=== PATIENT | male | born 1940 | race Caucasian/White ===

== ENCOUNTER 2017-11-06 07:45 | Day surgery (SDC) | payer MEDICARE ==
[2017-10-25 15:55] VITALS: BMI 26.4
[~2017-11-06 07:45] MED LIST: HEPARIN SODIUM,PORCINE 5,000 UNIT/ML 1 ML VIAL SQ ONE; MORPHINE SULFATE 4 MG/ML SYRINGE IV PRN; ONDANSETRON 4 MG/2 ML VIAL IVP PRN; ceFAZolin IN SWFI 2 GM/20 ML SYRINGE IVP ONE
--- NOTE | 2017-11-06 08:46 | P.GSHP ---
History of Present Illness H&P Date: 11/06/17 Chief Complaint: Umbilical hernia, right femoral hernia This a 77-year-old male who has complaints of abdominal mass and pain. He was seen in the office found have a incarcerated umbilical hernia and a reducible right inguinal hernia. Patient presents today for laparoscopic robotic- assisted repair of his hernias. Past Medical History Past Medical History: Diabetes Mellitus, GERD/Reflux, Skin Disorder Additional Past Medical History / Comment(s): heeling shingles on rt side of chest History of Any Multi-Drug Resistant Organisms: None Reported Past Surgical History: Appendectomy, Orthopedic Surgery, Prostate Surgery Additional Past Surgical History / Comment(s): colonsocopy, maye knee arthroscopy , EGD with diliation, Past Anesthesia/Blood Transfusion Reactions: No Reported Reaction Smoking Status: Never smoker - Past Family History Mother Family Medical History: No Reported History Medications and Allergies Home Medications Medication Instructions Recorded Confirmed Type Omeprazole 20 mg PO DAILY 10/25/17 11/06/17 History metFORMIN HCL [Glucophage] 500 mg PO BID 10/25/17 11/06/17 History Allergies Allergy/AdvReac Type Severity Reaction Status Date / Time No Known Allergies Allergy Verified 11/06/17 08:31 Surgical - Exam Vital Signs Temp Pulse Resp BP Pulse Ox 97.1 F L 80 16 193/88 97 11/06/17 08:35 11/06/17 08:35 11/06/17 08:35 11/06/17 08:35 11/06/17 08:35 - General well developed, no distress - Eyes PERRL - ENT normal pinna - Neck no masses - Respiratory normal expansion - Cardiovascular Rhythm: regular - Abdomen Incarcerated umbilical hernia, reducible right inguinal hernia Abdomen: soft, non tender Assessment and Plan Assessment: Incarcerated umbilical hernia Reducible right inguinal hernia We'll perform laparoscopic robotic-assisted repair.
[2017-11-06] MEDS: LACTATED RINGERS 1,000 ML IV SCH (08:48)
[2017-11-06 08:51] LABS: Glucose,Whole Blood 158 mg/dL (75-99)
[2017-11-06] MEDS ORDERED: ePHEDrine SULFATE/0.9% NACL/PF 50 MG/5 ML SYRINGE IV ONE (08:58)
[2017-11-06] MEDS ORDERED: LIDOCAINE 1% INJ 10MG/ML (20 ML MDV) ONE (08:58)
[2017-11-06] MEDS ORDERED: PROPOFOL 10 MG/ML 20 ML VIAL IV ONE (08:58)
[2017-11-06] MEDS ORDERED: ROPIVACAINE 5 MG/ML 30 ML VIAL ONE (08:58)
[2017-11-06] MEDS ORDERED: ROCURONIUM BROMIDE 10 MG/ML 10 ML VIAL IV ONE (08:58)
[2017-11-06] MEDS ORDERED: fentaNYL (PF) 50 MCG/ML 2 ML AMP ONE (08:58)
[2017-11-06] MEDS ORDERED: SUCCINYLCHOLINE CHLORIDE 100 MG/5 ML SYR IV ONE (08:58)
[2017-11-06] MEDS ORDERED: MIDAZOLAM 2 MG/2 ML VIAL ONE (08:58)
[2017-11-06] MEDS ORDERED: BUPIVACAINE (PF) 0.5% 30 ML VIAL SQ ONE ×2 (09:19→09:28)
[2017-11-06] MEDS: HYDROmorphone 0.5 MG/0.5 ML SYRINGE IVP PRN ×2 (10:24→10:30)
[2017-11-06 10:57] VITALS: TEMP 96.8
[2017-11-06 11:22] LABS: Glucose,Whole Blood 181 mg/dL (75-99)
[2017-11-06] MEDS ORDERED: LACTATED RINGERS 1,000 ML IV ONE (11:30)
--- NOTE | 2017-11-06 11:51 | P.ONQ ---
Anesthesiology Proc Note - PNB - Peripheral Nerve Block Performed Bilateral Rectus Abdominis Single Time Out Performed: Yes Indication: Acute Post-Operative Pain, Dx/Pain Location (abdominal pain), Requested by physician Sedation Type: Awake Preparation: Sterile Prep Position: Supine Needle Types: On-Q Needle Size: 50mm (2") Needle Gauge: 21 Technique: Ultrasound Injectate: Other (see comment) (20ml 0.25% Ropivacaine each side, 40 ml total) Blood Aspirated: No Pain Paresthesia on Injection Noted: No Resistance on Injection: Normal Events: Uneventful and Well Tolerated
--- NOTE | 2017-11-06 12:08 | P.OP ---
Date of Procedure: 11/06/17 Preoperative Diagnosis: Umbilical hernia Right inguinal hernia Postoperative Diagnosis: Umbilical hernia Right inguinal hernia Procedure(s) Performed: Laparoscopic robotic-assisted repair of right inguinal hernia and umbilical hernia Anesthesia: ANAND Surgeon: Karan Adams Estimated Blood Loss (ml): 5 Pathology: none sent Condition: stable Disposition: PACU Description of Procedure: The patient's placed on the operating table in the supine position. The patient received general anesthesia. The patient's abdomen was prepped and draped in usual sterile fashion. The skin was anesthetized 1% local Xylocaine at the incision sites. Using an 11 blade a skin incision was made at the umbilicus. The fascia was grasped with a Charlie and then the peritoneal cavity was entered with the Veress needle. Position of the Veress needle was confirmed with a positive drop test. After adequate insufflation a 5 mm trocar was placed into the peritoneal cavity. The Laparoscope was placed the peritoneal cavity. And a robotic 8 mm trocar was placed in the right lateral position and then another 8 mm robotic trochars placed in the left lateral position. The original 5 mm trocar was exchanged for a 12 mm trocar. The patient was placed in reverse Trendelenburg and then the patient was docked to the robot. Next the peritoneum over top of the hernia was incised and then using blunt and sharp dissection and electrocautery the hernia sac was dissected free from the floor of the inguinal canal. The hernia sac was completely reduced into the peritoneal cavity. And then using the Pro patient registration manager mesh the hernia was repaired. The peritoneum was then sutured with 20V lock suture. The patient was then undocked the robot. The needle was withdrawn from the peritoneal cavity. The umbilical hernia site was closed with 0 Ethibond suture. The skin was closed interrupted 3-0 Monocryl suture. Dermabond dressing was applied. Patient was sent to recovery in stable condition.
[2017-11-06 12:27] VITALS: RESP 18
[2017-11-06] MEDS ORDERED: KETOROLAC 30 MG/ML 1 ML VIAL IVP ONE (12:30)
[2017-11-06] MEDS ORDERED: diphenhydrAMINE 50 MG/ML 1 ML VIAL IVP ONE (12:33)
[2017-11-06] MEDS ORDERED: HYDROcodone/APAP 7.5-325MG 1 EACH TAB PO ONE (12:35)
[2017-11-06 14:19] VITALS: BP 120/69; PULSE 96
== END 2017-11-06 14:47 | disposition home or self-care (01) ==
LOC: OR 07:45
PROVIDERS: ATTEND Surgery
DX: K40.90 Unilateral inguinal hernia, without obstruction or gangrene, not specified as recurrent (principal); K42.0 Umbilical hernia with obstruction, without gangrene; E11.9 Type 2 diabetes mellitus without complications; Z79.84 Long term (current) use of oral hypoglycemic drugs; K21.9 Gastro-esophageal reflux disease without esophagitis; Z79.899 Other long term (current) drug therapy
CPT/HCPCS: 49650; 64488; C1781; J2250; J1200; J1644; J2405; J2001; J3010; J1885; J2795; J0330; J2704; J1170; J0690

== ENCOUNTER → 2019-01-14 | Outpatient (CLI) | payer MEDICARE ==
[2019-01-14 08:08] LABS: African American GFR (CKD) >90 (>60 ml/min/1.73 sqM); Blood Urea Nitrogen 17 mg/dL (9-20); Non-African American GFR(CKD) 81 (>60 ml/min/1.73 sqM)
--- NOTE | 2019-01-14 10:42 | CT ---
EXAMINATION TYPE: CT abdomen pelvis w con DATE OF EXAM: 01/14/2019 COMPARISON: None HISTORY: GERD, Rt groin pain CT DLP: 654.8 mGycm Automated exposure control for dose reduction was used. TECHNIQUE: Helical acquisition of images was performed from the lung bases through the pelvis. CONTRAST: Performed with Oral Contrast and with IV Contrast, patient injected with 100 mL of Isovue 300. FINDINGS: LUNG BASES: Densely calcified lesion is seen in the left costophrenic angle measuring up to 1.1 cm. O therwise, visualized lung bases are clear. Apparent mild thickening along the right GE junction which is best seen on axial image 13. LIVER/GB: No significant abnormality is appreciated. PANCREAS: No significant abnormality is seen. SPLEEN: No significant abnormality is seen. ADRENALS: No significant abnormality is seen. KIDNEYS: There is decreased enhancement and loss of the cortex along the inferior and lateral right k idney which measures 3.1 x 3.0 cm in AP and craniocaudad dimension. There are also smaller cysts in t he bilateral kidneys measuring up to 2.5 cm. No evidence of hydronephrosis. FREE AIR: No free air is visualized. RETROPERITONEAL ADENOPATHY: None visualized REPRODUCTIVE ORGANS: A few calcifications are seen within the prostate gland. Prostate gland is mildl y enlarged. [id number] bilateral hydroceles. URINARY BLADDER: Mild thickening of the anterior bladder wall. Mild mass effect upon the posterior b ladder wall from enlarged prostate gland. PELVIC ADENOPATHY: None visualized. OSSEOUS STRUCTURES: Multilevel degenerative changes are seen throughout the lower thoracic and lumba r spine. Degenerative changes are seen in the bilateral hips, right greater than left. Scattered lyti c and sclerotic lesions are seen along the medial iliac bones. BOWEL: Diverticulosis of the sigmoid colon without evidence of diverticulitis. No bowel obstruction. No ascites. No free intraperitoneal air. OTHER: Scattered calcifications of the infrarenal abdominal aorta and iliac vessels. IMPRESSION: HYPOENHANCEMENT OF THE INFERIOR POLE OF THE RIGHT KIDNEY WITH A SMALL AMOUNT OF MILD ADJACENT FAT STR ANDING. FINDINGS MAY BE ON THE BASIS OF PREVIOUS RENAL INSULT, BUT DIFFERENTIAL INCLUDES RENAL MASS, LOCALIZED PYELONEPHRITIS OR RENAL VASCULITIS. CORRELATION WITH PATIENT HISTORY AND FURTHER EVALUATION WITH MR RENAL PROTOCOL MAY BE OBTAINED. PROSTATOMEGALY AND URINARY BLADDER WALL THICKENING MAY BE RELATED TO BLADDER OUTLET OBSTRUCTION. DIVERTICULOSIS WITHOUT EVIDENCE OF DIVERTICULITIS. NONSPECIFIC SCLEROTIC AND LYTIC LESIONS ALONG THE MEDIAL ILIAC BONES MAY BE DEGENERATIVE, BUT OTHER E TIOLOGIES ARE NOT EXCLUDED. CORRELATION WITH BONE SCANS RECOMMENDED. MILD THICKENING ALONG THE RIGHT LATERAL GE JUNCTION MAY BE RELATED TO CONTRACTED ESOPHAGUS, BUT UNDER LYING MASS BE DIFFICULT TO EXCLUDE. DIRECT VISUALIZATION IS RECOMMENDED.
== END | disposition home or self-care (01) ==
LOC: RADCTMAIN 07:34
PROVIDERS: ATTEND Surgery
DX: K57.90 Diverticulosis of intestine, part unspecified, without perforation or abscess without bleeding (principal); R93.421 Abnormal radiologic findings on diagnostic imaging of right kidney; N40.0 Benign prostatic hyperplasia without lower urinary tract symptoms; M89.9 Disorder of bone, unspecified
CPT/HCPCS: 82565; 84520; 74177; 36415; Q9967

== ENCOUNTER 2019-01-22 10:33 | Day surgery (SDC) | payer MEDICARE ==
[2019-01-20 13:33] VITALS: BMI 25.0
[~2019-01-22 10:33] MED LIST changes: -HEPARIN SODIUM,PORCINE 5,000 UNIT/ML 1 ML VIAL SQ ONE; +LACTATED RINGERS 1,000 ML IV SCH; +LIDOCAINE 1% 20 ML VIAL (10MG/ML) FOR IV START INTRADERMA PRN; -MORPHINE SULFATE 4 MG/ML SYRINGE IV PRN; -ONDANSETRON 4 MG/2 ML VIAL IVP PRN; -ceFAZolin IN SWFI 2 GM/20 ML SYRINGE IVP ONE
[2019-01-22 10:58] VITALS: TEMP 97.8
[2019-01-22 11:05] LABS: Glucose,Whole Blood 135 mg/dL (75-99)
[2019-01-22] MEDS ORDERED: PROPOFOL 10 MG/ML 20 ML VIAL IV ONE (11:19)
[2019-01-22] MEDS ORDERED: LIDOCAINE 1% INJ 10MG/ML (20 ML MDV) ONE (11:19)
--- NOTE | 2019-01-22 11:28 | P.GSHP ---
History of Present Illness H&P Date: 01/22/19 Chief Complaint: GERD This a 78-year-old male with history of GERD. His recent CAT scan shows evidence of thickening the esophagus. He presents today for EGD. Past Medical History Past Medical History: Diabetes Mellitus, GERD/Reflux Additional Past Medical History / Comment(s): HX SHINGLES (2018), PAIN RIGHT SHOULDER-RECEIVING INJECTIONS (LAST DECEMBER 2018)., STATES PAIN IN GROIN - HAD CT SCAN WAITING FOR RESULTS. History of Any Multi-Drug Resistant Organisms: None Reported Past Surgical History: Appendectomy, Hernia Repair, Orthopedic Surgery, Prostate Surgery Additional Past Surgical History / Comment(s): colonsocopy, maye knee arthroscopy, EGD with diliation, INGUINA HERNIA REPAIR., UMBILICAL HERNIA. Past Anesthesia/Blood Transfusion Reactions: No Reported Reaction Past Psychological History: No Psychological Hx Reported Smoking Status: Never smoker Past Alcohol Use History: Rare Past Drug Use History: None Reported - Past Family History Mother Family Medical History: No Reported History Medications and Allergies Home Medications Medication Instructions Recorded Confirmed Type Omeprazole 20 mg PO DAILY 10/25/17 01/22/19 History metFORMIN HCL [Glucophage] 500 mg PO BID 10/25/17 01/22/19 History traMADol HCL [Ultram] 100 mg PO HS PRN 01/20/19 01/22/19 History Allergies Allergy/AdvReac Type Severity Reaction Status Date / Time No Known Allergies Allergy Verified 01/22/19 10:54 Surgical - Exam Vital Signs Temp Pulse Resp BP Pulse Ox 97.8 F 74 16 218/100 98 01/22/19 10:56 01/22/19 10:56 01/22/19 10:56 01/22/19 10:56 01/22/19 10:56 - General well developed, well nourished, no distress - Eyes PERRL - ENT normal pinna - Neck no masses - Respiratory normal expansion - Cardiovascular Rhythm: regular - Abdomen Abdomen: soft, non tender Results - Labs Abnormal Lab Results - Last 24 Hours (Table) 01/22/19 Range/Units 11:02 POC Glucose (mg/dL) 135 H (75-99) mg/dL Assessment and Plan Assessment: GERD. We'll perform EGD.
--- NOTE | 2019-01-22 11:33 | P.OP ---
Date of Procedure: 01/22/19 Preoperative Diagnosis: GERD Postoperative Diagnosis: GERD Hiatal hernia Anesthesia: MAC Surgeon: Karan Adams Pathology: other (Antrum, esophagus) Condition: stable Disposition: PACU Description of Procedure: Patient's placed on the endoscopy table in the lateral position. He received IV sedation. The gastroscope placed oropharynx passed in the esophagus into the stomach. Scope was then placed through the pylorus. The first and second portion of the duodenum appeared normal. Scope was then brought back the antrum this. Mildly inflamed. A biopsies performed. The scope was then brought back and the remainder some appeared normal. The scope was then retroflexed and there was a sliding hiatal hernia seen. The distal esophagus was at 38 cm. The distal esophagus. Inflamed a biopsies performed. The proximal esophagus appeared normal. Scope was withdrawn for patient.
[2019-01-22 12:27] VITALS: BP 127/78; PULSE 78; RESP 18
== END 2019-01-22 12:28 | disposition home or self-care (01) ==
LOC: ORWHC2ENDO 10:33
PROVIDERS: ATTEND Surgery
DX: K29.50 Unspecified chronic gastritis without bleeding (principal); K21.0 Gastro-esophageal reflux disease with esophagitis; K44.9 Diaphragmatic hernia without obstruction or gangrene; E11.9 Type 2 diabetes mellitus without complications; Z86.19 Personal history of other infectious and parasitic diseases; Z79.84 Long term (current) use of oral hypoglycemic drugs; Z79.899 Other long term (current) drug therapy
CPT/HCPCS: 88305; 43239; J2001; J2704

== ENCOUNTER → 2019-02-04 | Outpatient (CLI) | payer MEDICARE ==
[2019-02-04 15:16] LABS: Basophils # (A) 0.1 k/uL (0-0.2); Basophils % (A) 1 %; Eosinophils # (A) 0.3 k/uL (0-0.7); Eosinophils % (A) 5 %; HCT 42.8 % (39.0-53.0); HGB 14.3 gm/dL (13.0-17.5); Lymphocytes # (A) 1.3 k/uL (1.0-4.8); Lymphocytes % (A) 22 %; MCH 31.2 pg (25.0-35.0); MCHC 33.5 g/dL (31.0-37.0); MCV 93.4 fL (80.0-100.0); Mean Platelet Volume 6.8; Monocytes # (A) 0.3 k/uL (0-1.0); Monocytes % (A) 5 %; Neutrophils # (A) 3.8 k/uL (1.3-7.7); Neutrophils % (A) 66 %; Platelet Count 234 k/uL (150-450); RBC 4.58 m/uL (4.30-5.90); RDW 14.3 % (11.5-15.5); WBC 5.8 k/uL (3.8-10.6)
== END | disposition home or self-care (01) ==
LOC: LABPAT 14:12
PROVIDERS: ATTEND Surgery
DX: Z01.818 Encounter for other preprocedural examination (principal); K21.0 Gastro-esophageal reflux disease with esophagitis; Z01.812 Encounter for preprocedural laboratory examination
CPT/HCPCS: 36415; 85025; 93005

== ENCOUNTER → 2019-02-04 | Outpatient (CLI) | payer MEDICARE ==
--- NOTE | 2019-02-04 16:01 | NM ---
EXAMINATION TYPE: NM bone scan whole body DATE OF EXAM: 02/04/2019 COMPARISON: CT scan 01/14/2019 HISTORY: Abnormal CT scan Delayed whole-body scanning was performed following the injection of 23.0 mCi Tc 99m MDP. Images acq uired 3 hours post injection. FINDINGS: Abnormal uptake involving the left knee and shoulders typical of arthritic change. Abnormal uptake in volving the cervical, thoracic and lumbar spine likely degenerative. No suspicious increased or reduced uptake corresponding to the CT abnormality. Faint uptake along the lateral margin the left femur is nonspecific. IMPRESSION: 1. No suspicious finding corresponding to the CT abnormality. 2. Abnormal uptake throughout the vertebral column likely degenerative. 3. nonspecific uptake involving the lateral cortex of the left femur. If the patient is point tender consider x-ray.
== END | disposition home or self-care (01) ==
LOC: RADNMMAIN 11:14
PROVIDERS: ATTEND Family Medicine
DX: R93.89 Abnormal findings on diagnostic imaging of other specified body structures (principal)
CPT/HCPCS: 78306; A9503

== ENCOUNTER 2019-02-14 06:10 | Inpatient (IN) | payer MEDICARE ==
[~2019-02-14 06:10] MED LIST changes: -LIDOCAINE 1% 20 ML VIAL (10MG/ML) FOR IV START INTRADERMA PRN; +MIDAZOLAM 2 MG/2 ML VIAL IV PRN
[2019-02-14 06:59] LABS: Glucose,Whole Blood 165 mg/dL (75-99)
[2019-02-14] MEDS ORDERED: LIDOCAINE 1% 20 ML VIAL (10MG/ML) FOR IV START INTRADERMA ONE (07:01)
[2019-02-14] MEDS: ONDANSETRON 4 MG/2 ML VIAL IVP ONE ×2 (07:13→11:48)
[2019-02-14] MEDS: HEPARIN SODIUM,PORCINE 5,000 UNIT/ML 1 ML VIAL SQ ONE ×2 (07:13→11:48)
[2019-02-14] MEDS: DEXAMETHASONE SOD PHOSPHATE 10 MG/ML 1 ML VIAL IV ONE ×2 (07:13→11:48)
[2019-02-14] MEDS ORDERED: KETOROLAC 30 MG/ML 1 ML VIAL ONE (07:55)
[2019-02-14] MEDS ORDERED: MIDAZOLAM 2 MG/2 ML VIAL ONE (07:55)
[2019-02-14] MEDS ORDERED: ePHEDrine SULFATE/0.9% NACL/PF 50 MG/5 ML SYRINGE IV ONE (07:55)
[2019-02-14] MEDS ORDERED: LIDOCAINE 1% INJ 10MG/ML (20 ML MDV) ONE (07:55)
[2019-02-14] MEDS ORDERED: SUCCINYLCHOLINE CHLORIDE 100 MG/5 ML SYR IV ONE (07:55)
[2019-02-14] MEDS ORDERED: ROCURONIUM BROMIDE 10 MG/ML 10 ML VIAL IV ONE (07:55)
[2019-02-14] MEDS ORDERED: GLYCOPYRROLATE 0.2 MG/ML 2 ML VIAL ONE (07:55)
[2019-02-14] MEDS ORDERED: fentaNYL (PF) 50 MCG/ML 2 ML AMP ONE (07:55)
[2019-02-14] MEDS ORDERED: NEOSTIGMINE 1 MG/ML 10 ML VIAL ONE (07:55)
[2019-02-14] MEDS ORDERED: PROPOFOL 10 MG/ML 20 ML VIAL IV ONE (07:55)
--- NOTE | 2019-02-14 08:00 | P.GSHP ---
History of Present Illness H&P Date: 02/14/19 Chief Complaint: GERD This is a 78-year-old male referred from Dr. Ng.The patient has had long- standing problems with reflux esophagitis. The patient underwent recent EGD is found have evidence of esophagitis. Patient has been well informed on the pro cedure of laparoscopic Manuel fundoplication. The patient is aware the risk of the conversion to the open procedure, risk of injury to the stomach, liver and spleen. The patient is also a risk of recurrent GERD and dysphagia symptoms. The patient understands there is a postoperative diet of full liquids for 2 weeks after surgery. Past Medical History Past Medical History: Diabetes Mellitus, GERD/Reflux, Hypertension, Skin Disorder Additional Past Medical History / Comment(s): arthritis History of Any Multi-Drug Resistant Organisms: None Reported Past Surgical History: Appendectomy, Orthopedic Surgery, Prostate Surgery Additional Past Surgical History / Comment(s): colonsocopy, maye knee arthroscopy, EGD with diliation, Past Anesthesia/Blood Transfusion Reactions: No Reported Reaction Smoking Status: Never smoker - Past Family History Mother Family Medical History: No Reported History Medications and Allergies Home Medications Medication Instructions Recorded Confirmed Type Omeprazole 20 mg PO DAILY 10/25/17 02/14/19 History metFORMIN HCL [Glucophage] 500 mg PO DAILY 10/25/17 02/14/19 History traMADol HCL [Ultram] 100 mg PO HS PRN 01/20/19 02/14/19 History Acetaminophen [Tylenol Arthritis] 650 mg PO BID 02/07/19 02/14/19 History Lisinopril [Zestril] 20 mg PO DAILY 02/07/19 02/14/19 History Allergies Allergy/AdvReac Type Severity Reaction Status Date / Time No Known Allergies Allergy Verified 02/14/19 06:42 Surgical - Exam Vital Signs Temp Pulse Resp BP Pulse Ox 96.9 F L 75 18 186/93 95 02/14/19 06:48 02/14/19 06:48 02/14/19 06:48 02/14/19 06:48 02/14/19 06:48 - General well developed, well nourished, no distress - Eyes PERRL - ENT normal pinna - Neck no masses - Respiratory normal expansion - Cardiovascular Rhythm: regular - Abdomen Abdomen: soft, non tender Results - Labs Abnormal Lab Results - Last 24 Hours (Table) 02/14/19 Range/Units 06:58 POC Glucose (mg/dL) 165 H (75-99) mg/dL Assessment and Plan Assessment: GERD. We'll perform laparoscopic Manuel fundoplication.
[2019-02-14] MEDS ORDERED: BUPIVACAIN-EPI 0.25%-1:200,000 30 ML VIAL SQ ONE (08:22)
[2019-02-14] MEDS ORDERED: ONDANSETRON 4 MG/2 ML VIAL IVP PRN (08:54)
--- NOTE | 2019-02-14 09:07 | P.OP ---
Date of Procedure: 02/14/19 Preoperative Diagnosis: Screening colonoscopy Postoperative Diagnosis: Screening colonoscopy Procedure(s) Performed: Colonoscopy Anesthesia: MAC Surgeon: Karan Adams Pathology: none sent Condition: stable Disposition: PACU Description of Procedure: PROCEDURE: The patient was placed on the endoscopy table in the lateral position. Digital rectal examination was performed which revealed no abnormalities. es. Flexible colonoscope was then placed in the patient's anus and passed throughout the entire colon. The ileocecal valve was visualized. The cecum, ascending, transverse, descending and sigmoid colon were normal. The rectum was normal as well. There were no masses, polyps or diverticula noted in the entire colon. SUMMARY OF FINDINGS: Normal colonoscopy.
[2019-02-14 09:10] LABS: Glucose,Whole Blood 210 mg/dL (75-99)
--- NOTE | 2019-02-14 09:11 | P.OP ---
Date of Procedure: 02/14/19 Preoperative Diagnosis: GERD Postoperative Diagnosis: GERD Procedure(s) Performed: Laparoscopic Manuel fundoplication Anesthesia: GETA Surgeon: Karan Adams Estimated Blood Loss (ml): 5 Pathology: none sent Condition: stable Disposition: PACU Description of Procedure: Harmonic Manuel
[2019-02-14] MEDS ORDERED: INSULIN ASPART (NovoLOG) 100 UNIT/ML VIAL SQ ONE (09:21)
[2019-02-14] MEDS: HYDROmorphone 0.5 MG/0.5 ML SYRINGE IVP PRN ×6 (09:25→22:18)
[2019-02-14] MEDS: D5-0.45% NACL WITH KCL 20MEQ/L 1,000 ML IV SCH ×3 (11:32→23:23)
[2019-02-14 13:17] LABS: Glucose,Whole Blood 233 mg/dL (75-99)
--- NOTE | 2019-02-14 13:45 | P.CONS ---
History of Present Illness - Reason for Consult Recommendations regarding diabetic medications and antidepressants medicati - History of Present Illness Patient is 72-year-old cousin male admitted for elective laparoscopic Manuel fundoplication 6, underwent surgery. Patient is complaining of pain in the sh oulder area which is expected post surgery because of the abdominal insufflation with air, patient denied any fever chills dysuria. Patient is presently nothing by mouth. Patient to was on metformin which will be held and patient was started on standing scale insulin. Patient is expected to have perioperative hypotension because of which I'll hold off on antidepressant medication which is AMEYA inhibitor at this time. Review of Systems REVIEW OF SYSTEMS: CONSTITUTIONAL: No fever, no malaise, no fatigue. HEENT: No recent visual problems or hearing problems. Denied any sore throat. CARDIOVASCULAR: No chest pain, orthopnea, PND, no palpitations, no syncope. PULMONARY: No shortness of breath, no cough, no hemoptysis. GASTROINTESTINAL: No diarrhea, no nausea, no vomiting, NEUROLOGICAL: No headaches, no weakness, no numbness. HEMATOLOGICAL: Denies any bleeding or petechiae. GENITOURINARY: Denies any burning micturition, frequency, or urgency. MUSCULOSKELETAL/RHEUMATOLOGICAL: Denies any joint pain, swelling, or any muscle pain. ENDOCRINE: Denies any polyuria or polydipsia. The rest of the 14-point review of systems is negative. Past Medical History Past Medical History: Diabetes Mellitus, GERD/Reflux, Hypertension, Skin Disorder Additional Past Medical History / Comment(s): arthritis History of Any Multi-Drug Resistant Organisms: None Reported Past Surgical History: Appendectomy, Orthopedic Surgery, Prostate Surgery Additional Past Surgical History / Comment(s): colonsocopy, maye knee arthroscopy, EGD with diliation, Past Anesthesia/Blood Transfusion Reactions: No Reported Reaction Past Psychological History: No Psychological Hx Reported Smoking Status: Never smoker Past Alcohol Use History: Rare Past Drug Use History: None Reported - Past Family History Mother Family Medical History: No Reported History Medications and Allergies Home Medications Medication Instructions Recorded Confirmed Type Omeprazole 20 mg PO DAILY 10/25/17 02/14/19 History metFORMIN HCL [Glucophage] 500 mg PO DAILY 10/25/17 02/14/19 History traMADol HCL [Ultram] 100 mg PO HS PRN 01/20/19 02/14/19 History Acetaminophen [Tylenol Arthritis] 650 mg PO BID 02/07/19 02/14/19 History Lisinopril [Zestril] 20 mg PO DAILY 02/07/19 02/14/19 History Allergies Allergy/AdvReac Type Severity Reaction Status Date / Time No Known Allergies Allergy Verified 02/14/19 06:42 Physical Exam Vitals: Vital Signs Temp Pulse Resp BP BP Pulse Ox 02/14/19 12:07 98 149/80 93 L 02/14/19 11:51 94 166/82 94 L 02/14/19 11:37 94 172/86 93 L 02/14/19 11:22 97 173/78 94 L 02/14/19 11:07 99 178/86 94 L 02/14/19 10:52 88 176/83 96 02/14/19 10:37 66 173/66 98 02/14/19 10:22 74 165/91 94 L 02/14/19 10:07 69 185/76 95 02/14/19 09:52 97.7 F 71 187/91 95 02/14/19 09:30 79 18 174/89 96 02/14/19 09:15 67 194/91 98 02/14/19 09:00 80 16 193/85 99 02/14/19 08:55 97.0 F L 85 16 196/92 98 02/14/19 06:48 96.9 F L 75 18 186/93 95 Intake and Output 02/13/19 02/14/19 02/14/19 22:59 06:59 14:59 Intake Total 750 Output Total 5 Balance 745 Intake: IV 750 Output: Estimated Blood Loss 5 Other: Weight 72.575 kg PHYSICAL EXAMINATION: GENERAL: The patient is alert and oriented x3, not in any acute distress. Well developed, well nourished. HEENT: Pupils are round and equally reacting to light. EOMI. No scleral icterus. No conjunctival pallor. Normocephalic, atraumatic. No pharyngeal erythema. No thyromegaly. CARDIOVASCULAR: S1 and S2 present. No murmurs, rubs, or gallops. PULMONARY: Chest is clear to auscultation, no wheezing or crackles. ABDOMEN: Soft, nontender, nondistended, normoactive bowel sounds. No palpable organomegaly. Surgical site area appears to be not infected and clean MUSCULOSKELETAL: No joint swelling or deformity. EXTREMITIES: No cyanosis, clubbing, or pedal edema. NEUROLOGICAL: Gross neurological examination did not reveal any focal deficits. SKIN: No rashes. Results Labs: Abnormal Lab Results - Last 24 Hours (Table) 02/14/19 02/14/19 02/14/19 Range/Units 06:58 09:06 13:05 POC Glucose (mg/dL) 165 H 210 H 233 H (75-99) mg/dL Assessment and Plan Plan: Type 2 diabetes mellitus: Sliding scale insulin hold off metformin as mentioned above -Hypertension hold off on antidepressant medications because of above-mentioned reasons -Gastroesophageal reflux disease for which patient underwent Manuel fundoplication resume his proton pump inhibitor
[2019-02-14] MEDS: ACETAMINOPHEN IV (For NPO) 1,000 MG in EMPTY BAG 1 BAG IVPB SCH ×3 (14:20→23:19)
[2019-02-14] MEDS: INSULIN ASPART (NovoLOG) 100 UNIT/ML VIAL SQ SCH ×3 (14:20→21:22)
--- NOTE | 2019-02-14 16:09 | FL ---
EXAMINATION TYPE: FL esophagus cervic/pharynx DATE OF EXAM: 02/14/2019 CLINICAL HISTORY: Status post gastric surgery. Evaluate for leak and obstruction. TECHNIQUE: Limited esophagram is performed utilizing 50 mL of Isovue-370. A total of 46 seconds of f luoroscopic time was utilized during procedure. 13 fluoroscopic images were saved during the examinat ion. FINDINGS: Trace amount of pneumoperitoneum, postsurgical is seen beneath the left hemidiaphragm. The patient swallowed contrast without difficulty or delay. There is good flow of contrast along the el phragmatic hiatus into the stomach, there is no evidence of contrast extravasation to suggest leak. N ote is made of a tortuous corkscrew esophagus and esophageal spasms. Patient remains asymptomatic. IMPRESSION: No evidence of leak or significant obstruction status recent gastric surgery. Note made o f minimal postoperative pneumoperitoneum deep to the left hemidiaphragm and esophageal spasms.
[2019-02-14 16:59] LABS: Glucose,Whole Blood 196 mg/dL (75-99)
[2019-02-14] MEDS: ACETAMINOPHEN TAB 325 MG TAB PO SCH (20:25)
[2019-02-14 21:20] LABS: Glucose,Whole Blood 205 mg/dL (75-99)
[2019-02-15] MEDS: HYDROmorphone 0.5 MG/0.5 ML SYRINGE IVP PRN ×5 (04:47→19:29)
[2019-02-15] MEDS: ACETAMINOPHEN IV (For NPO) 1,000 MG in EMPTY BAG 1 BAG IVPB SCH (05:30)
[2019-02-15 07:18] LABS: Glucose,Whole Blood 208 mg/dL (75-99)
[2019-02-15] MEDS: PANTOPRAZOLE 40 MG TABLET PO SCH (07:29)
[2019-02-15] MEDS: LISINOPRIL 20 MG TAB PO SCH (07:29)
[2019-02-15] MEDS: INSULIN ASPART (NovoLOG) 100 UNIT/ML VIAL SQ SCH ×4 (07:29→20:57)
[2019-02-15] MEDS ORDERED: ENOXAPARIN 40 MG/0.4 ML SYRINGE SQ SCH (09:00)
[2019-02-15] MEDS: ACETAMINOPHEN TAB 325 MG TAB PO SCH ×2 (10:06→20:57)
[2019-02-15] MEDS: D5-0.45% NACL WITH KCL 20MEQ/L 1,000 ML IV SCH (10:07)
[2019-02-15 11:24] LABS: Glucose,Whole Blood 233 mg/dL (75-99)
[2019-02-15] MEDS: SIMETHICONE 40 MG/0.6 ML DROPS 2,000 MG/30 ML BOTTLE PO SCH ×4 (11:49→20:58)
--- NOTE | 2019-02-15 12:14 | P.PN ---
Subjective patient is status post left. It Manuel fundoplication patient is comparing of her continued severe abdominal patient patient's abdomen is distended probably because of constipation probably because of opiates and patient is receiving medications for constipation as well as pain with medications. Patient blood pressure is elevated because of her pain. I will these start him back on his lisinopril. Constitutional: Denied any fatigue denied any fever. Cardio vascular: denied any chest pain, palpitations Gastrointestinal as mentioned in HPI Pulmonary: Denied any shortness of breath cough Neurologic denied any new focal deficits All inpatient medications were reviewed and appropriate changes in these medications as dictated in the interval history and assessment and plan. Objective - Vital Signs Vital signs: Vital Signs Temp 99.4 F 02/15/19 07:24 Pulse 89 02/15/19 08:00 Resp 02/15/19 08:00 BP 171/81 02/15/19 07:24 Pulse Ox 95 02/15/19 07:24 Intake & Output 02/14/19 02/15/19 02/15/19 18:59 06:59 18:59 Intake Total 750 1000 240 Output Total 5 725 125 Balance 745 275 115 Intake: IV 750 Intake, IV Titration 1000 Amount D5-0.45% NaCl with KCl 1000 20Meq/l 1,000 ml @ 125 mls/hr IV .Q8H [facility] Rx#: [id number] Oral 240 Output: Urine 525 125 Post Void Residual 200 Estimated Blood Loss 5 Other: Voiding Method Toilet Toilet # Voids 0 - Exam PHYSICAL EXAMINATION: GENERAL: The patient is alert and oriented x3, not in any acute distress. Well developed, well nourished. HEENT: Pupils are round and equally reacting to light. EOMI. No scleral icterus. No conjunctival pallor. Normocephalic, atraumatic. No pharyngeal erythema. No thyromegaly. CARDIOVASCULAR: S1 and S2 present. No murmurs, rubs, or gallops. PULMONARY: Chest is clear to auscultation, no wheezing or crackles. ABDOMEN: minimal diffuse tenderness abdomen is distended tympanic sluggish bowel sounds. Surgical site area appears to be not infected and clean MUSCULOSKELETAL: No joint swelling or deformity. EXTREMITIES: No cyanosis, clubbing, or pedal edema. NEUROLOGICAL: Gross neurological examination did not reveal any focal deficits. SKIN: No rashes. - Labs Labs: Abnormal Lab Results - Last 24 Hours (Table) 02/14/19 02/14/19 02/14/19 Range/Units 13:05 16:46 21:09 POC Glucose (mg/dL) 233 H 196 H 205 H (75-99) mg/dL 02/15/19 02/15/19 Range/Units 07:06 11:13 POC Glucose (mg/dL) 208 H 233 H (75-99) mg/dL Assessment and Plan Plan: Type 2 diabetes mellitus: Sliding scale insulin hold off metformin as mentioned above -Hypertension patient blood pressure is elevated because of pain and patient was started back on his lisinopril -Abdominal pain mostly secondary to constipation and opiate analgesia management as per primary service. -Gastroesophageal reflux disease for which patient underwent Manuel f undoplication on proton pump inhibitor
[2019-02-15] MEDS ORDERED: TAMSULOSIN 0.4 MG CAP.ER.24H PO STA (12:54)
--- NOTE | 2019-02-15 13:02 | P.PN ---
Subjective Progress Note Date: 02/15/19 CHIEF COMPLAINT: Gastroesophageal reflux disease HISTORY OF PRESENT ILLNESS: The patient is a 78-year-old male postop day 1 status post Manuel fundoplasty, 02/14/2019. He complains of lower abdominal, suprapubic pain. He has troubles urinating. He is not passing flatus. He has gas bloat. Family is at bedside. He complains of moderate incisional pain. He is barely voiding. He is a diabetic. ROS: No bowel movements. No fevers or chills. No new chest pain. No productive sputum PHYSICAL EXAM: VITAL SIGNS: Reviewed CONSTITUTIONAL: Well developed and in no acute distress. EYES: Conjuctivae without sclera icterus. Extraocular movements grossly intact. HEAD, EARS, NOSE, THROAT: Moist buccal mucosa. Head is atraumatic, normocephalic. Hears conversational speech. No nasal drainage. NECK: Supple. No thyroidomegaly. RESPIRATORY: Non-labored respirations and equal bilateral excursions. CARDIOVASCULAR: Palpable 2+ radial pulses. Regular rate. Regular rhythm. ABDOMEN: Incisions clean dry and intact. Soft. No peritonitis. Tender along upper and lower abdomen. MUSCULOSKELETAL: No gross deformity of the lower extremities noted. No clubbing. No cyanosis. SKIN: Good skin turgor. Well perfused. NEUROLOGIC: Cranial nerves I through XII grossly intact. No focal or lateralizing signs. PSYCH: Appropriate affect. Alert and oriented to person, place and time. CLINCAL LABS: Blood sugar is elevated over 200 STUDIES: Esophagram demonstrated no leaks or obstruction ASSESSMENT: 1. Gastroesophageal reflux disease 2. Urinary retention 3. Diabetes type 2 4. Gas bloat PLAN: 1. He has moderate abdominal pain and abdominal distention. Recommend simethicone DROPS 2. IVF fluids adjusted down from 125 D5 to 75 normal saline 3. Added Reglan for GI motility 4. Added Toradol for pain. 5. Lovenox switched to heparin to decrease risk of bleeding 6. Flomax added for urinary retention. 7. Continue hospitalization Objective - Vital Signs Vital signs: Vital Signs Temp 99.4 F 02/15/19 07:24 Pulse 89 02/15/19 08:00 Resp 14 02/15/19 08:00 BP 171/81 02/15/19 07:24 Pulse Ox 95 02/15/19 07:24 Intake & Output 02/14/19 02/15/19 02/15/19 18:59 06:59 18:59 Intake Total 750 1000 240 Output Total 5 725 125 Balance 745 275 115 Intake: IV 750 Intake, IV Titration 1000 Amount D5-0.45% NaCl with KCl 1000 20Meq/l 1,000 ml @ 125 mls/hr IV .Q8H [facility] Rx#: [id number] Oral 240 Output: Urine 525 125 Post Void Residual 200 Estimated Blood Loss 5 Other: Voiding Method Toilet Toilet # Voids 0 - Labs Labs: Abnormal Lab Results - Last 24 Hours (Table) 02/14/19 02/14/19 02/14/19 Range/Units 13:05 16:46 21:09 POC Glucose (mg/dL) 233 H 196 H 205 H (75-99) mg/dL 02/15/19 02/15/19 Range/Units 07:06 11:13 POC Glucose (mg/dL) 208 H 233 H (75-99) mg/dL Assessment and Plan (1) Hiatal hernia with gastroesophageal reflux Current Visit: Yes Status: Acute Code(s): K21.9 - GASTRO-ESOPHAGEAL REFLUX DISEASE WITHOUT ESOPHAGITIS; K44.9 - DIAPHRAGMATIC HERNIA WITHOUT OBSTRUCTION OR GANGRENE SNOMED Code(s): 778171352 (2) Diabetes type 2, uncontrolled Current Visit: Yes Status: Acute Code(s): E11.65 - TYPE 2 DIABETES MELLITUS WITH HYPERGLYCEMIA SNOMED Code(s): 048683858 (3) Urinary retention with incomplete bladder emptying Current Visit: Yes Status: Acute Code(s): R33.9 - RETENTION OF URINE, UNSPECIFIED SNOMED Code(s): 207724465 (4) Postoperative pain Current Visit: Yes Status: Acute Code(s): G89.18 - OTHER ACUTE POSTPROCEDURAL PAIN SNOMED Code(s): 373917932
[2019-02-15] MEDS: SODIUM CHLORIDE 0.9% 1,000 ML IV SCH (13:05)
[2019-02-15 13:07] LABS: African American GFR (CKD) >90 (>60 ml/min/1.73 sqM); Anion Gap 10 mmol/L; Blood Urea Nitrogen 22 mg/dL (9-20); Calcium 9.2 mg/dL (8.4-10.2); Carbon Dioxide 24 mmol/L (22-30); Chloride 101 mmol/L (98-107); Glucose 216 mg/dL (74-99); Potassium 4.8 mmol/L (3.5-5.1); Sodium 135 mmol/L (137-145)
[2019-02-15] MEDS: METOCLOPRAMIDE 5 MG/ML 2 ML VIAL IVP SCH ×2 (13:07→17:23)
[2019-02-15] MEDS: KETOROLAC 30 MG/ML 1 ML VIAL IVP SCH ×2 (13:07→17:23)
[2019-02-15 13:08] LABS: Basophils % (A) 1 %; Eosinophils % (A) 0 %; HCT 43.1 % (39.0-53.0); HGB 14.3 gm/dL (13.0-17.5); Lymphocytes # (A) 0.5 k/uL (1.0-4.8); Lymphocytes % (A) 6 %; MCH 31.1 pg (25.0-35.0); MCHC 33.1 g/dL (31.0-37.0); MCV 94.1 fL (80.0-100.0); Mean Platelet Volume 7.6; Monocytes # (A) 0.3 k/uL (0-1.0); Monocytes % (A) 4 %; Neutrophils # (A) 8.3 k/uL (1.3-7.7); Neutrophils % (A) 90 %; Platelet Count 219 k/uL (150-450); RBC 4.58 m/uL (4.30-5.90); RDW 13.1 % (11.5-15.5); WBC 9.3 k/uL (3.8-10.6)
[2019-02-15 14:34] LABS: Hemoglobin A1C 6.5 % (4.0-6.0)
[2019-02-15 17:05] LABS: Glucose,Whole Blood 161 mg/dL (75-99)
[2019-02-15 20:49] LABS: Glucose,Whole Blood 175 mg/dL (75-99)
[2019-02-16] MEDS: METOCLOPRAMIDE 5 MG/ML 2 ML VIAL IVP SCH ×4 (00:34→18:56)
[2019-02-16] MEDS: KETOROLAC 30 MG/ML 1 ML VIAL IVP SCH ×4 (00:34→18:56)
[2019-02-16] MEDS: SODIUM CHLORIDE 0.9% 1,000 ML IV SCH ×2 (00:53→18:57)
[2019-02-16] MEDS: HYDROmorphone 0.5 MG/0.5 ML SYRINGE IVP PRN (03:14)
[2019-02-16 03:38] LABS: Glucose,Whole Blood 220 mg/dL (75-99)
--- NOTE | 2019-02-16 04:57 | CT ---
EXAM: CT Abdomen and Pelvis Without Intravenous Contrast CLINICAL HISTORY: ITS.REASON CT Reason: severe abdominal pain TECHNIQUE: Axial computed tomography images of the abdomen and pelvis without intravenous contrast. CTDI is 15 mGy and DLP is 922 mGy-cm. This CT exam was performed using one or more of the following dose reduction techniques: automated exposure control, adjustment of the mA and/or kV according to patient size, and/or use of iterative reconstruction technique. COMPARISON: CT abdomen 01/14/19 FINDINGS: Lung bases: Cardiomegaly with mild bilateral pleural effusions. Calcified granuloma in the left lower lobe. ABDOMEN: Liver: Unremarkable. Gallbladder and bile ducts: Unremarkable. Pancreas: No ductal dilation. Spleen: Unremarkable. Adrenals: Unremarkable. Kidneys and ureters: No obstructing stones. No hydronephrosis. Stomach and bowel: Colonic diverticulosis. Stomach is moderately distended. No bowel obstruction. Some prominent loops of small bowel are seen with no transition point. Colon is underdistended. PELVIS: Appendix: No evidence of appendicitis. Bladder: No stones. Reproductive: Enlarged. ABDOMEN and PELVIS: Intraperitoneal space: Mild ascites. Free air in the upper abdomen. Bones/joints: No acute fractures. Soft tissues: Soft tissue emphysema along the mid to left abdominal wall is likely postsurgical. No large hematoma or abscess.. Vasculature: No abdominal aortic aneurysm. Lymph nodes: No enlarged lymph nodes. IMPRESSION: 1. Postsurgical changes around the GE junction. 2. There is moderate distention of the stomach, and free air and free fluid within the abdomen, which is likely postsurgical. 3. The small bowel loops are somewhat prominent which may represent mild ileus. No definite obstruction. 4. Bladder is normally distended. 5. Prostatomegaly. Colonic diverticulosis. <MYCVCSECTION> Critical Value Communications 02/16/19 04:49 Call Doctor Regarding Above results, called Dr. Hunter on 02/16 04:49 (-04:00)
[2019-02-16] MEDS: LORazepam 2 MG/ML INJ IV PRN ×2 (05:29→14:20)
[2019-02-16 06:57] LABS: Glucose,Whole Blood 243 mg/dL (75-99)
[2019-02-16] MEDS: HYDROmorphone 1 MG/ML 1 ML SYRINGE IVP PRN (08:40)
[2019-02-16] MEDS: INSULIN ASPART (NovoLOG) 100 UNIT/ML VIAL SQ SCH ×4 (09:57→23:23)
[2019-02-16] MEDS: ACETAMINOPHEN TAB 325 MG TAB PO SCH ×2 (10:13→23:15)
[2019-02-16] MEDS: LISINOPRIL 20 MG TAB PO SCH (10:14)
[2019-02-16] MEDS: PANTOPRAZOLE 40 MG TABLET PO SCH (10:14)
[2019-02-16] MEDS: TAMSULOSIN 0.4 MG CAP.ER.24H PO SCH (10:14)
[2019-02-16] MEDS: SIMETHICONE 40 MG/0.6 ML DROPS 2,000 MG/30 ML BOTTLE PO SCH ×4 (10:14→23:22)
[2019-02-16] MEDS: HEPARIN SODIUM,PORCINE 5,000 UNIT/ML 1 ML VIAL SQ SCH ×2 (10:14→23:16)
--- NOTE | 2019-02-16 10:39 | P.PN ---
Subjective patient is status post left. It Manuel fundoplication patient is comparing of her continued severe abdominal patient patient's abdomen is distended probably because of constipation probably because of opiates and patient is receiving medications for constipation as well as pain with medications. Patient blood pressure is elevated because of her pain. I will these start him back on his lisinopril. 02/16/2019 patient is tachycardic patient abdomen is distended because of constipation grade halogenated repeat CAT scan which did not show any significant blood bowel blockage but does have significant air. Patient may benefit from medications for constipation. We'll obtain an EKG TSH. It appears to be sinus tachycardia clinically. and is in distress because of abdominal distention but able to walk around patient is hypoxic at 90% obtain a chest x-ray as well although clinically patient chest is clear Constitutional: Denied any fatigue denied any fever. Cardio vascular: denied any chest pain, palpitations Gastrointestinal as mentioned in HPI Pulmonary: Denied any shortness of breath cough Neurologic denied any new focal deficits All inpatient medications were reviewed and appropriate changes in these medications as dictated in the interval history and assessment and plan. Objective - Vital Signs Vital signs: Vital Signs Temp 97.8 F 02/16/19 08:41 Pulse 128 H 02/16/19 08:41 Resp 16 02/16/19 08:41 BP 132/82 02/16/19 08:41 Pulse Ox 96 02/16/19 08:41 Intake & Output 02/15/19 02/16/19 02/16/19 18:59 06:59 18:59 Intake Total 240 750 360 Output Total 375 200 Balance -135 550 360 Weight 72.575 kg Intake: Intake, IV Titration 750 Amount Sodium Chloride 0.9% 1, 750 000 ml @ 75 mls/hr IV . [id number] [facility] Rx#:[id number] Oral 240 360 Output: Urine 375 200 Other: Voiding Method Toilet Toilet # Voids 2 1 # Bowel Movements 1 - Exam PHYSICAL EXAMINATION: GENERAL: The patient is alert and oriented x3, not in any acute distress. Well developed, well nourished. HEENT: Pupils are round and equally reacting to light. EOMI. No scleral icterus. No conjunctival pallor. Normocephalic, atraumatic. No pharyngeal erythema. No thyromegaly. CARDIOVASCULAR: S1 and S2 present. No murmurs, rubs, or gallops. PULMONARY: Chest is clear to auscultation, no wheezing or crackles. ABDOMEN: minimal diffuse tenderness abdomen is distended tympanic sluggish bowel sounds. Surgical site area appears to be not infected and clean MUSCULOSKELETAL: No joint swelling or deformity. EXTREMITIES: No cyanosis, clubbing, or pedal edema. NEUROLOGICAL: Gross neurological examination did not reveal any focal deficits. SKIN: No rashes. - Labs CBC & Chem 7: 02/15/19 12:56 02/15/19 12:56 Labs: Abnormal Lab Results - Last 24 Hours (Table) 02/15/19 02/15/19 02/15/19 Range/Units 06:57 11:13 12:56 Neutrophils # 8.3 H (1.3-7.7) k/uL Lymphocytes # 0.5 L (1.0-4.8) k/uL Sodium (137-145) mmol/L BUN (9-20) mg/dL Glucose (74-99) mg/dL POC Glucose (mg/dL) 233 H (75-99) mg/dL Hemoglobin A1c 6.5 H (4.0-6.0) % 02/15/19 02/15/19 02/15/19 Range/Units 12:56 16:53 20:37 Neutrophils # (1.3-7.7) k/uL Lymphocytes # (1.0-4.8) k/uL Sodium 135 L (137-145) mmol/L BUN 22 H (9-20) mg/dL Glucose 216 H (74-99) mg/dL POC Glucose (mg/dL) 161 H 175 H (75-99) mg/dL Hemoglobin A1c (4.0-6.0) % 02/16/19 02/16/19 Range/Units 03:26 06:46 Neutrophils # (1.3-7.7) k/uL Lymphocytes # (1.0-4.8) k/uL Sodium (137-145) mmol/L BUN (9-20) mg/dL Glucose (74-99) mg/dL POC Glucose (mg/dL) 220 H 243 H (75-99) mg/dL Hemoglobin A1c (4.0-6.0) % Assessment and Plan Plan: Type 2 diabetes mellitus: Sliding scale insulin hold off metformin as mentioned above -tachycardia: Work up with EKG and a TSH probably related to abdominal distention and abdominal pain -Hypertension patient blood pressure is elevated because of pain and patientis on his lisinopril -Abdominal pain mostly secondary to constipation and opiate analgesia management as per primary service. -Gastroesophageal reflux disease for which patient underwent Manuel fundoplication on proton pump inhibitor
--- NOTE | 2019-02-16 11:03 | XR ---
EXAMINATION TYPE: XR chest 1V DATE OF EXAM: 02/16/2019 HISTORY: sob. REFERENCE: NONE. FINDINGS: The study projection is quite lordotic. There is atelectasis at both lung bases. The heart projects mildly enlarged. Pleural spaces are clear. IMPRESSION: 1. SUBOPTIMAL EXAM. 2. CARDIOMEGALY. 3. BIBASILAR ATELECTASIS
[2019-02-16 11:15] LABS: Glucose,Whole Blood 262 mg/dL (75-99)
[2019-02-16 12:36] LABS: HGB 15.7 gm/dL (13.0-17.5); MCH 31.8 pg (25.0-35.0); MCHC 33.4 g/dL (31.0-37.0); MCV 95.3 fL (80.0-100.0); Mean Platelet Volume 7.4; Platelet Count 215 k/uL (150-450); RBC 4.93 m/uL (4.30-5.90); RDW 14.5 % (11.5-15.5); WBC 5.3 k/uL (3.8-10.6)
[2019-02-16 12:39] LABS: Potassium 5.3 mmol/L (3.5-5.1)
--- NOTE | 2019-02-16 12:48 | P.PN ---
Subjective Progress Note Date: 02/16/19 CHIEF COMPLAINT: Gastroesophageal reflux disease HISTORY OF PRESENT ILLNESS: The patient is a 78-year-old male postop day 2 status post Manuel fundoplasty, 02/14/2019. He complains of moderate abdominal distention. He was placed on doses of Reglan including simethicone gas. Overnight he had elevated heart rate over 120 to 140s. Emergent computed tomography scan was obtained. Family is at bedside. He reports his abdomen is diffusely tender from distention. He has not passed flatus in the last 24 hrs. ROS: No bowel movements. No fevers or chills. No productive sputum PHYSICAL EXAM: VITAL SIGNS: Reviewed CONSTITUTIONAL: Well developed and in no acute distress. EYES: Conjuctivae without sclera icterus. Extraocular movements grossly intact. HEAD, EARS, NOSE, THROAT: Moist buccal mucosa. Head is atraumatic, normocephalic. Hears conversational speech. No nasal drainage. NECK: Supple. No thyroidomegaly. RESPIRATORY: Non-labored respirations and equal bilateral excursions. CARDIOVASCULAR: Palpable 2+ radial pulses. Tachycardic ABDOMEN: Incisions clean dry and intact. Moderate distension, tense. MUSCULOSKELETAL: No gross deformity of the lower extremities noted. No clubbin g. No cyanosis. SKIN: Good skin turgor. Well perfused. NEUROLOGIC: Cranial nerves I through XII grossly intact. No focal or lateralizing signs. PSYCH: Appropriate affect. Alert and oriented to person, place and time. CLINCAL LABS: Blood sugar is elevated over 200. Blood cell count normal at 9000 STUDIES: CT of the abdomen and pelvis independently reviewed by me demonstrates moderately distended stomach. Small bowel within normal limits. Evidence of diverticulosis. Bladder with without distention. Chest x-ray independently reviewed demonstrating moderately distended stomach including atelectasis. RADIOLOGY: Report was reviewed consistent with postsurgical changes on CT of the abdomen and pelvis. Chest x-ray confirms atelectasis suboptimal study. Additionally, I personally spoke to stat read radiologist regarding findings. ASSESSMENT: 1. Gastroesophageal reflux disease 2. Urinary retention 3. Diabetes type 2 4. Gas bloat 5. Gastric bloat with severe distention 6. Tachycardia PLAN: 1. Placement of nasogastric tube for moderate to severe gastric distention 2. Troponins including repeat labs for new tachycardia 3. All potassium sources discontinued for elevated potassium 4. Continue hospitalization Objective - Vital Signs Vital signs: Vital Signs Temp 97.8 F 02/16/19 08:41 Pulse 130 H 02/16/19 08:41 Resp 16 02/16/19 08:41 BP 132/82 02/16/19 08:41 Pulse Ox 96 02/16/19 08:41 Intake & Output 02/15/19 02/16/19 02/16/19 18:59 06:59 18:59 Intake Total 240 750 360 Output Total 375 200 Balance -135 550 360 Weight 72.575 kg Intake: Intake, IV Titration 750 Amount Sodium Chloride 0.9% 1, 750 000 ml @ 75 mls/hr IV . [id number] [facility] Rx#:[id number] Oral 240 360 Output: Urine 375 200 Other: Voiding Method Toilet Toilet # Voids 2 1 # Bowel Movements 1 - Labs CBC & Chem 7: 02/15/19 12:56 02/16/19 11:56 Labs: Abnormal Lab Results - Last 24 Hours (Table) 02/15/19 02/15/19 02/15/19 Range/Units 06:57 11:13 12:56 Neutrophils # 8.3 H (1.3-7.7) k/uL Lymphocytes # 0.5 L (1.0-4.8) k/uL Sodium (137-145) mmol/L BUN (9-20) mg/dL Glucose (74-99) mg/dL POC Glucose (mg/dL) 233 H (75-99) mg/dL Hemoglobin A1c 6.5 H (4.0-6.0) % 02/15/19 02/15/19 02/15/19 Range/Units 12:56 16:53 20:37 Neutrophils # (1.3-7.7) k/uL Lymphocytes # (1.0-4.8) k/uL Sodium 135 L (137-145) mmol/L BUN 22 H (9-20) mg/dL Glucose 216 H (74-99) mg/dL POC Glucose (mg/dL) 161 H 175 H (75-99) mg/dL Hemoglobin A1c (4.0-6.0) % 02/16/19 02/16/19 Range/Units 03:26 06:46 Neutrophils # (1.3-7.7) k/uL Lymphocytes # (1.0-4.8) k/uL Sodium (137-145) mmol/L BUN (9-20) mg/dL Glucose (74-99) mg/dL POC Glucose (mg/dL) 220 H 243 H (75-99) mg/dL Hemoglobin A1c (4.0-6.0) % Assessment and Plan (1) Hiatal hernia with gastroesophageal reflux Current Visit: Yes Status: Acute Code(s): K21.9 - GASTRO-ESOPHAGEAL REFLUX DISEASE WITHOUT ESOPHAGITIS; K44.9 - DIAPHRAGMATIC HERNIA WITHOUT OBSTRUCTION OR GANGRENE SNOMED Code(s): 530911762 (2) Diabetes type 2, uncontrolled Current Visit: Yes Status: Acute Code(s): E11.65 - TYPE 2 DIABETES MELLITUS WITH HYPERGLYCEMIA SNOMED Code(s): 487173126 (3) Urinary retention with incomplete bladder emptying Current Visit: Yes Status: Acute Code(s): R33.9 - RETENTION OF URINE, UNSPECIFIED SNOMED Code(s): 485600332 (4) Postoperative pain Current Visit: Yes Status: Acute Code(s): G89.18 - OTHER ACUTE POSTPROCEDURAL PAIN SNOMED Code(s): 776786984
[2019-02-16 13:16] LABS: Band Neutrophils % 19 %; Lymphocytes # (M) 0.37 k/uL (1.0-4.8); Metamyelocytes # (M) 0.11 k/uL (0); Metamyelocytes % 2 %; Monocytes # (M) 0.11 k/uL (0-1.0); Neutrophils % (M) 72 %; Nucleated Red Blood Cells 0 /100 WBC (0-0); Total Cells Counted 200
[2019-02-16 13:17] LABS: Toxic Granulation Present
--- NOTE | 2019-02-16 14:33 | XR ---
EXAMINATION TYPE: XR chest 1V portable DATE OF EXAM: 02/16/2019 CLINICAL HISTORY: NG tube placement. TECHNIQUE: Single AP portable upright view of the chest is obtained. COMPARISON: Chest x-ray and CT abdomen and pelvis from earlier today FINDINGS: Nasogastric tube projects towards right lung base presumed within right lower lobe bronchu s. Persistent low lung volumes with bibasilar opacities. Persistent cardiomegaly. Persistent gas dist ended stomach. Osseous structures are intact. IMPRESSION: New nasogastric tube is presumed within tracheobronchial system and needs to be replaced and reattempted. Ordering physician and patient are aware of this at time of dictation per x-ray technologist.
--- NOTE | 2019-02-16 16:03 | XR ---
EXAMINATION TYPE: XR abdomen 1V DATE OF EXAM: 02/16/2019 3:39 PM CLINICAL HISTORY: NG tube placement. TECHNIQUE: Single portable supine KUB image of the abdomen is obtained. COMPARISON: CT abdomen and pelvis earlier today FINDINGS: Nasogastric tube terminates just above the diaphragm likely within distal esophagus persist ent gaseous dilated stomach. Persistent prominent gas-filled small bowel loops throughout the visuali zed upper to mid abdomen. Contrast material seen in the right-sided colon. Pneumoperitoneum noted on CT less well seen on plain films. Some multilevel spurring the spine. IMPRESSION: Nasogastric tube terminates in the distal esophagus and needs to be advanced.
[2019-02-16 17:19] LABS: Glucose,Whole Blood 220 mg/dL (75-99)
[2019-02-16 21:18] LABS: Glucose,Whole Blood 156 mg/dL (75-99)
[2019-02-16 22:13] LABS: Glucose,Whole Blood 158 mg/dL (75-99)
[2019-02-16 22:23] LABS: HCT 43.8 % (39.0-53.0); HGB 14.8 gm/dL (13.0-17.5); MCH 31.4 pg (25.0-35.0); MCHC 33.7 g/dL (31.0-37.0); MCV 93.4 fL (80.0-100.0); Mean Platelet Volume 6.9; Platelet Count 232 k/uL (150-450); RBC 4.69 m/uL (4.30-5.90); WBC 8.3 k/uL (3.8-10.6)
[2019-02-16 22:38] LABS: Calcium 9.1 mg/dL (8.4-10.2); Potassium 4.4 mmol/L (3.5-5.1)
--- NOTE | 2019-02-16 23:16 | CT ---
EXAM: CT Head Without Intravenous Contrast CLINICAL HISTORY: ITS.REASON CT Reason: confusion TECHNIQUE: Axial computed tomography images of the head/brain without intravenous contrast. CTDI is 49 mGy and DLP is 1099 mGy-cm. This CT exam was performed using one or more of the following dose reduction techniques: automated exposure control, adjustment of the mA and/or kV according to patient size, and/or use of iterative reconstruction technique. COMPARISON: No relevant prior studies available. FINDINGS: Brain: No hemorrhage, large hypodensity, or mass effect. Chronic microvascular ischemic changes. Ventricles: No hydrocephalus. Age related cerebral volume loss. Bones/joints: Unremarkable. Soft tissues: Unremarkable. Sinuses: Unremarkable. Mastoid air cells: Clear. IMPRESSION: No acute hemorrhage, hydrocephalus, or mass effect.
[2019-02-16 23:21] LABS: Band Neutrophils % 17 %; Lymphocytes # (M) 0.66 k/uL (1.0-4.8); Monocytes # (M) 0.17 k/uL (0-1.0); Neutrophils % (M) 73 %; Nucleated Red Blood Cells 0 /100 WBC (0-0); Total Cells Counted 100
[2019-02-16] MEDS: IPRATROPIUM-ALBUTEROL 3 ML NEB INHALATION PRN (23:44)
[2019-02-17 00:05] LABS: Albumin 3.3 g/dL (3.5-5.0); Bilirubin, Delta 0.3 mg/dL (0.0-0.2); Total Bilirubin 1.3 mg/dL (0.2-1.3); Total Protein 5.9 g/dL (6.3-8.2)
[2019-02-17] MEDS: PIPERACILLIN-TAZOBACTAM 3.375 GM in SODIUM CHLORIDE 0.9% 100 ML IVPB SCH ×4 (00:34→23:42)
[2019-02-17] MEDS: KETOROLAC 30 MG/ML 1 ML VIAL IVP SCH (00:34)
[2019-02-17] MEDS: METOCLOPRAMIDE 5 MG/ML 2 ML VIAL IVP SCH ×5 (00:35→23:42)
[2019-02-17 01:28] LABS: Glucose,Whole Blood 170 mg/dL (75-99)
[2019-02-17] MEDS ORDERED: LABETALOL 5 MG/ML VIAL MDV IVP STA (01:28)
[2019-02-17 01:33] LABS: ABG HCO3 22 mmol/L (21-25); ABG Oxygen Saturation 97.1 % (94-97); ABG PCO2 30 mmHg (35-45); ABG PH 7.47 (7.35-7.45); ABG PO2 77 mmHg (83-108); ABG TCO2 23 mmol/L (19-24); Allen Test Performed? Yes
[2019-02-17] MEDS: HYDROmorphone 0.5 MG/0.5 ML SYRINGE IVP PRN (01:33)
--- NOTE | 2019-02-17 02:02 | XR ---
EXAM: XR Chest, 1 View CLINICAL HISTORY: ITS.REASON XR Reason: shortness of breath TECHNIQUE: Frontal view of the chest. COMPARISON: 02/16/19 IMPRESSION: Tube has been removed. Cardiomegaly. Trace bilateral pleural effusions and bibasilar atelectasis. The stomach bubble is again severely distended.
[2019-02-17 02:10] LABS: Lactic Acid, Venous 1.7 mmol/L (0.7-2.0)
[2019-02-17] MEDS ORDERED: FUROSEMIDE 10 MG/ML 2 ML VIAL IV ONE (02:50)
--- NOTE | 2019-02-17 02:59 | XR ---
EXAM: XR Chest, 1 View CLINICAL HISTORY: ITS.REASON XR Reason: s/p NG tube placement TECHNIQUE: Frontal view of the chest. COMPARISON: 02/16/19 IMPRESSION: NG tube tip terminates in the mid stomach.
[2019-02-17] MEDS ORDERED: NALOXONE 0.4 MG/ML 1 ML VIAL IV PRN (03:39)
[2019-02-17 04:58] LABS: HCT 42.4 % (39.0-53.0); HGB 14.2 gm/dL (13.0-17.5); MCH 31.4 pg (25.0-35.0); MCHC 33.4 g/dL (31.0-37.0); MCV 93.9 fL (80.0-100.0); Mean Platelet Volume 6.9; Platelet Count 227 k/uL (150-450); RBC 4.52 m/uL (4.30-5.90); RDW 14.5 % (11.5-15.5); WBC 7.3 k/uL (3.8-10.6)
[2019-02-17 05:09] LABS: Magnesium 1.7 mg/dL (1.6-2.3); Potassium 4.5 mmol/L (3.5-5.1)
[2019-02-17 05:25] LABS: Band Neutrophils % 13 %; Lymphocytes # (M) 0.29 k/uL (1.0-4.8); Monocytes # (M) 0.22 k/uL (0-1.0); Neutrophils % (M) 80 %; Nucleated Red Blood Cells 0 /100 WBC (0-0); Total Cells Counted 100
[2019-02-17 05:39] LABS: Amorphous Sediment,Urine Rare /hpf; Appearance,Urine Cloudy (Clear); Bilirubin,Urine Negative (Negative); Blood,Urine Small (Negative); Color,Urine Yellow; Glucose,Urine (UA) Negative (Negative); Granular Casts,Urine 31 /lpf (0); Ketones,Urine Negative (Negative); Leukocyte Esterase,Urine Negative (Negative); Mucus,Urine Occasional /hpf; Nitrite,Urine Negative (Negative); Protein,Urine Trace (Negative); RBC,Urine 4 /hpf (0-5); Specific Gravity,Urine 1.008 (1.001-1.035); Squamous Epithelial Cell,Urine <1 /hpf (0-4); Urobilinogen,Urine <2.0 mg/dL (<2.0)
[2019-02-17] MEDS: SODIUM CHLORIDE 0.9% 1,000 ML IV SCH ×2 (06:22→20:51)
[2019-02-17] MEDS: MAGNESIUM SULFATE-D5W PMX 1 GM in DEXTROSE/WATER 1 100ML.BAG IVPB SCH ×2 (06:22→08:57)
[2019-02-17 07:03] LABS: Glucose,Whole Blood 197 mg/dL (75-99)
[2019-02-17] MEDS: INSULIN ASPART (NovoLOG) 100 UNIT/ML VIAL SQ SCH ×4 (07:16→20:30)
[2019-02-17] MEDS: TAMSULOSIN 0.4 MG CAP.ER.24H PO SCH (08:44)
[2019-02-17] MEDS: ACETAMINOPHEN TAB 325 MG TAB PO SCH ×2 (08:44→20:33)
[2019-02-17] MEDS: PANTOPRAZOLE 40 MG/10 ML VIAL IVP SCH (08:57)
[2019-02-17] MEDS: HEPARIN SODIUM,PORCINE 5,000 UNIT/ML 1 ML VIAL SQ SCH ×2 (08:57→20:51)
[2019-02-17] MEDS: SIMETHICONE 40 MG/0.6 ML DROPS 2,000 MG/30 ML BOTTLE PO SCH ×4 (10:56→20:51)
[2019-02-17 11:50] LABS: Glucose,Whole Blood 157 mg/dL (75-99)
--- NOTE | 2019-02-17 12:34 | P.PN ---
Subjective Progress Note Date: 02/17/19 CHIEF COMPLAINT: GERD HISTORY OF PRESENT ILLNESS: 78-year-old male who is status post laparoscopic Manuel fundoplication performed on 02/14/2019. Postoperative day #3. Patient reported abdominal distention over the weekend. CT obtained revealed gastric distention. NG tube placed this morning. 700cc dark bilious drainage in cannister. Patient reports improvement in abdominal distention. He reports some abdominal discomfort. He remains tachycardic. PHYSICAL EXAM: VITAL SIGNS: Reviewed. GENERAL: Well-developed in no acute distress. HEENT: NG to LIS. No sclera icterus. Extraocular movements grossly intact. Moist buccal mucosa. Head is atraumatic, normocephalic. ABDOMEN: Distended. Tenderness with palpation. Laparoscopic surgical sites clean dry and intact without drainage or signs of infection. NEUROLOGIC: Alert and oriented. Cranial nerves II through XII grossly intact. ASSESSMENT: 1. GERD, S/P laparoscopic Manuel fundoplication 2. Acute gastric distention PLAN: 1. NPO except for ice chips, popsicles, and medications 2. Continue NG tube for today 3. Continue scheduled Reglan. Continue Simethicone. 4. Pain control 5. Pulmonary consulted overnight due to respiratory distress. Await input 6. Dr. Lawrence on consult for medical management Nurse practitioner note has been reviewed by physician. Signing provider agrees with the documented findings, assessment, and plan of care. Objective - Vital Signs Vital signs: Vital Signs Temp 98.2 F 02/17/19 12:00 Pulse 122 H 02/17/19 12:00 Resp 21 02/17/19 12:00 BP 137/64 02/17/19 12:00 Pulse Ox 92 L 02/17/19 12:00 Intake & Output 02/16/19 02/17/19 02/17/19 18:59 06:59 18:59 Intake Total 960 300 450 Output Total 1075 1365 Balance 970 -698 -085 Intake: IV 300 450 Magnesium Sulfate-D5w Pmx 200 1 gm In Dextrose/Water 1 100ml.bag @ 100 mls/hr IVPB Q1H [facility] Rx#: [id number] Piperacillin-Tazobactam 3 100 .375 gm In Sodium Chloride 0.9% 100 ml @ 25 mls/hr IVPB Q8HR [facility] Rx# :[id number] Sodium Chloride 0.9% 1, 300 150 000 ml @ 75 mls/hr IV . [id number] [facility] Rx#:[id number] Oral 960 Output: Gastric Drainage 400 800 Urine 675 565 Other: Voiding Method Indwelling Catheter Indwelling Catheter # Voids 1 # Bowel Movements 1 - Labs CBC & Chem 7: 02/17/19 04:32 02/17/19 04:32 Labs: Abnormal Lab Results - Last 24 Hours (Table) 02/16/19 02/16/19 02/16/19 Range/Units 11:56 11:56 17:07 Lymphocytes # (Manual) 0.37 L (1.0-4.8) k/uL Metamyelocytes # (Man) 0.11 H (0) k/uL D-Dimer (<0.60) mg/L FEU ABG pH (7.35-7.45) ABG pCO2 (35-45) mmHg ABG pO2 (83-108) mmHg ABG O2 Saturation (94-97) % Sodium 133 L (137-145) mmol/L Potassium 5.3 H (3.5-5.1) mmol/L Carbon Dioxide 21 L (22-30) mmol/L BUN 26 H (9-20) mg/dL Creatinine (0.66-1.25) mg/dL Glucose 249 H (74-99) mg/dL POC Glucose (mg/dL) 220 H (75-99) mg/dL Delta Bilirubin (0.0-0.2) mg/dL Total Protein (6.3-8.2) g/dL Albumin (3.5-5.0) g/dL Urine Protein (Negative) Urine Blood (Negative) Amorphous Sediment (None) /hpf Urine Mucus (None) /hpf 02/16/19 02/16/19 02/16/19 Range/Units 21:07 22:02 22:10 Lymphocytes # (Manual) 0.66 L (1.0-4.8) k/uL Metamyelocytes # (Man) (0) k/uL D-Dimer (<0.60) mg/L FEU ABG pH (7.35-7.45) ABG pCO2 (35-45) mmHg ABG pO2 (83-108) mmHg ABG O2 Saturation (94-97) % Sodium (137-145) mmol/L Potassium (3.5-5.1) mmol/L Carbon Dioxide (22-30) mmol/L BUN (9-20) mg/dL Creatinine (0.66-1.25) mg/dL Glucose (74-99) mg/dL POC Glucose (mg/dL) 156 H 158 H (75-99) mg/dL Delta Bilirubin (0.0-0.2) mg/dL Total Protein (6.3-8.2) g/dL Albumin (3.5-5.0) g/dL Urine Protein (Negative) Urine Blood (Negative) Amorphous Sediment (None) /hpf Urine Mucus (None) /hpf 02/16/19 02/16/19 02/17/19 Range/Units 22:10 22:10 01:26 Lymphocytes # (Manual) (1.0-4.8) k/uL Metamyelocytes # (Man) (0) k/uL D-Dimer (<0.60) mg/L FEU ABG pH (7.35-7.45) ABG pCO2 (35-45) mmHg ABG pO2 (83-108) mmHg ABG O2 Saturation (94-97) % Sodium 133 L (137-145) mmol/L Potassium (3.5-5.1) mmol/L Carbon Dioxide (22-30) mmol/L BUN 32 H (9-20) mg/dL Creatinine (0.66-1.25) mg/dL Glucose 164 H (74-99) mg/dL POC Glucose (mg/dL) 170 H (75-99) mg/dL Delta Bilirubin 0.3 H (0.0-0.2) mg/dL Total Protein 5.9 L (6.3-8.2) g/dL Albumin 3.3 L (3.5-5.0) g/dL Urine Protein (Negative) Urine Blood (Negative) Amorphous Sediment (None) /hpf Urine Mucus (None) /hpf 02/17/19 02/17/19 02/17/19 Range/Units 01:29 01:51 04:32 Lymphocytes # (Manual) 0.29 L (1.0-4.8) k/uL Metamyelocytes # (Man) (0) k/uL D-Dimer 5.35 H (<0.60) mg/L FEU ABG pH 7.47 H (7.35-7.45) ABG pCO2 30 L (35-45) mmHg ABG pO2 77 L (83-108) mmHg ABG O2 Saturation 97.1 H (94-97) % Sodium (137-145) mmol/L Potassium (3.5-5.1) mmol/L Carbon Dioxide (22-30) mmol/L BUN (9-20) mg/dL Creatinine (0.66-1.25) mg/dL Glucose (74-99) mg/dL POC Glucose (mg/dL) (75-99) mg/dL Delta Bilirubin (0.0-0.2) mg/dL Total Protein (6.3-8.2) g/dL Albumin (3.5-5.0) g/dL Urine Protein (Negative) Urine Blood (Negative) Amorphous Sediment (None) /hpf Urine Mucus (None) /hpf 02/17/19 02/17/19 02/17/19 Range/Units 04:32 05:25 07:01 Lymphocytes # (Manual) (1.0-4.8) k/uL Metamyelocytes # (Man) (0) k/uL D-Dimer (<0.60) mg/L FEU ABG pH (7.35-7.45) ABG pCO2 (35-45) mmHg ABG pO2 (83-108) mmHg ABG O2 Saturation (94-97) % Sodium 134 L (137-145) mmol/L Potassium (3.5-5.1) mmol/L Carbon Dioxide (22-30) mmol/L BUN 35 H (9-20) mg/dL Creatinine 1.28 H (0.66-1.25) mg/dL Glucose 187 H (74-99) mg/dL POC Glucose (mg/dL) 197 H (75-99) mg/dL Delta Bilirubin (0.0-0.2) mg/dL Total Protein (6.3-8.2) g/dL Albumin (3.5-5.0) g/dL Urine Protein Trace H (Negative) Urine Blood Small H (Negative) Amorphous Sediment Rare H (None) /hpf Urine Mucus Occasional H (None) /hpf 02/17/19 Range/Units 11:48 Lymphocytes # (Manual) (1.0-4.8) k/uL Metamyelocytes # (Man) (0) k/uL D-Dimer (<0.60) mg/L FEU ABG pH (7.35-7.45) ABG pCO2 (35-45) mmHg ABG pO2 (83-108) mmHg ABG O2 Saturation (94-97) % Sodium (137-145) mmol/L Potassium (3.5-5.1) mmol/L Carbon Dioxide (22-30) mmol/L BUN (9-20) mg/dL Creatinine (0.66-1.25) mg/dL Glucose (74-99) mg/dL POC Glucose (mg/dL) 157 H (75-99) mg/dL Delta Bilirubin (0.0-0.2) mg/dL Total Protein (6.3-8.2) g/dL Albumin (3.5-5.0) g/dL Urine Protein (Negative) Urine Blood (Negative) Amorphous Sediment (None) /hpf Urine Mucus (None) /hpf
[2019-02-17] MEDS ORDERED: SODIUM CHLORIDE 0.9% 1,000 ML IV ONE (14:26)
[2019-02-17] MEDS: HYDROmorphone 1 MG/ML 1 ML SYRINGE IVP PRN (14:52)
[2019-02-17] MEDS: IOPAMIDOL CONTRAST (ORAL USE) VIAL PO PRN ×2 (16:17→17:10)
[2019-02-17] MEDS: LABETALOL 5 MG/ML VIAL MDV IVP PRN (17:10)
[2019-02-17 17:22] LABS: Glucose,Whole Blood 151 mg/dL (75-99)
--- NOTE | 2019-02-17 17:41 | CONS ---
CONSULTATION DATE OF SERVICE: February 17, 2019 This is a pulmonary/critical care consultation. HISTORY: This is a 72-year-old male who was admitted on February 14. He went to the operating room on the for an elective laparoscopic Manuel fundoplication for severe gastroesophageal reflux disease. Anyway, postsurgery, he apparently developed some abdominal pain and distention. He developed gastroparesis and ileus. An NG tube was placed. The patient was admitted to the ICU on the . He apparently had some difficulty breathing because of the abdominal distention and bowel distention. That was relieved with the NG tube placement. He is postop day #3. He otherwise is doing well. He is currently on O2 at 4 L by nasal cannula and saline at 75 mL an hour. The surgery was done by Dr. Adams. NG tube in place. His belly is a bit tender. He has got some distention remaining. He is tender to touch. He is doing much better though and denies really any shortness of breath or chest pain or chest discomfort. No fever, no chills. No nausea, vomiting or diarrhea. Dr. Martines did a medical consultation on the patient. PAST MEDICAL HISTORY: Includes diabetes mellitus, severe acid reflux disease, hypertension, arthritis, and some skin issues. SURGICAL HISTORY: Includes colonoscopy, bilateral knee arthroscopy, EGD with dilatation and prostate surgery. SOCIAL HISTORY: Significant in that he is a lifelong nonsmoker. He drinks alcohol rarely. No illicit drug use. FAMILY HISTORY: Significant for mother who is healthy. OCCUPATIONAL HISTORY: Noncontributory. HOME MEDICATIONS: Include omeprazole, metformin, tramadol, Tylenol, and Zestril. ALLERGIES: Denied. REVIEW OF SYSTEMS: CONSTITUTIONAL: Negative. HEENT negative. CARDIOVASCULAR negative. PULMONARY: Shortness of breath, relieved with placement of an NG tube. GI: Abdominal distention and pain and discomfort. negative. RHEUMATOLOGIC negative. IMMUNOLOGIC negative. ENDOCRINOLOGIC negative. DERMATOLOGIC negative. PHYSICAL EXAMINATION: VITAL SIGNS: Current vital signs are stable. Temperature 97.9. Heart rate 105. Respiratory rate 21. Blood pressure 143/78, mean 99, saturations are 94% on 4 L. GENERAL: Appears in no acute distress. Breathing appears stable. No use of accessory muscles, audible wheezing or conversational dyspnea. HEENT examination is grossly unremarkable. Nasal O2 in place. NG tube in place. NECK: Supple. Full range of motion. No adenopathy. Neck veins are flat. CARDIOVASCULAR examination reveals mild tachycardia. Heart rate around 100. S1, S2 normal. No S3, S4, or murmur. LUNGS: Reveal mostly clear breath sounds. A few scattered rhonchi. No wheezes or crackles. ABDOMEN is mildly distended. Bowel sounds are noted. Tympanitic on percussion. Tender on palpation. EXTREMITIES are intact. No cyanosis, clubbing, or edema. SKIN: Without rash. NEUROLOGIC examination is brief but nonfocal. LABS: Reviewed. White count 7.3, hemoglobin 14.2, hematocrit 42.4, platelet count 327,000. D-dimer is 5.35. Blood gases show mild respiratory alkalosis. PO2 of 77, pCO2 of 30, pH 7.47. Sodium 134, potassium 4.5, chloride 100, CO2 23, anion gap is 11. BUN and creatinine is 35 and 1.28. Urine is noted. Chest x-rays are observed. It shows the NG tube in the stomach. The previous chest x- ray shows small bilateral pleural effusions and bibasilar atelectasis with severely distended stomach. Medications are reviewed. He is currently on Tylenol, Lasix, heparin subcu, Dilaudid, insulin, updrafts, and labetalol p.r.n., Ativan, Reglan, Narcan, Zofran, Protonix, Zosyn, Mylicon drops, and Flomax. His IV is 0.9 at 75 mL an hour. Microbiologic studies are thus far all negative. ASSESSMENT: 1. Postoperative day #3, status post elective laparoscopic Manuel fundoplication for severe acid reflux disease. 2. Postoperative gastroparesis and ileus, relieved with an NG tube. 3. Mild respiratory distress, improved, secondary to increasing intraabdominal pressure and upward movement of the diaphragm. 4. History of diabetes mellitus. 5. History of hypertension. 6. History of arthritis. 7. History of previous EGD with dilatation. PLAN: We will continue to follow. The patient's overall status is stable. Medications are reviewed. No additional recommendations are made. He is improved. Placement of the NG tube helped significantly. Medical management by Dr. Lawrence's group. Likely later today or tomorrow the patient could be transferred out of the ICU. MMODL / IJN: [id number] /
--- NOTE | 2019-02-17 18:44 | CT ---
EXAMINATION TYPE: CT abdomen pelvis wo con DATE OF EXAM: 02/17/2019 COMPARISON: Yesterday HISTORY: Abdominal pain CT DLP: 718.7 mGycm Automated exposure control for dose reduction was used. TECHNIQUE: Helical acquisition of images was performed from the lung bases through the pelvis. FINDINGS: There is oral contrast. There are mild to moderate bilateral pleural effusions. There is bilateral basilar pulmonary infiltra mel and atelectasis. There is a nasogastric tube. Tip of the tube is not well seen due to the contras t. Contrast is seen in the proximal small bowel which is somewhat dilated. Small bowel is dilated up to 3.7 cm. There is a mild pneumoperitoneum. There is contrast in the right colon. I do not see any of the contr ast in the distal small bowel. There is numerous diverticula in the sigmoid colon. I see no definite sign of diverticulitis. There is no adrenal mass. Kidneys show no hydronephrosis. There is 3 mm calculus upper pole right kid graciela. Ureters are not dilated. There is no sign of retroperitoneal adenopathy. Spleen is intact. There is no evidence of pancreatic mass. There is free fluid in the abdomen and in the cul-de-sac. There are spondylotic changes in the lumbar spine. I see no bony destructive process. IMPRESSION: There is mild to moderate pneumoperitoneum. There is mild abdominal ascites. There are dilated multiple loops of proximal small bowel suggestive of mechanical small bowel obstruc tion. Transition point not identified with certainty. Jejunal wall appears thickened on axial image 4 9 and 50 that could be point of obstruction. Free air is a change compared to old exam. This exam was discussed with the patient's nurse on the floor Kim at 6:40 PM. THERE ARE BILATERAL MODERATE PLEURAL EFFUSIONS AND BASILAR PULMONARY INFILTRATES.. PULMONARY AND ABDO CECELIA ACUTE ABNORMALITY IS NEW COMPARED TO OLD EXAM.
--- NOTE | 2019-02-17 20:17 | XR ---
EXAMINATION TYPE: XR chest 1V portable DATE OF EXAM: 02/17/2019 COMPARISON: Today HISTORY: Check tube placement TECHNIQUE: Single frontal view of the chest is obtained. FINDINGS: There is nasogastric tube with the tip over the body of the stomach. There is blunting of costophrenic angles. There is poor inspiration. Heart is enlarged. There is mild pulmonary congestion . There are chest leads. IMPRESSION: Mild congestive heart failure with basilar pleural effusions and atelectasis. No signifi cant change. NG tube appears in good position.
[2019-02-17 20:32] LABS: Glucose,Whole Blood 112 mg/dL (75-99)
[2019-02-18] MEDS ORDERED: DILTIAZEM DRIP BOLUS FROM BAG 1 MG SOLN IV ONE (00:48)
[2019-02-18] MEDS: DILTIAZEM 125 MG in SODIUM CHLORIDE 0.9% 100 ML IV SCH (01:15)
[2019-02-18 04:43] LABS: HCT 40.8 % (39.0-53.0); HGB 13.8 gm/dL (13.0-17.5); MCH 31.5 pg (25.0-35.0); MCHC 33.8 g/dL (31.0-37.0); Mean Platelet Volume 7.2; Platelet Count 259 k/uL (150-450); RBC 4.39 m/uL (4.30-5.90); RDW 14.3 % (11.5-15.5); WBC 10.8 k/uL (3.8-10.6)
[2019-02-18 04:51] LABS: Calcium 8.3 mg/dL (8.4-10.2); Potassium 4.1 mmol/L (3.5-5.1)
[2019-02-18] MEDS: METOCLOPRAMIDE 5 MG/ML 2 ML VIAL IVP SCH ×3 (05:00→17:32)
[2019-02-18 07:02] LABS: Glucose,Whole Blood 143 mg/dL (75-99)
[2019-02-18] MEDS: INSULIN ASPART (NovoLOG) 100 UNIT/ML VIAL SQ SCH ×4 (07:05→20:50)
[2019-02-18] MEDS: ACETAMINOPHEN TAB 325 MG TAB PO SCH ×2 (07:54→20:26)
[2019-02-18] MEDS: TAMSULOSIN 0.4 MG CAP.ER.24H PO SCH (07:54)
[2019-02-18] MEDS: PIPERACILLIN-TAZOBACTAM 3.375 GM in SODIUM CHLORIDE 0.9% 100 ML IVPB SCH ×2 (08:14→17:31)
[2019-02-18] MEDS: HEPARIN SODIUM,PORCINE 5,000 UNIT/ML 1 ML VIAL SQ SCH ×2 (08:14→20:44)
[2019-02-18] MEDS: PANTOPRAZOLE 40 MG/10 ML VIAL IVP SCH (08:14)
[2019-02-18] MEDS: SIMETHICONE 40 MG/0.6 ML DROPS 2,000 MG/30 ML BOTTLE PO SCH ×4 (08:14→20:44)
[2019-02-18] MEDS: SODIUM CHLORIDE 0.9% 1,000 ML IV SCH (08:15)
--- NOTE | 2019-02-18 08:17 | XR ---
EXAMINATION TYPE: XR chest 1V DATE OF EXAM: 02/18/2019 COMPARISON: Prior chest x-ray dated 02/17/2019 HISTORY: Shortness of breath TECHNIQUE: Single frontal view of the chest is obtained. FINDINGS: Patient is rotated. Orogastric tube is present, distal tip not included on the exam. There are overlying cardiac leads. Lung volumes are low. Patchy bibasilar increased density persists. Hear t size is stable and enlarged. No pneumothorax. IMPRESSION: Subsegmental basilar atelectatic changes and possible fusion, correlate to exclude pneum onia versus edema. Expiratory rotated exam.
[2019-02-18] MEDS ORDERED: SODIUM CHLORIDE 0.9% 1,500 ML IV ONE (08:38)
[2019-02-18] MEDS ORDERED: HALOPERIDOL LACTATE 5 MG/ML 1 ML VIAL IVP PRN (09:57)
[2019-02-18] MEDS: HALOPERIDOL LACTATE 5 MG/ML 1 ML VIAL IVP PRN ×2 (10:12→14:05)
--- NOTE | 2019-02-18 10:18 | PN ---
PROGRESS NOTE DATE OF SERVICE: 02/18/2019 This is a 78-year-old gentleman who we saw yesterday in consultation. He is postop day #4, status post elective laparoscopic Manuel fundoplication for severe acid reflux disease. Through the night, he had a number of issues including some postoperative delirium. We stopped any benzodiazepines. He is only getting narcotic for pain. In addition, he has an ongoing ileus with gastroparesis and also has developed atrial fibrillation with RVR. Yesterday, we put him on Cardizem drip after 7.5 mg bolus. He converted back into sinus rhythm, but this morning again he went back into atrial fibrillation. Cardiology will be consulted. He had a repeat CT scan of the abdomen yesterday. It showed similar findings with pneumoperitoneum and with ileus. Also, the lower lobes of his lungs demonstrate small effusions and bibasilar atelectasis. He does need fluids. He will get a 1.5 L normal saline fluid bolus. Currently, he is on O2 at 2 L. His IV is saline at 75 mL an hour. In addition, he has a history of diabetes, hypertension, arthritis, and previous EGD with dilatation. PHYSICAL EXAMINATION: VITAL SIGNS: Current vital signs include temperature 97.4, heart rate 99, respiratory rate 28, blood pressure 117/63, mean 81 and 2 L saturation 99%. GENERAL: Appears in no acute distress. HEENT: Examination is grossly unremarkable. Mucous membranes are moist. Nasal O2 noted. NECK: Supple. Full range of motion. No adenopathy or thyromegaly. Neck veins are flat. CARDIOVASCULAR: Examination reveals irregular rhythm and rate. S1, S2 normal. He is currently in atrial fibrillation. Heart rate about 100. LUNGS: Reveal mostly clear breath sounds. A few scattered rhonchi. No wheezes or crackles. ABDOMEN: Is distended. Bowel sounds are diminished. He is tympanitic on percussion. EXTREMITIES: Are intact. No cyanosis, clubbing, or edema. SKIN: Without rash. NEUROLOGIC: Examination is difficult to assess. He does move all 4 extremities. He is very confused. LAB DATA: Lab data reviewed. White count 10.8, hemoglobin 13.8, hematocrit 40.8, platelet count 259,000. Sodium 136, potassium 4.1, chloride 105, CO2 of 23. Anion gap is 8. BUN and creatinine were 31 and 1.10. Microbiologic data is negative. His chest x-ray from the shows some bibasilar atelectasis and small effusions. Medications are reviewed. ASSESSMENT: 1. Postoperative day #4, status post elective laparoscopic Manuel fundoplication for severe acid reflux disease. 2. Postoperative gastroparesis and ileus, partially relieved with an NG tube. 3. Mild respiratory distress, improved, secondary to increasing intraabdominal pressure and upward movement of the diaphragm. 4. New onset atrial fibrillation. 5. History of diabetes mellitus. 6. History of hypertension. 7. History of degenerative joint disease. 8. Prior history of EGD with dilatation. PLAN: The Cardizem drip was turned back on. Will have Cardiology see the patient. No additional recommendations are made. Overall prognosis remains guarded. We will continue to hold off on benzodiazepines as I think they will detrimental in this patient's case. We will use Dilaudid sparingly. We will continue with deep breathing, coughing, clearing of secretions and use of incentive spirometer. The CT scan of the abdomen and pelvis done yesterday does not show anything acute. Overall prognosis remains very guarded. MMODL / IJN: [id number] /
--- NOTE | 2019-02-18 11:04 | P.PN ---
Progress Note - Text Progress Note Date: 02/18/19 The patient's CAT scan was reviewed with Dr. Sauceda. The patient is noted to have contrast in the right colon. This is presumably from his upper GI esophagram. There is some thickening of the small bowel in the left upper quadrant consistent with an enteritis. There is no evidence of any perforation. There is no definite transition point. The patient is resting in bed. He appears to be slightly agitated. He has H fibrillation pulse ranging from 100-125. He has no significant abdominal pain. The patient will continue to be observed.
[2019-02-18] MEDS: ACETAMINOPHEN IV (For NPO) 1,000 MG in EMPTY BAG 1 BAG IVPB SCH ×2 (12:42→17:28)
[2019-02-18 12:46] LABS: Glucose,Whole Blood 128 mg/dL (75-99)
[2019-02-18 17:27] LABS: Glucose,Whole Blood 145 mg/dL (75-99)
[2019-02-18 20:39] LABS: Glucose,Whole Blood 126 mg/dL (75-99)
--- NOTE | 2019-02-18 20:41 | P.PN ---
Subjective Progress Note Date: 02/17/19 Principal diagnosis: Status post Manuel fundoplication patient is status post Manuel fundoplication 02/16/2019 patient is tachycardic patient abdomen is distended because of constipation grade halogenated repeat CAT scan which did not show any significant blood bowel blockage but does have significant air. Patient may benefit from medications for constipation. We'll obtain an EKG TSH. It appears to be sinus tachycardia clinically. and is in distress because of abdominal distention but able to walk around patient is hypoxic at 90% obtain a chest x-ray as well although clinically patient chest is clear. 02/17/2019 Patient is still tachycardic with heart rate in 90s. Patient is status post Manuel fundoplication on 02/14/2019. Patient is otherwise awake alert and oriented 3. Currently in the intensive care unit. Currently being continued on NG tube due ileus. Abdominal still distended. Constitutional: Denied any fatigue denied any fever. Cardio vascular: denied any chest pain, palpitations Gastrointestinal as mentioned in HPI Pulmonary: Denied any shortness of breath cough Neurologic denied any new focal deficits All inpatient medications were reviewed and appropriate changes in these medications as dictated in the interval history and assessment and plan. Objective - Vital Signs Vital signs: Vital Signs Temp 97.9 F 02/17/19 08:00 Pulse 105 H 02/17/19 09:00 Resp 21 02/17/19 09:00 BP 143/78 02/17/19 09:00 Pulse Ox 94 L 02/17/19 09:00 Intake & Output 02/16/19 02/17/19 02/17/19 18:59 06:59 18:59 Intake Total 960 300 250 Output Total 1075 325 Balance 960 -775 -75 Intake: IV 300 250 Magnesium Sulfate-D5w Pmx 100 1 gm In Dextrose/Water 1 100ml.bag @ 100 mls/hr IVPB Q1H [facility] Rx#: [id number] Sodium Chloride 0.9% 1, 300 150 000 ml @ 75 mls/hr IV . [id number] [facility] Rx#:[id number] Oral 960 Output: Gastric Drainage 400 Urine 675 325 Other: Voiding Method Indwelling Catheter Indwelling Catheter # Voids 1 # Bowel Movements 1 - Exam PHYSICAL EXAMINATION: GENERAL: The patient is alert and oriented x3, not in any acute distress. Well developed, well nourished. HEENT: Pupils are round and equally reacting to light. EOMI. No scleral icterus. No conjunctival pallor. Normocephalic, atraumatic. No pharyngeal erythema. No thyromegaly. CARDIOVASCULAR: S1 and S2 present. No murmurs, rubs, or gallops. PULMONARY: Chest is clear to auscultation, no wheezing or crackles. ABDOMEN: minimal diffuse tenderness abdomen is distended tympanic sluggish bowel sounds. Surgical site area appears to be not infected and clean MUSCULOSKELETAL: No joint swelling or deformity. EXTREMITIES: No cyanosis, clubbing, or pedal edema. NEUROLOGICAL: Gross neurological examination did not reveal any focal deficits. SKIN: No rashes. - Labs CBC & Chem 7: 02/18/19 04:23 02/18/19 04:23 Labs: Abnormal Lab Results - Last 24 Hours (Table) 02/16/19 02/16/19 02/16/19 Range/Units 11:03 11:56 11:56 Lymphocytes # (Manual) 0.37 L (1.0-4.8) k/uL Metamyelocytes # (Man) 0.11 H (0) k/uL D-Dimer (<0.60) mg/L FEU ABG pH (7.35-7.45) ABG pCO2 (35-45) mmHg ABG pO2 (83-108) mmHg ABG O2 Saturation (94-97) % Sodium 133 L (137-145) mmol/L Potassium 5.3 H (3.5-5.1) mmol/L Carbon Dioxide 21 L (22-30) mmol/L BUN 26 H (9-20) mg/dL Creatinine (0.66-1.25) mg/dL Glucose 249 H (74-99) mg/dL POC Glucose (mg/dL) 262 H (75-99) mg/dL Delta Bilirubin (0.0-0.2) mg/dL Total Protein (6.3-8.2) g/dL Albumin (3.5-5.0) g/dL Urine Protein (Negative) Urine Blood (Negative) Amorphous Sediment (None) /hpf Urine Mucus (None) /hpf 02/16/19 02/16/19 02/16/19 Range/Units 17:07 21:07 22:02 Lymphocytes # (Manual) (1.0-4.8) k/uL Metamyelocytes # (Man) (0) k/uL D-Dimer (<0.60) mg/L FEU ABG pH (7.35-7.45) ABG pCO2 (35-45) mmHg ABG pO2 (83-108) mmHg ABG O2 Saturation (94-97) % Sodium (137-145) mmol/L Potassium (3.5-5.1) mmol/L Carbon Dioxide (22-30) mmol/L BUN (9-20) mg/dL Creatinine (0.66-1.25) mg/dL Glucose (74-99) mg/dL POC Glucose (mg/dL) 220 H 156 H 158 H (75-99) mg/dL Delta Bilirubin (0.0-0.2) mg/dL Total Protein (6.3-8.2) g/dL Albumin (3.5-5.0) g/dL Urine Protein (Negative) Urine Blood (Negative) Amorphous Sediment (None) /hpf Urine Mucus (None) /hpf 02/16/19 02/16/19 02/16/19 Range/Units 22:10 22:10 22:10 Lymphocytes # (Manual) 0.66 L (1.0-4.8) k/uL Metamyelocytes # (Man) (0) k/uL D-Dimer (<0.60) mg/L FEU ABG pH (7.35-7.45) ABG pCO2 (35-45) mmHg ABG pO2 (83-108) mmHg ABG O2 Saturation (94-97) % Sodium 133 L (137-145) mmol/L Potassium (3.5-5.1) mmol/L Carbon Dioxide (22-30) mmol/L BUN 32 H (9-20) mg/dL Creatinine (0.66-1.25) mg/dL Glucose 164 H (74-99) mg/dL POC Glucose (mg/dL) (75-99) mg/dL Delta Bilirubin 0.3 H (0.0-0.2) mg/dL Total Protein 5.9 L (6.3-8.2) g/dL Albumin 3.3 L (3.5-5.0) g/dL Urine Protein (Negative) Urine Blood (Negative) Amorphous Sediment (None) /hpf Urine Mucus (None) /hpf 02/17/19 02/17/19 02/17/19 Range/Units 01:26 01:29 01:51 Lymphocytes # (Manual) (1.0-4.8) k/uL Metamyelocytes # (Man) (0) k/uL D-Dimer 5.35 H (<0.60) mg/L FEU ABG pH 7.47 H (7.35-7.45) ABG pCO2 30 L (35-45) mmHg ABG pO2 77 L (83-108) mmHg ABG O2 Saturation 97.1 H (94-97) % Sodium (137-145) mmol/L Potassium (3.5-5.1) mmol/L Carbon Dioxide (22-30) mmol/L BUN (9-20) mg/dL Creatinine (0.66-1.25) mg/dL Glucose (74-99) mg/dL POC Glucose (mg/dL) 170 H (75-99) mg/dL Delta Bilirubin (0.0-0.2) mg/dL Total Protein (6.3-8.2) g/dL Albumin (3.5-5.0) g/dL Urine Protein (Negative) Urine Blood (Negative) Amorphous Sediment (None) /hpf Urine Mucus (None) /hpf 02/17/19 02/17/19 02/17/19 Range/Units 04:32 04:32 05:25 Lymphocytes # (Manual) 0.29 L (1.0-4.8) k/uL Metamyelocytes # (Man) (0) k/uL D-Dimer (<0.60) mg/L FEU ABG pH (7.35-7.45) ABG pCO2 (35-45) mmHg ABG pO2 (83-108) mmHg ABG O2 Saturation (94-97) % Sodium 134 L (137-145) mmol/L Potassium (3.5-5.1) mmol/L Carbon Dioxide (22-30) mmol/L BUN 35 H (9-20) mg/dL Creatinine 1.28 H (0.66-1.25) mg/dL Glucose 187 H (74-99) mg/dL POC Glucose (mg/dL) (75-99) mg/dL Delta Bilirubin (0.0-0.2) mg/dL Total Protein (6.3-8.2) g/dL Albumin (3.5-5.0) g/dL Urine Protein Trace H (Negative) Urine Blood Small H (Negative) Amorphous Sediment Rare H (None) /hpf Urine Mucus Occasional H (None) /hpf 02/17/19 Range/Units 07:01 Lymphocytes # (Manual) (1.0-4.8) k/uL Metamyelocytes # (Man) (0) k/uL D-Dimer (<0.60) mg/L FEU ABG pH (7.35-7.45) ABG pCO2 (35-45) mmHg ABG pO2 (83-108) mmHg ABG O2 Saturation (94-97) % Sodium (137-145) mmol/L Potassium (3.5-5.1) mmol/L Carbon Dioxide (22-30) mmol/L BUN (9-20) mg/dL Creatinine (0.66-1.25) mg/dL Glucose (74-99) mg/dL POC Glucose (mg/dL) 197 H (75-99) mg/dL Delta Bilirubin (0.0-0.2) mg/dL Total Protein (6.3-8.2) g/dL Albumin (3.5-5.0) g/dL Urine Protein (Negative) Urine Blood (Negative) Amorphous Sediment (None) /hpf Urine Mucus (None) /hpf Assessment and Plan Assessment: Type 2 diabetes mellitus: Sliding scale insulin hold off metformin as mentioned above -Sinus tachycardia: probably related to abdominal distention and abdominal pain and TSH within normal limits. -Hypertension patient blood pressure is elevated because of pain and patientis on his lisinopril -Abdominal pain mostly secondary to constipation and opiate analgesia management as per primary service. -Gastroesophageal reflux disease for which patient underwent Manuel fundoplication on proton pump inhibitor Time with Patient: Greater than 30
--- NOTE | 2019-02-18 20:49 | P.PN ---
Subjective Progress Note Date: 02/18/19 Principal diagnosis: Status post Manuel fundoplication patient is status post Manuel fundoplication 02/16/2019 patient is tachycardic patient abdomen is distended because of constipation grade halogenated repeat CAT scan which did not show any significant blood bowel blockage but does have significant air. Patient may benefit from medications for constipation. We'll obtain an EKG TSH. It appears to be sinus tachycardia clinically. and is in distress because of abdominal distention but able to walk around patient is hypoxic at 90% obtain a chest x-ray as well although clinically patient chest is clear. 02/17/2019 Patient is still tachycardic with heart rate in 90s. Patient is status post Manuel fundoplication on 02/14/2019. Patient is otherwise awake alert and oriented 3. Currently in the intensive care unit. Currently being continued on NG tube due ileus. Abdominal still distended. 02/18/2019 Patient seems to be confused today. Patient went into atrial fibrillation with RVR and was started on Cardizem drip. Repeat CT abdomen and pelvis showed bilateral moderate pleural effusion and bibasilar pulmonary infiltrates. New compared to previous exam. Patient was started on antibiotics no cough Zosyn. Otherwise patient's abdominal still distended. Patient is being continued on NG tube for decompression. Patient has been afebrile. WBC count slightly elevated to 10.8. No bowel movement or passing of flatus at this time. All inpatient medications were reviewed and appropriate changes in these medications as dictated in the interval history and assessment and plan. Objective - Vital Signs Vital signs: Vital Signs Temp 97.4 F L 02/18/19 20:00 Pulse 90 02/18/19 20:00 Resp 34 H 02/18/19 20:00 BP 133/94 02/18/19 20:00 Pulse Ox 98 02/18/19 20:00 Intake & Output 02/18/19 02/18/19 02/19/19 06:59 18:59 06:59 Intake Total 3794.495 3667.75 250 Output Total 1408 770 510 Balance -271.580 0983.75 -260 Weight 76.6 kg 76.6 kg Intake: IV 1000 2925 250 Piperacillin-Tazobactam 3 100 200 .375 gm In Sodium Chloride 0.9% 100 ml @ 25 mls/hr IVPB Q8HR [facility] Rx# :[id number] Sodium Chloride 0.9% 1, 900 1225 250 000 ml @ 125 mls/hr IV . Q8H [facility] Rx#:[id number] Sodium Chloride 0.9% 1, 1500 500 ml @ 999 mls/hr IV . Q1H31M [facility] Rx#:[id number] Intake, IV Titration 44.334 62.75 Amount Diltiazem 125 mg In 44.334 62.75 Sodium Chloride 0.9% 100 ml @ Per Protocol IV .Q0M [facility] Rx#:[id number] Output: Gastric Drainage 700 150 400 Urine 708 620 110 Other: Voiding Method Indwelling Catheter Indwelling Catheter - Exam PHYSICAL EXAMINATION: GENERAL: The patient is alert and oriented x1, confused. not in any acute distress. Well developed, well nourished. HEENT: Pupils are round and equally reacting to light. EOMI. No scleral icterus. No conjunctival pallor. Normocephalic, atraumatic. No pharyngeal erythema. No thyromegaly. CARDIOVASCULAR: S1 and S2 present. No murmurs, rubs, or gallops. PULMONARY: Chest is clear to auscultation, no wheezing or crackles. ABDOMEN: minimal diffuse tenderness abdomen is distended tympanic sluggish bowel sounds. Surgical site area appears to be not infected and clean MUSCULOSKELETAL: No joint swelling or deformity. EXTREMITIES: No cyanosis, clubbing, or pedal edema. NEUROLOGICAL: Gross neurological examination did not reveal any focal deficits. SKIN: No rashes. - Labs CBC & Chem 7: 02/18/19 04:23 02/18/19 04:23 Labs: Abnormal Lab Results - Last 24 Hours (Table) 02/18/19 02/18/19 02/18/19 Range/Units 04:23 04:23 06:50 WBC 10.8 H (3.8-10.6) k/uL Sodium 136 L (137-145) mmol/L BUN 31 H (9-20) mg/dL Glucose 148 H (74-99) mg/dL POC Glucose (mg/dL) 143 H (75-99) mg/dL Calcium 8.3 L (8.4-10.2) mg/dL 02/18/19 02/18/19 02/18/19 Range/Units 12:25 17:16 20:28 WBC (3.8-10.6) k/uL Sodium (137-145) mmol/L BUN (9-20) mg/dL Glucose (74-99) mg/dL POC Glucose (mg/dL) 128 H 145 H 126 H (75-99) mg/dL Calcium (8.4-10.2) mg/dL Assessment and Plan Assessment: - Status post Manuel fundoplication postoperative day 4 due to severe gastroesophageal reflux disease. - New onset atrial fibrillation with RVR. Currently on Cardizem drip. Cardiology was consulted. - Postoperative ileus. Currently on NG tube. CT abdomen and pelvis showed no evidence of obstruction. - Bilateral moderate pleural effusion and possible basilar infiltrate. - Type 2 diabetes mellitus: Sliding scale insulin hold off metformin as mentioned above -Hypertension patient blood pressure is elevated because of pain and patientis on his lisinopril -Abdominal pain mostly secondary to constipation and opiate analgesia management as per primary service. -Gastroesophageal reflux disease for which patient underwent Manuel fundoplicati on on proton pump inhibitor - DVT prophylaxis with heparin subcu Time with Patient: Greater than 30
[2019-02-19] MEDS: PIPERACILLIN-TAZOBACTAM 3.375 GM in SODIUM CHLORIDE 0.9% 100 ML IVPB SCH ×3 (00:39→15:54)
[2019-02-19] MEDS: METOCLOPRAMIDE 5 MG/ML 2 ML VIAL IVP SCH ×4 (00:39→17:38)
[2019-02-19] MEDS: ACETAMINOPHEN IV (For NPO) 1,000 MG in EMPTY BAG 1 BAG IVPB SCH ×2 (00:39→06:58)
[2019-02-19] MEDS: HYDROmorphone 1 MG/ML 1 ML SYRINGE IVP PRN ×4 (00:52→23:13)
[2019-02-19] MEDS: SODIUM CHLORIDE 0.9% 1,000 ML IV SCH ×4 (01:06→20:19)
[2019-02-19] MEDS: LABETALOL 5 MG/ML VIAL MDV IVP PRN ×3 (03:07→19:15)
[2019-02-19 04:59] LABS: Basophils % (A) 0 %; Eosinophils # (A) 0.2 k/uL (0-0.7); Eosinophils % (A) 1 %; HCT 37.8 % (39.0-53.0); HGB 12.5 gm/dL (13.0-17.5); Lymphocytes # (A) 0.3 k/uL (1.0-4.8); Lymphocytes % (A) 2 %; MCH 31.4 pg (25.0-35.0); MCHC 33.1 g/dL (31.0-37.0); MCV 94.8 fL (80.0-100.0); Mean Platelet Volume 6.8; Monocytes # (A) 0.4 k/uL (0-1.0); Monocytes % (A) 3 %; Neutrophils # (A) 12.6 k/uL (1.3-7.7); Neutrophils % (A) 93 %; Platelet Count 259 k/uL (150-450); RBC 3.99 m/uL (4.30-5.90); RDW 13.2 % (11.5-15.5); WBC 13.5 k/uL (3.8-10.6)
[2019-02-19 05:19] LABS: ALT 16 U/L (21-72); AST 20 U/L (17-59); African American GFR (CKD) >90 (>60 ml/min/1.73 sqM); Albumin 2.4 g/dL (3.5-5.0); Alkaline Phosphatase 48 U/L (38-126); Anion Gap 11 mmol/L; Blood Urea Nitrogen 30 mg/dL (9-20); Carbon Dioxide 20 mmol/L (22-30); Chloride 111 mmol/L (98-107); Glucose 135 mg/dL (74-99); Potassium 3.6 mmol/L (3.5-5.1); Sodium 142 mmol/L (137-145); Total Bilirubin 0.9 mg/dL (0.2-1.3); Total Protein 4.7 g/dL (6.3-8.2)
[2019-02-19] MEDS: HYDROmorphone 0.5 MG/0.5 ML SYRINGE IVP PRN (06:03)
[2019-02-19] MEDS: INSULIN ASPART (NovoLOG) 100 UNIT/ML VIAL SQ SCH ×3 (07:05→17:38)
[2019-02-19 07:12] LABS: Glucose,Whole Blood 127 mg/dL (75-99)
[2019-02-19] MEDS: TAMSULOSIN 0.4 MG CAP.ER.24H PO SCH (07:53)
[2019-02-19] MEDS: ACETAMINOPHEN TAB 325 MG TAB PO SCH ×2 (07:53→20:05)
[2019-02-19] MEDS: HEPARIN SODIUM,PORCINE 5,000 UNIT/ML 1 ML VIAL SQ SCH ×2 (08:01→20:17)
[2019-02-19] MEDS: PANTOPRAZOLE 40 MG/10 ML VIAL IVP SCH (08:02)
[2019-02-19] MEDS: SIMETHICONE 40 MG/0.6 ML DROPS 2,000 MG/30 ML BOTTLE PO SCH ×4 (08:02→20:17)
--- NOTE | 2019-02-19 08:14 | XR ---
EXAMINATION TYPE: XR chest 1V portable DATE OF EXAM: 02/19/2019 COMPARISON: Prior chest x-ray 02/18/2019 HISTORY: Shortness of breath TECHNIQUE: Single frontal view of the chest is obtained. FINDINGS: Orogastric tube is present, distal tip not included on the exam. Bibasilar increased densi ty persists. No evident pneumothorax. Heart size stable. IMPRESSION: There is not a significant change. Suspect persistent airspace disease, atelectasis, pos sible effusion
--- NOTE | 2019-02-19 09:06 | CDI ---
Documentation Clarification Form Date: 02/19/2019 8:59:19 AM From: Radha Simmons RN, CCDS Admit Date: 02/16/2019 9:23:00 AM Patient Name: Calvin Davies Visit Number: [id number] Discharge Date: ATTENTION: The Clinical Documentation Specialists (CDI) and [facility] Coding Staff appreciate your assistance in clarifying documentation. Please respond to the clarification below the line at the bottom and electronically sign. The CDI & [facility] Coding staff will review the response and follow-up if needed. Please note: Queries are made part of the Legal Health Record. If you have any questions, please contact the author of this message via ITS. Dr. Karan Adams Patients Admitting Diagnosis: GERD Post-Operative Diagnosis: Same Procedure performed: Laparoscopic Manuel fundoplication The patient presented for elective procedure for history of GERD and had a Laparoscopic Manuel fundoplication on 02/14/19. 02/05/19 Dr. Sanchez ([facility]) has documented urinary retention and further clarification is needed. History/Risk Factors: GERD, Diabetes Mellitus, Hypertension Clinical Indicators: 78-year-old male who is postop day 1 status post Manuel fundoplasty. He has troubles urinating. He is not passing flatus and complains of abdominal suprapubic pain. Moderate incisional pain. Post void residual: 02/15/19: 200 mls 02/17/19 Indwelling Peter cath inserted (patient was transferred to ICU for additional monitoring). Treatment: Monitor I/O Flomax PO In order to accurately reflect this patients severity of illness, please clarify if the post-operative diagnosis of urinary retention is: An expected post-procedural or post-surgical condition An unexpected post-procedural or post-surgical condition related to surgical care (a complication of care) An unexpected post-procedural or post-surgical condition, related to the patients underlying medical comorbidities Other, please specify ____ Unable to determine (Last Revision: September 2018) Unable to determine MTDD
--- NOTE | 2019-02-19 09:35 | CDI ---
Documentation Clarification Form Date: 02/19/2019 9:07:08 AM From: Radha Simmons RN, CCDS Admit Date: 02/16/2019 9:23:00 AM Patient Name: Calvin Davies Visit Number: [id number] Discharge Date: ATTENTION: The Clinical Documentation Specialists (CDI) and [facility] Coding Staff appreciate your assistance in clarifying documentation. Please respond to the clarification below the line at the bottom and electronically sign. The CDI & [facility] Coding staff will review the response and follow-up if needed. Please note: Queries are made part of the Legal Health Record. If you have any questions, please contact the author of this message via ITS. Dr. Karan Adams Abdominal pain and distention is documented in the ongoing progress notes and additional clarification is needed. Patients Admitting Diagnosis: GERD Post-Operative Diagnosis: GERD Procedure performed: Laparoscopic Manuel fundoplication History/Risk Factors: GERD, Diabetes Mellitus, Hypertension Clinical Indicators: 78-year-old who present for elective Manuel fundoplication. Postop day 1 he is complains of lower abdominal, suprapubic pain. He has gas bloating and not passing flatus. 02/17/19: CT abdomen: Mild to moderate pneumoperitoneum. There is mild abdominal ascites. There are dilated multiple loops of proximal small bowel suggestive of mechanical small bowel obstruction. Transition point not identified with certainty. Jejunal wall appears thickened, 02/17 Pulmonary (Dr. Larose) Postoperative gastroparesis and ileus, partially relieved with NG tube. Treatment: NPO, NGT LIS Reglan IV Q6 Protonix IVP PRN Toradol IV PRN IV Fluid Pain control (Dilaudid IVP) In order to accurately reflect this patients severity of illness, please clarify if the post-operative diagnosis, if you treating an Ileus or small bowel obstruction and is: An expected post-procedural or post-surgical condition (specify) An unexpected post-procedural or post-surgical condition related to surgical care (a complication of care) An unexpected post-procedural or post-surgical condition, related to the patients underlying medical comorbidities Other, please specify ____ Unable to determine Unexpected postprocedural condition MTDD
[2019-02-19 11:47] LABS: Glucose,Whole Blood 126 mg/dL (75-99)
--- NOTE | 2019-02-19 11:49 | PN ---
PROGRESS NOTE DATE OF SERVICE: February 19, 2019 This is a 78-year-old gentleman who is postop day #5 status post elective laparoscopic Manuel fundoplication for severe gastroesophageal reflux disease. Currently and clinically, the patient seems to be doing better. His O2 is at 2 L but it could probably be discontinued as the saturations on room air 98%. He is getting saline at 125 mL an hour and Cardizem drip at 2.5 mg an hour. That could likely be discontinued as well. He has gotten pain medication in the form of narcotics twice in the last 24 hours. His issue has been gastroparesis and ileus. His abdomen is still somewhat distended and tympanitic on percussion. The patient will be seen by Surgery later today. Repeat CT scan done a couple days ago did not show anything new. He otherwise is doing relatively well. He did receive some Haldol yesterday for delirium. He is much more awake and alert today. Denies any significant pain or distress. No respiratory issues. No cough, wheezing, or phlegm production. No chest pain or chest discomfort. PHYSICAL EXAMINATION: VITAL SIGNS: Current vital signs are reviewed. They include a temperature 99.3, heart rate 90, respiratory rate 22, blood pressure 151/77, mean 101, and saturations are 98% on room air. GENERAL: Appears in no acute distress. HEENT: Examination is grossly unremarkable. Mucous membranes are moist. No oral lesions. NECK: Supple. Full range of motion. No adenopathy, thyromegaly or neck vein distention. CARDIOVASCULAR: Examination reveals regular rhythm and rate. Heart rate about 90 beats per minute. S1, S2 normal. He is in sinus rhythm. LUNGS: Reveal a few scattered rhonchi. No wheezes or crackles. Breath sounds equal. ABDOMEN: Mildly distended. It is tympanitic on percussion. No bowel sounds are noted. EXTREMITIES: Are intact. No cyanosis, clubbing, or edema. SKIN: Without rash. NEUROLOGIC: Examination is brief but nonfocal. LABS: Labs are reviewed. White count 13.5, hemoglobin 12.5, hematocrit 37.8, platelet count 259,000. Sodium, potassium normal. Chloride is 111. CO2 is 2. Anion gap is 11. BUN and creatinine were 30 and 0.88. Albumin 2.4. Microbiology is pending or negative. Chest x-ray done on February 19 shows no significant change. There was some bibasilar airspace disease. No pneumothorax. There was also some bibasilar atelectasis and a small effusion bilaterally. MEDICATIONS: Medications are reviewed. ASSESSMENT: 1. Postoperative day #5, status post elective laparoscopic Manuel fundoplication for severe acid reflux disease. 2. Postoperative gastroparesis and ileus, partially relieved the an NG tube. 3. Mild respiratory distress, improved, secondary to increasing intraabdominal pressure and upward movement of the diaphragm. 4. New onset atrial fibrillation, responsive to Cardizem. 5. History of diabetes mellitus. 6. Hypertension by history. 7. Degenerative joint disease. 8. History of EGD with dilatation. PLAN: Overall, I think the patient is doing a bit better. His abdomen is still somewhat distended. It is somewhat tympanitic on percussion. We will await and see what surgery has to say. I know Dr. Adams mentioned the possibility of repeating a CT scan. We will continue to follow. Prognosis is guarded. No additional recommendations are made. MMODL / IJN: [id number] /
[2019-02-19] MEDS ORDERED: BISACODYL 10 MG SUPP RECTAL STA ×2 (15:43→15:46)
--- NOTE | 2019-02-19 15:47 | P.PN ---
Subjective Progress Note Date: 02/19/19 CHIEF COMPLAINT: GERD HISTORY OF PRESENT ILLNESS: 78-year-old male who is status post laparoscopic Manuel fundoplication performed on 02/14/2019. POD #5. NG remains to LIS. Bilious drainage. Reports mild abdominal pain. Tolerating ice chips. He believes he may have started passing some flatus today. PHYSICAL EXAM: VITAL SIGNS: Reviewed. GENERAL: Well-developed in no acute distress. HEENT: NG to LIS. No sclera icterus. Extraocular movements grossly intact. Moist buccal mucosa. Head is atraumatic, normocephalic. ABDOMEN: Distended. Tenderness with palpation. Laparoscopic surgical sites clean dry and intact without drainage or signs of infection. NEUROLOGIC: Alert and oriented. Cranial nerves II through XII grossly intact. ASSESSMENT: 1. GERD, S/P laparoscopic Manuel fundoplication 2. Acute gastric distention 3. Small bowel obstruction secondary to ileus, an unexpected outcome of surgery 4. Urinary retention, an unexpected outcome of surgery PLAN: 1. NPO except for ice chips, popsicles, and medications 2. Continue NG tube 3. Continue scheduled Reglan. Continue Simethicone. 4. Dulcolax suppository 1 5. Begin PPN 6. If patient is passing more flatus tomorrow, will plan to DC NG and begin clear liquid diet 7. Increase activity as tolerated Nurse practitioner note has been reviewed by physician. Signing provider agrees with the documented findings, assessment, and plan of care. Objective - Vital Signs Vital signs: Vital Signs Temp 97.9 F 02/19/19 12:00 Pulse 89 02/19/19 14:00 Resp 26 H 02/19/19 14:00 BP 130/77 02/19/19 14:00 Pulse Ox 100 02/19/19 14:00 Intake & Output 02/18/19 02/19/19 02/19/19 18:59 06:59 18:59 Intake Total 2987.75 1500 992.916 Output Total 770 1105 895 Balance 2217.75 395 97.916 Weight 76.6 kg 79.2 kg 79.2 kg Intake: IV 2925 1500 975 Piperacillin-Tazobactam 3 200 100 .375 gm In Sodium Chloride 0.9% 100 ml @ 25 mls/hr IVPB Q8HR [facility] Rx# :[id number] Sodium Chloride 0.9% 1, 1225 1500 875 000 ml @ 125 mls/hr IV . Q8H [facility] Rx#:[id number] Sodium Chloride 0.9% 1, 1500 500 ml @ 999 mls/hr IV . Q1H31M [facility] Rx#:[id number] Intake, IV Titration 62.75 17.916 Amount Diltiazem 125 mg In 62.75 17.916 Sodium Chloride 0.9% 100 ml @ Per Protocol IV .Q0M [facility] Rx#:[id number] Output: Gastric Drainage 150 400 500 Urine 620 705 395 Other: Voiding Method Indwelling Catheter Indwelling Catheter Indwelling Catheter - Labs CBC & Chem 7: 02/19/19 04:42 02/19/19 04:43 Labs: Abnormal Lab Results - Last 24 Hours (Table) 02/18/19 02/18/19 02/19/19 Range/Units 17:16 20:28 04:42 WBC 13.5 H (3.8-10.6) k/uL RBC 3.99 L (4.30-5.90) m/uL Hgb 12.5 L (13.0-17.5) gm/dL Hct 37.8 L (39.0-53.0) % Neutrophils # 12.6 H (1.3-7.7) k/uL Lymphocytes # 0.3 L (1.0-4.8) k/uL Chloride (98-107) mmol/L Carbon Dioxide (22-30) mmol/L BUN (9-20) mg/dL Glucose (74-99) mg/dL POC Glucose (mg/dL) 145 H 126 H (75-99) mg/dL Calcium (8.4-10.2) mg/dL ALT (21-72) U/L Total Protein (6.3-8.2) g/dL Albumin (3.5-5.0) g/dL 02/19/19 02/19/19 02/19/19 Range/Units 04:43 07:01 11:35 WBC (3.8-10.6) k/uL RBC (4.30-5.90) m/uL Hgb (13.0-17.5) gm/dL Hct (39.0-53.0) % Neutrophils # (1.3-7.7) k/uL Lymphocytes # (1.0-4.8) k/uL Chloride 111 H (98-107) mmol/L Carbon Dioxide 20 L (22-30) mmol/L BUN 30 H (9-20) mg/dL Glucose 135 H (74-99) mg/dL POC Glucose (mg/dL) 127 H 126 H (75-99) mg/dL Calcium 8.0 L (8.4-10.2) mg/dL ALT 16 L (21-72) U/L Total Protein 4.7 L (6.3-8.2) g/dL Albumin 2.4 L (3.5-5.0) g/dL
[2019-02-19] MEDS ORDERED: MVI, ADULT NO.4 WITH VIT K 10 ML, TRACE (CONC-1ML/DOSE) 1 ML in AMINO ACID 4.25%-D10W+L... IV ONE ×3 (16:00)
[2019-02-19] MEDS: FAT EMULSION 20% 250 ML IV SCH (17:39)
[2019-02-19 17:49] LABS: Glucose,Whole Blood 142 mg/dL (75-99)
[2019-02-19] MEDS ORDERED: LABETALOL 5 MG/ML VIAL MDV IVP STA (21:07)
[2019-02-20] MEDS: PIPERACILLIN-TAZOBACTAM 3.375 GM in SODIUM CHLORIDE 0.9% 100 ML IVPB SCH ×4 (00:08→23:51)
[2019-02-20] MEDS: METOCLOPRAMIDE 5 MG/ML 2 ML VIAL IVP SCH ×5 (00:08→23:52)
[2019-02-20] MEDS: INSULIN ASPART (NovoLOG) 100 UNIT/ML VIAL SQ SCH ×5 (00:09→23:52)
[2019-02-20 00:15] LABS: Glucose,Whole Blood 177 mg/dL (75-99)
[2019-02-20] MEDS: LABETALOL 5 MG/ML VIAL MDV IVP PRN ×2 (02:14→20:46)
[2019-02-20] MEDS ORDERED: hydrALAZINE HCL 20 MG/ML 1 ML VIAL IVP STA (04:02)
[2019-02-20] MEDS: SODIUM CHLORIDE 0.9% 1,000 ML IV SCH ×3 (04:22→20:21)
[2019-02-20 06:12] LABS: Basophils # (A) 0.1 k/uL (0-0.2); Basophils % (A) 1 %; Eosinophils # (A) 0.2 k/uL (0-0.7); Eosinophils % (A) 1 %; HCT 41.9 % (39.0-53.0); HGB 13.8 gm/dL (13.0-17.5); Lymphocytes # (A) 0.4 k/uL (1.0-4.8); Lymphocytes % (A) 2 %; MCH 31.7 pg (25.0-35.0); MCHC 32.8 g/dL (31.0-37.0); MCV 96.4 fL (80.0-100.0); Mean Platelet Volume 7.2; Monocytes # (A) 0.6 k/uL (0-1.0); Monocytes % (A) 4 %; Neutrophils % (A) 92 %; Platelet Count 332 k/uL (150-450); RBC 4.35 m/uL (4.30-5.90); RDW 13.4 % (11.5-15.5); WBC 17.4 k/uL (3.8-10.6)
[2019-02-20 06:17] LABS: Glucose,Whole Blood 246 mg/dL (75-99)
[2019-02-20 06:52] LABS: African American GFR (CKD) >90 (>60 ml/min/1.73 sqM); Anion Gap 11 mmol/L; Blood Urea Nitrogen 29 mg/dL (9-20); Calcium 8.3 mg/dL (8.4-10.2); Carbon Dioxide 22 mmol/L (22-30); Chloride 109 mmol/L (98-107); Glucose 251 mg/dL (74-99); Phosphorus 2.6 mg/dL (2.5-4.5); Potassium 3.6 mmol/L (3.5-5.1); Sodium 142 mmol/L (137-145); Triglycerides 221 mg/dL (<150)
[2019-02-20] MEDS: TAMSULOSIN 0.4 MG CAP.ER.24H PO SCH (07:59)
[2019-02-20] MEDS: ACETAMINOPHEN TAB 325 MG TAB PO SCH ×2 (08:00→20:07)
[2019-02-20] MEDS: PANTOPRAZOLE 40 MG/10 ML VIAL IVP SCH (08:10)
[2019-02-20] MEDS: HEPARIN SODIUM,PORCINE 5,000 UNIT/ML 1 ML VIAL SQ SCH ×2 (08:10→20:21)
[2019-02-20] MEDS: IOPAMIDOL CONTRAST (ORAL USE) VIAL PO PRN ×2 (08:19→08:20)
[2019-02-20] MEDS: HYDROmorphone 0.5 MG/0.5 ML SYRINGE IVP PRN ×2 (09:22→16:39)
[2019-02-20] MEDS: SIMETHICONE 40 MG/0.6 ML DROPS 2,000 MG/30 ML BOTTLE PO SCH ×4 (09:29→20:21)
[2019-02-20] MEDS: POTASSIUM CHLORIDE 10 MEQ in WATER FOR INJECTION 1 100ML.BAG IVPB SCH ×2 (09:30→11:10)
[2019-02-20] MEDS: 1: MVI, ADULT NO.4 WITH VIT K 10 ML, TRACE (CONC-1ML/DOSE) 1 ML in AMINO ACID 4.25%-D10W IV SCH ×9 (09:46→20:28)
--- NOTE | 2019-02-20 09:49 | P.PN ---
Subjective Progress Note Date: 02/20/19 Principal diagnosis: This is a very pleasant 78-year-old gentleman who is postoperative day #6 status post elective laparoscopic Manuel fundoplication for severe gastroesophageal r eflux disease. He is seen today in follow-up in the intensive care unit. He is awake and alert. He is having some abdominal discomfort this morning. Somewhat distended. Nasogastric tube remains in place. No worsening shortness of breath, cough or congestion. He is maintaining O2 saturation in the low 90s on room air. He is afebrile. White count 17.4. Hemoglobin 13.8. Creatinine 0.82. He remains on Zosyn. DuoNeb inhalations. PPN at 100 ML's per hour. 0.9 normal saline at 50 MLS per hour. Computed tomography scan of the abdomen is pending. Objective - Vital Signs Vital signs: Vital Signs Temp 98.2 F 02/20/19 00:00 Pulse 106 H 02/20/19 07:00 Resp 33 H 02/20/19 07:00 BP 137/72 02/20/19 07:00 Pulse Ox 92 L 02/20/19 07:00 Intake & Output 02/19/19 02/20/19 02/20/19 18:59 06:59 18:59 Intake Total 0038.213 0033 100 Output Total 1705 1085 75 Balance -92.084 315 25 Weight 79.2 kg 80.3 kg Intake: IV 1595 1400 100 Amino Acid 4.25%-D10w+ 50 600 50 Lytes*E* 1,000 ml @ 100 mls/hr IV .BY DURATION [facility] Rx#:[id number] Fat Emulsion 20% 250 ml @ 20 200 20.833 mls/hr IV DAILY@ 1600 [facility] Rx#:[id number] Piperacillin-Tazobactam 3 100 .375 gm In Sodium Chloride 0.9% 100 ml @ 25 mls/hr IVPB Q8HR [facility] Rx# :[id number] Sodium Chloride 0.9% 1, 1425 600 50 000 ml @ 125 mls/hr IV . Q8H [facility] Rx#:[id number] Intake, IV Titration 17.916 Amount Diltiazem 125 mg In 17.916 Sodium Chloride 0.9% 100 ml @ Per Protocol IV .Q0M [facility] Rx#:[id number] Output: Gastric Drainage 900 Urine 805 1085 75 Other: Voiding Method Indwelling Catheter Indwelling Catheter # Bowel Movements 1 - Exam GENERAL EXAM: Alert, doesn't 78-year-old gentleman, fairly comfortable, having abdominal discomfort. 2 L nasal cannula. HEAD: Normocephalic. EYES: Normal reaction of pupils, equal size. NOSE: Nasogastric tube secured in place. Clear with pink turbinates. THROAT: No erythema or exudates. NECK: No masses, no JVD. CHEST: No chest wall deformity. LUNGS: Equal air entry with no crackles, wheeze, rhonchi or dullness. CVS: S1 and S2 normal with no audible murmur, regular rhythm. ABDOMEN: Distended, tender to palpation. No hepatosplenomegaly, normal bowel sounds, no guarding or rigidity. SPINE: No scoliosis or deformity SKIN: No rashes CENTRAL NERVOUS SYSTEM: No focal deficits, tone is normal in all 4 extremities. EXTREMITIES: There is no peripheral edema. No clubbing, no cyanosis. Per ipheral pulses are intact. - Labs CBC & Chem 7: 02/20/19 05:38 02/20/19 05:38 Labs: Abnormal Lab Results - Last 24 Hours (Table) 02/19/19 02/19/19 02/20/19 Range/Units 11:35 17:38 00:02 WBC (3.8-10.6) k/uL Neutrophils # (1.3-7.7) k/uL Lymphocytes # (1.0-4.8) k/uL Chloride (98-107) mmol/L BUN (9-20) mg/dL Glucose (74-99) mg/dL POC Glucose (mg/dL) 126 H 142 H 177 H (75-99) mg/dL Calcium (8.4-10.2) mg/dL Triglycerides (<150) mg/dL 02/20/19 02/20/19 02/20/19 Range/Units 05:38 05:38 06:05 WBC 17.4 H (3.8-10.6) k/uL Neutrophils # 16.0 H (1.3-7.7) k/uL Lymphocytes # 0.4 L (1.0-4.8) k/uL Chloride 109 H (98-107) mmol/L BUN 29 H (9-20) mg/dL Glucose 251 H (74-99) mg/dL POC Glucose (mg/dL) 246 H (75-99) mg/dL Calcium 8.3 L (8.4-10.2) mg/dL Triglycerides 221 H (<150) mg/dL Assessment and Plan Assessment: Impression: #1 Severe gastroesophageal reflux disease, status post elective laparoscopic Manuel fundoplication. Postoperative day #6. #2 Abdominal discomfort with postoperative gastroparesis and ileus, nasogastric tube in place. CT scan of the abdomen pending. #3 New-onset atrial fibrillation, responded to Cardizem. #4 History of diabetes mellitus. #5 History of hypertension. #6 Degenerative joint disease. #7 Gastroesophageal reflux disease with previous dilatation. Plan: The patient was seen and evaluated by Dr. Larose. He is currently stable from the pulmonary standpoint. He is still having some abdominal distention and discomfort. Computed tomography scan of the abdomen is pending. Nasogastric tube remains in place. Continue bronchodilators. Continue Zosyn. We will continue to follow and make further recommendations based on his clinical status. I, the cosigning physician, performed a history & physical examination of the patient. Lungs sounds are clear. Maintaining good O2 saturations in the 90s on room air. I discussed the assessment and plan of care with my nurse practitioner, Ivis Salcido. I attest to the above note as dictated by her.
--- NOTE | 2019-02-20 10:10 | XR ---
EXAMINATION TYPE: XR chest 1V portable DATE OF EXAM: 02/20/2019 COMPARISON: Prior chest x-ray 02/19/2019 HISTORY: Shortness of breath TECHNIQUE: Single frontal view of the chest is obtained. FINDINGS: Patient is rotated. Orogastric tube is coiled in the left upper quadrant, distal tip not i ncluded in the exam however. Bibasilar increased density persists. Heart size is stable. No pneumotho rax. IMPRESSION: Findings similar to prior exam. Basilar atelectasis versus pneumonia and associated effu armida. Correlate to exclude pneumonia. Cardiomegaly.
--- NOTE | 2019-02-20 10:15 | CT ---
EXAMINATION TYPE: CT abdomen pelvis wo con DATE OF EXAM: 02/20/2019 COMPARISON: 02/17/2019 HISTORY: 78-year-old male GERD, Increasing WBC, Ileus and follow up previous CT. Patient with recent Manuel fundoplication performed last week. CT DLP: 794.6 mGycm. Automated exposure control for dose reduction was used. TECHNIQUE: Contiguous axial scanning of the abdomen and pelvis without IV contrast. Coronal and sagit kary reconstructions performed. FINDINGS: Heart upper limits of normal in size. Mild coronary vessel calcifications are present. Slight interval increase and small pleural effusions. Prominent bibasilar areas of atelectasis. An NG tube is present with tip in the stomach. Oral contrast has been administered. Previous oral con trast is located throughout the colon extending into the rectum. New oral contrast opacifies left-andra ed abdominal small bowel loops. Slight increased mild perihepatic and perisplenic ascites. Persistent scattered free air. Multiple foci of free air and focal fluid surround the distal esophagus at the GE junction within the posterior mediastinum with collection measuring up to 5.3 cm, referred to axial image 12. This area previously had more air and measured roughly 5.1 cm. Suggestion of some thickened small bowel loops in the left side of the abdomen, for example, axial im age 62. However, the satisfactory passage of contrast argue against obstruction. Nonopacified region s could represent clumping of small bowel loops or abnormal loculated ascites collections. Interloop ascites persists and some areas have increased. Focal areas of loculated ascites is suggested in the left upper quadrant adjacent to the splenic flec ture measuring 5.0 x 2.2 cm and 4.7 x 2.2 cm, new from prior. Localized ascites collection left mid abdomen measures 6.0 x 2.6 cm but C7 present previously. More a nteriorly, and ascites collection measures 3.8 x 2.0 cm and is increased. Moderate to large pelvic ascites tracking from the abdomen has slightly increased in the interval. No extraluminal contrast collection. Underlying hypodense renal lesions likely cysts. Liver, gallbladder, adrenal glands, spleen, and panc reas show no gross unremarkable by noncontrast CT. Sigmoid diverticulosis. Peter catheter is in place decompressing the bladder. Intraluminal bladder ai r likely from instrumentation. Prostate gland measures 5.4 cm wide. Generalized anasarca change. Bones: degenerative changes at the hips and SI joints. Mild to moderate multilevel degenerative disc disease and facet arthropathy. IMPRESSION: 1. Currently administered oral contrast opacifies left sided jejunal loops. The previously administe red oral contrast has passed into the colon and extends distally to the rectum. This argues against o bstruction. 2. Overall worsening with persistent and slightly increasing mild abdominal and moderate pelvic ascit es. Some of the ascites collections appear localized and may be loculated. 2 such areas in the left u pper quadrant are new measuring up to 5.0 cm. One collection measuring 3.8 cm in the left mid abdomen appears larger. The scattered collections contain foci of air as well and there is scattered persist ent mild free air. 3. Collection of fluid and air along the distal esophagus just above the Manuel wrap measures 5.3 cm versus approximately 5.1 cm, previously, and contains more fluid and less air. 4. Persistent thickening of a few left-sided jejunal loops could be reactive or could represent enter itis. 5. Some type of underlying infectious process or subtle leak may be considered given the increasing a scites though no extraluminal contrast material is identified. 6. Increasing small pleural effusions with adjacent bibasilar atelectasis. Worsening generalized anas arca change.
--- NOTE | 2019-02-20 11:32 | P.PN ---
Progress Note - Text Progress Note Date: 02/20/19 The patient was evaluated at 745 this morning. He states he felt better with improved pain. He states pain was a 3 out of 10. Patient's white count acclimate to 17,000. I ordered another CAT scan of the abdomen pelvis with oral contrast. The patient stated that after he came back the CAT scan he had pain with his stretcher right over the bumps in the hospital. His CAT scan was reviewed with radiologist. There is increasing ascites. There is small bowel inflammation in the left upper quadrant. There is no evidence of any extravasation. Given the patient's overall condition is not improving. And increase to leukocytosis. I recommended exploratory laparotomy to evaluate for any possible source of peritonitis. Patient will be taken for exploratory laparotomy today.
[2019-02-20 11:33] LABS: Glucose,Whole Blood 256 mg/dL (75-99)
[2019-02-20] MEDS ORDERED: ROCURONIUM BROMIDE 10 MG/ML 10 ML VIAL IV ONE (11:49)
[2019-02-20] MEDS ORDERED: LIDOCAINE 1% INJ 10MG/ML (20 ML MDV) ONE (11:49)
[2019-02-20] MEDS ORDERED: PROPOFOL 10 MG/ML 20 ML VIAL IV ONE (11:49)
[2019-02-20] MEDS ORDERED: GLYCOPYRROLATE 0.2 MG/ML 2 ML VIAL ONE (11:49)
[2019-02-20] MEDS ORDERED: NEOSTIGMINE 1 MG/ML 10 ML VIAL ONE (11:49)
[2019-02-20] MEDS ORDERED: MIDAZOLAM 2 MG/2 ML VIAL ONE (11:49)
[2019-02-20] MEDS ORDERED: PHENYLEPHRINE-0.9% NACL SYG 1 MG/10 ML SYRINGE ONE (11:49)
[2019-02-20] MEDS ORDERED: SUCCINYLCHOLINE CHLORIDE 100 MG/5 ML SYR IV ONE (11:49)
[2019-02-20] MEDS ORDERED: fentaNYL (PF) 50 MCG/ML 2 ML AMP ONE (11:49)
[2019-02-20] MEDS ORDERED: HYDROmorphone (PF) 1 MG/ML ONE (11:49)
[2019-02-20] MEDS ORDERED: ePHEDrine SULFATE/0.9% NACL/PF 50 MG/5 ML SYRINGE IV ONE (11:49)
[2019-02-20] MEDS ORDERED: IV FLUID CONTINUATION 400 ML IV ONE (11:51)
[2019-02-20] MEDS ORDERED: LACTATED RINGERS 1,000 ML IV ONE ×2 (12:25→13:38)
[2019-02-20] MEDS: BISACODYL 10 MG SUPP RECTAL SCH (13:27)
[2019-02-20] MEDS: HYDROmorphone 1 MG/ML 1 ML SYRINGE IVP ONE ×2 (14:14→14:27)
--- NOTE | 2019-02-20 14:14 | P.ANPRN ---
Procedure Note - Anesthesia - Invasive Line Right Central Line Time Out Performed: Yes Date of Procedure: 02/20/19 Time of Procedure: 13:50 Location of Patient Procedure: PACU Preparation: Sterile Prep, Sterile Dressing Ultrasound Used: Yes Purpose - Visualization and Identification of Vasculature: Yes Needle Guage: 18 Image Stored and Saved: Yes Narrative: Central line placement per sterile protocol utilized.
--- NOTE | 2019-02-20 14:24 | XR ---
EXAMINATION TYPE: XR chest 1V DATE OF EXAM: 02/20/2019 COMPARISON: Prior chest x-ray 02/20/2019 at earlier time HISTORY: Status post central line placement TECHNIQUE: Single frontal view of the chest is obtained. FINDINGS: There is been interval placement of a right jugular central venous catheter, distal tip is overlying the right atrium. Lung volumes are low. Orogastric tube is in place with the distal tip ov erlying the distal stomach. Surgical everton present within the abdomen. Bibasilar increased density is present. Heart size is stable. No pneumothorax. Metallic densities centered over the cervical spin e may be overlying the patient. Interstitium appears prominently perihilar location on the right. IMPRESSION: No evident, patient status post central venous catheter placement. Expiratory exam. Augusto tional findings above.
[2019-02-20 14:38] LABS: Glucose,Whole Blood 225 mg/dL (75-99)
[2019-02-20] MEDS: FAT EMULSION 20% 250 ML IV SCH (16:40)
[2019-02-20 16:58] LABS: Glucose,Whole Blood 263 mg/dL (75-99)
[2019-02-20] MEDS ORDERED: LACTATED RINGERS 1,000 ML IV SCH (17:15)
[2019-02-20] MEDS: HYDROmorphone 1 MG/ML 1 ML SYRINGE IVP PRN (19:44)
[2019-02-20] MEDS ORDERED: ACETAMINOPHEN IV (For NPO) 1,000 MG in EMPTY BAG 1 BAG IVPB STA (20:18)
--- NOTE | 2019-02-20 22:02 | P.PN ---
Subjective Progress Note Date: 02/19/19 Principal diagnosis: Status post Manuel fundoplication patient is status post Manuel fundoplication 02/16/2019 patient is tachycardic patient abdomen is distended because of constipation grade halogenated repeat CAT scan which did not show any significant blood bowel blockage but does have significant air. Patient may benefit from medications for constipation. We'll obtain an EKG TSH. It appears to be sinus tachycardia clinically. and is in distress because of abdominal distention but able to walk around patient is hypoxic at 90% obtain a chest x-ray as well although clinically patient chest is clear. 02/17/2019 Patient is still tachycardic with heart rate in 90s. Patient is status post Manuel fundoplication on 02/14/2019. Patient is otherwise awake alert and oriented 3. Currently in the intensive care unit. Currently being continued on NG tube due ileus. Abdominal still distended. 02/18/2019 Patient seems to be confused today. Patient went into atrial fibrillation with RVR and was started on Cardizem drip. Repeat CT abdomen and pelvis showed bilateral moderate pleural effusion and bibasilar pulmonary infiltrates. New compared to previous exam. Patient was started on antibiotics no cough Zosyn. Otherwise patient's abdominal still distended. Patient is being continued on NG tube for decompression. Patient has been afebrile. WBC count slightly elevated to 10.8. No bowel movement or passing of flatus at this time. 02/19/2019 Patient is awake alert and oriented 3 today. Patient says that she did pass flatness this morning. Bowel sounds are sluggish. Complains of mild abdominal pain. No fever no chills. Heart rate is better controlled and added Imdur has been discontinued. Patient is being continued on antibiotics Zosyn. NG tube is in place with bilious drainage. All inpatient medications were reviewed and appropriate changes in these medications as dictated in the interval history and assessment and plan. Objective - Vital Signs Vital signs: Vital Signs Temp 97.9 F 02/19/19 12:00 Pulse 89 02/19/19 14:00 Resp 26 H 02/19/19 14:00 BP 130/77 02/19/19 14:00 Pulse Ox 100 02/19/19 14:00 Intake & Output 02/18/19 02/19/19 02/19/19 18:59 06:59 18:59 Intake Total 2987.75 1500 992.916 Output Total 770 1105 895 Balance 2217.75 395 97.916 Weight 76.6 kg 79.2 kg Intake: IV 2925 1500 975 Piperacillin-Tazobactam 3 200 100 .375 gm In Sodium Chloride 0.9% 100 ml @ 25 mls/hr IVPB Q8HR [facility] Rx# :[id number] Sodium Chloride 0.9% 1, 1225 1500 875 000 ml @ 125 mls/hr IV . Q8H [facility] Rx#:[id number] Sodium Chloride 0.9% 1, 1500 500 ml @ 999 mls/hr IV . Q1H31M [facility] Rx#:[id number] Intake, IV Titration 62.75 17.916 Amount Diltiazem 125 mg In 62.75 17.916 Sodium Chloride 0.9% 100 ml @ Per Protocol IV .Q0M [facility] Rx#:[id number] Output: Gastric Drainage 150 400 500 Urine 620 705 395 Other: Voiding Method Indwelling Catheter Indwelling Catheter Indwelling Catheter - Exam PHYSICAL EXAMINATION: GENERAL: The patient is alert and oriented x1, confused. not in any acute distress. Well developed, well nourished. HEENT: Pupils are round and equally reacting to light. EOMI. No scleral icterus. No conjunctival pallor. Normocephalic, atraumatic. No pharyngeal erythema. No thyromegaly. CARDIOVASCULAR: S1 and S2 present. No murmurs, rubs, or gallops. PULMONARY: Chest is clear to auscultation, no wheezing or crackles. ABDOMEN: minimal diffuse tenderness abdomen is distended tympanic sluggish bowel sounds. Surgical site area appears to be not infected and clean MUSCULOSKELETAL: No joint swelling or deformity. EXTREMITIES: No cyanosis, clubbing, or pedal edema. NEUROLOGICAL: Gross neurological examination did not reveal any focal deficits. SKIN: No rashes. - Labs CBC & Chem 7: 02/20/19 05:38 02/20/19 05:38 Labs: Abnormal Lab Results - Last 24 Hours (Table) 02/18/19 02/18/19 02/19/19 Range/Units 17:16 20:28 04:42 WBC 13.5 H (3.8-10.6) k/uL RBC 3.99 L (4.30-5.90) m/uL Hgb 12.5 L (13.0-17.5) gm/dL Hct 37.8 L (39.0-53.0) % Neutrophils # 12.6 H (1.3-7.7) k/uL Lymphocytes # 0.3 L (1.0-4.8) k/uL Chloride (98-107) mmol/L Carbon Dioxide (22-30) mmol/L BUN (9-20) mg/dL Glucose (74-99) mg/dL POC Glucose (mg/dL) 145 H 126 H (75-99) mg/dL Calcium (8.4-10.2) mg/dL ALT (21-72) U/L Total Protein (6.3-8.2) g/dL Albumin (3.5-5.0) g/dL 02/19/19 02/19/19 02/19/19 Range/Units 04:43 07:01 11:35 WBC (3.8-10.6) k/uL RBC (4.30-5.90) m/uL Hgb (13.0-17.5) gm/dL Hct (39.0-53.0) % Neutrophils # (1.3-7.7) k/uL Lymphocytes # (1.0-4.8) k/uL Chloride 111 H (98-107) mmol/L Carbon Dioxide 20 L (22-30) mmol/L BUN 30 H (9-20) mg/dL Glucose 135 H (74-99) mg/dL POC Glucose (mg/dL) 127 H 126 H (75-99) mg/dL Calcium 8.0 L (8.4-10.2) mg/dL ALT 16 L (21-72) U/L Total Protein 4.7 L (6.3-8.2) g/dL Albumin 2.4 L (3.5-5.0) g/dL Assessment and Plan Assessment: - Status post Manuel fundoplication postoperative day 5 due to severe gastroesophageal reflux disease. - New onset atrial fibrillation with RVR. Currently off Cardizem drip. Cardiology is following. - Postoperative ileus. Currently on NG tube. CT abdomen and pelvis showed no evidence of obstruction. - Bilateral moderate pleural effusion and possible basilar infiltrate. - Type 2 diabetes mellitus: Sliding scale insulin hold off metformin as me ntioned above -Hypertension patient blood pressure is elevated because of pain and patientis on his lisinopril -Abdominal pain mostly secondary to constipation and opiate analgesia management as per primary service. -Gastroesophageal reflux disease for which patient underwent Manuel fundoplication on proton pump inhibitor - DVT prophylaxis with heparin subcu Time with Patient: Greater than 30
--- NOTE | 2019-02-20 22:11 | P.PN ---
Subjective Progress Note Date: 02/20/19 Principal diagnosis: Status post Manuel fundoplication patient is status post Manuel fundoplication 02/16/2019 patient is tachycardic patient abdomen is distended because of constipation grade halogenated repeat CAT scan which did not show any significant blood bowel blockage but does have significant air. Patient may benefit from medications for constipation. We'll obtain an EKG TSH. It appears to be sinus tachycardia clinically. and is in distress because of abdominal distention but able to walk around patient is hypoxic at 90% obtain a chest x-ray as well although clinically patient chest is clear. 02/17/2019 Patient is still tachycardic with heart rate in 90s. Patient is status post Manuel fundoplication on 02/14/2019. Patient is otherwise awake alert and oriented 3. Currently in the intensive care unit. Currently being continued on NG tube due ileus. Abdominal still distended. 02/18/2019 Patient seems to be confused today. Patient went into atrial fibrillation with RVR and was started on Cardizem drip. Repeat CT abdomen and pelvis showed bilateral moderate pleural effusion and bibasilar pulmonary infiltrates. New compared to previous exam. Patient was started on antibiotics no cough Zosyn. Otherwise patient's abdominal still distended. Patient is being continued on NG tube for decompression. Patient has been afebrile. WBC count slightly elevated to 10.8. No bowel movement or passing of flatus at this time. 02/19/2019 Patient is awake alert and oriented 3 today. Patient says that she did pass flatness this morning. Bowel sounds are sluggish. Complains of mild abdominal pain. No fever no chills. Heart rate is better controlled and added Imdur has been discontinued. Patient is being continued on antibiotics Zosyn. NG tube is in place with bilious drainage. 02 20 2019 Patient says that he still having abdominal pain 3 out of 10. Due to overall slow improvement and worsening leukocytosis with WBC count 17.5 today, repeat CT abdomen and pelvis was done showed increasing ascites and small bowel inflammation. No evidence of perforation. Patient was taken to walk but expiratory laparotomy and possible peritonitis Patient has been afebrile. NG tube is in place with bilious drainage. No chest pain or shortness of breath. No bowel movement. Current Medications reviewed. Objective - Vital Signs Vital signs: Vital Signs Temp 100.8 F H 02/20/19 20:00 Pulse 103 H 02/20/19 21:30 Resp 33 H 02/20/19 21:30 BP 140/73 02/20/19 21:30 Pulse Ox 92 L 02/20/19 21:30 Intake & Output 02/20/19 02/20/19 02/21/19 06:59 18:59 06:59 Intake Total 1400 4812.49 491.63 Output Total 1085 1210 135 Balance 315 3602.49 356.63 Weight 80.3 kg Intake: IV 1400 3612.49 491.63 Amino Acid 4.25%-D10w+ 600 1050 200 Lytes*E* 1,000 ml @ 100 mls/hr IV .BY DURATION [facility] Rx#:[id number] Fat Emulsion 20% 250 ml @ 200 62.49 41.63 20.833 mls/hr IV DAILY@ 1600 [facility] Rx#:[id number] LR 625 Piperacillin-Tazobactam 3 175 .375 gm In Sodium Chloride 0.9% 100 ml @ 25 mls/hr IVPB Q8HR [facility] Rx# :[id number] Sodium Chloride 0.9% 1, 600 300 250 000 ml @ 125 mls/hr IV . Q8H [facility] Rx#:[id number] Intake, IV Titration 1200 Amount Lactated Ringers 1,000 ml 1000 @ 999 mls/hr IV .Q1H1M [facility] Rx#:[id number] Potassium Chloride 10 meq 200 In Water For Injection 1 100ml.bag @ 100 mls/hr IVPB Q1H [facility] Rx#: [id number] Output: Gastric Drainage 250 Urine 1085 935 135 Estimated Blood Loss 25 Other: Voiding Method Indwelling Catheter Indwelling Catheter Indwelling Catheter - Exam PHYSICAL EXAMINATION: GENERAL: The patient is alert and oriented x1, confused. not in any acute distress. Well developed, well nourished. HEENT: Pupils are round and equally reacting to light. EOMI. No scleral icterus. No conjunctival pallor. Normocephalic, atraumatic. No pharyngeal erythema. No thyromegaly. CARDIOVASCULAR: S1 and S2 present. No murmurs, rubs, or gallops. PULMONARY: Chest is clear to auscultation, no wheezing or crackles. ABDOMEN: minimal diffuse tenderness abdomen is distended tympanic sluggish bowel sounds. Surgical site area appears to be not infected and clean MUSCULOSKELETAL: No joint swelling or deformity. EXTREMITIES: No cyanosis, clubbing, or pedal edema. NEUROLOGICAL: Gross neurological examination did not reveal any focal deficits. SKIN: No rashes. - Labs CBC & Chem 7: 02/20/19 05:38 02/20/19 05:38 Labs: Abnormal Lab Results - Last 24 Hours (Table) 02/20/19 02/20/19 02/20/19 Range/Units 00:02 05:38 05:38 WBC 17.4 H (3.8-10.6) k/uL Neutrophils # 16.0 H (1.3-7.7) k/uL Lymphocytes # 0.4 L (1.0-4.8) k/uL Chloride 109 H (98-107) mmol/L BUN 29 H (9-20) mg/dL Glucose 251 H (74-99) mg/dL POC Glucose (mg/dL) 177 H (75-99) mg/dL Calcium 8.3 L (8.4-10.2) mg/dL Triglycerides 221 H (<150) mg/dL 02/20/19 02/20/19 02/20/19 Range/Units 06:05 11:21 14:30 WBC (3.8-10.6) k/uL Neutrophils # (1.3-7.7) k/uL Lymphocytes # (1.0-4.8) k/uL Chloride (98-107) mmol/L BUN (9-20) mg/dL Glucose (74-99) mg/dL POC Glucose (mg/dL) 246 H 256 H 225 H (75-99) mg/dL Calcium (8.4-10.2) mg/dL Triglycerides (<150) mg/dL 02/20/19 Range/Units 16:46 WBC (3.8-10.6) k/uL Neutrophils # (1.3-7.7) k/uL Lymphocytes # (1.0-4.8) k/uL Chloride (98-107) mmol/L BUN (9-20) mg/dL Glucose (74-99) mg/dL POC Glucose (mg/dL) 263 H (75-99) mg/dL Calcium (8.4-10.2) mg/dL Triglycerides (<150) mg/dL Microbiology - Last 24 Hours (Table) 02/20/19 11:00 Urine Culture - Preliminary Urine,Catheterized Assessment and Plan Assessment: - Status post Manuel fundoplication postoperative day 5 due to severe gastroesophageal reflux disease. - New onset atrial fibrillation with RVR. Currently off Cardizem drip. Cardiology is following. - Postoperative ileus. Currently on NG tube. CT abdomen and pelvis showed no evidence of obstruction. - Bilateral moderate pleural effusion and possible basilar infiltrate. - Type 2 diabetes mellitus: Sliding scale insulin hold off metformin as mentioned above -Hypertension patient blood pressure is elevated because of pain and patientis on his lisinopril -Abdominal pain mostly secondary to constipation and opiate analgesia management as per primary service. -Gastroesophageal reflux disease for which patient underwent Manuel fundoplication on proton pump inhibitor - DVT prophylaxis with heparin subcu Time with Patient: Greater than 30
[2019-02-21 00:03] LABS: Glucose,Whole Blood 222 mg/dL (75-99)
[2019-02-21] MEDS: LABETALOL 5 MG/ML VIAL MDV IVP PRN ×3 (02:18→15:00)
[2019-02-21 04:59] LABS: Basophils # (A) 0.2 k/uL (0-0.2); Basophils % (A) 1 %; Eosinophils # (A) 0.1 k/uL (0-0.7); Eosinophils % (A) 0 %; HCT 41.8 % (39.0-53.0); HGB 13.7 gm/dL (13.0-17.5); Lymphocytes # (A) 0.4 k/uL (1.0-4.8); Lymphocytes % (A) 2 %; MCH 31.4 pg (25.0-35.0); MCHC 32.7 g/dL (31.0-37.0); MCV 96.2 fL (80.0-100.0); Mean Platelet Volume 7.2; Monocytes # (A) 0.5 k/uL (0-1.0); Monocytes % (A) 2 %; Neutrophils # (A) 18.1 k/uL (1.3-7.7); Neutrophils % (A) 92 %; Platelet Count 287 k/uL (150-450); RBC 4.35 m/uL (4.30-5.90); RDW 14.8 % (11.5-15.5); WBC 19.6 k/uL (3.8-10.6)
[2019-02-21 05:23] LABS: African American GFR (CKD) >90 (>60 ml/min/1.73 sqM); Anion Gap 7 mmol/L; Blood Urea Nitrogen 28 mg/dL (9-20); Calcium 7.8 mg/dL (8.4-10.2); Carbon Dioxide 25 mmol/L (22-30); Chloride 109 mmol/L (98-107); Glucose 284 mg/dL (74-99); Phosphorus 2.9 mg/dL (2.5-4.5); Potassium 3.6 mmol/L (3.5-5.1); Sodium 141 mmol/L (137-145)
[2019-02-21] MEDS ORDERED: Potassium Replacement Protocol 1 EACH MISC MISCELLANE PRN (05:51)
[2019-02-21 06:07] LABS: Glucose,Whole Blood 269 mg/dL (75-99)
[2019-02-21] MEDS: INSULIN ASPART (NovoLOG) 100 UNIT/ML VIAL SQ SCH ×4 (06:23→23:40)
[2019-02-21] MEDS: METOCLOPRAMIDE 5 MG/ML 2 ML VIAL IVP SCH ×4 (06:23→23:40)
[2019-02-21] MEDS: POTASSIUM CHLORIDE 10 MEQ in WATER FOR INJECTION 1 100ML.BAG IVPB SCH ×2 (06:23→09:05)
[2019-02-21] MEDS: SODIUM CHLORIDE 0.9% 1,000 ML IV SCH ×3 (06:24→21:10)
[2019-02-21] MEDS: 1: MVI, ADULT NO.4 WITH VIT K 10 ML, TRACE (CONC-1ML/DOSE) 1 ML in AMINO ACID 4.25%-D10W IV SCH ×3 (06:25)
[2019-02-21] MEDS: HYDROmorphone 1 MG/ML 1 ML SYRINGE IVP PRN ×3 (06:31→21:09)
--- NOTE | 2019-02-21 07:54 | XR ---
EXAMINATION TYPE: XR chest 1V portable DATE OF EXAM: 02/21/2019 COMPARISON: Prior chest x-ray 02/20/2019 HISTORY: Shortness of breath TECHNIQUE: Single frontal view of the chest is obtained. FINDINGS: Right jugular central venous catheter, orogastric tube show no interval change. No evident pneumothorax. Perihilar increased density persists, the right and left hemidiaphragms are obscured. Lung volumes are low. Heart is likely enlarged. There are overlying cardiac leads. IMPRESSION: Correlate for congestive heart failure, pulmonary edema, pneumonia with possible associa otf effusions. Expiratory rotated exam.
[2019-02-21] MEDS: CLEVIDIPINE BUTYRATE 25 MG in EMPTY BAG 1 BAG IV SCH ×3 (09:06→21:10)
[2019-02-21] MEDS: PIPERACILLIN-TAZOBACTAM 3.375 GM in SODIUM CHLORIDE 0.9% 100 ML IVPB SCH ×3 (09:11→23:40)
[2019-02-21] MEDS: PANTOPRAZOLE 40 MG/10 ML VIAL IVP SCH (09:22)
[2019-02-21] MEDS: HEPARIN SODIUM,PORCINE 5,000 UNIT/ML 1 ML VIAL SQ SCH ×2 (09:22→21:09)
[2019-02-21] MEDS: SIMETHICONE 40 MG/0.6 ML DROPS 2,000 MG/30 ML BOTTLE PO SCH ×4 (09:23→21:10)
--- NOTE | 2019-02-21 09:44 | P.CONS ---
History of Present Illness - Reason for Consult Consult date: 02/20/19 Peritonitis Requesting physician: Karan Adams - Chief Complaint Abdominal pain and worsening white count - History of Present Illness Patient is a 78-year-old male who is status post laparoscopic Manuel fundoplication performed on 02/14/2019 , patient has been in the hospital since then for postoperative management, the patient has been afebrile, the patient did have a normal white count on presentation to the hospital however he was noticed to have gradual worsening of the white count on the last 3 days and the white count is up to 17,000 today patient was complaining of some epigastric abdominal discomfort more of a burning pain about 5-10 and no radiation patient did have NG for suction some nausea but no vomiting has been noticed with the symptoms that the patient had did have a repeat CT of abdominal pelvis which did show some inflammation in the upper abdominal area but no perforation patient was taken to the OR and status post laparotomy apparently the patient is status post small bowel resection as per the nursing staff as the official report is currently pending at the time of evaluation infection disease was consulted for further management of underlying peritonitis patient is currently on Zosyn and blood culture were drawn this morning Review of Systems Positive points has been mentioned in HPI rest of the systems are negative Past Medical History Past Medical History: Diabetes Mellitus, GERD/Reflux, Hypertension, Skin Disorder Additional Past Medical History / Comment(s): arthritis History of Any Multi-Drug Resistant Organisms: None Reported Past Surgical History: Appendectomy, Orthopedic Surgery, Prostate Surgery Additional Past Surgical History / Comment(s): colonsocopy, maye knee arthroscopy, EGD with diliation, Past Anesthesia/Blood Transfusion Reactions: No Reported Reaction Past Psychological History: No Psychological Hx Reported Smoking Status: Never smoker Past Alcohol Use History: Rare Past Drug Use History: None Reported - Past Family History Mother Family Medical History: No Reported History Medications and Allergies Home Medications Medication Instructions Recorded Confirmed Type Omeprazole 20 mg PO DAILY 10/25/17 02/16/19 History metFORMIN HCL [Glucophage] 500 mg PO DAILY 10/25/17 02/16/19 History traMADol HCL [Ultram] 100 mg PO HS PRN 01/20/19 02/16/19 History Acetaminophen [Tylenol Arthritis] 650 mg PO BID 02/07/19 02/16/19 History Lisinopril [Zestril] 20 mg PO DAILY 02/07/19 02/16/19 History Docusate [Colace] 100 mg PO BID #20 capsule 02/14/19 Rx HYDROcodone/APAP 5-325MG [Leon 1 tab PO Q6HR PRN #10 tab 02/14/19 Rx 5-325] Allergies Allergy/AdvReac Type Severity Reaction Status Date / Time No Known Allergies Allergy Verified 02/16/19 11:11 Physical Exam Vitals: Vital Signs Temp Pulse Pulse Resp BP BP Pulse Ox 02/20/19 14:45 102 H 36 H 140/70 96 02/20/19 14:15 102 H 36 H 154/75 96 02/20/19 14:02 100 36 H 171/79 100 02/20/19 13:45 96 38 H 177/80 100 02/20/19 13:26 98.8 F 94 20 171/78 100 02/20/19 11:15 100 30 H 168/81 95 02/20/19 11:00 106 H 38 H 149/78 96 02/20/19 10:34 102 H 31 H 149/78 96 02/20/19 10:00 113 H 22 146/75 98 02/20/19 09:00 113 H 18 132/85 98 02/20/19 08:00 97.5 F L 105 H 22 162/91 95 02/20/19 07:00 106 H 33 H 137/72 92 L 02/20/19 06:00 108 H 25 H 159/74 93 L 02/20/19 05:00 104 H 41 H 170/87 95 02/20/19 04:00 94 36 H 171/85 93 L 02/20/19 03:00 91 32 H 159/82 92 L 02/20/19 02:00 98 30 H 171/91 94 L 02/20/19 01:00 96 28 H 159/86 94 L 02/20/19 00:12 97 28 H 94 L 02/20/19 00:00 98.2 F 97 24 156/80 93 L 02/19/19 23:00 98 24 178/92 94 L 02/19/19 22:00 91 31 H 169/78 95 02/19/19 21:00 95 29 H 177/86 95 02/19/19 20:00 98.4 F 92 27 H 150/76 94 L 02/19/19 19:00 105 H 23 179/84 94 L 02/19/19 18:00 114 H 27 H 172/84 97 02/19/19 17:00 101 H 22 170/83 94 L Intake and Output 02/20/19 02/20/19 02/20/19 06:59 14:59 22:59 Intake Total 920 2550 225 Output Total 775 625 150 Balance 145 1925 75 Intake: IV 920 2350 225 Amino Acid 4.25%-D10w+ 400 550 100 Lytes*E* 1,000 ml @ 100 mls/hr IV .BY DURATION [facility] Rx#:[id number] Fat Emulsion 20% 250 ml @ 120 20.833 mls/hr IV DAILY@ 1600 [facility] Rx#:[id number] LR 125 Piperacillin-Tazobactam 3 100 .375 gm In Sodium Chloride 0.9% 100 ml @ 25 mls/hr IVPB Q8HR [facility] Rx# :[id number] Sodium Chloride 0.9% 1, 400 300 000 ml @ 125 mls/hr IV . Q8H [facility] Rx#:[id number] Intake, IV Titration 200 Amount Potassium Chloride 10 meq 200 In Water For Injection 1 100ml.bag @ 100 mls/hr IVPB Q1H [facility] Rx#: [id number] Output: Gastric Drainage 150 Urine 775 450 150 Estimated Blood Loss 25 Other: Voiding Method Indwelling Catheter Indwelling Catheter Weight 80.3 kg GENERAL DESCRIPTION: An elderly male lying in bed, no distress. No tachypnea or accessory muscle of respiration use. HEENT: Shows Pallor , no scleral icterus. Oral mucous membrane is dry. No pharyngeal erythema or thrush NECK: Trachea central, no thyromegaly. LUNGS: Unlabored breathing. Clear to auscultation anteriorly. No wheeze or crackle. HEART: S1, S2, regular rate and rhythm. No loud murmur ABDOMEN: Soft, mild distention and epigastric tenderness , no guarding or rigidity, no organomegaly EXTREMITIES: No edema of feet. SKIN: No rash, no masses palpable. NEUROLOGICAL: The patient is awake, alert, oriented x3, mood and affect normal. Results CBC & Chem 7: 02/21/19 04:40 02/21/19 04:40 Labs: Abnormal Lab Results - Last 24 Hours (Table) 02/19/19 02/20/19 02/20/19 Range/Units 17:38 00:02 05:38 WBC (3.8-10.6) k/uL Neutrophils # (1.3-7.7) k/uL Lymphocytes # (1.0-4.8) k/uL Chloride 109 H (98-107) mmol/L BUN 29 H (9-20) mg/dL Glucose 251 H (74-99) mg/dL POC Glucose (mg/dL) 142 H 177 H (75-99) mg/dL Calcium 8.3 L (8.4-10.2) mg/dL Triglycerides 221 H (<150) mg/dL 02/20/19 02/20/19 02/20/19 Range/Units 05:38 06:05 11:21 WBC 17.4 H (3.8-10.6) k/uL Neutrophils # 16.0 H (1.3-7.7) k/uL Lymphocytes # 0.4 L (1.0-4.8) k/uL Chloride (98-107) mmol/L BUN (9-20) mg/dL Glucose (74-99) mg/dL POC Glucose (mg/dL) 246 H 256 H (75-99) mg/dL Calcium (8.4-10.2) mg/dL Triglycerides (<150) mg/dL 02/20/19 Range/Units 14:30 WBC (3.8-10.6) k/uL Neutrophils # (1.3-7.7) k/uL Lymphocytes # (1.0-4.8) k/uL Chloride (98-107) mmol/L BUN (9-20) mg/dL Glucose (74-99) mg/dL POC Glucose (mg/dL) 225 H (75-99) mg/dL Calcium (8.4-10.2) mg/dL Triglycerides (<150) mg/dL Microbiology - Last 24 Hours (Table) 02/20/19 11:00 Urine Culture - Preliminary Urine,Catheterized Assessment and Plan Assessment: 1-patient with elevated white count in this patient who is status post Manuel fundoplication for symptomatic gastro-esophageal reflux disease now status post laparotomy with evidence of peritonitis some of it could have been related to underlying chemical irritation from medications as the patient's currently not running any high-grade fever and a lot of toxic though infectious etiology not entirely excluded, will need to cover for enteric gram-negative and yeast 2-patient is on medication contraindicated the use of Diflucan (1) Peritonitis Current Visit: Yes Status: Acute Code(s): K65.9 - PERITONITIS, UNSPECIFIED SNOMED Code(s): 16328386 (2) Leukocytosis Current Visit: Yes Status: Acute Code(s): D72.829 - ELEVATED WHITE BLOOD CELL COUNT, UNSPECIFIED SNOMED Code(s): 707161214 Plan: 1-blood culture has been repeated those will be followed 2-Zosyn 3.375 g every 8 hours 3-we will add Eraxis 200 mg 1 and then 100 mg daily we will follow on clinical condition and culture to further adjust medication if needed Thank you for this consultation will follow this patient along with you family at the bedside questions concerned were answered Time with Patient: Greater than 30
[2019-02-21] MEDS: BISACODYL 10 MG SUPP RECTAL SCH (09:55)
[2019-02-21] MEDS ORDERED: ANIDULAFUNGIN 200 MG in SODIUM CHLORIDE 0.9% 200 ML IVPB ONE (10:00)
--- NOTE | 2019-02-21 10:24 | PN ---
PROGRESS NOTE DATE OF SERVICE: February 21, 2019 This is a 78-year-old gentleman who is postop day #7 status post elective laparoscopic Manuel fundoplication for severe gastroesophageal reflux disease. He had postoperative abdominal distention, discomfort, ileus and gastroparesis. He was taken back to the operating room yesterday by Dr. Adams. There was a 2 mm rent in the small bowel. It was over sewed. The patient's abdomen was washed out. Hence, he is postop day #1 status post that procedure. He also has a history of new onset atrial fibrillation, which responded nicely to Cardizem. In addition, he has a history of diabetes mellitus, hypertension, DJD, and gastroesophageal reflux disease with previous esophageal dilatation. Currently, the patient is feeling better. He is on 2 L nasal cannula. He is getting saline at 125 mL an hour. He is getting peripheral parental nutrition at 99 mL an hour. Lipids are currently not running. He feels better. He is wearing abdominal binder. We did discuss the case with Dr. Adams yesterday after the second operation. PHYSICAL EXAMINATION: VITAL SIGNS: Current vital signs include temperature 98, heart rate 100, respiratory rate mid 20s, blood pressure 174/98, mean 123, saturations are 93% to 95% on 2 L. GENERAL: Appears in no acute distress. Lying flat in bed. HEENT: Examination is grossly unremarkable. Nasal O2 noted. NECK: Supple. Full range of motion. No adenopathy. Neck veins are flat. CARDIOVASCULAR: Examination reveals regular rhythm and rate. Heart rate is about 100 beats per minute. He is in sinus. S1, S2 normal. Heart sounds are distant. LUNGS: Reveal a few scattered rhonchi. Breath sounds are diminished. ABDOMEN: Is still distended. He is wearing abdominal binder. No bowel sounds. EXTREMITIES: Are intact. No edema. SKIN: Without rash. NEUROLOGIC: Examination is brief but nonfocal. Microbiology is negative or pending. LABS: Labs are reviewed. White count 19.6, hemoglobin 13.7, hematocrit 41.8, platelet count 287,000. Sodium 141, potassium 3.6, chloride 109, CO2 is 25. BUN and creatinine were 28 and 0.69. Anion gap is 7. The rest of the labs look good. Chest x-ray is done. It shows changes of fluid overload. MEDICATIONS: Medication-manzo, the patient is on appropriate medications and is also on Eraxis, Cleviprex, Haldol p.r.n., Zosyn and other usual medications. ASSESSMENT: 1. Postoperative day #1, status post exploratory laparotomy with repair of small-bowel perforation and abdominal cavity washout. 2. Postoperative day #7, status post elective laparoscopic Manuel fundoplication for severe acid reflux disease. 3. Postoperative ileus and gastroparesis. 4. New onset atrial fibrillation. 5. History of diabetes mellitus. 6. History of hypertension. 7. Degenerative joint disease. 8. History of acid reflux disease and esophageal stricture, status post dilatation. PLAN: The patient will continue on incentive spirometer to prevent atelectasis and pneumonia. The patient will also focus on deep breathing, coughing and clearing of secretions. Currently, the patient is on PPN. In addition, the patient is on his usual medications and antibiotics. We will continue to follow. Prognosis is guarded. MMODL / IJN: [id number] /
--- NOTE | 2019-02-21 11:06 | P.OP ---
Date of Procedure: 02/20/19 Preoperative Diagnosis: Peritonitis Postoperative Diagnosis: Small bowel perforation Procedure(s) Performed: Exploratory laparotomy Washout of abdomen Enterorrhaphy Anesthesia: ANAND Surgeon: Karan Adams Estimated Blood Loss (ml): 25 Pathology: none sent Condition: stable Disposition: PACU Operative Findings: 3 mm small bowel perforation Description of Procedure: The patient's placed on the operating table in the supine position. He received general anesthesia. His abdomen was prepped and draped usual sterile fashion. The abdomen was entered through midline incision. Upon entering the peritoneal cavity there was some bilious fluid. The bowel was quite distended. The incision was extended cephalad and caudally and then the abdomen was explored. There appeared to be bilious fluid throughout however in the lower midabdomen there appeared to be a pocket of bile contained between loops of small bowel. This was exposed and there was a 2 mm perforation of the small bowel. This was oversewn with 3-0 GI silk suture. The bowel was run and appeared to be evidence of obstruction at the adhesions related to his previous appendectomy. The adhesions to the small bowel were lysed using sharp dissection. The bowel was then run from the ligament of Treitz to the terminal ileum and ileocecal valve. There was no other evidence of any obstruction. There is anyotherperforation.[id number]. The fascia was then closed with looped #1 PDS suture. Skin was closed everton. Patient top she will was sent to recovery room in stable condition.
[2019-02-21 12:11] LABS: Glucose,Whole Blood 249 mg/dL (75-99)
[2019-02-21] MEDS: HYDROmorphone 0.5 MG/0.5 ML SYRINGE IVP PRN (12:19)
--- NOTE | 2019-02-21 12:27 | P.PN ---
Subjective Progress Note Date: 02/21/19 Principal diagnosis: Repair of small bowel perforation The patient states he feels better today. He has some incisional pain. He is sitting up in a chair. Objective - Vital Signs Vital signs: Vital Signs Temp 97.5 F L 02/21/19 08:00 Pulse 112 H 02/21/19 11:00 Resp 44 H 02/21/19 11:00 BP 145/82 02/21/19 11:00 Pulse Ox 92 L 02/21/19 11:00 Intake & Output 02/20/19 02/21/19 02/21/19 18:59 06:59 18:59 Intake Total 4812.49 3862.43 1200 Output Total 1210 1300 415 Balance 3602.49 2562.43 785 Weight 80.5 kg 80.5 kg Intake: IV 3612.49 2862.43 1000 Amino Acid 4.25%-D10w+ 1050 1200 400 Lytes*E* 1,000 ml @ 100 mls/hr IV .BY DURATION [facility] Rx#:[id number] Fat Emulsion 20% 250 ml @ 62.49 62.43 20.833 mls/hr IV DAILY@ 1600 [facility] Rx#:[id number] LR 625 Piperacillin-Tazobactam 3 175 100 100 .375 gm In Sodium Chloride 0.9% 100 ml @ 25 mls/hr IVPB Q8HR [facility] Rx# :[id number] Sodium Chloride 0.9% 1, 300 1500 500 000 ml @ 125 mls/hr IV . Q8H [facility] Rx#:[id number] Intake, IV Titration 1200 1000 200 Amount Amino Acid 4.25%-D10w+ 1000 Lytes*E* 1,000 ml @ 100 mls/hr IV .BY DURATION [facility] Rx#:[id number] Anidulafungin 200 mg In 200 Sodium Chloride 0.9% 200 ml @ 84 mls/hr IVPB ONCE ONE Rx#:[id number] Lactated Ringers 1,000 ml 1000 @ 999 mls/hr IV .Q1H1M [facility] Rx#:[id number] Potassium Chloride 10 meq 200 In Water For Injection 1 100ml.bag @ 100 mls/hr IVPB Q1H [facility] Rx#: [id number] Output: Gastric Drainage 250 450 Urine 935 850 415 Estimated Blood Loss 25 Other: Voiding Method Indwelling Catheter Indwelling Catheter - Constitutional General appearance: Present: cooperative - Gastrointestinal Gastrointestinal Comment(s): Abdomen soft. There is some mild distention. Incision sites clean dry intact. - Labs CBC & Chem 7: 02/21/19 04:40 02/21/19 04:40 Labs: Abnormal Lab Results - Last 24 Hours (Table) 02/20/19 02/20/19 02/20/19 Range/Units 14:30 16:46 23:52 WBC (3.8-10.6) k/uL Neutrophils # (1.3-7.7) k/uL Lymphocytes # (1.0-4.8) k/uL Chloride (98-107) mmol/L BUN (9-20) mg/dL Glucose (74-99) mg/dL POC Glucose (mg/dL) 225 H 263 H 222 H (75-99) mg/dL Calcium (8.4-10.2) mg/dL 02/21/19 02/21/19 02/21/19 Range/Units 04:40 04:40 05:55 WBC 19.6 H (3.8-10.6) k/uL Neutrophils # 18.1 H (1.3-7.7) k/uL Lymphocytes # 0.4 L (1.0-4.8) k/uL Chloride 109 H (98-107) mmol/L BUN 28 H (9-20) mg/dL Glucose 284 H (74-99) mg/dL POC Glucose (mg/dL) 269 H (75-99) mg/dL Calcium 7.8 L (8.4-10.2) mg/dL 02/21/19 Range/Units 11:59 WBC (3.8-10.6) k/uL Neutrophils # (1.3-7.7) k/uL Lymphocytes # (1.0-4.8) k/uL Chloride (98-107) mmol/L BUN (9-20) mg/dL Glucose (74-99) mg/dL POC Glucose (mg/dL) 249 H (75-99) mg/dL Calcium (8.4-10.2) mg/dL Microbiology - Last 24 Hours (Table) 02/20/19 11:00 Urine Culture - Preliminary Urine,Catheterized Assessment and Plan Assessment: Status post laparoscopic dislocation with subsequent small bowel repair. Patient will remain nothing by mouth on TPN. He will start his diet once he has return of bowel functions.
[2019-02-21] MEDS ORDERED: ACETAMINOPHEN IV (For NPO) 1,000 MG in EMPTY BAG 1 BAG IVPB PRN ×2 (13:05→13:30)
[2019-02-21] MEDS: POTASSIUM CHLORIDE 20 MEQ in WATER FOR INJECTION 1 100ML.BAG IVPB ONE (14:56)
[2019-02-21] MEDS: ACETAMINOPHEN TAB 325 MG TAB PO SCH ×2 (14:57→20:16)
[2019-02-21] MEDS: TAMSULOSIN 0.4 MG CAP.ER.24H PO SCH (14:57)
[2019-02-21] MEDS: 1: MVI, ADULT NO.4 WITH VIT K 10 ML, TRACE (CONC-1ML/DOSE) 1 ML in AMINO ACID 5%-D15W+LY IV SCH ×3 (16:19)
[2019-02-21] MEDS: FAT EMULSION 20% 250 ML IV SCH (16:20)
[2019-02-21] MEDS ORDERED: 1: MVI, ADULT NO.4 WITH VIT K 10 ML, TRACE (CONC-1ML/DOSE) 1 ML, POTASSIUM CHLORIDE 16 M IV SCH ×4 (16:30)
[2019-02-21 16:37] LABS: Glucose,Whole Blood 217 mg/dL (75-99)
[2019-02-21 17:31] LABS: Glucose,Whole Blood 211 mg/dL (75-99)
--- NOTE | 2019-02-21 18:06 | PN ---
PROGRESS NOTE DATE OF SERVICE: 02/21/2019 REASON FOR FOLLOWUP: Peritonitis from perforated small bowel. INTERVAL HISTORY: The patient did have a low-grade fever of 100.1 axillary. The patient is currently hemodynamically stable, not requiring any pressor support. The patient's abdominal pain has decreased in intensity, but the patient says it is about 3/10 compared to 4/10 yesterday. Still has the NG in. No nausea, no vomiting and no bowel movement. PHYSICAL EXAMINATION: On examination, his blood pressure is 109/69 with a pulse of 109, temperature 98.4. T- max 100.1. He is 90% on 4 L nasal cannula. General description is an elderly male lying in bed in no distress. RESPIRATORY SYSTEM: Unlabored breathing with decreased breath sounds at the base. No wheeze. HEART: S1, S2. Tachycardic. ABDOMEN: Soft. Mildly distended. No guarding or rigidity. EXTREMITIES: No edema of the feet. LABS: Hemoglobin 13.7, white count 19.6, BUN of 28, creatinine 0.69. DIAGNOSTIC IMPRESSION AND PLAN: Patient with peritonitis from small perforation in small bowel that was repaired yesterday at laparotomy. The patient did have a low-grade fever. Blood culture has been repeated. Currently on Zosyn and Eraxis; to continue, adjusting antibiotic further based on the culture report and clinical response. Family at the bedside. Questions were answered. MMODL / IJN: [id number] /
[2019-02-21] MEDS: DILTIAZEM 125 MG in SODIUM CHLORIDE 0.9% 100 ML IV SCH (18:17)
[2019-02-21] MEDS: KETOROLAC 30 MG/ML 1 ML VIAL IVP SCH (19:00)
[2019-02-21] MEDS: IPRATROPIUM-ALBUTEROL 3 ML NEB INHALATION PRN (23:22)
[2019-02-21 23:52] LABS: Glucose,Whole Blood 256 mg/dL (75-99)
[2019-02-22] MEDS: CLEVIDIPINE BUTYRATE 25 MG in EMPTY BAG 1 BAG IV SCH ×6 (01:45→21:58)
--- NOTE | 2019-02-22 01:49 | XR ---
EXAMINATION TYPE: XR chest 1V DATE OF EXAM: 02/22/2019 COMPARISON: 02/21/2019 HISTORY: Short of breath TECHNIQUE: Single frontal view of the chest is obtained. FINDINGS: Heart is enlarged. There is pulmonary vascular congestion. There is nasogastric tube in go od position. There is right jugular catheter with tip in the superior vena cava. There is blunting of costophrenic angles. Pulmonary interstitial edema. IMPRESSION: Congestive heart failure with pleural effusions. No change compared to yesterday.
[2019-02-22] MEDS: METOCLOPRAMIDE 5 MG/ML 2 ML VIAL IVP SCH ×4 (05:14→23:03)
[2019-02-22] MEDS: 1: MVI, ADULT NO.4 WITH VIT K 10 ML, TRACE (CONC-1ML/DOSE) 1 ML in AMINO ACID 5%-D15W+LY IV SCH ×6 (05:14→16:56)
[2019-02-22] MEDS: SODIUM CHLORIDE 0.9% 1,000 ML IV SCH ×3 (05:15→18:29)
[2019-02-22 05:28] LABS: Basophils # (A) 0.1 k/uL (0-0.2); Basophils % (A) 1 %; Eosinophils # (A) 0.1 k/uL (0-0.7); Eosinophils % (A) 0 %; HCT 36.9 % (39.0-53.0); HGB 11.8 gm/dL (13.0-17.5); Lymphocytes # (A) 0.8 k/uL (1.0-4.8); Lymphocytes % (A) 3 %; MCH 30.9 pg (25.0-35.0); MCHC 32.1 g/dL (31.0-37.0); MCV 96.3 fL (80.0-100.0); Mean Platelet Volume 7.7; Monocytes # (A) 0.6 k/uL (0-1.0); Monocytes % (A) 3 %; Neutrophils # (A) 21.1 k/uL (1.3-7.7); Neutrophils % (A) 90 %; Platelet Count 287 k/uL (150-450); RBC 3.83 m/uL (4.30-5.90); RDW 14.3 % (11.5-15.5); WBC 23.4 k/uL (3.8-10.6)
[2019-02-22 05:48] LABS: African American GFR (CKD) >90 (>60 ml/min/1.73 sqM); Anion Gap 6 mmol/L; Blood Urea Nitrogen 29 mg/dL (9-20); Calcium 7.8 mg/dL (8.4-10.2); Carbon Dioxide 25 mmol/L (22-30); Chloride 109 mmol/L (98-107); Glucose 299 mg/dL (74-99); Magnesium 2.1 mg/dL (1.6-2.3); Phosphorus 2.2 mg/dL (2.5-4.5); Potassium 3.4 mmol/L (3.5-5.1); Sodium 140 mmol/L (137-145)
[2019-02-22] MEDS ORDERED: Potassium Replacement Protocol 1 EACH MISC MISCELLANE PRN (06:11)
[2019-02-22] MEDS: INSULIN ASPART (NovoLOG) 100 UNIT/ML VIAL SQ SCH ×4 (06:19→23:42)
[2019-02-22] MEDS: POTASSIUM CHLORIDE 20 MEQ in WATER FOR INJECTION 1 100ML.BAG IVPB SCH ×4 (06:19→18:28)
[2019-02-22] MEDS ORDERED: FUROSEMIDE 10 MG/ML 4 ML VIAL IV STA (07:50)
--- NOTE | 2019-02-22 07:50 | P.PN ---
Subjective Progress Note Date: 02/22/19 Principal diagnosis: Elective Niesen fundoplication for severe gastroesophageal reflux disease, postoperative day #8. Ileus and gastroparesis postoperatively with exploratory laparotomy repair of the 2 mm bowel laceration and abdominal washout and is postoperative day #2. This patient is seen today 02/22/2018 in follow-up in the intensive care unit. He is currently awake and alert in no acute distress. He is status post elective laparoscopic David fundoplication for severe acid reflux and is postoperative day #8. He developed postop ileus and gastroparesis requiring e xploratory laparotomy and repair of small bowel perforation and abdominal cavity washout and it is postoperative day #2. He remains with NG tube in place. Awake and alert in no acute distress. He is having ongoing issues with intermittent atrial fibrillation he is on Cardizem at 5 mg per hour. Cleviprex at 4 mg per hour. 0.9 normal saline at 125 mL per hour. He is receiving TPN at 85 ML's per hour. He remains on 10 L high flow nasal cannula to maintain O2 saturations in the 90s. Chest x-ray shows evidence of congestive heart failure with small effusions. He is afebrile. Heart rate better controlled this morning. In the 90s. He is tachypneic in the 30s and 40s. Blood pressure sta ble. Blood and urine cultures reveal no growth. White count 23.4. Hemoglobin 11.8. Creatinine 0.87. He is currently on Zosyn and Anidulafungin. Objective - Vital Signs Vital signs: Vital Signs Temp 97.8 F 02/22/19 04:00 Pulse 95 02/22/19 07:00 Resp 41 H 02/22/19 07:00 BP 132/63 02/22/19 07:00 Pulse Ox 94 L 02/22/19 07:00 Intake & Output 02/21/19 02/22/19 02/22/19 18:59 06:59 18:59 Intake Total 2435.831 3196.981 Output Total 875 1385 Balance 6871.986 3669.981 Weight 80.5 kg 84.6 kg Intake: IV 1920.83 2990.63 Amino Acid 4.25%-D10w+ 800 Lytes*E* 1,000 ml @ 100 mls/hr IV .BY DURATION [facility] Rx#:[id number] Fat Emulsion 20% 250 ml @ 20.83 145.63 20.833 mls/hr IV DAILY@ 1600 [facility] Rx#:[id number] Mvi, Adult No.4 with Vit 1020 K 10 ml Trace (Conc-1Ml/ Dose) 1 ml In Amino Acid 5%-D15w+Lytes*E* 1,000 ml @ 85 mls/hr IV .BY DURATION [facility] Rx#: [id number] Piperacillin-Tazobactam 3 100 100 .375 gm In Sodium Chloride 0.9% 100 ml @ 25 mls/hr IVPB Q8HR [facility] Rx# :[id number] Potassium Chloride 20 meq 100 In Water For Injection 1 100ml.bag @ 50 mls/hr IVPB Q2H [facility] Rx#: [id number] Sodium Chloride 0.9% 1, 1000 1625 000 ml @ 125 mls/hr IV . Q8H [facility] Rx#:[id number] Intake, IV Titration 515.001 206.351 Amount ACETAMINOPHEN IV (For NPO 100 ) 1,000 mg In Empty Bag 1 bag @ 400 mls/hr IVPB Q6HR [facility] Rx#:[id number] Amino Acid 5%-D15w+Lytes* 85 85 E* 1,000 ml @ 85 mls/hr IV .BY DURATION [facility] Rx#: [id number] Anidulafungin 200 mg In 200 Sodium Chloride 0.9% 200 ml @ 84 mls/hr IVPB ONCE ONE Rx#:[id number] Clevidipine Butyrate 25 30.001 106.934 mg In Empty Bag 1 bag @ 1 MG/HR 2 mls/hr IV .Q24H [facility] Rx#:[id number] Diltiazem 125 mg In 14.417 Sodium Chloride 0.9% 100 ml @ Per Protocol IV .Q0M [facility] Rx#:[id number] Potassium Chloride 20 meq 100 In Water For Injection 1 100ml.bag @ 50 mls/hr IVPB ONCE ONE Rx#: [id number] Output: Gastric Drainage 550 Urine 875 835 Other: Voiding Method Indwelling Catheter Indwelling Catheter # Bowel Movements 75 - Exam GENERAL EXAM: Alert, pleasant 78-year-old gentleman, fairly comfortable, abdominal discomfort improved. 10 L high flow nasal cannula HEAD: Normocephalic. EYES: Normal reaction of pupils, equal size. NOSE: Nasogastric tube secured in place. Clear with pink turbinates. THROAT: No erythema or exudates. NECK: No masses, no JVD. CHEST: No chest wall deformity. LUNGS: Equal air entry with bilateral scattered rhonchi, crackles in the bilateral posterior bases. CVS: S1 and S2 normal with no audible murmur, irregular rhythm. ABDOMEN: Distended, tender to palpation. No hepatosplenomegaly, normal bowel sounds, no guarding or rigidity. SPINE: No scoliosis or deformity SKIN: No rashes CENTRAL NERVOUS SYSTEM: No focal deficits, tone is normal in all 4 extremities. EXTREMITIES: There is no peripheral edema. No clubbing, no cyanosis. Peripheral pulses are intact. - Labs CBC & Chem 7: 02/22/19 05:05 02/22/19 05:05 Labs: Abnormal Lab Results - Last 24 Hours (Table) 02/21/19 02/21/19 02/21/19 Range/Units 11:59 16:25 17:20 WBC (3.8-10.6) k/uL RBC (4.30-5.90) m/uL Hgb (13.0-17.5) gm/dL Hct (39.0-53.0) % Neutrophils # (1.3-7.7) k/uL Lymphocytes # (1.0-4.8) k/uL Potassium (3.5-5.1) mmol/L Chloride (98-107) mmol/L BUN (9-20) mg/dL Glucose (74-99) mg/dL POC Glucose (mg/dL) 249 H 217 H 211 H (75-99) mg/dL Calcium (8.4-10.2) mg/dL Phosphorus (2.5-4.5) mg/dL 02/21/19 02/22/19 02/22/19 Range/Units 23:40 05:05 05:05 WBC 23.4 H (3.8-10.6) k/uL RBC 3.83 L (4.30-5.90) m/uL Hgb 11.8 L (13.0-17.5) gm/dL Hct 36.9 L (39.0-53.0) % Neutrophils # 21.1 H (1.3-7.7) k/uL Lymphocytes # 0.8 L (1.0-4.8) k/uL Potassium 3.4 L (3.5-5.1) mmol/L Chloride 109 H (98-107) mmol/L BUN 29 H (9-20) mg/dL Glucose 299 H (74-99) mg/dL POC Glucose (mg/dL) 256 H (75-99) mg/dL Calcium 7.8 L (8.4-10.2) mg/dL Phosphorus 2.2 L (2.5-4.5) mg/dL Microbiology - Last 24 Hours (Table) 02/20/19 11:00 Urine Culture - Final Urine,Catheterized 02/20/19 11:12 Blood Culture - Preliminary Blood No Growth after 24 hours 02/20/19 11:00 Blood Culture - Preliminary Blood No Growth after 24 hours Assessment and Plan Assessment: Impression: #1 Severe gastroesophageal reflux disease, status post elective laparoscopic Manuel fundoplication. Postoperative day #8. #2 Abdominal discomfort with postoperative gastroparesis and ileus, nasogastric tube in place. Post operative ileus and gastroparesis requiring exploratory laparotomy with repair of bowel laceration and abdominal washout. Postoperative day #2. #3 New-onset atrial fibrillation, currently on Cardizem drip. #4 History of diabetes mellitus. #5 History of hypertension. #6 Degenerative joint disease. #7 Gastroesophageal reflux disease with previous dilatation. Plan: The patient was seen and evaluated by Dr. Larose. His abdominal discomfort has improved. Nasogastric tube remains in place. Still requiring 10 L high flow nasal cannula to maintain O2 saturations in the 90s. Chest x-ray shows evidence of congestive heart failure with pleural effusions. We'll give him 1 dose of Lasix 40 mg IVP. He is resumed on a Cardizem drip for recurrent atrial fibrillation. Currently in sinus with frequent PVCs. Cardiology consult pending. Continue to encourage increased use of the incentive spirometer and cough and deep breathing exercises. Continue bronchodilators. Continue Zosyn and Anidulafungin. We will continue to follow and make further recommendations based on his clinical status. I, the cosigning physician, performed a history & physical examination of the patient. Lungs sounds with bilateral scattered rhonchi, crackles in the posterio r bases. Maintaining good O2 saturations in the 90s on 10 liters high flow nasal cannula. I discussed the assessment and plan of care with my nurse practitioner, Ivis Salcido. I attest to the above note as dictated by her.
--- NOTE | 2019-02-22 08:27 | P.CRDCN ---
History of Present Illness Consult date: 02/22/19 History of present illness: This is a 78-year-old gentleman who underwent elective laparoscopic Manuel fundoplication for severe gastrointestinal reflux disease, on February 14. Postoperatively, patient developed previous and required exploratory surgery for small bowel perforation. Patient is intubated eighth or ninth today postoperative. Patient has been having intermittent atrial fibrillation. He has been treated with IV Cardizem. Last night patient had another bout and was treated with IV Cardizem with conversion to sinus rhythm. We're asked to see the patient for further evaluation. At the time of my examination patient is in sinus rhythm with frequent APCs. He denies any chest pain or shortness of breath. Patient has an NG tube and seems to be nothing by mouth at this time. His past medical history significant about diamonds mellitus, hypertension, arthritis. No history of any previous myocardial infarctions. Given his age and previous history of hypertension and diabetes, patient should be considered for anticoagulation therapy. I'll continue with IV Cardizem for now and if the atrial fibrillation and attends, we may consider putting him on IV amiodarone. I will also get an echocardiogram. Further recommendations depend upon the clinical course. EKG previously showed sinus rhythm without any acute changes and also repeat in the EKG. Past Medical History Past Medical History: Diabetes Mellitus, GERD/Reflux, Hypertension, Skin Disorder Additional Past Medical History / Comment(s): arthritis History of Any Multi-Drug Resistant Organisms: None Reported Past Surgical History: Appendectomy, Orthopedic Surgery, Prostate Surgery Additional Past Surgical History / Comment(s): colonsocopy, maye knee arthroscopy, EGD with diliation, Past Anesthesia/Blood Transfusion Reactions: No Reported Reaction Past Psychological History: No Psychological Hx Reported Smoking Status: Never smoker Past Alcohol Use History: Rare Past Drug Use History: None Reported - Past Family History Mother Family Medical History: No Reported History Medications and Allergies Home Medications Medication Instructions Recorded Confirmed Type Omeprazole 20 mg PO DAILY 10/25/17 02/16/19 History metFORMIN HCL [Glucophage] 500 mg PO DAILY 10/25/17 02/16/19 History traMADol HCL [Ultram] 100 mg PO HS PRN 01/20/19 02/16/19 History Acetaminophen [Tylenol Arthritis] 650 mg PO BID 02/07/19 02/16/19 History Lisinopril [Zestril] 20 mg PO DAILY 02/07/19 02/16/19 History Docusate [Colace] 100 mg PO BID #20 capsule 02/14/19 Rx HYDROcodone/APAP 5-325MG [[place] 1 tab PO Q6HR PRN #10 tab 02/14/19 Rx 5-325] Allergies Allergy/AdvReac Type Severity Reaction Status Date / Time No Known Allergies Allergy Verified 02/16/19 11:11 Physical Exam Vitals: Vital Signs Temp Pulse Resp BP Pulse Ox Pulse Ox Pulse Ox 02/22/19 07:00 95 41 H 132/63 94 L 02/22/19 06:00 97 47 H 140/67 95 02/22/19 05:00 95 36 H 133/62 94 L 02/22/19 04:00 97.8 F 95 40 H 151/79 95 02/22/19 03:00 93 36 H 156/69 93 L 02/22/19 02:00 92 35 H 137/88 95 02/22/19 01:00 98 36 H 136/92 86 L 02/22/19 00:10 101 H 39 H 145/62 93 L 02/22/19 00:00 97.6 F 97 30 H 138/82 95 02/21/19 23:31 102 H 02/21/19 23:22 95 02/21/19 23:00 101 H 38 H 156/69 88 L 02/21/19 22:00 101 H 38 H 155/92 92 L 02/21/19 21:00 109 H 39 H 138/76 92 L 02/21/19 20:00 99.9 F H 149 H 41 H 149/83 96 02/21/19 19:00 133 H 36 H 133/83 92 L 02/21/19 18:00 131 H 32 H 133/79 92 L 02/21/19 17:00 116 H 24 120/93 91 L 02/21/19 16:01 98.4 F 123 H 32 H 117/72 91 L 02/21/19 15:00 98.4 F 109 H 36 H 109/69 90 L 02/21/19 14:00 142 H 36 H 141/81 90 L 02/21/19 13:00 133 H 35 H 155/80 92 L 02/21/19 12:00 100.1 F H 115 H 45 H 152/83 93 L 02/21/19 11:15 90 L 90 L 02/21/19 11:00 112 H 44 H 145/82 92 L 02/21/19 10:00 130 H 44 H 139/79 91 L 02/21/19 09:00 172 H 37 H 174/94 92 L Pulse Ox 02/22/19 07:00 02/22/19 06:00 02/22/19 05:00 02/22/19 04:00 02/22/19 03:00 02/22/19 02:00 02/22/19 01:00 02/22/19 00:10 02/22/19 00:00 02/21/19 23:31 02/21/19 23:22 02/21/19 23:00 02/21/19 22:00 02/21/19 21:00 02/21/19 20:00 02/21/19 19:00 02/21/19 18:00 02/21/19 17:00 02/21/19 16:01 02/21/19 15:00 02/21/19 14:00 02/21/19 13:00 02/21/19 12:00 02/21/19 11:15 90 L 02/21/19 11:00 02/21/19 10:00 02/21/19 09:00 Intake and Output 02/21/19 02/22/19 02/22/19 22:59 06:59 14:59 Intake Total 4606.533 6059.067 Output Total 480 1165 Balance 2417.489 2521.067 Intake: IV 1084.06 2152.4 Amino Acid 4.25%-D10w+ 100 Lytes*E* 1,000 ml @ 100 mls/hr IV .BY DURATION [facility] Rx#:[id number] Fat Emulsion 20% 250 ml @ 104.06 62.4 20.833 mls/hr IV DAILY@ 1600 [facility] Rx#:[id number] Mvi, Adult No.4 with Vit 255 765 K 10 ml Trace (Conc-1Ml/ Dose) 1 ml In Amino Acid 5%-D15w+Lytes*E* 1,000 ml @ 85 mls/hr IV .BY DURATION [facility] Rx#: [id number] Piperacillin-Tazobactam 3 100 .375 gm In Sodium Chloride 0.9% 100 ml @ 25 mls/hr IVPB Q8HR [facility] Rx# :[id number] Potassium Chloride 20 meq 100 In Water For Injection 1 100ml.bag @ 50 mls/hr IVPB Q2H [facility] Rx#: [id number] Sodium Chloride 0.9% 1, 625 1125 000 ml @ 125 mls/hr IV . Q8H [facility] Rx#:[id number] Intake, IV Titration 445.751 64.667 Amount ACETAMINOPHEN IV (For NPO 100 ) 1,000 mg In Empty Bag 1 bag @ 400 mls/hr IVPB Q6HR PRN Rx#:[id number] Amino Acid 5%-D15w+Lytes* 170 E* 1,000 ml @ 85 mls/hr IV .BY DURATION [facility] Rx#: [id number] Clevidipine Butyrate 25 61.334 64.667 mg In Empty Bag 1 bag @ 1 MG/HR 2 mls/hr IV .Q24H [facility] Rx#:[id number] Diltiazem 125 mg In 14.417 Sodium Chloride 0.9% 100 ml @ Per Protocol IV .Q0M [facility] Rx#:[id number] Potassium Chloride 20 meq 100 In Water For Injection 1 100ml.bag @ 50 mls/hr IVPB ONCE ONE Rx#: [id number] Output: Gastric Drainage 550 Urine 480 615 Other: Voiding Method Indwelling Catheter Indwelling Catheter # Bowel Movements 75 Weight 84.6 kg GENERAL EXAM: Patient is alert and oriented , sitting in the chair with the NG tube HEENT: Normocephalic. Normal reaction of pupils, equal size, normal range of extraocular motion. No erythema or exudates in the throat. NECK: No masses, no nuchal rigidity. CHEST: No chest wall deformity. LUNGS: Rales and also bronchial breathing at the bases. Could be related to atelectasis HEART: S1 and S2 normal with no audible mumurs or gallops. Regular rhythm, femorals equal on both sides.. ABDOMEN: Postoperative SKIN: No rashes CENTRAL NERVOUS SYSTEM: No focal deficits. EXTREMITIES: No cyanosis, clubbing or edema. Results 02/22/19 05:05 02/22/19 05:05 CBC 02/22/19 Range/Units 05:05 WBC 23.4 H (3.8-10.6) k/uL RBC 3.83 L (4.30-5.90) m/uL Hgb 11.8 L (13.0-17.5) gm/dL Hct 36.9 L (39.0-53.0) % Plt Count 287 (150-450) k/uL Comprehensive Metabolic Panel 02/21/19 02/21/19 02/22/19 Range/Units 13:25 18:56 05:05 Sodium 140 (137-145) mmol/L Potassium 3.6 3.5 3.4 L (3.5-5.1) mmol/L Chloride 109 H (98-107) mmol/L Carbon Dioxide 25 (22-30) mmol/L BUN 29 H (9-20) mg/dL Creatinine 0.87 (0.66-1.25) mg/dL Glucose 299 H (74-99) mg/dL Calcium 7.8 L (8.4-10.2) mg/dL Current Medications Generic Name Dose Route Start Last Admin Trade Name Freq PRN Reason Stop Dose Admin Acetaminophen 650 mg 02/14/19 21:00 02/21/19 20:16 Tylenol Tab PO Not Given BID [facility] Albuterol/Ipratropium 3 ml 02/16/19 22:05 02/21/19 23:22 Duoneb 0.5 Mg-3 Mg/3 Ml Soln INHALATION 3 ml RT-Q4H PRN Administration Shortness Of Breath Bisacodyl 10 mg 02/20/19 09:00 02/21/19 09:55 Dulcolax RECTAL 10 mg DAILY [facility] Administration Haloperidol Lactate 2 mg 02/18/19 09:59 02/18/19 10:12 Haldol IVP 2 mg Q4HR PRN Administration Agitation or Acute Psychosis Haloperidol Lactate 4 mg 02/18/19 09:58 02/18/19 14:05 Haldol IVP 4 mg Q4HR PRN Administration Agitation Heparin Sodium (Porcine) 5,000 unit 02/16/19 09:00 02/21/19 21:09 Heparin SQ 5,000 unit Q12HR [facility] Administration Hydromorphone HCl 0.5 mg 02/14/19 11:07 02/21/19 12:19 Dilaudid IVP 0.5 mg Q3HR PRN Administration Pain Hydromorphone HCl 1 mg 02/16/19 04:58 02/21/19 21:09 Dilaudid IVP 1 mg Q3HR PRN Administration Severe Pain Sodium Chloride 1,000 mls @ 125 mls/hr 02/15/19 13:00 02/22/19 05:15 Saline 0.9% IV 125 mls/hr .Q8H [facility] Administration Piperacillin Sod/Tazobactam 100 mls @ 25 mls/hr 02/17/19 00:00 02/21/19 23:40 Sod 3.375 gm/ Sodium Chloride IVPB 25 mls/hr Q8HR [facility] Administration Diltiazem HCl 125 mg/ Sodium 125 mls @ 0 mls/hr 02/18/19 01:00 02/21/19 21:10 Chloride IV 10 mg/h .Q0M [facility] 10 mls/hr Titration Protocol Per Protocol Fat Emulsion Intravenous 250 mls @ 20.833 mls/hr 02/19/19 16:00 02/21/19 16:20 Lipids 20% IV 20.833 mls/hr DAILY@1600 [facility] Administration Clevidipine 25 mg/ IV Solution 50 mls @ 2 mls/hr 02/21/19 08:45 02/22/19 05:15 IV 4 mg/hr .Q24H [facility] 8 mls/hr Administration Protocol 1 MG/HR Anidulafungin 100 mg/ Sodium 130 mls @ 84 mls/hr 02/22/19 09:00 Chloride IVPB DAILY [facility] Parenteral Vitamin Supplement 1,011 mls @ 85 mls/hr 02/21/19 16:00 02/21/19 16:19 10 ml/ Chromium/Copper/ IV 85 mls/hr Manganese/Seleni/Zn 1 ml/ .BY DURATION [facility] Administration Amino Ac/Electrol/Dextrose/ Calcium Amino Ac/Electrol/Dextrose/Calcium 1,000 mls @ 85 mls/hr 02/21/19 16:00 05:14 Clinimix E 5%-D15% Solution IV 85 mls/hr .BY DURATION [facility] Administration Acetaminophen 1,000 mg/ IV 100 mls @ 400 mls/hr 02/21/19 13:30 Solution IVPB Q6HR PRN Fever and/ or Pain Potassium Chloride 20 meq/ IV 100 mls @ 50 mls/hr 02/22/19 06:15 02/22/19 06:19 Solution IVPB 02/22/19 10:14 50 mls/hr Q2H [facility] Administration Protocol Insulin Aspart 0 unit 02/19/19 12:00 02/22/19 06:19 Novolog SQ 5 unit Q6H [facility] Administration Protocol Labetalol HCl 10 mg 02/19/19 22:30 02/21/19 15:00 Trandate IVP 10 mg Q6HR PRN Administration Hypertension Metoclopramide HCl 10 mg 02/15/19 13:00 02/22/19 05:14 Reglan IVP 10 mg Q6HR [facility] Administration Miscellaneous Information 1 each 02/21/19 05:51 Potassium Per Protocol MISCELLANE DAILY PRN Per Protocol Protocol Miscellaneous Information 1 each 02/22/19 06:11 Potassium Per Protocol MISCELLANE DAILY PRN Per Protocol Protocol Naloxone HCl 0.2 mg 02/17/19 03:39 Narcan IV Q2M PRN Opioid Reversal Ondansetron HCl 4 mg 02/14/19 08:54 02/16/19 03:15 Zofran IVP 4 mg Q8HR PRN Administration Nausea And Vomiting Pantoprazole Sodium 40 mg 02/17/19 09:00 02/21/19 09:22 Protonix IVP 40 mg DAILY [facility] Administration Simethicone 80 mg 02/15/19 11:00 02/21/19 21:10 Mylicon Drops PO 80 mg [facility] Administration Tamsulosin HCl 0.4 mg 02/16/19 08:30 02/21/19 14:57 Flomax PO Not Given [id number] [facility] Intake and Output 02/21/19 02/22/19 02/22/19 22:59 06:59 14:59 Intake Total 7899.340 3647.067 Output Total 480 1165 Balance 0546.436 1485.067 Intake: IV 1084.06 2152.4 Amino Acid 4.25%-D10w+ 100 Lytes*E* 1,000 ml @ 100 mls/hr IV .BY DURATION [facility] Rx#:[id number] Fat Emulsion 20% 250 ml @ 104.06 62.4 20.833 mls/hr IV DAILY@ 1600 [facility] Rx#:[id number] Mvi, Adult No.4 with Vit 255 765 K 10 ml Trace (Conc-1Ml/ Dose) 1 ml In Amino Acid 5%-D15w+Lytes*E* 1,000 ml @ 85 mls/hr IV .BY DURATION [facility] Rx#: [id number] Piperacillin-Tazobactam 3 100 .375 gm In Sodium Chloride 0.9% 100 ml @ 25 mls/hr IVPB Q8HR [facility] Rx# :[id number] Potassium Chloride 20 meq 100 In Water For Injection 1 100ml.bag @ 50 mls/hr IVPB Q2H [facility] Rx#: [id number] Sodium Chloride 0.9% 1, 625 1125 000 ml @ 125 mls/hr IV . Q8H [facility] Rx#:[id number] Intake, IV Titration 445.751 64.667 Amount ACETAMINOPHEN IV (For NPO 100 ) 1,000 mg In Empty Bag 1 bag @ 400 mls/hr IVPB Q6HR PRN Rx#:[id number] Amino Acid 5%-D15w+Lytes* 170 E* 1,000 ml @ 85 mls/hr IV .BY DURATION [facility] Rx#: [id number] Clevidipine Butyrate 25 61.334 64.667 mg In Empty Bag 1 bag @ 1 MG/HR 2 mls/hr IV .Q24H [facility] Rx#:[id number] Diltiazem 125 mg In 14.417 Sodium Chloride 0.9% 100 ml @ Per Protocol IV .Q0M [facility] Rx#:[id number] Potassium Chloride 20 meq 100 In Water For Injection 1 100ml.bag @ 50 mls/hr IVPB ONCE ONE Rx#: [id number] Output: Gastric Drainage 550 Urine 480 615 Other: Voiding Method Indwelling Catheter Indwelling Catheter # Bowel Movements 75 Weight 84.6 kg 02/22/19 05:05 02/22/19 05:05 Assessment and Plan (1) Paroxysmal atrial fibrillation Current Visit: Yes Status: Acute Code(s): I48.0 - PAROXYSMAL ATRIAL FIBRILLATION SNOMED Code(s): 923010176 (2) Diabetes type 2, uncontrolled Current Visit: Yes Status: Acute Code(s): E11.65 - TYPE 2 DIABETES MELLITUS WITH HYPERGLYCEMIA SNOMED Code(s): 159537300 (3) Status post Manuel fundoplication Current Visit: Yes Status: Acute Code(s): Z98.890 - OTHER SPECIFIED POSTPROCEDURAL STATES SNOMED Code(s): 993657551 Plan: We'll continue IV Cardizem. If atrial fibrillation disturbance, patient should be constricted for IV amiodarone therapy. Patient also should be considered for anticoagulation in the form of heparin. Echo to be done to assess LV function. We'll also get thyroid function studies
[2019-02-22] MEDS ORDERED: HEPARIN SODIUM,PORCINE 5,000 UNIT/ML 1 ML VIAL IV PRN (08:54)
[2019-02-22] MEDS: PIPERACILLIN-TAZOBACTAM 3.375 GM in SODIUM CHLORIDE 0.9% 100 ML IVPB SCH ×3 (08:57→23:03)
[2019-02-22] MEDS: HEPARIN SOD,PORK IN 0.45% NACL 25,000 UNIT in 0.45% NACL 1 250ML.BAG IV SCH (09:31)
[2019-02-22] MEDS: ACETAMINOPHEN TAB 325 MG TAB PO SCH ×2 (09:44→21:11)
[2019-02-22] MEDS: BISACODYL 10 MG SUPP RECTAL SCH (09:44)
[2019-02-22] MEDS: ANIDULAFUNGIN 100 MG in SODIUM CHLORIDE 0.9% 100 ML IVPB SCH (09:44)
[2019-02-22] MEDS: TAMSULOSIN 0.4 MG CAP.ER.24H PO SCH (09:45)
[2019-02-22 09:47] LABS: Partial Thromboplastin Time 26.8 sec (22.0-30.0); Prothrombin Time 10.3 sec (9.0-12.0)
[2019-02-22] MEDS: SIMETHICONE 40 MG/0.6 ML DROPS 2,000 MG/30 ML BOTTLE PO SCH ×4 (10:04→21:52)
[2019-02-22] MEDS: PANTOPRAZOLE 40 MG/10 ML VIAL IVP SCH (10:04)
--- NOTE | 2019-02-22 10:25 | P.PN ---
Subjective Progress Note Date: 02/22/19 Principal diagnosis: Small bowel perforation Patient feels about the same today. Mild shortness of breath. Tachycardia improved. White blood cell count went from 19-23.4. Abdominal pain seems slightly improved he says. Nasogastric tube remains bilious. Objective - Vital Signs Vital signs: Vital Signs Temp 97.8 F 02/22/19 04:00 Pulse 95 02/22/19 07:00 Resp 41 H 02/22/19 07:00 BP 132/63 02/22/19 07:00 Pulse Ox 94 L 02/22/19 07:00 Intake & Output 02/21/19 02/22/19 02/22/19 18:59 06:59 18:59 Intake Total 2435.831 3196.981 29.467 Output Total 875 1385 Balance 3036.549 7088.981 29.467 Weight 80.5 kg 84.6 kg Intake: IV 1920.83 2990.63 Amino Acid 4.25%-D10w+ 800 Lytes*E* 1,000 ml @ 100 mls/hr IV .BY DURATION [facility] Rx#:[id number] Fat Emulsion 20% 250 ml @ 20.83 145.63 20.833 mls/hr IV DAILY@ 1600 [facility] Rx#:[id number] Mvi, Adult No.4 with Vit 1020 K 10 ml Trace (Conc-1Ml/ Dose) 1 ml In Amino Acid 5%-D15w+Lytes*E* 1,000 ml @ 85 mls/hr IV .BY DURATION [facility] Rx#: [id number] Piperacillin-Tazobactam 3 100 100 .375 gm In Sodium Chloride 0.9% 100 ml @ 25 mls/hr IVPB Q8HR [facility] Rx# :[id number] Potassium Chloride 20 meq 100 In Water For Injection 1 100ml.bag @ 50 mls/hr IVPB Q2H [facility] Rx#: [id number] Sodium Chloride 0.9% 1, 1000 1625 000 ml @ 125 mls/hr IV . Q8H [facility] Rx#:[id number] Intake, IV Titration 515.001 206.351 29.467 Amount ACETAMINOPHEN IV (For NPO 100 ) 1,000 mg In Empty Bag 1 bag @ 400 mls/hr IVPB Q6HR PRN Rx#:[id number] Amino Acid 5%-D15w+Lytes* 85 85 E* 1,000 ml @ 85 mls/hr IV .BY DURATION [facility] Rx#: [id number] Anidulafungin 200 mg In 200 Sodium Chloride 0.9% 200 ml @ 84 mls/hr IVPB ONCE ONE Rx#:[id number] Clevidipine Butyrate 25 30.001 106.934 29.467 mg In Empty Bag 1 bag @ 1 MG/HR 2 mls/hr IV .Q24H [facility] Rx#:[id number] Diltiazem 125 mg In 14.417 Sodium Chloride 0.9% 100 ml @ Per Protocol IV .Q0M [facility] Rx#:[id number] Potassium Chloride 20 meq 100 In Water For Injection 1 100ml.bag @ 50 mls/hr IVPB ONCE ONE Rx#: [id number] Output: Gastric Drainage 550 Urine 875 835 Other: Voiding Method Indwelling Catheter Indwelling Catheter # Bowel Movements 75 - Exam Abdomen: Soft, mild distention, mild midline tenderness, dressing clean and dry - Labs CBC & Chem 7: 02/22/19 05:05 02/22/19 05:05 Labs: Abnormal Lab Results - Last 24 Hours (Table) 02/21/19 02/21/19 02/21/19 Range/Units 11:59 16:25 17:20 WBC (3.8-10.6) k/uL RBC (4.30-5.90) m/uL Hgb (13.0-17.5) gm/dL Hct (39.0-53.0) % Neutrophils # (1.3-7.7) k/uL Lymphocytes # (1.0-4.8) k/uL Potassium (3.5-5.1) mmol/L Chloride (98-107) mmol/L BUN (9-20) mg/dL Glucose (74-99) mg/dL POC Glucose (mg/dL) 249 H 217 H 211 H (75-99) mg/dL Calcium (8.4-10.2) mg/dL Phosphorus (2.5-4.5) mg/dL 02/21/19 02/22/19 02/22/19 Range/Units 23:40 05:05 05:05 WBC 23.4 H (3.8-10.6) k/uL RBC 3.83 L (4.30-5.90) m/uL Hgb 11.8 L (13.0-17.5) gm/dL Hct 36.9 L (39.0-53.0) % Neutrophils # 21.1 H (1.3-7.7) k/uL Lymphocytes # 0.8 L (1.0-4.8) k/uL Potassium 3.4 L (3.5-5.1) mmol/L Chloride 109 H (98-107) mmol/L BUN 29 H (9-20) mg/dL Glucose 299 H (74-99) mg/dL POC Glucose (mg/dL) 256 H (75-99) mg/dL Calcium 7.8 L (8.4-10.2) mg/dL Phosphorus 2.2 L (2.5-4.5) mg/dL Microbiology - Last 24 Hours (Table) 02/20/19 11:00 Urine Culture - Final Urine,Catheterized 02/20/19 11:12 Blood Culture - Preliminary Blood No Growth after 24 hours 02/20/19 11:00 Blood Culture - Preliminary Blood No Growth after 24 hours Assessment and Plan (1) Peritonitis Narrative/Plan: 78-year-old male with peritonitis related to small bowel perforation. Patient doing better at this time. Continue ICU observation. Optimize cardiac and respiratory performance. Continue antibiotics. Keep nasogastric tube to low intermittent suction. Current Visit: Yes Status: Acute Code(s): K65.9 - PERITONITIS, UNSPECIFIED SNOMED Code(s): 83242333
[2019-02-22 13:02] LABS: Glucose,Whole Blood 270 mg/dL (75-99)
[2019-02-22] MEDS: HYDROmorphone 0.5 MG/0.5 ML SYRINGE IVP PRN ×2 (13:18→23:45)
--- NOTE | 2019-02-22 16:01 | ECHOF ---
Referral Reason:Chest pain and cardiomyopathy MEASUREMENTS -------- HEIGHT: 170.2 cm WEIGHT: 72.6 kg BP: 150/70 RVIDd: 3.0 cm (< 3.3) IVSd: 1.0 cm (0.6 - 1.1) LVIDd: 4.1 cm (3.9 - 5.3) LVPWd: 0.9 cm (0.6 - 1.1) IVSs: 1.6 cm LVIDs: 2.6 cm LVPWs: 1.4 cm LA Diam: 3.2 cm (2.7 - 3.8) LAESV Index (A-L): 19.54 ml/m Ao Diam: 3.1 cm (2.0 - 3.7) AV Cusp: 2.1 cm (1.5 - 2.6) MV EXCURSION: 12.755 mm (> 18.000) MV EF SLOPE: 56 mm/s (70 - 150) EPSS: 0.5 cm MV E Ludin: 0.88 m/s MV DecT: 189 ms MV A Ludin: 1.10 m/s MV E/A Ratio: 0.80 AV maxP.21 mmHg AV meanP.20 mmHg AR PHT: 749 ms RAP: 5.00 mmHg RVSP: 41.78 mmHg TAPSE: 28.81 mm FINDINGS -------- Sinus rhythm. This was a technically adequate study. The left ventricular size is normal. Left ventricular wall thickness is normal. Overall left vent ricular systolic function is normal with, an EF between 65 - 70 %. The right ventricle is normal in size. Normal LA size by volume 22+/-6 ml/m2. The right atrium is normal in size. Interatrial and interventricular septum intact. There is mild aortic regurgitation. The mitral valve leaflets are mildly thickened. Mild mitral annular calcification present. Mild tricuspid regurgitation present. There is mild pulmonary hypertension. The right ventricular systolic pressure, as measured by Doppler, is 41.78mmHg. Trace/mild (physiologic) pulmonic regurgitation. The aortic root size is normal. Subcostals not available There is no pericardial effusion. CONCLUSIONS -------- 1. Sinus rhythm. 2. This was a technically adequate study. 3. The left ventricular size is normal. 4. Left ventricular wall thickness is normal. 5. Overall left ventricular systolic function is normal with, an EF between 65 - 70 %. 6. The right ventricle is normal in size. 7. Normal LA size by volume 22+/-6 ml/m2. 8. The right atrium is normal in size. 9. Interatrial and interventricular septum intact. 10. There is mild aortic regurgitation. 11. The mitral valve leaflets are mildly thickened. 12. Mild mitral annular calcification present. 13. Mild tricuspid regurgitation present. 14. There is mild pulmonary hypertension. 15. The right ventricular systolic pressure, as measured by Doppler, is 41.78mmHg. 16. Trace/mild (physiologic) pulmonic regurgitation. 17. The aortic root size is normal. 18. Subcostals not available 19. There is no pericardial effusion. [employer] SAL[employer] MANAGER: Shayy Garcia RDCS
[2019-02-22] MEDS: DILTIAZEM 125 MG in SODIUM CHLORIDE 0.9% 100 ML IV SCH (16:09)
[2019-02-22] MEDS: FAT EMULSION 20% 250 ML IV SCH (16:56)
[2019-02-22 17:48] LABS: Glucose,Whole Blood 298 mg/dL (75-99)
[2019-02-22] MEDS: HYDROmorphone 1 MG/ML 1 ML SYRINGE IVP PRN (18:04)
[2019-02-22] MEDS: POTASSIUM CHLORIDE 20 MEQ in WATER FOR INJECTION 1 100ML.BAG IVPB ONE (18:27)
[2019-02-22] MEDS: IPRATROPIUM-ALBUTEROL 3 ML NEB INHALATION PRN (19:02)
[2019-02-22 23:51] LABS: Glucose,Whole Blood 329 mg/dL (75-99)
[2019-02-23] MEDS: CLEVIDIPINE BUTYRATE 25 MG in EMPTY BAG 1 BAG IV SCH ×7 (00:07→18:39)
--- NOTE | 2019-02-23 00:37 | P.PN ---
Subjective Progress Note Date: 02/21/19 Principal diagnosis: Status post Manuel fundoplication patient is status post Manuel fundoplication 02/16/2019 patient is tachycardic patient abdomen is distended because of constipation grade halogenated repeat CAT scan which did not show any significant blood bowel blockage but does have significant air. Patient may benefit from medications for constipation. We'll obtain an EKG TSH. It appears to be sinus tachycardia clinically. and is in distress because of abdominal distention but able to walk around patient is hypoxic at 90% obtain a chest x-ray as well although clinically patient chest is clear. 02/17/2019 Patient is still tachycardic with heart rate in 90s. Patient is status post Manuel fundoplication on 02/14/2019. Patient is otherwise awake alert and oriented 3. Currently in the intensive care unit. Currently being continued on NG tube due ileus. Abdominal still distended. 02/18/2019 Patient seems to be confused today. Patient went into atrial fibrillation with RVR and was started on Cardizem drip. Repeat CT abdomen and pelvis showed bilateral moderate pleural effusion and bibasilar pulmonary infiltrates. New compared to previous exam. Patient was started on antibiotics no cough Zosyn. Otherwise patient's abdominal still distended. Patient is being continued on NG tube for decompression. Patient has been afebrile. WBC count slightly elevated to 10.8. No bowel movement or passing of flatus at this time. 02/19/2019 Patient is awake alert and oriented 3 today. Patient says that she did pass flatness this morning. Bowel sounds are sluggish. Complains of mild abdominal pain. No fever no chills. Heart rate is better controlled and added Imdur has been discontinued. Patient is being continued on antibiotics Zosyn. NG tube is in place with bilious drainage. 02 20 2019 Patient says that he still having abdominal pain 3 out of 10. Due to overall slow improvement and worsening leukocytosis with WBC count 17.5 today, repeat CT abdomen and pelvis was done showed increasing ascites and small bowel inflammation. No evidence of perforation. Patient was taken to walk but expiratory laparotomy and possible peritonitis Patient has been afebrile. NG tube is in place with bilious drainage. No chest pain or shortness of breath. No bowel movement. 02/21/2019 Patient says that his abdominal pain is better. Has not passed flatness. Otherwise no complaints of nausea vomiting. Patient was started on TPN. Leukocytosis is still present. Heart rate is controlled. No fever no chills. Mentation is much improved today. Current Medications reviewed. Objective - Vital Signs Vital signs: Vital Signs Temp 99.9 F H 02/21/19 20:00 Pulse 149 H 02/21/19 20:00 Resp 41 H 02/21/19 20:00 BP 149/83 02/21/19 20:00 Pulse Ox 96 02/21/19 20:00 Intake & Output 02/21/19 02/21/19 02/22/19 06:59 18:59 06:59 Intake Total 3862.43 2435.831 461.63 Output Total 1300 875 160 Balance 2562.43 1560.831 301.63 Weight 80.5 kg 80.5 kg Intake: IV 2862.43 1920.83 376.63 Amino Acid 4.25%-D10w+ 1200 800 Lytes*E* 1,000 ml @ 100 mls/hr IV .BY DURATION [facility] Rx#:[id number] Fat Emulsion 20% 250 ml @ 62.43 20.83 41.63 20.833 mls/hr IV DAILY@ 1600 [facility] Rx#:[id number] Mvi, Adult No.4 with Vit 85 K 10 ml Trace (Conc-1Ml/ Dose) 1 ml In Amino Acid 5%-D15w+Lytes*E* 1,000 ml @ 85 mls/hr IV .BY DURATION [facility] Rx#: [id number] Piperacillin-Tazobactam 3 100 100 .375 gm In Sodium Chloride 0.9% 100 ml @ 25 mls/hr IVPB Q8HR [facility] Rx# :[id number] Sodium Chloride 0.9% 1, 1500 1000 250 000 ml @ 125 mls/hr IV . Q8H [facility] Rx#:[id number] Intake, IV Titration 1000 515.001 85 Amount ACETAMINOPHEN IV (For NPO 100 ) 1,000 mg In Empty Bag 1 bag @ 400 mls/hr IVPB Q6HR [facility] Rx#:[id number] Amino Acid 4.25%-D10w+ 1000 Lytes*E* 1,000 ml @ 100 mls/hr IV .BY DURATION [facility] Rx#:[id number] Amino Acid 5%-D15w+Lytes* 85 85 E* 1,000 ml @ 85 mls/hr IV .BY DURATION [facility] Rx#: [id number] Anidulafungin 200 mg In 200 Sodium Chloride 0.9% 200 ml @ 84 mls/hr IVPB ONCE ONE Rx#:[id number] Clevidipine Butyrate 25 30.001 mg In Empty Bag 1 bag @ 1 MG/HR 2 mls/hr IV .Q24H [facility] Rx#:[id number] Potassium Chloride 20 meq 100 In Water For Injection 1 100ml.bag @ 50 mls/hr IVPB ONCE ONE Rx#: [id number] Output: Gastric Drainage 450 Urine 850 875 160 Other: Voiding Method Indwelling Catheter Indwelling Catheter Indwelling Catheter - Exam PHYSICAL EXAMINATION: GENERAL: The patient is alert and oriented x1, confused. not in any acute distress. Well developed, well nourished. HEENT: Pupils are round and equally reacting to light. EOMI. No scleral icterus. No conjunctival pallor. Normocephalic, atraumatic. No pharyngeal erythema. No thyromegaly. CARDIOVASCULAR: S1 and S2 present. No murmurs, rubs, or gallops. PULMONARY: Chest is clear to auscultation, no wheezing or crackles. ABDOMEN: minimal diffuse tenderness abdomen is distended tympanic sluggish bowel sounds. Surgical site area appears to be not infected and clean MUSCULOSKELETAL: No joint swelling or deformity. EXTREMITIES: No cyanosis, clubbing, or pedal edema. NEUROLOGICAL: Gross neurological examination did not reveal any focal deficits. SKIN: No rashes. - Labs CBC & Chem 7: 02/22/19 05:05 02/22/19 23:49 Labs: Abnormal Lab Results - Last 24 Hours (Table) 02/20/19 02/21/19 02/21/19 Range/Units 23:52 04:40 04:40 WBC 19.6 H (3.8-10.6) k/uL Neutrophils # 18.1 H (1.3-7.7) k/uL Lymphocytes # 0.4 L (1.0-4.8) k/uL Chloride 109 H (98-107) mmol/L BUN 28 H (9-20) mg/dL Glucose 284 H (74-99) mg/dL POC Glucose (mg/dL) 222 H (75-99) mg/dL Calcium 7.8 L (8.4-10.2) mg/dL 02/21/19 02/21/19 02/21/19 Range/Units 05:55 11:59 16:25 WBC (3.8-10.6) k/uL Neutrophils # (1.3-7.7) k/uL Lymphocytes # (1.0-4.8) k/uL Chloride (98-107) mmol/L BUN (9-20) mg/dL Glucose (74-99) mg/dL POC Glucose (mg/dL) 269 H 249 H 217 H (75-99) mg/dL Calcium (8.4-10.2) mg/dL 02/21/19 Range/Units 17:20 WBC (3.8-10.6) k/uL Neutrophils # (1.3-7.7) k/uL Lymphocytes # (1.0-4.8) k/uL Chloride (98-107) mmol/L BUN (9-20) mg/dL Glucose (74-99) mg/dL POC Glucose (mg/dL) 211 H (75-99) mg/dL Calcium (8.4-10.2) mg/dL Microbiology - Last 24 Hours (Table) 02/20/19 11:00 Urine Culture - Final Urine,Catheterized 02/20/19 11:12 Blood Culture - Preliminary Blood No Growth after 24 hours 02/20/19 11:00 Blood Culture - Preliminary Blood No Growth after 24 hours Assessment and Plan Assessment: - Status post Manuel fundoplication postoperative day 5 due to severe gas troesophageal reflux disease. - New onset atrial fibrillation with RVR. Currently off Cardizem drip. Cardiology is following. - Postoperative ileus. Currently on NG tube. CT abdomen and pelvis showed no evidence of obstruction. - Bilateral moderate pleural effusion and possible basilar infiltrate. - Type 2 diabetes mellitus: Sliding scale insulin hold off metformin as mentioned above -Hypertension patient blood pressure is elevated because of pain and patientis on his lisinopril -Abdominal pain mostly secondary to constipation and opiate analgesia management as per primary service. -Gastroesophageal reflux disease for which patient underwent Manuel fundoplication on proton pump inhibitor - DVT prophylaxis with heparin subcu Time with Patient: Greater than 30
--- NOTE | 2019-02-23 01:03 | P.PN ---
Subjective Progress Note Date: 02/22/19 Principal diagnosis: Status post Manuel fundoplication patient is status post Manuel fundoplication 02/16/2019 patient is tachycardic patient abdomen is distended because of constipation grade halogenated repeat CAT scan which did not show any significant blood bowel blockage but does have significant air. Patient may benefit from medications for constipation. We'll obtain an EKG TSH. It appears to be sinus tachycardia clinically. and is in distress because of abdominal distention but able to walk around patient is hypoxic at 90% obtain a chest x-ray as well although clinically patient chest is clear. 02/17/2019 Patient is still tachycardic with heart rate in 90s. Patient is status post Manuel fundoplication on 02/14/2019. Patient is otherwise awake alert and oriented 3. Currently in the intensive care unit. Currently being continued on NG tube due ileus. Abdominal still distended. 02/18/2019 Patient seems to be confused today. Patient went into atrial fibrillation with RVR and was started on Cardizem drip. Repeat CT abdomen and pelvis showed bilateral moderate pleural effusion and bibasilar pulmonary infiltrates. New compared to previous exam. Patient was started on antibiotics no cough Zosyn. Otherwise patient's abdominal still distended. Patient is being continued on NG tube for decompression. Patient has been afebrile. WBC count slightly elevated to 10.8. No bowel movement or passing of flatus at this time. 02/19/2019 Patient is awake alert and oriented 3 today. Patient says that she did pass flatness this morning. Bowel sounds are sluggish. Complains of mild abdominal pain. No fever no chills. Heart rate is better controlled and added Imdur has been discontinued. Patient is being continued on antibiotics Zosyn. NG tube is in place with bilious drainage. 02 20 2019 Patient says that he still having abdominal pain 3 out of 10. Due to overall slow improvement and worsening leukocytosis with WBC count 17.5 today, repeat CT abdomen and pelvis was done showed increasing ascites and small bowel inflammation. No evidence of perforation. Patient was taken to walk but expiratory laparotomy and possible peritonitis Patient has been afebrile. NG tube is in place with bilious drainage. No chest pain or shortness of breath. No bowel movement. 02/21/2019 Patient says that his abdominal pain is better. Has not passed flatness. Otherwise no complaints of nausea vomiting. Patient was started on TPN. Leukocytosis is still present. Heart rate is controlled. No fever no chills. Mentation is much improved today. 02/22/2019 Status post repair of small bowel perforation requiring exploratory laparotomy. Postoperative day 2. Patient is currently in the MICU. No events of chest pain or abdominal pain i ncreases improving. Continued on IV hydration and TPN. Patient has been afebrile. Otherwise patient went into A. fib today morning and was started back on Cardizem. Chest x-ray showed congestive heart. Small pleural effusions. Pelvis count is trending up to 23.4. Currently on antibiotics in Zosyn and micafungin. Current Medications reviewed. Objective - Vital Signs Vital signs: Vital Signs Temp 96.9 F L 02/22/19 16:00 Pulse 100 02/22/19 18:00 Resp 35 H 02/22/19 18:00 BP 149/71 02/22/19 18:00 Pulse Ox 90 L 02/22/19 18:00 Intake & Output 02/21/19 02/22/19 02/22/19 18:59 06:59 18:59 Intake Total 2435.831 4207.981 3901.950 Output Total 875 1385 2965 Balance 0019.140 2838.981 936.950 Weight 80.5 kg 84.6 kg Intake: IV 1920.83 2990.63 2631.6 Amino Acid 4.25%-D10w+ 800 Lytes*E* 1,000 ml @ 100 mls/hr IV .BY DURATION [facility] Rx#:[id number] Anidulafungin 100 mg In 130 Sodium Chloride 0.9% 100 ml @ 84 mls/hr IVPB DAILY [facility] Rx#:[id number] Fat Emulsion 20% 250 ml @ 20.83 145.63 41.6 20.833 mls/hr IV DAILY@ 1600 [facility] Rx#:[id number] Mvi, Adult No.4 with Vit 1020 935 K 10 ml Trace (Conc-1Ml/ Dose) 1 ml In Amino Acid 5%-D15w+Lytes*E* 1,000 ml @ 85 mls/hr IV .BY DURATION [facility] Rx#: [id number] Piperacillin-Tazobactam 3 100 100 200 .375 gm In Sodium Chloride 0.9% 100 ml @ 25 mls/hr IVPB Q8HR [facility] Rx# :[id number] Potassium Chloride 20 meq 100 200 In Water For Injection 1 100ml.bag @ 50 mls/hr IVPB Q2H [facility] Rx#: [id number] Sodium Chloride 0.9% 1, 1000 1625 1125 000 ml @ 125 mls/hr IV . Q8H [facility] Rx#:[id number] Intake, IV Titration 910.342 5348.351 1270.350 Amount ACETAMINOPHEN IV (For NPO 100 ) 1,000 mg In Empty Bag 1 bag @ 400 mls/hr IVPB Q6HR [facility] Rx#:[id number] Amino Acid 5%-D15w+Lytes* 85 85 1000 E* 1,000 ml @ 85 mls/hr IV .BY DURATION [facility] Rx#: [id number] Anidulafungin 200 mg In 200 Sodium Chloride 0.9% 200 ml @ 84 mls/hr IVPB ONCE ONE Rx#:[id number] Clevidipine Butyrate 25 30.001 106.934 92.267 mg In Empty Bag 1 bag @ 1 MG/HR 2 mls/hr IV .Q24H [facility] Rx#:[id number] Diltiazem 125 mg In 14.417 110.583 Sodium Chloride 0.9% 100 ml @ Per Protocol IV .Q0M [facility] Rx#:[id number] Heparin Sod,Pork in 0.45% 67.5 NaCl 25,000 unit In 0.45 % NaCl 1 250ml.bag @ 11. 82 UNITS/KG/HR 10 mls/hr IV .Q24H [facility] Rx#: [id number] Mvi, Adult No.4 with Vit 1011 K 10 ml Trace (Conc-1Ml/ Dose) 1 ml In Amino Acid 5%-D15w+Lytes*E* 1,000 ml @ 85 mls/hr IV .BY DURATION [facility] Rx#: [id number] Potassium Chloride 20 meq 100 In Water For Injection 1 100ml.bag @ 50 mls/hr IVPB ONCE ONE Rx#: [id number] Output: Gastric Drainage 550 850 Urine 739 670 5134 Other: Voiding Method Indwelling Catheter Indwelling Catheter Indwelling Catheter # Bowel Movements 75 - Exam PHYSICAL EXAMINATION: GENERAL: The patient is alert and oriented x1, confused. not in any acute distress. Well developed, well nourished. HEENT: Pupils are round and equally reacting to light. EOMI. No scleral icterus. No conjunctival pallor. Normocephalic, atraumatic. No pharyngeal erythema. No thyromegaly. CARDIOVASCULAR: S1 and S2 present. No murmurs, rubs, or gallops. PULMONARY: Chest is clear to auscultation, no wheezing or crackles. ABDOMEN: minimal diffuse tenderness abdomen is distended tympanic sluggish bowel sounds. Surgical site area appears to be not infected and clean MUSCULOSKELETAL: No joint swelling or deformity. EXTREMITIES: No cyanosis, clubbing, or pedal edema. NEUROLOGICAL: Gross neurological examination did not reveal any focal deficits. SKIN: No rashes. - Labs CBC & Chem 7: 02/22/19 05:05 02/22/19 23:49 Labs: Abnormal Lab Results - Last 24 Hours (Table) 02/21/19 02/22/19 02/22/19 Range/Units 23:40 05:05 05:05 WBC 23.4 H (3.8-10.6) k/uL RBC 3.83 L (4.30-5.90) m/uL Hgb 11.8 L (13.0-17.5) gm/dL Hct 36.9 L (39.0-53.0) % Neutrophils # 21.1 H (1.3-7.7) k/uL Lymphocytes # 0.8 L (1.0-4.8) k/uL APTT (22.0-30.0) sec Potassium 3.4 L (3.5-5.1) mmol/L Chloride 109 H (98-107) mmol/L BUN 29 H (9-20) mg/dL Glucose 299 H (74-99) mg/dL POC Glucose (mg/dL) 256 H (75-99) mg/dL Calcium 7.8 L (8.4-10.2) mg/dL Phosphorus 2.2 L (2.5-4.5) mg/dL 02/22/19 02/22/19 02/22/19 Range/Units 12:50 15:30 15:42 WBC (3.8-10.6) k/uL RBC (4.30-5.90) m/uL Hgb (13.0-17.5) gm/dL Hct (39.0-53.0) % Neutrophils # (1.3-7.7) k/uL Lymphocytes # (1.0-4.8) k/uL APTT 33.5 H (22.0-30.0) sec Potassium 3.4 L (3.5-5.1) mmol/L Chloride (98-107) mmol/L BUN (9-20) mg/dL Glucose (74-99) mg/dL POC Glucose (mg/dL) 270 H (75-99) mg/dL Calcium (8.4-10.2) mg/dL Phosphorus (2.5-4.5) mg/dL 02/22/19 Range/Units 17:36 WBC (3.8-10.6) k/uL RBC (4.30-5.90) m/uL Hgb (13.0-17.5) gm/dL Hct (39.0-53.0) % Neutrophils # (1.3-7.7) k/uL Lymphocytes # (1.0-4.8) k/uL APTT (22.0-30.0) sec Potassium (3.5-5.1) mmol/L Chloride (98-107) mmol/L BUN (9-20) mg/dL Glucose (74-99) mg/dL POC Glucose (mg/dL) 298 H (75-99) mg/dL Calcium (8.4-10.2) mg/dL Phosphorus (2.5-4.5) mg/dL Microbiology - Last 24 Hours (Table) 02/21/19 13:21 Blood Culture - Preliminary Blood No Growth after 24 hours 02/20/19 11:00 Blood Culture - Preliminary Blood No Growth after 48 hours 02/20/19 11:12 Blood Culture - Preliminary Blood No Growth after 48 hours Assessment and Plan Assessment: - Status post Manuel fundoplication postoperative day 5 due to severe gastroesophageal reflux disease. - New onset atrial fibrillation with RVR. Currently off Cardizem drip. Cardiology is following. - Postoperative ileus. Currently on NG tube. CT abdomen and pelvis showed no evidence of obstruction. - Bilateral moderate pleural effusion and possible basilar infiltrate. - Type 2 diabetes mellitus: Sliding scale insulin hold off metformin as mentioned above -Hypertension patient blood pressure is elevated because of pain and patientis on his lisinopril -Abdominal pain mostly secondary to constipation and opiate analgesia management as per primary service. -Gastroesophageal reflux disease for which patient underwent Manuel fundop lication on proton pump inhibitor - DVT prophylaxis with heparin subcu Time with Patient: Greater than 30
[2019-02-23] MEDS ORDERED: POTASSIUM CHLORIDE 20 MEQ in WATER FOR INJECTION 1 100ML.BAG IVPB ONE (01:20)
[2019-02-23] MEDS: INSULIN DETEMIR (LEVEMIR) 100 UNIT/ML SYR SQ SCH ×2 (01:33→19:45)
[2019-02-23] MEDS: HEPARIN SOD,PORK IN 0.45% NACL 25,000 UNIT in 0.45% NACL 1 250ML.BAG IV SCH ×2 (04:12→10:41)
[2019-02-23 04:46] LABS: Basophils # (A) 0.1 k/uL (0-0.2); Basophils % (A) 0 %; Eosinophils # (A) 0.2 k/uL (0-0.7); Eosinophils % (A) 1 %; HCT 34.1 % (39.0-53.0); Lymphocytes # (A) 0.7 k/uL (1.0-4.8); Lymphocytes % (A) 3 %; MCH 31.2 pg (25.0-35.0); MCHC 32.2 g/dL (31.0-37.0); MCV 96.9 fL (80.0-100.0); Mean Platelet Volume 8.3; Monocytes # (A) 0.6 k/uL (0-1.0); Monocytes % (A) 3 %; Neutrophils # (A) 20.7 k/uL (1.3-7.7); Neutrophils % (A) 92 %; Platelet Count 242 k/uL (150-450); RBC 3.52 m/uL (4.30-5.90); RDW 13.5 % (11.5-15.5); WBC 22.7 k/uL (3.8-10.6)
[2019-02-23 05:17] LABS: ALT 29 U/L (21-72); AST 26 U/L (17-59); African American GFR (CKD) >90 (>60 ml/min/1.73 sqM); Alkaline Phosphatase 76 U/L (38-126); Anion Gap 6 mmol/L; Blood Urea Nitrogen 28 mg/dL (9-20); Calcium 7.6 mg/dL (8.4-10.2); Carbon Dioxide 24 mmol/L (22-30); Chloride 111 mmol/L (98-107); Glucose 305 mg/dL (74-99); Phosphorus 2.7 mg/dL (2.5-4.5); Potassium 3.5 mmol/L (3.5-5.1); Sodium 141 mmol/L (137-145); Total Bilirubin 0.5 mg/dL (0.2-1.3); Total Protein 4.5 g/dL (6.3-8.2)
[2019-02-23] MEDS: 1: MVI, ADULT NO.4 WITH VIT K 10 ML, TRACE (CONC-1ML/DOSE) 1 ML in AMINO ACID 5%-D15W+LY IV SCH ×3 (05:20)
[2019-02-23] MEDS: DILTIAZEM 125 MG in SODIUM CHLORIDE 0.9% 100 ML IV SCH ×2 (05:21→15:36)
[2019-02-23] MEDS ORDERED: POTASSIUM CHLORIDE 20 MEQ in WATER FOR INJECTION 1 100ML.BAG IVPB STA (05:22)
[2019-02-23] MEDS: METOCLOPRAMIDE 5 MG/ML 2 ML VIAL IVP SCH ×4 (05:26→23:47)
[2019-02-23 05:45] LABS: Glucose,Whole Blood 287 mg/dL (75-99)
[2019-02-23] MEDS: HALOPERIDOL LACTATE 5 MG/ML 1 ML VIAL IVP PRN ×3 (05:49→23:31)
[2019-02-23] MEDS ORDERED: FUROSEMIDE 10 MG/ML 4 ML VIAL IV STA (06:21)
[2019-02-23] MEDS: SODIUM CHLORIDE 0.9% 1,000 ML IV SCH ×2 (06:26→10:42)
[2019-02-23] MEDS: INSULIN ASPART (NovoLOG) 100 UNIT/ML VIAL SQ SCH ×4 (06:31→22:22)
[2019-02-23 06:39] LABS: Glucose,Whole Blood 276 mg/dL (75-99)
--- NOTE | 2019-02-23 07:59 | PN ---
PROGRESS NOTE DATE OF SERVICE: February 23, 2019 This is a patient who was admitted back on February 16 for an elective laparoscopic Manuel fundoplication for severe GERD. He is postop day #9 from that surgery. In addition, because of ongoing abdominal discomfort, gastroparesis and ileus, the patient had exploratory laparotomy and repair of a small-bowel perforation. He is postop day #3 for that surgery. Since that, the patient has really not done very well. He has developed atrial fibrillation. Cardiology was consulted and remains on Cardizem drip a 10 mg an hour. He has had issues with high blood pressure is placed on Cleviprex for blood pressure control. In addition, he has history of diabetes mellitus, hypertension, DJD, and gastroesophageal reflux disease with previous esophageal stricture dilatation. Currently, the patient is on 15 L high flow. His IV is 0.9 at 125 mL an hour to be turned down to 20 mL an hour. He is on Cleviprex at 8 mg an hour. He is receiving heparin via weight based protocol, Cardizem drip at 10 mg an hour and PPN will peripheral parental nutrition at 85 mL an hour. We have turned his IV down to 20 mL an hour. We are going to give him Lasix 40 mg IV push as he is way ahead in fluids over the last couple of days. His chest x-ray showing fluid overload. The patient has also had some significant confusion and delirium here in the ICU. He did respond nicely to Haldol. PHYSICAL EXAMINATION: VITAL SIGNS: Current vital signs are reviewed. Temperature 97.6. Heart rate about 105 beats per minute and regular. Respiratory rate mid 20s to high 20s. Blood pressure 155/71, mean 99, and saturations are 92-93 percent on 15 L high flow. Appears confused. Mildly tachypneic. HEENT examination is grossly unremarkable. Nasal O2 in place. NECK: Supple. Full range of motion. No adenopathy. Neck veins are flat. CARDIOVASCULAR examination reveals irregular rhythm and rate. Heart rate about 105 beats per minute. Appears to be in atrial fibrillation. S1, S2 normal. Heart sounds are distant. LUNGS: Reveal coarse bilateral rhonchi. There are some crackles bilaterally. ABDOMEN is still distended a bit. Bowel sounds are not noted. He is mildly tender on palpation. EXTREMITIES are intact. Mild edema. SKIN: Without rash. NEUROLOGIC examination is difficult to assess as he is a bit confused. He does move all 4 extremities. Some of his responses are very appropriate. Microbiology including blood urine have been negative. LAB DATA: Includes a white count of 22.7, hemoglobin 11, hematocrit 34.1, platelet count 342,000. PTT is 40.6. Sodium 141, potassium 3.5, chloride 111, CO2 24, and anion gap is 6. BUN and creatinine were 20 and 0.88. Albumin 2.0. Chest x-ray in my opinion showing evidence of fluid overload with bilateral effusions and small lung volumes. Medications are reviewed. He remains on Zosyn and Eraxis for his antibiotic and antifungals therapy respectively. ASSESSMENT: 1. Postoperative day #9 status post elective laparoscopic Manuel fundoplication for severe acid reflux disease. 2. Post op day #3 status post exploratory laparotomy with repair of small-bowel perforation. 3. New onset atrial fibrillation, currently on a Cardizem drip. 4. Diabetes mellitus. 5. Hypertension. 6. Degenerative joint disease. 7. Gastroesophageal reflux disease. 8. Esophageal stricture with previous dilatation. 9. Worsening respiratory status secondary to fluid overload. 10.ICU delirium. PLAN: The patient's overall situation really has not improved dramatically. The patient is on more medications then he has been. This includes Cleviprex, IV heparin, Cardizem drip, peripheral parental nutrition and IV fluids. His oxygen requirements have increased. His I's and O's show an excess of fluid over the last couple of days. His IV will be cut back to 20 mL an hour. We will give him Lasix 40 mg IV push. His overall prognosis remains very guarded. Additional recommendations and suggestions are forthcoming. Critical care time 33 minutes. MMODL / IJN: [id number] /
[2019-02-23] MEDS: BISACODYL 10 MG SUPP RECTAL SCH (09:05)
[2019-02-23] MEDS: PIPERACILLIN-TAZOBACTAM 3.375 GM in SODIUM CHLORIDE 0.9% 100 ML IVPB SCH ×3 (09:05→23:47)
[2019-02-23] MEDS: ANIDULAFUNGIN 100 MG in SODIUM CHLORIDE 0.9% 100 ML IVPB SCH (09:05)
[2019-02-23] MEDS: PANTOPRAZOLE 40 MG/10 ML VIAL IVP SCH (09:05)
[2019-02-23] MEDS: SIMETHICONE 40 MG/0.6 ML DROPS 2,000 MG/30 ML BOTTLE PO SCH ×4 (09:07→19:45)
[2019-02-23] MEDS: TAMSULOSIN 0.4 MG CAP.ER.24H PO SCH (09:07)
[2019-02-23] MEDS: ACETAMINOPHEN TAB 325 MG TAB PO SCH ×2 (09:08→19:44)
--- NOTE | 2019-02-23 09:12 | P.PN ---
Subjective Progress Note Date: 02/23/19 This is a 78-year-old gentleman status post surgery for GI reflux disease. Subsequently, patient had a repeat surgery for ruptured a small bowel perforation. We're seeing the patient for paroxysmal atrial fibrillation. Patient was initiated on IV heparin and also IV Cardizem. Currently, patient is maintaining sinus rhythm with occasional APCs and PVCs. However, patient is developed distention of the abdomen and seemed to be in distress. Patient chest x-ray showed some right-sided effusion related to assess. Patient is getting IV Lasix also for fluid overload. Surgeons are going to evaluate him regarding his distended abdomen. From Cardec standpoint we'll continue current medical therapy Objective - Vital Signs Vital signs: Vital Signs Temp 97.9 F 02/23/19 08:00 Pulse 112 H 02/23/19 08:00 Resp 29 H 02/23/19 08:00 BP 169/73 02/23/19 08:00 Pulse Ox 92 L 02/23/19 08:00 Intake & Output 02/22/19 02/23/19 02/23/19 18:59 06:59 18:59 Intake Total 3901.950 3279.497 260 Output Total 2965 960 1135 Balance 698.665 6025.497 -875 Weight 88 kg Intake: IV 2631.6 2803.03 260 Anidulafungin 100 mg In 130 Sodium Chloride 0.9% 100 ml @ 84 mls/hr IVPB DAILY [facility] Rx#:[id number] Fat Emulsion 20% 250 ml @ 41.6 208.03 20.833 mls/hr IV DAILY@ 1600 [facility] Rx#:[id number] Mvi, Adult No.4 with Vit 935 1020 170 K 10 ml Trace (Conc-1Ml/ Dose) 1 ml In Amino Acid 5%-D15w+Lytes*E* 1,000 ml @ 85 mls/hr IV .BY DURATION [facility] Rx#: [id number] Piperacillin-Tazobactam 3 200 100 .375 gm In Sodium Chloride 0.9% 100 ml @ 25 mls/hr IVPB Q8HR [facility] Rx# :[id number] Potassium Chloride 20 meq 200 250 50 In Water For Injection 1 100ml.bag @ 50 mls/hr IVPB Q2H [facility] Rx#: [id number] Sodium Chloride 0.9% 1, 1125 1225 40 000 ml @ 20 mls/hr IV . Q24H [facility] Rx#:[id number] Intake, IV Titration 1270.350 476.467 Amount Amino Acid 5%-D15w+Lytes* 1000 E* 1,000 ml @ 85 mls/hr IV .BY DURATION [facility] Rx#: [id number] Clevidipine Butyrate 25 92.267 175.166 mg In Empty Bag 1 bag @ 1 MG/HR 2 mls/hr IV .Q24H [facility] Rx#:[id number] Diltiazem 125 mg In 110.583 125 Sodium Chloride 0.9% 100 ml @ Per Protocol IV .Q0M [facility] Rx#:[id number] Heparin Sod,Pork in 0.45% 67.5 176.301 NaCl 25,000 unit In 0.45 % NaCl 1 250ml.bag @ 11. 82 UNITS/KG/HR 10 mls/hr IV .Q24H [facility] Rx#: [id number] Output: Gastric Drainage 850 700 Urine 2115 960 435 Other: Voiding Method Indwelling Catheter Indwelling Catheter - Exam GENERAL EXAM: Patient is alert and agitated HEENT: Normocephalic. Normal reaction of pupils, equal size, normal range of extraocular motion. No erythema or exudates in the throat. NECK: No masses, no nuchal rigidity. CHEST: No chest wall deformity. LUNGS: Equal air entry with no crackles or wheeze. HEART: S1 and S2 normal with no audible mumurs or gallops. Regular rhythm, femorals equal on both sides.. ABDOMEN: Distended SKIN: No rashes CENTRAL NERVOUS SYSTEM: No focal deficits. EXTREMITIES: No cyanosis, clubbing or edema. - Labs CBC & Chem 7: 02/23/19 03:48 02/23/19 03:48 Labs: Abnormal Lab Results - Last 24 Hours (Table) 02/22/19 02/22/19 02/22/19 Range/Units 12:50 15:30 15:42 WBC (3.8-10.6) k/uL RBC (4.30-5.90) m/uL Hgb (13.0-17.5) gm/dL Hct (39.0-53.0) % Neutrophils # (1.3-7.7) k/uL Lymphocytes # (1.0-4.8) k/uL APTT 33.5 H (22.0-30.0) sec Potassium 3.4 L (3.5-5.1) mmol/L Chloride (98-107) mmol/L BUN (9-20) mg/dL Glucose (74-99) mg/dL POC Glucose (mg/dL) 270 H (75-99) mg/dL Calcium (8.4-10.2) mg/dL Total Protein (6.3-8.2) g/dL Albumin (3.5-5.0) g/dL 02/22/19 02/22/19 02/22/19 Range/Units 17:36 23:39 23:49 WBC (3.8-10.6) k/uL RBC (4.30-5.90) m/uL Hgb (13.0-17.5) gm/dL Hct (39.0-53.0) % Neutrophils # (1.3-7.7) k/uL Lymphocytes # (1.0-4.8) k/uL APTT 35.4 H (22.0-30.0) sec Potassium (3.5-5.1) mmol/L Chloride (98-107) mmol/L BUN (9-20) mg/dL Glucose (74-99) mg/dL POC Glucose (mg/dL) 298 H 329 H (75-99) mg/dL Calcium (8.4-10.2) mg/dL Total Protein (6.3-8.2) g/dL Albumin (3.5-5.0) g/dL 02/23/19 02/23/19 02/23/19 Range/Units 03:48 03:48 03:48 WBC 22.7 H (3.8-10.6) k/uL RBC 3.52 L (4.30-5.90) m/uL Hgb 11.0 L (13.0-17.5) gm/dL Hct 34.1 L (39.0-53.0) % Neutrophils # 20.7 H (1.3-7.7) k/uL Lymphocytes # 0.7 L (1.0-4.8) k/uL APTT 40.6 H (22.0-30.0) sec Potassium (3.5-5.1) mmol/L Chloride 111 H (98-107) mmol/L BUN 28 H (9-20) mg/dL Glucose 305 H (74-99) mg/dL POC Glucose (mg/dL) (75-99) mg/dL Calcium 7.6 L (8.4-10.2) mg/dL Total Protein 4.5 L (6.3-8.2) g/dL Albumin 2.0 L (3.5-5.0) g/dL 02/23/19 02/23/19 Range/Units 05:33 06:28 WBC (3.8-10.6) k/uL RBC (4.30-5.90) m/uL Hgb (13.0-17.5) gm/dL Hct (39.0-53.0) % Neutrophils # (1.3-7.7) k/uL Lymphocytes # (1.0-4.8) k/uL APTT (22.0-30.0) sec Potassium (3.5-5.1) mmol/L Chloride (98-107) mmol/L BUN (9-20) mg/dL Glucose (74-99) mg/dL POC Glucose (mg/dL) 287 H 276 H (75-99) mg/dL Calcium (8.4-10.2) mg/dL Total Protein (6.3-8.2) g/dL Albumin (3.5-5.0) g/dL Microbiology - Last 24 Hours (Table) 02/21/19 13:21 Blood Culture - Preliminary Blood No Growth after 24 hours 02/20/19 11:00 Blood Culture - Preliminary Blood No Growth after 48 hours 02/20/19 11:12 Blood Culture - Preliminary Blood No Growth after 48 hours Assessment and Plan (1) Paroxysmal atrial fibrillation Current Visit: Yes Status: Acute Code(s): I48.0 - PAROXYSMAL ATRIAL FIBRILLATION SNOMED Code(s): 380212770 (2) Diabetes type 2, uncontrolled Current Visit: Yes Status: Acute Code(s): E11.65 - TYPE 2 DIABETES MELLITUS WITH HYPERGLYCEMIA SNOMED Code(s): 429113955 (3) Status post Manuel fundoplication Current Visit: Yes Status: Acute Code(s): Z98.890 - OTHER SPECIFIED POSTPROCEDURAL STATES SNOMED Code(s): 730496029 Plan: Continue IV Cardizem and heparin. Patient also received IV Lasix. We'll follow
--- NOTE | 2019-02-23 09:28 | P.PN ---
Subjective Progress Note Date: 02/23/19 Principal diagnosis: Small bowel perforation Patient somewhat confused today. Failed his delirium screening this morning. Feels bloated. Nasogastric tube remains to low intermittent suction. Output remains bilious. 700 mL last night. No bowel function. Pain he says is about the same. White blood cell count slightly improved. Remains hypertensive and tachycardic at times. Remains on IV heparin drip. Remains on TPN Objective - Vital Signs Vital signs: Vital Signs Temp 97.9 F 02/23/19 08:00 Pulse 112 H 02/23/19 08:00 Resp 29 H 02/23/19 08:00 BP 169/73 02/23/19 08:00 Pulse Ox 92 L 02/23/19 08:00 Intake & Output 02/22/19 02/23/19 02/23/19 18:59 06:59 18:59 Intake Total 3901.950 3279.497 260 Output Total 2965 960 1135 Balance 869.642 4140.497 -875 Weight 88 kg Intake: IV 2631.6 2803.03 260 Anidulafungin 100 mg In 130 Sodium Chloride 0.9% 100 ml @ 84 mls/hr IVPB DAILY [facility] Rx#:[id number] Fat Emulsion 20% 250 ml @ 41.6 208.03 20.833 mls/hr IV DAILY@ 1600 [facility] Rx#:[id number] Mvi, Adult No.4 with Vit 935 1020 170 K 10 ml Trace (Conc-1Ml/ Dose) 1 ml In Amino Acid 5%-D15w+Lytes*E* 1,000 ml @ 85 mls/hr IV .BY DURATION [facility] Rx#: [id number] Piperacillin-Tazobactam 3 200 100 .375 gm In Sodium Chloride 0.9% 100 ml @ 25 mls/hr IVPB Q8HR [facility] Rx# :[id number] Potassium Chloride 20 meq 200 250 50 In Water For Injection 1 100ml.bag @ 50 mls/hr IVPB Q2H [facility] Rx#: [id number] Sodium Chloride 0.9% 1, 1125 1225 40 000 ml @ 20 mls/hr IV . Q24H [facility] Rx#:[id number] Intake, IV Titration 1270.350 476.467 Amount Amino Acid 5%-D15w+Lytes* 1000 E* 1,000 ml @ 85 mls/hr IV .BY DURATION [facility] Rx#: [id number] Clevidipine Butyrate 25 92.267 175.166 mg In Empty Bag 1 bag @ 1 MG/HR 2 mls/hr IV .Q24H [facility] Rx#:[id number] Diltiazem 125 mg In 110.583 125 Sodium Chloride 0.9% 100 ml @ Per Protocol IV .Q0M [facility] Rx#:[id number] Heparin Sod,Pork in 0.45% 67.5 176.301 NaCl 25,000 unit In 0.45 % NaCl 1 250ml.bag @ 11. 82 UNITS/KG/HR 10 mls/hr IV .Q24H [facility] Rx#: [id number] Output: Gastric Drainage 850 700 Urine 2115 960 435 Other: Voiding Method Indwelling Catheter Indwelling Catheter - Exam Abdomen: Soft, distended, mild diffuse tenderness, increased along midline incision, dressing intact - Labs CBC & Chem 7: 02/23/19 03:48 02/23/19 03:48 Labs: Abnormal Lab Results - Last 24 Hours (Table) 02/22/19 02/22/19 02/22/19 Range/Units 12:50 15:30 15:42 WBC (3.8-10.6) k/uL RBC (4.30-5.90) m/uL Hgb (13.0-17.5) gm/dL Hct (39.0-53.0) % Neutrophils # (1.3-7.7) k/uL Lymphocytes # (1.0-4.8) k/uL APTT 33.5 H (22.0-30.0) sec Potassium 3.4 L (3.5-5.1) mmol/L Chloride (98-107) mmol/L BUN (9-20) mg/dL Glucose (74-99) mg/dL POC Glucose (mg/dL) 270 H (75-99) mg/dL Calcium (8.4-10.2) mg/dL Total Protein (6.3-8.2) g/dL Albumin (3.5-5.0) g/dL 02/22/19 02/22/19 02/22/19 Range/Units 17:36 23:39 23:49 WBC (3.8-10.6) k/uL RBC (4.30-5.90) m/uL Hgb (13.0-17.5) gm/dL Hct (39.0-53.0) % Neutrophils # (1.3-7.7) k/uL Lymphocytes # (1.0-4.8) k/uL APTT 35.4 H (22.0-30.0) sec Potassium (3.5-5.1) mmol/L Chloride (98-107) mmol/L BUN (9-20) mg/dL Glucose (74-99) mg/dL POC Glucose (mg/dL) 298 H 329 H (75-99) mg/dL Calcium (8.4-10.2) mg/dL Total Protein (6.3-8.2) g/dL Albumin (3.5-5.0) g/dL 02/23/19 02/23/19 02/23/19 Range/Units 03:48 03:48 03:48 WBC 22.7 H (3.8-10.6) k/uL RBC 3.52 L (4.30-5.90) m/uL Hgb 11.0 L (13.0-17.5) gm/dL Hct 34.1 L (39.0-53.0) % Neutrophils # 20.7 H (1.3-7.7) k/uL Lymphocytes # 0.7 L (1.0-4.8) k/uL APTT 40.6 H (22.0-30.0) sec Potassium (3.5-5.1) mmol/L Chloride 111 H (98-107) mmol/L BUN 28 H (9-20) mg/dL Glucose 305 H (74-99) mg/dL POC Glucose (mg/dL) (75-99) mg/dL Calcium 7.6 L (8.4-10.2) mg/dL Total Protein 4.5 L (6.3-8.2) g/dL Albumin 2.0 L (3.5-5.0) g/dL 02/23/19 02/23/19 Range/Units 05:33 06:28 WBC (3.8-10.6) k/uL RBC (4.30-5.90) m/uL Hgb (13.0-17.5) gm/dL Hct (39.0-53.0) % Neutrophils # (1.3-7.7) k/uL Lymphocytes # (1.0-4.8) k/uL APTT (22.0-30.0) sec Potassium (3.5-5.1) mmol/L Chloride (98-107) mmol/L BUN (9-20) mg/dL Glucose (74-99) mg/dL POC Glucose (mg/dL) 287 H 276 H (75-99) mg/dL Calcium (8.4-10.2) mg/dL Total Protein (6.3-8.2) g/dL Albumin (3.5-5.0) g/dL Microbiology - Last 24 Hours (Table) 02/21/19 13:21 Blood Culture - Preliminary Blood No Growth after 24 hours 02/20/19 11:00 Blood Culture - Preliminary Blood No Growth after 48 hours 02/20/19 11:12 Blood Culture - Preliminary Blood No Growth after 48 hours Assessment and Plan (1) Peritonitis Narrative/Plan: Continue bowel rest with nasogastric tube decompression. Continue IV antibiotics. Continue parenteral nutrition. Increase activity as tolerates. Continue ICU care. Current Visit: Yes Status: Acute Code(s): K65.9 - PERITONITIS, UNSPECIFIED SNOMED Code(s): 55445218
[2019-02-23 12:05] LABS: Glucose,Whole Blood 259 mg/dL (75-99)
--- NOTE | 2019-02-23 12:26 | XR ---
EXAMINATION TYPE: XR chest 1V DATE OF EXAM: 02/23/2019 HISTORY: CHF/PNU. REFERENCE: Previous study dated 02/22/2019. FINDINGS: There is an NG tube in place. Its tip is in the stomach. A right internal jugular catheter is in place. Its tip is in the right atrium. There is bibasilar airspace disease. There are small, bilateral effusions. Heart size upper limits of normal. IMPRESSION: 1. BIBASILAR AIRSPACE DISEASE. 2. SMALL, BILATERAL EFFUSIONS. 3. BORDERLINE CARDIOMEGALY
[2019-02-23] MEDS: POTASSIUM CHLORIDE 20 MEQ in WATER FOR INJECTION 1 100ML.BAG IVPB SCH ×4 (13:42→22:03)
[2019-02-23] MEDS: FAT EMULSION 20% 250 ML IV SCH (16:39)
[2019-02-23] MEDS: 1: MVI, ADULT NO.4 WITH VIT K 10 ML, TRACE (CONC-1ML/DOSE) 1 ML, POTASSIUM CHLORIDE 20 M IV SCH ×4 (16:39)
[2019-02-23 18:02] LABS: Glucose,Whole Blood 259 mg/dL (75-99)
[2019-02-23] MEDS ORDERED: MELATONIN 3 MG TABLET PO ONE (19:56)
[2019-02-23 22:14] LABS: Glucose,Whole Blood 237 mg/dL (75-99)
[2019-02-23] MEDS: QUEtiapine 50 MG TAB PO SCH (22:29)
--- NOTE | 2019-02-24 00:02 | PN ---
PROGRESS NOTE DATE OF SERVICE: 02/23/2019. REASON FOR FOLLOWUP: Secondary peritonitis from a small-bowel perforation. INTERVAL HISTORY: The patient is currently afebrile. The patient is hemodynamically stable, not requiring any pressor support. The patient denies having any chest pain, shortness of breath or cough. Abdominal pain has improved. Still has NG in. No nausea. No vomiting. He did have a few bowel movements. PHYSICAL EXAMINATION: Blood pressure 102/89 with a pulse of 103. Temperature 98.1. He is 90% on 15 L high- flow oxygen. General description is an elderly male lying in bed in no distress. Respiratory system: Unlabored breathing. Decreased breath sounds in the bases. No wheeze. Heart S1, S2. Regular rate and rhythm. ABDOMEN: Soft, nondistended. No guarding or rigidity. Extremities: Some trace edema of the feet. LABS: Hemoglobin 11, white count 22.7, BUN of 28, creatinine 0.8, electrolytes have been normal. Liver enzymes are normal. Blood culture has been negative. Urine is negative. DIAGNOSTIC IMPRESSION AND PLAN: Patient with secondary peritonitis from a small , status post repair. The patient is currently covered with Eraxis and Zosyn to continue while monitoring his clinical course closely. Continue supportive care. MMODL / IJN: [id number] /
[2019-02-24] MEDS: INSULIN ASPART (NovoLOG) 100 UNIT/ML VIAL SQ SCH ×4 (00:06→18:42)
[2019-02-24 00:14] LABS: Glucose,Whole Blood 264 mg/dL (75-99)
--- NOTE | 2019-02-24 03:34 | P.PN ---
Subjective Progress Note Date: 02/23/19 Principal diagnosis: Status post Manuel fundoplication patient is status post Manuel fundoplication 02/16/2019 patient is tachycardic patient abdomen is distended because of constipation grade halogenated repeat CAT scan which did not show any significant blood bowel blockage but does have significant air. Patient may benefit from medications for constipation. We'll obtain an EKG TSH. It appears to be sinus tachycardia clinically. and is in distress because of abdominal distention but able to walk around patient is hypoxic at 90% obtain a chest x-ray as well although clinically patient chest is clear. 02/17/2019 Patient is still tachycardic with heart rate in 90s. Patient is status post Manuel fundoplication on 02/14/2019. Patient is otherwise awake alert and oriented 3. Currently in the intensive care unit. Currently being continued on NG tube due ileus. Abdominal still distended. 02/18/2019 Patient seems to be confused today. Patient went into atrial fibrillation with RVR and was started on Cardizem drip. Repeat CT abdomen and pelvis showed bilateral moderate pleural effusion and bibasilar pulmonary infiltrates. New compared to previous exam. Patient was started on antibiotics no cough Zosyn. Otherwise patient's abdominal still distended. Patient is being continued on NG tube for decompression. Patient has been afebrile. WBC count slightly elevated to 10.8. No bowel movement or passing of flatus at this time. 02/19/2019 Patient is awake alert and oriented 3 today. Patient says that she did pass flatness this morning. Bowel sounds are sluggish. Complains of mild abdominal pain. No fever no chills. Heart rate is better controlled and added Imdur has been discontinued. Patient is being continued on antibiotics Zosyn. NG tube is in place with bilious drainage. 02 20 2019 Patient says that he still having abdominal pain 3 out of 10. Due to overall slow improvement and worsening leukocytosis with WBC count 17.5 today, repeat CT abdomen and pelvis was done showed increasing ascites and small bowel inflammation. No evidence of perforation. Patient was taken to walk but expiratory laparotomy and possible peritonitis Patient has been afebrile. NG tube is in place with bilious drainage. No chest pain or shortness of breath. No bowel movement. 02/21/2019 Patient says that his abdominal pain is better. Has not passed flatness. Otherwise no complaints of nausea vomiting. Patient was started on TPN. Leukocytosis is still present. Heart rate is controlled. No fever no chills. Mentation is much improved today. 02/22/2019 Status post repair of small bowel perforation requiring exploratory laparotomy. Postoperative day 2. Patient is currently in the MICU. No events of chest pain or abdominal pain i ncreases improving. Continued on IV hydration and TPN. Patient has been afebrile. Otherwise patient went into A. fib today morning and was started back on Cardizem. Chest x-ray showed congestive heart. Small pleural effusions. Pelvis count is trending up to 23.4. Currently on antibiotics in Zosyn and micafungin. 02/23/2019 Patient is currently in MICU. Lying in the bed confused and delirious. NG tube is in place. Patient is being continued on TPN f Abdomen seems distended today. No bowel movement so far. Patient is being continued on Cardizem drip. No fever no chills otherwise. Leukocytosis slightly improved to 22.7 today. Denies chest pain. No shortness of breath. Current Medications reviewed. Objective - Vital Signs Vital signs: Vital Signs Temp 98.2 F 02/23/19 16:00 Pulse 105 H 02/23/19 18:00 Resp 22 02/23/19 18:00 BP 141/83 02/23/19 18:00 Pulse Ox 93 L 02/23/19 18:00 Intake & Output 02/22/19 02/23/19 02/23/19 18:59 06:59 18:59 Intake Total 3901.950 3279.497 1751.636 Output Total 2965 960 2670 Balance 085.121 7550.497 -918.364 Weight 88 kg Intake: IV 2631.6 2803.03 1331.6 Anidulafungin 100 mg In 130 Sodium Chloride 0.9% 100 ml @ 84 mls/hr IVPB DAILY [facility] Rx#:[id number] Fat Emulsion 20% 250 ml @ 41.6 208.03 41.6 20.833 mls/hr IV DAILY@ 1600 [facility] Rx#:[id number] Mvi, Adult No.4 with Vit 935 1020 1020 K 10 ml Trace (Conc-1Ml/ Dose) 1 ml In Amino Acid 5%-D15w+Lytes*E* 1,000 ml @ 85 mls/hr IV .BY DURATION [facility] Rx#: [id number] Piperacillin-Tazobactam 3 200 100 .375 gm In Sodium Chloride 0.9% 100 ml @ 25 mls/hr IVPB Q8HR [facility] Rx# :[id number] Potassium Chloride 20 meq 200 250 50 In Water For Injection 1 100ml.bag @ 50 mls/hr IVPB Q2H [facility] Rx#: [id number] Sodium Chloride 0.9% 1, 1125 1225 220 000 ml @ 20 mls/hr IV . Q24H [facility] Rx#:[id number] Intake, IV Titration 1270.350 476.467 420.036 Amount Amino Acid 5%-D15w+Lytes* 1000 E* 1,000 ml @ 85 mls/hr IV .BY DURATION [facility] Rx#: [id number] Clevidipine Butyrate 25 92.267 175.166 128.666 mg In Empty Bag 1 bag @ 1 MG/HR 2 mls/hr IV .Q24H [facility] Rx#:[id number] Diltiazem 125 mg In 110.583 125 102.5 Sodium Chloride 0.9% 100 ml @ Per Protocol IV .Q0M [facility] Rx#:[id number] Heparin Sod,Pork in 0.45% 67.5 176.301 88.87 NaCl 25,000 unit In 0.45 % NaCl 1 250ml.bag @ 11. 82 UNITS/KG/HR 10 mls/hr IV .Q24H [facility] Rx#: [id number] Potassium Chloride 20 meq 100 In Water For Injection 1 100ml.bag @ 50 mls/hr IVPB Q2H [facility] Rx#: [id number] Output: Gastric Drainage 850 1275 Urine 2115 960 1395 Other: Voiding Method Indwelling Catheter Indwelling Catheter Indwelling Catheter - Exam PHYSICAL EXAMINATION: GENERAL: The patient is alert and oriented x1, confused. not in any acute distr ess. Well developed, well nourished. HEENT: Pupils are round and equally reacting to light. EOMI. No scleral icterus. No conjunctival pallor. Normocephalic, atraumatic. No pharyngeal erythema. No thyromegaly. CARDIOVASCULAR: S1 and S2 present. No murmurs, rubs, or gallops. PULMONARY: Chest is clear to auscultation, no wheezing or crackles. ABDOMEN: Minimal tenderness. abdomen is distended tympanic sluggish bowel sounds. Surgical site area appears to be not infected and clean MUSCULOSKELETAL: No joint swelling or deformity. EXTREMITIES: No cyanosis, clubbing, or pedal edema. NEUROLOGICAL: Gross neurological examination did not reveal any focal deficits. SKIN: No rashes. - Labs CBC & Chem 7: 02/23/19 03:48 02/23/19 18:05 Labs: Abnormal Lab Results - Last 24 Hours (Table) 02/22/19 02/22/19 02/23/19 Range/Units 23:39 23:49 03:48 WBC 22.7 H (3.8-10.6) k/uL RBC 3.52 L (4.30-5.90) m/uL Hgb 11.0 L (13.0-17.5) gm/dL Hct 34.1 L (39.0-53.0) % Neutrophils # 20.7 H (1.3-7.7) k/uL Lymphocytes # 0.7 L (1.0-4.8) k/uL APTT 35.4 H (22.0-30.0) sec Potassium (3.5-5.1) mmol/L Chloride (98-107) mmol/L BUN (9-20) mg/dL Glucose (74-99) mg/dL POC Glucose (mg/dL) 329 H (75-99) mg/dL Calcium (8.4-10.2) mg/dL Total Protein (6.3-8.2) g/dL Albumin (3.5-5.0) g/dL 02/23/19 02/23/19 02/23/19 Range/Units 03:48 03:48 05:33 WBC (3.8-10.6) k/uL RBC (4.30-5.90) m/uL Hgb (13.0-17.5) gm/dL Hct (39.0-53.0) % Neutrophils # (1.3-7.7) k/uL Lymphocytes # (1.0-4.8) k/uL APTT 40.6 H (22.0-30.0) sec Potassium (3.5-5.1) mmol/L Chloride 111 H (98-107) mmol/L BUN 28 H (9-20) mg/dL Glucose 305 H (74-99) mg/dL POC Glucose (mg/dL) 287 H (75-99) mg/dL Calcium 7.6 L (8.4-10.2) mg/dL Total Protein 4.5 L (6.3-8.2) g/dL Albumin 2.0 L (3.5-5.0) g/dL 02/23/19 02/23/19 02/23/19 Range/Units 06:28 11:21 11:21 WBC (3.8-10.6) k/uL RBC (4.30-5.90) m/uL Hgb (13.0-17.5) gm/dL Hct (39.0-53.0) % Neutrophils # (1.3-7.7) k/uL Lymphocytes # (1.0-4.8) k/uL APTT 47.9 H (22.0-30.0) sec Potassium 3.3 L (3.5-5.1) mmol/L Chloride (98-107) mmol/L BUN (9-20) mg/dL Glucose (74-99) mg/dL POC Glucose (mg/dL) 276 H (75-99) mg/dL Calcium (8.4-10.2) mg/dL Total Protein (6.3-8.2) g/dL Albumin (3.5-5.0) g/dL 02/23/19 02/23/19 Range/Units 11:53 17:50 WBC (3.8-10.6) k/uL RBC (4.30-5.90) m/uL Hgb (13.0-17.5) gm/dL Hct (39.0-53.0) % Neutrophils # (1.3-7.7) k/uL Lymphocytes # (1.0-4.8) k/uL APTT (22.0-30.0) sec Potassium (3.5-5.1) mmol/L Chloride (98-107) mmol/L BUN (9-20) mg/dL Glucose (74-99) mg/dL POC Glucose (mg/dL) 259 H 259 H (75-99) mg/dL Calcium (8.4-10.2) mg/dL Total Protein (6.3-8.2) g/dL Albumin (3.5-5.0) g/dL Microbiology - Last 24 Hours (Table) 02/21/19 13:21 Blood Culture - Preliminary Blood No Growth after 48 hours 02/20/19 11:12 Blood Culture - Preliminary Blood No Growth after 72 hours 02/20/19 11:00 Blood Culture - Preliminary Blood No Growth after 72 hours Assessment and Plan Assessment: - Status post Manuel fundoplication due to severe gastroesophageal reflux disease. - New onset atrial fibrillation with RVR. Currently off Cardizem drip. Cardiology is following. - Postoperative ileus. Currently on NG tube. CT abdomen and pelvis showed no evidence of obstruction. Status post exploratory laparotomy. - Bilateral moderate pleural effusion and possible basilar infiltrate. - Type 2 diabetes mellitus: Sliding scale insulin hold off metformin as mentioned above -Hypertension patient blood pressure is elevated because of pain and patientis on his lisinopril -Abdominal pain mostly secondary to constipation and opiate analgesia management as per primary service. -Gastroesophageal reflux disease for which patient underwent Manuel fundoplication on proton pump inhibitor - DVT prophylaxis with heparin subcu Time with Patient: Greater than 30
[2019-02-24] MEDS: DILTIAZEM 125 MG in SODIUM CHLORIDE 0.9% 100 ML IV SCH ×2 (04:16→16:58)
[2019-02-24] MEDS: 1: MVI, ADULT NO.4 WITH VIT K 10 ML, TRACE (CONC-1ML/DOSE) 1 ML, POTASSIUM CHLORIDE 20 M IV SCH ×8 (04:44→17:03)
[2019-02-24 05:17] LABS: Basophils # (A) 0.1 k/uL (0-0.2); Basophils % (A) 0 %; Eosinophils # (A) 0.2 k/uL (0-0.7); Eosinophils % (A) 1 %; HCT 33.1 % (39.0-53.0); HGB 10.8 gm/dL (13.0-17.5); Lymphocytes # (A) 0.6 k/uL (1.0-4.8); Lymphocytes % (A) 3 %; MCHC 32.5 g/dL (31.0-37.0); MCV 95.5 fL (80.0-100.0); Mean Platelet Volume 7.8; Monocytes # (A) 0.5 k/uL (0-1.0); Monocytes % (A) 2 %; Neutrophils # (A) 17.7 k/uL (1.3-7.7); Neutrophils % (A) 92 %; Platelet Count 272 k/uL (150-450); RBC 3.47 m/uL (4.30-5.90); RDW 14.2 % (11.5-15.5); WBC 19.1 k/uL (3.8-10.6)
[2019-02-24 05:33] LABS: Albumin 2.1 g/dL (3.5-5.0); Calcium 7.6 mg/dL (8.4-10.2); Magnesium 2.1 mg/dL (1.6-2.3); Phosphorus 3.9 mg/dL (2.5-4.5); Potassium 3.6 mmol/L (3.5-5.1); Total Bilirubin 0.8 mg/dL (0.2-1.3); Total Protein 4.8 g/dL (6.3-8.2)
[2019-02-24] MEDS: METOCLOPRAMIDE 5 MG/ML 2 ML VIAL IVP SCH ×3 (05:48→20:52)
[2019-02-24 05:56] LABS: Glucose,Whole Blood 184 mg/dL (75-99)
[2019-02-24] MEDS ORDERED: POTASSIUM CHLORIDE 20 MEQ in WATER FOR INJECTION 1 100ML.BAG IVPB STA (06:54)
--- NOTE | 2019-02-24 08:04 | XR ---
EXAMINATION TYPE: XR chest 1V DATE OF EXAM: 02/24/2019 COMPARISON: Prior chest x-ray 02/23/2019 HISTORY: Congestive heart failure, pneumonia TECHNIQUE: Single frontal view of the chest is obtained. FINDINGS: Orogastric tube shows the distal tip overlying the stomach in the left upper quadrant, rig ht jugular central venous catheter shows the distal tip overlying the right atrium as on prior. Lung volumes are low and the patient is rotated. Bibasilar density persists, there is increased perihilar density. No evident pneumothorax. Heart size is stable and prominent. IMPRESSION: Correlate for congestive heart failure, basilar edema versus pneumonia, atelectasis, eff usion.
[2019-02-24] MEDS: PANTOPRAZOLE 40 MG/10 ML VIAL IVP SCH (08:49)
[2019-02-24] MEDS: ANIDULAFUNGIN 100 MG in SODIUM CHLORIDE 0.9% 100 ML IVPB SCH (08:49)
[2019-02-24] MEDS: SIMETHICONE 40 MG/0.6 ML DROPS 2,000 MG/30 ML BOTTLE PO SCH ×4 (08:49→21:22)
[2019-02-24] MEDS: HEPARIN SOD,PORK IN 0.45% NACL 25,000 UNIT in 0.45% NACL 1 250ML.BAG IV SCH (09:11)
[2019-02-24] MEDS: TAMSULOSIN 0.4 MG CAP.ER.24H PO SCH (11:11)
[2019-02-24] MEDS: ACETAMINOPHEN TAB 325 MG TAB PO SCH ×2 (11:12→20:53)
--- NOTE | 2019-02-24 11:46 | XR ---
EXAMINATION TYPE: XR abdomen 1V DATE OF EXAM: 02/24/2019 Comparison: 02/24/2019 Clinical History: 78-year-old male abdominal distention Findings: NG tube is in place. Anterior skin [place]. Colon appears relatively collapsed with a narrow linear c ontrast seen throughout the colon. A single mildly dilated small bowel loop is seen within the right mid abdomen measuring 3.7 cm. Impression: 1. Mild residual oral contrast seen throughout a collapsed colon. 2. Mildly dilated loop of small bowel in the right side of the abdomen at 3.7 cm probably relating to ileus. 3. Query a J-tube opacifying normal caliber small bowel in the right side of the abdomen. 4. Supine imaging limited for assessment of free air.
[2019-02-24 11:57] LABS: Glucose,Whole Blood 230 mg/dL (75-99)
[2019-02-24] MEDS: PIPERACILLIN-TAZOBACTAM 3.375 GM in SODIUM CHLORIDE 0.9% 100 ML IVPB SCH ×2 (12:05→20:53)
[2019-02-24] MEDS: FUROSEMIDE 10 MG/ML 2 ML VIAL IV SCH ×2 (12:07→20:53)
--- NOTE | 2019-02-24 13:01 | P.PN ---
Subjective Progress Note Date: 02/24/19 CHIEF COMPLAINT: GERD HISTORY OF PRESENT ILLNESS: 78-year-old male who is status post laparoscopic Manuel fundoplication performed on 02/14/2019. Patient is also s/p exploratory laparotomy, washout of abdomen, and enterorrhaphy due to small bowel perforation on 02/20/19. Patient with NG to LIS. Bilious drainage. 300cc thus far this morning per RN. Patient reports passing flatus. Small bowel movements overnight. Abdomen remains distended, however patient denies abdominal pain. He is receiving TPN and tolerating ice chips sparingly. WBC 19.1. PHYSICAL EXAM: VITAL SIGNS: Reviewed. GENERAL: Well-developed in no acute distress. HEENT: NG to LIS. No sclera icterus. Extraocular movements grossly intact. Moist buccal mucosa. Head is atraumatic, normocephalic. ABDOMEN: Distended. Firm. PREVENA wound vac to midline incision. NEUROLOGIC: Awake and alert. Oriented x 1. Cranial nerves II through XII grossly intact. ASSESSMENT: 1. GERD, S/P laparoscopic Manuel fundoplication 2. Acute gastric distention 3. Small bowel obstruction secondary to ileus, an unexpected outcome of surgery 4. Urinary retention, an unexpected outcome of surgery 5. S/p exploratory laparotomy, washout of abdomen, and enterorrhaphy due to small bowel perforation on 02/20/19, etiology unclear of perforation 6. Paroxysmal atrial fibrillation 7. Acute hypoxic respiratory failure requiring supplemental oxygen secondary to abdominal distention, fluid volume overload, and pleural effusions 8. Postoperative delrium, an unexpected by potential outcome of surgery and hospitalization 9. Fluid overload with pleural effusions/Acute exacerbation of diastolic heart failure EF 65-70% PLAN: 1. NPO except for ice chips 2. Continue NG tube 3. Continue antibiotics. Currently on Eraxis and Zosyn. 4. Monitor WBC 5. Continue Reglan and Dulcolax suppository daily 6. Obtain abdominal xray Nurse practitioner note has been reviewed by physician. Signing provider agrees with the documented findings, assessment, and plan of care. Objective - Vital Signs Vital signs: Vital Signs Temp 97.6 F 02/24/19 08:00 Pulse 100 02/24/19 11:00 Resp 39 H 02/24/19 11:00 BP 161/87 02/24/19 11:00 Pulse Ox 94 L 02/24/19 11:00 Intake & Output 02/23/19 02/24/19 02/24/19 18:59 06:59 18:59 Intake Total 6877.901 0217.8 180 Output Total 2670 1835 775 Balance -869.297 233.8 -595 Weight 87.9 kg 87.9 kg Intake: IV 1331.6 1693.8 180 Anidulafungin 100 mg In 100 Sodium Chloride 0.9% 100 ml @ 84 mls/hr IVPB DAILY [facility] Rx#:[id number] Fat Emulsion 20% 250 ml @ 41.6 228.8 20.833 mls/hr IV DAILY@ 1600 [facility] Rx#:[id number] Mvi, Adult No.4 with Vit 1020 1105 K 10 ml Trace (Conc-1Ml/ Dose) 1 ml In Amino Acid 5%-D15w+Lytes*E* 1,000 ml @ 85 mls/hr IV .BY DURATION [facility] Rx#: [id number] Piperacillin-Tazobactam 3 100 .375 gm In Sodium Chloride 0.9% 100 ml @ 25 mls/hr IVPB Q8HR [facility] Rx# :[id number] Potassium Chloride 20 meq 50 In Water For Injection 1 100ml.bag @ 50 mls/hr IVPB Q2H [facility] Rx#: [id number] Sodium Chloride 0.9% 1, 220 260 80 000 ml @ 20 mls/hr IV . Q24H [facility] Rx#:[id number] Intake, IV Titration 469.103 375 Amount Clevidipine Butyrate 25 177.733 50 mg In Empty Bag 1 bag @ 1 MG/HR 2 mls/hr IV .Q24H [facility] Rx#:[id number] Diltiazem 125 mg In 102.5 125 Sodium Chloride 0.9% 100 ml @ Per Protocol IV .Q0M [facility] Rx#:[id number] Heparin Sod,Pork in 0.45% 88.87 NaCl 25,000 unit In 0.45 % NaCl 1 250ml.bag @ 11. 82 UNITS/KG/HR 10 mls/hr IV .Q24H [facility] Rx#: [id number] Potassium Chloride 20 meq 100 In Water For Injection 1 100ml.bag @ 50 mls/hr IVPB Q2H [facility] Rx#: [id number] Potassium Chloride 20 meq 200 In Water For Injection 1 100ml.bag @ 50 mls/hr IVPB Q2H [facility] Rx#: [id number] Output: Gastric Drainage 1275 900 350 Urine 1395 935 425 Other: Voiding Method Indwelling Catheter Indwelling Catheter Indwelling Catheter # Bowel Movements 1 - Labs CBC & Chem 7: 02/24/19 04:38 02/24/19 04:38 Labs: Abnormal Lab Results - Last 24 Hours (Table) 02/23/19 02/23/19 02/24/19 Range/Units 17:50 22:02 00:03 WBC (3.8-10.6) k/uL RBC (4.30-5.90) m/uL Hgb (13.0-17.5) gm/dL Hct (39.0-53.0) % Neutrophils # (1.3-7.7) k/uL Lymphocytes # (1.0-4.8) k/uL APTT (22.0-30.0) sec Chloride (98-107) mmol/L BUN (9-20) mg/dL Glucose (74-99) mg/dL POC Glucose (mg/dL) 259 H 237 H 264 H (75-99) mg/dL Calcium (8.4-10.2) mg/dL Total Protein (6.3-8.2) g/dL Albumin (3.5-5.0) g/dL 02/24/19 02/24/19 02/24/19 Range/Units 04:38 04:38 04:38 WBC 19.1 H (3.8-10.6) k/uL RBC 3.47 L (4.30-5.90) m/uL Hgb 10.8 L (13.0-17.5) gm/dL Hct 33.1 L (39.0-53.0) % Neutrophils # 17.7 H (1.3-7.7) k/uL Lymphocytes # 0.6 L (1.0-4.8) k/uL APTT 51.3 H (22.0-30.0) sec Chloride 110 H (98-107) mmol/L BUN 27 H (9-20) mg/dL Glucose 175 H (74-99) mg/dL POC Glucose (mg/dL) (75-99) mg/dL Calcium 7.6 L (8.4-10.2) mg/dL Total Protein 4.8 L (6.3-8.2) g/dL Albumin 2.1 L (3.5-5.0) g/dL 02/24/19 02/24/19 Range/Units 05:44 11:46 WBC (3.8-10.6) k/uL RBC (4.30-5.90) m/uL Hgb (13.0-17.5) gm/dL Hct (39.0-53.0) % Neutrophils # (1.3-7.7) k/uL Lymphocytes # (1.0-4.8) k/uL APTT (22.0-30.0) sec Chloride (98-107) mmol/L BUN (9-20) mg/dL Glucose (74-99) mg/dL POC Glucose (mg/dL) 184 H 230 H (75-99) mg/dL Calcium (8.4-10.2) mg/dL Total Protein (6.3-8.2) g/dL Albumin (3.5-5.0) g/dL Microbiology - Last 24 Hours (Table) 02/21/19 13:21 Blood Culture - Preliminary Blood No Growth after 48 hours 02/20/19 11:12 Blood Culture - Preliminary Blood No Growth after 72 hours 02/20/19 11:00 Blood Culture - Preliminary Blood No Growth after 72 hours
[2019-02-24] MEDS: HALOPERIDOL LACTATE 5 MG/ML 1 ML VIAL IVP PRN ×2 (13:43→15:56)
--- NOTE | 2019-02-24 15:38 | P.PN ---
Subjective Progress Note Date: 02/24/19 On 02/23/2019 the patient is postop day #10 following a Manuel fundoplication. Noted the patient had a acute abdomen. Which included abdominal distention, gastroparesis with ileus and the patient required an excellent laparotomy and was found to have a 3 mm perforation of small bowel in the surgical repair was needed. The patient is postop day #4 regarding that surgery. The patient currently is in the intensive care unit. The patient is awake and alert. No significant complaints. He is receiving PPN for nutritional support. His NG tube is still attached to suction and is producing more than 300 mL of output over the past 12 hours. The patient is covered with broad-spectrum antibiotics and he is on a combination of Zosyn and Eraxis . He is hemodynamically stable. In fact the patient was requiring a combination of Cardizem drip for heart rate control regarding his atrial fibrillation l. He is also on IV heparin drip for blood pressure control. Current rhythm is sinus for now. The patient has a preserved LV function with an ejection fraction of 65%. His chest x-ray showing bilateral pleural effusion and fluid overload. Examination the patient diminished breath sound lung bases consistent with bilateral pleural effusion. No altered mentation. The white cell count is at 19.1. He was stable at 10.8. Neurologically, the patient is delirious. He was receiving Haldol [id number] for delirium and agitation. Her mom evaluation this morning, the patient seems to be calm and comfortable. Unable to take any form of oral medications for now. He remains on IV Protonix. The blood cultures since 02/21/2019 of been all negative. Objective - Vital Signs Vital signs: Vital Signs Temp 98 F 02/24/19 12:00 Pulse 102 H 02/24/19 14:00 Resp 25 H 02/24/19 14:00 BP 175/78 02/24/19 14:00 Pulse Ox 95 02/24/19 14:00 Intake & Output 02/23/19 02/24/19 02/24/19 18:59 06:59 18:59 Intake Total 8532.149 0293.8 340 Output Total 2670 1835 1875 Balance -869.297 233.8 -1535 Weight 87.9 kg 87.9 kg Intake: IV 1331.6 1693.8 240 Anidulafungin 100 mg In 100 Sodium Chloride 0.9% 100 ml @ 84 mls/hr IVPB DAILY [facility] Rx#:[id number] Fat Emulsion 20% 250 ml @ 41.6 228.8 20.833 mls/hr IV DAILY@ 1600 [facility] Rx#:[id number] Mvi, Adult No.4 with Vit 1020 1105 K 10 ml Trace (Conc-1Ml/ Dose) 1 ml In Amino Acid 5%-D15w+Lytes*E* 1,000 ml @ 85 mls/hr IV .BY DURATION [facility] Rx#: [id number] Piperacillin-Tazobactam 3 100 .375 gm In Sodium Chloride 0.9% 100 ml @ 25 mls/hr IVPB Q8HR [facility] Rx# :[id number] Potassium Chloride 20 meq 50 In Water For Injection 1 100ml.bag @ 50 mls/hr IVPB Q2H [facility] Rx#: [id number] Sodium Chloride 0.9% 1, 220 260 140 000 ml @ 20 mls/hr IV . Q24H [facility] Rx#:[id number] Intake, IV Titration 469.103 375 100 Amount Clevidipine Butyrate 25 177.733 50 mg In Empty Bag 1 bag @ 1 MG/HR 2 mls/hr IV .Q24H [facility] Rx#:[id number] Diltiazem 125 mg In 102.5 125 Sodium Chloride 0.9% 100 ml @ Per Protocol IV .Q0M [facility] Rx#:[id number] Heparin Sod,Pork in 0.45% 88.87 NaCl 25,000 unit In 0.45 % NaCl 1 250ml.bag @ 11. 82 UNITS/KG/HR 10 mls/hr IV .Q24H [facility] Rx#: [id number] Potassium Chloride 20 meq 100 In Water For Injection 1 100ml.bag @ 50 mls/hr IVPB Q2H [facility] Rx#: [id number] Potassium Chloride 20 meq 200 100 In Water For Injection 1 100ml.bag @ 50 mls/hr IVPB Q2H [facility] Rx#: [id number] Output: Gastric Drainage 1275 900 450 Urine 5772 097 5023 Other: Voiding Method Indwelling Catheter Indwelling Catheter Indwelling Catheter # Bowel Movements 1 - Exam Gen. appearance he is calm and comfortable likely distress. The patient is confused and awake and alert 1 and he has a sitter in place at the bedside. Head exam was generally normal. There was no scleral icterus or corneal arcus. Mucous membranes were moist. Neck was supple and without jugular venous distension, thyromegaly, or carotid bruits. Carotids were easily palpable bilaterally. There was no adenopathy. The patient has an NG tube in place. Lungs sounds are diminished in lung bases bilaterally with diminished breath sound in the mid and lower lung [place]. There is also dullness to percussion. Cardiac exam revealed the PMI to be normally situated and sized. The rhythm was regular and no extrasystoles were noted during several minutes of auscultation. The first and second heart sounds were normal and physiologic splitting of the second heart sound was noted. There were no murmurs, rubs, clicks, or gallops. Abdominal exam revealed normal bowel sounds. The abdomen was rather firm, non- tender, and without masses, organomegaly, or appreciable enlargement of the abdominal aorta. The patient has some slight abdominal distention. Surgical wound site over the anterior abdominal wall is clean. There is a wound VAC covering the wound surface. Bowel sounds are hypoactive and absent. No direct tenderness. No rebound tenderness. No guarding. Examination of the extremities revealed easily palpable radial, femoral and pedal pulses. There was no cyanosis, clubbing or edema. Examination of the skin revealed no evidence of significant rashes, suspicious appearing nevi or other concerning lesions. Neurologically awake 1. No cranial nerve deficits. No focal neurological deficits. Pupils are equal and reactive to light. - Labs CBC & Chem 7: 02/24/19 04:38 02/24/19 14:13 Labs: Abnormal Lab Results - Last 24 Hours (Table) 02/23/19 02/23/19 02/24/19 Range/Units 17:50 22:02 00:03 WBC (3.8-10.6) k/uL RBC (4.30-5.90) m/uL Hgb (13.0-17.5) gm/dL Hct (39.0-53.0) % Neutrophils # (1.3-7.7) k/uL Lymphocytes # (1.0-4.8) k/uL APTT (22.0-30.0) sec Chloride (98-107) mmol/L BUN (9-20) mg/dL Glucose (74-99) mg/dL POC Glucose (mg/dL) 259 H 237 H 264 H (75-99) mg/dL Calcium (8.4-10.2) mg/dL Total Protein (6.3-8.2) g/dL Albumin (3.5-5.0) g/dL 02/24/19 02/24/19 02/24/19 Range/Units 04:38 04:38 04:38 WBC 19.1 H (3.8-10.6) k/uL RBC 3.47 L (4.30-5.90) m/uL Hgb 10.8 L (13.0-17.5) gm/dL Hct 33.1 L (39.0-53.0) % Neutrophils # 17.7 H (1.3-7.7) k/uL Lymphocytes # 0.6 L (1.0-4.8) k/uL APTT 51.3 H (22.0-30.0) sec Chloride 110 H (98-107) mmol/L BUN 27 H (9-20) mg/dL Glucose 175 H (74-99) mg/dL POC Glucose (mg/dL) (75-99) mg/dL Calcium 7.6 L (8.4-10.2) mg/dL Total Protein 4.8 L (6.3-8.2) g/dL Albumin 2.1 L (3.5-5.0) g/dL 02/24/19 02/24/19 Range/Units 05:44 11:46 WBC (3.8-10.6) k/uL RBC (4.30-5.90) m/uL Hgb (13.0-17.5) gm/dL Hct (39.0-53.0) % Neutrophils # (1.3-7.7) k/uL Lymphocytes # (1.0-4.8) k/uL APTT (22.0-30.0) sec Chloride (98-107) mmol/L BUN (9-20) mg/dL Glucose (74-99) mg/dL POC Glucose (mg/dL) 184 H 230 H (75-99) mg/dL Calcium (8.4-10.2) mg/dL Total Protein (6.3-8.2) g/dL Albumin (3.5-5.0) g/dL Microbiology - Last 24 Hours (Table) 02/20/19 11:00 Blood Culture - Preliminary Blood No Growth after 96 hours 02/20/19 11:12 Blood Culture - Preliminary Blood No Growth after 96 hours 02/21/19 13:21 Blood Culture - Preliminary Blood No Growth after 48 hours Assessment and Plan Plan: 1 status post laparoscopic Manuel fundoplication. The patient is postop day #9 2 post operative small bowel obstruction/ileus, expected outcome of surgery 3 small bowel perforation, post-extremity laparotomy and repair of a perforated small bowel with 3 mm tear. The patient is postop day #4 4 NPO nutritional status and the patient has an NG tube in place 5 paroxysmal atrial fibrillation current rhythm is sinus 6 delirium 7 bilateral pleural effusion 8 leukocytosis 9 chronic normocytic anemia Plan Continue supportive care in the intensive care unit. The patient has signs of fluid overload. We'll start the patient Lasix 20 mg IV push every 12 hours. Continue IV Zosyn. Continue IV Eraxis . PPN for nutritional support. Haldol for delirium. Keep the NG tube in place. Monitored outcome. Follow-up abdominal film to rule out any significant small bowel obstruction/ileus. This will be done on a daily basis. We'll repeat chest x-ray in the morning. We'll continue to follow. Condition is still critical. The patient be kept in ICU for another 24 hours. Continue IV heparin for now.
[2019-02-24] MEDS ORDERED: POTASSIUM CHLORIDE 20 MEQ in WATER FOR INJECTION 1 100ML.BAG IVPB ONE ×2 (17:00)
[2019-02-24] MEDS: FAT EMULSION 20% 250 ML IV SCH (17:03)
--- NOTE | 2019-02-24 17:04 | P.PN ---
Subjective Progress Note Date: 02/24/19 This is a 78-year-old gentleman status post surgery for GI reflux disease. Subsequently, patient had a repeat surgery for ruptured a small bowel perforation. We're seeing the patient for paroxysmal atrial fibrillation. Patient was initiated on IV heparin and also IV Cardizem. Currently, patient is maintaining sinus rhythm with occasional APCs and PVCs. However, patient is developed distention of the abdomen and seemed to be in distress. Patient chest x-ray showed some right-sided effusion related to assess. Patient is getting IV Lasix also for fluid overload. Surgeons are going to evaluate him regarding his distended abdomen. From Cardec standpoint we'll continue current medical therapy. 02/24/2019: Patient is maintaining sinus rhythm. He is on IV Cardizem. Patient seemed to be sometimes delirious. His abdomen still distended from ileus. Patient is on IV heparin. We'll continue current medical therapy. Patient also received IV Lasix and diuresing well. Chest x-ray shows right-sided atelectasis versus fluid. Patient is have some bowel movement. We'll continue current medical therapy and will follow Objective - Vital Signs Vital signs: Vital Signs Temp 98 F 02/24/19 12:00 Pulse 102 H 02/24/19 14:00 Resp 25 H 02/24/19 14:00 BP 175/78 02/24/19 14:00 Pulse Ox 95 02/24/19 14:00 Intake & Output 02/23/19 02/24/19 02/24/19 18:59 06:59 18:59 Intake Total 4754.664 4531.8 340 Output Total 2670 1835 1875 Balance -869.297 233.8 -1535 Weight 87.9 kg 87.9 kg Intake: IV 1331.6 1693.8 240 Anidulafungin 100 mg In 100 Sodium Chloride 0.9% 100 ml @ 84 mls/hr IVPB DAILY [facility] Rx#:[id number] Fat Emulsion 20% 250 ml @ 41.6 228.8 20.833 mls/hr IV DAILY@ 1600 [facility] Rx#:[id number] Mvi, Adult No.4 with Vit 1020 1105 K 10 ml Trace (Conc-1Ml/ Dose) 1 ml In Amino Acid 5%-D15w+Lytes*E* 1,000 ml @ 85 mls/hr IV .BY DURATION [facility] Rx#: [id number] Piperacillin-Tazobactam 3 100 .375 gm In Sodium Chloride 0.9% 100 ml @ 25 mls/hr IVPB Q8HR [facility] Rx# :[id number] Potassium Chloride 20 meq 50 In Water For Injection 1 100ml.bag @ 50 mls/hr IVPB Q2H [facility] Rx#: [id number] Sodium Chloride 0.9% 1, 220 260 140 000 ml @ 20 mls/hr IV . Q24H [facility] Rx#:[id number] Intake, IV Titration 469.103 375 100 Amount Clevidipine Butyrate 25 177.733 50 mg In Empty Bag 1 bag @ 1 MG/HR 2 mls/hr IV .Q24H [facility] Rx#:[id number] Diltiazem 125 mg In 102.5 125 Sodium Chloride 0.9% 100 ml @ Per Protocol IV .Q0M [facility] Rx#:[id number] Heparin Sod,Pork in 0.45% 88.87 NaCl 25,000 unit In 0.45 % NaCl 1 250ml.bag @ 11. 82 UNITS/KG/HR 10 mls/hr IV .Q24H [facility] Rx#: [id number] Potassium Chloride 20 meq 100 In Water For Injection 1 100ml.bag @ 50 mls/hr IVPB Q2H [facility] Rx#: [id number] Potassium Chloride 20 meq 200 100 In Water For Injection 1 100ml.bag @ 50 mls/hr IVPB Q2H [facility] Rx#: [id number] Output: Gastric Drainage 1275 900 450 Urine 8124 448 3994 Other: Voiding Method Indwelling Catheter Indwelling Catheter Indwelling Catheter # Bowel Movements 1 - Exam GENERAL EXAM: Patient is alert and agitated HEENT: Normocephalic. Normal reaction of pupils, equal size, normal range of extraocular motion. No erythema or exudates in the throat. NECK: No masses, no nuchal rigidity. CHEST: No chest wall deformity. LUNGS: Equal air entry with no crackles or wheeze. HEART: S1 and S2 normal with no audible mumurs or gallops. Regular rhythm, femorals equal on both sides.. ABDOMEN: Distended SKIN: No rashes CENTRAL NERVOUS SYSTEM: No focal deficits. EXTREMITIES: No cyanosis, clubbing or edema. - Labs CBC & Chem 7: 02/24/19 04:38 02/24/19 14:13 Labs: Abnormal Lab Results - Last 24 Hours (Table) 02/23/19 02/23/19 02/24/19 Range/Units 17:50 22:02 00:03 WBC (3.8-10.6) k/uL RBC (4.30-5.90) m/uL Hgb (13.0-17.5) gm/dL Hct (39.0-53.0) % Neutrophils # (1.3-7.7) k/uL Lymphocytes # (1.0-4.8) k/uL APTT (22.0-30.0) sec Chloride (98-107) mmol/L BUN (9-20) mg/dL Glucose (74-99) mg/dL POC Glucose (mg/dL) 259 H 237 H 264 H (75-99) mg/dL Calcium (8.4-10.2) mg/dL Total Protein (6.3-8.2) g/dL Albumin (3.5-5.0) g/dL 02/24/19 02/24/19 02/24/19 Range/Units 04:38 04:38 04:38 WBC 19.1 H (3.8-10.6) k/uL RBC 3.47 L (4.30-5.90) m/uL Hgb 10.8 L (13.0-17.5) gm/dL Hct 33.1 L (39.0-53.0) % Neutrophils # 17.7 H (1.3-7.7) k/uL Lymphocytes # 0.6 L (1.0-4.8) k/uL APTT 51.3 H (22.0-30.0) sec Chloride 110 H (98-107) mmol/L BUN 27 H (9-20) mg/dL Glucose 175 H (74-99) mg/dL POC Glucose (mg/dL) (75-99) mg/dL Calcium 7.6 L (8.4-10.2) mg/dL Total Protein 4.8 L (6.3-8.2) g/dL Albumin 2.1 L (3.5-5.0) g/dL 02/24/19 02/24/19 Range/Units 05:44 11:46 WBC (3.8-10.6) k/uL RBC (4.30-5.90) m/uL Hgb (13.0-17.5) gm/dL Hct (39.0-53.0) % Neutrophils # (1.3-7.7) k/uL Lymphocytes # (1.0-4.8) k/uL APTT (22.0-30.0) sec Chloride (98-107) mmol/L BUN (9-20) mg/dL Glucose (74-99) mg/dL POC Glucose (mg/dL) 184 H 230 H (75-99) mg/dL Calcium (8.4-10.2) mg/dL Total Protein (6.3-8.2) g/dL Albumin (3.5-5.0) g/dL Microbiology - Last 24 Hours (Table) 02/21/19 13:21 Blood Culture - Preliminary Blood No Growth after 72 hours 02/20/19 11:00 Blood Culture - Preliminary Blood No Growth after 96 hours 02/20/19 11:12 Blood Culture - Preliminary Blood No Growth after 96 hours Assessment and Plan (1) Paroxysmal atrial fibrillation Current Visit: Yes Status: Acute Code(s): I48.0 - PAROXYSMAL ATRIAL FIBRILLATION SNOMED Code(s): 630909950 (2) Diabetes type 2, uncontrolled Current Visit: Yes Status: Acute Code(s): E11.65 - TYPE 2 DIABETES MELLITUS WITH HYPERGLYCEMIA SNOMED Code(s): 247925956 (3) Status post Manuel fundoplication Current Visit: Yes Status: Acute Code(s): Z98.890 - OTHER SPECIFIED POSTPROCEDURAL STATES SNOMED Code(s): 195293932 Plan: Continue current medical therapy. We will follow.
[2019-02-24 17:17] LABS: Glucose,Whole Blood 119 mg/dL (75-99)
[2019-02-24] MEDS: BISACODYL 10 MG SUPP RECTAL SCH (17:21)
[2019-02-24] MEDS: SODIUM CHLORIDE 0.9% 1,000 ML IV SCH (17:25)
--- NOTE | 2019-02-24 18:21 | PN ---
PROGRESS NOTE DATE OF SERVICE: 02/24/2019. REASON FOR FOLLOWUP: Secondary peritonitis from small-bowel perforation. INTERVAL HISTORY: The patient is currently afebrile. The patient is hemodynamically stable. Not requiring any pressor support. The patient is slightly sleepy, lethargic though denies any chest pain. Breathing is borderline. No nausea, no vomiting. He was noted to have some abdominal distention. However, the patient did have a bowel movements and did have an output in his NG. No other changes reported by the nursing staff. PHYSICAL EXAMINATION: Blood pressure is 175/78 with a pulse of 102, temperature 98. He is 95% on 8 L high- flow oxygen. General description is an elderly male lying in bed in no distress. Respiratory system: Unlabored breathing with decreased breath sounds in the base. No wheeze. Heart S1, S2. Regular rate and rhythm. Abdomen is soft, mild distended. No guarding. No rigidity. LABS: Hemoglobin is 10.1, white count 98.1. BUN of 27, creatinine 0.95. Blood culture has been negative. DIAGNOSTIC IMPRESSION AND PLAN: Patient with secondary peritonitis from perforated small bowel. The patient is currently afebrile. White count has shown a downward trend. Culture has been negative so far. Broadly covered with Zosyn and Eraxis to continue while monitoring clinical course closely. Family at the bedside. Questions were answered. MMODL / IJN: [id number] /
[2019-02-24 20:45] LABS: Glucose,Whole Blood 209 mg/dL (75-99)
[2019-02-24] MEDS: INSULIN DETEMIR (LEVEMIR) 100 UNIT/ML SYR SQ SCH (20:52)
[2019-02-24] MEDS: QUEtiapine 50 MG TAB PO SCH (20:53)
[2019-02-25 00:47] LABS: Glucose,Whole Blood 247 mg/dL (75-99)
[2019-02-25] MEDS: METOCLOPRAMIDE 5 MG/ML 2 ML VIAL IVP SCH ×4 (00:47→17:29)
[2019-02-25] MEDS: INSULIN ASPART (NovoLOG) 100 UNIT/ML VIAL SQ SCH ×5 (00:47→23:05)
[2019-02-25] MEDS: HEPARIN SOD,PORK IN 0.45% NACL 25,000 UNIT in 0.45% NACL 1 250ML.BAG IV SCH (00:48)
[2019-02-25] MEDS: HALOPERIDOL LACTATE 5 MG/ML 1 ML VIAL IVP PRN (00:48)
[2019-02-25] MEDS: PIPERACILLIN-TAZOBACTAM 3.375 GM in SODIUM CHLORIDE 0.9% 100 ML IVPB SCH ×3 (04:45→19:51)
[2019-02-25 05:13] LABS: Basophils % (A) 0 %; Eosinophils # (A) 0.2 k/uL (0-0.7); Eosinophils % (A) 2 %; HCT 33.8 % (39.0-53.0); Lymphocytes # (A) 0.5 k/uL (1.0-4.8); Lymphocytes % (A) 3 %; MCH 31.1 pg (25.0-35.0); MCHC 32.7 g/dL (31.0-37.0); MCV 95.2 fL (80.0-100.0); Mean Platelet Volume 7.9; Monocytes # (A) 0.4 k/uL (0-1.0); Monocytes % (A) 3 %; Neutrophils # (A) 15.4 k/uL (1.3-7.7); Neutrophils % (A) 92 %; Platelet Count 311 k/uL (150-450); RBC 3.55 m/uL (4.30-5.90); RDW 14.6 % (11.5-15.5); WBC 16.7 k/uL (3.8-10.6)
[2019-02-25 05:29] LABS: Albumin 2.2 g/dL (3.5-5.0); Calcium 7.8 mg/dL (8.4-10.2); Magnesium 2.2 mg/dL (1.6-2.3); Phosphorus 3.8 mg/dL (2.5-4.5); Potassium 3.6 mmol/L (3.5-5.1)
[2019-02-25] MEDS: 1: MVI, ADULT NO.4 WITH VIT K 10 ML, TRACE (CONC-1ML/DOSE) 1 ML, POTASSIUM CHLORIDE 20 M IV SCH ×8 (06:40→20:08)
[2019-02-25 06:47] LABS: Glucose,Whole Blood 138 mg/dL (75-99)
[2019-02-25] MEDS ORDERED: POTASSIUM CHLORIDE 10 MEQ in WATER FOR INJECTION 1 100ML.BAG IVPB SCH (07:00)
[2019-02-25] MEDS ORDERED: POTASSIUM CHLORIDE 20 MEQ in WATER FOR INJECTION 1 100ML.BAG IVPB ONE ×2 (08:00→19:00)
--- NOTE | 2019-02-25 08:04 | XR ---
EXAMINATION TYPE: XR abdomen 1V DATE OF EXAM: 02/25/2019 COMPARISON: 02/24/2019 HISTORY: Abdominal distention TECHNIQUE: One view abdominal series FINDINGS: Catheter overlies the abdomen. Surgical everton overlying the abdomen are seen. There is contrast inv olving the colon. Density overlying the pubic rami likely related to retained contrast although osseo us lesion not excluded. Arthropathy of the hips. Bowel gas pattern nonspecific. IMPRESSION: 1. Nonspecific abdomen with retained contrast in colon. Density overlying the left pubic ramus likely related to contrast within the rectum.
--- NOTE | 2019-02-25 08:09 | XR ---
EXAMINATION TYPE: XR chest 1V DATE OF EXAM: 02/25/2019 COMPARISON: 02/24/2019 HISTORY: Shortness of breath TECHNIQUE: Single frontal view of the chest is obtained. FINDINGS: The heart is enlarged and there is bilateral consolidation no overt failure. Heart size st able. Prominence of the right hilum noted. NG tube courses in the left upper quadrant. Hypertrophic a nd degenerative change of the spine. Arthropathy of the shoulders. IMPRESSION: Bilateral infiltrate and pleural effusion correlate for pneumonia otherwise consider CHF . There is right hilar soft tissue prominence underlying mass or adenopathy not excluded.
[2019-02-25] MEDS: SIMETHICONE 40 MG/0.6 ML DROPS 2,000 MG/30 ML BOTTLE PO SCH ×4 (09:04→22:50)
[2019-02-25] MEDS: PANTOPRAZOLE 40 MG/10 ML VIAL IVP SCH (09:04)
[2019-02-25] MEDS: FUROSEMIDE 10 MG/ML 2 ML VIAL IV SCH ×2 (09:05→22:49)
[2019-02-25] MEDS: BISACODYL 10 MG SUPP RECTAL SCH (09:05)
[2019-02-25] MEDS: TAMSULOSIN 0.4 MG CAP.ER.24H PO SCH (09:05)
[2019-02-25] MEDS: ACETAMINOPHEN TAB 325 MG TAB PO SCH ×2 (09:05→22:49)
[2019-02-25] MEDS: ANIDULAFUNGIN 100 MG in SODIUM CHLORIDE 0.9% 100 ML IVPB SCH (09:10)
--- NOTE | 2019-02-25 11:55 | P.PN ---
Subjective Progress Note Date: 02/25/19 On 02/25/2019, the patient is postop day #11. The patient underwent a Manuel fundoplication. Noted the patient had a acute abdomen. Which included abdominal distention, gastroparesis with ileus and the patient required an excellent laparotomy and was found to have a 3 mm perforation of small bowel in the surgical repair was needed. The patient is postop day #5 regarding that surgery. The patient currently is in the intensive care unit. The patient is still has an NG tube in place. He is receiving PPN for nutritional support. Doppler from the NG tube is quite extensive almost a liter over the past 24 hours. Abdomen is distended. There is some ascites. The wound is dry clean and intact. A wound VAC is applied over the anterior abdominal wound. No fever. No chills. He remains on a combination of Eraxis and IV Zosyn. Currently in a normal sinus rhythm. Cardizem running at 10 mg an hour for rate control. Started on IV heparin regarding atrial fibrillation. Receiving Dilaudid for pain control. He is on Levemir insulin 15 units at bedtime along with his vascular coverage. He is in a negative fluid balance as the patient is being diuresed with IV Lasix. Receiving Lasix 20 mg IV push every 12 hours in a negative fluid balance is being achieved. He still has bilateral lower lobe pleural effusions. He still has some ongoing edema in lower extremities. Blood cultures are negative. No other significant events overnight. Neurologically more oriented and alert compared to yesterday. Note that echocardiogram showed a preserved LV function with an ejection fraction of 65%. Objective - Vital Signs Vital signs: Vital Signs Temp 99.1 F 02/25/19 08:01 Pulse 97 02/25/19 11:00 Resp 38 H 02/25/19 11:00 BP 137/78 02/25/19 11:00 Pulse Ox 94 L 02/25/19 11:00 Intake & Output 02/24/19 02/25/19 02/25/19 18:59 06:59 18:59 Intake Total 3802.66 9614.350 8435 Output Total 3175 2655 775 Balance 627.66 -675.033 335 Weight 87.9 kg 85.4 kg Intake: IV 1296.66 1561.33 1010 Anidulafungin 100 mg In 100 100 Sodium Chloride 0.9% 100 ml @ 84 mls/hr IVPB DAILY [facility] Rx#:[id number] Diltiazem 125 mg In 110 10 Sodium Chloride 0.9% 100 ml @ Per Protocol IV .Q0M [facility] Rx#:[id number] Fat Emulsion 20% 250 ml @ 41.66 228.83 20.833 mls/hr IV DAILY@ 1600 [facility] Rx#:[id number] Piperacillin-Tazobactam 3 37.5 .375 gm In Sodium Chloride 0.9% 100 ml @ 25 mls/hr IVPB Q8HR [facility] Rx# :[id number] Sodium Chloride 0.9% 1, 220 180 560 000 ml @ 20 mls/hr IV . Q24H [facility] Rx#:[id number] TPN 935 1005 340 Intake, IV Titration 2506 358.637 100 Amount Diltiazem 125 mg In 125 Sodium Chloride 0.9% 100 ml @ Per Protocol IV .Q0M [facility] Rx#:[id number] Heparin Sod,Pork in 0.45% 250 346.137 NaCl 25,000 unit In 0.45 % NaCl 1 250ml.bag @ 11. 82 UNITS/KG/HR 10 mls/hr IV .Q24H [facility] Rx#: [id number] Mvi, Adult No.4 with Vit 1021 K 10 ml Trace (Conc-1Ml/ Dose) 1 ml Potassium Chloride 20 meq In Amino Acid 5%-D15w+Lytes*E* 1, 000 ml @ 85 mls/hr IV .BY DURATION [facility] Rx#: [id number] Piperacillin-Tazobactam 3 12.5 .375 gm In Sodium Chloride 0.9% 100 ml @ 25 mls/hr IVPB Q8H [facility] Rx#: [id number] Potassium Chloride 20 meq 1010 In Amino Acid 5%-D15w+ Lytes*E* 1,000 ml @ 85 mls/hr IV .BY DURATION [facility] Rx#:[id number] Potassium Chloride 20 meq 100 In Water For Injection 1 100ml.bag @ 50 mls/hr IVPB ONCE ONE Rx#: [id number] Potassium Chloride 20 meq 100 In Water For Injection 1 100ml.bag @ 50 mls/hr IVPB Q2H [facility] Rx#: [id number] Other 60 Output: Gastric Drainage 750 1000 350 Urine 2425 1655 425 Other: Voiding Method Indwelling Catheter Indwelling Catheter Indwelling Catheter # Bowel Movements 1 - Exam Gen. appearance he is calm and comfortable likely distress. The patient is confused and awake and alert 3 and he has a sitter in place at the bedside. Head exam was generally normal. There was no scleral icterus or corneal arcus. Mucous membranes were moist. Neck was supple and without jugular venous distension, thyromegaly, or carotid bruits. Carotids were easily palpable bilaterally. There was no adenopathy. The patient has an NG tube in place. Lungs sounds are diminished in lung bases bilaterally with diminished breath sound in the mid and lower lung [place]. There is also dullness to percussion. Cardiac exam revealed the PMI to be normally situated and sized. The rhythm was regular and no extrasystoles were noted during several minutes of auscultation. The first and second heart sounds were normal and physiologic splitting of the second heart sound was noted. There were no murmurs, rubs, clicks, or gallops. Abdominal exam revealed normal bowel sounds. The abdomen was rather firm, non- tender, and without masses, organomegaly, or appreciable enlargement of the abdominal aorta. The patient has some slight abdominal distention. Surgical wound site over the anterior abdominal wall is clean. There is a wound VAC covering the wound surface. Bowel sounds are hypoactive and absent. No direct tenderness. No rebound tenderness. No guarding. Examination of the extremities revealed easily palpable radial, femoral and pedal pulses. There was no cyanosis, clubbing or edema. Examination of the skin revealed no evidence of significant rashes, suspicious appearing nevi or other concerning lesions. Neurologically awake 3. No cranial nerve deficits. No focal neurological deficits. Pupils are equal and reactive to light. - Labs CBC & Chem 7: 02/25/19 04:31 02/25/19 04:31 Labs: Abnormal Lab Results - Last 24 Hours (Table) 02/24/19 02/24/19 02/24/19 Range/Units 11:46 17:06 20:32 WBC (3.8-10.6) k/uL RBC (4.30-5.90) m/uL Hgb (13.0-17.5) gm/dL Hct (39.0-53.0) % Neutrophils # (1.3-7.7) k/uL Lymphocytes # (1.0-4.8) k/uL APTT (22.0-30.0) sec BUN (9-20) mg/dL Glucose (74-99) mg/dL POC Glucose (mg/dL) 230 H 119 H 209 H (75-99) mg/dL Plasma Lactic Acid Timothy (0.7-2.0) mmol/L Calcium (8.4-10.2) mg/dL Total Protein (6.3-8.2) g/dL Albumin (3.5-5.0) g/dL 02/25/19 02/25/19 02/25/19 Range/Units 00:35 04:31 04:31 WBC 16.7 H (3.8-10.6) k/uL RBC 3.55 L (4.30-5.90) m/uL Hgb 11.0 L (13.0-17.5) gm/dL Hct 33.8 L (39.0-53.0) % Neutrophils # 15.4 H (1.3-7.7) k/uL Lymphocytes # 0.5 L (1.0-4.8) k/uL APTT (22.0-30.0) sec BUN 25 H (9-20) mg/dL Glucose 197 H (74-99) mg/dL POC Glucose (mg/dL) 247 H (75-99) mg/dL Plasma Lactic Acid Timothy (0.7-2.0) mmol/L Calcium 7.8 L (8.4-10.2) mg/dL Total Protein 5.0 L (6.3-8.2) g/dL Albumin 2.2 L (3.5-5.0) g/dL 02/25/19 02/25/19 02/25/19 Range/Units 04:31 04:31 06:35 WBC (3.8-10.6) k/uL RBC (4.30-5.90) m/uL Hgb (13.0-17.5) gm/dL Hct (39.0-53.0) % Neutrophils # (1.3-7.7) k/uL Lymphocytes # (1.0-4.8) k/uL APTT 41.5 H (22.0-30.0) sec BUN (9-20) mg/dL Glucose (74-99) mg/dL POC Glucose (mg/dL) 138 H (75-99) mg/dL Plasma Lactic Acid Timothy 2.3 H* (0.7-2.0) mmol/L Calcium (8.4-10.2) mg/dL Total Protein (6.3-8.2) g/dL Albumin (3.5-5.0) g/dL Microbiology - Last 24 Hours (Table) 02/21/19 13:21 Blood Culture - Preliminary Blood No Growth after 72 hours 02/20/19 11:00 Blood Culture - Preliminary Blood No Growth after 96 hours 02/20/19 11:12 Blood Culture - Preliminary Blood No Growth after 96 hours Assessment and Plan Plan: 1 status post laparoscopic Manuel fundoplication. The patient is postop day #11 2 post operative small bowel obstruction/ileus, expected outcome of surgery 3 small bowel perforation, post-extremity laparotomy and repair of a perforated small bowel with 3 mm tear. The patient is postop day #5 4 NPO nutritional status and the patient has an NG tube in place 5 paroxysmal atrial fibrillation current rhythm is sinus 6 delirium, improving with Haldol and currently is more alert and appropriate. 7 bilateral pleural effusion with extensive anasarca and volume overload and currently the patient IV Lasix 8 leukocytosis, improved compared to yesterday and the white cell count is down to 16.7 9 chronic normocytic anemia Plan Continue supportive care in the intensive care unit. The patient has signs of fluid overload. continuevLasix 20 mg IV push every 12 hours. Continue IV Zosyn. Continue IV Eraxis . PPN for nutritional support. Haldol for delirium. Keep the NG tube in place. Monitored outcome. Follow-up abdominal film which did not show any significant ileus. The patient has some nonspecific bowel p attern. Consider repeating the CAT scan of the abdomen. This was discussed with neurosurgery. We'll continue to follow make further recommendations based on progress.
--- NOTE | 2019-02-25 12:31 | CDI ---
Persistent Documentation Clarification Form Date: 02/25/2019 11:54:10 AM From: Radha Simmons RN, CCDS Admit Date: 02/16/2019 9:23:00 AM Patient Name: Calvin Davies Visit Number: [id number] Discharge Date: ATTENTION: The Clinical Documentation Specialists (CDI) and [facility] Coding Staff appreciate your assistance in clarifying documentation. Please respond to the clarification below the line at the bottom and electronically sign. The CDI & [facility] Coding staff will review the response and follow-up if needed. Please note: Queries are made part of the Legal Health Record. If you have any questions, please contact the author of this message via ITS. Dr. Bridgette Muniz Atrial Fibrillation is documented in the ongoing progress notes starting on 02/18/19 and further clarification is needed. History/Risk Factors: Diabetes Mellitus, GERD, Hypertension Clinical Indicators: 78-year-old male who present o 02/14/19 for elective Laparoscopic Manuel fundoplication. On 02/18/19 postop day #4 he developed atrial fibrillation with RVR and was started on a Cardizem drip after 7.5 mg bolus. He converted back into sinus rhythm. On 02/19/19 he went back into atrial fibrillation. EKG/telemetry: Atrial fibrillation wit RVR rate 130bpm Vital signs 137/73 130 28 02/20/19 Patient was taken to surgery for an exploratory laparotomy, washout of abdomen and Enterorrhaphy for a small bowel perforation. 02/22/19 Cardiology consult has noted patient has been having intermittent atrial fibrillation treated with IV Cardizem. Treatment: Telemetry monitoring Cardizem drip Heparin drip In your professional opinion, please clarify if the paroxysmal atrial fibrillation is: An expected port-procedure or post-surgical condition An unexpected port-procedural or post-surgical condition related to the patient underlying medical conditions or co morbidities. Other, Please specify Clinical unable to determine (Last Revision: September 2017) MTDD
[2019-02-25 12:39] LABS: Glucose,Whole Blood 179 mg/dL (75-99)
--- NOTE | 2019-02-25 13:23 | P.PN ---
Subjective Progress Note Date: 02/25/19 CHIEF COMPLAINT: GERD HISTORY OF PRESENT ILLNESS: 78-year-old male who is status post laparoscopic Manuel fundoplication performed on 02/14/2019. Patient is also s/p exploratory laparotomy, washout of abdomen, and enterorrhaphy due to small bowel perforation on 02/20/19. Patient with NG to LIS. Drainage appears lead ingot molder in color today. Nursing reports 200cc output this morning. Abdomen remains distended but less firm compared to yesterday. He is passing flatus and having small liquid bowel movements. His mentation is improved today. WBC decreasing 16.7. Abdominal x- ray this morning reveals nonspecific abdomen with retained contrast in the colon. PHYSICAL EXAM: VITAL SIGNS: Reviewed. GENERAL: Well-developed in no acute distress. HEENT: NG to LIS. No sclera icterus. Extraocular movements grossly intact. Moist buccal mucosa. Head is atraumatic, normocephalic. ABDOMEN: Distended. Firm, but slightly improved from yesterday. PREVENA wound vac to midline incision. NEUROLOGIC: Awake and alert. Oriented x 3. Cranial nerves II through XII grossly intact. ASSESSMENT: 1. GERD, S/P laparoscopic Manuel fundoplication 2. Acute gastric distention 3. Small bowel obstruction secondary to ileus, an unexpected outcome of surgery 4. Urinary retention, an unexpected outcome of surgery 5. S/p exploratory laparotomy, washout of abdomen, and enterorrhaphy due to small bowel perforation on 02/20/19, etiology unclear of perforation 6. Paroxysmal atrial fibrillation 7. Acute hypoxic respiratory failure requiring supplemental oxygen secondary to abdominal distention, fluid volume overload, and pleural effusions 8. Postoperative delrium, an unexpected by potential outcome of surgery and hospitalization 9. Fluid overload with pleural effusions/Acute exacerbation of diastolic heart failure EF 65-70% PLAN: 1. NPO except for ice chips or hard candy sparingly. Continue TPN 2. Continue NG tube 3. Continue antibiotics. Currently on Eraxis and Zosyn. 4. Monitor WBC 5. Continue Reglan and Dulcolax suppository daily 6. No need for repeat CT at this time considering patient is having bowel movements, lead ingot molder bilious drainage from NG, slightly decreased firmess to abdomen, delrium resolved, and decreasing WBC. If patients clinical condition changes or WBC begins to increase, will re-consider additional imaging. Nurse practitioner note has been reviewed by physician. Signing provider agrees with the documented findings, assessment, and plan of care. Objective - Vital Signs Vital signs: Vital Signs Temp 99.1 F 02/25/19 08:01 Pulse 97 02/25/19 11:00 Resp 38 H 02/25/19 11:00 BP 137/78 02/25/19 11:00 Pulse Ox 94 L 02/25/19 11:00 Intake & Output 02/24/19 02/25/19 02/25/19 18:59 06:59 18:59 Intake Total 3802.66 2794.814 0722 Output Total 3175 2655 775 Balance 627.66 -675.033 335 Weight 87.9 kg 85.4 kg Intake: IV 1296.66 1561.33 1010 Anidulafungin 100 mg In 100 100 Sodium Chloride 0.9% 100 ml @ 84 mls/hr IVPB DAILY [facility] Rx#:[id number] Diltiazem 125 mg In 110 10 Sodium Chloride 0.9% 100 ml @ Per Protocol IV .Q0M [facility] Rx#:[id number] Fat Emulsion 20% 250 ml @ 41.66 228.83 20.833 mls/hr IV DAILY@ 1600 [facility] Rx#:[id number] Piperacillin-Tazobactam 3 37.5 .375 gm In Sodium Chloride 0.9% 100 ml @ 25 mls/hr IVPB Q8HR [facility] Rx# :[id number] Sodium Chloride 0.9% 1, 220 180 560 000 ml @ 20 mls/hr IV . Q24H [facility] Rx#:[id number] TPN 935 1005 340 Intake, IV Titration 2506 358.637 100 Amount Diltiazem 125 mg In 125 Sodium Chloride 0.9% 100 ml @ Per Protocol IV .Q0M [facility] Rx#:[id number] Heparin Sod,Pork in 0.45% 250 346.137 NaCl 25,000 unit In 0.45 % NaCl 1 250ml.bag @ 11. 82 UNITS/KG/HR 10 mls/hr IV .Q24H [facility] Rx#: [id number] Mvi, Adult No.4 with Vit 1021 K 10 ml Trace (Conc-1Ml/ Dose) 1 ml Potassium Chloride 20 meq In Amino Acid 5%-D15w+Lytes*E* 1, 000 ml @ 85 mls/hr IV .BY DURATION [facility] Rx#: [id number] Piperacillin-Tazobactam 3 12.5 .375 gm In Sodium Chloride 0.9% 100 ml @ 25 mls/hr IVPB Q8H [facility] Rx#: [id number] Potassium Chloride 20 meq 1010 In Amino Acid 5%-D15w+ Lytes*E* 1,000 ml @ 85 mls/hr IV .BY DURATION [facility] Rx#:[id number] Potassium Chloride 20 meq 100 In Water For Injection 1 100ml.bag @ 50 mls/hr IVPB ONCE ONE Rx#: [id number] Potassium Chloride 20 meq 100 In Water For Injection 1 100ml.bag @ 50 mls/hr IVPB Q2H [facility] Rx#: [id number] Other 60 Output: Gastric Drainage 750 1000 350 Urine 2425 1655 425 Other: Voiding Method Indwelling Catheter Indwelling Catheter Indwelling Catheter # Bowel Movements 1 - Labs CBC & Chem 7: 02/25/19 04:31 02/25/19 04:31 Labs: Abnormal Lab Results - Last 24 Hours (Table) 02/24/19 02/24/19 02/25/19 Range/Units 17:06 20:32 00:35 WBC (3.8-10.6) k/uL RBC (4.30-5.90) m/uL Hgb (13.0-17.5) gm/dL Hct (39.0-53.0) % Neutrophils # (1.3-7.7) k/uL Lymphocytes # (1.0-4.8) k/uL APTT (22.0-30.0) sec BUN (9-20) mg/dL Glucose (74-99) mg/dL POC Glucose (mg/dL) 119 H 209 H 247 H (75-99) mg/dL Plasma Lactic Acid Timothy (0.7-2.0) mmol/L Calcium (8.4-10.2) mg/dL Total Protein (6.3-8.2) g/dL Albumin (3.5-5.0) g/dL 02/25/19 02/25/19 02/25/19 Range/Units 04:31 04:31 04:31 WBC 16.7 H (3.8-10.6) k/uL RBC 3.55 L (4.30-5.90) m/uL Hgb 11.0 L (13.0-17.5) gm/dL Hct 33.8 L (39.0-53.0) % Neutrophils # 15.4 H (1.3-7.7) k/uL Lymphocytes # 0.5 L (1.0-4.8) k/uL APTT 41.5 H (22.0-30.0) sec BUN 25 H (9-20) mg/dL Glucose 197 H (74-99) mg/dL POC Glucose (mg/dL) (75-99) mg/dL Plasma Lactic Acid Timothy (0.7-2.0) mmol/L Calcium 7.8 L (8.4-10.2) mg/dL Total Protein 5.0 L (6.3-8.2) g/dL Albumin 2.2 L (3.5-5.0) g/dL 02/25/19 02/25/19 02/25/19 Range/Units 04:31 06:35 12:28 WBC (3.8-10.6) k/uL RBC (4.30-5.90) m/uL Hgb (13.0-17.5) gm/dL Hct (39.0-53.0) % Neutrophils # (1.3-7.7) k/uL Lymphocytes # (1.0-4.8) k/uL APTT (22.0-30.0) sec BUN (9-20) mg/dL Glucose (74-99) mg/dL POC Glucose (mg/dL) 138 H 179 H (75-99) mg/dL Plasma Lactic Acid Timothy 2.3 H* (0.7-2.0) mmol/L Calcium (8.4-10.2) mg/dL Total Protein (6.3-8.2) g/dL Albumin (3.5-5.0) g/dL Microbiology - Last 24 Hours (Table) 02/21/19 13:21 Blood Culture - Preliminary Blood No Growth after 72 hours 02/20/19 11:00 Blood Culture - Preliminary Blood No Growth after 96 hours 02/20/19 11:12 Blood Culture - Preliminary Blood No Growth after 96 hours
[2019-02-25] MEDS ORDERED: ACETAMINOPHEN IV (For NPO) 1,000 MG in EMPTY BAG 1 BAG IVPB PRN (14:03)
--- NOTE | 2019-02-25 17:15 | P.PN ---
Subjective Progress Note Date: 02/25/19 This is a 78-year-old gentleman status post surgery for GI reflux disease. Subsequently, patient had a repeat surgery for ruptured a small bowel perforation. We're seeing the patient for paroxysmal atrial fibrillation. Patient was initiated on IV heparin and also IV Cardizem. Currently, patient is maintaining sinus rhythm with occasional APCs and PVCs. However, patient is developed distention of the abdomen and seemed to be in distress. Patient chest x-ray showed some right-sided effusion related to assess. Patient is getting IV Lasix also for fluid overload. Surgeons are going to evaluate him regarding his distended abdomen. From [facility] standpoint we'll continue current medical therapy. 02/24/2019: Patient is maintaining sinus rhythm. He is on IV Cardizem. Patient seemed to be sometimes delirious. His abdomen still distended from ileus. Patient is on IV heparin. We'll continue current medical therapy. Patient also received IV Lasix and diuresing well. Chest x-ray shows right-sided atelectasis versus fluid. Patient is have some bowel movement. We'll continue current medical therapy and will follow 02/25/2019: This patient is been maintaining sinus rhythm. He still on IV Cardizem. His blood pressure is better controlled. Patient claims she is feeling slightly better having some bowel movements. Still has NG tube. No other cardiac arrhythmias. Will stay in the current medical therapy. As long as patient is nothing by mouth, we'll continue IV Cardizem. May switch to by mouth medications when feasible Objective - Vital Signs Vital signs: Vital Signs Temp 99.1 F 02/25/19 08:01 Pulse 97 02/25/19 11:00 Resp 38 H 02/25/19 11:00 BP 137/78 02/25/19 11:00 Pulse Ox 94 L 02/25/19 11:00 Intake & Output 02/24/19 02/25/19 02/25/19 18:59 06:59 18:59 Intake Total 3802.66 8824.934 6494 Output Total 3175 2655 775 Balance 627.66 -675.033 335 Weight 87.9 kg 85.4 kg Intake: IV 1296.66 1561.33 1010 Anidulafungin 100 mg In 100 100 Sodium Chloride 0.9% 100 ml @ 84 mls/hr IVPB DAILY [facility] Rx#:[id number] Diltiazem 125 mg In 110 10 Sodium Chloride 0.9% 100 ml @ Per Protocol IV .Q0M [facility] Rx#:[id number] Fat Emulsion 20% 250 ml @ 41.66 228.83 20.833 mls/hr IV DAILY@ 1600 [facility] Rx#:[id number] Piperacillin-Tazobactam 3 37.5 .375 gm In Sodium Chloride 0.9% 100 ml @ 25 mls/hr IVPB Q8HR [facility] Rx# :[id number] Sodium Chloride 0.9% 1, 220 180 560 000 ml @ 20 mls/hr IV . Q24H [facility] Rx#:[id number] TPN 935 1005 340 Intake, IV Titration 2506 358.637 100 Amount Diltiazem 125 mg In 125 Sodium Chloride 0.9% 100 ml @ Per Protocol IV .Q0M [facility] Rx#:[id number] Heparin Sod,Pork in 0.45% 250 346.137 NaCl 25,000 unit In 0.45 % NaCl 1 250ml.bag @ 11. 82 UNITS/KG/HR 10 mls/hr IV .Q24H [facility] Rx#: [id number] Mvi, Adult No.4 with Vit 1021 K 10 ml Trace (Conc-1Ml/ Dose) 1 ml Potassium Chloride 20 meq In Amino Acid 5%-D15w+Lytes*E* 1, 000 ml @ 85 mls/hr IV .BY DURATION [facility] Rx#: [id number] Piperacillin-Tazobactam 3 12.5 .375 gm In Sodium Chloride 0.9% 100 ml @ 25 mls/hr IVPB Q8H [facility] Rx#: [id number] Potassium Chloride 20 meq 1010 In Amino Acid 5%-D15w+ Lytes*E* 1,000 ml @ 85 mls/hr IV .BY DURATION [facility] Rx#:[id number] Potassium Chloride 20 meq 100 In Water For Injection 1 100ml.bag @ 50 mls/hr IVPB ONCE ONE Rx#: [id number] Potassium Chloride 20 meq 100 In Water For Injection 1 100ml.bag @ 50 mls/hr IVPB Q2H [facility] Rx#: [id number] Other 60 Output: Gastric Drainage 750 1000 350 Urine 2425 1655 425 Other: Voiding Method Indwelling Catheter Indwelling Catheter Indwelling Catheter # Bowel Movements 1 - Exam GENERAL EXAM: Patient is alert and agitated HEENT: Normocephalic. Normal reaction of pupils, equal size, normal range of extraocular motion. No erythema or exudates in the throat. NECK: No masses, no nuchal rigidity. CHEST: No chest wall deformity. LUNGS: Equal air entry with no crackles or wheeze. HEART: S1 and S2 normal with no audible mumurs or gallops. Regular rhythm, femorals equal on both sides.. ABDOMEN: Distended SKIN: No rashes CENTRAL NERVOUS SYSTEM: No focal deficits. EXTREMITIES: No cyanosis, clubbing or edema. - Labs CBC & Chem 7: 02/25/19 04:31 02/25/19 04:31 Labs: Abnormal Lab Results - Last 24 Hours (Table) 02/24/19 02/24/19 02/25/19 Range/Units 17:06 20:32 00:35 WBC (3.8-10.6) k/uL RBC (4.30-5.90) m/uL Hgb (13.0-17.5) gm/dL Hct (39.0-53.0) % Neutrophils # (1.3-7.7) k/uL Lymphocytes # (1.0-4.8) k/uL APTT (22.0-30.0) sec BUN (9-20) mg/dL Glucose (74-99) mg/dL POC Glucose (mg/dL) 119 H 209 H 247 H (75-99) mg/dL Plasma Lactic Acid Timothy (0.7-2.0) mmol/L Calcium (8.4-10.2) mg/dL Total Protein (6.3-8.2) g/dL Albumin (3.5-5.0) g/dL 02/25/19 02/25/19 02/25/19 Range/Units 04:31 04:31 04:31 WBC 16.7 H (3.8-10.6) k/uL RBC 3.55 L (4.30-5.90) m/uL Hgb 11.0 L (13.0-17.5) gm/dL Hct 33.8 L (39.0-53.0) % Neutrophils # 15.4 H (1.3-7.7) k/uL Lymphocytes # 0.5 L (1.0-4.8) k/uL APTT 41.5 H (22.0-30.0) sec BUN 25 H (9-20) mg/dL Glucose 197 H (74-99) mg/dL POC Glucose (mg/dL) (75-99) mg/dL Plasma Lactic Acid Timothy (0.7-2.0) mmol/L Calcium 7.8 L (8.4-10.2) mg/dL Total Protein 5.0 L (6.3-8.2) g/dL Albumin 2.2 L (3.5-5.0) g/dL 02/25/19 02/25/19 02/25/19 Range/Units 04:31 06:35 12:28 WBC (3.8-10.6) k/uL RBC (4.30-5.90) m/uL Hgb (13.0-17.5) gm/dL Hct (39.0-53.0) % Neutrophils # (1.3-7.7) k/uL Lymphocytes # (1.0-4.8) k/uL APTT (22.0-30.0) sec BUN (9-20) mg/dL Glucose (74-99) mg/dL POC Glucose (mg/dL) 138 H 179 H (75-99) mg/dL Plasma Lactic Acid Timothy 2.3 H* (0.7-2.0) mmol/L Calcium (8.4-10.2) mg/dL Total Protein (6.3-8.2) g/dL Albumin (3.5-5.0) g/dL 02/25/19 Range/Units 13:08 WBC (3.8-10.6) k/uL RBC (4.30-5.90) m/uL Hgb (13.0-17.5) gm/dL Hct (39.0-53.0) % Neutrophils # (1.3-7.7) k/uL Lymphocytes # (1.0-4.8) k/uL APTT 49.2 H (22.0-30.0) sec BUN (9-20) mg/dL Glucose (74-99) mg/dL POC Glucose (mg/dL) (75-99) mg/dL Plasma Lactic Acid Timothy (0.7-2.0) mmol/L Calcium (8.4-10.2) mg/dL Total Protein (6.3-8.2) g/dL Albumin (3.5-5.0) g/dL Microbiology - Last 24 Hours (Table) 02/21/19 13:21 Blood Culture - Preliminary Blood No Growth after 96 hours 02/20/19 11:12 Blood Culture - Preliminary Blood No Growth after 120 hours 02/20/19 11:00 Blood Culture - Preliminary Blood No Growth after 120 hours Assessment and Plan (1) Paroxysmal atrial fibrillation Current Visit: Yes Status: Acute Code(s): I48.0 - PAROXYSMAL ATRIAL FIBRILLATION SNOMED Code(s): 745046542 (2) Diabetes type 2, uncontrolled Current Visit: Yes Status: Acute Code(s): E11.65 - TYPE 2 DIABETES MELLITUS WITH HYPERGLYCEMIA SNOMED Code(s): 287982785 (3) Status post Manuel fundoplication Current Visit: Yes Status: Acute Code(s): Z98.890 - OTHER SPECIFIED POSTPROCEDURAL STATES SNOMED Code(s): 560458211 Plan: Paroxysmal and persistent atrial fibrillation currently maintaining sinus rhythm. Also has some fluid overload and CHF. Patient is on IV Lasix and diuresing well. Continue rest of the management
[2019-02-25 17:25] LABS: Glucose,Whole Blood 141 mg/dL (75-99)
[2019-02-25] MEDS: FAT EMULSION 20% 250 ML IV SCH (17:28)
[2019-02-25] MEDS: SODIUM CHLORIDE 0.9% 1,000 ML IV SCH (18:00)
--- NOTE | 2019-02-25 18:18 | PN ---
PROGRESS NOTE DATE OF SERVICE: 02/25/2019 REASON FOR FOLLOWUP: Secondary peritonitis from a perforated small bowel. INTERVAL HISTORY: The patient did have a low-grade fever of 100.2 early in the morning; subsequently afebrile. He has been breathing comfortably, hemodynamically stable, not requiring any pressor support. No chest pain. Occasional cough. No significant abdominal pain. He still has the NG and did have bowel movement. PHYSICAL EXAMINATION: Blood pressure 137/78 with a pulse of 97, temperature 99.1. He is 94% on 2 L nasal cannula. General description is an elderly male lying in bed in no distress. RESPIRATORY SYSTEM: Unlabored breathing with decreased breath sounds at the base. No wheeze. HEART: S1, S2. Regular rate and rhythm. ABDOMEN: Soft. The abdominal incision looks clean with no cellulitis. LABS: Hemoglobin is 11, white count down to 16.7, BUN of 25, creatinine 1.03. Blood culture has been negative. DIAGNOSTIC IMPRESSION AND PLAN: Patient with secondary peritonitis from a perforated small bowel, status post repair. The patient seems to have shown slow clinical improvement. To continue with Zosyn and Eraxis. White count is showing a downward trend. Culture has been negative. at the bedside. Questions were answered. MMODL / IJN: [id number] /
[2019-02-25] MEDS: 1: MVI, ADULT NO.4 WITH VIT K 10 ML, TRACE (CONC-1ML/DOSE) 1 ML, POTASSIUM CHLORIDE 40 M IV SCH ×4 (18:29)
--- NOTE | 2019-02-25 22:13 | P.PN ---
Subjective Progress Note Date: 02/24/19 Principal diagnosis: Status post Manuel fundoplication patient is status post Manuel fundoplication 02/16/2019 patient is tachycardic patient abdomen is distended because of constipation grade halogenated repeat CAT scan which did not show any significant blood bowel blockage but does have significant air. Patient may benefit from medications for constipation. We'll obtain an EKG TSH. It appears to be sinus tachycardia clinically. and is in distress because of abdominal distention but able to walk around patient is hypoxic at 90% obtain a chest x-ray as well although clinically patient chest is clear. 02/17/2019 Patient is still tachycardic with heart rate in 90s. Patient is status post Manuel fundoplication on 02/14/2019. Patient is otherwise awake alert and oriented 3. Currently in the intensive care unit. Currently being continued on NG tube due ileus. Abdominal still distended. 02/18/2019 Patient seems to be confused today. Patient went into atrial fibrillation with RVR and was started on Cardizem drip. Repeat CT abdomen and pelvis showed bilateral moderate pleural effusion and bibasilar pulmonary infiltrates. New compared to previous exam. Patient was started on antibiotics no cough Zosyn. Otherwise patient's abdominal still distended. Patient is being continued on NG tube for decompression. Patient has been afebrile. WBC count slightly elevated to 10.8. No bowel movement or passing of flatus at this time. 02/19/2019 Patient is awake alert and oriented 3 today. Patient says that she did pass flatness this morning. Bowel sounds are sluggish. Complains of mild abdominal pain. No fever no chills. Heart rate is better controlled and added Imdur has been discontinued. Patient is being continued on antibiotics Zosyn. NG tube is in place with bilious drainage. 02 20 2019 Patient says that he still having abdominal pain 3 out of 10. Due to overall slow improvement and worsening leukocytosis with WBC count 17.5 today, repeat CT abdomen and pelvis was done showed increasing ascites and small bowel inflammation. No evidence of perforation. Patient was taken to walk but expiratory laparotomy and possible peritonitis Patient has been afebrile. NG tube is in place with bilious drainage. No chest pain or shortness of breath. No bowel movement. 02/21/2019 Patient says that his abdominal pain is better. Has not passed flatness. Otherwise no complaints of nausea vomiting. Patient was started on TPN. Leukocytosis is still present. Heart rate is controlled. No fever no chills. Mentation is much improved today. 02/22/2019 Status post repair of small bowel perforation requiring exploratory laparotomy. Postoperative day 2. Patient is currently in the MICU. No events of chest pain or abdominal pain i ncreases improving. Continued on IV hydration and TPN. Patient has been afebrile. Otherwise patient went into A. fib today morning and was started back on Cardizem. Chest x-ray showed congestive heart. Small pleural effusions. Pelvis count is trending up to 23.4. Currently on antibiotics in Zosyn and micafungin. 02/23/2019 Patient is currently in MICU. Lying in the bed confused and delirious. NG tube is in place. Patient is being continued on TPN f Abdomen seems distended today. No bowel movement so far. Patient is being continued on Cardizem drip. No fever no chills otherwise. Leukocytosis slightly improved to 22.7 today. Denies chest pain. No shortness of breath. 02/24/2019 Patient is currently in the MICU. Mental status is better compared to yesterday. Awake alert and oriented. NG tube with low suction is in place. Denied any complaints of chest pain or shortness of breath. Patient is on Cardizem drip for rate control. Leukocytosis is improving with WBC count 19.1 today. Otherwise patient did have a small bowel movement last night. Abdomen is still distended. No fever no chills. Antibiotics are being continued on Zosyn and micafungin. Current Medications reviewed. Objective - Vital Signs Vital signs: Vital Signs Temp 100.3 F H 02/24/19 20:00 Pulse 105 H 02/24/19 20:00 Resp 30 H 02/24/19 20:00 BP 163/88 02/24/19 20:00 Pulse Ox 96 02/24/19 20:00 Intake & Output 02/24/19 02/24/19 02/25/19 06:59 18:59 06:59 Intake Total 2068.8 2792.66 464.93 Output Total 1835 3175 890 Balance 233.8 -382.34 -425.07 Weight 87.9 kg 87.9 kg Intake: IV 1693.8 1296.66 404.93 Anidulafungin 100 mg In 100 Sodium Chloride 0.9% 100 ml @ 84 mls/hr IVPB DAILY [facility] Rx#:[id number] Diltiazem 125 mg In 20 Sodium Chloride 0.9% 100 ml @ Per Protocol IV .Q0M [facility] Rx#:[id number] Fat Emulsion 20% 250 ml @ 228.8 41.66 62.43 20.833 mls/hr IV DAILY@ 1600 [facility] Rx#:[id number] Mvi, Adult No.4 with Vit 1105 K 10 ml Trace (Conc-1Ml/ Dose) 1 ml In Amino Acid 5%-D15w+Lytes*E* 1,000 ml @ 85 mls/hr IV .BY DURATION [facility] Rx#: [id number] Piperacillin-Tazobactam 3 100 12.5 .375 gm In Sodium Chloride 0.9% 100 ml @ 25 mls/hr IVPB Q8HR [facility] Rx# :[id number] Sodium Chloride 0.9% 1, 260 220 60 000 ml @ 20 mls/hr IV . Q24H [facility] Rx#:[id number] TPN 935 250 Intake, IV Titration 375 1496 Amount Clevidipine Butyrate 25 50 mg In Empty Bag 1 bag @ 1 MG/HR 2 mls/hr IV .Q24H [facility] Rx#:[id number] Diltiazem 125 mg In 125 125 Sodium Chloride 0.9% 100 ml @ Per Protocol IV .Q0M [facility] Rx#:[id number] Heparin Sod,Pork in 0.45% 250 NaCl 25,000 unit In 0.45 % NaCl 1 250ml.bag @ 11. 82 UNITS/KG/HR 10 mls/hr IV .Q24H [facility] Rx#: [id number] Mvi, Adult No.4 with Vit 1021 K 10 ml Trace (Conc-1Ml/ Dose) 1 ml Potassium Chloride 20 meq In Amino Acid 5%-D15w+Lytes*E* 1, 000 ml @ 85 mls/hr IV .BY DURATION [facility] Rx#: [id number] Potassium Chloride 20 meq 200 100 In Water For Injection 1 100ml.bag @ 50 mls/hr IVPB Q2H [facility] Rx#: [id number] Other 60 Output: Gastric Drainage 900 750 400 Urine 935 2425 490 Other: Voiding Method Indwelling Catheter Indwelling Catheter # Bowel Movements 1 - Exam PHYSICAL EXAMINATION: GENERAL: The patient is alert and oriented x1, confused. not in any acute distress. Well developed, well nourished. HEENT: Pupils are round and equally reacting to light. EOMI. No scleral icterus. No conjunctival pallor. Normocephalic, atraumatic. No pharyngeal erythema. No thyromegaly. CARDIOVASCULAR: S1 and S2 present. No murmurs, rubs, or gallops. PULMONARY: Chest is clear to auscultation, no wheezing or crackles. ABDOMEN: Minimal tenderness. abdomen is distended tympanic sluggish bowel sounds. Surgical site area appears to be not infected and clean MUSCULOSKELETAL: No joint swelling or deformity. EXTREMITIES: No cyanosis, clubbing, or pedal edema. NEUROLOGICAL: Gross neurological examination did not reveal any focal deficits. SKIN: No rashes. - Labs CBC & Chem 7: 02/25/19 04:31 02/25/19 13:08 Labs: Abnormal Lab Results - Last 24 Hours (Table) 02/23/19 02/24/19 02/24/19 Range/Units 22:02 00:03 04:38 WBC (3.8-10.6) k/uL RBC (4.30-5.90) m/uL Hgb (13.0-17.5) gm/dL Hct (39.0-53.0) % Neutrophils # (1.3-7.7) k/uL Lymphocytes # (1.0-4.8) k/uL APTT (22.0-30.0) sec Chloride 110 H (98-107) mmol/L BUN 27 H (9-20) mg/dL Glucose 175 H (74-99) mg/dL POC Glucose (mg/dL) 237 H 264 H (75-99) mg/dL Calcium 7.6 L (8.4-10.2) mg/dL Total Protein 4.8 L (6.3-8.2) g/dL Albumin 2.1 L (3.5-5.0) g/dL 02/24/19 02/24/19 02/24/19 Range/Units 04:38 04:38 05:44 WBC 19.1 H (3.8-10.6) k/uL RBC 3.47 L (4.30-5.90) m/uL Hgb 10.8 L (13.0-17.5) gm/dL Hct 33.1 L (39.0-53.0) % Neutrophils # 17.7 H (1.3-7.7) k/uL Lymphocytes # 0.6 L (1.0-4.8) k/uL APTT 51.3 H (22.0-30.0) sec Chloride (98-107) mmol/L BUN (9-20) mg/dL Glucose (74-99) mg/dL POC Glucose (mg/dL) 184 H (75-99) mg/dL Calcium (8.4-10.2) mg/dL Total Protein (6.3-8.2) g/dL Albumin (3.5-5.0) g/dL 02/24/19 02/24/19 02/24/19 Range/Units 11:46 17:06 20:32 WBC (3.8-10.6) k/uL RBC (4.30-5.90) m/uL Hgb (13.0-17.5) gm/dL Hct (39.0-53.0) % Neutrophils # (1.3-7.7) k/uL Lymphocytes # (1.0-4.8) k/uL APTT (22.0-30.0) sec Chloride (98-107) mmol/L BUN (9-20) mg/dL Glucose (74-99) mg/dL POC Glucose (mg/dL) 230 H 119 H 209 H (75-99) mg/dL Calcium (8.4-10.2) mg/dL Total Protein (6.3-8.2) g/dL Albumin (3.5-5.0) g/dL Microbiology - Last 24 Hours (Table) 02/21/19 13:21 Blood Culture - Preliminary Blood No Growth after 72 hours 02/20/19 11:00 Blood Culture - Preliminary Blood No Growth after 96 hours 02/20/19 11:12 Blood Culture - Preliminary Blood No Growth after 96 hours Assessment and Plan Assessment: - Status post Manuel fundoplication due to severe gastroesophageal reflux disease. - New onset atrial fibrillation with RVR. Currently off Cardizem drip. Cardi ology is following. - Postoperative ileus. Currently on NG tube. CT abdomen and pelvis showed no e vidence of obstruction. Status post exploratory laparotomy. - Bilateral moderate pleural effusion and possible basilar infiltrate. - Type 2 diabetes mellitus: Sliding scale insulin hold off metformin as mentioned above -Hypertension patient blood pressure is elevated because of pain and patientis o n his lisinopril -Abdominal pain mostly secondary to constipation and opiate analgesia management as per primary service. -Gastroesophageal reflux disease for which patient underwent Manuel fundoplica tion on proton pump inhibitor - DVT prophylaxis with heparin subcu Time with Patient: Greater than 30
--- NOTE | 2019-02-25 22:18 | P.PN ---
Subjective Progress Note Date: 02/25/19 Principal diagnosis: Status post Manuel fundoplication patient is status post Manuel fundoplication 02/16/2019 patient is tachycardic patient abdomen is distended because of constipation grade halogenated repeat CAT scan which did not show any significant blood bowel blockage but does have significant air. Patient may benefit from medications for constipation. We'll obtain an EKG TSH. It appears to be sinus tachycardia clinically. and is in distress because of abdominal distention but able to walk around patient is hypoxic at 90% obtain a chest x-ray as well although clinically patient chest is clear. 02/17/2019 Patient is still tachycardic with heart rate in 90s. Patient is status post Manuel fundoplication on 02/14/2019. Patient is otherwise awake alert and oriented 3. Currently in the intensive care unit. Currently being continued on NG tube due ileus. Abdominal still distended. 02/18/2019 Patient seems to be confused today. Patient went into atrial fibrillation with RVR and was started on Cardizem drip. Repeat CT abdomen and pelvis showed bilateral moderate pleural effusion and bibasilar pulmonary infiltrates. New compared to previous exam. Patient was started on antibiotics no cough Zosyn. Otherwise patient's abdominal still distended. Patient is being continued on NG tube for decompression. Patient has been afebrile. WBC count slightly elevated to 10.8. No bowel movement or passing of flatus at this time. 02/19/2019 Patient is awake alert and oriented 3 today. Patient says that she did pass flatness this morning. Bowel sounds are sluggish. Complains of mild abdominal pain. No fever no chills. Heart rate is better controlled and added Imdur has been discontinued. Patient is being continued on antibiotics Zosyn. NG tube is in place with bilious drainage. 02 20 2019 Patient says that he still having abdominal pain 3 out of 10. Due to overall slow improvement and worsening leukocytosis with WBC count 17.5 today, repeat CT abdomen and pelvis was done showed increasing ascites and small bowel inflammation. No evidence of perforation. Patient was taken to walk but expiratory laparotomy and possible peritonitis Patient has been afebrile. NG tube is in place with bilious drainage. No chest pain or shortness of breath. No bowel movement. 02/21/2019 Patient says that his abdominal pain is better. Has not passed flatness. Otherwise no complaints of nausea vomiting. Patient was started on TPN. Leukocytosis is still present. Heart rate is controlled. No fever no chills. Mentation is much improved today. 02/22/2019 Status post repair of small bowel perforation requiring exploratory laparotomy. Postoperative day 2. Patient is currently in the MICU. No events of chest pain or abdominal pain i ncreases improving. Continued on IV hydration and TPN. Patient has been afebrile. Otherwise patient went into A. fib today morning and was started back on Cardizem. Chest x-ray showed congestive heart. Small pleural effusions. Pelvis count is trending up to 23.4. Currently on antibiotics in Zosyn and micafungin. 02/23/2019 Patient is currently in MICU. Lying in the bed confused and delirious. NG tube is in place. Patient is being continued on TPN f Abdomen seems distended today. No bowel movement so far. Patient is being continued on Cardizem drip. No fever no chills otherwise. Leukocytosis slightly improved to 22.7 today. Denies chest pain. No shortness of breath. 02/24/2019 Patient is currently in the MICU. Mental status is better compared to yesterday. Awake alert and oriented. NG tube with low suction is in place. Denied any complaints of chest pain or shortness of breath. Patient is on Cardizem drip for rate control. Leukocytosis is improving with WBC count 19.1 today. Otherwise patient did have a small bowel movement last night. Abdomen is still distended. No fever no chills. Antibiotics are being continued on Zosyn and micafungin. 02/25/2019 Patient is demanding the MICU. Mental status is much improved today. Patient was transferred to bedside recliner today. No fever no chills. Overnight patient did have small bowel movements and was able to pass flatus. Abdominal distention slightly improved but still distended. No nausea no vomiting. NG tube in place with low intermittent suction. Continued on antibiotics. Heart rate is better controlled. Leukocytosis improved to 16.7 today. Current Medications reviewed. Objective - Vital Signs Vital signs: Vital Signs Temp 98.8 F 02/25/19 21:00 Pulse 92 02/25/19 21:00 Resp 32 H 02/25/19 21:00 BP 159/78 02/25/19 21:00 Pulse Ox 94 L 02/25/19 21:00 Intake & Output 02/25/19 02/25/19 02/26/19 06:59 18:59 06:59 Intake Total 0496.543 5236.66 319.49 Output Total 2655 2675 300 Balance -675.033 -683.34 19.49 Weight 85.4 kg Intake: IV 1561.33 1891.66 319.49 Anidulafungin 100 mg In 100 Sodium Chloride 0.9% 100 ml @ 84 mls/hr IVPB DAILY [facility] Rx#:[id number] Diltiazem 125 mg In 110 10 Sodium Chloride 0.9% 100 ml @ Per Protocol IV .Q0M [facility] Rx#:[id number] Fat Emulsion 20% 250 ml @ 228.83 41.66 62.49 20.833 mls/hr IV DAILY@ 1600 [facility] Rx#:[id number] Piperacillin-Tazobactam 3 37.5 .375 gm In Sodium Chloride 0.9% 100 ml @ 25 mls/hr IVPB Q8HR [facility] Rx# :[id number] Sodium Chloride 0.9% 1, 180 720 2 000 ml @ 20 mls/hr IV . Q24H [facility] Rx#:[id number] TPN 1005 1020 255 Intake, IV Titration 358.637 100 Amount Heparin Sod,Pork in 0.45% 346.137 NaCl 25,000 unit In 0.45 % NaCl 1 250ml.bag @ 11. 82 UNITS/KG/HR 10 mls/hr IV .Q24H [facility] Rx#: [id number] Piperacillin-Tazobactam 3 12.5 .375 gm In Sodium Chloride 0.9% 100 ml @ 25 mls/hr IVPB Q8H [facility] Rx#: [id number] Potassium Chloride 20 meq 100 In Water For Injection 1 100ml.bag @ 50 mls/hr IVPB ONCE ONE Rx#: [id number] Other 60 Output: Gastric Drainage 1000 650 100 Urine 1655 2025 200 Other: Voiding Method Indwelling Catheter Indwelling Catheter # Bowel Movements 1 - Exam PHYSICAL EXAMINATION: GENERAL: The patient is alert and oriented x1, confused. not in any acute distress. Well developed, well nourished. HEENT: Pupils are round and equally reacting to light. EOMI. No scleral icterus. No conjunctival pallor. Normocephalic, atraumatic. No pharyngeal erythema. No thyromegaly. CARDIOVASCULAR: S1 and S2 present. No murmurs, rubs, or gallops. PULMONARY: Chest is clear to auscultation, no wheezing or crackles. ABDOMEN: Minimal tenderness. abdomen is distended tympanic sluggish bowel sounds. Surgical site area appears to be not infected and clean MUSCULOSKELETAL: No joint swelling or deformity. EXTREMITIES: No cyanosis, clubbing, or pedal edema. NEUROLOGICAL: Gross neurological examination did not reveal any focal deficits. SKIN: No rashes. - Labs CBC & Chem 7: 02/25/19 04:31 02/25/19 13:08 Labs: Abnormal Lab Results - Last 24 Hours (Table) 02/25/19 02/25/19 02/25/19 Range/Units 00:35 04:31 04:31 WBC 16.7 H (3.8-10.6) k/uL RBC 3.55 L (4.30-5.90) m/uL Hgb 11.0 L (13.0-17.5) gm/dL Hct 33.8 L (39.0-53.0) % Neutrophils # 15.4 H (1.3-7.7) k/uL Lymphocytes # 0.5 L (1.0-4.8) k/uL APTT (22.0-30.0) sec BUN 25 H (9-20) mg/dL Glucose 197 H (74-99) mg/dL POC Glucose (mg/dL) 247 H (75-99) mg/dL Plasma Lactic Acid Timothy (0.7-2.0) mmol/L Calcium 7.8 L (8.4-10.2) mg/dL Total Protein 5.0 L (6.3-8.2) g/dL Albumin 2.2 L (3.5-5.0) g/dL 02/25/19 02/25/19 02/25/19 Range/Units 04:31 04:31 06:35 WBC (3.8-10.6) k/uL RBC (4.30-5.90) m/uL Hgb (13.0-17.5) gm/dL Hct (39.0-53.0) % Neutrophils # (1.3-7.7) k/uL Lymphocytes # (1.0-4.8) k/uL APTT 41.5 H (22.0-30.0) sec BUN (9-20) mg/dL Glucose (74-99) mg/dL POC Glucose (mg/dL) 138 H (75-99) mg/dL Plasma Lactic Acid Timothy 2.3 H* (0.7-2.0) mmol/L Calcium (8.4-10.2) mg/dL Total Protein (6.3-8.2) g/dL Albumin (3.5-5.0) g/dL 02/25/19 02/25/19 02/25/19 Range/Units 12:28 13:08 17:14 WBC (3.8-10.6) k/uL RBC (4.30-5.90) m/uL Hgb (13.0-17.5) gm/dL Hct (39.0-53.0) % Neutrophils # (1.3-7.7) k/uL Lymphocytes # (1.0-4.8) k/uL APTT 49.2 H (22.0-30.0) sec BUN (9-20) mg/dL Glucose (74-99) mg/dL POC Glucose (mg/dL) 179 H 141 H (75-99) mg/dL Plasma Lactic Acid Timothy (0.7-2.0) mmol/L Calcium (8.4-10.2) mg/dL Total Protein (6.3-8.2) g/dL Albumin (3.5-5.0) g/dL Microbiology - Last 24 Hours (Table) 02/21/19 13:21 Blood Culture - Preliminary Blood No Growth after 96 hours 02/20/19 11:12 Blood Culture - Preliminary Blood No Growth after 120 hours 02/20/19 11:00 Blood Culture - Preliminary Blood No Growth after 120 hours Assessment and Plan Assessment: - Status post Manuel fundoplication due to severe gastroesophageal reflux disease. - Abdominal distention and small bowel obstruction. Status post expiratory laparotomy. - New onset atrial fibrillation with RVR. Currently off Cardizem drip. Cardiology is following. - Postoperative ileus. Currently on NG tube. CT abdomen and pelvis showed no evidence of obstruction. Status post exploratory laparotomy. - Bilateral moderate pleural effusion and possible basilar infiltrate. - Type 2 diabetes mellitus: Sliding scale insulin hold off metformin as mentioned above -Hypertension patient blood pressure is elevated because of pain and patientis on his lisinopril -Abdominal pain mostly secondary to constipation and opiate analgesia management as per primary service. -Gastroesophageal reflux disease for which patient underwent Manuel fundoplication on proton pump inhibitor - DVT prophylaxis with heparin subcu Time with Patient: Greater than 30
[2019-02-25] MEDS: QUEtiapine 50 MG TAB PO SCH (22:49)
[2019-02-25] MEDS: INSULIN DETEMIR (LEVEMIR) 100 UNIT/ML SYR SQ SCH (23:06)
[2019-02-25 23:13] LABS: Glucose,Whole Blood 139 mg/dL (75-99)
[2019-02-26] MEDS: METOCLOPRAMIDE 5 MG/ML 2 ML VIAL IVP SCH ×4 (00:37→18:11)
[2019-02-26] MEDS: LABETALOL 5 MG/ML VIAL MDV IVP PRN ×2 (00:52→18:09)
[2019-02-26] MEDS: HEPARIN SOD,PORK IN 0.45% NACL 25,000 UNIT in 0.45% NACL 1 250ML.BAG IV SCH ×2 (04:39→20:00)
[2019-02-26 06:15] LABS: Glucose,Whole Blood 197 mg/dL (75-99)
[2019-02-26] MEDS: INSULIN ASPART (NovoLOG) 100 UNIT/ML VIAL SQ SCH ×3 (06:16→18:23)
[2019-02-26] MEDS: PIPERACILLIN-TAZOBACTAM 3.375 GM in SODIUM CHLORIDE 0.9% 100 ML IVPB SCH ×3 (06:17→21:41)
[2019-02-26 07:25] LABS: Basophils # (A) 0.1 k/uL (0-0.2); Basophils % (A) 0 %; Eosinophils # (A) 0.2 k/uL (0-0.7); Eosinophils % (A) 1 %; HCT 35.4 % (39.0-53.0); HGB 11.6 gm/dL (13.0-17.5); Lymphocytes # (A) 0.4 k/uL (1.0-4.8); Lymphocytes % (A) 3 %; MCH 31.2 pg (25.0-35.0); MCHC 32.7 g/dL (31.0-37.0); MCV 95.5 fL (80.0-100.0); Mean Platelet Volume 7.6; Monocytes # (A) 0.3 k/uL (0-1.0); Monocytes % (A) 2 %; Neutrophils # (A) 14.1 k/uL (1.3-7.7); Neutrophils % (A) 93 %; Platelet Count 338 k/uL (150-450); RBC 3.71 m/uL (4.30-5.90); RDW 13.5 % (11.5-15.5); WBC 15.1 k/uL (3.8-10.6)
[2019-02-26 07:31] LABS: Ionized Calcium 4.7 mg/dL (4.5-5.3)
[2019-02-26 07:34] LABS: Partial Thromboplastin Time 50.1 sec (22.0-30.0); Prothrombin Time 10.5 sec (9.0-12.0)
[2019-02-26 07:51] LABS: Calcium 7.6 mg/dL (8.4-10.2); Magnesium 2.1 mg/dL (1.6-2.3); Phosphorus 3.9 mg/dL (2.5-4.5); Potassium 3.8 mmol/L (3.5-5.1)
--- NOTE | 2019-02-26 08:49 | XR ---
EXAMINATION TYPE: XR abdomen 1V DATE OF EXAM: 02/26/2019 COMPARISON: 02/25/2019 HISTORY: Abdominal distention TECHNIQUE: One view abdominal series FINDINGS: Catheter overlies the abdomen. Surgical everton overlying the abdomen are seen. There is contrast inv olving the colon. Density overlying the pubic rami likely related to retained contrast although osseo us lesion not excluded. Arthropathy of the hips. Bowel gas pattern nonspecific. Bilateral lower lobe infiltrate and small effusion with left lower lobe granuloma suspected. Hypertrophic and degenerative change of the spine. IMPRESSION: 1. Nonspecific abdomen with retained contrast in colon. Density in the pelvis appears be related to c ontrast within the rectum.
[2019-02-26] MEDS: CLEVIDIPINE BUTYRATE 25 MG in EMPTY BAG 1 BAG IV SCH (08:50)
--- NOTE | 2019-02-26 08:53 | XR ---
EXAMINATION TYPE: XR chest 1V portable DATE OF EXAM: 02/26/2019 COMPARISON: 02/25/2019 HISTORY: Shortness of breath TECHNIQUE: Single frontal view of the chest is obtained. FINDINGS: The heart is enlarged and there is bilateral consolidation no overt failure. Heart size st able. Prominence of the right hilum noted. NG tube courses in the left upper quadrant. Hypertrophic a nd degenerative change of the spine. Arthropathy of the shoulders. Central line seen with tip overlyi ng the right atrium IMPRESSION: Bilateral diffuse infiltrate and pleural effusion correlate for pneumonia otherwise consi ashley CHF. There is right hilar soft tissue prominence underlying mass or adenopathy not excluded. Find ings stable.
[2019-02-26] MEDS: PANTOPRAZOLE 40 MG/10 ML VIAL IVP SCH (08:58)
[2019-02-26] MEDS: ANIDULAFUNGIN 100 MG in SODIUM CHLORIDE 0.9% 100 ML IVPB SCH (08:58)
[2019-02-26] MEDS: POTASSIUM CHLORIDE 10 MEQ in WATER FOR INJECTION 1 100ML.BAG IVPB SCH ×4 (08:58→20:05)
[2019-02-26] MEDS: FUROSEMIDE 10 MG/ML 2 ML VIAL IV SCH ×2 (09:02→20:21)
[2019-02-26] MEDS: ACETAMINOPHEN TAB 325 MG TAB PO SCH ×2 (09:07→20:20)
[2019-02-26] MEDS: TAMSULOSIN 0.4 MG CAP.ER.24H PO SCH ×2 (09:09→10:20)
[2019-02-26] MEDS: BISACODYL 10 MG SUPP RECTAL SCH ×2 (09:10→10:20)
--- NOTE | 2019-02-26 09:17 | P.PN ---
Subjective Progress Note Date: 02/26/19 This is a 78-year-old gentleman status post surgery for GI reflux disease. Subsequently, patient had a repeat surgery for ruptured a small bowel perforation. We're seeing the patient for paroxysmal atrial fibrillation. Patient was initiated on IV heparin and also IV Cardizem. Currently, patient is maintaining sinus rhythm with occasional APCs and PVCs. However, patient is developed distention of the abdomen and seemed to be in distress. Patient chest x-ray showed some right-sided effusion related to assess. Patient is getting IV Lasix also for fluid overload. Surgeons are going to evaluate him regarding his distended abdomen. From Cardec standpoint we'll continue current medical therapy. 02/24/2019: Patient is maintaining sinus rhythm. He is on IV Cardizem. Patient seemed to be sometimes delirious. His abdomen still distended from ileus. Patient is on IV heparin. We'll continue current medical therapy. Patient also received IV Lasix and diuresing well. Chest x-ray shows right-sided atelectasis versus fluid. Patient is have some bowel movement. We'll continue current medical therapy and will follow 02/25/2019: This patient is been maintaining sinus rhythm. He still on IV Cardizem. His blood pressure is better controlled. Patient claims she is feeling slightly better having some bowel movements. Still has NG tube. No other cardiac arrhythmias. Will stay in the current medical therapy. As long as patient is nothing by mouth, we'll continue IV Cardizem. May switch to by mouth medications when feasible. 02/26/2019. This patient is maintaining sinus rhythm. He claims he is feeling better. Has a lot of gas and having some stools. Still has abdominal dis tention NG tube. Patient is currently on IV Cardizem and also heparin. As long as patient is nothing by mouth we'll continue current medical therapy. Chest x- ray showed some slight improvement. There appears to be right-sided pleural effusion with some effect assess. Prognosis still guarded Objective - Vital Signs Vital signs: Vital Signs Temp 99.2 F 02/26/19 05:00 Pulse 105 H 02/26/19 09:00 Resp 24 02/26/19 09:00 BP 148/82 02/26/19 09:00 Pulse Ox 96 02/26/19 09:03 Intake & Output 02/25/19 02/26/19 02/26/19 18:59 06:59 18:59 Intake Total 2145.523 1471.13 105 Output Total 9845 2370 75 Balance -529.477 -898.87 30 Intake: IV 1891.66 1411.13 105 Anidulafungin 100 mg In 100 Sodium Chloride 0.9% 100 ml @ 84 mls/hr IVPB DAILY [facility] Rx#:[id number] Diltiazem 125 mg In 10 Sodium Chloride 0.9% 100 ml @ Per Protocol IV .Q0M [facility] Rx#:[id number] Fat Emulsion 20% 250 ml @ 41.66 229.13 20.833 mls/hr IV DAILY@ 1600 [facility] Rx#:[id number] Sodium Chloride 0.9% 1, 720 162 20 000 ml @ 20 mls/hr IV . Q24H [facility] Rx#:[id number] TPN 1020 1020 85 Intake, IV Titration 253.863 Amount Heparin Sod,Pork in 0.45% 153.863 NaCl 25,000 unit In 0.45 % NaCl 1 250ml.bag @ 11. 82 UNITS/KG/HR 10 mls/hr IV .Q24H [facility] Rx#: [id number] Potassium Chloride 20 meq 100 In Water For Injection 1 100ml.bag @ 50 mls/hr IVPB ONCE ONE Rx#: [id number] Other 60 Output: Gastric Drainage 650 550 Urine 5 1820 75 Other: Voiding Method Indwelling Catheter Indwelling Catheter - Exam GENERAL EXAM: Patient is alert and agitated HEENT: Normocephalic. Normal reaction of pupils, equal size, normal range of extraocular motion. No erythema or exudates in the throat. NECK: No masses, no nuchal rigidity. CHEST: No chest wall deformity. LUNGS: Equal air entry with no crackles or wheeze. HEART: S1 and S2 normal with no audible mumurs or gallops. Regular rhythm, femorals equal on both sides.. ABDOMEN: Distended SKIN: No rashes CENTRAL NERVOUS SYSTEM: No focal deficits. EXTREMITIES: No cyanosis, clubbing or edema. - Labs CBC & Chem 7: 02/26/19 06:53 02/26/19 06:53 Labs: Abnormal Lab Results - Last 24 Hours (Table) 09/24/19 09/24/19 09/24/19 Range/Units 12:28 13:08 17:14 WBC (3.8-10.6) k/uL RBC (4.30-5.90) m/uL Hgb (13.0-17.5) gm/dL Hct (39.0-53.0) % Neutrophils # (1.3-7.7) k/uL Lymphocytes # (1.0-4.8) k/uL APTT 49.2 H (22.0-30.0) sec BUN (9-20) mg/dL Glucose (74-99) mg/dL POC Glucose (mg/dL) 179 H 141 H (75-99) mg/dL Calcium (8.4-10.2) mg/dL 02/25/19 02/26/19 02/26/19 Range/Units 23:01 06:04 06:53 WBC (3.8-10.6) k/uL RBC (4.30-5.90) m/uL Hgb (13.0-17.5) gm/dL Hct (39.0-53.0) % Neutrophils # (1.3-7.7) k/uL Lymphocytes # (1.0-4.8) k/uL APTT (22.0-30.0) sec BUN 26 H (9-20) mg/dL Glucose 191 H (74-99) mg/dL POC Glucose (mg/dL) 139 H 197 H (75-99) mg/dL Calcium 7.6 L (8.4-10.2) mg/dL 02/26/19 02/26/19 Range/Units 06:53 06:53 WBC 15.1 H (3.8-10.6) k/uL RBC 3.71 L (4.30-5.90) m/uL Hgb 11.6 L (13.0-17.5) gm/dL Hct 35.4 L (39.0-53.0) % Neutrophils # 14.1 H (1.3-7.7) k/uL Lymphocytes # 0.4 L (1.0-4.8) k/uL APTT 50.1 H (22.0-30.0) sec BUN (9-20) mg/dL Glucose (74-99) mg/dL POC Glucose (mg/dL) (75-99) mg/dL Calcium (8.4-10.2) mg/dL Microbiology - Last 24 Hours (Table) 02/21/19 13:21 Blood Culture - Preliminary Blood No Growth after 96 hours 02/20/19 11:12 Blood Culture - Preliminary Blood No Growth after 120 hours 02/20/19 11:00 Blood Culture - Preliminary Blood No Growth after 120 hours Assessment and Plan (1) Paroxysmal atrial fibrillation Current Visit: Yes Status: Acute Code(s): I48.0 - PAROXYSMAL ATRIAL FIBRILLATION SNOMED Code(s): 852157868 (2) Diabetes type 2, uncontrolled Current Visit: Yes Status: Acute Code(s): E11.65 - TYPE 2 DIABETES MELLITUS WITH HYPERGLYCEMIA SNOMED Code(s): 814887855 (3) Status post Manuel fundoplication Current Visit: Yes Status: Acute Code(s): Z98.890 - OTHER SPECIFIED POSTPROCEDURAL STATES SNOMED Code(s): 843772912 Plan: Persistent atrial fibrillation back in sinus rhythm. We'll continue with Cardizem and heparin
[2019-02-26] MEDS: SIMETHICONE 40 MG/0.6 ML DROPS 2,000 MG/30 ML BOTTLE PO SCH ×4 (09:26→20:10)
[2019-02-26] MEDS: 1: MVI, ADULT NO.4 WITH VIT K 10 ML, TRACE (CONC-1ML/DOSE) 1 ML, POTASSIUM CHLORIDE 40 M IV SCH ×8 (09:27→22:58)
[2019-02-26 11:49] LABS: Glucose,Whole Blood 106 mg/dL (75-99)
--- NOTE | 2019-02-26 12:27 | P.PN ---
Subjective Progress Note Date: 02/26/19 CHIEF COMPLAINT: GERD HISTORY OF PRESENT ILLNESS: 78-year-old male who is status post laparoscopic Manuel fundoplication performed on 02/14/2019. Patient is also s/p exploratory laparotomy, washout of abdomen, and enterorrhaphy due to small bowel perforation on 02/20/19. Patient with NG to LIS. Patient with 550cc drainage over last 12 hours per EMR. He denies abdominal pain. He reports passing a lot of flatus this morning. He continues to have small bowel movements. WBC improving. 15.1 today. PHYSICAL EXAM: VITAL SIGNS: Reviewed. GENERAL: Well-developed in no acute distress. HEENT: NG to LIS. No sclera icterus. Extraocular movements grossly intact. Moist buccal mucosa. Head is atraumatic, normocephalic. ABDOMEN: Distended. Remains firm but does feel slightly softer than yesterday. No pain with palpation. Optifoam dressing noted to midline incision. NEUROLOGIC: Awake and alert. Oriented x 3. Cranial nerves II through XII grossly intact. ASSESSMENT: 1. GERD, S/P laparoscopic Manuel fundoplication 2. Acute gastric distention 3. Small bowel obstruction secondary to ileus, an unexpected outcome of surgery 4. Urinary retention, an unexpected outcome of surgery 5. S/p exploratory laparotomy, washout of abdomen, and enterorrhaphy due to small bowel perforation on 02/20/19, etiology unclear of perforation 6. Paroxysmal atrial fibrillation 7. Acute hypoxic respiratory failure requiring supplemental oxygen secondary to abdominal distention, fluid volume overload, and pleural effusions 8. Postoperative delrium, an unexpected by potential outcome of surgery and hospitalization 9. Fluid overload with pleural effusions/acute exacerbation of diastolic heart failure EF 65-70% PLAN: 1. NPO except for ice chips or hard candy sparingly. Continue TPN 2. Continue NG tube 3. Continue antibiotics. Currently on Eraxis and Zosyn. 4. Monitor WBC 5. Continue Reglan and Dulcolax suppository daily 6. Activity as tolerated. Discussed possible WIN at discharge with patient. Case management following. Nurse practitioner note has been reviewed by physician. Signing provider agrees with the documented findings, assessment, and plan of care. Objective - Vital Signs Vital signs: Vital Signs Temp 99.2 F 02/26/19 05:00 Pulse 109 H 02/26/19 10:00 Resp 33 H 02/26/19 10:00 BP 147/74 02/26/19 10:00 Pulse Ox 96 02/26/19 10:00 Intake & Output 02/25/19 02/26/19 02/26/19 18:59 06:59 18:59 Intake Total 2145.523 1471.13 405 Output Total 2675 2370 725 Balance -529.477 -898.87 -320 Intake: IV 1891.66 1411.13 255 Anidulafungin 100 mg In 100 100 Sodium Chloride 0.9% 100 ml @ 84 mls/hr IVPB DAILY [facility] Rx#:[id number] Diltiazem 125 mg In 10 Sodium Chloride 0.9% 100 ml @ Per Protocol IV .Q0M [facility] Rx#:[id number] Fat Emulsion 20% 250 ml @ 41.66 229.13 20.833 mls/hr IV DAILY@ 1600 [facility] Rx#:[id number] Sodium Chloride 0.9% 1, 720 162 70 000 ml @ 20 mls/hr IV . Q24H [facility] Rx#:[id number] TPN 1020 1020 85 Intake, IV Titration 253.863 150 Amount Heparin Sod,Pork in 0.45% 153.863 NaCl 25,000 unit In 0.45 % NaCl 1 250ml.bag @ 11. 82 UNITS/KG/HR 10 mls/hr IV .Q24H [facility] Rx#: [id number] Piperacillin-Tazobactam 3 50 .375 gm In Sodium Chloride 0.9% 100 ml @ 25 mls/hr IVPB Q8H [facility] Rx#: [id number] Potassium Chloride 10 meq 100 In Water For Injection 1 100ml.bag @ 100 mls/hr IVPB Q1H [facility] Rx#: [id number] Potassium Chloride 20 meq 100 In Water For Injection 1 100ml.bag @ 50 mls/hr IVPB ONCE ONE Rx#: [id number] Other 60 Output: Gastric Drainage 650 550 Urine 2025 1820 725 Other: Voiding Method Indwelling Catheter Indwelling Catheter # Bowel Movements 1 - Labs CBC & Chem 7: 02/26/19 06:53 02/26/19 06:53 Labs: Abnormal Lab Results - Last 24 Hours (Table) 02/25/19 02/25/19 02/25/19 Range/Units 12:28 13:08 17:14 WBC (3.8-10.6) k/uL RBC (4.30-5.90) m/uL Hgb (13.0-17.5) gm/dL Hct (39.0-53.0) % Neutrophils # (1.3-7.7) k/uL Lymphocytes # (1.0-4.8) k/uL APTT 49.2 H (22.0-30.0) sec BUN (9-20) mg/dL Glucose (74-99) mg/dL POC Glucose (mg/dL) 179 H 141 H (75-99) mg/dL Calcium (8.4-10.2) mg/dL 02/25/19 02/26/19 02/26/19 Range/Units 23:01 06:04 06:53 WBC (3.8-10.6) k/uL RBC (4.30-5.90) m/uL Hgb (13.0-17.5) gm/dL Hct (39.0-53.0) % Neutrophils # (1.3-7.7) k/uL Lymphocytes # (1.0-4.8) k/uL APTT (22.0-30.0) sec BUN 26 H (9-20) mg/dL Glucose 191 H (74-99) mg/dL POC Glucose (mg/dL) 139 H 197 H (75-99) mg/dL Calcium 7.6 L (8.4-10.2) mg/dL 02/26/19 02/26/19 Range/Units 06:53 06:53 WBC 15.1 H (3.8-10.6) k/uL RBC 3.71 L (4.30-5.90) m/uL Hgb 11.6 L (13.0-17.5) gm/dL Hct 35.4 L (39.0-53.0) % Neutrophils # 14.1 H (1.3-7.7) k/uL Lymphocytes # 0.4 L (1.0-4.8) k/uL APTT 50.1 H (22.0-30.0) sec BUN (9-20) mg/dL Glucose (74-99) mg/dL POC Glucose (mg/dL) (75-99) mg/dL Calcium (8.4-10.2) mg/dL Microbiology - Last 24 Hours (Table) 02/21/19 13:21 Blood Culture - Preliminary Blood No Growth after 96 hours 02/20/19 11:12 Blood Culture - Preliminary Blood No Growth after 120 hours 02/20/19 11:00 Blood Culture - Preliminary Blood No Growth after 120 hours
--- NOTE | 2019-02-26 14:56 | PN ---
PROGRESS NOTE DATE OF SERVICE: 02/26/2019 REASON FOR FOLLOWUP: Secondary peritonitis from perforated small bowel. INTERVAL HISTORY: The patient is currently afebrile. The patient has been breathing more comfortably. The patient does have a cough. It seems [id number] but not bringing up any sputum. No nausea, no vomiting. Denies any worsening abdominal pain, no diarrhea. PHYSICAL EXAMINATION: Blood pressure 154/91 with a pulse of 103, temperature 98, he is 96% 2 L nasal cannula. General description is an elderly male, lying in bed in no distress. RESPIRATORY SYSTEM: Unlabored breathing. Decreased breath sounds at the bases, no wheeze. HEART S1, S2. Regular rate and rhythm. ABDOMEN: Soft, no tenderness. LABS: Hemoglobin is 11.1, white count 15.9, BUN of 26, creatinine is 0.97. Blood culture has been negative so far. DIAGNOSTIC IMPRESSION AND PLAN: Patient with secondary peritonitis from perforated bowel, status post repair of the same. Patient's white count is showing a downward trend. Blood culture has been negative so far. Covered with Zosyn and Eraxis; to continue while monitored clinical course closely. Continue supportive care. MMODL / IJN: [id number] /
--- NOTE | 2019-02-26 15:38 | P.PN ---
Subjective Progress Note Date: 02/26/19 On 02/26/2019 the patient is postop day #12 following Manuel fundoplication. The patient is also postop day #6 following a repair of a small bowel perforation. He is still in the intensive care unit. The patient remains nothing by mouth. He is receiving PPN for nutritional support. He is producing approximately 1200 mL of gastric output over the past 24 hours. This output has dropped considerably since yesterday. The patient is diuresing with IV Lasix. He is currently a negative fluid balance. Lower some edema is improving. Penile and scrotal edema is also improving. Abdomen is less tense and the surgical wound site is dry clean and intact. No bowel movement with activity at this point in time. No chest pain. No cough or sputum production. Abdominal x-ray shows nonspecific bowel pattern. Chest x-ray shows bilateral pleural effusions without any interval worsening. The patient is currently on oxygen on 2 L of oxygen by nasal cannula and pulse ox is around 95%. Afebrile. Hemodynamically stable. Still covered with the same antibiotic which includes Eraxis and IV Zosyn. No other significant issues over the past 24 hours. Mental status is stable. Cardiac rhythm is stable and in sinus rhythm. He remains on IV heparin. Objective - Vital Signs Vital signs: Vital Signs Temp 99.2 F 02/26/19 05:00 Pulse 107 H 02/26/19 15:00 Resp 33 H 02/26/19 15:00 BP 162/84 02/26/19 15:00 Pulse Ox 96 02/26/19 15:00 Intake & Output 02/25/19 02/26/19 02/26/19 18:59 06:59 18:59 Intake Total 2145.523 1471.13 935 Output Total 2675 2370 1320 Balance -529.477 -898.87 -385 Weight 85.4 kg Intake: IV 1891.66 1411.13 635 Anidulafungin 100 mg In 100 100 Sodium Chloride 0.9% 100 ml @ 84 mls/hr IVPB DAILY [facility] Rx#:[id number] Diltiazem 125 mg In 10 Sodium Chloride 0.9% 100 ml @ Per Protocol IV .Q0M [facility] Rx#:[id number] Fat Emulsion 20% 250 ml @ 41.66 229.13 20.833 mls/hr IV DAILY@ 1600 [facility] Rx#:[id number] Mvi, Adult No.4 with Vit 340 K 10 ml Trace (Conc-1Ml/ Dose) 1 ml In Amino Acid 5%-D15w+Lytes*E* 1,000 ml @ 85 mls/hr IV .BY DURATION [facility] Rx#: [id number] Sodium Chloride 0.9% 1, 720 162 110 000 ml @ 20 mls/hr IV . Q24H [facility] Rx#:[id number] TPN 1020 1020 85 Intake, IV Titration 253.863 300 Amount Heparin Sod,Pork in 0.45% 153.863 NaCl 25,000 unit In 0.45 % NaCl 1 250ml.bag @ 11. 82 UNITS/KG/HR 10 mls/hr IV .Q24H [facility] Rx#: [id number] Piperacillin-Tazobactam 3 100 .375 gm In Sodium Chloride 0.9% 100 ml @ 25 mls/hr IVPB Q8H [facility] Rx#: [id number] Potassium Chloride 10 meq 200 In Water For Injection 1 100ml.bag @ 100 mls/hr IVPB Q1H [facility] Rx#: [id number] Potassium Chloride 20 meq 100 In Water For Injection 1 100ml.bag @ 50 mls/hr IVPB ONCE ONE Rx#: [id number] Other 60 Output: Gastric Drainage 650 550 Urine 2024 1820 1320 Other: Voiding Method Indwelling Catheter Indwelling Catheter # Bowel Movements 1 - Exam Gen. appearance he is calm and comfortable likely distress. The patient is confused and awake and alert 3 and he has a sitter in place at the bedside. Head exam was generally normal. There was no scleral icterus or corneal arcus. Mucous membranes were moist. Neck was supple and without jugular venous distension, thyromegaly, or carotid bruits. Carotids were easily palpable bilaterally. There was no adenopathy. The patient has an NG tube in place. Lungs sounds are diminished in lung bases bilaterally with diminished breath sound in the mid and lower lung madera. There is also dullness to percussion. Cardiac exam revealed the PMI to be normally situated and sized. The rhythm was regular and no extrasystoles were noted during several minutes of auscultation. The first and second heart sounds were normal and physiologic splitting of the second heart sound was noted. There were no murmurs, rubs, clicks, or gallops. Abdominal exam revealed normal bowel sounds. The abdomen was rather firm, non- tender, and without masses, organomegaly, or appreciable enlargement of the abdominal aorta. The patient has some slight abdominal distention. Surgical wound site over the anterior abdominal wall is clean. There is a wound VAC covering the wound surface. Bowel sounds are hypoactive and absent. No direct tenderness. No rebound tenderness. No guarding. Examination of the extremities revealed easily palpable radial, femoral and pedal pulses. There was no cyanosis, clubbing or edema. Examination of the skin revealed no evidence of significant rashes, suspicious appearing nevi or other concerning lesions. Neurologically awake 3. No cranial nerve deficits. No focal neurological deficits. Pupils are equal and reactive to light. - Labs CBC & Chem 7: 02/26/19 06:53 02/26/19 06:53 Labs: Abnormal Lab Results - Last 24 Hours (Table) 02/25/19 02/25/19 02/26/19 Range/Units 17:14 23:01 06:04 WBC (3.8-10.6) k/uL RBC (4.30-5.90) m/uL Hgb (13.0-17.5) gm/dL Hct (39.0-53.0) % Neutrophils # (1.3-7.7) k/uL Lymphocytes # (1.0-4.8) k/uL APTT (22.0-30.0) sec BUN (9-20) mg/dL Glucose (74-99) mg/dL POC Glucose (mg/dL) 141 H 139 H 197 H (75-99) mg/dL Calcium (8.4-10.2) mg/dL 02/26/19 02/26/19 02/26/19 Range/Units 06:53 06:53 06:53 WBC 15.1 H (3.8-10.6) k/uL RBC 3.71 L (4.30-5.90) m/uL Hgb 11.6 L (13.0-17.5) gm/dL Hct 35.4 L (39.0-53.0) % Neutrophils # 14.1 H (1.3-7.7) k/uL Lymphocytes # 0.4 L (1.0-4.8) k/uL APTT 50.1 H (22.0-30.0) sec BUN 26 H (9-20) mg/dL Glucose 191 H (74-99) mg/dL POC Glucose (mg/dL) (75-99) mg/dL Calcium 7.6 L (8.4-10.2) mg/dL 02/26/19 Range/Units 11:37 WBC (3.8-10.6) k/uL RBC (4.30-5.90) m/uL Hgb (13.0-17.5) gm/dL Hct (39.0-53.0) % Neutrophils # (1.3-7.7) k/uL Lymphocytes # (1.0-4.8) k/uL APTT (22.0-30.0) sec BUN (9-20) mg/dL Glucose (74-99) mg/dL POC Glucose (mg/dL) 106 H (75-99) mg/dL Calcium (8.4-10.2) mg/dL Microbiology - Last 24 Hours (Table) 02/21/19 13:21 Blood Culture - Preliminary Blood No Growth after 120 hours 02/20/19 11:12 Blood Culture - Final Blood No Growth after 144 hours 02/20/19 11:00 Blood Culture - Final Blood No Growth after 144 hours Assessment and Plan Plan: 1 status post laparoscopic Manuel fundoplication. The patient is postop day #12 2 post operative small bowel obstruction/ileus, expected outcome of surgery, and the patient has an NG tube in place with ongoing gastric drainage for now. The patient has not produced significant amount of bowel activity yet. Abdomen is less distended compared to yesterday. 3 small bowel perforation, post-extremity laparotomy and repair of a perforated small bowel with 3 mm tear. The patient is postop day #6 4 NPO nutritional status and the patient has an NG tube in place 5 paroxysmal atrial fibrillation current rhythm is sinus 6 delirium, improving with Haldol and currently is more alert and appropriate. 7 bilateral pleural effusion with extensive anasarca and volume overload and currently the patient IV Lasix, and the third spacing is improving and the patient is lower extremity edema is also improving. 8 leukocytosis, improved compared to yesterday and the white cell count is down to 15.1 9 chronic normocytic anemia Plan Continue supportive care in the intensive care unit. The patient has signs of fluid overload. continue lasix 20 mg IV push every 12 hours. Continue IV Zosyn. Continue IV Eraxis . PPN for nutritional support. Haldol for delirium. Keep the NG tube in place. Clinically the patient seems to be more improved and more comfortable compared to yesterday. Continue IV Lasix. Continue IV heparin. Monitor PTT. Keep the patient nothing by mouth for now. We'll continue to follow and the patient be kept in ICU for another 24 hours.
[2019-02-26] MEDS: SODIUM CHLORIDE 0.9% 1,000 ML IV SCH (16:20)
[2019-02-26] MEDS: FAT EMULSION 20% 250 ML IV SCH (16:32)
[2019-02-26 18:31] LABS: Glucose,Whole Blood 189 mg/dL (75-99)
[2019-02-26] MEDS: INSULIN DETEMIR (LEVEMIR) 100 UNIT/ML SYR SQ SCH (20:10)
[2019-02-26] MEDS: QUEtiapine 50 MG TAB PO SCH (20:20)
[2019-02-26 23:41] LABS: Glucose,Whole Blood 174 mg/dL (75-99)
[2019-02-27] MEDS: METOCLOPRAMIDE 5 MG/ML 2 ML VIAL IVP SCH ×5 (00:02→23:57)
[2019-02-27] MEDS: INSULIN ASPART (NovoLOG) 100 UNIT/ML VIAL SQ SCH ×5 (00:02→23:58)
[2019-02-27] MEDS: PIPERACILLIN-TAZOBACTAM 3.375 GM in SODIUM CHLORIDE 0.9% 100 ML IVPB SCH ×3 (05:20→20:29)
[2019-02-27 05:39] LABS: Calcium 7.6 mg/dL (8.4-10.2); Magnesium 2.2 mg/dL (1.6-2.3); Phosphorus 3.9 mg/dL (2.5-4.5)
[2019-02-27 06:09] LABS: Glucose,Whole Blood 171 mg/dL (75-99)
[2019-02-27 07:19] LABS: Basophils # (A) 0.1 k/uL (0-0.2); Basophils % (A) 0 %; Eosinophils # (A) 0.2 k/uL (0-0.7); Eosinophils % (A) 1 %; HCT 35.5 % (39.0-53.0); HGB 11.3 gm/dL (13.0-17.5); Lymphocytes # (A) 0.5 k/uL (1.0-4.8); Lymphocytes % (A) 3 %; MCH 30.7 pg (25.0-35.0); MCHC 31.7 g/dL (31.0-37.0); Mean Platelet Volume 8.6; Monocytes # (A) 0.4 k/uL (0-1.0); Monocytes % (A) 3 %; Neutrophils # (A) 13.1 k/uL (1.3-7.7); Neutrophils % (A) 92 %; Platelet Count 381 k/uL (150-450); RBC 3.66 m/uL (4.30-5.90); RDW 13.4 % (11.5-15.5); WBC 14.3 k/uL (3.8-10.6)
[2019-02-27] MEDS: PANTOPRAZOLE 40 MG/10 ML VIAL IVP SCH (08:11)
[2019-02-27] MEDS: TAMSULOSIN 0.4 MG CAP.ER.24H PO SCH (08:12)
[2019-02-27] MEDS: FUROSEMIDE 10 MG/ML 2 ML VIAL IV SCH ×2 (08:12→20:30)
[2019-02-27] MEDS: BISACODYL 10 MG SUPP RECTAL SCH (08:12)
[2019-02-27] MEDS: ACETAMINOPHEN TAB 325 MG TAB PO SCH ×2 (08:13→20:30)
[2019-02-27] MEDS: ANIDULAFUNGIN 100 MG in SODIUM CHLORIDE 0.9% 100 ML IVPB SCH (08:13)
[2019-02-27] MEDS: SIMETHICONE 40 MG/0.6 ML DROPS 2,000 MG/30 ML BOTTLE PO SCH ×4 (08:14→20:30)
--- NOTE | 2019-02-27 09:37 | P.PN ---
Subjective Progress Note Date: 02/27/19 This is a 78-year-old gentleman status post surgery for GI reflux disease. Subsequently, patient had a repeat surgery for ruptured a small bowel perforation. We're seeing the patient for paroxysmal atrial fibrillation. Patient was initiated on IV heparin and also IV Cardizem. Currently, patient is maintaining sinus rhythm with occasional APCs and PVCs. However, patient is developed distention of the abdomen and seemed to be in distress. Patient chest x-ray showed some right-sided effusion related to assess. Patient is getting IV Lasix also for fluid overload. Surgeons are going to evaluate him regarding his distended abdomen. From [facility] standpoint we'll continue current medical therapy. 02/24/2019: Patient is maintaining sinus rhythm. He is on IV Cardizem. Patient seemed to be sometimes delirious. His abdomen still distended from ileus. Patient is on IV heparin. We'll continue current medical therapy. Patient also received IV Lasix and diuresing well. Chest x-ray shows right-sided atelectasis versus fluid. Patient is have some bowel movement. We'll continue current medical therapy and will follow 02/25/2019: This patient is been maintaining sinus rhythm. He still on IV Cardizem. His blood pressure is better controlled. Patient claims she is feeling slightly better having some bowel movements. Still has NG tube. No other cardiac arrhythmias. Will stay in the current medical therapy. As long as patient is nothing by mouth, we'll continue IV Cardizem. May switch to by mouth medications when feasible. 02/26/2019. This patient is maintaining sinus rhythm. He claims he is feeling better. Has a lot of gas and having some stools. Still has abdominal dis tention NG tube. Patient is currently on IV Cardizem and also heparin. As long as patient is nothing by mouth we'll continue current medical therapy. Chest x- ray showed some slight improvement. There appears to be right-sided pleural effusion with some effect assess. Prognosis still guarded. 02/27/2019: Patient continues to improve slowly. Had couple of bowel movements. Abdomen is still distended and patient still has NG tube. Patient is still nothing by mouth. He is on IV Cardizem and also heparin. His maintaining sinus rhythm. His blood pressure is fluctuating. He has been getting labetalol when necessary besides IV Cardizem. Denies any chest pain or shortness of breath. We'll continue current medical therapy. We'll initiate oral medications, when patient is capable of taking by mouth. Objective - Vital Signs Vital signs: Vital Signs Temp 97.7 F 02/27/19 08:00 Pulse 107 H 02/27/19 08:00 Resp 35 H 02/27/19 08:00 BP 164/89 02/27/19 08:00 Pulse Ox 95 02/27/19 08:00 Intake & Output 02/26/19 02/27/19 02/27/19 18:59 06:59 18:59 Intake Total 1756 1755.061 85 Output Total 2115 3690 75 Balance -359 -714.939 10 Weight 85.4 kg 86 kg Intake: IV 1056 1264 85 Anidulafungin 100 mg In 100 Sodium Chloride 0.9% 100 ml @ 84 mls/hr IVPB DAILY [facility] Rx#:[id number] Fat Emulsion 20% 250 ml @ 21 189 20.833 mls/hr IV DAILY@ 1600 [facility] Rx#:[id number] Mvi, Adult No.4 with Vit 680 K 10 ml Trace (Conc-1Ml/ Dose) 1 ml In Amino Acid 5%-D15w+Lytes*E* 1,000 ml @ 85 mls/hr IV .BY DURATION [facility] Rx#: [id number] Sodium Chloride 0.9% 1, 170 140 000 ml @ 20 mls/hr IV . Q24H [facility] Rx#:[id number] TPN 85 935 85 Intake, IV Titration 700 491.061 Amount Heparin Sod,Pork in 0.45% 250 191.061 NaCl 25,000 unit In 0.45 % NaCl 1 250ml.bag @ 11. 82 UNITS/KG/HR 10 mls/hr IV .Q24H [facility] Rx#: [id number] Piperacillin-Tazobactam 3 150 200 .375 gm In Sodium Chloride 0.9% 100 ml @ 25 mls/hr IVPB Q8H [facility] Rx#: [id number] Potassium Chloride 10 meq 200 In Water For Injection 1 100ml.bag @ 100 mls/hr IVPB Q1H [facility] Rx#: [id number] Potassium Chloride 10 meq 100 100 In Water For Injection 1 100ml.bag @ 100 mls/hr IVPB Q1H [facility] Rx#: [id number] Output: Gastric Drainage 400 450 Urine 1715 2020 75 Other: Voiding Method Indwelling Catheter Indwelling Catheter # Bowel Movements 1 - Exam GENERAL EXAM: Patient is alert and agitated HEENT: Normocephalic. Normal reaction of pupils, equal size, normal range of extraocular motion. No erythema or exudates in the throat. NECK: No masses, no nuchal rigidity. CHEST: No chest wall deformity. LUNGS: Equal air entry with no crackles or wheeze. HEART: S1 and S2 normal with no audible mumurs or gallops. Regular rhythm, femorals equal on both sides.. ABDOMEN: Distended SKIN: No rashes CENTRAL NERVOUS SYSTEM: No focal deficits. EXTREMITIES: No cyanosis, clubbing or edema. - Labs CBC & Chem 7: 02/27/19 05:11 02/27/19 05:11 Labs: Abnormal Lab Results - Last 24 Hours (Table) 02/26/19 02/26/19 02/26/19 Range/Units 11:37 18:20 23:30 WBC (3.8-10.6) k/uL RBC (4.30-5.90) m/uL Hgb (13.0-17.5) gm/dL Hct (39.0-53.0) % Neutrophils # (1.3-7.7) k/uL Lymphocytes # (1.0-4.8) k/uL APTT (22.0-30.0) sec BUN (9-20) mg/dL Glucose (74-99) mg/dL POC Glucose (mg/dL) 106 H 189 H 174 H (75-99) mg/dL Calcium (8.4-10.2) mg/dL 02/27/19 02/27/19 02/27/19 Range/Units 05:11 05:11 05:45 WBC 14.3 H (3.8-10.6) k/uL RBC 3.66 L (4.30-5.90) m/uL Hgb 11.3 L (13.0-17.5) gm/dL Hct 35.5 L (39.0-53.0) % Neutrophils # 13.1 H (1.3-7.7) k/uL Lymphocytes # 0.5 L (1.0-4.8) k/uL APTT 56.1 H (22.0-30.0) sec BUN 26 H (9-20) mg/dL Glucose 204 H (74-99) mg/dL POC Glucose (mg/dL) (75-99) mg/dL Calcium 7.6 L (8.4-10.2) mg/dL 02/27/19 Range/Units 05:57 WBC (3.8-10.6) k/uL RBC (4.30-5.90) m/uL Hgb (13.0-17.5) gm/dL Hct (39.0-53.0) % Neutrophils # (1.3-7.7) k/uL Lymphocytes # (1.0-4.8) k/uL APTT (22.0-30.0) sec BUN (9-20) mg/dL Glucose (74-99) mg/dL POC Glucose (mg/dL) 171 H (75-99) mg/dL Calcium (8.4-10.2) mg/dL Microbiology - Last 24 Hours (Table) 02/21/19 13:21 Blood Culture - Preliminary Blood No Growth after 120 hours 02/20/19 11:12 Blood Culture - Final Blood No Growth after 144 hours 02/20/19 11:00 Blood Culture - Final Blood No Growth after 144 hours Assessment and Plan (1) Paroxysmal atrial fibrillation Current Visit: Yes Status: Acute Code(s): I48.0 - PAROXYSMAL ATRIAL FIBRILLATION SNOMED Code(s): 211528164 (2) Diabetes type 2, uncontrolled Current Visit: Yes Status: Acute Code(s): E11.65 - TYPE 2 DIABETES MELLITUS WITH HYPERGLYCEMIA SNOMED Code(s): 866367451 (3) Status post Manuel fundoplication Current Visit: Yes Status: Acute Code(s): Z98.890 - OTHER SPECIFIED POSTPROCEDURAL STATES SNOMED Code(s): 988828110 Plan: Maintaining sinus rhythm. Still on IV Cardizem and heparin. Patient is having some bowel movements that seemed some improvement.
[2019-02-27] MEDS: 1: MVI, ADULT NO.4 WITH VIT K 10 ML, TRACE (CONC-1ML/DOSE) 1 ML, POTASSIUM CHLORIDE 40 M IV SCH ×8 (10:00→23:08)
--- NOTE | 2019-02-27 11:13 | XR ---
EXAMINATION TYPE: XR chest 1V portable DATE OF EXAM: 02/27/2019 COMPARISON: Prior chest x-ray 02/26/2019 HISTORY: Shortness of breath TECHNIQUE: Single frontal view of the chest is obtained. FINDINGS: Orogastric tube is present with the distal tip overlying the stomach in the left upper xiomara drant. Right sided central venous catheter is in place, distal tip overlying the right atrium. There is no evident pneumothorax. Bibasilar increased density persists, there is perihilar density greater on the right as on prior exam. Heart size is stable and enlarged. IMPRESSION: Findings are similar to prior exam, correlate for congestive heart failure, pneumonia, t here may be pleural effusions. Prominent right hilum be technical, patient is rotated.
--- NOTE | 2019-02-27 11:35 | P.PN ---
Subjective Progress Note Date: 02/27/19 Principal diagnosis: Status post laparoscopic Manuel fundoplication, postoperative small bowel obstruction/ileus, and small bowel perforation, status post laparotomy and repair On 02/26/2019 the patient is postop day #12 following Manuel fundoplication. The patient is also postop day #6 following a repair of a small bowel perforation. He is still in the intensive care unit. The patient remains nothing by mouth. He is receiving PPN for nutritional support. He is producing approximately 1200 mL of gastric output over the past 24 hours. This output has dropped considerably since yesterday. The patient is diuresing with IV Lasix. He is currently a negative fluid balance. Lower some edema is improving. Penile and scrotal edema is also improving. Abdomen is less tense and the surgical wound site is dry clean and intact. No bowel movement with activity at this point in time. No chest pain. No cough or sputum production. Abdominal x-ray shows nonspecific bowel pattern. Chest x-ray shows bilateral pleural effusions without any interval worsening. The patient is currently on oxygen on 2 L of oxygen by nasal cannula and pulse ox is around 95%. Afebrile. Hemodynamically stable. Still covered with the same antibiotic which includes Eraxis and IV Zosyn. No other significant issues over the past 24 hours. Mental status is stable. Cardiac rhythm is stable and in sinus rhythm. He remains on IV heparin. On 02/27/2019 patient seen in follow-up in intensive care unit, he is awake and alert, oriented 3, no signs of delirium. NG tube output is decreasing in amount, down to 850 ML over last 24 hours, no complaints of shortness of breath, patient is just on 2 L of oxygen is pulse ox is 97%, remains on IV diuretics, he is diuresing, and patient has produced 3700 mL of urine over last 24 hours, abdominal distention has improved, abdomen is soft, she has passed multiple bowel movements. Patient remains on ice chips only at this time. He has ambulated in the hallway, apparently tolerated it very well. Remains in sinus mechanism with a rate of 96 lung sounds are clear, diminished at the bases, follow-up chest x-ray today shows bibasilar increased density on the basis of bilateral pleural effusions. Labs have been reviewed, showing white blood cell count of 14.3, she is to down trend, with a hemoglobin of 11.3, electrolytes are within normal limits, BUN of 26 and creatinine 0.95. Urine and blood culture showed no growth, patient remains on Eraxis and Zosyn for antibiotic coverage, remains on PPN and lipid infusions. Heparin drip for anticoagulation. Objective - Vital Signs Vital signs: Vital Signs Temp 97.7 F 02/27/19 08:00 Pulse 96 02/27/19 10:00 Resp 34 H 02/27/19 10:00 BP 151/80 02/27/19 10:00 Pulse Ox 97 02/27/19 10:00 Intake & Output 02/26/19 02/27/19 02/27/19 18:59 06:59 18:59 Intake Total 1756 1755.061 460 Output Total 2635 0290 935 Balance -359 714.93 -226 Weight 85.4 kg 86 kg Intake: IV 1056 1264 360 Anidulafungin 100 mg In 100 Sodium Chloride 0.9% 100 ml @ 84 mls/hr IVPB DAILY [facility] Rx#:[id number] Fat Emulsion 20% 250 ml @ 21 189 20.833 mls/hr IV DAILY@ 1600 [facility] Rx#:[id number] Mvi, Adult No.4 with Vit 680 K 10 ml Trace (Conc-1Ml/ Dose) 1 ml In Amino Acid 5%-D15w+Lytes*E* 1,000 ml @ 85 mls/hr IV .BY DURATION [facility] Rx#: [id number] Sodium Chloride 0.9% 1, 170 140 20 000 ml @ 20 mls/hr IV . Q24H [facility] Rx#:[id number] TPN 85 935 340 Intake, IV Titration 700 491.061 100 Amount Anidulafungin 100 mg In 100 Sodium Chloride 0.9% 100 ml @ 84 mls/hr IVPB DAILY [facility] Rx#:[id number] Heparin Sod,Pork in 0.45% 250 191.061 NaCl 25,000 unit In 0.45 % NaCl 1 250ml.bag @ 11. 82 UNITS/KG/HR 10 mls/hr IV .Q24H [facility] Rx#: [id number] Piperacillin-Tazobactam 3 150 200 .375 gm In Sodium Chloride 0.9% 100 ml @ 25 mls/hr IVPB Q8H [facility] Rx#: [id number] Potassium Chloride 10 meq 200 In Water For Injection 1 100ml.bag @ 100 mls/hr IVPB Q1H [facility] Rx#: [id number] Potassium Chloride 10 meq 100 100 In Water For Injection 1 100ml.bag @ 100 mls/hr IVPB Q1H [facility] Rx#: [id number] Output: Gastric Drainage 400 450 Urine 1715 2020 935 Other: Voiding Method Indwelling Catheter Indwelling Catheter # Bowel Movements 1 - Exam GENERAL EXAM: Alert, very pleasant, 70-year-old white male, 2 L of oxygen with a pulse ox of 97% comfortable in no apparent distress. HEAD: Normocephalic/atraumatic. EYES: Normal reaction of pupils, equal size. Conjunctiva pink, sclera white. NOSE: Clear with pink turbinates. THROAT: No erythema or exudates. NECK: No masses, no JVD, no thyroid enlargement, no adenopathy. CHEST: No chest wall deformity. Symmetrical expansion. LUNGS: Equal air entry with diminished breath sounds at the bases, with a few scattered crackles CVS: Regular rate and rhythm, normal S1 and S2, no gallops, no murmurs, no rubs ABDOMEN: Soft, nontender. No hepatosplenomegaly, normal bowel sounds, no guarding or rigidity. Midabdominal incision is covered with a surgical dressing, abdomen is significantly improved in terms of abdominal distention and tightness. EXTREMITIES: No clubbing, no edema, no cyanosis, 2+ pulses and upper and lower extremities. MUSCULOSKELETAL: Muscle strength and tone normal. SPINE: No scoliosis or deformity SKIN: No rashes CENTRAL NERVOUS SYSTEM: Alert and oriented -3. No focal deficits, tone is normal in all 4 extremities. PSYCHIATRIC: Alert and oriented -3. Appropriate affect. Intact judgment and insight. - Labs CBC & Chem 7: 02/27/19 05:11 02/27/19 05:11 Labs: Abnormal Lab Results - Last 24 Hours (Table) 02/26/19 02/26/19 02/26/19 Range/Units 11:37 18:20 23:30 WBC (3.8-10.6) k/uL RBC (4.30-5.90) m/uL Hgb (13.0-17.5) gm/dL Hct (39.0-53.0) % Neutrophils # (1.3-7.7) k/uL Lymphocytes # (1.0-4.8) k/uL APTT (22.0-30.0) sec BUN (9-20) mg/dL Glucose (74-99) mg/dL POC Glucose (mg/dL) 106 H 189 H 174 H (75-99) mg/dL Calcium (8.4-10.2) mg/dL 02/27/19 02/27/19 02/27/19 Range/Units 05:11 05:11 05:45 WBC 14.3 H (3.8-10.6) k/uL RBC 3.66 L (4.30-5.90) m/uL Hgb 11.3 L (13.0-17.5) gm/dL Hct 35.5 L (39.0-53.0) % Neutrophils # 13.1 H (1.3-7.7) k/uL Lymphocytes # 0.5 L (1.0-4.8) k/uL APTT 56.1 H (22.0-30.0) sec BUN 26 H (9-20) mg/dL Glucose 204 H (74-99) mg/dL POC Glucose (mg/dL) (75-99) mg/dL Calcium 7.6 L (8.4-10.2) mg/dL 02/27/19 Range/Units 05:57 WBC (3.8-10.6) k/uL RBC (4.30-5.90) m/uL Hgb (13.0-17.5) gm/dL Hct (39.0-53.0) % Neutrophils # (1.3-7.7) k/uL Lymphocytes # (1.0-4.8) k/uL APTT (22.0-30.0) sec BUN (9-20) mg/dL Glucose (74-99) mg/dL POC Glucose (mg/dL) 171 H (75-99) mg/dL Calcium (8.4-10.2) mg/dL Microbiology - Last 24 Hours (Table) 02/21/19 13:21 Blood Culture - Preliminary Blood No Growth after 120 hours 02/20/19 11:12 Blood Culture - Final Blood No Growth after 144 hours 02/20/19 11:00 Blood Culture - Final Blood No Growth after 144 hours Assessment and Plan Plan: Assessment: 1 status post laparoscopic Manuel fundoplication. The patient is postop day #13 2 post operative small bowel obstruction/ileus, expected outcome of surgery, and the patient has an NG tube in place with ongoing gastric drainage for now. Abdomen is less distended compared to yesterday. 3 small bowel perforation, post-extremity laparotomy and repair of a perforated small bowel with 3 mm tear. The patient is postop day #6 4 NPO nutritional status and the patient has an NG tube in place 5 paroxysmal atrial fibrillation current rhythm is sinus 6 delirium, improving with Haldol and currently is more alert and appropriate. 7 bilateral pleural effusion with extensive anasarca and volume overload and currently the patient IV Lasix, and the third spacing is improving and the patient is lower extremity edema is also improving. 8 leukocytosis, improved compared to yesterday and the white cell count is down to 15.1 9 chronic normocytic anemia Plan: We will continue with IV diuresis, patient is breathing easier, FiO2 is down to 2 L, he is tolerating ambulation, and follow-up chest x-ray still shows residual bilateral pleural effusions. NG tube output is decreasing in amount, patient is passing bowel movements, anticipate removal of NG tube likely today. No complaints of shortness of breath, no chest pain, no abdominal pain, abdomen distention is significantly improved. Leukocytosis is down trending, no fever or chills. Remains on the same antibiotics, ID service is following, cultures remain negative. Clinically improving, has been maintaining sinus mechanism, has never had A. fib in the past up until this episode, we'll check with cardio logy about discontinuation of heparin drip. I performed a history & physical examination of the patient and discussed their management with my nurse practitioner, Kimberly Lord. I reviewed the nurse practitioner's note and agree with the documented findings and plan of care. Lung sounds are positive for clear breath sounds with diminished breath sounds at the bases. The findings and the impression was discussed with the patient. I attest to the documentation by the nurse practitioner. Time with Patient: Less than 30
[2019-02-27 11:48] LABS: Glucose,Whole Blood 159 mg/dL (75-99)
--- NOTE | 2019-02-27 11:56 | CDI ---
Unexpected post surgical condition related to pt's underlyng comorbidies Documentation Clarification Form Date: 02/25/2019 11:54:00 AM From: Radha Simmons RN, CCDS Admit Date: 02/16/2019 9:23:00 AM Patient Name: Calvin Davies Visit Number: [id number] Discharge Date: ATTENTION: The Clinical Documentation Specialists (CDI) and [facility] Coding Staff appreciate your assistance in clarifying documentation. Please respond to the clarification below the line at the bottom and electronically sign. The CDI & [facility] Coding staff will review the response and follow-up if needed. Please note: Queries are made part of the Legal Health Record. If you have any questions, please contact the author of this message via ITS. Dr. Bridgette Muniz Atrial Fibrillation is documented in the ongoing progress notes starting on 02/18/19 and further clarification is needed. History/Risk Factors: Diabetes Mellitus, GERD, Hypertension Clinical Indicators: 78-year-old male who present o 02/14/19 for elective Laparoscopic Manuel fundoplication. On 02/18/19 postop day #4 he developed atrial fibrillation with RVR and was started on a Cardizem drip after 7.5 mg bolus. He converted back into sinus rhythm. On 02/19/19 he went back into atrial fibrillation. EKG/telemetry: Atrial fibrillation wit RVR rate 130bpm vital signs 137/73 130 28 02/20/19 Patient was taken to surgery for an exploratory laparotomy, washout of abdomen and Enterorrhaphy for a small bowel perforation. 02/22/19 Cardiology consult has noted patient has been having intermittent atrial fibrillation treated with IV Cardizem. Treatment: Telemetry monitoring Cardizem drip Heparin drip In your professional opinion, please clarify if the paroxysmal atrial fibrillation is: An expected port-procedure or post-surgical condition An unexpected port-procedural or post-surgical condition related to the patient underlying medical conditions or cor morbidities. Other, Please specify Clinical unable to determine (Last Revision: September 2017) MTDD
--- NOTE | 2019-02-27 12:46 | P.PN ---
Subjective Progress Note Date: 02/27/19 CHIEF COMPLAINT: GERD HISTORY OF PRESENT ILLNESS: 78-year-old male who is status post laparoscopic Manuel fundoplication performed on 02/14/2019. Patient is also s/p exploratory laparotomy, washout of abdomen, and enterorrhaphy due to small bowel perforation on 02/20/19. Patient with NG to LIS. 450cc overnight drainage. He reports mild abdominal pain. He is passing flatus and having bowel movements. PHYSICAL EXAM: VITAL SIGNS: Reviewed. GENERAL: Well-developed in no acute distress. HEENT: NG to LIS. No sclera icterus. Extraocular movements grossly intact. Moist buccal mucosa. Head is atraumatic, normocephalic. ABDOMEN: Less distention. Nontender with palpation. Optifoam dressing noted to midline incision. NEUROLOGIC: Awake and alert. Oriented x 3. Cranial nerves II through XII grossly intact. ASSESSMENT: 1. GERD, S/P laparoscopic Manuel fundoplication 2. Acute gastric distention 3. Small bowel obstruction secondary to ileus, an unexpected outcome of surgery 4. Urinary retention, an unexpected outcome of surgery 5. S/p exploratory laparotomy, washout of abdomen, and enterorrhaphy due to small bowel perforation on 02/20/19, etiology unclear of perforation 6. Paroxysmal atrial fibrillation 7. Acute hypoxic respiratory failure requiring supplemental oxygen secondary to abdominal distention, fluid volume overload, and pleural effusions 8. Postoperative delrium, an unexpected by potential outcome of surgery and hospitalization 9. Fluid overload with pleural effusions/acute exacerbation of diastolic heart failure EF 65-70% PLAN: 1. Discontinue NG tube 2. Begin full liquid diet 3. Continue antibiotics 4. Monitor WBC Nurse practitioner note has been reviewed by physician. Signing provider agrees with the documented findings, assessment, and plan of care. Objective - Vital Signs Vital signs: Vital Signs Temp 97.7 F 02/27/19 08:00 Pulse 108 H 02/27/19 12:00 Resp 30 H 02/27/19 12:00 BP 143/78 02/27/19 12:00 Pulse Ox 95 02/27/19 12:00 Intake & Output 02/26/19 02/27/19 02/27/19 18:59 06:59 18:59 Intake Total 1756 1755.061 565 Output Total 2115 8880 1010 Balance -359 -714.939 -809 Weight 85.4 kg 86 kg Intake: IV 1056 1264 465 Anidulafungin 100 mg In 100 Sodium Chloride 0.9% 100 ml @ 84 mls/hr IVPB DAILY [facility] Rx#:[id number] Fat Emulsion 20% 250 ml @ 21 189 20.833 mls/hr IV DAILY@ 1600 [facility] Rx#:[id number] Mvi, Adult No.4 with Vit 680 K 10 ml Trace (Conc-1Ml/ Dose) 1 ml In Amino Acid 5%-D15w+Lytes*E* 1,000 ml @ 85 mls/hr IV .BY DURATION [facility] Rx#: [id number] Sodium Chloride 0.9% 1, 170 140 40 000 ml @ 20 mls/hr IV . Q24H [facility] Rx#:[id number] TPN 85 935 425 Intake, IV Titration 700 491.061 100 Amount Anidulafungin 100 mg In 100 Sodium Chloride 0.9% 100 ml @ 84 mls/hr IVPB DAILY [facility] Rx#:[id number] Heparin Sod,Pork in 0.45% 250 191.061 NaCl 25,000 unit In 0.45 % NaCl 1 250ml.bag @ 11. 82 UNITS/KG/HR 10 mls/hr IV .Q24H [facility] Rx#: [id number] Piperacillin-Tazobactam 3 150 200 .375 gm In Sodium Chloride 0.9% 100 ml @ 25 mls/hr IVPB Q8H [facility] Rx#: [id number] Potassium Chloride 10 meq 200 In Water For Injection 1 100ml.bag @ 100 mls/hr IVPB Q1H [facility] Rx#: [id number] Potassium Chloride 10 meq 100 100 In Water For Injection 1 100ml.bag @ 100 mls/hr IVPB Q1H [facility] Rx#: [id number] Output: Gastric Drainage 400 450 Urine 1715 2020 1010 Other: Voiding Method Indwelling Catheter Indwelling Catheter # Bowel Movements 1 - Labs CBC & Chem 7: 02/27/19 05:11 02/27/19 05:11 Labs: Abnormal Lab Results - Last 24 Hours (Table) 02/26/19 02/26/19 02/27/19 Range/Units 18:20 23:30 05:11 WBC (3.8-10.6) k/uL RBC (4.30-5.90) m/uL Hgb (13.0-17.5) gm/dL Hct (39.0-53.0) % Neutrophils # (1.3-7.7) k/uL Lymphocytes # (1.0-4.8) k/uL APTT (22.0-30.0) sec BUN 26 H (9-20) mg/dL Glucose 204 H (74-99) mg/dL POC Glucose (mg/dL) 189 H 174 H (75-99) mg/dL Calcium 7.6 L (8.4-10.2) mg/dL 02/27/19 02/27/19 02/27/19 Range/Units 05:11 05:45 05:57 WBC 14.3 H (3.8-10.6) k/uL RBC 3.66 L (4.30-5.90) m/uL Hgb 11.3 L (13.0-17.5) gm/dL Hct 35.5 L (39.0-53.0) % Neutrophils # 13.1 H (1.3-7.7) k/uL Lymphocytes # 0.5 L (1.0-4.8) k/uL APTT 56.1 H (22.0-30.0) sec BUN (9-20) mg/dL Glucose (74-99) mg/dL POC Glucose (mg/dL) 171 H (75-99) mg/dL Calcium (8.4-10.2) mg/dL 02/27/19 Range/Units 11:36 WBC (3.8-10.6) k/uL RBC (4.30-5.90) m/uL Hgb (13.0-17.5) gm/dL Hct (39.0-53.0) % Neutrophils # (1.3-7.7) k/uL Lymphocytes # (1.0-4.8) k/uL APTT (22.0-30.0) sec BUN (9-20) mg/dL Glucose (74-99) mg/dL POC Glucose (mg/dL) 159 H (75-99) mg/dL Calcium (8.4-10.2) mg/dL Microbiology - Last 24 Hours (Table) 02/21/19 13:21 Blood Culture - Preliminary Blood No Growth after 120 hours 02/20/19 11:12 Blood Culture - Final Blood No Growth after 144 hours 02/20/19 11:00 Blood Culture - Final Blood No Growth after 144 hours
[2019-02-27] MEDS: CLEVIDIPINE BUTYRATE 25 MG in EMPTY BAG 1 BAG IV SCH (13:11)
[2019-02-27] MEDS: HEPARIN SOD,PORK IN 0.45% NACL 25,000 UNIT in 0.45% NACL 1 250ML.BAG IV SCH ×2 (13:31→20:34)
[2019-02-27 13:33] LABS: Glucose,Whole Blood 157 mg/dL (75-99)
[2019-02-27] MEDS: LABETALOL 5 MG/ML VIAL MDV IVP PRN (14:28)
[2019-02-27] MEDS: FAT EMULSION 20% 250 ML IV SCH (16:46)
[2019-02-27 17:33] LABS: Glucose,Whole Blood 162 mg/dL (75-99)
--- NOTE | 2019-02-27 18:51 | PN ---
PROGRESS NOTE DATE OF SERVICE: 02/27/2019. REASON FOR FOLLOW UP: Secondary peritonitis from a perforated small bowel. INTERVAL HISTORY: The patient is currently afebrile. Patient has been breathing comfortably. He is feeling slightly better today. His breathing has improved. He is able to use incentive spirometry more. No chest pain. Occasional cough. Denies any worsening abdominal pain or diarrhea. PHYSICAL EXAMINATION: Blood pressure 142/77 with a pulse of 103. Temperature is 97.7. He is 92% on room air. General description is an elderly male up in the chair in no distress. Respiratory system: Unlabored breathing. Clear to auscultation anteriorly. Heart S1, S2. Regular rate and rhythm. Abdomen soft. Mild distention. No guarding or rigidity. LABS: Hemoglobin is 11.3, white count 14.3, BUN of 26, creatinine 0.95. Blood culture has been negative. DIAGNOSTIC IMPRESSION AND PLAN: Patient with secondary peritonitis from small bowel perforation status post operative repair. So far the patient seemed to have shown some clinical improvement. His white count showing a downward trend. He has been afebrile. Blood culture remains to be negative. Continue with Zosyn and Eraxis at this point while monitoring his clinical course closely. Continue supportive care. MMODL / IJN: [id number] /
[2019-02-27] MEDS: SODIUM CHLORIDE 0.9% 1,000 ML IV SCH (20:28)
[2019-02-27] MEDS: INSULIN DETEMIR (LEVEMIR) 100 UNIT/ML SYR SQ SCH (20:29)
[2019-02-27] MEDS: QUEtiapine 50 MG TAB PO SCH (20:30)
--- NOTE | 2019-02-27 21:38 | P.PN ---
Subjective Progress Note Date: 02/26/19 Principal diagnosis: Status post Manuel fundoplication patient is status post Manuel fundoplication 02/16/2019 patient is tachycardic patient abdomen is distended because of constipation grade halogenated repeat CAT scan which did not show any significant blood bowel blockage but does have significant air. Patient may benefit from medications for constipation. We'll obtain an EKG TSH. It appears to be sinus tachycardia clinically. and is in distress because of abdominal distention but able to walk around patient is hypoxic at 90% obtain a chest x-ray as well although clinically patient chest is clear. 02/17/2019 Patient is still tachycardic with heart rate in 90s. Patient is status post Manuel fundoplication on 02/14/2019. Patient is otherwise awake alert and oriented 3. Currently in the intensive care unit. Currently being continued on NG tube due ileus. Abdominal still distended. 02/18/2019 Patient seems to be confused today. Patient went into atrial fibrillation with RVR and was started on Cardizem drip. Repeat CT abdomen and pelvis showed bilateral moderate pleural effusion and bibasilar pulmonary infiltrates. New compared to previous exam. Patient was started on antibiotics no cough Zosyn. Otherwise patient's abdominal still distended. Patient is being continued on NG tube for decompression. Patient has been afebrile. WBC count slightly elevated to 10.8. No bowel movement or passing of flatus at this time. 02/19/2019 Patient is awake alert and oriented 3 today. Patient says that she did pass flatness this morning. Bowel sounds are sluggish. Complains of mild abdominal pain. No fever no chills. Heart rate is better controlled and added Imdur has been discontinued. Patient is being continued on antibiotics Zosyn. NG tube is in place with bilious drainage. 02 20 2019 Patient says that he still having abdominal pain 3 out of 10. Due to overall slow improvement and worsening leukocytosis with WBC count 17.5 today, repeat CT abdomen and pelvis was done showed increasing ascites and small bowel inflammation. No evidence of perforation. Patient was taken to walk but expiratory laparotomy and possible peritonitis Patient has been afebrile. NG tube is in place with bilious drainage. No chest pain or shortness of breath. No bowel movement. 02/21/2019 Patient says that his abdominal pain is better. Has not passed flatness. Otherwise no complaints of nausea vomiting. Patient was started on TPN. Leukocytosis is still present. Heart rate is controlled. No fever no chills. Mentation is much improved today. 02/22/2019 Status post repair of small bowel perforation requiring exploratory laparotomy. Postoperative day 2. Patient is currently in the MICU. No events of chest pain or abdominal pain i ncreases improving. Continued on IV hydration and TPN. Patient has been afebrile. Otherwise patient went into A. fib today morning and was started back on Cardizem. Chest x-ray showed congestive heart. Small pleural effusions. Pelvis count is trending up to 23.4. Currently on antibiotics in Zosyn and micafungin. 02/23/2019 Patient is currently in MICU. Lying in the bed confused and delirious. NG tube is in place. Patient is being continued on TPN f Abdomen seems distended today. No bowel movement so far. Patient is being continued on Cardizem drip. No fever no chills otherwise. Leukocytosis slightly improved to 22.7 today. Denies chest pain. No shortness of breath. 02/24/2019 Patient is currently in the MICU. Mental status is better compared to yesterday. Awake alert and oriented. NG tube with low suction is in place. Denied any complaints of chest pain or shortness of breath. Patient is on Cardizem drip for rate control. Leukocytosis is improving with WBC count 19.1 today. Otherwise patient did have a small bowel movement last night. Abdomen is still distended. No fever no chills. Antibiotics are being continued on Zosyn and micafungin. 02/25/2019 Patient is demanding the MICU. Mental status is much improved today. Patient was transferred to bedside recliner today. No fever no chills. Overnight patient did have small bowel movements and was able to pass flatus. Abdominal distention slightly improved but still distended. No nausea no vomiting. NG tube in place with low intermittent suction. Continued on antibiotics. Heart rate is better controlled. Leukocytosis improved to 16.7 today. 02/26/2019 Patient denied any complaints of chest pain or shortness of breath. Patient is currently in the MICU. Awake alert oriented 3. Currently on the recliner. Patient did have small bowel movements and is passing flatus. Heart rate is fairly controlled. No fever no chills. Leukocytosis is improving to 5.1 today. Patient continues to be on NG tube and TPN. Current Medications reviewed. Objective - Vital Signs Vital signs: Vital Signs Temp 99.2 F 02/26/19 05:00 Pulse 104 H 02/26/19 11:00 Resp 39 H 02/26/19 11:00 BP 147/76 02/26/19 11:00 Pulse Ox 96 02/26/19 11:00 Intake & Output 02/25/19 02/26/19 02/26/19 18:59 06:59 18:59 Intake Total 2145.523 1471.13 695 Output Total 2675 2370 1225 Balance -529.477 -898.87 -530 Weight 85.4 kg Intake: IV 1891.66 1411.13 445 Anidulafungin 100 mg In 100 100 Sodium Chloride 0.9% 100 ml @ 84 mls/hr IVPB DAILY [facility] Rx#:[id number] Diltiazem 125 mg In 10 Sodium Chloride 0.9% 100 ml @ Per Protocol IV .Q0M [facility] Rx#:[id number] Fat Emulsion 20% 250 ml @ 41.66 229.13 20.833 mls/hr IV DAILY@ 1600 [facility] Rx#:[id number] Mvi, Adult No.4 with Vit 170 K 10 ml Trace (Conc-1Ml/ Dose) 1 ml In Amino Acid 5%-D15w+Lytes*E* 1,000 ml @ 85 mls/hr IV .BY DURATION [facility] Rx#: [id number] Sodium Chloride 0.9% 1, 720 162 90 000 ml @ 20 mls/hr IV . Q24H [facility] Rx#:[id number] TPN 1020 1020 85 Intake, IV Titration 253.863 250 Amount Heparin Sod,Pork in 0.45% 153.863 NaCl 25,000 unit In 0.45 % NaCl 1 250ml.bag @ 11. 82 UNITS/KG/HR 10 mls/hr IV .Q24H [facility] Rx#: [id number] Piperacillin-Tazobactam 3 50 .375 gm In Sodium Chloride 0.9% 100 ml @ 25 mls/hr IVPB Q8H [facility] Rx#: [id number] Potassium Chloride 10 meq 200 In Water For Injection 1 100ml.bag @ 100 mls/hr IVPB Q1H [facility] Rx#: [id number] Potassium Chloride 20 meq 100 In Water For Injection 1 100ml.bag @ 50 mls/hr IVPB ONCE ONE Rx#: [id number] Other 60 Output: Gastric Drainage 650 550 Urine 2024 182 1225 Other: Voiding Method Indwelling Catheter Indwelling Catheter # Bowel Movements 1 - Exam PHYSICAL EXAMINATION: GENERAL: The patient is alert and oriented x1, confused. not in any acute distress. Well developed, well nourished. HEENT: Pupils are round and equally reacting to light. EOMI. No scleral icterus. No conjunctival pallor. Normocephalic, atraumatic. No pharyngeal erythema. No thyromegaly. CARDIOVASCULAR: S1 and S2 present. No murmurs, rubs, or gallops. PULMONARY: Chest is clear to auscultation, no wheezing or crackles. ABDOMEN: Minimal tenderness. abdomen is distended tympanic sluggish bowel sounds. Surgical site area appears to be not infected and clean MUSCULOSKELETAL: No joint swelling or deformity. EXTREMITIES: No cyanosis, clubbing, or pedal edema. NEUROLOGICAL: Gross neurological examination did not reveal any focal deficits. SKIN: No rashes. - Labs CBC & Chem 7: 02/27/19 05:11 02/27/19 17:25 Labs: Abnormal Lab Results - Last 24 Hours (Table) 02/25/19 02/25/19 02/25/19 Range/Units 13:08 17:14 23:01 WBC (3.8-10.6) k/uL RBC (4.30-5.90) m/uL Hgb (13.0-17.5) gm/dL Hct (39.0-53.0) % Neutrophils # (1.3-7.7) k/uL Lymphocytes # (1.0-4.8) k/uL APTT 49.2 H (22.0-30.0) sec BUN (9-20) mg/dL Glucose (74-99) mg/dL POC Glucose (mg/dL) 141 H 139 H (75-99) mg/dL Calcium (8.4-10.2) mg/dL 02/26/19 02/26/19 02/26/19 Range/Units 06:04 06:53 06:53 WBC 15.1 H (3.8-10.6) k/uL RBC 3.71 L (4.30-5.90) m/uL Hgb 11.6 L (13.0-17.5) gm/dL Hct 35.4 L (39.0-53.0) % Neutrophils # 14.1 H (1.3-7.7) k/uL Lymphocytes # 0.4 L (1.0-4.8) k/uL APTT (22.0-30.0) sec BUN 26 H (9-20) mg/dL Glucose 191 H (74-99) mg/dL POC Glucose (mg/dL) 197 H (75-99) mg/dL Calcium 7.6 L (8.4-10.2) mg/dL 02/26/19 02/26/19 Range/Units 06:53 11:37 WBC (3.8-10.6) k/uL RBC (4.30-5.90) m/uL Hgb (13.0-17.5) gm/dL Hct (39.0-53.0) % Neutrophils # (1.3-7.7) k/uL Lymphocytes # (1.0-4.8) k/uL APTT 50.1 H (22.0-30.0) sec BUN (9-20) mg/dL Glucose (74-99) mg/dL POC Glucose (mg/dL) 106 H (75-99) mg/dL Calcium (8.4-10.2) mg/dL Microbiology - Last 24 Hours (Table) 02/21/19 13:21 Blood Culture - Preliminary Blood No Growth after 96 hours 02/20/19 11:12 Blood Culture - Preliminary Blood No Growth after 120 hours 02/20/19 11:00 Blood Culture - Preliminary Blood No Growth after 120 hours Assessment and Plan Assessment: - Status post Manuel fundoplication due to severe gastroesophageal reflux disease. - Abdominal distention and small bowel obstruction. Status post expiratory laparotomy. - New onset atrial fibrillation with RVR. Currently off Cardizem drip. Cardiology is following. - Postoperative ileus. Currently on NG tube. CT abdomen and pelvis showed no evidence of obstruction. Status post exploratory laparotomy. - Bilateral moderate pleural effusion and possible basilar infiltrate. - Type 2 diabetes mellitus: Sliding scale insulin hold off metformin as mentioned above -Hypertension patient blood pressure is elevated because of pain and patientis on his lisinopril -Abdominal pain mostly secondary to constipation and opiate analgesia management as per primary service. -Gastroesophageal reflux disease for which patient underwent Manuel fundoplication on proton pump inhibitor - DVT prophylaxis with heparin subcu Time with Patient: Greater than 30
--- NOTE | 2019-02-27 21:41 | P.PN ---
Subjective Progress Note Date: 02/27/19 Principal diagnosis: Status post Manuel fundoplication patient is status post Manuel fundoplication 02/16/2019 patient is tachycardic patient abdomen is distended because of constipation grade halogenated repeat CAT scan which did not show any significant blood bowel blockage but does have significant air. Patient may benefit from medications for constipation. We'll obtain an EKG TSH. It appears to be sinus tachycardia clinically. and is in distress because of abdominal distention but able to walk around patient is hypoxic at 90% obtain a chest x-ray as well although clinically patient chest is clear. 02/17/2019 Patient is still tachycardic with heart rate in 90s. Patient is status post Manuel fundoplication on 02/14/2019. Patient is otherwise awake alert and oriented 3. Currently in the intensive care unit. Currently being continued on NG tube due ileus. Abdominal still distended. 02/18/2019 Patient seems to be confused today. Patient went into atrial fibrillation with RVR and was started on Cardizem drip. Repeat CT abdomen and pelvis showed bilateral moderate pleural effusion and bibasilar pulmonary infiltrates. New compared to previous exam. Patient was started on antibiotics no cough Zosyn. Otherwise patient's abdominal still distended. Patient is being continued on NG tube for decompression. Patient has been afebrile. WBC count slightly elevated to 10.8. No bowel movement or passing of flatus at this time. 02/19/2019 Patient is awake alert and oriented 3 today. Patient says that she did pass flatness this morning. Bowel sounds are sluggish. Complains of mild abdominal pain. No fever no chills. Heart rate is better controlled and added Imdur has been discontinued. Patient is being continued on antibiotics Zosyn. NG tube is in place with bilious drainage. 02 20 2019 Patient says that he still having abdominal pain 3 out of 10. Due to overall slow improvement and worsening leukocytosis with WBC count 17.5 today, repeat CT abdomen and pelvis was done showed increasing ascites and small bowel inflammation. No evidence of perforation. Patient was taken to walk but expiratory laparotomy and possible peritonitis Patient has been afebrile. NG tube is in place with bilious drainage. No chest pain or shortness of breath. No bowel movement. 02/21/2019 Patient says that his abdominal pain is better. Has not passed flatness. Otherwise no complaints of nausea vomiting. Patient was started on TPN. Leukocytosis is still present. Heart rate is controlled. No fever no chills. Mentation is much improved today. 02/22/2019 Status post repair of small bowel perforation requiring exploratory laparotomy. Postoperative day 2. Patient is currently in the MICU. No events of chest pain or abdominal pain i ncreases improving. Continued on IV hydration and TPN. Patient has been afebrile. Otherwise patient went into A. fib today morning and was started back on Cardizem. Chest x-ray showed congestive heart. Small pleural effusions. Pelvis count is trending up to 23.4. Currently on antibiotics in Zosyn and micafungin. 02/23/2019 Patient is currently in MICU. Lying in the bed confused and delirious. NG tube is in place. Patient is being continued on TPN f Abdomen seems distended today. No bowel movement so far. Patient is being continued on Cardizem drip. No fever no chills otherwise. Leukocytosis slightly improved to 22.7 today. Denies chest pain. No shortness of breath. 02/24/2019 Patient is currently in the MICU. Mental status is better compared to yesterday. Awake alert and oriented. NG tube with low suction is in place. Denied any complaints of chest pain or shortness of breath. Patient is on Cardizem drip for rate control. Leukocytosis is improving with WBC count 19.1 today. Otherwise patient did have a small bowel movement last night. Abdomen is still distended. No fever no chills. Antibiotics are being continued on Zosyn and micafungin. 02/25/2019 Patient is demanding the MICU. Mental status is much improved today. Patient was transferred to bedside recliner today. No fever no chills. Overnight patient did have small bowel movements and was able to pass flatus. Abdominal distention slightly improved but still distended. No nausea no vomiting. NG tube in place with low intermittent suction. Continued on antibiotics. Heart rate is better controlled. Leukocytosis improved to 16.7 today. 02/26/2019 Patient denied any complaints of chest pain or shortness of breath. Patient is currently in the MICU. Awake alert oriented 3. Currently on the recliner. Patient did have small bowel movements and is passing flatus. Heart rate is fairly controlled. No fever no chills. Leukocytosis is improving to 15.1 today. Patient continues to be on NG tube and TPN. 02/27/2019 Patient is status post laparoscopic Manuel fundoplication on 02/14/2019, with an expected postoperative course with small bowel obstruction/perforation status post exploratory laparotomy on 02/20/2019 Patient is currently sitting in the recliner and is awake and oriented 3. Patient did have multiple bowel movements and is able to pass flatus. Currently on ice chips only. Continued on TPN and NG tube. Leukocytosis is improved with WBC count 14.3 Chest x-ray showed bibasilar effusions. Currently on diuresis and is saturating on nasal cannula oxygen. Heart rate is controlled with Cardizem. No fever no chills. Abdominal distention did improve with bowel movements. Patient does have good urine output otherwise. Current Medications reviewed. Objective - Vital Signs Vital signs: Vital Signs Temp 98.3 F 02/27/19 20:00 Pulse 98 02/27/19 21:00 Resp 31 H 02/27/19 21:00 BP 166/84 02/27/19 21:00 Pulse Ox 93 L 02/27/19 21:00 Intake & Output 02/27/19 02/27/19 02/28/19 06:59 18:59 06:59 Intake Total 2775.061 1253.939 487.143 Output Total 2470 1645 470 Balance 305.061 -391.061 17.143 Weight 86 kg Intake: IV 1264 1095 357 Fat Emulsion 20% 250 ml @ 189 42 20.833 mls/hr IV DAILY@ 1600 [facility] Rx#:[id number] Sodium Chloride 0.9% 1, 140 160 60 000 ml @ 20 mls/hr IV . Q24H [facility] Rx#:[id number] TPN 935 935 255 Intake, IV Titration 1511.061 158.939 130.143 Amount Anidulafungin 100 mg In 100 Sodium Chloride 0.9% 100 ml @ 84 mls/hr IVPB DAILY [facility] Rx#:[id number] Heparin Sod,Pork in 0.45% 191.061 58.939 130.143 NaCl 25,000 unit In 0.45 % NaCl 1 250ml.bag @ 11. 82 UNITS/KG/HR 10 mls/hr IV .Q24H [facility] Rx#: [id number] Piperacillin-Tazobactam 3 200 .375 gm In Sodium Chloride 0.9% 100 ml @ 25 mls/hr IVPB Q8H [facility] Rx#: [id number] Potassium Chloride 10 meq 100 In Water For Injection 1 100ml.bag @ 100 mls/hr IVPB Q1H [facility] Rx#: [id number] Potassium Chloride 40 meq 1020 In Amino Acid 5%-D15w+ Lytes*E* 1,000 ml @ 85 mls/hr IV .BY DURATION [facility] Rx#:[id number] Output: Gastric Drainage 450 Urine 2020 1645 470 Other: Voiding Method Indwelling Catheter Indwelling Catheter Indwelling Catheter - Exam PHYSICAL EXAMINATION: GENERAL: The patient is alert and oriented x1, confused. not in any acute distress. Well developed, well nourished. HEENT: Pupils are round and equally reacting to light. EOMI. No scleral icterus. No conjunctival pallor. Normocephalic, atraumatic. No pharyngeal erythema. No thyromegaly. CARDIOVASCULAR: S1 and S2 present. No murmurs, rubs, or gallops. PULMONARY: Chest is clear to auscultation, no wheezing or crackles. ABDOMEN: Minimal tenderness. abdomen is distended tympanic sluggish bowel sounds. Surgical site area appears to be not infected and clean MUSCULOSKELETAL: No joint swelling or deformity. EXTREMITIES: No cyanosis, clubbing, or pedal edema. NEUROLOGICAL: Gross neurological examination did not reveal any focal deficits. SKIN: No rashes. - Labs CBC & Chem 7: 02/27/19 05:11 02/27/19 17:25 Labs: Abnormal Lab Results - Last 24 Hours (Table) 02/26/19 02/27/19 02/27/19 Range/Units 23:30 05:11 05:11 WBC 14.3 H (3.8-10.6) k/uL RBC 3.66 L (4.30-5.90) m/uL Hgb 11.3 L (13.0-17.5) gm/dL Hct 35.5 L (39.0-53.0) % Neutrophils # 13.1 H (1.3-7.7) k/uL Lymphocytes # 0.5 L (1.0-4.8) k/uL APTT (22.0-30.0) sec BUN 26 H (9-20) mg/dL Glucose 204 H (74-99) mg/dL POC Glucose (mg/dL) 174 H (75-99) mg/dL Calcium 7.6 L (8.4-10.2) mg/dL 02/27/19 02/27/19 02/27/19 Range/Units 05:45 05:57 11:36 WBC (3.8-10.6) k/uL RBC (4.30-5.90) m/uL Hgb (13.0-17.5) gm/dL Hct (39.0-53.0) % Neutrophils # (1.3-7.7) k/uL Lymphocytes # (1.0-4.8) k/uL APTT 56.1 H (22.0-30.0) sec BUN (9-20) mg/dL Glucose (74-99) mg/dL POC Glucose (mg/dL) 171 H 159 H (75-99) mg/dL Calcium (8.4-10.2) mg/dL 02/27/19 02/27/19 Range/Units 13:23 17:22 WBC (3.8-10.6) k/uL RBC (4.30-5.90) m/uL Hgb (13.0-17.5) gm/dL Hct (39.0-53.0) % Neutrophils # (1.3-7.7) k/uL Lymphocytes # (1.0-4.8) k/uL APTT (22.0-30.0) sec BUN (9-20) mg/dL Glucose (74-99) mg/dL POC Glucose (mg/dL) 157 H 162 H (75-99) mg/dL Calcium (8.4-10.2) mg/dL Microbiology - Last 24 Hours (Table) 02/21/19 13:21 Blood Culture - Final Blood No Growth after 144 hours Assessment and Plan Assessment: - Status post Manuel fundoplication due to severe gastroesophageal reflux disease. - Abdominal distention and small bowel obstruction. Status post expiratory laparotomy. - New onset atrial fibrillation with RVR. Currently on and off Cardizem drip. Cardiology is following. - Postoperative ileus. Currently on NG tube. CT abdomen and pelvis showed no evidence of obstruction. Status post exploratory laparotomy. - Bilateral moderate pleural effusion and possible basilar infiltrate. - Type 2 diabetes mellitus: Sliding scale insulin hold off metformin as mentioned above -Hypertension patient blood pressure is elevated because of pain and patientis on his lisinopril -Abdominal pain mostly secondary to constipation and opiate analgesia management as per primary service. -Gastroesophageal reflux disease for which patient underwent Manuel fundoplication on proton pump inhibitor - DVT prophylaxis with heparin subcu Time with Patient: Greater than 30
[2019-02-28 00:08] LABS: Glucose,Whole Blood 197 mg/dL (75-99)
[2019-02-28 05:00] LABS: Basophils % (A) 0 %; Eosinophils # (A) 0.1 k/uL (0-0.7); Eosinophils % (A) 1 %; HGB 10.5 gm/dL (13.0-17.5); Lymphocytes # (A) 0.7 k/uL (1.0-4.8); Lymphocytes % (A) 5 %; MCH 31.4 pg (25.0-35.0); MCHC 33.9 g/dL (31.0-37.0); MCV 92.6 fL (80.0-100.0); Mean Platelet Volume 6.6; Monocytes # (A) 0.3 k/uL (0-1.0); Monocytes % (A) 2 %; Neutrophils # (A) 12.2 k/uL (1.3-7.7); Neutrophils % (A) 90 %; Platelet Count 459 k/uL (150-450); RBC 3.35 m/uL (4.30-5.90); RDW 12.8 % (11.5-15.5); WBC 13.5 k/uL (3.8-10.6)
[2019-02-28 05:13] LABS: Calcium 7.5 mg/dL (8.4-10.2); Magnesium 2.3 mg/dL (1.6-2.3); Phosphorus 3.8 mg/dL (2.5-4.5); Potassium 3.7 mmol/L (3.5-5.1)
[2019-02-28] MEDS: LABETALOL 5 MG/ML VIAL MDV IVP PRN (05:13)
[2019-02-28] MEDS: METOCLOPRAMIDE 5 MG/ML 2 ML VIAL IVP SCH ×4 (05:14→23:19)
[2019-02-28] MEDS: PIPERACILLIN-TAZOBACTAM 3.375 GM in SODIUM CHLORIDE 0.9% 100 ML IVPB SCH ×3 (05:14→21:01)
[2019-02-28] MEDS ORDERED: Potassium Replacement Protocol 1 EACH MISC MISCELLANE PRN (05:25)
[2019-02-28] MEDS ORDERED: POTASSIUM CHLORIDE ER 20 MEQ TAB.ER PO SCH (06:00)
[2019-02-28 06:15] LABS: Glucose,Whole Blood 213 mg/dL (75-99)
[2019-02-28] MEDS: INSULIN ASPART (NovoLOG) 100 UNIT/ML VIAL SQ SCH ×4 (06:41→21:21)
[2019-02-28] MEDS: CLEVIDIPINE BUTYRATE 25 MG in EMPTY BAG 1 BAG IV SCH (07:46)
[2019-02-28] MEDS: BISACODYL 10 MG SUPP RECTAL SCH (07:47)
[2019-02-28] MEDS: TAMSULOSIN 0.4 MG CAP.ER.24H PO SCH (07:57)
[2019-02-28] MEDS: SIMETHICONE 40 MG/0.6 ML DROPS 2,000 MG/30 ML BOTTLE PO SCH ×4 (07:57→23:11)
[2019-02-28] MEDS: PANTOPRAZOLE 40 MG/10 ML VIAL IVP SCH (08:02)
[2019-02-28] MEDS: ANIDULAFUNGIN 100 MG in SODIUM CHLORIDE 0.9% 100 ML IVPB SCH (08:03)
[2019-02-28] MEDS: FUROSEMIDE 10 MG/ML 2 ML VIAL IV SCH ×2 (08:04→21:12)
[2019-02-28] MEDS: ACETAMINOPHEN TAB 325 MG TAB PO SCH ×2 (08:04→21:08)
--- NOTE | 2019-02-28 09:27 | XR ---
EXAMINATION TYPE: XR chest 1V DATE OF EXAM: 02/28/2019 COMPARISON: 02/27/2019 HISTORY: Shortness of breath FINDINGS: There are bilateral pleural effusions with cardiomegaly and bibasilar infiltrate. There is a diffuse interstitial pattern. Right-sided central line noted. NG tube is been removed. Arthropathy of the sh oulders. IMPRESSION: 1. Diffuse pleural-parenchymal changes are stable correlate for CHF versus pneumonia.
[2019-02-28] MEDS: METOPROLOL TARTRATE 25 MG TAB PO SCH ×2 (09:38→21:08)
[2019-02-28] MEDS: APIXABAN 5 MG TAB PO SCH ×2 (09:39→21:08)
--- NOTE | 2019-02-28 10:31 | P.PN ---
Subjective Progress Note Date: 02/28/19 This is a 78-year-old gentleman status post surgery for GI reflux disease. Subsequently, patient had a repeat surgery for ruptured a small bowel perforation. We're seeing the patient for paroxysmal atrial fibrillation. Patient was initiated on IV heparin and also IV Cardizem. Currently, patient is maintaining sinus rhythm with occasional APCs and PVCs. However, patient is developed distention of the abdomen and seemed to be in distress. Patient chest x-ray showed some right-sided effusion related to assess. Patient is getting IV Lasix also for fluid overload. Surgeons are going to evaluate him regarding his distended abdomen. From [facility] standpoint we'll continue current medical therapy. 02/24/2019: Patient is maintaining sinus rhythm. He is on IV Cardizem. Patient seemed to be sometimes delirious. His abdomen still distended from ileus. Patient is on IV heparin. We'll continue current medical therapy. Patient also received IV Lasix and diuresing well. Chest x-ray shows right-sided atelectasis versus fluid. Patient is have some bowel movement. We'll continue current medical therapy and will follow 02/25/2019: This patient is been maintaining sinus rhythm. He still on IV Cardizem. His blood pressure is better controlled. Patient claims she is feeling slightly better having some bowel movements. Still has NG tube. No other cardiac arrhythmias. Will stay in the current medical therapy. As long as patient is nothing by mouth, we'll continue IV Cardizem. May switch to by mouth medications when feasible. 02/26/2019. This patient is maintaining sinus rhythm. He claims he is feeling better. Has a lot of gas and having some stools. Still has abdominal dis tention NG tube. Patient is currently on IV Cardizem and also heparin. As long as patient is nothing by mouth we'll continue current medical therapy. Chest x- ray showed some slight improvement. There appears to be right-sided pleural effusion with some effect assess. Prognosis still guarded. 02/27/2019: Patient continues to improve slowly. Had couple of bowel movements. Abdomen is still distended and patient still has NG tube. Patient is still nothing by mouth. He is on IV Cardizem and also heparin. His maintaining sinus rhythm. His blood pressure is fluctuating. He has been getting labetalol when necessary besides IV Cardizem. Denies any chest pain or shortness of breath. We'll continue current medical therapy. We'll initiate oral medications, when patient is capable of taking by mouth. 02/28/2019: This patient was admitted was only for surgery for hiatal hernia. Subsequently required repeated abdominal surgery for ruptured of small bowel. Patient has been slowly recovering. Patient has been having bowel movements. Patient started eating. He was started on by mouth medication. He is on Lopressor. His heparin is discontinued today. Patient is being started on Eliquis. Otherwise patient seemed to be cardiac was stable. We'll be seeing him on when necessary basis Objective - Vital Signs Vital signs: Vital Signs Temp 98.1 F 02/28/19 08:00 Pulse 98 02/28/19 09:00 Resp 20 02/28/19 09:00 BP 123/60 02/28/19 09:00 Pulse Ox 94 L 02/28/19 09:00 Intake & Output 02/27/19 02/28/19 02/28/19 18:59 06:59 18:59 Intake Total 2284.939 1453.143 656.058 Output Total 1645 2020 415 Balance 639.939 -566.857 241.058 Weight 81.4 kg Intake: IV 1095 1323 425 Anidulafungin 100 mg In 100 Sodium Chloride 0.9% 100 ml @ 84 mls/hr IVPB DAILY [facility] Rx#:[id number] Fat Emulsion 20% 250 ml @ 168 20.833 mls/hr IV DAILY@ 1600 [facility] Rx#:[id number] Sodium Chloride 0.9% 1, 160 220 20 000 ml @ 20 mls/hr IV . Q24H [facility] Rx#:[id number] TPN 935 935 305 Intake, IV Titration 1189.939 130.143 231.058 Amount Anidulafungin 100 mg In 100 Sodium Chloride 0.9% 100 ml @ 84 mls/hr IVPB DAILY [facility] Rx#:[id number] Heparin Sod,Pork in 0.45% 58.939 130.143 231.058 NaCl 25,000 unit In 0.45 % NaCl 1 250ml.bag @ 11. 82 UNITS/KG/HR 10 mls/hr IV .Q24H [facility] Rx#: [id number] Mvi, Adult No.4 with Vit 1031 K 10 ml Trace (Conc-1Ml/ Dose) 1 ml Potassium Chloride 40 meq In Amino Acid 5%-D15w+Lytes*E* 1, 000 ml @ 85 mls/hr IV .BY DURATION [facility] Rx#: [id number] Output: Urine 1645 2020 415 Other: Voiding Method Indwelling Catheter Indwelling Catheter Indwelling Catheter # Voids 0 # Bowel Movements 1 - Exam GENERAL EXAM: Patient is alert and agitated HEENT: Normocephalic. Normal reaction of pupils, equal size, normal range of extraocular motion. No erythema or exudates in the throat. NECK: No masses, no nuchal rigidity. CHEST: No chest wall deformity. LUNGS: Equal air entry with no crackles or wheeze. HEART: S1 and S2 normal with no audible mumurs or gallops. Regular rhythm, femorals equal on both sides.. ABDOMEN: Distended SKIN: No rashes CENTRAL NERVOUS SYSTEM: No focal deficits. EXTREMITIES: No cyanosis, clubbing or edema. - Labs CBC & Chem 7: 02/28/19 04:32 02/28/19 04:32 Labs: Abnormal Lab Results - Last 24 Hours (Table) 02/27/19 02/27/19 02/27/19 Range/Units 11:36 13:23 17:22 WBC (3.8-10.6) k/uL RBC (4.30-5.90) m/uL Hgb (13.0-17.5) gm/dL Hct (39.0-53.0) % Plt Count (150-450) k/uL Neutrophils # (1.3-7.7) k/uL Lymphocytes # (1.0-4.8) k/uL APTT (22.0-30.0) sec Sodium (137-145) mmol/L BUN (9-20) mg/dL Glucose (74-99) mg/dL POC Glucose (mg/dL) 159 H 157 H 162 H (75-99) mg/dL Calcium (8.4-10.2) mg/dL 02/27/19 02/28/19 02/28/19 Range/Units 23:56 04:32 04:32 WBC 13.5 H (3.8-10.6) k/uL RBC 3.35 L (4.30-5.90) m/uL Hgb 10.5 L (13.0-17.5) gm/dL Hct 31.0 L (39.0-53.0) % Plt Count 459 H (150-450) k/uL Neutrophils # 12.2 H (1.3-7.7) k/uL Lymphocytes # 0.7 L (1.0-4.8) k/uL APTT (22.0-30.0) sec Sodium 136 L (137-145) mmol/L BUN 28 H (9-20) mg/dL Glucose 227 H (74-99) mg/dL POC Glucose (mg/dL) 197 H (75-99) mg/dL Calcium 7.5 L (8.4-10.2) mg/dL 02/28/19 02/28/19 Range/Units 04:32 06:03 WBC (3.8-10.6) k/uL RBC (4.30-5.90) m/uL Hgb (13.0-17.5) gm/dL Hct (39.0-53.0) % Plt Count (150-450) k/uL Neutrophils # (1.3-7.7) k/uL Lymphocytes # (1.0-4.8) k/uL APTT 58.3 H (22.0-30.0) sec Sodium (137-145) mmol/L BUN (9-20) mg/dL Glucose (74-99) mg/dL POC Glucose (mg/dL) 213 H (75-99) mg/dL Calcium (8.4-10.2) mg/dL Microbiology - Last 24 Hours (Table) 02/21/19 13:21 Blood Culture - Final Blood No Growth after 144 hours Assessment and Plan (1) Paroxysmal atrial fibrillation Current Visit: Yes Status: Acute Code(s): I48.0 - PAROXYSMAL ATRIAL FIBRILLATION SNOMED Code(s): 833011350 (2) Diabetes type 2, uncontrolled Current Visit: Yes Status: Acute Code(s): E11.65 - TYPE 2 DIABETES MELLITUS WITH HYPERGLYCEMIA SNOMED Code(s): 316856764 (3) Status post Manuel fundoplication Current Visit: Yes Status: Acute Code(s): Z98.890 - OTHER SPECIFIED POSTPROCEDURAL STATES SNOMED Code(s): 800840672 Plan: Patient's overall condition is improving. His maintaining sinus rhythm. His on by mouth Lopressor and also ELIQUIS and we'll continue current medical therapy. We will follow him as needed.
--- NOTE | 2019-02-28 11:07 | P.PN ---
Subjective Hospital course: This is a pleasant 78 years old male with past medical history of diabetes mellitus, GERD, hypertension, arthritis. He was admitted for severe gastroesophageal reflux disease, he is status post Manuel fundoplication . Also his hospital course was complicated with bowel obstruction and he underwent exploratory laparotomy, patient has peritonitis secondary to bowel perforation. And patient is been seen by cardiology for A. fib with RVR, new onset. Patient today was still in the ICU, he sitting in the chair, there was a started on liquid diet and he is tolerating that well. Patient looks comfortable and not in distress. He is been followed by several consultants exiting the primary surgical team as well as the pulmonary/critical care and infectious disease team. Cardiology also on board. Patient looks like improving gradually. He is currently on Zosyn and Eraxis, intravenous Lasix 20 mg twice daily and heparin drip with the plan to switch to oral anticoagulation by cardiology team. Vitas looks stable although patient is tachypneic at times. Leukocytosis is improving down to 13.5 K, hemoglobin is 10.5. Sodium 136 and creatinine 0.9, sugar is controlled. Objective - Vital Signs Vital signs: Vital Signs Temp 98.1 F 02/28/19 08:00 Pulse 94 02/28/19 10:00 Resp 27 H 02/28/19 10:00 BP 116/60 02/28/19 10:00 Pulse Ox 94 L 02/28/19 10:00 Intake & Output 02/27/19 02/28/19 02/28/19 18:59 06:59 18:59 Intake Total 2284.939 1453.143 656.058 Output Total 1645 2020 415 Balance 639.939 -566.857 241.058 Weight 81.4 kg Intake: IV 1095 1323 425 Anidulafungin 100 mg In 100 Sodium Chloride 0.9% 100 ml @ 84 mls/hr IVPB DAILY [facility] Rx#:[id number] Fat Emulsion 20% 250 ml @ 168 20.833 mls/hr IV DAILY@ 1600 [facility] Rx#:[id number] Sodium Chloride 0.9% 1, 160 220 20 000 ml @ 20 mls/hr IV . Q24H [facility] Rx#:[id number] TPN 935 935 305 Intake, IV Titration 1189.939 130.143 231.058 Amount Anidulafungin 100 mg In 100 Sodium Chloride 0.9% 100 ml @ 84 mls/hr IVPB DAILY [facility] Rx#:[id number] Heparin Sod,Pork in 0.45% 58.939 130.143 231.058 NaCl 25,000 unit In 0.45 % NaCl 1 250ml.bag @ 11. 82 UNITS/KG/HR 10 mls/hr IV .Q24H [facility] Rx#: [id number] Mvi, Adult No.4 with Vit 1031 K 10 ml Trace (Conc-1Ml/ Dose) 1 ml Potassium Chloride 40 meq In Amino Acid 5%-D15w+Lytes*E* 1, 000 ml @ 85 mls/hr IV .BY DURATION [facility] Rx#: [id number] Output: Urine 1645 2020 415 Other: Voiding Method Indwelling Catheter Indwelling Catheter Indwelling Catheter # Voids 0 # Bowel Movements 1 - Exam GENERAL: The patient is alert and oriented x3, not in any acute distress. Well developed, well nourished. HEENT: Pupils are round and equally reacting to light. EOMI. No scleral icterus. No conjunctival pallor. Normocephalic, atraumatic. No pharyngeal erythema. No thyromegaly. CARDIOVASCULAR: S1 and S2 present. No murmurs, rubs, or gallops. PULMONARY: Chest is clear to auscultation, no wheezing or crackles. -ABDOMEN: Soft, expected mild postoperative tenderness, nondistended, normoactive bowel sounds. Wound is clean and dressing is in place MUSCULOSKELETAL: No joint swelling or deformity. EXTREMITIES: No cyanosis, clubbing, or pedal edema. NEUROLOGICAL: Gross neurological examination did not reveal any focal deficits. SKIN: No rashes. no petechiae. - Labs CBC & Chem 7: 02/28/19 04:32 02/28/19 04:32 Labs: Abnormal Lab Results - Last 24 Hours (Table) 02/27/19 02/27/19 02/27/19 Range/Units 11:36 13:23 17:22 WBC (3.8-10.6) k/uL RBC (4.30-5.90) m/uL Hgb (13.0-17.5) gm/dL Hct (39.0-53.0) % Plt Count (150-450) k/uL Neutrophils # (1.3-7.7) k/uL Lymphocytes # (1.0-4.8) k/uL APTT (22.0-30.0) sec Sodium (137-145) mmol/L BUN (9-20) mg/dL Glucose (74-99) mg/dL POC Glucose (mg/dL) 159 H 157 H 162 H (75-99) mg/dL Calcium (8.4-10.2) mg/dL 02/27/19 02/28/19 02/28/19 Range/Units 23:56 04:32 04:32 WBC 13.5 H (3.8-10.6) k/uL RBC 3.35 L (4.30-5.90) m/uL Hgb 10.5 L (13.0-17.5) gm/dL Hct 31.0 L (39.0-53.0) % Plt Count 459 H (150-450) k/uL Neutrophils # 12.2 H (1.3-7.7) k/uL Lymphocytes # 0.7 L (1.0-4.8) k/uL APTT (22.0-30.0) sec Sodium 136 L (137-145) mmol/L BUN 28 H (9-20) mg/dL Glucose 227 H (74-99) mg/dL POC Glucose (mg/dL) 197 H (75-99) mg/dL Calcium 7.5 L (8.4-10.2) mg/dL 02/28/19 02/28/19 Range/Units 04:32 06:03 WBC (3.8-10.6) k/uL RBC (4.30-5.90) m/uL Hgb (13.0-17.5) gm/dL Hct (39.0-53.0) % Plt Count (150-450) k/uL Neutrophils # (1.3-7.7) k/uL Lymphocytes # (1.0-4.8) k/uL APTT 58.3 H (22.0-30.0) sec Sodium (137-145) mmol/L BUN (9-20) mg/dL Glucose (74-99) mg/dL POC Glucose (mg/dL) 213 H (75-99) mg/dL Calcium (8.4-10.2) mg/dL Microbiology - Last 24 Hours (Table) 02/21/19 13:21 Blood Culture - Final Blood No Growth after 144 hours Assessment and Plan Assessment: - Status post Manuel fundoplication due to severe gastroesophageal reflux disease. Continue with PPI - Peritonitis secondary to bowel perforation. Status post expiratory laparotomy. - Postoperative ileus with resultant bowel obstruction. Improvement - New onset atrial fibrillation with RVR. Currently on metoprolol and Eliquis. Cardiology is following. -Fluid overload, secondary to potential hydration. Improving on IV Lasix - Type 2 diabetes mellitus: Sliding scale insulin hold off metformin as mentioned above -Hypertension, improvement - DVT prophylaxis with Eliquis -GI prophylaxis: Protonix Prognosis is guarded
--- NOTE | 2019-02-28 11:41 | P.PN ---
Subjective Progress Note Date: 02/28/19 CHIEF COMPLAINT: GERD HISTORY OF PRESENT ILLNESS: 78-year-old male who is status post laparoscopic Manuel fundoplication performed on 02/14/2019. Patient is also s/p exploratory laparotomy, washout of abdomen, and enterorrhaphy due to small bowel perforation on 02/20/19. NG tube discontinued yesterday. Patient has been tolerating full liquid diet. Denies nausea or vomiting. Denies abdominal pain. Passing flatus. Having loose bowel movements. PHYSICAL EXAM: VITAL SIGNS: Reviewed. GENERAL: Well-developed in no acute distress. HEENT: NG to LIS. No sclera icterus. Extraocular movements grossly intact. Moist buccal mucosa. Head is atraumatic, normocephalic. ABDOMEN: Remains distended. Soft. Nontender with palpation. Optifoam dressing noted to midline incision. NEUROLOGIC: Awake and alert. Oriented x 3. Cranial nerves II through XII grossly intact. ASSESSMENT: 1. GERD, S/P laparoscopic Manuel fundoplication 2. Acute gastric distention 3. Small bowel obstruction secondary to ileus, an unexpected outcome of surgery 4. Urinary retention, an unexpected outcome of surgery 5. S/p exploratory laparotomy, washout of abdomen, and enterorrhaphy due to small bowel perforation on 02/20/19, etiology unclear of perforation 6. Paroxysmal atrial fibrillation 7. Acute hypoxic respiratory failure requiring supplemental oxygen secondary to abdominal distention, fluid volume overload, and pleural effusions 8. Postoperative delrium, an unexpected by potential outcome of surgery and hospitalization 9. Fluid overload with pleural effusions/acute exacerbation of diastolic heart failure EF 65-70% PLAN: 1. Continue full liquid diet 2. Continue Reglan 3. DC daily dulcolax 4. Patient is tolerating 50% of full liquid diet. May wean off TPN today. 5. Monitor WBC. Continue antibiotics 6. Continue to evaluate for possible WIN at discharge Nurse practitioner note has been reviewed by physician. Signing provider agrees with the documented findings, assessment, and plan of care. Objective - Vital Signs Vital signs: Vital Signs Temp 98.1 F 02/28/19 08:00 Pulse 94 02/28/19 11:00 Resp 27 H 02/28/19 11:00 BP 136/69 02/28/19 11:00 Pulse Ox 94 L 02/28/19 11:00 Intake & Output 02/27/19 02/28/19 02/28/19 18:59 06:59 18:59 Intake Total 2284.939 1453.143 701.058 Output Total 1644 2019 417 Balance 639.939 -566.857 284.058 Weight 81.4 kg Intake: IV 1095 1323 470 Anidulafungin 100 mg In 100 Sodium Chloride 0.9% 100 ml @ 84 mls/hr IVPB DAILY [facility] Rx#:[id number] Fat Emulsion 20% 250 ml @ 168 20.833 mls/hr IV DAILY@ 1600 [facility] Rx#:[id number] Sodium Chloride 0.9% 1, 160 220 20 000 ml @ 20 mls/hr IV . Q24H [facility] Rx#:[id number] TPN 935 935 350 Intake, IV Titration 1189.939 130.143 231.058 Amount Anidulafungin 100 mg In 100 Sodium Chloride 0.9% 100 ml @ 84 mls/hr IVPB DAILY [facility] Rx#:[id number] Heparin Sod,Pork in 0.45% 58.939 130.143 231.058 NaCl 25,000 unit In 0.45 % NaCl 1 250ml.bag @ 11. 82 UNITS/KG/HR 10 mls/hr IV .Q24H [facility] Rx#: [id number] Mvi, Adult No.4 with Vit 1031 K 10 ml Trace (Conc-1Ml/ Dose) 1 ml Potassium Chloride 40 meq In Amino Acid 5%-D15w+Lytes*E* 1, 000 ml @ 85 mls/hr IV .BY DURATION [facility] Rx#: [id number] Output: Urine 1644 2019 417 Other: Voiding Method Indwelling Catheter Indwelling Catheter Indwelling Catheter # Voids 0 # Bowel Movements 1 - Labs CBC & Chem 7: 02/28/19 04:32 02/28/19 04:32 Labs: Abnormal Lab Results - Last 24 Hours (Table) 02/27/19 02/27/19 02/27/19 Range/Units 11:36 13:23 17:22 WBC (3.8-10.6) k/uL RBC (4.30-5.90) m/uL Hgb (13.0-17.5) gm/dL Hct (39.0-53.0) % Plt Count (150-450) k/uL Neutrophils # (1.3-7.7) k/uL Lymphocytes # (1.0-4.8) k/uL APTT (22.0-30.0) sec Sodium (137-145) mmol/L BUN (9-20) mg/dL Glucose (74-99) mg/dL POC Glucose (mg/dL) 159 H 157 H 162 H (75-99) mg/dL Calcium (8.4-10.2) mg/dL 02/27/19 02/28/19 02/28/19 Range/Units 23:56 04:32 04:32 WBC 13.5 H (3.8-10.6) k/uL RBC 3.35 L (4.30-5.90) m/uL Hgb 10.5 L (13.0-17.5) gm/dL Hct 31.0 L (39.0-53.0) % Plt Count 459 H (150-450) k/uL Neutrophils # 12.2 H (1.3-7.7) k/uL Lymphocytes # 0.7 L (1.0-4.8) k/uL APTT (22.0-30.0) sec Sodium 136 L (137-145) mmol/L BUN 28 H (9-20) mg/dL Glucose 227 H (74-99) mg/dL POC Glucose (mg/dL) 197 H (75-99) mg/dL Calcium 7.5 L (8.4-10.2) mg/dL 02/28/19 02/28/19 Range/Units 04:32 06:03 WBC (3.8-10.6) k/uL RBC (4.30-5.90) m/uL Hgb (13.0-17.5) gm/dL Hct (39.0-53.0) % Plt Count (150-450) k/uL Neutrophils # (1.3-7.7) k/uL Lymphocytes # (1.0-4.8) k/uL APTT 58.3 H (22.0-30.0) sec Sodium (137-145) mmol/L BUN (9-20) mg/dL Glucose (74-99) mg/dL POC Glucose (mg/dL) 213 H (75-99) mg/dL Calcium (8.4-10.2) mg/dL Microbiology - Last 24 Hours (Table) 02/21/19 13:21 Blood Culture - Final Blood No Growth after 144 hours
[2019-02-28 11:53] LABS: Glucose,Whole Blood 220 mg/dL (75-99)
--- NOTE | 2019-02-28 12:51 | P.PN ---
Subjective Progress Note Date: 02/28/19 On 02/27/2019 the patient is postop day #13 following a Manuel fundoplication. The patient is also postop day #7 following a repair of a small bowel perforation. Doing well. NG tube has been removed. Tolerating some clear liquid diet. He is producing bowel movement and he has had bowel activity. He is receiving still PPN for nutritional support. His chest x-ray from today shows improvement in the bilateral pleural effusions. There is some residual effusion on the right. His overall edema is improving. He remains on IV Lasix. He remains in a negative fluid balance. He remains on a combination of IV Eraxis and IV Zosyn and the patient is awake and alert and following commands and answering questions. He did have another bout of atrial fibrillation and currently is rhythm is back to sinus. For that reason, the patient was placed on 5 mg of Eliquis by mouth twice a day. Lasix is running at 20 mg IV push every 12 hours. He is on Levemir insulin 15 units along with a sliding scale coverage. No other significant events overnight. He is able to ambulate. Objective - Vital Signs Vital signs: Vital Signs Temp 98.6 F 02/28/19 12:00 Pulse 96 02/28/19 12:00 Resp 28 H 02/28/19 12:00 BP 136/71 02/28/19 12:00 Pulse Ox 93 L 02/28/19 12:00 Intake & Output 02/27/19 02/28/19 02/28/19 18:59 06:59 18:59 Intake Total 2284.939 1453.143 746.058 Output Total 1645 2020 690 Balance 639.939 -566.857 56.058 Weight 81.4 kg 81.4 kg Intake: IV 1095 1323 515 Anidulafungin 100 mg In 100 Sodium Chloride 0.9% 100 ml @ 84 mls/hr IVPB DAILY [facility] Rx#:[id number] Fat Emulsion 20% 250 ml @ 168 20.833 mls/hr IV DAILY@ 1600 [facility] Rx#:[id number] Sodium Chloride 0.9% 1, 160 220 20 000 ml @ 20 mls/hr IV . Q24H [facility] Rx#:[id number] TPN 935 935 395 Intake, IV Titration 1189.939 130.143 231.058 Amount Anidulafungin 100 mg In 100 Sodium Chloride 0.9% 100 ml @ 84 mls/hr IVPB DAILY [facility] Rx#:[id number] Heparin Sod,Pork in 0.45% 58.939 130.143 231.058 NaCl 25,000 unit In 0.45 % NaCl 1 250ml.bag @ 11. 82 UNITS/KG/HR 10 mls/hr IV .Q24H [facility] Rx#: [id number] Mvi, Adult No.4 with Vit 1031 K 10 ml Trace (Conc-1Ml/ Dose) 1 ml Potassium Chloride 40 meq In Amino Acid 5%-D15w+Lytes*E* 1, 000 ml @ 85 mls/hr IV .BY DURATION [facility] Rx#: [id number] Output: Urine 1645 2020 690 Other: Voiding Method Indwelling Catheter Indwelling Catheter Indwelling Catheter # Voids 0 # Bowel Movements 1 - Exam Gen. appearance he is calm and comfortable likely distress. The patient is confused and awake and alert 3 and he has a sitter in place at the bedside. Head exam was generally normal. There was no scleral icterus or corneal arcus. Mucous membranes were moist. Neck was supple and without jugular venous distension, thyromegaly, or carotid bruits. Carotids were easily palpable bilaterally. There was no adenopathy. The patient has an NG tube in place. Lungs sounds are diminished in lung bases bilaterally with diminished breath sound in the mid and lower lung [place]. There is also dullness to percussion. Cardiac exam revealed the PMI to be normally situated and sized. The rhythm was regular and no extrasystoles were noted during several minutes of auscultation. The first and second heart sounds were normal and physiologic splitting of the second heart sound was noted. There were no murmurs, rubs, clicks, or gallops. Abdominal exam revealed normal bowel sounds. The abdomen was rather firm, non- tender, and without masses, organomegaly, or appreciable enlargement of the abdominal aorta. The patient has some slight abdominal distention. Surgical wound site over the anterior abdominal wall is clean. Bowel sounds are hypoactive and absent. No direct tenderness. No rebound tenderness. No guarding. Examination of the extremities revealed easily palpable radial, femoral and pedal pulses. There was no cyanosis, clubbing or edema. Examination of the skin revealed no evidence of significant rashes, suspicious appearing nevi or other concerning lesions. Neurologically awake 3. No cranial nerve deficits. No focal neurological deficits. Pupils are equal and reactive to light. - Labs CBC & Chem 7: 02/28/19 04:32 02/28/19 04:32 Labs: Abnormal Lab Results - Last 24 Hours (Table) 02/27/19 02/27/19 02/27/19 Range/Units 13:23 17:22 23:56 WBC (3.8-10.6) k/uL RBC (4.30-5.90) m/uL Hgb (13.0-17.5) gm/dL Hct (39.0-53.0) % Plt Count (150-450) k/uL Neutrophils # (1.3-7.7) k/uL Lymphocytes # (1.0-4.8) k/uL APTT (22.0-30.0) sec Sodium (137-145) mmol/L BUN (9-20) mg/dL Glucose (74-99) mg/dL POC Glucose (mg/dL) 157 H 162 H 197 H (75-99) mg/dL Calcium (8.4-10.2) mg/dL 02/28/19 02/28/19 02/28/19 Range/Units 04:32 04:32 04:32 WBC 13.5 H (3.8-10.6) k/uL RBC 3.35 L (4.30-5.90) m/uL Hgb 10.5 L (13.0-17.5) gm/dL Hct 31.0 L (39.0-53.0) % Plt Count 459 H (150-450) k/uL Neutrophils # 12.2 H (1.3-7.7) k/uL Lymphocytes # 0.7 L (1.0-4.8) k/uL APTT 58.3 H (22.0-30.0) sec Sodium 136 L (137-145) mmol/L BUN 28 H (9-20) mg/dL Glucose 227 H (74-99) mg/dL POC Glucose (mg/dL) (75-99) mg/dL Calcium 7.5 L (8.4-10.2) mg/dL 02/28/19 02/28/19 Range/Units 06:03 11:41 WBC (3.8-10.6) k/uL RBC (4.30-5.90) m/uL Hgb (13.0-17.5) gm/dL Hct (39.0-53.0) % Plt Count (150-450) k/uL Neutrophils # (1.3-7.7) k/uL Lymphocytes # (1.0-4.8) k/uL APTT (22.0-30.0) sec Sodium (137-145) mmol/L BUN (9-20) mg/dL Glucose (74-99) mg/dL POC Glucose (mg/dL) 213 H 220 H (75-99) mg/dL Calcium (8.4-10.2) mg/dL Microbiology - Last 24 Hours (Table) 02/21/19 13:21 Blood Culture - Final Blood No Growth after 144 hours Assessment and Plan Plan: 1 status post laparoscopic Manuel fundoplication. The patient is postop day #13 2 post operative small bowel obstruction/ileus, expected outcome of surgery, thi s improved and the patient is producing bowel activity and the NG tube was removed. 3 small bowel perforation, post-extremity laparotomy and repair of a perforated small bowel with 3 mm tear. The patient is postop day #7 4 NPO nutritional status improved and the patient is still receiving PPN in addition to clear liquid diet. 5 paroxysmal atrial fibrillation current rhythm is sinus, rate is controlled and the patient has been started on Eliquis. 6 delirium, recovered 7 bilateral pleural effusion with extensive anasarca and volume overload and currently the patient IV Lasix, and the third spacing is improving and the patient is lower extremity edema is also improving. The patient is still on IV Lasix 20 mg IV push every 12 hours. 8 leukocytosis, improved compared to yesterday and the white cell count is down to 15.1 9 chronic normocytic anemia Plan The patient is looking better. The patient is ambulating. Continue IV Lasix. Advance diet. Discontinue TPN for now. Start on long-term anticoagulation with Eliquis. Continue same antibiotic coverage. We'll continue to follow. He'll be staying in ICU for another 24 hours.
[2019-02-28] MEDS: 1: MVI, ADULT NO.4 WITH VIT K 10 ML, TRACE (CONC-1ML/DOSE) 1 ML, POTASSIUM CHLORIDE 40 M IV SCH ×8 (15:17→19:27)
--- NOTE | 2019-02-28 16:49 | PN ---
PROGRESS NOTE DATE OF SERVICE: 02/28/2019. REASON FOR FOLLOWUP: Secondary peritonitis. INTERVAL HISTORY: The patient is currently afebrile. The patient has been breathing more comfortably. The patient denies having any chest pain; very minimal cough. No nausea, vomiting. No significant abdominal pain. He did have a bowel movement. He has been tolerating his diet. On examination, blood pressure 120/66, pulse of 79, temperature 98.6. He is 95% on room air. General description is an elderly male up in the bed in no distress. RESPIRATORY SYSTEM: Unlabored breathing with decreased breath sounds at the base. No wheeze. HEART: S1, S2. Regular rate and rhythm. ABDOMEN: Soft. No tenderness. LABS: Hemoglobin is 10.5, white count 13.5, BUN of 28, creatinine 0.95. DIAGNOSTIC IMPRESSION AND PLAN: Patient with secondary peritonitis. He did have a perforated small bowel, status post operative repair. So far blood culture has been negative. Patient is currently covered with Zosyn; to continue for now while monitoring his clinical course closely along with Eraxis. White count is showing a downward trend. Family at the bedside. Their questions were answered. MMODL / IJN: [id number] /
[2019-02-28 17:15] LABS: Glucose,Whole Blood 101 mg/dL (75-99)
[2019-02-28] MEDS: POTASSIUM CHLORIDE ER 20 MEQ TAB.ER PO SCH ×2 (19:14→21:08)
[2019-02-28] MEDS: QUEtiapine 50 MG TAB PO SCH (21:08)
[2019-02-28] MEDS: INSULIN DETEMIR (LEVEMIR) 100 UNIT/ML SYR SQ SCH (21:18)
[2019-02-28 21:29] LABS: Glucose,Whole Blood 127 mg/dL (75-99)
[2019-02-28 23:28] LABS: Glucose,Whole Blood 103 mg/dL (75-99)
[2019-03-01] MEDS: POTASSIUM CHLORIDE ER 20 MEQ TAB.ER PO SCH ×2 (00:22→01:34)
[2019-03-01] MEDS: SODIUM CHLORIDE 0.9% 1,000 ML IV SCH ×2 (01:35→12:38)
[2019-03-01] MEDS: PIPERACILLIN-TAZOBACTAM 3.375 GM in SODIUM CHLORIDE 0.9% 100 ML IVPB SCH ×3 (04:03→21:06)
[2019-03-01 04:19] LABS: Glucose,Whole Blood 34 mg/dL (75-99)
[2019-03-01] MEDS ORDERED: DEXTROSE 50% SYRINGE 50 ML IVP STA (04:34)
[2019-03-01 04:45] LABS: Glucose,Whole Blood 31 mg/dL (75-99)
[2019-03-01 05:18] LABS: Glucose,Whole Blood 92 mg/dL (75-99)
[2019-03-01] MEDS ORDERED: DEXTROSE 10 % IN WATER 250 ML IV ONE (05:55)
[2019-03-01] MEDS: METOCLOPRAMIDE 5 MG/ML 2 ML VIAL IVP SCH ×3 (06:07→18:46)
[2019-03-01 06:34] LABS: Glucose,Whole Blood 98 mg/dL (75-99)
--- NOTE | 2019-03-01 06:44 | XR ---
EXAMINATION TYPE: XR chest 1V DATE OF EXAM: 03/01/2019 HISTORY: CHF/PNU. REFERENCE: Previous study dated 02/28/2019. FINDINGS: A right internal jugular catheter remains in place. Its tip is in the right atrium. The heart is enlarged. There is bibasilar airspace disease IMPRESSION: 1. CARDIOMEGALY. 2. BIBASILAR AIRSPACE DISEASE, LIKELY REPRESENTING PNEUMONIA. 3. SMALL, BILATERAL EFFUSIONS.
[2019-03-01 07:09] LABS: Basophils % (A) 0 %; Eosinophils # (A) 0.1 k/uL (0-0.7); Eosinophils % (A) 0 %; HCT 30.6 % (39.0-53.0); HGB 10.3 gm/dL (13.0-17.5); Hypochromasia Slight; Lymphocytes # (A) 0.6 k/uL (1.0-4.8); Lymphocytes % (A) 5 %; MCH 31.9 pg (25.0-35.0); MCHC 33.5 g/dL (31.0-37.0); MCV 95.3 fL (80.0-100.0); Mean Platelet Volume 7.7; Monocytes # (A) 0.5 k/uL (0-1.0); Monocytes % (A) 4 %; Neutrophils # (A) 12.5 k/uL (1.3-7.7); Neutrophils % (A) 90 %; Platelet Count 447 k/uL (150-450); RBC 3.21 m/uL (4.30-5.90); RDW 13.1 % (11.5-15.5); WBC 13.9 k/uL (3.8-10.6)
[2019-03-01 07:22] LABS: Calcium 7.8 mg/dL (8.4-10.2); Magnesium 2.2 mg/dL (1.6-2.3); Phosphorus 5.2 mg/dL (2.5-4.5); Potassium 4.2 mmol/L (3.5-5.1)
[2019-03-01] MEDS ORDERED: ACETAMINOPHEN TAB 325 MG TAB PO PRN (07:46)
[2019-03-01] MEDS: INSULIN ASPART (NovoLOG) 100 UNIT/ML VIAL SQ SCH ×4 (08:32→21:09)
[2019-03-01] MEDS: ANIDULAFUNGIN 100 MG in SODIUM CHLORIDE 0.9% 100 ML IVPB SCH (08:49)
[2019-03-01] MEDS: FUROSEMIDE 10 MG/ML 2 ML VIAL IV SCH ×2 (08:49→21:09)
[2019-03-01] MEDS: APIXABAN 5 MG TAB PO SCH ×2 (08:50→20:18)
[2019-03-01] MEDS: TAMSULOSIN 0.4 MG CAP.ER.24H PO SCH (08:50)
[2019-03-01] MEDS: ACETAMINOPHEN TAB 325 MG TAB PO SCH ×2 (08:50→20:16)
[2019-03-01] MEDS: SIMETHICONE 40 MG/0.6 ML DROPS 2,000 MG/30 ML BOTTLE PO SCH ×4 (08:50→21:52)
[2019-03-01] MEDS: METOPROLOL TARTRATE 25 MG TAB PO SCH ×2 (08:50→20:18)
[2019-03-01] MEDS: PANTOPRAZOLE 40 MG/10 ML VIAL IVP SCH (08:52)
[2019-03-01 11:44] LABS: Glucose,Whole Blood 98 mg/dL (75-99)
--- NOTE | 2019-03-01 13:01 | P.PN ---
Subjective Hospital course: This is a pleasant 78 years old male with past medical history of diabetes mellitus, GERD, hypertension, arthritis. He was admitted for severe gastroesophageal reflux disease, he is status post Manuel fundoplication . Also his hospital course was complicated with bowel obstruction and he underwent exploratory laparotomy, patient has peritonitis secondary to bowel perforation. And patient is been seen by cardiology for A. fib with RVR, new onset. Patient today was still in the ICU, he sitting in the chair, there was a started on liquid diet and he is tolerating that well. Patient looks comfortable and not in distress. He is been followed by several consultants exiting the primary surgical team as well as the pulmonary/critical care and infectious disease team. Cardiology also on board. Patient looks like improving gradually. He is currently on Zosyn and Eraxis, intravenous Lasix 20 mg twice daily and heparin drip with the plan to switch to oral anticoagulation by cardiology team. Vitas looks stable although patient is tachypneic at times. Leukocytosis is improving down 13.5 K, hemoglobin is 10.5. Sodium 136 and creatinine 0.9, sugar is controlled. 03/01/2019 Patient remains in the ICU, clinically looks the same as yesterday, he is on a clear liquid diet and [place] of his meal, his abdominal pain is minimal and expected at the surgical site with no nausea vomiting and he has little of bowel movements on the loose side but no zulma diarrhea. TPN has been stopped and his sugar dropped so patient To the ICU for further monitoring. The media was stopped and patient At insulin sliding scale Chest x-ray: Bibasilar air disease possible pneumonia per Radiologist, however clinically the and goes more with atelectasis. Patient remains on Zosyn and eraxis as per infectious disease recommendation, therefore his bowel infection and peritonitis. Also he is on Eliquis 5 mg and Lasix IV 20 mg twice a day Review of systems CONSTITUTIONAL: No fever, no malaise, no fatigue. HEENT: No recent visual problems or hearing problems. Denied any sore throat. CARDIOVASCULAR: No orthopnea, PND, no palpitations, no syncope. PULMONARY: No shortness of breath, no cough, no hemoptysis. GASTROINTESTINAL: No diarrhea, Normoactive bowel sounds. NEUROLOGICAL: No headaches, no weakness, no numbness. HEMATOLOGICAL: Denies any bleeding or petechiae. GENITOURINARY: Denies any burning micturition, frequency, or urgency. MUSCULOSKELETAL/RHEUMATOLOGICAL: Denies any joint pain, swelling, or any muscle pain. ENDOCRINE: Denies any polyuria or polydipsia. Active Medications Generic Name Dose Route Start Last Admin Trade Name Freq PRN Reason Stop Dose Admin Acetaminophen 650 mg 02/14/19 21:00 03/01/19 08:50 Tylenol Tab PO 650 mg BID [facility] Administration Acetaminophen 650 mg 03/01/19 07:46 Tylenol Tab PO Q4H PRN MILD PAIN/FEVER Albuterol/Ipratropium 3 ml 02/16/19 22:05 02/22/19 19:02 Duoneb 0.5 Mg-3 Mg/3 Ml Soln INHALATION 3 ml RT-Q4H PRN Administration Shortness Of Breath Apixaban 5 mg 02/28/19 09:00 03/01/19 08:50 Eliquis PO 5 mg BID [facility] Administration Furosemide 20 mg 02/24/19 10:30 03/01/19 08:49 Lasix IV 20 mg Q12HR [facility] Administration Haloperidol Lactate 2 mg 02/18/19 09:59 02/24/19 13:43 Haldol IVP 2 mg Q4HR PRN Administration Agitation or Acute Psychosis Haloperidol Lactate 4 mg 02/18/19 09:58 02/25/19 00:48 Haldol IVP 4 mg Q4HR PRN Administration Agitation Heparin Sodium (Porcine) 0 unit 02/22/19 08:54 Heparin IV PER PROTOCOL PRN Low PTT Protocol Hydromorphone HCl 0.5 mg 02/14/19 11:07 02/22/19 23:45 Dilaudid IVP 0.5 mg Q3HR PRN Administration Pain Hydromorphone HCl 1 mg 02/16/19 04:58 02/22/19 18:04 Dilaudid IVP 1 mg Q3HR PRN Administration Severe Pain Sodium Chloride 1,000 mls @ 20 mls/hr 02/15/19 13:00 03/01/19 12:38 Saline 0.9% IV Not Given .Q24H [facility] Anidulafungin 100 mg/ Sodium 130 mls @ 84 mls/hr 02/22/19 09:00 03/01/19 08:49 Chloride IVPB 84 mls/hr DAILY [facility] Administration Piperacillin Sod/Tazobactam 100 mls @ 25 mls/hr 02/24/19 12:00 03/01/19 12:23 Sod 3.375 gm/ Sodium Chloride IVPB 25 mls/hr Q8H [facility] Administration Insulin Aspart 0 unit 02/28/19 17:30 03/01/19 12:38 Novolog SQ Not Given ACHS [facility] Protocol Labetalol HCl 10 mg 02/19/19 22:30 02/28/19 05:13 Trandate IVP 10 mg Q6HR PRN Administration Hypertension Metoclopramide HCl 10 mg 02/15/19 13:00 03/01/19 12:23 Reglan IVP 10 mg Q6HR [facility] Administration Metoprolol Tartrate 25 mg 02/28/19 09:00 03/01/19 08:50 Lopressor PO 25 mg BID [facility] Administration Miscellaneous Information 1 each 02/28/19 05:25 Potassium Per Protocol MISCELLANE DAILY PRN Per Protocol Protocol Naloxone HCl 0.2 mg 02/17/19 03:39 Narcan IV Q2M PRN Opioid Reversal Ondansetron HCl 4 mg 02/14/19 08:54 02/16/19 03:15 Zofran IVP 4 mg Q8HR PRN Administration Nausea And Vomiting Pantoprazole Sodium 40 mg 03/02/19 07:30 Protonix PO AC-BRKFST [facility] Quetiapine Fumarate 50 mg 02/23/19 22:30 02/28/19 21:08 Seroquel PO 50 mg HS [facility] Administration Simethicone 80 mg 02/15/19 11:00 03/01/19 08:50 Mylicon Drops PO 80 mg PCHS [facility] Administration Tamsulosin HCl 0.4 mg 02/16/19 08:30 03/01/19 08:50 Flomax PO 0.4 mg PC-[id number] [facility] Administration Objective - Vital Signs Vital signs: Vital Signs Temp 98.7 F 03/01/19 12:00 Pulse 85 03/01/19 12:00 Resp 29 H 03/01/19 12:00 BP 111/62 03/01/19 12:00 Pulse Ox 96 03/01/19 12:00 Intake & Output 02/28/19 03/01/19 03/01/19 18:59 06:59 18:59 Intake Total 936.058 980 243 Output Total 1060 1225 625 Balance -123.942 -245 -382 Weight 81.4 kg 80.7 kg Intake: IV 705 240 243 Anidulafungin 100 mg In 100 168 Sodium Chloride 0.9% 100 ml @ 84 mls/hr IVPB DAILY [facility] Rx#:[id number] Piperacillin-Tazobactam 3 25 .375 gm In Sodium Chloride 0.9% 100 ml @ 25 mls/hr IVPB Q8HR [facility] Rx# :[id number] Sodium Chloride 0.9% 1, 100 240 50 000 ml @ 20 mls/hr IV . Q24H [facility] Rx#:[id number] TPN 505 Intake, IV Titration 231.058 Amount Heparin Sod,Pork in 0.45% 231.058 NaCl 25,000 unit In 0.45 % NaCl 1 250ml.bag @ 11. 82 UNITS/KG/HR 10 mls/hr IV .Q24H [facility] Rx#: [id number] Oral 740 Output: Urine 1060 1225 625 Other: Voiding Method Indwelling Catheter Indwelling Catheter Indwelling Catheter # Voids 0 # Bowel Movements 1 1 - Exam GENERAL: The patient is alert and oriented x3, not in any acute distress. Well developed, well nourished. HEENT: Pupils are round and equally reacting to light. EOMI. No scleral icterus. No conjunctival pallor. Normocephalic, atraumatic. No pharyngeal erythema. No thyromegaly. CARDIOVASCULAR: S1 and S2 present. No murmurs, rubs, or gallops. PULMONARY: Chest is clear to auscultation, no wheezing or crackles. -ABDOMEN: Soft, expected mild postoperative tenderness, nondistended, normoactive bowel sounds. Wound is clean and dressing is in place MUSCULOSKELETAL: No joint swelling or deformity. EXTREMITIES: No cyanosis, clubbing, or pedal edema. NEUROLOGICAL: Gross neurological examination did not reveal any focal deficits. SKIN: No rashes. no petechiae. - Labs CBC & Chem 7: 03/01/19 06:00 03/01/19 06:00 Labs: Abnormal Lab Results - Last 24 Hours (Table) 02/28/19 02/28/19 02/28/19 Range/Units 17:02 21:17 23:16 WBC (3.8-10.6) k/uL RBC (4.30-5.90) m/uL Hgb (13.0-17.5) gm/dL Hct (39.0-53.0) % Neutrophils # (1.3-7.7) k/uL Lymphocytes # (1.0-4.8) k/uL BUN (9-20) mg/dL Glucose (74-99) mg/dL POC Glucose (mg/dL) 101 H 127 H 103 H (75-99) mg/dL Calcium (8.4-10.2) mg/dL Phosphorus (2.5-4.5) mg/dL 03/01/19 03/01/19 03/01/19 Range/Units 04:08 04:33 06:00 WBC (3.8-10.6) k/uL RBC (4.30-5.90) m/uL Hgb (13.0-17.5) gm/dL Hct (39.0-53.0) % Neutrophils # (1.3-7.7) k/uL Lymphocytes # (1.0-4.8) k/uL BUN 26 H (9-20) mg/dL Glucose 114 H (74-99) mg/dL POC Glucose (mg/dL) 34 L 31 L (75-99) mg/dL Calcium 7.8 L (8.4-10.2) mg/dL Phosphorus 5.2 H (2.5-4.5) mg/dL 03/01/19 Range/Units 06:00 WBC 13.9 H (3.8-10.6) k/uL RBC 3.21 L (4.30-5.90) m/uL Hgb 10.3 L (13.0-17.5) gm/dL Hct 30.6 L (39.0-53.0) % Neutrophils # 12.5 H (1.3-7.7) k/uL Lymphocytes # 0.6 L (1.0-4.8) k/uL BUN (9-20) mg/dL Glucose (74-99) mg/dL POC Glucose (mg/dL) (75-99) mg/dL Calcium (8.4-10.2) mg/dL Phosphorus (2.5-4.5) mg/dL Assessment and Plan Assessment: - Status post Manuel fundoplication due to severe gastroesophageal reflux disease. Continue with PPI - Peritonitis secondary to bowel perforation. Status post expiratory laparotomy. - Postoperative ileus with resultant bowel obstruction. Improvement - New onset atrial fibrillation with RVR. Currently on metoprolol and Eliquis. Cardiology is following. -Fluid overload, secondary to potential hydration. Improving on IV Lasix - Type 2 diabetes mellitus: Sliding scale insulin hold off metformin as mentioned above -Hypertension, improvement - DVT prophylaxis with Eliquis -GI prophylaxis: Protonix Prognosis is guarded
--- NOTE | 2019-03-01 13:10 | P.PN ---
Subjective Progress Note Date: 03/01/19 On 02/28/2019 I'm seeing this patient for a follow-up. He is not clear liquid diet. He is having no significant abdominal distention. Remains in the same antibiotic coverage. He is on a combination of Eraxis and Zosyn. No fever. No chills. No hemodynamic instability. He remains a negative fluid balance per lower extremity edema is improving. Scrotal edema is improving. Penile swelling is improving. He is currently off PPN. He had an episode with his blood sugar dropped earlier this morning I took the opportunity to stop his Levemir insulin. He is emanating. He is using incentive spirometer. There has been no other significant events otherwise for now. His mental status appropriate. Is postop day #14 following his Manuel fundoplication and he is postop day #8 following repair of a small bowel perforation. NG tube has been removed. Objective - Vital Signs Vital signs: Vital Signs Temp 98.7 F 03/01/19 12:00 Pulse 85 03/01/19 12:00 Resp 29 H 03/01/19 12:00 BP 111/62 03/01/19 12:00 Pulse Ox 96 03/01/19 12:00 Intake & Output 02/28/19 03/01/19 03/01/19 18:59 06:59 18:59 Intake Total 936.058 980 243 Output Total 1060 1225 625 Balance -123.942 -245 -382 Weight 81.4 kg 80.7 kg Intake: IV 705 240 243 Anidulafungin 100 mg In 100 168 Sodium Chloride 0.9% 100 ml @ 84 mls/hr IVPB DAILY [facility] Rx#:[id number] Piperacillin-Tazobactam 3 25 .375 gm In Sodium Chloride 0.9% 100 ml @ 25 mls/hr IVPB Q8HR [facility] Rx# :[id number] Sodium Chloride 0.9% 1, 100 240 50 000 ml @ 20 mls/hr IV . Q24H [facility] Rx#:[id number] TPN 505 Intake, IV Titration 231.058 Amount Heparin Sod,Pork in 0.45% 231.058 NaCl 25,000 unit In 0.45 % NaCl 1 250ml.bag @ 11. 82 UNITS/KG/HR 10 mls/hr IV .Q24H [facility] Rx#: [id number] Oral 740 Output: Urine 1060 1225 625 Other: Voiding Method Indwelling Catheter Indwelling Catheter Indwelling Catheter # Voids 0 # Bowel Movements 1 1 - Exam Gen. appearance he is calm and comfortable likely distress. The patient is confused and awake and alert 3 and he has a sitter in place at the bedside. Head exam was generally normal. There was no scleral icterus or corneal arcus. Mucous membranes were moist. Neck was supple and without jugular venous distension, thyromegaly, or carotid bruits. Carotids were easily palpable bilaterally. There was no adenopathy. The patient has an NG tube in place. Lungs sounds are diminished in lung bases bilaterally with diminished breath sound in the mid and lower lung mad[place]. There is also dullness to percussion. Cardiac exam revealed the PMI to be normally situated and sized. The rhythm was regular and no extrasystoles were noted during several minutes of auscultation. The first and second heart sounds were normal and physiologic splitting of the second heart sound was noted. There were no murmurs, rubs, clicks, or gallops. Abdominal exam revealed normal bowel sounds. The abdomen was rather firm, non- tender, and without masses, organomegaly, or appreciable enlargement of the abdominal aorta. The patient has some slight abdominal distention. Surgical wound site over the anterior abdominal wall is clean. Bowel sounds are hypoactive and absent. No direct tenderness. No rebound tenderness. No guarding. Examination of the extremities revealed easily palpable radial, femoral and pedal pulses. There was no cyanosis, clubbing or edema. Examination of the skin revealed no evidence of significant rashes, suspicious appearing nevi or other concerning lesions. Neurologically awake 3. No cranial nerve deficits. No focal neurological deficits. Pupils are equal and reactive to light. - Labs CBC & Chem 7: 03/01/19 06:00 03/01/19 06:00 Labs: Abnormal Lab Results - Last 24 Hours (Table) 02/28/19 02/28/19 02/28/19 Range/Units 17:02 21:17 23:16 WBC (3.8-10.6) k/uL RBC (4.30-5.90) m/uL Hgb (13.0-17.5) gm/dL Hct (39.0-53.0) % Neutrophils # (1.3-7.7) k/uL Lymphocytes # (1.0-4.8) k/uL BUN (9-20) mg/dL Glucose (74-99) mg/dL POC Glucose (mg/dL) 101 H 127 H 103 H (75-99) mg/dL Calcium (8.4-10.2) mg/dL Phosphorus (2.5-4.5) mg/dL 03/01/19 03/01/19 03/01/19 Range/Units 04:08 04:33 06:00 WBC (3.8-10.6) k/uL RBC (4.30-5.90) m/uL Hgb (13.0-17.5) gm/dL Hct (39.0-53.0) % Neutrophils # (1.3-7.7) k/uL Lymphocytes # (1.0-4.8) k/uL BUN 26 H (9-20) mg/dL Glucose 114 H (74-99) mg/dL POC Glucose (mg/dL) 34 L 31 L (75-99) mg/dL Calcium 7.8 L (8.4-10.2) mg/dL Phosphorus 5.2 H (2.5-4.5) mg/dL 03/01/19 Range/Units 06:00 WBC 13.9 H (3.8-10.6) k/uL RBC 3.21 L (4.30-5.90) m/uL Hgb 10.3 L (13.0-17.5) gm/dL Hct 30.6 L (39.0-53.0) % Neutrophils # 12.5 H (1.3-7.7) k/uL Lymphocytes # 0.6 L (1.0-4.8) k/uL BUN (9-20) mg/dL Glucose (74-99) mg/dL POC Glucose (mg/dL) (75-99) mg/dL Calcium (8.4-10.2) mg/dL Phosphorus (2.5-4.5) mg/dL Assessment and Plan Plan: 1 status post laparoscopic Manuel fundoplication. The patient is postop day #14 2 post operative small bowel obstruction/ileus, expected outcome of surgery, recovered 3 small bowel perforation, post-extremity laparotomy and repair of a perforated small bowel with 3 mm tear. The patient is postop day #8 4 PPN for nutritional support. This continued. The patient had a bout of hypoglycemia, treated. Currently on clear liquid diet. 5 paroxysmal atrial fibrillation current rhythm is sinus, rate is controlled and the patient has been started on Eliquis. 6 delirium, recovered 7 bilateral pleural effusion with extensive anasarca and volume overload and currently the patient IV Lasix, and the third spacing is improving and the patient is lower extremity edema is also improving. The patient is still on IV Lasix 20 mg IV push every 12 hours. 8 leukocytosis, improved compared to yesterday and the white cell count is down 9 chronic normocytic anemia Plan Discontinue the Levemir insulin. Monitor blood sugar. Advance diet as tolerated. Continue diuretics. Continue antibiotics. Mobility and movement and activity. We'll continue to follow.
--- NOTE | 2019-03-01 15:02 | PN ---
PROGRESS NOTE DATE OF SERVICE: 03/01/2019. REASON FOR FOLLOWUP: Secondary peritonitis. INTERVAL HISTORY: The patient is currently afebrile. The patient has been breathing comfortably. NG has been discontinued. No nausea, no vomiting. Abdominal pain no worsening. Did have bowel movement. PHYSICAL EXAMINATION: Blood pressure 111/62 with pulse 85, temperature 98.7. He is 96% on room air. General description is an elderly male up in the bed in no distress. RESPIRATORY SYSTEM: Unlabored breathing with decreased breath sounds at the base. No wheeze. HEART: S1, S2. Regular rate and rhythm. ABDOMEN: Soft. No tenderness. Mild distention. LABS: Hemoglobin is 10.3, white count 13.9, BUN of 26, creatinine 0.99. DIAGNOSTIC IMPRESSION AND PLAN: Patient with secondary peritonitis from a perforated small bowel, status post repair of the same. The patient is currently afebrile. White count around 13,000. To continue to monitor closely. Continue with Eraxis and Zosyn and continue with supportive care. MMODL / IJN: [id number] /
--- NOTE | 2019-03-01 15:10 | P.PN ---
Subjective Progress Note Date: 03/01/19 CHIEF COMPLAINT: Bowel perforation HISTORY OF PRESENT ILLNESS: The patient is a 78-year-old male status post Manuel fundoplasty, 02/14/2019 and status post small bowel resection for small bowel perforation 02/20/2019. He is resting comfortably. He is tolerating full liquid diet. He is still in the ICU. ROS: No fevers or chills. No productive sputum. PHYSICAL EXAM: VITAL SIGNS: Reviewed CONSTITUTIONAL: Well developed and in no acute distress. EYES: Conjuctivae without sclera icterus. Extraocular movements grossly intact. HEAD, EARS, NOSE, THROAT: Moist buccal mucosa. Head is atraumatic, normocephalic. Hears conversational speech. No nasal drainage. NECK: Supple. No thyroidomegaly. RESPIRATORY: Non-labored respirations and equal bilateral excursions. CARDIOVASCULAR: Palpable 2+ radial pulses. ABDOMEN: Dressing clean dry and intact. Abdomen with mild distention. MUSCULOSKELETAL: No gross deformity of the lower extremities noted. No clubbing. No cyanosis. SKIN: Good skin turgor. Well perfused. NEUROLOGIC: Cranial nerves I through XII grossly intact. No focal or lateraliz ing signs. PSYCH: Appropriate affect. Alert and oriented to person, place and time. CLINCAL LABS: WBC 13,900 stable ASSESSMENT: 1. Gastroesophageal reflux disease 2. Status post Manuel 3. Small bowel perforation PLAN: 1. Continue full liquid diet 2. Continue IV antibiotics 3. Continue with current care. Objective - Vital Signs Vital signs: Vital Signs Temp 98.7 F 03/01/19 12:00 Pulse 91 03/01/19 14:00 Resp 30 H 03/01/19 14:00 BP 126/65 03/01/19 14:00 Pulse Ox 94 L 03/01/19 14:00 Intake & Output 02/28/19 03/01/19 03/01/19 18:59 06:59 18:59 Intake Total 936.058 980 288 Output Total 1060 1225 725 Balance -123.942 -245 -437 Weight 81.4 kg 80.7 kg Intake: IV 705 240 263 Anidulafungin 100 mg In 100 168 Sodium Chloride 0.9% 100 ml @ 84 mls/hr IVPB DAILY [facility] Rx#:[id number] Piperacillin-Tazobactam 3 25 .375 gm In Sodium Chloride 0.9% 100 ml @ 25 mls/hr IVPB Q8HR [facility] Rx# :[id number] Sodium Chloride 0.9% 1, 100 240 70 000 ml @ 20 mls/hr IV . Q24H [facility] Rx#:[id number] TPN 505 Intake, IV Titration 231.058 25 Amount Heparin Sod,Pork in 0.45% 231.058 NaCl 25,000 unit In 0.45 % NaCl 1 250ml.bag @ 11. 82 UNITS/KG/HR 10 mls/hr IV .Q24H [facility] Rx#: [id number] Piperacillin-Tazobactam 3 25 .375 gm In Sodium Chloride 0.9% 100 ml @ 25 mls/hr IVPB Q8H [facility] Rx#: [id number] Oral 740 Output: Urine 1060 1225 725 Other: Voiding Method Indwelling Catheter Indwelling Catheter Indwelling Catheter # Voids 0 # Bowel Movements 1 1 - Labs CBC & Chem 7: 03/01/19 06:00 03/01/19 06:00 Labs: Abnormal Lab Results - Last 24 Hours (Table) 02/28/19 02/28/19 02/28/19 Range/Units 17:02 21:17 23:16 WBC (3.8-10.6) k/uL RBC (4.30-5.90) m/uL Hgb (13.0-17.5) gm/dL Hct (39.0-53.0) % Neutrophils # (1.3-7.7) k/uL Lymphocytes # (1.0-4.8) k/uL BUN (9-20) mg/dL Glucose (74-99) mg/dL POC Glucose (mg/dL) 101 H 127 H 103 H (75-99) mg/dL Calcium (8.4-10.2) mg/dL Phosphorus (2.5-4.5) mg/dL 03/01/19 03/01/19 03/01/19 Range/Units 04:08 04:33 06:00 WBC (3.8-10.6) k/uL RBC (4.30-5.90) m/uL Hgb (13.0-17.5) gm/dL Hct (39.0-53.0) % Neutrophils # (1.3-7.7) k/uL Lymphocytes # (1.0-4.8) k/uL BUN 26 H (9-20) mg/dL Glucose 114 H (74-99) mg/dL POC Glucose (mg/dL) 34 L 31 L (75-99) mg/dL Calcium 7.8 L (8.4-10.2) mg/dL Phosphorus 5.2 H (2.5-4.5) mg/dL 03/01/19 Range/Units 06:00 WBC 13.9 H (3.8-10.6) k/uL RBC 3.21 L (4.30-5.90) m/uL Hgb 10.3 L (13.0-17.5) gm/dL Hct 30.6 L (39.0-53.0) % Neutrophils # 12.5 H (1.3-7.7) k/uL Lymphocytes # 0.6 L (1.0-4.8) k/uL BUN (9-20) mg/dL Glucose (74-99) mg/dL POC Glucose (mg/dL) (75-99) mg/dL Calcium (8.4-10.2) mg/dL Phosphorus (2.5-4.5) mg/dL Assessment and Plan (1) Hiatal hernia with gastroesophageal reflux Current Visit: Yes Status: Acute Code(s): K21.9 - GASTRO-ESOPHAGEAL REFLUX DISEASE WITHOUT ESOPHAGITIS; K44.9 - DIAPHRAGMATIC HERNIA WITHOUT OBSTRUCTION OR GANGRENE SNOMED Code(s): 596547794 (2) Diabetes type 2, uncontrolled Current Visit: Yes Status: Acute Code(s): E11.65 - TYPE 2 DIABETES MELLITUS WITH HYPERGLYCEMIA SNOMED Code(s): 675926965 (3) Urinary retention with incomplete bladder emptying Current Visit: Yes Status: Acute Code(s): R33.9 - RETENTION OF URINE, UNSPECIFIED SNOMED Code(s): 901441548 (4) Postoperative pain Current Visit: Yes Status: Acute Code(s): G89.18 - OTHER ACUTE POSTPROCEDURAL PAIN SNOMED Code(s): 621110258 (5) Small bowel perforation Current Visit: Yes Status: Acute Code(s): K63.1 - PERFORATION OF INTESTINE (NONTRAUMATIC) SNOMED Code(s): 644591310 (6) Leukocytosis Current Visit: Yes Status: Acute Code(s): D72.829 - ELEVATED WHITE BLOOD CELL COUNT, UNSPECIFIED SNOMED Code(s): 958716542
[2019-03-01 17:15] LABS: Glucose,Whole Blood 119 mg/dL (75-99)
[2019-03-01] MEDS: QUEtiapine 50 MG TAB PO SCH (20:18)
[2019-03-01 20:34] LABS: Glucose,Whole Blood 116 mg/dL (75-99)
[2019-03-02] MEDS: METOCLOPRAMIDE 5 MG/ML 2 ML VIAL IVP SCH ×5 (00:52→23:22)
[2019-03-02 01:02] LABS: Glucose,Whole Blood 134 mg/dL (75-99)
[2019-03-02 02:14] LABS: Glucose,Whole Blood 122 mg/dL (75-99)
[2019-03-02 04:57] LABS: Calcium 7.7 mg/dL (8.4-10.2); Magnesium 2.1 mg/dL (1.6-2.3); Phosphorus 4.6 mg/dL (2.5-4.5); Potassium 4.1 mmol/L (3.5-5.1)
[2019-03-02 05:05] LABS: Basophils % (A) 0 %; Eosinophils # (A) 0.1 k/uL (0-0.7); Eosinophils % (A) 1 %; HCT 29.8 % (39.0-53.0); HGB 10.1 gm/dL (13.0-17.5); Lymphocytes # (A) 0.7 k/uL (1.0-4.8); Lymphocytes % (A) 6 %; MCH 31.9 pg (25.0-35.0); MCHC 33.7 g/dL (31.0-37.0); MCV 94.5 fL (80.0-100.0); Mean Platelet Volume 7.7; Monocytes # (A) 0.4 k/uL (0-1.0); Monocytes % (A) 3 %; Neutrophils # (A) 11.2 k/uL (1.3-7.7); Neutrophils % (A) 89 %; Platelet Count 471 k/uL (150-450); RBC 3.15 m/uL (4.30-5.90); RDW 13.1 % (11.5-15.5); WBC 12.6 k/uL (3.8-10.6)
[2019-03-02] MEDS: PIPERACILLIN-TAZOBACTAM 3.375 GM in SODIUM CHLORIDE 0.9% 100 ML IVPB SCH ×3 (05:40→21:30)
[2019-03-02 07:10] LABS: Glucose,Whole Blood 137 mg/dL (75-99)
[2019-03-02] MEDS: ACETAMINOPHEN TAB 325 MG TAB PO SCH ×2 (07:44→21:22)
[2019-03-02] MEDS: PANTOPRAZOLE 40 MG TABLET PO SCH (07:44)
[2019-03-02] MEDS: METOPROLOL TARTRATE 25 MG TAB PO SCH ×2 (07:44→21:22)
[2019-03-02] MEDS: APIXABAN 5 MG TAB PO SCH ×2 (07:44→21:22)
[2019-03-02] MEDS: SIMETHICONE 40 MG/0.6 ML DROPS 2,000 MG/30 ML BOTTLE PO SCH ×4 (07:44→21:36)
[2019-03-02] MEDS: TAMSULOSIN 0.4 MG CAP.ER.24H PO SCH (07:44)
[2019-03-02] MEDS: ANIDULAFUNGIN 100 MG in SODIUM CHLORIDE 0.9% 100 ML IVPB SCH (07:45)
[2019-03-02] MEDS: INSULIN ASPART (NovoLOG) 100 UNIT/ML VIAL SQ SCH ×4 (07:50→21:25)
--- NOTE | 2019-03-02 07:53 | P.PN ---
Subjective Progress Note Date: 03/02/19 On 03/02/2019 I'm seeing the patient for a follow-up. Doing extremely well. No major complaints. Ambulating. Currently on room air oxygen. Lower extremity edema is improving. Scrotal and penile swelling is also improving. He has bowel activity. Surgical wound site is dry clean and intact. No nausea. No vomiting. No emesis. Creatinine is at 1.1 and it stable. White cell count of 12.6. He is postop day #15 following his fundoplication postop day #9 following his lumbar repair. He remains on the same antibiotic coverage. Peter catheter still in place. He is also a triple-lumen catheter in his right IJ. Objective - Vital Signs Vital signs: Vital Signs Temp 98.6 F 03/02/19 04:00 Pulse 101 H 03/02/19 05:00 Resp 16 03/02/19 05:00 BP 138/56 03/02/19 05:00 Pulse Ox 93 L 03/02/19 05:00 Intake & Output 03/01/19 03/02/19 03/02/19 18:59 06:59 18:59 Intake Total 413 700 Output Total 1225 950 Balance -812 -250 Weight 77 kg Intake: IV 313 200 Anidulafungin 100 mg In 168 Sodium Chloride 0.9% 100 ml @ 84 mls/hr IVPB DAILY [facility] Rx#:[id number] Piperacillin-Tazobactam 3 25 .375 gm In Sodium Chloride 0.9% 100 ml @ 25 mls/hr IVPB Q8HR [facility] Rx# :[id number] Sodium Chloride 0.9% 1, 120 200 000 ml @ 20 mls/hr IV . Q24H [facility] Rx#:[id number] Intake, IV Titration 100 Amount Piperacillin-Tazobactam 3 100 .375 gm In Sodium Chloride 0.9% 100 ml @ 25 mls/hr IVPB Q8H [facility] Rx#: [id number] Oral 500 Output: Urine 1225 950 Other: Voiding Method Indwelling Catheter Indwelling Catheter # Voids 175 - Exam Gen. appearance he is calm and comfortable likely distress. The patient is confused and awake and alert 3 and he has a sitter in place at the bedside. Not a room air oxygen and is not having any respiratory difficulties Head exam was generally normal. There was no scleral icterus or corneal arcus. Mucous membranes were moist. Neck was supple and without jugular venous distension, thyromegaly, or carotid bruits. Carotids were easily palpable bilaterally. There was no adenopathy. Lungs sounds are diminished in lung bases bilaterally with diminished breath sound in the mid and lower lung mad[place]. There is also dullness to percussion. Cardiac exam revealed the PMI to be normally situated and sized. The rhythm was regular and no extrasystoles were noted during several minutes of auscultation. The first and second heart sounds were normal and physiologic splitting of the second heart sound was noted. There were no murmurs, rubs, clicks, or gallops. Abdominal exam revealed normal bowel sounds. The abdomen was rather firm, non- tender, and without masses, organomegaly, or appreciable enlargement of the abdominal aorta. The patient has some slight abdominal distention. Surgical wound site over the anterior abdominal wall is clean. Bowel sounds are hypoactive and absent. No direct tenderness. No rebound tenderness. No guarding. Examination of the extremities revealed easily palpable radial, femoral and pedal pulses. There was no cyanosis, clubbing and significant improvement in the edema in lower extremities in the scrotal edema. Examination of the skin revealed no evidence of significant rashes, suspicious appearing nevi or other concerning lesions. Neurologically awake 3. No cranial nerve deficits. No focal neurological deficits. Pupils are equal and reactive to light. - Labs CBC & Chem 7: 03/02/19 04:17 03/02/19 04:17 Labs: Abnormal Lab Results - Last 24 Hours (Table) 03/01/19 03/01/19 03/02/19 Range/Units 17:03 20:23 00:50 WBC (3.8-10.6) k/uL RBC (4.30-5.90) m/uL Hgb (13.0-17.5) gm/dL Hct (39.0-53.0) % Plt Count (150-450) k/uL Neutrophils # (1.3-7.7) k/uL Lymphocytes # (1.0-4.8) k/uL BUN (9-20) mg/dL Glucose (74-99) mg/dL POC Glucose (mg/dL) 119 H 116 H 134 H (75-99) mg/dL Calcium (8.4-10.2) mg/dL Phosphorus (2.5-4.5) mg/dL 03/02/19 03/02/19 03/02/19 Range/Units 02:03 04:17 04:17 WBC 12.6 H (3.8-10.6) k/uL RBC 3.15 L (4.30-5.90) m/uL Hgb 10.1 L (13.0-17.5) gm/dL Hct 29.8 L (39.0-53.0) % Plt Count 471 H (150-450) k/uL Neutrophils # 11.2 H (1.3-7.7) k/uL Lymphocytes # 0.7 L (1.0-4.8) k/uL BUN 26 H (9-20) mg/dL Glucose 137 H (74-99) mg/dL POC Glucose (mg/dL) 122 H (75-99) mg/dL Calcium 7.7 L (8.4-10.2) mg/dL Phosphorus 4.6 H (2.5-4.5) mg/dL 03/02/19 Range/Units 06:58 WBC (3.8-10.6) k/uL RBC (4.30-5.90) m/uL Hgb (13.0-17.5) gm/dL Hct (39.0-53.0) % Plt Count (150-450) k/uL Neutrophils # (1.3-7.7) k/uL Lymphocytes # (1.0-4.8) k/uL BUN (9-20) mg/dL Glucose (74-99) mg/dL POC Glucose (mg/dL) 137 H (75-99) mg/dL Calcium (8.4-10.2) mg/dL Phosphorus (2.5-4.5) mg/dL Assessment and Plan Plan: 1 status post laparoscopic Manuel fundoplication. The patient is postop day #15 2 post operative small bowel obstruction/ileus, expected outcome of surgery, r ecovered and the patient is tolerating soft diet. 3 small bowel perforation, post-extremity laparotomy and repair of a perforated small bowel with 3 mm tear. The patient is postop day #9 4 lower extremity edema, improving on diuretics 5 paroxysmal atrial fibrillation current rhythm is sinus, rate is controlled and the patient has been started on Eliquis. 6 delirium, recovered 7 bilateral pleural effusion with extensive anasarca and volume overload and currently the patient IV Lasix, and the third spacing is improving and the patient is lower extremity edema is also improving. The patient is still on IV Lasix 20 mg IV push every 12 hours. 8 leukocytosis, improved compared to yesterday and the white cell count is down 9 chronic normocytic anemia Plan In IV Lasix for another 24 hours. Ambulate in the hallway. Daily physical therapy. Remove the Peter catheter. Continue same antibiotic coverage with a combination of Eraxis and Zosyn. The patient can be transferred to a medical surgical floor.
[2019-03-02] MEDS: FUROSEMIDE 10 MG/ML 2 ML VIAL IV SCH (09:50)
[2019-03-02 11:52] LABS: Glucose,Whole Blood 215 mg/dL (75-99)
[2019-03-02 11:56] VITALS: BMI 25.8
[2019-03-02] MEDS: SODIUM CHLORIDE 0.9% 1,000 ML IV SCH (12:22)
--- NOTE | 2019-03-02 13:32 | P.PN ---
Subjective Hospital course: This is a pleasant 78 years old male with past medical history of diabetes mellitus, GERD, hypertension, arthritis. He was admitted for severe gastroesophageal reflux disease, he is status post Manuel fundoplication . Also his hospital course was complicated with bowel obstruction and he underwent exploratory laparotomy, patient has peritonitis secondary to bowel perforation. And patient is been seen by cardiology for A. fib with RVR, new onset. Patient today was still in the ICU, he sitting in the chair, there was a started on liquid diet and he is tolerating that well. Patient looks comfortable and not in distress. He is been followed by several consultants exiting the primary surgical team as well as the pulmonary/critical care and infectious disease team. Cardiology also on board. Patient looks like improving gradually. He is currently on Zosyn and Eraxis, intravenous Lasix 20 mg twice daily and heparin drip with the plan to switch to oral anticoagulation by cardiology team. Vitas looks stable although patient is tachypneic at times. Leukocytosis is improving down 13.5 K, hemoglobin is 10.5. Sodium 136 and creatinine 0.9, sugar is controlled. 03/01/2019 Patient remains in the ICU, clinically looks the same as yesterday, he is on a clear liquid diet and [place] of his meal, his abdominal pain is minimal and expected at the surgical site with no nausea vomiting and he has little of bowel movements on the loose side but no zulma diarrhea. TPN has been stopped and his sugar dropped so patient To the ICU for further monitoring. The media was stopped and patient At insulin sliding scale Chest x-ray: Bibasilar air disease possible pneumonia per Radiologist, however clinically the and goes more with atelectasis. Patient remains on Zosyn and eraxis as per infectious disease recommendation, therefore his bowel infection and peritonitis. Also he is on Eliquis 5 mg and Lasix IV 20 mg twice a day 03/02/2019 Patient today he is doing well, his abdominal pain is improving gradually, his sugar is controlled. He is hemodynamically stable. Patient is being transferred to the general medical floor today. Lateral views were looks stable with WBC is 12.6 K Objective - Vital Signs Vital signs: Vital Signs Temp 98.5 F 03/02/19 08:00 Pulse 96 03/02/19 08:00 Resp 18 03/02/19 08:00 BP 158/76 03/02/19 08:00 Pulse Ox 95 03/02/19 08:00 Intake & Output 03/01/19 03/02/19 03/02/19 18:59 06:59 18:59 Intake Total 413 700 Output Total 1225 950 Balance -812 -250 Weight 77 kg 77 kg Intake: IV 313 200 Anidulafungin 100 mg In 168 Sodium Chloride 0.9% 100 ml @ 84 mls/hr IVPB DAILY [facility] Rx#:[id number] Piperacillin-Tazobactam 3 25 .375 gm In Sodium Chloride 0.9% 100 ml @ 25 mls/hr IVPB Q8HR [facility] Rx# :[id number] Sodium Chloride 0.9% 1, 120 200 000 ml @ 20 mls/hr IV . Q24H [facility] Rx#:[id number] Intake, IV Titration 100 Amount Piperacillin-Tazobactam 3 100 .375 gm In Sodium Chloride 0.9% 100 ml @ 25 mls/hr IVPB Q8H [facility] Rx#: [id number] Oral 500 Output: Urine 1225 950 Other: Voiding Method Indwelling Catheter Indwelling Catheter Indwelling Catheter # Voids 175 - Exam GENERAL: The patient is alert and oriented x3, not in any acute distress. Well developed, well nourished. HEENT: Pupils are round and equally reacting to light. EOMI. No scleral icterus. No conjunctival pallor. Normocephalic, atraumatic. No pharyngeal erythema. No thyromegaly. CARDIOVASCULAR: S1 and S2 present. No murmurs, rubs, or gallops. PULMONARY: Chest is clear to auscultation, no wheezing or crackles. -ABDOMEN: Soft, expected mild postoperative tenderness, nondistended, normoactive bowel sounds. Wound is clean and dressing is in place MUSCULOSKELETAL: No joint swelling or deformity. EXTREMITIES: No cyanosis, clubbing, or pedal edema. NEUROLOGICAL: Gross neurological examination did not reveal any focal deficits. SKIN: No rashes. no petechiae. - Labs CBC & Chem 7: 03/02/19 04:17 03/02/19 04:17 Labs: Abnormal Lab Results - Last 24 Hours (Table) 03/01/19 03/01/19 03/02/19 Range/Units 17:03 20:23 00:50 WBC (3.8-10.6) k/uL RBC (4.30-5.90) m/uL Hgb (13.0-17.5) gm/dL Hct (39.0-53.0) % Plt Count (150-450) k/uL Neutrophils # (1.3-7.7) k/uL Lymphocytes # (1.0-4.8) k/uL BUN (9-20) mg/dL Glucose (74-99) mg/dL POC Glucose (mg/dL) 119 H 116 H 134 H (75-99) mg/dL Calcium (8.4-10.2) mg/dL Phosphorus (2.5-4.5) mg/dL 03/02/19 03/02/19 03/02/19 Range/Units 02:03 04:17 04:17 WBC 12.6 H (3.8-10.6) k/uL RBC 3.15 L (4.30-5.90) m/uL Hgb 10.1 L (13.0-17.5) gm/dL Hct 29.8 L (39.0-53.0) % Plt Count 471 H (150-450) k/uL Neutrophils # 11.2 H (1.3-7.7) k/uL Lymphocytes # 0.7 L (1.0-4.8) k/uL BUN 26 H (9-20) mg/dL Glucose 137 H (74-99) mg/dL POC Glucose (mg/dL) 122 H (75-99) mg/dL Calcium 7.7 L (8.4-10.2) mg/dL Phosphorus 4.6 H (2.5-4.5) mg/dL 03/02/19 03/02/19 Range/Units 06:58 11:40 WBC (3.8-10.6) k/uL RBC (4.30-5.90) m/uL Hgb (13.0-17.5) gm/dL Hct (39.0-53.0) % Plt Count (150-450) k/uL Neutrophils # (1.3-7.7) k/uL Lymphocytes # (1.0-4.8) k/uL BUN (9-20) mg/dL Glucose (74-99) mg/dL POC Glucose (mg/dL) 137 H 215 H (75-99) mg/dL Calcium (8.4-10.2) mg/dL Phosphorus (2.5-4.5) mg/dL Assessment and Plan Assessment: - Status post Manuel fundoplication due to severe gastroesophageal reflux disease. Continue with PPI - Peritonitis secondary to bowel perforation. Status post expiratory laparotomy. - Postoperative ileus with resultant bowel obstruction. Improvement - New onset atrial fibrillation with RVR. Currently on metoprolol and Eliquis. Cardiology is following. -Fluid overload, secondary to potential hydration. Improving on IV Lasix - Type 2 diabetes mellitus: Sliding scale insulin hold off metformin as mentioned above -Hypertension, improvement - DVT prophylaxis with Eliquis -GI prophylaxis: Protonix Prognosis is guarded
[2019-03-02] MEDS: FUROSEMIDE 20 MG TAB PO SCH (16:28)
--- NOTE | 2019-03-02 16:29 | P.PN ---
Subjective Progress Note Date: 03/02/19 CHIEF COMPLAINT: Bowel perforation HISTORY OF PRESENT ILLNESS: The patient is a 78-year-old male status post Manuel fundoplasty, 02/14/2019 and status post small bowel resection for small bowel perforation 02/20/2019. He is in the ICU. He is tolerating full liquid diet. ROS: No fevers or chills. No productive sputum. Had bowel movement and flatus today. PHYSICAL EXAM: VITAL SIGNS: Reviewed CONSTITUTIONAL: Well developed and in no acute distress. EYES: Conjuctivae without sclera icterus. Extraocular movements grossly intact. HEAD, EARS, NOSE, THROAT: Moist buccal mucosa. Head is atraumatic, normocephalic. Hears conversational speech. No nasal drainage. NECK: Supple. No thyroidomegaly. RESPIRATORY: Non-labored respirations and equal bilateral excursions. CARDIOVASCULAR: Palpable 2+ radial pulses. ABDOMEN: Dressing clean dry and intact. Nontender. Minimal distention. MUSCULOSKELETAL: No gross deformity of the lower extremities noted. No clubbing. No cyanosis. SKIN: Good skin turgor. Well perfused. NEUROLOGIC: Cranial nerves I through XII grossly intact. No focal or lat eralizing signs. PSYCH: Appropriate affect. Alert and oriented to person, place and time. CLINCAL LABS: WBC 13,900 down to 12.6 stable ASSESSMENT: 1. Gastroesophageal reflux disease 2. Status post Manuel 3. Small bowel perforation PLAN: 1. He has completed 2 week course of Manuel diet and may advance to grounded diet. 2. Continue antibiotics Objective - Vital Signs Vital signs: Vital Signs Temp 98.5 F 03/02/19 08:00 Pulse 96 03/02/19 08:00 Resp 18 03/02/19 08:00 BP 158/76 03/02/19 08:00 Pulse Ox 95 03/02/19 08:00 Intake & Output 03/01/19 03/02/19 03/02/19 18:59 06:59 18:59 Intake Total 413 700 120 Output Total 0207 297 1887 Balance -218 -935 -0529 Weight 77 kg 77 kg Intake: IV 313 200 20 Anidulafungin 100 mg In 168 Sodium Chloride 0.9% 100 ml @ 84 mls/hr IVPB DAILY [facility] Rx#:[id number] Piperacillin-Tazobactam 3 25 .375 gm In Sodium Chloride 0.9% 100 ml @ 25 mls/hr IVPB Q8HR [facility] Rx# :[id number] Sodium Chloride 0.9% 1, 120 200 20 000 ml @ 20 mls/hr IV . Q24H [facility] Rx#:[id number] Intake, IV Titration 100 100 Amount Piperacillin-Tazobactam 3 100 100 .375 gm In Sodium Chloride 0.9% 100 ml @ 25 mls/hr IVPB Q8H [facility] Rx#: [id number] Oral 500 Output: Urine 3106 762 4779 Other: Voiding Method Indwelling Catheter Indwelling Catheter Indwelling Catheter # Voids 175 # Bowel Movements 2 - Labs CBC & Chem 7: 03/02/19 04:17 03/02/19 04:17 Labs: Abnormal Lab Results - Last 24 Hours (Table) 03/01/19 03/01/19 03/02/19 Range/Units 17:03 20:23 00:50 WBC (3.8-10.6) k/uL RBC (4.30-5.90) m/uL Hgb (13.0-17.5) gm/dL Hct (39.0-53.0) % Plt Count (150-450) k/uL Neutrophils # (1.3-7.7) k/uL Lymphocytes # (1.0-4.8) k/uL BUN (9-20) mg/dL Glucose (74-99) mg/dL POC Glucose (mg/dL) 119 H 116 H 134 H (75-99) mg/dL Calcium (8.4-10.2) mg/dL Phosphorus (2.5-4.5) mg/dL 03/02/19 03/02/19 03/02/19 Range/Units 02:03 04:17 04:17 WBC 12.6 H (3.8-10.6) k/uL RBC 3.15 L (4.30-5.90) m/uL Hgb 10.1 L (13.0-17.5) gm/dL Hct 29.8 L (39.0-53.0) % Plt Count 471 H (150-450) k/uL Neutrophils # 11.2 H (1.3-7.7) k/uL Lymphocytes # 0.7 L (1.0-4.8) k/uL BUN 26 H (9-20) mg/dL Glucose 137 H (74-99) mg/dL POC Glucose (mg/dL) 122 H (75-99) mg/dL Calcium 7.7 L (8.4-10.2) mg/dL Phosphorus 4.6 H (2.5-4.5) mg/dL 03/02/19 03/02/19 Range/Units 06:58 11:40 WBC (3.8-10.6) k/uL RBC (4.30-5.90) m/uL Hgb (13.0-17.5) gm/dL Hct (39.0-53.0) % Plt Count (150-450) k/uL Neutrophils # (1.3-7.7) k/uL Lymphocytes # (1.0-4.8) k/uL BUN (9-20) mg/dL Glucose (74-99) mg/dL POC Glucose (mg/dL) 137 H 215 H (75-99) mg/dL Calcium (8.4-10.2) mg/dL Phosphorus (2.5-4.5) mg/dL Assessment and Plan (1) Hiatal hernia with gastroesophageal reflux Current Visit: Yes Status: Acute Code(s): K21.9 - GASTRO-ESOPHAGEAL REFLUX DISEASE WITHOUT ESOPHAGITIS; K44.9 - DIAPHRAGMATIC HERNIA WITHOUT OBSTRUCTION OR GANGRENE SNOMED Code(s): 028340474 (2) Diabetes type 2, uncontrolled Current Visit: Yes Status: Acute Code(s): E11.65 - TYPE 2 DIABETES MELLITUS WITH HYPERGLYCEMIA SNOMED Code(s): 019201409 (3) Urinary retention with incomplete bladder emptying Current Visit: Yes Status: Acute Code(s): R33.9 - RETENTION OF URINE, UNSPECIFIED SNOMED Code(s): 448676501 (4) Postoperative pain Current Visit: Yes Status: Acute Code(s): G89.18 - OTHER ACUTE POSTPROCEDURAL PAIN SNOMED Code(s): 427020010 (5) Small bowel perforation Current Visit: Yes Status: Acute Code(s): K63.1 - PERFORATION OF INTESTINE (NONTRAUMATIC) SNOMED Code(s): 261161150 (6) Leukocytosis Current Visit: Yes Status: Acute Code(s): D72.829 - ELEVATED WHITE BLOOD CELL COUNT, UNSPECIFIED SNOMED Code(s): 982185504
[2019-03-02 17:01] LABS: Glucose,Whole Blood 144 mg/dL (75-99)
[2019-03-02 21:26] LABS: Glucose,Whole Blood 176 mg/dL (75-99)
[2019-03-02] MEDS: QUEtiapine 50 MG TAB PO SCH (21:37)
[2019-03-02] MEDS: 1: MVI, ADULT NO.4 WITH VIT K 10 ML, TRACE (CONC-1ML/DOSE) 1 ML, POTASSIUM CHLORIDE 40 M IV SCH ×4 (21:45)
[2019-03-03 02:30] LABS: Glucose,Whole Blood 161 mg/dL (75-99)
[2019-03-03] MEDS: PIPERACILLIN-TAZOBACTAM 3.375 GM in SODIUM CHLORIDE 0.9% 100 ML IVPB SCH ×3 (04:22→20:25)
[2019-03-03] MEDS: METOCLOPRAMIDE 5 MG/ML 2 ML VIAL IVP SCH (05:30)
[2019-03-03 07:08] LABS: Calcium 7.8 mg/dL (8.4-10.2); Magnesium 2.2 mg/dL (1.6-2.3); Phosphorus 4.1 mg/dL (2.5-4.5); Potassium 4.3 mmol/L (3.5-5.1)
[2019-03-03 07:20] LABS: Basophils # (A) 0.1 k/uL (0-0.2); Basophils % (A) 0 %; Eosinophils # (A) 0.1 k/uL (0-0.7); Eosinophils % (A) 1 %; HCT 31.5 % (39.0-53.0); HGB 10.1 gm/dL (13.0-17.5); Hypochromasia Marked; Lymphocytes # (A) 0.8 k/uL (1.0-4.8); Lymphocytes % (A) 6 %; MCH 31.6 pg (25.0-35.0); MCHC 32.2 g/dL (31.0-37.0); Mean Platelet Volume 6.2; Monocytes # (A) 0.6 k/uL (0-1.0); Monocytes % (A) 4 %; Neutrophils # (A) 12.2 k/uL (1.3-7.7); Neutrophils % (A) 88 %; Platelet Count 588 k/uL (150-450); RBC 3.21 m/uL (4.30-5.90); RDW 12.5 % (11.5-15.5); WBC 13.9 k/uL (3.8-10.6)
--- NOTE | 2019-03-03 07:55 | PN ---
PROGRESS NOTE DATE OF SERVICE: 03/02/2019 REASON FOR FOLLOWUP: Secondary to peritonitis. INTERVAL HISTORY: The patient is currently afebrile. The patient has been breathing comfortably. The patient denies having any chest pain or any cough. No worsening abdominal pain. No nausea, no vomiting or diarrhea. PHYSICAL EXAMINATION: Blood pressure is 152/76 with a pulse of 96, temperature 98.5. He is 94% on room air. General description is an elderly male, lying in bed in no distress. RESPIRATORY SYSTEM: Unlabored breathing with decreased breath sounds in the base, no wheeze. HEART: S1, S2. Regular rate and rhythm. ABDOMEN: Soft, no tenderness. LABS: White count 12.6, BUN of 26, creatinine 1.11. DIAGNOSTIC IMPRESSION AND PLAN: Patient with secondary peritonitis from a perforated small wound status post repair. The patient's white count almost normalized. Patient is currently covered with Zosyn and Eraxis to continue. Recommend to discontinue his right IJ to decrease risk of line sepsis and monitor clinical course closely. MMODL / IJN: [id number] /
[2019-03-03 08:54] LABS: Glucose,Whole Blood 273 mg/dL (75-99)
[2019-03-03] MEDS: ACETAMINOPHEN TAB 325 MG TAB PO SCH ×2 (09:11→20:26)
[2019-03-03] MEDS: INSULIN ASPART (NovoLOG) 100 UNIT/ML VIAL SQ SCH ×4 (09:11→20:36)
[2019-03-03] MEDS: PANTOPRAZOLE 40 MG TABLET PO SCH (09:12)
[2019-03-03] MEDS: APIXABAN 5 MG TAB PO SCH ×2 (09:12→20:26)
[2019-03-03] MEDS: TAMSULOSIN 0.4 MG CAP.ER.24H PO SCH (09:12)
[2019-03-03] MEDS: METOPROLOL TARTRATE 25 MG TAB PO SCH ×2 (09:12→20:26)
[2019-03-03] MEDS: SIMETHICONE 40 MG/0.6 ML DROPS 2,000 MG/30 ML BOTTLE PO SCH ×4 (09:12→20:27)
[2019-03-03] MEDS: FUROSEMIDE 20 MG TAB PO SCH ×2 (09:12→17:00)
[2019-03-03] MEDS: ANIDULAFUNGIN 100 MG in SODIUM CHLORIDE 0.9% 100 ML IVPB SCH (09:12)
--- NOTE | 2019-03-03 10:53 | P.PN ---
Subjective Progress Note Date: 03/03/19 CHIEF COMPLAINT: GERD HISTORY OF PRESENT ILLNESS: 78-year-old male who is status post laparoscopic Manuel fundoplication performed on 02/14/2019. Patient is also s/p exploratory laparotomy, washout of abdomen, and enterorrhaphy due to small bowel perforation on 02/20/19. Patient examined this morning at the bedside. He denies abdominal pain. Tolerating diet. Passing flatus and having bowel movements. Denies nausea or vomiting. WBC 13.9. PHYSICAL EXAM: VITAL SIGNS: Reviewed. GENERAL: Well-developed in no acute distress. HEENT: NG to LIS. No sclera icterus. Extraocular movements grossly intact. Moist buccal mucosa. Head is atraumatic, normocephalic. ABDOMEN: Soft. Nontender with palpation. Optifoam dressing noted to midline incision. NEUROLOGIC: Awake and alert. Oriented x 3. Cranial nerves II through XII grossly intact. ASSESSMENT: 1. GERD, S/P laparoscopic Manuel fundoplication 2. Acute gastric distention 3. Small bowel obstruction secondary to ileus, an unexpected outcome of surgery 4. Urinary retention, an unexpected outcome of surgery 5. S/p exploratory laparotomy, washout of abdomen, and enterorrhaphy due to small bowel perforation on 02/20/19, etiology unclear of perforation 6. Paroxysmal atrial fibrillation 7. Acute hypoxic respiratory failure requiring supplemental oxygen secondary to abdominal distention, fluid volume overload, and pleural effusions 8. Postoperative delrium, an unexpected by potential outcome of surgery and hospitalization 9. Fluid overload with pleural effusions/acute exacerbation of diastolic heart failure EF 65-70% PLAN: -Continue current diet -Change Reglan to PRN as patient is having multiple loose stools -Activity as tolerated. PT/OT -Patient will require WIN at discharge. Patients family apparently looking at facilities today. Case management and social work following. Possible discharge within the next 24 hours pending final DC arrangements Nurse practitioner note has been reviewed by physician. Signing provider agrees with the documented findings, assessment, and plan of care. Objective - Vital Signs Vital signs: Vital Signs Temp 97.6 F 03/03/19 07:00 Pulse 101 H 03/03/19 07:00 Resp 16 03/03/19 07:00 BP 151/79 03/03/19 01:25 Pulse Ox 94 L 03/03/19 07:00 Intake & Output 03/02/19 03/03/19 03/03/19 18:59 06:59 18:59 Intake Total 120 200 Output Total 1700 400 Balance -1580 -200 Weight 77 kg Intake: IV 20 Sodium Chloride 0.9% 1, 20 000 ml @ 20 mls/hr IV . Q24H [facility] Rx#:[id number] Intake, IV Titration 100 200 Amount Piperacillin-Tazobactam 3 100 200 .375 gm In Sodium Chloride 0.9% 100 ml @ 25 mls/hr IVPB Q8H [facility] Rx#: [id number] Output: Urine 1700 400 Other: Voiding Method Indwelling Catheter Urinal # Voids 1 # Bowel Movements 2 - Labs CBC & Chem 7: 03/03/19 06:19 03/03/19 06:19 Labs: Abnormal Lab Results - Last 24 Hours (Table) 03/02/19 03/02/19 03/02/19 Range/Units 11:40 16:51 21:08 WBC (3.8-10.6) k/uL RBC (4.30-5.90) m/uL Hgb (13.0-17.5) gm/dL Hct (39.0-53.0) % Plt Count (150-450) k/uL Neutrophils # (1.3-7.7) k/uL Lymphocytes # (1.0-4.8) k/uL BUN (9-20) mg/dL Glucose (74-99) mg/dL POC Glucose (mg/dL) 215 H 144 H 176 H (75-99) mg/dL Calcium (8.4-10.2) mg/dL 03/03/19 03/03/19 03/03/19 Range/Units 02:19 06:19 06:19 WBC 13.9 H (3.8-10.6) k/uL RBC 3.21 L (4.30-5.90) m/uL Hgb 10.1 L (13.0-17.5) gm/dL Hct 31.5 L (39.0-53.0) % Plt Count 588 H (150-450) k/uL Neutrophils # 12.2 H (1.3-7.7) k/uL Lymphocytes # 0.8 L (1.0-4.8) k/uL BUN 24 H (9-20) mg/dL Glucose 162 H (74-99) mg/dL POC Glucose (mg/dL) 161 H (75-99) mg/dL Calcium 7.8 L (8.4-10.2) mg/dL 03/03/19 Range/Units 08:41 WBC (3.8-10.6) k/uL RBC (4.30-5.90) m/uL Hgb (13.0-17.5) gm/dL Hct (39.0-53.0) % Plt Count (150-450) k/uL Neutrophils # (1.3-7.7) k/uL Lymphocytes # (1.0-4.8) k/uL BUN (9-20) mg/dL Glucose (74-99) mg/dL POC Glucose (mg/dL) 273 H (75-99) mg/dL Calcium (8.4-10.2) mg/dL
[2019-03-03 11:56] LABS: Glucose,Whole Blood 177 mg/dL (75-99)
--- NOTE | 2019-03-03 12:37 | P.PN ---
Subjective Progress Note Date: 03/03/19 Principal diagnosis: Status post laparoscopic Manuel fundoplication, postoperative small bowel obstruction/ileus, and small bowel perforation, status post laparotomy and repair On 02/26/2019 the patient is postop day #12 following Manuel fundoplication. The patient is also postop day #6 following a repair of a small bowel perforation. He is still in the intensive care unit. The patient remains nothing by mouth. He is receiving PPN for nutritional support. He is producing approximately 1200 mL of gastric output over the past 24 hours. This output has dropped considerably since yesterday. The patient is diuresing with IV Lasix. He is currently a negative fluid balance. Lower some edema is improving. Penile and scrotal edema is also improving. Abdomen is less tense and the surgical wound site is dry clean and intact. No bowel movement with activity at this point in time. No chest pain. No cough or sputum production. Abdominal x-ray shows nonspecific bowel pattern. Chest x-ray shows bilateral pleural effusions without any interval worsening. The patient is currently on oxygen on 2 L of oxygen by nasal cannula and pulse ox is around 95%. Afebrile. Hemodynamically stable. Still covered with the same antibiotic which includes Eraxis and IV Zosyn. No other significant issues over the past 24 hours. Mental status is stable. Cardiac rhythm is stable and in sinus rhythm. He remains on IV heparin. On 02/27/2019 patient seen in follow-up in intensive care unit, he is awake and alert, oriented 3, no signs of delirium. NG tube output is decreasing in amount, down to 850 ML over last 24 hours, no complaints of shortness of breath, patient is just on 2 L of oxygen is pulse ox is 97%, remains on IV diuretics, he is diuresing, and patient has produced 3700 mL of urine over last 24 hours, abdominal distention has improved, abdomen is soft, she has passed multiple bowel movements. Patient remains on ice chips only at this time. He has ambulated in the hallway, apparently tolerated it very well. Remains in sinus mechanism with a rate of 96 lung sounds are clear, diminished at the bases, follow-up chest x-ray today shows bibasilar increased density on the basis of bilateral pleural effusions. Labs have been reviewed, showing white blood cell count of 14.3, she is to down trend, with a hemoglobin of 11.3, electrolytes are within normal limits, BUN of 26 and creatinine 0.95. Urine and blood culture showed no growth, patient remains on Eraxis and Zosyn for antibiotic coverage, remains on PPN and lipid infusions. Heparin drip for anticoagulation. On 03/03/2019 patient seen in follow-up on medical surgical floor. He sitting up in the chair, in no acute distress, currently on room air, with a pulse ox of 94%, no fever or chills, no complaints of worsening dyspnea, his incentive spirometry effort remains poor, only pulling about 500 mL on the today, but no significant cough or congestion, he is tolerating regular diet, no nausea or vomiting, maintenance IV fluids 0.9 normal saline at a rate of 25 ML per hour, no other drips, abdomen is distended, and tight, the patient denies any pain, mid abdominal incision is covered with a surgical dressing. Bowel sounds are present, and patient has been passing bowel movements. Today's labs have been reviewed, showing white blood cell count of 13.9, hemoglobin of 10.1, el ectrolytes are within normal limits, BUN is 24 creatinine 0.9. Patient's IV Lasix has been switched to oral Lasix 20 mg twice daily, and patient is maintaining negative fluid balance, still has some lower extremity edema and lung sounds are diminished with some limited crackles at the bases. No acute issues overnight, patient has been up to the chair, has not walked very much yet, we'll consult physical therapy. Antibiotic coverage with Eraxis and Zosyn, urine and blood cultures are negative Objective - Vital Signs Vital signs: Vital Signs Temp 97.6 F 03/03/19 07:00 Pulse 101 H 03/03/19 07:00 Resp 16 03/03/19 07:00 BP 151/79 03/03/19 01:25 Pulse Ox 94 L 03/03/19 07:00 Intake & Output 03/02/19 03/03/19 03/03/19 18:59 06:59 18:59 Intake Total 120 200 Output Total 1700 400 Balance -1580 -200 Weight 77 kg Intake: IV 20 Sodium Chloride 0.9% 1, 20 000 ml @ 20 mls/hr IV . Q24H [facility] Rx#:[id number] Intake, IV Titration 100 200 Amount Piperacillin-Tazobactam 3 100 200 .375 gm In Sodium Chloride 0.9% 100 ml @ 25 mls/hr IVPB Q8H [facility] Rx#: [id number] Output: Urine 1700 400 Other: Voiding Method Indwelling Catheter Urinal Urinal # Voids 1 # Bowel Movements 2 - Exam GENERAL EXAM: Alert, very pleasant, 70-year-old white male, on room air with a pulse ox of 94% comfortable in no apparent distress. HEAD: Normocephalic/atraumatic. EYES: Normal reaction of pupils, equal size. Conjunctiva pink, sclera white. NOSE: Clear with pink turbinates. THROAT: No erythema or exudates. NECK: No masses, no JVD, no thyroid enlargement, no adenopathy. CHEST: No chest wall deformity. Symmetrical expansion. LUNGS: Equal air entry with diminished breath sounds at the bases, with a few scattered crackles CVS: Regular rate and rhythm, normal S1 and S2, no gallops, no murmurs, no rubs ABDOMEN: Soft, nontender. No hepatosplenomegaly, normal bowel sounds, no guarding or rigidity. Midabdominal incision is covered with a surgical dressing, abdomen is somewhat tense, but patient reports passing bowel movements EXTREMITIES: No clubbing, no edema, no cyanosis, 2+ pulses and upper and lower extremities. MUSCULOSKELETAL: Muscle strength and tone normal. SPINE: No scoliosis or deformity SKIN: No rashes CENTRAL NERVOUS SYSTEM: Alert and oriented -3. No focal deficits, tone is normal in all 4 extremities. PSYCHIATRIC: Alert and oriented -3. Appropriate affect. Intact judgment and insight. - Labs CBC & Chem 7: 03/03/19 06:19 03/03/19 06:19 Labs: Abnormal Lab Results - Last 24 Hours (Table) 03/02/19 03/02/19 03/03/19 Range/Units 16:51 21:08 02:19 WBC (3.8-10.6) k/uL RBC (4.30-5.90) m/uL Hgb (13.0-17.5) gm/dL Hct (39.0-53.0) % Plt Count (150-450) k/uL Neutrophils # (1.3-7.7) k/uL Lymphocytes # (1.0-4.8) k/uL BUN (9-20) mg/dL Glucose (74-99) mg/dL POC Glucose (mg/dL) 144 H 176 H 161 H (75-99) mg/dL Calcium (8.4-10.2) mg/dL 03/03/19 03/03/19 03/03/19 Range/Units 06:19 06:19 08:41 WBC 13.9 H (3.8-10.6) k/uL RBC 3.21 L (4.30-5.90) m/uL Hgb 10.1 L (13.0-17.5) gm/dL Hct 31.5 L (39.0-53.0) % Plt Count 588 H (150-450) k/uL Neutrophils # 12.2 H (1.3-7.7) k/uL Lymphocytes # 0.8 L (1.0-4.8) k/uL BUN 24 H (9-20) mg/dL Glucose 162 H (74-99) mg/dL POC Glucose (mg/dL) 273 H (75-99) mg/dL Calcium 7.8 L (8.4-10.2) mg/dL 03/03/19 Range/Units 11:45 WBC (3.8-10.6) k/uL RBC (4.30-5.90) m/uL Hgb (13.0-17.5) gm/dL Hct (39.0-53.0) % Plt Count (150-450) k/uL Neutrophils # (1.3-7.7) k/uL Lymphocytes # (1.0-4.8) k/uL BUN (9-20) mg/dL Glucose (74-99) mg/dL POC Glucose (mg/dL) 177 H (75-99) mg/dL Calcium (8.4-10.2) mg/dL Assessment and Plan Plan: Assessment: 1 status post laparoscopic Manuel fundoplication. The patient is postop day #16 2 post operative small bowel obstruction/ileus, expected outcome of surgery. Patient is passing bowel movements, and tolerating soft diet 3 small bowel perforation, post-extremity laparotomy and repair of a perforated small bowel with 3 mm tear. The patient is postop day #10 4 lower extremity edema, patient remains on diuretics and maintaining negative fluid balance 5 paroxysmal atrial fibrillation current rhythm is sinus, patient is on Eliquis 6 delirium, recovered 7 bilateral pleural effusion with extensive anasarca and volume overload and currently the patient IV Lasix, and the third spacing is improving and the patient is lower extremity edema is also improving. 8 leukocytosis, relatively stable compared to yesterday 9 chronic normocytic anemia Plan: Continue with oral Lasix, patient is maintaining negative fluid balance, encou rage deep breathing and coughing,encourage incentive spirometry effort, consult physical therapy for mobilization. Events per ID service recommendation, patient has been afebrile, he is tolerating soft diet, he is passing bowel movements. No nausea, or vomiting. We will obtain ID service input in terms of the length of antibiotic treatment, and need for intravenous access in case IV antibiotics are still needed. Discharge planning is in progress, social work is working on arranging subacute rehabilitation placement after discharge possibly in the next 24 hours I performed a history & physical examination of the patient and discussed their management with my nurse practitioner, Kimberly Lord. I reviewed the nurse practitioner's note and agree with the documented findings and plan of care. Lung sounds are positive for clear breath sounds with diminished breath sounds at the bases. The findings and the impression was discussed with the patient. I attest to the documentation by the nurse practitioner. Time with Patient: Less than 30
--- NOTE | 2019-03-03 13:08 | P.PN ---
Subjective Hospital course: This is a pleasant 78 years old male with past medical history of diabetes mellitus, GERD, hypertension, arthritis. He was admitted for severe gastroesophageal reflux disease, he is status post Manuel fundoplication . Also his hospital course was complicated with bowel obstruction and he underwent exploratory laparotomy, patient has peritonitis secondary to bowel perforation. And patient is been seen by cardiology for A. fib with RVR, new onset. Patient today was still in the ICU, he sitting in the chair, there was a started on liquid diet and he is tolerating that well. Patient looks comfortable and not in distress. He is been followed by several consultants exiting the primary surgical team as well as the pulmonary/critical care and infectious disease team. Cardiology also on board. Patient looks like improving gradually. He is currently on Zosyn and Eraxis, intravenous Lasix 20 mg twice daily and heparin drip with the plan to switch to oral anticoagulation by cardiology team. Vitas looks stable although patient is tachypneic at times. Leukocytosis is improving down 13.5 K, hemoglobin is 10.5. Sodium 136 and creatinine 0.9, sugar is controlled. 03/01/2019 Patient remains in the ICU, clinically looks the same as yesterday, he is on a clear liquid diet and [place] of his meal, his abdominal pain is minimal and expected at the surgical site with no nausea vomiting and he has little of bowel movements on the loose side but no zulma diarrhea. TPN has been stopped and his sugar dropped so patient To the ICU for further monitoring. The media was stopped and patient At insulin sliding scale Chest x-ray: Bibasilar air disease possible pneumonia per Radiologist, however clinically the and goes more with atelectasis. Patient remains on Zosyn and eraxis as per infectious disease recommendation, therefore his bowel infection and peritonitis. Also he is on Eliquis 5 mg and Lasix IV 20 mg twice a day 03/02/2019 Patient today he is doing well, his abdominal pain is improving gradually, his sugar is controlled. He is hemodynamically stable. Patient is being transferred to the general medical floor today. Lateral views were looks stable with WBC is 12.6 K 03/03/2019 Patient is in the general medical floor, he is tolerating diet well, minimal abdominal pain, no nausea vomiting. However patient has loose bowel movements, although doesn't look like C. diff however we going to check for it to the patient has been on a prolonged antibiotic course. Peter catheter has been taken off, patient is able to be about 400 mL, check PVR. ID team are following the patient and for the duration of antibiotics Objective - Vital Signs Vital signs: Vital Signs Temp 97.6 F 03/03/19 07:00 Pulse 101 H 03/03/19 07:00 Resp 16 03/03/19 07:00 BP 151/79 03/03/19 01:25 Pulse Ox 94 L 03/03/19 07:00 Intake & Output 03/02/19 03/03/19 03/03/19 18:59 06:59 18:59 Intake Total 120 200 Output Total 1700 400 Balance -1580 -200 Weight 77 kg Intake: IV 20 Sodium Chloride 0.9% 1, 20 000 ml @ 20 mls/hr IV . Q24H RAJ Rx#:[id number] Intake, IV Titration 100 200 Amount Piperacillin-Tazobactam 3 100 200 .375 gm In Sodium Chloride 0.9% 100 ml @ 25 mls/hr IVPB Q8H RAJ Rx#: [id number] Output: Urine 1700 400 Other: Voiding Method Indwelling Catheter Urinal Urinal # Voids 1 # Bowel Movements 2 - Exam GENERAL: The patient is alert and oriented x3, not in any acute distress. Well developed, well nourished. HEENT: Pupils are round and equally reacting to light. EOMI. No scleral icterus. No conjunctival pallor. Normocephalic, atraumatic. No pharyngeal erythema. No thyromegaly. CARDIOVASCULAR: S1 and S2 present. No murmurs, rubs, or gallops. PULMONARY: Chest is clear to auscultation, no wheezing or crackles. -ABDOMEN: Soft, expected mild postoperative tenderness, nondistended, normoactive bowel sounds. Wound is clean and dressing is in place MUSCULOSKELETAL: No joint swelling or deformity. EXTREMITIES: No cyanosis, clubbing, or pedal edema. NEUROLOGICAL: Gross neurological examination did not reveal any focal deficits. SKIN: No rashes. no petechiae. - Labs CBC & Chem 7: 03/03/19 06:19 03/03/19 06:19 Labs: Abnormal Lab Results - Last 24 Hours (Table) 09/29/19 09/29/19 09/30/19 Range/Units 16:51 21:08 02:19 WBC (3.8-10.6) k/uL RBC (4.30-5.90) m/uL Hgb (13.0-17.5) gm/dL Hct (39.0-53.0) % Plt Count (150-450) k/uL Neutrophils # (1.3-7.7) k/uL Lymphocytes # (1.0-4.8) k/uL BUN (9-20) mg/dL Glucose (74-99) mg/dL POC Glucose (mg/dL) 144 H 176 H 161 H (75-99) mg/dL Calcium (8.4-10.2) mg/dL 03/03/19 03/03/19 03/03/19 Range/Units 06:19 06:19 08:41 WBC 13.9 H (3.8-10.6) k/uL RBC 3.21 L (4.30-5.90) m/uL Hgb 10.1 L (13.0-17.5) gm/dL Hct 31.5 L (39.0-53.0) % Plt Count 588 H (150-450) k/uL Neutrophils # 12.2 H (1.3-7.7) k/uL Lymphocytes # 0.8 L (1.0-4.8) k/uL BUN 24 H (9-20) mg/dL Glucose 162 H (74-99) mg/dL POC Glucose (mg/dL) 273 H (75-99) mg/dL Calcium 7.8 L (8.4-10.2) mg/dL 03/03/19 Range/Units 11:45 WBC (3.8-10.6) k/uL RBC (4.30-5.90) m/uL Hgb (13.0-17.5) gm/dL Hct (39.0-53.0) % Plt Count (150-450) k/uL Neutrophils # (1.3-7.7) k/uL Lymphocytes # (1.0-4.8) k/uL BUN (9-20) mg/dL Glucose (74-99) mg/dL POC Glucose (mg/dL) 177 H (75-99) mg/dL Calcium (8.4-10.2) mg/dL Assessment and Plan Assessment: - Status post Manuel fundoplication due to severe gastroesophageal reflux disea se. Continue with PPI - Peritonitis secondary to bowel perforation. Status post expiratory laparot baldomero. - Postoperative ileus with resultant bowel obstruction. Improvement - New onset atrial fibrillation with RVR. Currently on metoprolol and Eliquis. Cardiology is following. -Fluid overload, secondary to potential hydration. Improving on IV Lasix - Type 2 diabetes mellitus: Sliding scale insulin hold off metformin as mentioned above -Hypertension, improvement - DVT prophylaxis with Eliquis -GI prophylaxis: Protonix Prognosis is guarded
[2019-03-03] MEDS: SODIUM CHLORIDE 0.9% 1,000 ML IV SCH (16:50)
[2019-03-03 17:08] LABS: Glucose,Whole Blood 175 mg/dL (75-99)
[2019-03-03 18:38] LABS: Glucose,Whole Blood 173 mg/dL (75-99)
[2019-03-03] MEDS: QUEtiapine 50 MG TAB PO SCH (20:26)
[2019-03-03 20:40] LABS: Glucose,Whole Blood 198 mg/dL (75-99)
--- NOTE | 2019-03-03 23:55 | PN ---
PROGRESS NOTE DATE OF SERVICE: 03/03/2019 REASON FOR FOLLOWUP: Secondary peritonitis. INTERVAL HISTORY: The patient is currently afebrile. The patient has been breathing comfortably. Denies having any chest pain. No shortness of breath. Occasional cough. No nausea or vomiting. No abdominal pain and no diarrhea. PHYSICAL EXAMINATION: Blood pressure 136/74 with a pulse of 105, temperature 98.7. He is 94% on room air. General description is an elderly male lying in bed in no distress. RESPIRATORY SYSTEM: Unlabored breathing with decreased breath sounds at the base. No wheeze. HEART: S1, S2. Regular rate and rhythm. ABDOMEN: Soft. No tenderness. LABS: No new labs been obtained today. DIAGNOSTIC IMPRESSION AND PLAN: Patient with secondary peritonitis from a perforated small bowel, status post repair. Patient seems to have shown some clinical improvement. The patient is currently covered with Zosyn and Eraxis; to continue and hopefully transition to a short course of oral while monitoring his clinical course closely. MMODL / IJN: [id number] /
[2019-03-04 02:00] LABS: Glucose,Whole Blood 192 mg/dL (75-99)
[2019-03-04] MEDS: PIPERACILLIN-TAZOBACTAM 3.375 GM in SODIUM CHLORIDE 0.9% 100 ML IVPB SCH ×3 (03:38→21:19)
[2019-03-04 06:39] LABS: Calcium 7.9 mg/dL (8.4-10.2); Phosphorus 3.8 mg/dL (2.5-4.5); Potassium 3.6 mmol/L (3.5-5.1)
[2019-03-04 06:44] LABS: Basophils % (A) 0 %; Eosinophils # (A) 0.1 k/uL (0-0.7); Eosinophils % (A) 1 %; HCT 28.4 % (39.0-53.0); HGB 9.1 gm/dL (13.0-17.5); Hypochromasia Slight; Lymphocytes # (A) 0.7 k/uL (1.0-4.8); Lymphocytes % (A) 7 %; MCH 30.2 pg (25.0-35.0); MCHC 32.1 g/dL (31.0-37.0); MCV 94.2 fL (80.0-100.0); Monocytes # (A) 0.4 k/uL (0-1.0); Monocytes % (A) 4 %; Neutrophils # (A) 8.6 k/uL (1.3-7.7); Neutrophils % (A) 86 %; Platelet Count 536 k/uL (150-450); RBC 3.02 m/uL (4.30-5.90); RDW 13.1 % (11.5-15.5); WBC 9.9 k/uL (3.8-10.6)
[2019-03-04 07:13] LABS: Glucose,Whole Blood 171 mg/dL (75-99)
[2019-03-04] MEDS: ACETAMINOPHEN TAB 325 MG TAB PO SCH ×2 (07:29→21:19)
[2019-03-04] MEDS: PANTOPRAZOLE 40 MG TABLET PO SCH (07:30)
[2019-03-04] MEDS: FUROSEMIDE 20 MG TAB PO SCH ×2 (07:30→17:49)
[2019-03-04] MEDS: TAMSULOSIN 0.4 MG CAP.ER.24H PO SCH (07:30)
[2019-03-04] MEDS: APIXABAN 5 MG TAB PO SCH ×2 (07:30→21:20)
[2019-03-04] MEDS: METOPROLOL TARTRATE 25 MG TAB PO SCH ×2 (07:30→21:20)
[2019-03-04] MEDS: INSULIN ASPART (NovoLOG) 100 UNIT/ML VIAL SQ SCH ×4 (07:38→20:27)
[2019-03-04] MEDS: ANIDULAFUNGIN 100 MG in SODIUM CHLORIDE 0.9% 100 ML IVPB SCH (08:57)
[2019-03-04] MEDS: SIMETHICONE 40 MG/0.6 ML DROPS 2,000 MG/30 ML BOTTLE PO SCH ×5 (10:31→21:26)
--- NOTE | 2019-03-04 11:01 | P.PN ---
Subjective Hospital course: This is a pleasant 78 years old male with past medical history of diabetes mellitus, GERD, hypertension, arthritis. He was admitted for severe gastroesophageal reflux disease, he is status post Manuel fundoplication . Also his hospital course was complicated with bowel obstruction and he underwent exploratory laparotomy, patient has peritonitis secondary to bowel perforation. And patient is been seen by cardiology for A. fib with RVR, new onset. Patient today was still in the ICU, he sitting in the chair, there was a started on liquid diet and he is tolerating that well. Patient looks comfortable and not in distress. He is been followed by several consultants exiting the primary surgical team as well as the pulmonary/critical care and infectious disease team. Cardiology also on board. Patient looks like improving gradually. He is currently on Zosyn and Eraxis, intravenous Lasix 20 mg twice daily and heparin drip with the plan to switch to oral anticoagulation by cardiology team. Vitas looks stable although patient is tachypneic at times. Leukocytosis is improving down 13.5 K, hemoglobin is 10.5. Sodium 136 and creatinine 0.9, sugar is controlled. 03/01/2019 Patient remains in the ICU, clinically looks the same as yesterday, he is on a clear liquid diet and [place] of his meal, his abdominal pain is minimal and expected at the surgical site with no nausea vomiting and he has little of bowel movements on the loose side but no zulma diarrhea. TPN has been stopped and his sugar dropped so patient To the ICU for further monitoring. The media was stopped and patient At insulin sliding scale Chest x-ray: Bibasilar air disease possible pneumonia per Radiologist, however clinically the and goes more with atelectasis. Patient remains on Zosyn and eraxis as per infectious disease recommendation, therefore his bowel infection and peritonitis. Also he is on Eliquis 5 mg and Lasix IV 20 mg twice a day 03/02/2019 Patient today he is doing well, his abdominal pain is improving gradually, his sugar is controlled. He is hemodynamically stable. Patient is being transferred to the general medical floor today. Lateral views were looks stable with WBC is 12.6 K 03/03/2019 Patient is in the general medical floor, he is tolerating diet well, minimal abdominal pain, no nausea vomiting. However patient has loose bowel movements, although doesn't look like C. diff however we going to check for it to the patient has been on a prolonged antibiotic course. Peter catheter has been taken off, patient is able to be about 400 mL, check PVR. ID team are following the patient and for the duration of antibiotics 03/04/2019 Patient is doing well, he is starting diet with minimal or no abdominal pain, with expected some tenderness at surgical site. No nausea vomiting. His loose bowel movement has stopped since yesterday and he didn't have actually any bowel movement since then. He is passing gases. He denies chest pain or dyspnea. His been febrile since yesterday. Heart rate 103, blood pressure 154/68. His saturating 94% on room air. WBC is back to normal at 9.9, hemoglobin at 9.1, creatinine is normal at 0.9, sugar is controlled, patient remains on Zosyn and Eraxis with discharge antibiotics as per ID team. He is on Lasix 20 mg twice daily, he is on Eliquis 5 mg and metoprolol 25 mg. Patient is expected to be discharged to rehab soon Objective - Vital Signs Vital signs: Vital Signs Temp 98.6 F 03/04/19 07:22 Pulse 103 H 03/04/19 07:22 Resp 16 03/04/19 07:22 BP 154/68 03/04/19 07:22 Pulse Ox 94 L 03/04/19 07:22 Intake & Output 03/03/19 03/04/19 03/04/19 18:59 06:59 18:59 Intake Total 960 Balance 960 Intake: Oral 960 Other: Voiding Method Urinal Toilet Urinal # Voids 2 1 - Exam GENERAL: The patient is alert and oriented x3, not in any acute distress. Well developed, well nourished. HEENT: Pupils are round and equally reacting to light. EOMI. No scleral icterus. No conjunctival pallor. Normocephalic, atraumatic. No pharyngeal erythema. No thyromegaly. CARDIOVASCULAR: S1 and S2 present. No murmurs, rubs, or gallops. PULMONARY: Chest is clear to auscultation, no wheezing or crackles. -ABDOMEN: Soft, expected mild postoperative tenderness, nondistended, normoactive bowel sounds. Wound is clean and dressing is in place MUSCULOSKELETAL: No joint swelling or deformity. EXTREMITIES: No cyanosis, clubbing, or pedal edema. NEUROLOGICAL: Gross neurological examination did not reveal any focal deficits. SKIN: No rashes. no petechiae. - Labs CBC & Chem 7: 03/04/19 05:53 03/04/19 05:53 Labs: Abnormal Lab Results - Last 24 Hours (Table) 03/03/19 03/03/19 03/03/19 Range/Units 11:45 16:55 18:26 RBC (4.30-5.90) m/uL Hgb (13.0-17.5) gm/dL Hct (39.0-53.0) % Plt Count (150-450) k/uL Neutrophils # (1.3-7.7) k/uL Lymphocytes # (1.0-4.8) k/uL Glucose (74-99) mg/dL POC Glucose (mg/dL) 177 H 175 H 173 H (75-99) mg/dL Calcium (8.4-10.2) mg/dL 03/03/19 03/04/19 03/04/19 Range/Units 20:28 01:48 05:53 RBC (4.30-5.90) m/uL Hgb (13.0-17.5) gm/dL Hct (39.0-53.0) % Plt Count (150-450) k/uL Neutrophils # (1.3-7.7) k/uL Lymphocytes # (1.0-4.8) k/uL Glucose 171 H (74-99) mg/dL POC Glucose (mg/dL) 198 H 192 H (75-99) mg/dL Calcium 7.9 L (8.4-10.2) mg/dL 03/04/19 03/04/19 Range/Units 05:53 07:01 RBC 3.02 L (4.30-5.90) m/uL Hgb 9.1 L (13.0-17.5) gm/dL Hct 28.4 L (39.0-53.0) % Plt Count 536 H (150-450) k/uL Neutrophils # 8.6 H (1.3-7.7) k/uL Lymphocytes # 0.7 L (1.0-4.8) k/uL Glucose (74-99) mg/dL POC Glucose (mg/dL) 171 H (75-99) mg/dL Calcium (8.4-10.2) mg/dL Microbiology - Last 24 Hours (Table) 03/02/19 22:17 Blood Culture - Preliminary Blood No Growth after 24 hours Assessment and Plan Assessment: - Status post Manuel fundoplication due to severe gastroesophageal reflux disease. Continue with PPI - Peritonitis secondary to bowel perforation. Status post expiratory laparotomy. - Postoperative ileus with resultant bowel obstruction. Improvement - New onset atrial fibrillation with RVR. Currently on metoprolol and Eliquis. Cardiology is following. -Fluid overload, secondary to potential hydration. Improving on IV Lasix - Type 2 diabetes mellitus: Sliding scale insulin hold off metformin as mentioned above -Hypertension, improvement - DVT prophylaxis with Eliquis -GI prophylaxis: Protonix Prognosis is guarded
[2019-03-04 11:55] LABS: Glucose,Whole Blood 181 mg/dL (75-99)
--- NOTE | 2019-03-04 13:11 | P.PN ---
Subjective Progress Note Date: 03/04/19 CHIEF COMPLAINT: GERD HISTORY OF PRESENT ILLNESS: 78-year-old male who is status post laparoscopic Manuel fundoplication performed on 02/14/2019. Patient is also s/p exploratory laparotomy, washout of abdomen, and enterorrhaphy due to small bowel perforation on 02/20/19. Patient examined this morning at the bedside. He denies abdominal pain. Tolerating diet. Passing flatus and having bowel movements. Denies nausea or vomiting. WBC 9.9. Hemoglobin 9.1. PHYSICAL EXAM: VITAL SIGNS: Reviewed. GENERAL: Well-developed in no acute distress. HEENT: No sclera icterus. Extraocular movements grossly intact. Moist buccal mucosa. Head is atraumatic, normocephalic. ABDOMEN: Soft. Nontender with palpation. Dressing noted to midline incision NEUROLOGIC: Awake and alert. Oriented x 3. Cranial nerves II through XII grossly intact. ASSESSMENT: 1. GERD, S/P laparoscopic Manuel fundoplication 2. Acute gastric distention 3. Small bowel obstruction secondary to ileus, an unexpected outcome of surgery 4. Urinary retention, an unexpected outcome of surgery 5. S/p exploratory laparotomy, washout of abdomen, and enterorrhaphy due to small bowel perforation on 02/20/19, etiology unclear of perforation 6. Paroxysmal atrial fibrillation 7. Acute hypoxic respiratory failure requiring supplemental oxygen secondary to abdominal distention, fluid volume overload, and pleural effusions 8. Postoperative delrium, an unexpected by potential outcome of surgery and hospitalization 9. Fluid overload with pleural effusions/acute exacerbation of diastolic heart failure EF 65-70% PLAN: -Continue current diet -Activity as tolerated. PT/OT -Await DC antibiotic recommendations from Dr. Hall -Possible DC tomorrow to [facility] Nurse practitioner note has been reviewed by physician. Signing provider agrees with the documented findings, assessment, and plan of care. Objective - Vital Signs Vital signs: Vital Signs Temp 98.6 F 03/04/19 07:22 Pulse 103 H 03/04/19 07:22 Resp 16 03/04/19 07:22 BP 154/68 03/04/19 07:22 Pulse Ox 94 L 03/04/19 07:22 Intake & Output 03/03/19 03/04/19 03/04/19 18:59 06:59 18:59 Intake Total 960 240 Balance 960 240 Intake: Oral 960 240 Other: Voiding Method Urinal Toilet Urinal # Voids 2 1 - Labs CBC & Chem 7: 03/04/19 05:53 03/04/19 05:53 Labs: Abnormal Lab Results - Last 24 Hours (Table) 03/03/19 03/03/19 03/03/19 Range/Units 16:55 18:26 20:28 RBC (4.30-5.90) m/uL Hgb (13.0-17.5) gm/dL Hct (39.0-53.0) % Plt Count (150-450) k/uL Neutrophils # (1.3-7.7) k/uL Lymphocytes # (1.0-4.8) k/uL Glucose (74-99) mg/dL POC Glucose (mg/dL) 175 H 173 H 198 H (75-99) mg/dL Calcium (8.4-10.2) mg/dL 03/04/19 03/04/19 03/04/19 Range/Units 01:48 05:53 05:53 RBC 3.02 L (4.30-5.90) m/uL Hgb 9.1 L (13.0-17.5) gm/dL Hct 28.4 L (39.0-53.0) % Plt Count 536 H (150-450) k/uL Neutrophils # 8.6 H (1.3-7.7) k/uL Lymphocytes # 0.7 L (1.0-4.8) k/uL Glucose 171 H (74-99) mg/dL POC Glucose (mg/dL) 192 H (75-99) mg/dL Calcium 7.9 L (8.4-10.2) mg/dL 03/04/19 03/04/19 Range/Units 07:01 11:43 RBC (4.30-5.90) m/uL Hgb (13.0-17.5) gm/dL Hct (39.0-53.0) % Plt Count (150-450) k/uL Neutrophils # (1.3-7.7) k/uL Lymphocytes # (1.0-4.8) k/uL Glucose (74-99) mg/dL POC Glucose (mg/dL) 171 H 181 H (75-99) mg/dL Calcium (8.4-10.2) mg/dL Microbiology - Last 24 Hours (Table) 03/02/19 22:17 Blood Culture - Preliminary Blood No Growth after 24 hours
[2019-03-04] MEDS: SODIUM CHLORIDE 0.9% 1,000 ML IV SCH (14:08)
[2019-03-04 16:35] LABS: Glucose,Whole Blood 200 mg/dL (75-99)
[2019-03-04 20:15] LABS: Glucose,Whole Blood 237 mg/dL (75-99)
[2019-03-04] MEDS: QUEtiapine 50 MG TAB PO SCH (21:20)
--- NOTE | 2019-03-04 23:08 | PN ---
PROGRESS NOTE DATE OF SERVICE: 03/04/2019. REASON FOR FOLLOW UP: Secondary peritonitis. INTERVAL HISTORY: The patient is currently afebrile. Patient has been breathing comfortably. The patient denies having any chest pain, shortness of breath or cough. No worsening abdominal pain, no nausea, vomiting. PHYSICAL EXAMINATION: Blood pressure 176/74 with a pulse of 103. Temperature of 99.1. He is 95% on room air. General description is an elderly male up in the chair in no distress. Respiratory system: Unlabored breathing, decreased breath sounds in the base. No wheeze. Heart S1, S2. Regular rate and rhythm. Abdomen soft. No tenderness. LABS: Hemoglobin 9.1, white count 9.9. Blood culture has been negative. DIAGNOSTIC IMPRESSION AND PLAN: Patient with secondary peritonitis from perforated small bowel, status post operative repair. The patient's underlying condition has been adequately treated. The patient is currently afebrile. His white count has normalized. Currently on the Eraxis and Zosyn with almost 10 days of antibiotics should be more than enough and we will possibly discontinue them on discharge if the patient continues to improve and continue supportive care. MMODL / IJN: [id number] /
[2019-03-05 01:55] LABS: Glucose,Whole Blood 161 mg/dL (75-99)
[2019-03-05] MEDS: PIPERACILLIN-TAZOBACTAM 3.375 GM in SODIUM CHLORIDE 0.9% 100 ML IVPB SCH (03:34)
[2019-03-05 07:14] LABS: Glucose,Whole Blood 161 mg/dL (75-99)
[2019-03-05 07:35] LABS: Basophils % (A) 0 %; Eosinophils # (A) 0.1 k/uL (0-0.7); Eosinophils % (A) 2 %; HCT 28.9 % (39.0-53.0); HGB 9.5 gm/dL (13.0-17.5); Hypochromasia Slight; Lymphocytes # (A) 0.7 k/uL (1.0-4.8); Lymphocytes % (A) 7 %; MCH 30.7 pg (25.0-35.0); MCV 92.9 fL (80.0-100.0); Mean Platelet Volume 5.9; Monocytes # (A) 0.3 k/uL (0-1.0); Monocytes % (A) 3 %; Neutrophils % (A) 86 %; Platelet Count 662 k/uL (150-450); RBC 3.11 m/uL (4.30-5.90); RDW 12.7 % (11.5-15.5); WBC 9.3 k/uL (3.8-10.6)
[2019-03-05] MEDS: INSULIN ASPART (NovoLOG) 100 UNIT/ML VIAL SQ SCH ×2 (08:00→13:15)
--- NOTE | 2019-03-05 08:46 | P.PN ---
Subjective Hospital course: This is a pleasant 78 years old male with past medical history of diabetes mellitus, GERD, hypertension, arthritis. He was admitted for severe gastroesophageal reflux disease, he is status post Manuel fundoplication . Also his hospital course was complicated with bowel obstruction and he underwent exploratory laparotomy, patient has peritonitis secondary to bowel perforation. And patient is been seen by cardiology for A. fib with RVR, new onset. Patient today was still in the ICU, he sitting in the chair, there was a started on liquid diet and he is tolerating that well. Patient looks comfortable and not in distress. He is been followed by several consultants exiting the primary surgical team as well as the pulmonary/critical care and infectious disease team. Cardiology also on board. Patient looks like improving gradually. He is currently on Zosyn and Eraxis, intravenous Lasix 20 mg twice daily and heparin drip with the plan to switch to oral anticoagulation by cardiology team. Vitas looks stable although patient is tachypneic at times. Leukocytosis is improving down 13.5 K, hemoglobin is 10.5. Sodium 136 and creatinine 0.9, sugar is controlled. 03/01/2019 Patient remains in the ICU, clinically looks the same as yesterday, he is on a clear liquid diet and [place] of his meal, his abdominal pain is minimal and expected at the surgical site with no nausea vomiting and he has little of bowel movements on the loose side but no zulma diarrhea. TPN has been stopped and his sugar dropped so patient To the ICU for further monitoring. The media was stopped and patient At insulin sliding scale Chest x-ray: Bibasilar air disease possible pneumonia per Radiologist, however clinically the and goes more with atelectasis. Patient remains on Zosyn and eraxis as per infectious disease recommendation, therefore his bowel infection and peritonitis. Also he is on Eliquis 5 mg and Lasix IV 20 mg twice a day 03/02/2019 Patient today he is doing well, his abdominal pain is improving gradually, his sugar is controlled. He is hemodynamically stable. Patient is being transferred to the general medical floor today. Lateral views were looks stable with WBC is 12.6 K 03/03/2019 Patient is in the general medical floor, he is tolerating diet well, minimal abdominal pain, no nausea vomiting. However patient has loose bowel movements, although doesn't look like C. diff however we going to check for it to the patient has been on a prolonged antibiotic course. Peter catheter has been taken off, patient is able to be about 400 mL, check PVR. ID team are following the patient and for the duration of antibiotics 03/04/2019 Patient is doing well, he is starting diet with minimal or no abdominal pain, with expected some tenderness at surgical site. No nausea vomiting. His loose bowel movement has stopped since yesterday and he didn't have actually any bowel movement since then. He is passing gases. He denies chest pain or dyspnea. His been febrile since yesterday. Heart rate 103, blood pressure 154/68. His saturating 94% on room air. WBC is back to normal at 9.9, hemoglobin at 9.1, creatinine is normal at 0.9, sugar is controlled, patient remains on Zosyn and Eraxis with discharge antibiotics as per ID team. He is on Lasix 20 mg twice daily, he is on Eliquis 5 mg and metoprolol 25 mg. Patient is expected to be discharged to rehab soon 03/05/2019 Patient clinically the same, his gradually improving. He is tolerating diet with minimal abdominal pain. Diarrhea has resolved with no bowel movement over the last couple days however he is passing out of gases. Chest pain or dyspnea. Vital signs stable and his saturating 93% on room air, with a breathing treatment at 16/m. WBC is back to normal and patient is afebrile for the last 2-3 days. PVRs checked and patient with no regurgitation. Infectious disease following the case and the recommended to stop antibiotics upon discharge. Patient might benefit from ECF for rehab upon discharge Objective - Vital Signs Vital signs: Vital Signs Temp 98.7 F 03/05/19 07:49 Pulse 98 03/05/19 07:49 Resp 16 03/05/19 07:49 BP 146/76 03/05/19 07:49 Pulse Ox 93 L 03/05/19 07:49 Intake & Output 03/04/19 03/05/19 03/05/19 18:59 06:59 18:59 Intake Total 940 10 Output Total 336 Balance 604 10 Weight 77 kg Intake: Intake, IV Titration 200 Amount Anidulafungin 100 mg In 100 Sodium Chloride 0.9% 100 ml @ 84 mls/hr IVPB DAILY [facility] Rx#:[id number] Piperacillin-Tazobactam 3 100 .375 gm In Sodium Chloride 0.9% 100 ml @ 25 mls/hr IVPB Q8H [facility] Rx#: [id number] Oral 240 10 Blood Product 500 Output: Urine 250 Post Void Residual 86 Other: # Voids 1 # Bowel Movements 1 - Exam GENERAL: The patient is alert and oriented x3, not in any acute distress. Well developed, well nourished. HEENT: Pupils are round and equally reacting to light. EOMI. No scleral icterus. No conjunctival pallor. Normocephalic, atraumatic. No pharyngeal erythema. No thyromegaly. CARDIOVASCULAR: S1 and S2 present. No murmurs, rubs, or gallops. PULMONARY: Chest is clear to auscultation, no wheezing or crackles. -ABDOMEN: Soft, expected mild postoperative tenderness, nondistended, normoactive bowel sounds. Wound is clean and dressing is in place MUSCULOSKELETAL: No joint swelling or deformity. EXTREMITIES: No cyanosis, clubbing, or pedal edema. NEUROLOGICAL: Gross neurological examination did not reveal any focal deficits. SKIN: No rashes. no petechiae. - Labs CBC & Chem 7: 03/05/19 07:10 03/04/19 05:53 Labs: Abnormal Lab Results - Last 24 Hours (Table) 03/04/19 03/04/19 03/04/19 Range/Units 11:43 16:33 20:03 RBC (4.30-5.90) m/uL Hgb (13.0-17.5) gm/dL Hct (39.0-53.0) % Plt Count (150-450) k/uL Neutrophils # (1.3-7.7) k/uL Lymphocytes # (1.0-4.8) k/uL POC Glucose (mg/dL) 181 H 200 H 237 H (75-99) mg/dL 03/05/19 03/05/19 03/05/19 Range/Units 01:40 07:10 07:13 RBC 3.11 L (4.30-5.90) m/uL Hgb 9.5 L (13.0-17.5) gm/dL Hct 28.9 L (39.0-53.0) % Plt Count 662 H (150-450) k/uL Neutrophils # 8.0 H (1.3-7.7) k/uL Lymphocytes # 0.7 L (1.0-4.8) k/uL POC Glucose (mg/dL) 161 H 161 H (75-99) mg/dL Microbiology - Last 24 Hours (Table) 03/02/19 22:17 Blood Culture - Preliminary Blood No Growth after 48 hours Assessment and Plan Assessment: - Status post Manuel fundoplication due to severe gastroesophageal reflux disease. Continue with PPI - Peritonitis secondary to bowel perforation. Status post expiratory laparotomy. - Postoperative ileus with resultant bowel obstruction. Improvement - New onset atrial fibrillation with RVR. Currently on metoprolol and Eliquis. Cardiology is following. -Fluid overload, secondary to potential hydration. Improving on IV Lasix - Type 2 diabetes mellitus: Sliding scale insulin hold off metformin as mentioned above -Hypertension, improvement - DVT prophylaxis with Eliquis -GI prophylaxis: Protonix Prognosis is guarded
[2019-03-05] MEDS: TAMSULOSIN 0.4 MG CAP.ER.24H PO SCH (09:13)
[2019-03-05] MEDS: APIXABAN 5 MG TAB PO SCH (09:13)
[2019-03-05] MEDS: METOPROLOL TARTRATE 25 MG TAB PO SCH (09:13)
[2019-03-05] MEDS: FUROSEMIDE 20 MG TAB PO SCH (09:13)
[2019-03-05] MEDS: PANTOPRAZOLE 40 MG TABLET PO SCH (09:13)
[2019-03-05] MEDS: SIMETHICONE 40 MG/0.6 ML DROPS 2,000 MG/30 ML BOTTLE PO SCH (09:13)
[2019-03-05] MEDS: ACETAMINOPHEN TAB 325 MG TAB PO SCH (09:14)
[2019-03-05] MEDS: ANIDULAFUNGIN 100 MG in SODIUM CHLORIDE 0.9% 100 ML IVPB SCH (10:33)
--- NOTE | 2019-03-05 12:12 | P.DS ---
Providers Date of admission: 02/16/19 09:23 Expected date of discharge: 03/05/19 Attending physician: Karan Adams Consults: 02/14/19 08:54 Consult Physician Routine Consulting Provider: Jena Lawrence Consult Reason/Comments: Medical management Do you want consulting provider notified?: Yes 02/17/19 01:03 Consult Physician Urgent Consulting Provider: Jed Lr Consult Reason/Comments: Respiratory distress Do you want consulting provider notified?: Yes, Notify in am 02/20/19 13:08 Consult Physician Routine Consulting Provider: Carissa Hall Consult Reason/Comments: Peritonitis Do you want consulting provider notified?: Yes 02/22/19 07:29 Consult Physician Routine Consulting Provider: Bridgette Muniz Consult Reason/Comments: atrial fibrillation with RVR Do you want consulting provider notified?: Yes, Notify in am Primary care physician: Gopal Ng [facility] Hospital Course: This is a 78-year-old male who was admitted to the hospital for laparoscopic Manuel fundoplication. Patient developed a postoperative small bowel obstruction and then underwent exploratory laparotomy for small bowel obstruction and repair of small bowel perforation. Patient had an extended course the ICU. Please see chart for details. Procedures: Laparoscopic Manuel location. Exploratory laparotomy Patient Condition at Discharge: Good Plan - Discharge Summary Discharge Rx Participant: Yes New Discharge Prescriptions: New Docusate [Colace] 100 mg PO BID #20 capsule HYDROcodone/APAP 5-325MG [[place] 5-325] 1 tab PO Q6HR PRN #10 tab PRN Reason: Pain No Action metFORMIN HCL [Glucophage] 500 mg PO DAILY Omeprazole 20 mg PO DAILY traMADol HCL [Ultram] 100 mg PO HS PRN PRN Reason: Pain Lisinopril [Zestril] 20 mg PO DAILY Acetaminophen [Tylenol Arthritis] 650 mg PO BID Discharge Medication List Omeprazole 20 mg PO DAILY 10/25/17 [History] metFORMIN HCL [Glucophage] 500 mg PO DAILY 10/25/17 [History] traMADol HCL [Ultram] 100 mg PO HS PRN 01/20/19 [History] Acetaminophen [Tylenol Arthritis] 650 mg PO BID 02/07/19 [History] Lisinopril [Zestril] 20 mg PO DAILY 02/07/19 [History] Docusate [Colace] 100 mg PO BID #20 capsule 02/14/19 [Rx] HYDROcodone/APAP 5-325MG [[place] 5-325] 1 tab PO Q6HR PRN #10 tab 02/14/19 [Rx] Follow up Appointment(s)/Referral(s): Karan Adams MD [STAFF PHYSICIAN] - 1 Week Discharge Disposition: TRANSFER TO SNF/ECF
[2019-03-05 12:18] LABS: Glucose,Whole Blood 199 mg/dL (75-99)
[2019-03-05] MEDS: SODIUM CHLORIDE 0.9% 1,000 ML IV SCH (13:15)
[2019-03-05 15:49] VITALS: BP 170/79; RESP 12; TEMP 98.2
--- NOTE | 2019-03-05 15:53 | CDI ---
Documentation Clarification Form Date: 03/05/2019 3:32:35 PM From: Radha Simmons RN, CCDS Admit Date: 02/16/2019 9:23:00 AM Patient Name: Calvin Davies Visit Number: [id number] Discharge Date: ATTENTION: The Clinical Documentation Specialists (CDI) and [facility] Coding Staff appreciate your assistance in clarifying documentation. Please respond to the clarification below the line at the bottom and electronically sign. The CDI & [facility] Coding staff will review the response and follow-up if needed. Please note: Queries are made part of the Legal Health Record. If you have any questions, please contact the author of this message via ITS. Dr. Bueno Sheet The patient has diabetes mellitus type 2, as indicated on progress note (insert date) 03/05/19 but Diabetes type 2, uncontrolled is also documented by cardiology and further clarification is needed. History/Risk Factors: Diabetes Mellitus, GERD, Hypertension Clinical Indicators: 78-year-old male present for elective Laparscopic Mnauel fundoplication related EGD findings of esophagitis. He has a past medical history of diabetes mellitus type 2 per H/P. Glucose monitoring results: (on admission) 165, 210, 233, 196, 205, 208 03/04/19-03/05/19: 200, 237, 161, 161 Treatment: Blood Glucose monitoring per orders Sliding scale insulin per orders In order to capture the severity of Illness and necessary documentation specificity, please clarify, Diabetes Mellitus type 2, uncontrolled as: DM Type 2, with Hyperglycemia DM Type 2 with Hypoglycemia Other, please specify Unable to Determine (Last Revision: March 2017) DM Type 2, with Hyperglycemia MTDD
[2019-03-05 17:20] VITALS: PULSE 100
--- NOTE | 2019-03-05 22:14 | PN ---
PROGRESS NOTE DATE OF SERVICE: 03/05/2019. REASON FOR FOLLOWUP: Secondary peritonitis. INTERVAL HISTORY: The patient was seen on rounds this morning. The patient was afebrile, breathing comfortably. No chest pain, shortness of breath. Occasional cough. No nausea, vomiting, abdominal pain. No diarrhea. PHYSICAL EXAMINATION: Blood pressure is 170/79 with a pulse of 90, temperature 98.4. He is 92% on room air. General description is an elderly male lying in bed in no distress. Respiratory system: Unlabored breathing. Clear to auscultation anteriorly. Heart S1, S2. Regular rate and rhythm. ABDOMEN: Soft. No tenderness. LABS: Hemoglobin 9.4, white count 9.3. DIAGNOSTIC IMPRESSION AND PLAN: Patient with secondary peritonitis from perforated small bowel, status post Manuel fundoplication. Patient has shown overall clinical improvement. His white count has been normal. Underlying infection adequately treated. No need for any antibiotic on discharge. Continue supportive care. MMODL / IJN: [id number] /
== END 2019-03-05 16:39 | DRG 326 ==
LOC: OR 06:10 → 4SSUR 08:51 → OR 02-16 09:23 → 4SSUR 02-16 09:23 → 2SICU 02-17 01:28 → 4SSUR 03-02 19:52
PROVIDERS: ADMIT Surgery; ATTEND Surgery
PROC: 0DV44ZZ Restriction of Esophagogastric Junction, Percutaneous Endoscopic Approach (ICD-10-PCS; principal; 2019-02-14 07:40)
PROC: 0DQ80ZZ Repair Small Intestine, Open Approach (ICD-10-PCS; 2019-02-20)
DX: K21.9 Gastro-esophageal reflux disease without esophagitis (principal); I50.33 Acute on chronic diastolic (congestive) heart failure; J96.01 Acute respiratory failure with hypoxia; K63.1 Perforation of intestine (nontraumatic); K65.9 Peritonitis, unspecified; F05 Delirium due to known physiological condition; J98.11 Atelectasis; K91.30 Postprocedural intestinal obstruction, unspecified as to partial versus complete; K91.89 Other postprocedural complications and disorders of digestive system; R18.8 Other ascites; D64.9 Anemia, unspecified; E11.43 Type 2 diabetes mellitus with diabetic autonomic (poly)neuropathy; E11.65 Type 2 diabetes mellitus with hyperglycemia; I11.0 Hypertensive heart disease with heart failure; I48.0 Paroxysmal atrial fibrillation; I49.3 Ventricular premature depolarization; K31.84 Gastroparesis; K44.9 Diaphragmatic hernia without obstruction or gangrene; K52.9 Noninfective gastroenteritis and colitis, unspecified; K66.8 Other specified disorders of peritoneum; M19.90 Unspecified osteoarthritis, unspecified site; N50.89 Other specified disorders of the male genital organs; N48.89 Other specified disorders of penis; Z79.01 Long term (current) use of anticoagulants; Z79.2 Long term (current) use of antibiotics; Z79.4 Long term (current) use of insulin; Z79.899 Other long term (current) drug therapy; R33.9 Retention of urine, unspecified; Z79.84 Long term (current) use of oral hypoglycemic drugs; R33.8 Other retention of urine; N99.89 Other postprocedural complications and disorders of genitourinary system
CPT/HCPCS: 36600; 70450; 71045; 74018; 74176; 74210; 80048; 80053; 80076; 81001; 82140; 82330; 82805; 83036; 83605; 83735; 84100; 84132; 84443; 84478; 84484; 85025; 85027; 85379; 85610; 85730; 87040; 87086; 87324; 93005; 93306; 94640; 94660

== ENCOUNTER 2019-04-07 19:21 | Inpatient (IN) | payer MEDICARE ==
[2019-04-07] MEDS ORDERED: HEPARIN SODIUM,PORCINE 5,000 UNIT/ML 1 ML VIAL SQ ONE (23:06)
[2019-04-07] MEDS: MELATONIN 3 MG TABLET PO PRN (23:51)
[2019-04-08 06:26] LABS: Glucose,Whole Blood 129 mg/dL (75-99)
[2019-04-08 06:51] LABS: African American GFR (CKD) >90 (>60 ml/min/1.73 sqM); Anion Gap 9 mmol/L; Blood Urea Nitrogen 14 mg/dL (9-20); Calcium 9.1 mg/dL (8.4-10.2); Carbon Dioxide 28 mmol/L (22-30); Chloride 100 mmol/L (98-107); Glucose 131 mg/dL (74-99); Potassium 4.3 mmol/L (3.5-5.1); Sodium 137 mmol/L (137-145)
[2019-04-08 06:59] LABS: Basophils # (A) 0.1 k/uL (0-0.2); Basophils % (A) 1 %; Eosinophils # (A) 0.1 k/uL (0-0.7); Eosinophils % (A) 2 %; HCT 30.6 % (39.0-53.0); HGB 9.8 gm/dL (13.0-17.5); Hypochromasia Moderate; Lymphocytes % (A) 12 %; Mean Platelet Volume 5.3; Monocytes # (A) 0.4 k/uL (0-1.0); Monocytes % (A) 5 %; Neutrophils # (A) 6.8 k/uL (1.3-7.7); Neutrophils % (A) 81 %; Platelet Count 612 k/uL (150-450); Poikilocytosis Slight; RDW 14.2 % (11.5-15.5); WBC 8.5 k/uL (3.8-10.6)
[2019-04-08 07:37] LABS: MCV 87.4 fL (80.0-100.0)
[2019-04-08 10:45] LABS: ALT 16 U/L (21-72); AST 18 U/L (17-59); Albumin 3.3 g/dL (3.5-5.0); Alkaline Phosphatase 130 U/L (38-126); Magnesium 2.1 mg/dL (1.6-2.3); Total Bilirubin 0.4 mg/dL (0.2-1.3); Total Protein 7.3 g/dL (6.3-8.2)
[2019-04-08] MEDS: HEPARIN SODIUM,PORCINE 5,000 UNIT/ML 1 ML VIAL SQ SCH ×2 (11:09→21:32)
[2019-04-08] MEDS ORDERED: ACETAMINOPHEN TAB 325 MG TAB PO PRN (11:13)
[2019-04-08] MEDS ORDERED: DOCUSATE 100 MG CAP PO PRN (11:13)
[2019-04-08 11:24] LABS: Glucose,Whole Blood 168 mg/dL (75-99)
--- NOTE | 2019-04-08 12:39 | P.CON ---
Consult Note - . Consult date: 04/08/19 Assessment/Plan:: This is a 78-year-old pleasant gentleman who has been seen by the wound care on for a nonhealing ulceration to the abdomen. Patient states that he had surgery approximately 6 weeks ago for hernia repair. And had a open ulceration from the intervention. Patient states that he was utilizing moistened gauze to the site changing every other day with home care. Patient states in the beginning they did utilize a silver material however they changed to the gauze within a week or 2. Patient states that the area has gotten smaller over the course of 6 weeks. However it is still measuring at least 1I 1.3 x 1.2 cm. Patient states he continues to have serous drainage from the site. Denies any pain or tenderness to the site. Patient's past medical history is significant for diabetes, GERD, hypertension, osteoarthritis, on 02/14/2019 he had a Mrs. fundoplasty performed by Dr. naima kirby. On 02/20/2019 exploratory lap due to a perforated bowel. Review of systems Integumentary: Reports open sore to abdomen, denies any other open sores, denies pruritus, denies bruising Physical exam: Integumentary: See HPI Assessment/plan: 1. Surgical wound dehiscence post Manuel fundoplasty and exploratory lap related to perforated bowel. Cleanse with normal saline. Apply absorptive silver moistened, dry gauze, secure with paper tape. Change Sunday. Discussed with patient he may continue on home care with the wound treatment however if it is not improving may see wound care. 2. Diabetes with other skin ulceration, see above 3. History of GERD 4. History of hypertension Acute family for the consultation. Any questions please contact the wound care center DNP note has been reviewed and discussed with Dr. Queen and the impression and plan of care has been directed as dictated.
--- NOTE | 2019-04-08 13:30 | P.HPIM ---
History of Present Illness This is a pleasant 78 years old male with past medical history of diabetes mellitus, GERD, hypertension, recent history of perforated viscus secondary to hernia surgery operation, patient status post exploratory laparotomy on 02/20. After surgery patient went to rehab and then home. During hospitalization last time patient developed A. fib as per family at bedside. Patient this time presents with regular rhythm, when visiting nurse noted that one of the beats were missing, his PCP. A Holter monitor for him to be called about 3 days ago for arrhythmia and instructed to go to emergency room at [facility] from which patient was transferred to [facility]. Patient reports some postural dizziness however he denies chest pain or dyspnea. No palpitation. No change in urine or bowel habits. No coughing. No fever Vitas looks stable with heart rates 81-86, blood pressure 159/79. Labs showing unremarkable CBC with hemoglobin of 9.8. Potassium 4.3, magnesium 2.1, rest of BMP and liver enzymes were unremarkable. Review of Systems CONSTITUTIONAL: No fever, no malaise, no fatigue. HEENT: No recent visual problems or hearing problems. Denied any sore throat. CARDIOVASCULAR: No orthopnea, PND, no palpitations, no syncope. PULMONARY: No shortness of breath, no cough, no hemoptysis. GASTROINTESTINAL: No diarrhea, no nausea, no vomiting, no abdominal pain. Normo active bowel sounds. NEUROLOGICAL: No headaches, no weakness, no numbness. HEMATOLOGICAL: Denies any bleeding or petechiae. GENITOURINARY: Denies any burning micturition, frequency, or urgency. MUSCULOSKELETAL/RHEUMATOLOGICAL: Denies any joint pain, swelling, or any muscle pain. ENDOCRINE: Denies any polyuria or polydipsia. Past Medical History Past Medical History: Diabetes Mellitus, GERD/Reflux, Hypertension, Skin Disorder Additional Past Medical History / Comment(s): arthritis History of Any Multi-Drug Resistant Organisms: None Reported Past Surgical History: Appendectomy, Orthopedic Surgery, Prostate Surgery Additional Past Surgical History / Comment(s): colonsocopy, maye knee arthroscopy, EGD with diliation,. 02/14/19 Manuel fundoplasty performed by Dr Adams. 02/20/19 Exploratory lap r/t perforated bowel performed by Dr. Adams Past Anesthesia/Blood Transfusion Reactions: No Reported Reaction Past Psychological History: No Psychological Hx Reported Smoking Status: Never smoker Past Alcohol Use History: Rare Past Drug Use History: None Reported - Past Family History Mother Family Medical History: No Reported History Father Family Medical History: Myocardial Infarction ([place]) Medications and Allergies Home Medications Medication Instructions Recorded Confirmed Type Acetaminophen [Tylenol Arthritis] 650 mg PO BID PRN 02/07/19 04/07/19 History Tamsulosin [Flomax] 0.4 mg PO [id number] cap.er.24h 03/05/19 04/07/19 Rx Docusate [Colace] 100 mg PO BID PRN 04/07/19 04/07/19 History Metoprolol Tartrate [Lopressor] 50 mg PO BID 04/07/19 04/07/19 History metFORMIN HCL 500 mg PO BID 04/07/19 04/07/19 History Allergies Allergy/AdvReac Type Severity Reaction Status Date / Time No Known Allergies Allergy Verified 04/07/19 22:39 Physical Exam Vitals: Vital Signs Temp Pulse Resp BP Pulse Ox 04/08/19 12:00 97.7 F 81 16 159/79 97 04/08/19 08:00 98.9 F 85 16 147/79 96 04/08/19 04:00 98.7 F 86 16 165/82 96 04/08/19 00:00 98.8 F 83 16 144/79 97 Intake and Output 04/07/19 04/08/19 04/08/19 22:59 06:59 14:59 Intake Total 860 Output Total 425 Balance -425 860 Intake: Oral 860 Output: Urine 425 Other: Voiding Method Toilet Toilet # Voids 3 Weight 63.4 kg 63.4 kg GENERAL: The patient is alert and oriented x3, not in any acute distress. Well developed, well nourished. HEENT: Pupils are round and equally reacting to light. EOMI. No scleral icterus. No conjunctival pallor. Normocephalic, atraumatic. No pharyngeal erythema. No thyromegaly. CARDIOVASCULAR: S1 and S2 present. No murmurs, rubs, or gallops. PULMONARY: Chest is clear to auscultation, no wheezing or crackles. -ABDOMEN: Soft, nontender, nondistended, normoactive bowel sounds. No palpable organomegaly. Vertical scar, healed with small punctate open wound in the lower half with some purulent drainage MUSCULOSKELETAL: No joint swelling or deformity. EXTREMITIES: No cyanosis, clubbing, or pedal edema. NEUROLOGICAL: Gross neurological examination did not reveal any focal deficits. SKIN: No rashes. No petechiae Results CBC & Chem 7: 04/08/19 05:36 04/08/19 05:36 Labs: Abnormal Lab Results - Last 24 Hours (Table) 04/08/19 04/08/19 04/08/19 Range/Units 05:36 05:36 06:25 RBC 3.50 L (4.30-5.90) m/uL Hgb 9.8 L (13.0-17.5) gm/dL Hct 30.6 L (39.0-53.0) % Plt Count 612 H (150-450) k/uL Creatinine 0.60 L (0.66-1.25) mg/dL Glucose 131 H (74-99) mg/dL POC Glucose (mg/dL) 129 H (75-99) mg/dL ALT 16 L (21-72) U/L Alkaline Phosphatase 130 H (38-126) U/L Albumin 3.3 L (3.5-5.0) g/dL 04/08/19 Range/Units 11:18 RBC (4.30-5.90) m/uL Hgb (13.0-17.5) gm/dL Hct (39.0-53.0) % Plt Count (150-450) k/uL Creatinine (0.66-1.25) mg/dL Glucose (74-99) mg/dL POC Glucose (mg/dL) 168 H (75-99) mg/dL ALT (21-72) U/L Alkaline Phosphatase (38-126) U/L Albumin (3.5-5.0) g/dL Thrombosis Risk Factor Assmnt - Choose All That Apply Any of the Below Risk Factors Present?: No Other Risk Factors: Yes Each Risk Factor Represents 3 Points: Age 75 years or older Other congenital or acquired thrombophilia - If yes, enter type in comment: No Thrombosis Risk Factor Assessment Total Risk Factor Score: 3 Thrombosis Risk Factor Assessment Level: Moderate Risk Assessment and Plan Assessment: Cardiac arrhythmia Possible history of A. fib as per patient and family surgical wound dehiscence in the mid abdominal, his status post Manuel fundoplasty and exploratory laparotomy for perforated viscus on 02/2019 Diabetes mellitus Hypertension GERD Plan: This is a pleasant 78 years old male who presents because of arrhythmia. Cardiology consulted and they're evaluated the patient. Wound team consult for central abdominal wound dehiscence. Continue with telemetry. Continue with metformin and Flomax. Labs and medication were reviewed.. Continue same treatment. Continue with symptomatic treatment. Resume home medication. Monitor lytes and vitals. DVT and GI prophylaxis. Further recommendations of the clinical course of the patient DVT prophylaxis: Subcutaneous heparin GI Prophylaxis: Pepcid Prognosis is guarded
--- NOTE | 2019-04-08 13:47 | CONS ---
CONSULTATION CHIEF COMPLAINT: Bradycardia. Mr. Davies is a 78-year-old gentleman with history of diabetes and hypertension, who is admitted to the hospital because of bradycardia noted on an event monitor at home. The patient recently had hernia repair and subsequently had bowel perforation and was in the hospital for a while. At that time he apparently had an episode of atrial fibrillation and he was discharged home on Eliquis. Subsequently, the Eliquis had been stopped and he underwent an event monitor where he was told he had a 7-second pause and is admitted to hospital. I do not have these rhythm strips with me. He did not have any syncope. At his last admission, he has had intermittent episodes of atrial fibrillation. PAST MEDICAL HISTORY: Past medical history is significant for hypertension and diabetes. MEDICATIONS: Medications at home include metformin 500 b.i.d., Lopressor 50 b.i.d., Colace and Tylenol. ALLERGIES: There are no known drug allergies. FAMILY HISTORY: Family history is negative for premature coronary artery disease. SOCIAL HISTORY: Social history is negative for current smoking, EtOH abuse, or drug abuse. REVIEW OF SYSTEMS: HEENT is unremarkable. CARDIAC: As described above. RESPIRATORY: Negative. GI: Negative. GENITOURINARY: Negative. ALLERGY/IMMUNOLOGY: Negative. SKIN: Negative. MUSCULOSKELETAL: Negative. ENDOCRINE: Negative. DERM: Negative. CONSTITUTIONAL: Negative. ONCOLOGICAL: Negative. GI: Significant for recent abdominal surgery. PHYSICAL EXAMINATION: On exam, patient is comfortable at rest. Heart rate is 80 beats per minute. Blood pressure is 159/79. Respiratory rate is 16. There is no jugular venous distention. Carotid upstroke is normal. There is no bruit. Chest exam reveals good air entry bilaterally. Heart exam reveals first and second heart sounds and S4 is heard. Abdomen is soft. Examination of the extremities did not reveal any edema. Peripheral pulses are felt. MORNING BABYSITTER exam did not reveal focal neurological deficits. LABS: Labs showed that the hemoglobin is 9.8. Troponin is negative. Potassium is 4.3. Creatinine is 0.6. ASSESSMENT: 1. History of asymptomatic sinus pause. 2. Paroxysmal atrial fibrillation. 3. Hypertension. 4. Status post recent abdominal surgery. PLAN: Patient's bradycardia may be related to the beta blockers that he is on. I am going to stop it. Obtain the event monitor results. I reviewed all his records. I am going to start him on amlodipine for blood pressure control and if he is stable remains in sinus rhythm without any cardiac arrhythmia, we will discharge him home. I do not have any EKG from this admission. I was told he had one I will review it once it is available. Will obtain a TSH if we have to. [place] / AGUILA: [id number] /
[2019-04-08] MEDS: amLODIPine 10 MG TAB PO SCH (15:21)
[2019-04-08 16:35] LABS: Glucose,Whole Blood 135 mg/dL (75-99)
[2019-04-08 21:07] LABS: Glucose,Whole Blood 127 mg/dL (75-99)
[2019-04-08] MEDS: metFORMIN 500 MG TAB PO SCH (21:31)
[2019-04-08] MEDS: FAMOTIDINE 20 MG/2 ML VIAL IV SCH (21:31)
[2019-04-08] MEDS: MELATONIN 3 MG TABLET PO PRN (21:34)
[2019-04-09 04:56] VITALS: RESP 18
[2019-04-09 06:13] LABS: Glucose,Whole Blood 138 mg/dL (75-99)
[2019-04-09 07:21] LABS: Basophils % (A) 0 %; Eosinophils # (A) 0.1 k/uL (0-0.7); Eosinophils % (A) 1 %; HCT 31.9 % (39.0-53.0); HGB 10.4 gm/dL (13.0-17.5); Hypochromasia Moderate; Lymphocytes # (A) 1.1 k/uL (1.0-4.8); Lymphocytes % (A) 14 %; MCH 27.9 pg (25.0-35.0); MCHC 32.6 g/dL (31.0-37.0); MCV 85.6 fL (80.0-100.0); Mean Platelet Volume 5.1; Monocytes # (A) 0.3 k/uL (0-1.0); Monocytes % (A) 4 %; Neutrophils # (A) 6.3 k/uL (1.3-7.7); Neutrophils % (A) 79 %; Platelet Count 628 k/uL (150-450); Poikilocytosis Slight; RBC 3.73 m/uL (4.30-5.90); RDW 14.1 % (11.5-15.5)
[2019-04-09] MEDS ORDERED: TAMSULOSIN 0.4 MG CAP.ER.24H PO SCH (08:30)
[2019-04-09] MEDS: HEPARIN SODIUM,PORCINE 5,000 UNIT/ML 1 ML VIAL SQ SCH (08:32)
[2019-04-09] MEDS: metFORMIN 500 MG TAB PO SCH (08:32)
[2019-04-09] MEDS: amLODIPine 10 MG TAB PO SCH (08:32)
[2019-04-09] MEDS: FAMOTIDINE 20 MG/2 ML VIAL IV SCH (08:32)
[2019-04-09 08:43] VITALS: TEMP 97.8
[2019-04-09 12:10] LABS: Glucose,Whole Blood 143 mg/dL (75-99)
--- NOTE | 2019-04-09 14:40 | P.PN ---
Subjective Progress Note Date: 04/09/19 This is a 78-year-old gentleman with history of diabetes, hypertension, admitted to the hospital because of bradycardia noted on an event monitor at home. Patient recently had a hernia repair and subsequently had a bowel perforation and was in the hospital for quite some time. He also had an episode of atrial fibrillation, he was discharged home on Eliquis. Subsequently the Eliquis was discontinued, patient underwent event monitor where he was told to have a Abelardo second pause and he was admitted to the hospital. The event monitor rhythm strips are reviewed, did show evidence of a 7 second pause, patient is currently off of his beta sehyla, no pauses or bradycardia noted on the monitor and hemo dynamically he has been stable. From cardiology's perspective he may be able to be discharged home today to follow-up with Dr. Maya in the office, subsequent monitor will be placed now that the patient is off of beta sheyla, and if there is any further pauses patient then may require pacemaker. Objective - Vital Signs Vital signs: Vital Signs Temp 97.8 F 04/09/19 08:35 Pulse 86 04/09/19 08:35 Resp 18 04/09/19 08:35 BP 137/76 04/09/19 08:35 Pulse Ox 99 04/09/19 08:35 Intake & Output 04/08/19 04/09/19 04/09/19 18:59 06:59 18:59 Intake Total 1340 240 Balance 1340 240 Weight 62 kg Intake: Oral 1340 240 Other: Voiding Method Toilet Toilet Toilet # Voids 2 - Exam PHYSICAL EXAMINATION: GENERAL: 78-year-old gentleman in no acute distress at the time of my examination HEENT: Head is atraumatic, normocephalic. Pupils equal, round. Sclera anicteric. Conjunctiva are clear. Mucous membranes of the mouth are moist. Neck is supple. There is no elevated jugular venous pressure.No carotid bruit is heard. HEART EXAMINATION: Heart S1, S2 normal. No murmur or gallop heard. CHEST EXAMINATION: Lungs are clear to auscultation and precussion. No chest wall tenderness is noted on palpation or with deep breathing. ABDOMEN: Soft, nontender. Bowel sounds are heard. No organomegaly noted. EXTREMITIES: 2+ peripheral pulses with no evidence of peripheral edema and no calf tenderness noted. NEUROLOGIC patient is awake, alert and oriented X3. . - Labs CBC & Chem 7: 04/09/19 06:24 04/08/19 05:36 Labs: Abnormal Lab Results - Last 24 Hours (Table) 04/08/19 04/08/19 04/09/19 Range/Units 16:33 21:05 06:11 RBC (4.30-5.90) m/uL Hgb (13.0-17.5) gm/dL Hct (39.0-53.0) % Plt Count (150-450) k/uL POC Glucose (mg/dL) 135 H 127 H 138 H (75-99) mg/dL 04/09/19 04/09/19 Range/Units 06:24 12:00 RBC 3.73 L (4.30-5.90) m/uL Hgb 10.4 L (13.0-17.5) gm/dL Hct 31.9 L (39.0-53.0) % Plt Count 628 H (150-450) k/uL POC Glucose (mg/dL) 143 H (75-99) mg/dL Assessment and Plan Plan: Assessment and plan #1 bradycardia with evidence of 7 second pause while on a beta sheyla #2 hypertension #3 diabetes #4 hyperlipidemia Plan From cardiology's perspective, the patient may be able to be discharged home today off of beta blockers. We will make him a follow-up appointment with Dr. Maya in the [place] office. Patient will again wearing an event monitor as an outpatient, if he has further significant pauses while off of beta sheyla he will then require implantation of a permanent pacemaker. DNP note has been reviewed, I agree with a documented findings and plan of care. Patient was seen and examined.
[2019-04-09 15:08] VITALS: BP 153/87; PULSE 105
[2019-04-09] MEDS ORDERED: FAMOTIDINE 20 MG TAB PO SCH (21:00)
== END 2019-04-09 15:31 | disposition home or self-care (01) | DRG 309 ==
LOC: 3SCARD 21:20
PROVIDERS: ADMIT Internal Medicine; ATTEND Internal Medicine
DX: R00.1 Bradycardia, unspecified (principal); T81.31XA Disruption of external operation (surgical) wound, not elsewhere classified, initial encounter; I48.0 Paroxysmal atrial fibrillation; E11.9 Type 2 diabetes mellitus without complications; E78.5 Hyperlipidemia, unspecified; I10 Essential (primary) hypertension; K21.9 Gastro-esophageal reflux disease without esophagitis; Z79.84 Long term (current) use of oral hypoglycemic drugs; Z79.899 Other long term (current) drug therapy; Z82.49 Family history of ischemic heart disease and other diseases of the circulatory system; T44.7X5A Adverse effect of beta-adrenoreceptor antagonists, initial encounter
CPT/HCPCS: 80053; 83735; 84443; 84484; 85025

== ENCOUNTER 2019-10-13 08:22 | Observation (INO) | payer MEDICARE ==
[2019-10-10 10:47] VITALS: BMI 24.3
[~2019-10-13 08:22] MED LIST changes: +ACETAMINOPHEN TAB 500 MG TAB PO ONE; +DEXAMETHASONE SOD PHOSPHATE 10 MG/ML 1 ML VIAL IV ONE; +HEPARIN SODIUM,PORCINE 5,000 UNIT/ML 1 ML VIAL SQ ONE; -LACTATED RINGERS 1,000 ML IV SCH; +LIDOCAINE 1% (10MG/ML) FOR IV START INTRADERMA PRN; +ONDANSETRON 4 MG/2 ML VIAL IVP ONE; +fentaNYL (PF) 50 MCG/ML 2 ML AMP IVP PRN
[2019-10-13 09:27] LABS: Glucose,Whole Blood 120 mg/dL (75-99)
--- NOTE | 2019-10-13 09:30 | P.GSHP ---
History of Present Illness H&P Date: 10/13/19 Chief Complaint: Incisional hernia This a 79-year-old male who presents today for open repair of incarcerated incisional hernia. Patient has developed an incisional hernia after exploratory laparotomy. The hernias developed the last 4 months. It is increased in size. Past Medical History Past Medical History: Diabetes Mellitus, GERD/Reflux, Hypertension, Osteoarthritis (OA) Additional Past Medical History / Comment(s): BRADYCARDIA, STATES INFECTION AT INCISION OF PREVIOUS SURGERY - DENIES CURRENT DRAINAGE. History of Any Multi-Drug Resistant Organisms: None Reported Past Surgical History: Appendectomy, Hernia Repair, Orthopedic Surgery, Prostate Surgery Additional Past Surgical History / Comment(s): colonsocopy, maye knee a rthroscopy, EGD with diliation, inguinal hernia repair.,. 02/14/19 Manuel fundoplasty. 02/20/19 Exploratory lap r/t perforated bowel Past Anesthesia/Blood Transfusion Reactions: No Reported Reaction Past Psychological History: No Psychological Hx Reported Smoking Status: Never smoker Past Alcohol Use History: Rare Past Drug Use History: None Reported - Past Family History Mother Family Medical History: No Reported History Father Family Medical History: Myocardial Infarction (CT) Medications and Allergies Home Medications Medication Instructions Recorded Confirmed Type metFORMIN HCL 500 mg PO BID 04/07/19 10/13/19 History Cyanocobalamin (Vitamin B-12) 1,000 mcg PO DAILY 10/10/19 10/13/19 History [Vitamin B-12] Gabapentin [Neurontin] 300 mg PO TID 10/10/19 10/13/19 History Metoprolol Tartrate [Lopressor] 50 mg PO BID 10/10/19 10/13/19 History Allergies Allergy/AdvReac Type Severity Reaction Status Date / Time No Known Allergies Allergy Verified 10/13/19 08:59 Surgical - Exam Vital Signs Temp Pulse Resp BP Pulse Ox 97.4 F L 55 L 16 149/72 99 10/13/19 09:16 10/13/19 09:16 10/13/19 09:16 10/13/19 09:16 10/13/19 09:16 - General well developed, well nourished, no distress - Eyes PERRL - ENT normal pinna - Neck no masses - Respiratory normal expansion - Cardiovascular Rhythm: regular - Abdomen Abdomen: soft, non tender Hernia: incisional (Large incisional hernia with incarcerated small bowel) Results - Labs Abnormal Lab Results - Last 24 Hours (Table) 10/13/19 Range/Units 09:12 POC Glucose (mg/dL) 120 H (75-99) mg/dL Assessment and Plan Assessment: Incarcerated incisional hernia. We'll perform open repair.
[2019-10-13 09:36] LABS: HCT 41.9 % (39.0-53.0); HGB 13.7 gm/dL (13.0-17.5); MCH 29.8 pg (25.0-35.0); MCHC 32.7 g/dL (31.0-37.0); MCV 91.2 fL (80.0-100.0); Mean Platelet Volume 6.6; Platelet Count 400 k/uL (150-450); RDW 13.6 % (11.5-15.5); WBC 7.4 k/uL (3.8-10.6)
[2019-10-13] MEDS: LACTATED RINGERS 1,000 ML IV SCH (09:37)
[2019-10-13 09:41] LABS: African American GFR (CKD) >90 (>60 ml/min/1.73 sqM); Anion Gap 8 mmol/L; Blood Urea Nitrogen 17 mg/dL (9-20); Calcium 9.6 mg/dL (8.4-10.2); Carbon Dioxide 27 mmol/L (22-30); Chloride 103 mmol/L (98-107); Glucose 125 mg/dL (74-99); Non-African American GFR(CKD) >90 (>60 ml/min/1.73 sqM); Potassium 4.7 mmol/L (3.5-5.1); Sodium 138 mmol/L (137-145)
[2019-10-13] MEDS ORDERED: GLYCOPYRROLATE 0.2 MG/ML 2 ML VIAL ONE (10:18)
[2019-10-13] MEDS ORDERED: NEOSTIGMINE 1 MG/ML 10 ML VIAL ONE (10:18)
[2019-10-13] MEDS ORDERED: fentaNYL (PF) 50 MCG/ML 2 ML AMP ONE (10:18)
[2019-10-13] MEDS ORDERED: PROPOFOL 10 MG/ML 20 ML VIAL IV ONE (10:18)
[2019-10-13] MEDS ORDERED: ROCURONIUM BROMIDE 10 MG/ML 5 ML VIAL IV ONE (10:18)
[2019-10-13] MEDS ORDERED: LIDOCAINE 1% INJ 10MG/ML (20 ML MDV) ONE (10:18)
[2019-10-13] MEDS ORDERED: MIDAZOLAM 2 MG/2 ML VIAL ONE (10:18)
[2019-10-13] MEDS ORDERED: HYDROmorphone (PF) 1 MG/ML ONE (10:18)
[2019-10-13] MEDS ORDERED: PHENYLEPHRINE-0.9% NACL SYG 1 MG/10 ML SYRINGE ONE (10:18)
[2019-10-13] MEDS ORDERED: ePHEDrine SULFATE/0.9% NACL/PF 50 MG/5 ML SYRINGE IV ONE (10:18)
[2019-10-13] MEDS ORDERED: SUCCINYLCHOLINE CHLORIDE 100 MG/5 ML SYR IV ONE (10:18)
[2019-10-13] MEDS ORDERED: LACTATED RINGERS 1,000 ML IV ONE ×2 (11:51→11:59)
[2019-10-13] MEDS ORDERED: ONDANSETRON 4 MG/2 ML VIAL IVP PRN (11:59)
[2019-10-13] MEDS ORDERED: ACETAMINOPHEN TAB 325 MG TAB PO PRN (11:59)
[2019-10-13] MEDS ORDERED: NALOXONE 0.4 MG/ML 1 ML VIAL IV PRN (11:59)
[2019-10-13] MEDS: HYDROmorphone 0.5 MG/0.5 ML SYRINGE IVP PRN ×7 (12:06→22:22)
[2019-10-13] MEDS ORDERED: fentaNYL (PF) 50 MCG/ML 2 ML AMP IV ONE (12:35)
--- NOTE | 2019-10-13 12:43 | P.OP ---
Date of Procedure: 10/13/19 Preoperative Diagnosis: Incarcerated incisional hernia Postoperative Diagnosis: Incarcerated incisional hernia Anesthesia: ANAND Surgeon: Karan Adams Estimated Blood Loss (ml): 50 Pathology: none sent Condition: stable Disposition: PACU Description of Procedure: Patient's placed on the operating table in the supine position. General anesthesia. His abdomen was prepped and draped usual sterile fashion. Patient had an incarcerated incisional hernia. The hernia is quite large. A skin incision was made through the previous midline laparotomy scar. Using left cautery and sharp blunt dissection the hernia sac was dissected free from subcutaneous tissues. Hernia sac was then opened and then the incarcerated small bowel was placed back within the peritoneal cavity. The fascia was dissected free from some taste tissues. And then the fascia was further exposed. The fascia was then closed with [id number] 0 Ethibond suture. This was buttressed then with #1 stratafix suture. A PROSPER drains placed over top the repair. And then Renetta's fascia was closed with 0 Vicryl. Skin was closed everton. Patient top she will was sent to recovery room stable condition
[2019-10-13] MEDS: metFORMIN 500 MG TAB PO SCH (17:50)
[2019-10-13] MEDS: METOPROLOL TARTRATE 50 MG TAB PO SCH (21:02)
[2019-10-13] MEDS: GABAPENTIN 300 MG CAP PO SCH (21:03)
[2019-10-14] MEDS: LACTATED RINGERS 1,000 ML IV SCH (00:59)
[2019-10-14] MEDS: HYDROmorphone 0.5 MG/0.5 ML SYRINGE IVP PRN ×2 (01:31→11:32)
[2019-10-14] MEDS: ENOXAPARIN 40 MG/0.4 ML SYRINGE SQ SCH (07:50)
[2019-10-14] MEDS: GABAPENTIN 300 MG CAP PO SCH ×3 (07:50→21:24)
[2019-10-14] MEDS: METOPROLOL TARTRATE 50 MG TAB PO SCH ×2 (07:50→21:24)
[2019-10-14] MEDS: metFORMIN 500 MG TAB PO SCH ×2 (07:50→17:43)
--- NOTE | 2019-10-14 07:57 | P.CONS ---
History of Present Illness - History of Present Illness This is a pleasant 79 years old male with past medical history of diabetes m ellitus, hypertension, GERD, bradycardia. Benign prostatic hypertrophy and he follow-up with Dr. Alvarez for that. Also he is a patient of Dr. Ng and Dr. Mckeon as his primary doctor. He presents for incarcerated incisional hernia secondary to expectorate laparotomy, slightly progressive over 4 months. He is a status post incisional hernia repair and today is postoperative day #1. This morning he is fully awake and oriented, complaining from pain at surgical site. He ate little of his breakfast with no nausea vomiting. He is passing gases but no bowel movementOn discharge, the patient has been prescribed yesterday he had urinary retention with bladder scan more than 600 mL and patient has to be straight cathed, no Peter catheter was inserted, he is already on Flomax but has not restarted, we will going to start and increase the dose from daily to twice a day. Patient follows with Dr. Vaz and he sees him every year to check on his enlarged prostate, his comments appointment isn't this drawn and patient was instructed and encouraged to call and make earlier appointment within 1-2 weeks and he agrees Vitals are stable, WBC is within normal limits, electrolytes and creatinine normal. Glucose 125, coronary virus nondetected. Review of Systems CONSTITUTIONAL: No fever, no malaise, no fatigue. HEENT: No recent visual problems or hearing problems. Denied any sore throat. CARDIOVASCULAR: No orthopnea, PND, no palpitations, no syncope. PULMONARY: No shortness of breath, no cough, no hemoptysis. GASTROINTESTINAL: No diarrhea, no nausea, no vomiting, no abdominal pain. Normoactive bowel sounds. NEUROLOGICAL: No headaches, no weakness, no numbness. HEMATOLOGICAL: Denies any bleeding or petechiae. GENITOURINARY: Denies any burning micturition, frequency, or urgency. MUSCULOSKELETAL/RHEUMATOLOGICAL: Denies any joint pain, swelling, or any muscle pain. ENDOCRINE: Denies any polyuria or polydipsia. Past Medical History Past Medical History: Diabetes Mellitus, GERD/Reflux, Hypertension, Os teoarthritis (OA) Additional Past Medical History / Comment(s): BRADYCARDIA, STATES INFECTION AT INCISION OF PREVIOUS SURGERY - DENIES CURRENT DRAINAGE. History of Any Multi-Drug Resistant Organisms: None Reported Past Surgical History: Appendectomy, Hernia Repair, Orthopedic Surgery, Prostate Surgery Additional Past Surgical History / Comment(s): colonsocopy, maye knee arthroscopy, EGD with diliation, inguinal hernia repair.,. 02/14/19 Manuel fundoplasty. 02/20/19 Exploratory lap r/t perforated bowel Past Anesthesia/Blood Transfusion Reactions: No Reported Reaction Past Psychological History: No Psychological Hx Reported Smoking Status: Never smoker Past Alcohol Use History: Rare Past Drug Use History: None Reported - Past Family History Mother Family Medical History: No Reported History Father Family Medical History: Myocardial Infarction (PR) Medications and Allergies Home Medications Medication Instructions Recorded Confirmed Type metFORMIN HCL 500 mg PO BID 04/07/19 10/13/19 History Cyanocobalamin (Vitamin B-12) 1,000 mcg PO DAILY 10/10/19 10/13/19 History [Vitamin B-12] Gabapentin [Neurontin] 300 mg PO TID 10/10/19 10/13/19 History Metoprolol Tartrate [Lopressor] 50 mg PO BID 10/10/19 10/13/19 History Allergies Allergy/AdvReac Type Severity Reaction Status Date / Time No Known Allergies Allergy Verified 10/13/19 08:59 Physical Exam Vitals: Vital Signs Temp Pulse Pulse Resp BP Pulse Ox 10/14/19 05:00 98.5 F 90 16 174/88 99 10/13/19 21:00 96.3 F L 92 16 135/75 99 10/13/19 16:00 72 17 129/62 95 10/13/19 15:30 83 138/78 99 10/13/19 14:59 83 17 127/73 97 10/13/19 14:30 78 131/69 98 10/13/19 14:03 70 12 127/73 99 10/13/19 13:45 97.6 F 87 136/70 98 10/13/19 13:16 66 16 140/67 100 10/13/19 13:03 62 16 178/74 100 10/13/19 12:45 62 18 153/74 92 L 10/13/19 12:31 76 18 161/70 92 L 10/13/19 12:15 68 16 166/61 95 10/13/19 12:00 97.8 F 69 16 175/76 95 10/13/19 09:16 97.4 F L 55 L 16 149/72 99 Intake and Output 10/13/19 10/14/19 10/14/19 22:59 06:59 14:59 Intake Total 890 1190 Output Total 120 50 Balance 770 1140 Intake: Intake, IV Titration 300 600 Amount Lactated Ringers 1,000 ml 300 600 @ 75 mls/hr IV .[id number] ONE Rx#:[id number] Oral 590 590 Output: Drainage 120 50 Abdomen 120 50 Other: Voiding Method Toilet GENERAL: The patient is alert and oriented x3, not in any acute distress. Well developed, well nourished. HEENT: Pupils are round and equally reacting to light. EOMI. No scleral icterus. No conjunctival pallor. Normocephalic, atraumatic. No pharyngeal erythema. No thyromegaly. CARDIOVASCULAR: S1 and S2 present. No murmurs, rubs, or gallops. PULMONARY: Chest is clear to auscultation, no wheezing or crackles. -ABDOMEN: Soft, nontender, nondistended, normoactive bowel sounds. No palpable organomegaly. Midline surgical wound was dressing MUSCULOSKELETAL: No joint swelling or deformity. EXTREMITIES: No cyanosis, clubbing, or pedal edema. NEUROLOGICAL: Gross neurological examination did not reveal any focal deficits. SKIN: No rashes. No petechiae Results CBC & Chem 7: 10/13/19 09:15 10/13/19 09:15 Labs: Abnormal Lab Results - Last 24 Hours (Table) 10/13/19 10/13/19 Range/Units 09:12 09:15 Glucose 125 H (74-99) mg/dL POC Glucose (mg/dL) 120 H (75-99) mg/dL Assessment and Plan Assessment: Incarcerated incisional hernia, status post repair Urinary retention secondary to BPH Hypertension Diabetes mellitus GERD History of bradycardia Plan: This is a pleasant 79 years old male who presents for incisional hernia repair. Continue with postop care. Pain management. Restart Flomax as twice a day, patient was instructed to follow up with Dr. Vaz upon discharge in 1-2 weeks and he agrees. Labs and medication were reviewed.. Continue same treatment. Continue with symptomatic treatment. Resume home medication. Monitor lytes and vitals. DVT and GI prophylaxis. Further recommendations of the clinical course of the patient DVT prophylaxis: Subcutaneous Lovenox GI Prophylaxis: Pepcid Thank you for consulting us
[2019-10-14] MEDS: TAMSULOSIN 0.4 MG CAP.ER.24H PO SCH (08:12)
[2019-10-14] MEDS: FAMOTIDINE 20 MG/2 ML VIAL IV SCH ×2 (08:12→21:24)
[2019-10-14] MEDS: HYDROcodone/APAP 5-325MG 1 EACH TAB PO PRN ×2 (13:16→21:23)
--- NOTE | 2019-10-14 14:04 | P.PN ---
Subjective Progress Note Date: 10/14/19 CHIEF COMPLAINT: Incarcerated incisional hernia HISTORY OF PRESENT ILLNESS: Patient is status post repair of incarcerated incisional hernia. Postop day #1. Patient examined at the bedside. Patient reports he was having some urinary retention and required straight catheterization earlier today. He reports abdominal pain and discomfort, relieved with current pain regimen. Tolerating clear liquid diet. No nausea or vomiting. PHYSICAL EXAM: VITAL SIGNS: Reviewed. GENERAL: Well-developed in no acute distress. HEENT: No sclera icterus. Extraocular movements grossly intact. Moist buccal mucosa. Head is atraumatic, normocephalic. ABDOMEN: Soft. Nondistended. Appropriate surgical tenderness. Dressing clean dry and intact. PROSPER drain with sanguinous drainage NEUROLOGIC: Alert and oriented. Cranial nerves II through XII grossly intact. ASSESSMENT: 1. Status post repair of incarcerated incisional hernia PLAN: -Management of urinary retention per internal medicine -Monitor drainage from PROSPER drain -Advance diet to full liquids -Activity as tolerated -Pain control Nurse practitioner note has been reviewed by physician. Signing provider agrees with the documented findings, assessment, and plan of care. Objective - Vital Signs Vital signs: Vital Signs Temp 98.8 F 10/14/19 11:47 Pulse 75 10/14/19 11:47 Resp 17 10/14/19 11:47 BP 152/81 10/14/19 11:47 Pulse Ox 96 10/14/19 11:47 Intake & Output 10/13/19 10/14/19 10/14/19 18:59 06:59 18:59 Intake Total 1550 2080 600 Output Total 170 50 Balance 1380 2030 600 Weight 67.3 kg Intake: IV 1550 Intake, IV Titration 900 600 Amount Lactated Ringers 1,000 ml 900 600 @ 75 mls/hr IV .[id number] ONE Rx#:[id number] Oral 1180 Output: Drainage 120 50 Abdomen 120 50 Estimated Blood Loss 50 Other: Voiding Method Toilet Toilet Urinal # Bowel Movements 0 - Labs CBC & Chem 7: 10/13/19 09:15 10/13/19 09:15
[2019-10-14] MEDS ORDERED: TAMSULOSIN 0.4 MG CAP.ER.24H PO SCH (18:30)
[2019-10-14 21:19] VITALS: RESP 18
[2019-10-15] MEDS: HYDROcodone/APAP 5-325MG 1 EACH TAB PO PRN (04:59)
[2019-10-15] MEDS: LACTATED RINGERS 1,000 ML IV SCH ×2 (05:34→07:28)
[2019-10-15 07:01] LABS: Appearance,Urine Clear (Clear); Bilirubin,Urine Negative (Negative); Blood,Urine Negative (Negative); Color,Urine Yellow; Glucose,Urine (UA) Negative (Negative); Ketones,Urine Negative (Negative); Leukocyte Esterase,Urine Negative (Negative); Nitrite,Urine Negative (Negative); Protein,Urine Trace (Negative); Specific Gravity,Urine 1.023 (1.001-1.035); Urobilinogen,Urine <2.0 mg/dL (<2.0)
[2019-10-15] MEDS: metFORMIN 500 MG TAB PO SCH (07:28)
[2019-10-15] MEDS: ENOXAPARIN 40 MG/0.4 ML SYRINGE SQ SCH (07:28)
[2019-10-15] MEDS: GABAPENTIN 300 MG CAP PO SCH (07:28)
[2019-10-15] MEDS: TAMSULOSIN 0.4 MG CAP.ER.24H PO SCH (07:28)
[2019-10-15] MEDS: FAMOTIDINE 20 MG/2 ML VIAL IV SCH (07:28)
[2019-10-15] MEDS: METOPROLOL TARTRATE 50 MG TAB PO SCH (07:28)
--- NOTE | 2019-10-15 09:07 | P.PN ---
Subjective This is a pleasant 79 years old male with past medical history of diabetes mellitus, hypertension, GERD, bradycardia. Benign prostatic hypertrophy and he follow-up with Dr. Alvarez for that. Also he is a patient of Dr. Ng and Dr. Mckeon as his primary doctor. He presents for incarcerated incisional hernia secondary to expectorate laparotomy, slightly progressive over 4 months. He is a status post incisional hernia repair and today is postoperative day #1. This morning he is fully awake and oriented, complaining from pain at surgical site. He ate little of his breakfast with no nausea vomiting. He is passing gases but no bowel movementOn discharge, the patient has been prescribed yesterday he had urinary retention with bladder scan more than 600 mL and patient has to be straight cathed, no Peter catheter was inserted, he is already on Flomax but has not restarted, we will going to start and increase the dose from daily to twice a day. Patient follows with Dr. Vaz and he sees him every year to check on his enlarged prostate, his comments appointment isn't this drawn and patient was instructed and encouraged to call and make earlier appointment within 1-2 weeks and he agrees Vitals are stable, WBC is within normal limits, electrolytes and creatinine normal. Glucose 125, coronary virus nondetected. 10/15/2019 Patient is awake, is a regular diet with no nausea vomiting, abdominal pain is minimal with movement only, but patient hasn't passed gas or bowel movement. Patient states that he did straight cath only once, and his voiding with no difficulty since then. He is hemodynamically stable. Urine analysis is negative and no suspicious of infection. Patient remains on IV fluids with no antibiotic Review of systems CONSTITUTIONAL: No fever, no malaise, no fatigue. HEENT: No recent visual problems or hearing problems. Denied any sore throat. CARDIOVASCULAR: No orthopnea, PND, no palpitations, no syncope. PULMONARY: No shortness of breath, no cough, no hemoptysis. NEUROLOGICAL: No headaches, no weakness, no numbness. HEMATOLOGICAL: Denies any bleeding or petechiae. GENITOURINARY: Denies any burning micturition, frequency, or urgency. MUSCULOSKELETAL/RHEUMATOLOGICAL: Denies any joint pain, swelling, or any muscle pain. ENDOCRINE: Denies any polyuria or polydipsia. Active Medications Generic Name Dose Route Start Last Admin Trade Name Freq PRN Reason Stop Dose Admin Acetaminophen 650 mg 10/13/19 11:59 Tylenol Tab PO Q6HR PRN Mild Pain or Fever >= 100.5 Hydrocodone Bitart/Acetaminophen 2 each 10/13/19 11:59 10/15/19 04:59 [place] 5-325 PO 2 each Q6HR PRN Administration Moderate to Severe Pain Enoxaparin Sodium 40 mg 10/14/19 09:00 10/15/19 07:28 Lovenox SQ 40 mg DAILY RAJ Administration Famotidine 20 mg 10/14/19 09:00 10/15/19 07:28 Pepcid IV 20 mg Q12HR RAJ Administration Gabapentin 300 mg 10/13/19 22:00 10/15/19 07:28 Neurontin PO 300 mg TID RAJ Administration Hydromorphone HCl 0.5 mg 10/13/19 11:59 10/14/19 11:32 Dilaudid IVP 0.5 mg Q3HR PRN Administration Moderate to Severe Pain Lactated Ringer's 1,000 mls @ 20 mls/hr 10/13/19 06:04 10/15/19 07:28 Lactated Ringers IV 20 mls/hr .Q24H RAJ Administration Lidocaine HCl 0.1 ml 10/13/19 06:04 10/13/19 09:35 .Xylocaine 1% Inj (10mg/Ml) For Iv Start INTRADERMA 0.1 ml PER PROTOCOL PRN Administration IV Start Metformin HCl 500 mg 10/13/19 17:30 10/15/19 07:28 Glucophage PO 500 mg AC-BID RAJ Administration Metoprolol Tartrate 50 mg 10/13/19 21:00 10/15/19 07:28 Lopressor PO 50 mg BID RAJ Administration Naloxone HCl 0.2 mg 10/13/19 11:59 Narcan IV Q2M PRN Opioid Reversal Ondansetron HCl 4 mg 10/13/19 11:59 10/14/19 01:38 Zofran IVP 4 mg Q8HR PRN Administration Nausea And Vomiting Tamsulosin HCl 0.4 mg 10/14/19 08:30 10/15/19 07:28 Flomax PO 0.4 mg [id number] RAJ Administration Tamsulosin HCl 0.4 mg 10/14/19 18:30 10/14/19 17:43 Flomax PO 0.4 mg PC-SUPPER RAJ Administration Objective - Vital Signs Vital signs: Vital Signs Temp 99.3 F 10/14/19 21:00 Pulse 88 10/15/19 05:00 Resp 18 10/15/19 05:00 BP 161/84 10/15/19 05:00 Pulse Ox 94 L 10/15/19 05:00 Intake & Output 10/14/19 10/15/19 10/15/19 18:59 06:59 18:59 Intake Total 600 200 Output Total 261 Balance 339 200 Intake: IV 200 Lactated Ringers 1,000 ml 200 @ 20 mls/hr IV .Q24H RAJ Rx#:[id number] Intake, IV Titration 600 Amount Lactated Ringers 1,000 ml 600 @ 75 mls/hr IV .[id number] ONE Rx#:[id number] Output: Urine 200 Post Void Residual 61 Other: Voiding Method Toilet Toilet Urinal Urinal # Voids 1 # Bowel Movements 0 - Exam GENERAL: The patient is alert and oriented x3, not in any acute distress. Well developed, well nourished. HEENT: Pupils are round and equally reacting to light. EOMI. No scleral icterus. No conjunctival pallor. Normocephalic, atraumatic. No pharyngeal erythema. No thyromegaly. CARDIOVASCULAR: S1 and S2 present. No murmurs, rubs, or gallops. PULMONARY: Chest is clear to auscultation, no wheezing or crackles. -ABDOMEN: Soft, nontender, nondistended, normoactive bowel sounds. No palpable organomegaly. Midline surgical wound was dressing MUSCULOSKELETAL: No joint swelling or deformity. EXTREMITIES: No cyanosis, clubbing, or pedal edema. NEUROLOGICAL: Gross neurological examination did not reveal any focal deficits. SKIN: No rashes. No petechiae - Labs CBC & Chem 7: 10/13/19 09:15 10/13/19 09:15 Labs: Abnormal Lab Results - Last 24 Hours (Table) 10/15/19 Range/Units 06:53 Urine Protein Trace H (Negative) Assessment and Plan Assessment: Incarcerated incisional hernia, status post repair Urinary retention secondary to BPH Hypertension Diabetes mellitus GERD History of bradycardia Plan: This is a pleasant 79 years old male who presents for incisional hernia repair. Continue with postop care. Pain management. Restart Flomax as twice a day, patient was instructed to follow up with Dr. Vaz upon discharge in 1-2 weeks and he agrees. Labs and medication were reviewed.. Continue same treatment. Continue with symptomatic treatment. Resume home medication. Monitor lytes and vitals. DVT and GI prophylaxis. Further recommendations of the clinical course of the patient DVT prophylaxis: Subcutaneous Lovenox GI Prophylaxis: Amber Thank you for consulting us
--- NOTE | 2019-10-15 11:21 | P.DS ---
Providers Date of admission: 10/14/19 13:42 Expected date of discharge: 10/15/19 Attending physician: Karan Adams Consults: 10/13/19 12:01 Consult Physician Routine Consulting Provider: Jena Lawrence Consult Reason/Comments: Medical management Do you want consulting provider notified?: Yes Primary care physician: Gopal Ng Hospital Course: 79-year-old male who underwent repair of incarcerated incisional hernia with Dr. Adams. Patient is doing well postoperatively without any immediate complications. Pain is controlled on oral medications. Vital signs are stable. He is stable for discharge home today with PROSPER drain. Please see EMR for further hospital course details. Discharge Diagnosis: 1. Status post repair of incarcerated incisional hernia Nurse practitioner note has been reviewed by physician. Signing provider agrees with the documented findings, assessment, and plan of care. Plan - Discharge Summary Discharge Rx Participant: Yes New Discharge Prescriptions: New Hydrocodone/Acetaminophen [[place] 5-325] 1 tab PO Q6HR PRN #10 tab PRN Reason: Pain No Action metFORMIN HCL 500 mg PO BID Metoprolol Tartrate [Lopressor] 50 mg PO BID Gabapentin [Neurontin] 300 mg PO TID Cyanocobalamin (Vitamin B-12) [Vitamin B-12] 1,000 mcg PO DAILY Discharge Medication List metFORMIN HCL 500 mg PO BID 04/07/19 [History] Cyanocobalamin (Vitamin B-12) [Vitamin B-12] 1,000 mcg PO DAILY 10/10/19 [History] Gabapentin [Neurontin] 300 mg PO TID 10/10/19 [History] Metoprolol Tartrate [Lopressor] 50 mg PO BID 10/10/19 [History] Hydrocodone/Acetaminophen [[place] 5-325] 1 tab PO Q6HR PRN #10 tab 10/15/19 [Rx] Follow up Appointment(s)/Referral(s): Gopal Ng MD [Primary Care Provider] - 1 Week Shahram Hutton MD [STAFF PHYSICIAN] - 2 Weeks (Your urologist for urinary retention ) Karan Adams MD [STAFF PHYSICIAN] - 1 Week Activity/Diet/Wound Care/Special Instructions: No driving while taking [place] No lifting over 10 pounds You may shower. No soaking or tub baths Very light activity until you are reevaluated at your follow up appointment with your surgeon Armando/benito CHENG drain 2-3 times a day Keep a log of PROSPER drain output and bring with you to your follow-up appointment
[2019-10-15 11:48] VITALS: BP 145/78; PULSE 79; TEMP 98.4
== END 2019-10-15 12:40 | disposition home or self-care (01) ==
LOC: OR 08:22 → 5NMEDONC 13:30 → OR 10-14 13:42
PROVIDERS: ADMIT Surgery; ATTEND Surgery
DX: K43.0 Incisional hernia with obstruction, without gangrene (principal); E11.9 Type 2 diabetes mellitus without complications; K21.9 Gastro-esophageal reflux disease without esophagitis; I10 Essential (primary) hypertension; M19.90 Unspecified osteoarthritis, unspecified site; Z98.890 Other specified postprocedural states; Z82.49 Family history of ischemic heart disease and other diseases of the circulatory system; R00.1 Bradycardia, unspecified; N40.0 Benign prostatic hyperplasia without lower urinary tract symptoms; Z79.84 Long term (current) use of oral hypoglycemic drugs; Z79.899 Other long term (current) drug therapy
CPT/HCPCS: 97162; 80048; 85027; 81003; 87635; 49561; G0378 ×2; J2250; J1644; J1100; J2710; J0690; J2405 ×2; J2001; J1650 ×2; J3010; J1170 ×3; J2370; J0330; J2704

== ENCOUNTER 2022-02-28 07:29 | Day surgery (SDC) | payer MEDICARE ==
[2022-02-24 11:57] VITALS: BMI 25.0
[~2022-02-28 07:29] MED LIST changes: -ACETAMINOPHEN TAB 500 MG TAB PO ONE; +ACETAMINOPHEN TAB 500 MG TAB PO PRN; -DEXAMETHASONE SOD PHOSPHATE 10 MG/ML 1 ML VIAL IV ONE; +DEXAMETHASONE SOD PHOSPHATE 4 MG/ML 1 ML VIAL IV ONE; -HEPARIN SODIUM,PORCINE 5,000 UNIT/ML 1 ML VIAL SQ ONE; +HEPARIN SODIUM,PORCINE/PF 5,000 UNIT/0.5 ML SYRINGE SQ PRN; +HYDROmorphone 0.5 MG/0.5 ML SYRINGE IVP PRN; +LACTATED RINGERS 1,000 ML IV SCH; -LIDOCAINE 1% (10MG/ML) FOR IV START INTRADERMA PRN; -MIDAZOLAM 2 MG/2 ML VIAL IV PRN; -fentaNYL (PF) 50 MCG/ML 2 ML AMP IVP PRN
[2022-02-28 08:40] LABS: Glucose,Whole Blood 158 mg/dL (70-110)
--- NOTE | 2022-02-28 09:39 | P.GSHP ---
History of Present Illness H&P Date: 02/28/22 Chief Complaint: Incisional hernia Sodium 1-year-old male who presents today for open repair of incisional hernia. Patient recurrent incisional hernia located in the epigastric area. Past Medical History Past Medical History: Diabetes Mellitus, GERD/Reflux, Hypertension, Osteoarthritis (OA) Additional Past Medical History / Comment(s): BRADYCARDIA,neuropathy History of Any Multi-Drug Resistant Organisms: None Reported Past Surgical History: Appendectomy, Hernia Repair, Orthopedic Surgery, Prostate Surgery Additional Past Surgical History / Comment(s): colonsocopy, maye knee arthroscopy, EGD with diliation, inguinal hernia repair.,. 02/14/19 Manuel fundoplasty. 02/20/19 Exploratory lap r/t perforated bowel. TURP Past Anesthesia/Blood Transfusion Reactions: No Reported Reaction Additional Past Anesthesia/Blood Transfusion Reaction / Comment(s): no hx blood transfusion Smoking Status: Never smoker - Past Family History Mother Family Medical History: No Reported History Father Family Medical History: Myocardial Infarction ([place]) Medications and Allergies Home Medications Medication Instructions Recorded Confirmed Type metFORMIN HCL 250 mg PO BID 04/07/19 02/28/22 History Gabapentin [Neurontin] 600 mg PO BID 10/10/19 02/28/22 History Metoprolol Tartrate [Lopressor] 50 mg PO BID 10/10/19 02/28/22 History Benfotiamine Supplement 1 tab PO DAILY 02/24/22 02/28/22 History Allergies Allergy/AdvReac Type Severity Reaction Status Date / Time No Known Allergies Allergy Verified 02/28/22 08:12 Surgical - Exam Vital Signs Temp Pulse Resp BP Pulse Ox 96.8 F L 52 L 16 202/90 98 02/28/22 08:17 02/28/22 08:17 02/28/22 08:17 02/28/22 08:17 02/28/22 08:17 - General well developed, well nourished, no distress - Eyes PERRL - ENT normal pinna - Neck no masses - Respiratory normal expansion - Cardiovascular Rhythm: regular - Abdomen 10 cm hernia located epigastric area Abdomen: soft, non tender Results - Labs Abnormal Lab Results - Last 24 Hours (Table) 02/28/22 Range/Units 08:32 POC Glucose (mg/dL) 158 H (70-110) mg/dL Assessment and Plan Assessment: Incisional hernia. We'll perform open repair.
[2022-02-28] MEDS ORDERED: MIDAZOLAM 2 MG/2 ML VIAL IV ONE (09:51)
[2022-02-28] MEDS ORDERED: BUPIVACAINE (PF) 0.25% 30 ML VIAL SQ ONE ×2 (09:53→10:46)
[2022-02-28] MEDS ORDERED: fentaNYL (PF) 50 MCG/ML 2 ML AMP ONE (09:57)
[2022-02-28] MEDS ORDERED: LABETALOL 5 MG/ML VIAL MDV ONE (09:57)
[2022-02-28] MEDS ORDERED: SUCCINYLCHOLINE CHLORIDE 200 MG/10 ML VIAL IV ONE (09:57)
[2022-02-28] MEDS ORDERED: PROPOFOL 10 MG/ML 20 ML VIAL IV ONE (09:57)
[2022-02-28] MEDS ORDERED: NEOSTIGMINE 1 MG/ML 10 ML VIAL ONE (09:57)
[2022-02-28] MEDS ORDERED: ePHEDrine 50 MG/ML 1 ML VIAL ONE (09:57)
[2022-02-28] MEDS ORDERED: LIDOCAINE 2% INJ 20 MG/ML (2 ML VIAL) ONE (09:57)
[2022-02-28] MEDS ORDERED: ROCURONIUM 10 MG/ML (5 ML VIAL) IV ONE (09:57)
[2022-02-28] MEDS ORDERED: GLYCOPYRROLATE 0.2 MG/ML 2 ML VIAL ONE (09:57)
[2022-02-28] MEDS ORDERED: DEXAMETHASONE SOD PHOSPHATE 10 MG/ML 1 ML VIAL ONE (10:28)
[2022-02-28] MEDS ORDERED: ROPIVACAINE 5 MG/ML 30 ML VIAL ONE (10:28)
[2022-02-28] MEDS ORDERED: LACTATED RINGERS 1,000 ML IV ONE (10:33)
--- NOTE | 2022-02-28 11:07 | P.OP ---
Date of Procedure: 02/28/22 Preoperative Diagnosis: Recurrent incisional hernia Postoperative Diagnosis: Recurrent incisional hernia Procedure(s) Performed: Recurrent incisional hernia with mesh. Transversus abdominis plane block Anesthesia: ANAND Surgeon: Karan Adams Estimated Blood Loss (ml): 5 Pathology: none sent Condition: stable Disposition: PACU Description of Procedure: The patient's placed on the operating table in the supine position. He received general endotracheal tube. His abdomen was prepped and draped usual sterile fashion. The patient had an incisional hernia located near the epigastric area. Skin was incised over the hernia. Using left cautery subcutaneous tissues were divided. The hernia sac was dissected free. The hernia sac was inverted. A transverse subcostal block was performed around the hernia using 1% local Xylocaine. Then using. 0 Ethibond suture the hernia defect was closed. A 3 x 6" piece of Prolene mesh was placed over top the repair and secured with secure strap tacker. A PROSPER drain is placed on top of the repair and brought through separate stab site. Renetta's fascia close [place]. The skin was closed interrupted 3-0 Monocryl suture. Dermabond was applied.
[2022-02-28 11:29] VITALS: TEMP 97.2
[2022-02-28] MEDS ORDERED: hydrALAZINE HCL 20 MG/ML 1 ML VIAL IVP ONE (11:42)
[2022-02-28 11:56] VITALS: RESP 16
[2022-02-28 12:24] LABS: Glucose,Whole Blood 188 mg/dL (70-110)
[2022-02-28 13:38] VITALS: BP 134/66; PULSE 81
--- NOTE | 2022-03-01 12:34 | P.ANPRN ---
Procedure Note - Anesthesia - Nerve Block Performed Bilateral Transversus Abdominis Single Time Out Performed: Yes Date of Procedure: 02/28/22 Procedure Start Time: :50 Procedure Stop Time: :56 Location of Patient: PreOp Indication: Acute Post-Operative Pain, Requested by Surgeon Sedation Type: Sedate with meaningful contact maintained Preparation: Sterile Prep Position: Supine Needle Types: Pajunk Needle Gauge: 21 Ultrasound used to visualize needle placement: Yes Ultrasound used to observe medication spread: Yes Blood Aspirated: No Pain Paresthesia on Injection Noted: No Resistance on Injection: Normal Image Stored and Saved: Yes Events: Uneventful and Well Tolerated (ropi .5% 20cc plus dexamethasone 4mg given bilaterally)
== END 2022-02-28 14:17 | disposition home or self-care (01) ==
LOC: OR 07:29
PROVIDERS: ATTEND Surgery
DX: K43.2 Incisional hernia without obstruction or gangrene (principal); K21.9 Gastro-esophageal reflux disease without esophagitis; E11.40 Type 2 diabetes mellitus with diabetic neuropathy, unspecified; I10 Essential (primary) hypertension; M19.90 Unspecified osteoarthritis, unspecified site; R00.1 Bradycardia, unspecified; Z90.49 Acquired absence of other specified parts of digestive tract; Z98.890 Other specified postprocedural states; Z82.49 Family history of ischemic heart disease and other diseases of the circulatory system; Z79.84 Long term (current) use of oral hypoglycemic drugs; Z79.899 Other long term (current) drug therapy
CPT/HCPCS: 64488; 49565; 49568; C1781; J2250; J0330; J0360; J1100; J2710; J0690; J2405; J3010; J2704; J1170; J1644; J2001

== ENCOUNTER 2022-09-11 10:45 | Day surgery (SDC) | payer MEDICARE ==
[2022-09-06 11:54] VITALS: BMI 26.6
[~2022-09-11 10:45] MED LIST changes: -ACETAMINOPHEN TAB 500 MG TAB PO PRN; -DEXAMETHASONE SOD PHOSPHATE 4 MG/ML 1 ML VIAL IV ONE; -HEPARIN SODIUM,PORCINE/PF 5,000 UNIT/0.5 ML SYRINGE SQ PRN; -HYDROmorphone 0.5 MG/0.5 ML SYRINGE IVP PRN; +LIDOCAINE 1% (10MG/ML) FOR IV START INTRADERMA PRN; -ONDANSETRON 4 MG/2 ML VIAL IVP ONE
[2022-09-11 11:11] VITALS: RESP 16; TEMP 97.3
[2022-09-11 11:27] LABS: Glucose,Whole Blood 126 mg/dL (70-110)
[2022-09-11] MEDS ORDERED: LIDOCAINE 2% INJ 20 MG/ML (2 ML VIAL) ONE (11:48)
[2022-09-11] MEDS ORDERED: PROPOFOL 10 MG/ML 20 ML VIAL IV ONE (11:48)
--- NOTE | 2022-09-11 12:03 | P.OP ---
Date of Procedure: 09/11/22 Preoperative Diagnosis: Colitis Postoperative Diagnosis: Diverticulosis Procedure(s) Performed: Colonoscopy Anesthesia: MAC Surgeon: Karan Adams Pathology: none sent Condition: stable Disposition: PACU Description of Procedure: The patient's placed on the endoscopy table in the lateral position. He r eceived IV sedation. The digital rectal exam was performed which revealed no abnormalities. The colonoscope was then placed patient anus and passed throughout the entire colon. Ileocecal valve was visualized. The cecum, ascending and transverse colon appeared normal. In the descending sigmoid colon there was moderate diverticular changes. Scope summer back the rectum and this appeared normal. Scope withdrawn for patient.
[2022-09-11] MEDS ORDERED: hydrALAZINE HCL 20 MG/ML 1 ML VIAL ONE (12:32)
[2022-09-11] MEDS ORDERED: hydrALAZINE HCL 20 MG/ML 1 ML VIAL IV ONE (12:34)
[2022-09-11 13:04] VITALS: BP 174/87; PULSE 76
== END 2022-09-11 13:13 | disposition home or self-care (01) ==
LOC: ORWHC2ENDO 10:45
PROVIDERS: ATTEND Surgery
DX: K57.30 Diverticulosis of large intestine without perforation or abscess without bleeding (principal); K52.9 Noninfective gastroenteritis and colitis, unspecified; I10 Essential (primary) hypertension; E11.42 Type 2 diabetes mellitus with diabetic polyneuropathy; L98.9 Disorder of the skin and subcutaneous tissue, unspecified; K42.9 Umbilical hernia without obstruction or gangrene; K40.90 Unilateral inguinal hernia, without obstruction or gangrene, not specified as recurrent; Z79.84 Long term (current) use of oral hypoglycemic drugs; Z79.899 Other long term (current) drug therapy; Z90.49 Acquired absence of other specified parts of digestive tract; Z98.890 Other specified postprocedural states
CPT/HCPCS: 45378; J0360; J2704; J2001

== ENCOUNTER 2022-10-22 11:59 | Inpatient (IN) | payer MEDICARE ==
[2022-10-22 12:12] LABS: Glucose,Whole Blood 191 mg/dL (70-110)
--- NOTE | 2022-10-22 12:15 | ED ---
General Adult HPI - General Chief complaint: Dizziness Stated complaint: Unresponsive Time Seen by Provider: 10/22/22 12:11 Source: patient, EMS Mode of arrival: EMS Limitations: no limitations - History of Present Illness Initial comments: Patient presents to the ED by ambulance for evaluation status post reported syncopal episode. Per EMS, the patient's family reported to them that the patient had a syncopal episode after coming inside from working in the garden, and reportedly sustained a left-sided head injury when he fell. Per EMS, the patient's family members are reportedly in the medical field, and they could not obtain a pulse, so they began chest compressions. Per EMS, the patient was awake and had a palpable pulse on their arrival. Patient has been in sinus bradycardia since then per EMS. Patient's blood glucose was checked and was in the 170s. Patient reportedly recently had a stroke. Patient is currently A and O 4. He tells me that he recalls working in his garden today, and he states that he then recalls not feeling well. Patient states that he does not recall what happened after that. Patient states that he currently feels generally weak and nauseated, but he denies having any other symptoms or complaints. Patient denies having any pain, fever, headache, focal numbness/weakness/neuro deficit, visual changes, speech difficulty, neck/back/extremity pain, chest pain, dyspnea, palpitations, abdominal pain, vomiting or diarrhea, bloody or melanotic stool, dysuria or urinary symptoms, or any other symptoms or complaints. - Related Data Home Medications Medication Instructions Recorded Confirmed metFORMIN HCL 500 mg PO BID 04/07/19 09/11/22 Gabapentin [Neurontin] 600 mg PO BID 10/10/19 09/11/22 Metoprolol Tartrate [Lopressor] 50 mg PO BID 10/10/19 09/11/22 Allergies Allergy/AdvReac Type Severity Reaction Status Date / Time No Known Allergies Allergy Verified 10/22/22 12:08 Review of Systems ROS Statement: Those systems with pertinent positive or pertinent negative responses have been documented in the HPI. ROS Other: All systems not noted in ROS Statement are negative. Past Medical History Past Medical History: Diabetes Mellitus, GERD/Reflux, Hypertension, Osteoarthritis (OA) Additional Past Medical History / Comment(s): BRADYCARDIA, neuropathy, stroke, History of Any Multi-Drug Resistant Organisms: None Reported Past Surgical History: Appendectomy, Hernia Repair, Orthopedic Surgery, Prostate Surgery Additional Past Surgical History / Comment(s): colonsocopy, maye knee arthroscopy, EGD with diliation, inguinal hernia repair.,. 02/14/19 Manuel fundoplasty. 02/20/19 Exploratory lap r/t perforated bowel. TURP. INCISIONAL HERNIA 02/2022 Past Anesthesia/Blood Transfusion Reactions: No Reported Reaction Additional Past Anesthesia/Blood Transfusion Reaction / Comment(s): no hx blood transfusion Past Psychological History: No Psychological Hx Reported Smoking Status: Never smoker Past Alcohol Use History: Unable to Obtain Past Drug Use History: Unable to Obtain - Past Family History Mother Family Medical History: No Reported History Father Family Medical History: Myocardial Infarction ([place]) General Exam Limitations: no limitations General appearance: alert Head exam: Present: atraumatic, normocephalic Eye exam: Present: normal appearance, PERRL, EOMI ENT exam: Present: mucous membranes moist, TM's normal bilaterally Neck exam: Present: other (Trachea is in midline; no step-off deformity). Abse nt: tenderness Respiratory exam: Present: normal lung sounds bilaterally, other (Mild left anterior chest wall ecchymosis). Absent: respiratory distress, wheezes, rales, rhonchi, stridor, chest wall tenderness Cardiovascular Exam: Present: normal rhythm, bradycardia, normal heart sounds, other (Normal radial pulses bilaterally) GI/Abdominal exam: Present: soft. Absent: distended, tenderness, guarding Extremities exam: Present: full ROM, other (Pelvis is stable and nontender; negative Homans sign bilaterally). Absent: tenderness, pedal edema, calf tenderness Back exam: Present: normal inspection. Absent: tenderness Neurological exam: Present: alert, oriented X3, CN II-XII intact. Absent: motor sensory deficit Psychiatric exam: Present: normal affect, normal mood Skin exam: Present: warm, dry, intact, normal color Course Vital Signs 10/22/22 10/22/22 10/22/22 12:00 12:08 12:09 Temperature 96.6 F L Pulse Rate 54 L 50 L Pulse Rate [ 48 L Stave Block Splitter ] Respiratory 18 16 Rate Blood Pressure 137/67 137/67 O2 Sat by Pulse 100 100 Oximetry 10/22/22 10/22/22 10/22/22 12:10 12:20 12:30 Temperature Pulse Rate 51 L 50 L 52 L Pulse Rate [ Stave Block Splitter ] Respiratory 16 20 16 Rate Blood Pressure 137/67 141/57 155/73 O2 Sat by Pulse 100 100 100 Oximetry 10/22/22 13:07 Temperature 98.0 F Pulse Rate Pulse Rate [ Stave Block Splitter ] Respiratory Rate Blood Pressure O2 Sat by Pulse Oximetry - Reevaluation(s) Reevaluation #1: 10/22/22 13:22 Case, H&P, test results and ED management thus far were discussed with Dr. Adkins. He accepts hospital admission. He agrees with cardiology and neurology consultations. He has no further recommendations at this time. 10/22/22 13:29 Patient remains alert and breathing comfortably. Patient states that his nausea has improved with ED treatment, and he denies development of any new symptoms while in the ED. Patient continues to have a normal blood pressure. Patient remains in sinus bradycardia on the teletypesetter monitor. Patient's and brother are now at bedside with the patient. Patient's reports that the patient was admitted to [facility] in [place], [place] a couple of weeks ago with symptoms of confusion/memory changes, and he was found to have a stroke on head imaging obtained there at that time. I suspect that the findings seen on the patient's head CT today are likely due to the patient's prior stroke. Will attempt to obtain medical records/imaging reports from [facility] to confirm. EKG Findings - EKG Comments: EKG Findings:: ED physician interpretation (interpreted by me): Sinus bradycardia, occasional premature supraventricular complexes, ventricular rate of 54 bpm, normal [place] and QRS intervals, slightly prolonged QTc interval of 468 ms, normal axis, nonspecific ST and T-wave abnormality Medical Decision Making - Medical Decision Making Was pt. sent in by a medical professional or institution (, PA, PRODUCT PLANNER, urgent care, hospital, or longterm...) When possible be specific @ -No Did you speak to anyone other than the patient for history (EMS, parent, family, police, friend...)? What history was obtained from this source @ -History was also obtained from EMS, as well as the patient's . Did you review nursing and triage notes (agree or disagree)? Why? @ -I reviewed and agree with nursing and triage notes Were old charts reviewed (outside hosp., previous admission, EMS record, old EKG, old radiological studies, urgent care reports/EKG's, longterm records)? Report findings @ -No old charts were reviewed Differential Diagnosis (chest pain, altered mental status, abdominal pain women, abdominal pain men, vaginal bleeding, weakness, fever, dyspnea, syncope, headache, dizziness, GI bleed, back pain, seizure, CVA, palpatations, mental health, musculoskeletal)? @ -Differential Syncope: Valvular disease, hypertrophic cardiomyopathy, tamponade, tachycardia, [place] ycardia, dysrhythmia, NC, hypovolemia, dehydration, hemorrhage, anemia, intracranial hemorrhage, seizure, hypoglycemia, stroke, headache, this is not meant to be an all-inclusive list. EKG interpreted by me (3pts min.). @ -As above X-rays interpreted by me (1pt min.). @ -Patient's chest x-ray was reviewed myself and shows no acute abnormality. I agree with the radiologist interpretation as above. Patient's pelvis x-ray was reviewed myself and shows no acute fracture or dislocation. I agree with the radiologist's interpretation as above. CT interpreted by me (1pt min.). @ -Patient's noncontrast head CT was reviewed myself and demonstrates an age indeterminate suspected acute/subacute CVA of the left inferior occipital lobe. U/S interpreted by me (1pt. min.). @ -None done What testing was considered but not performed or refused? (CT, X-rays, U/S, labs)? Why? @ -None What meds were considered but not given or refused? Why? @ -None Did you discuss the management of the patient with other professionals (professionals i.e. , PA, PRODUCT PLANNER, lab, RT, psych nurse, social work professor, marketing sales supervisor, teacher, aoc plans intelligence officer chief, assistant case manager)? Give summary @ -As above] Was smoking cessation discussed for >3mins.? @ -No Was critical care preformed (if so, how long)? @ -Yes, 50 minutes. Were there social determinants of health that impacted care today? How? (Homelessness, low income, unemployed, alcoholism, drug addiction, transportat ion, low edu. Level, literacy, decrease access to med. care, halfway, rehab)? @ -No Was there de-escalation of care discussed even if they declined (Discuss DNR or withdrawal of care, Hospice)? DNR status @ -No What co-morbidities impacted this encounter? (DM, HTN, Smoking, COPD, CAD, Cancer, CVA, ARF, Chemo, Hep., AIDS, mental health diagnosis, sleep apnea, morbid obesity)? @ -Recent CVA Was patient admitted / discharged? Hospital course, mention meds given and route, prescriptions, significant lab abnormalities, going to OR and other pertinent info. @ -Patient's lactic acid level is elevated. Patient is afebrile and without leukocytosis. Patient has no signs or symptoms of infection. Patient has been treated with IV fluids. Patient's magnesium level was also minimally low. Patient has been treated with IV magnesium sulfate. The rest of the patient's labs are fairly unremarkable, including a normal troponin at this time. Patient's head CT demonstrates a suspected acute/subacute CVA. Patient's reports that the patient was admitted to [facility] in [place], [place] a couple of weeks ago with symptoms of confusion/memory changes, and he was found to have a stroke on head imaging obtained there at that time. I suspect that the findings seen on the patient's head CT today are likely due to the patient's prior stroke. Will attempt to obtain medical records/imaging reports from [facility] to confirm. Patient has no neurological deficits at this time, and he has been treated with a dose of aspirin in the ED. Case was discussed with Dr. Adkins who has accepted hospital admission. Undiagnosed new problem with uncertain prognosis? @ -No Drug Therapy requiring intensive monitoring for toxicity (Heparin, Nitro, Insulin, Cardizem)? @ -No Were any procedures done? @ -No Diagnosis/symptom? @ -Syncope Acute, or Chronic, or Acute on Chronic? @ -Acute Uncomplicated (without systemic symptoms) or Complicated (systemic symptoms)? @ -default Side effects of treatment? @ -No Exacerbation, Progression, or Severe Exacerbation? @ -No Poses a threat to life or bodily function? How? (Chest pain, [place], NC, pneumonia, PE, COPD, DKA, ARF, appy, cholecystitis, CVA, Diverticulitis, Homicidal, Suicidal, threat to staff... and all critical care pts) @ -Yes. Although the patient is stable at this time, a life-threatening cause of syncope has not been ruled out. Diagnosis/symptom? @ -Sinus bradycardia Acute, or Chronic, or Acute on Chronic? @ -default Uncomplicated (without systemic symptoms) or Complicated (systemic symptoms)? @ -default Side effects of treatment? @ -none Exacerbation, Progression, or Severe Exacerbation] @ -no Poses a threat to life or bodily function? @ -Yes. Although the patient is stable at this time, worsening bradycardia could be life-threatening. Diagnosis/symptom? @ -Subacute CVA Acute, or Chronic, or Acute on Chronic? @ -Subacute Uncomplicated (without systemic symptoms) or Complicated (systemic symptoms)? @ -default Side effects of treatment? @ -none Exacerbation, Progression, or Severe Exacerbation @ -no Poses a threat to life or bodily function? @ -no Diagnosis/symptom? @ -Head injury Acute, or Chronic, or Acute on Chronic? @ -Acute Uncomplicated (without systemic symptoms) or Complicated (systemic symptoms)? @ -default Side effects of treatment? @ -none Exacerbation, Progression, or Severe Exacerbation @ -no Poses a threat to life or bodily function? @ -no - Lab Data Result diagrams: 10/22/22 12:16 10/22/22 12:16 Lab Results 10/22/22 10/22/22 10/22/22 Range/Units 12:11 12:16 12:16 WBC 9.8 (3.8-10.6) k/uL RBC 4.43 (4.30-5.90) m/uL Hgb 14.1 (13.0-17.5) gm/dL Hct 39.9 (39.0-53.0) % MCV 90.1 (80.0-100.0) fL MCH 31.7 (25.0-35.0) pg MCHC 35.2 (31.0-37.0) g/dL RDW 12.8 (11.5-15.5) % Plt Count 221 (150-450) k/uL MPV 7.7 Neutrophils % 71 % Lymphocytes % 19 % Monocytes % 5 % Eosinophils % 4 % Basophils % 0 % Neutrophils # 6.9 (1.3-7.7) k/uL Lymphocytes # 1.9 (1.0-4.8) k/uL Monocytes # 0.5 (0-1.0) k/uL Eosinophils # 0.4 (0-0.7) k/uL Basophils # 0.0 (0-0.2) k/uL PT 10.4 (9.0-12.0) sec INR 1.0 (<1.2) APTT 20.1 L (22.0-30.0) sec Sodium (137-145) mmol/L Potassium (3.5-5.1) mmol/L Chloride (98-107) mmol/L Carbon Dioxide (22-30) mmol/L Anion Gap mmol/L BUN (9-20) mg/dL Creatinine (0.66-1.25) mg/dL Est GFR (CKD-EPI)AfAm (>60 ml/min/1.73 sqM) Est GFR (CKD-EPI)NonAf (>60 ml/min/1.73 sqM) Glucose (74-99) mg/dL POC Glucose (mg/dL) 191 H (70-110) mg/dL POC Glu Heavy Equipment Service Manager ID Cheryle Riojas Plasma Lactic Acid Timothy (0.7-2.0) mmol/L Calcium (8.4-10.2) mg/dL Magnesium (1.6-2.3) mg/dL Total Bilirubin (0.2-1.3) mg/dL AST (17-59) U/L ALT (4-49) U/L Alkaline Phosphatase (38-126) U/L Troponin I (0.000-0.034) ng/mL NT-Pro-B Natriuret Pep pg/mL Total Protein (6.3-8.2) g/dL Albumin (3.5-5.0) g/dL 10/22/22 10/22/22 10/22/22 Range/Units 12:16 12:16 12:16 WBC (3.8-10.6) k/uL RBC (4.30-5.90) m/uL Hgb (13.0-17.5) gm/dL Hct (39.0-53.0) % MCV (80.0-100.0) fL MCH (25.0-35.0) pg MCHC (31.0-37.0) g/dL RDW (11.5-15.5) % Plt Count (150-450) k/uL MPV Neutrophils % % Lymphocytes % % Monocytes % % Eosinophils % % Basophils % % Neutrophils # (1.3-7.7) k/uL Lymphocytes # (1.0-4.8) k/uL Monocytes # (0-1.0) k/uL Eosinophils # (0-0.7) k/uL Basophils # (0-0.2) k/uL PT (9.0-12.0) sec INR (<1.2) APTT (22.0-30.0) sec Sodium 136 L (137-145) mmol/L Potassium 3.5 (3.5-5.1) mmol/L Chloride 104 (98-107) mmol/L Carbon Dioxide 16 L (22-30) mmol/L Anion Gap 16 mmol/L BUN 20 (9-20) mg/dL Creatinine 1.15 (0.66-1.25) mg/dL Est GFR (CKD-EPI)AfAm 69 (>60 ml/min/1.73 sqM) Est GFR (CKD-EPI)NonAf 59 (>60 ml/min/1.73 sqM) Glucose 217 H (74-99) mg/dL POC Glucose (mg/dL) (70-110) mg/dL POC Glu Heavy Equipment Service Manager ID Plasma Lactic Acid Timothy (0.7-2.0) mmol/L Calcium 9.0 (8.4-10.2) mg/dL Magnesium 1.5 L (1.6-2.3) mg/dL Total Bilirubin 0.8 (0.2-1.3) mg/dL AST 24 (17-59) U/L ALT 21 (4-49) U/L Alkaline Phosphatase 77 (38-126) U/L Troponin I <0.012 (0.000-0.034) ng/mL NT-Pro-B Natriuret Pep 207 pg/mL Total Protein 6.4 (6.3-8.2) g/dL Albumin 3.8 (3.5-5.0) g/dL 10/22/22 Range/Units 12:16 WBC (3.8-10.6) k/uL RBC (4.30-5.90) m/uL Hgb (13.0-17.5) gm/dL Hct (39.0-53.0) % MCV (80.0-100.0) fL MCH (25.0-35.0) pg MCHC (31.0-37.0) g/dL RDW (11.5-15.5) % Plt Count (150-450) k/uL MPV Neutrophils % % Lymphocytes % % Monocytes % % Eosinophils % % Basophils % % Neutrophils # (1.3-7.7) k/uL Lymphocytes # (1.0-4.8) k/uL Monocytes # (0-1.0) k/uL Eosinophils # (0-0.7) k/uL Basophils # (0-0.2) k/uL PT (9.0-12.0) sec INR (<1.2) APTT (22.0-30.0) sec Sodium (137-145) mmol/L Potassium (3.5-5.1) mmol/L Chloride (98-107) mmol/L Carbon Dioxide (22-30) mmol/L Anion Gap mmol/L BUN (9-20) mg/dL Creatinine (0.66-1.25) mg/dL Est GFR (CKD-EPI)AfAm (>60 ml/min/1.73 sqM) Est GFR (CKD-EPI)NonAf (>60 ml/min/1.73 sqM) Glucose (74-99) mg/dL POC Glucose (mg/dL) (70-110) mg/dL POC Glu Heavy Equipment Service Manager ID Plasma Lactic Acid Timothy 5.6 H* (0.7-2.0) mmol/L Calcium (8.4-10.2) mg/dL Magnesium (1.6-2.3) mg/dL Total Bilirubin (0.2-1.3) mg/dL AST (17-59) U/L ALT (4-49) U/L Alkaline Phosphatase (38-126) U/L Troponin I (0.000-0.034) ng/mL NT-Pro-B Natriuret Pep pg/mL Total Protein (6.3-8.2) g/dL Albumin (3.5-5.0) g/dL - Radiology Data Chest x-ray: No acute cardiopulmonary disease/process. Pelvis x-ray: 1. No acute osseous pathology. 2. Bilateral moderate osteoarthrosis changes. Noncontrast head/cervical spine CT: 1. Age indeterminate suspected acute/subacute CVA of the left inferior occipital lobe, new from prior. Consider confirmation with MRI. 2. No evidence of cervical spine fracture. 3. Moderate multilevel degenerative disc disease. Critical Care Time Critical Care Time: Yes Total Critical Care Time: 50 Disposition Clinical Impression: Syncope, Sinus bradycardia, Head injury, CVA (cerebral vascular accident), Hypomagnesemia Disposition: ADMITTED IP TO [facility] Condition: Stable Is patient prescribed a controlled substance at d/c from ED?: No Referrals: None,Stated [REFERRING] - 1-2 days Time of Disposition: 13:24
[2022-10-22] MEDS ORDERED: SODIUM CHLORIDE 0.9% 500 ML 500 ML IV STA (12:16)
[2022-10-22 12:22] LABS: Basophils % (A) 0 %; Eosinophils # (A) 0.4 k/uL (0-0.7); Eosinophils % (A) 4 %; HCT 39.9 % (39.0-53.0); HGB 14.1 gm/dL (13.0-17.5); Lymphocytes # (A) 1.9 k/uL (1.0-4.8); Lymphocytes % (A) 19 %; MCH 31.7 pg (25.0-35.0); MCHC 35.2 g/dL (31.0-37.0); MCV 90.1 fL (80.0-100.0); Mean Platelet Volume 7.7; Monocytes # (A) 0.5 k/uL (0-1.0); Monocytes % (A) 5 %; Neutrophils # (A) 6.9 k/uL (1.3-7.7); Neutrophils % (A) 71 %; Platelet Count 221 k/uL (150-450); RBC 4.43 m/uL (4.30-5.90); RDW 12.8 % (11.5-15.5); WBC 9.8 k/uL (3.8-10.6)
[2022-10-22] MEDS ORDERED: ONDANSETRON 4 MG/2 ML VIAL IVP STA ×2 (12:28→12:52)
[2022-10-22 12:32] LABS: Albumin 3.8 g/dL (3.5-5.0); Magnesium 1.5 mg/dL (1.6-2.3); Potassium 3.5 mmol/L (3.5-5.1); Total Bilirubin 0.8 mg/dL (0.2-1.3); Total Protein 6.4 g/dL (6.3-8.2)
[2022-10-22 12:43] LABS: Prothrombin Time 10.4 sec (9.0-12.0)
[2022-10-22 12:47] LABS: Partial Thromboplastin Time 20.1 sec (22.0-30.0)
[2022-10-22] MEDS ORDERED: SODIUM CHLORIDE 0.9% 500 ML 500 ML IV ONE (12:52)
--- NOTE | 2022-10-22 12:57 | XR ---
EXAMINATION TYPE: XR pelvis AP view DATE OF EXAM: 10/22/2022 12:42 PM INDICATION: Patient age:Male; 82 years old; Reason for study: fall; COMPARISON: None TECHNIQUE: The pelvis was examined in a single projection. FINDINGS: There is no evidence of fracture or dislocation. There is no soft tissue abnormality. No a bnormal calcifications are present. Multilevel degenerative changes of the lower spine. Generation ch anges acetabulum bilaterally. IMPRESSION: 1. No acute osseous pathology. 2. Bilateral moderate osteoarthrosis changes.
--- NOTE | 2022-10-22 12:58 | XR ---
EXAMINATION TYPE: XR chest 1V portable DATE OF EXAM: 10/22/2022 12:42 PM COMPARISON: Chest radiographs from 02/21/2019 TECHNIQUE: XR chest 1V portable Frontal view of the chest. CLINICAL INDICATION:Male, 82 years old with history of syncope; FINDINGS: Lungs/Pleura: There is no evidence of pleural effusion, focal consolidation, or pneumothorax. Pulmonary vascularity: Unremarkable. Heart/mediastinum: Cardiomediastinal silhouette is enlarged and stable. A loop recorder projects over the left thorax over the heart. Musculoskeletal: No acute osseous pathology. IMPRESSION: No acute cardiopulmonary disease/process.
--- NOTE | 2022-10-22 13:06 | CT ---
EXAMINATION TYPE: CT brain cspine wo con CT DLP: 1697.2 mGycm, Automated exposure control for dose reduction was used. DATE OF EXAM: 10/22/2022 12:57 PM COMPARISON: None. CLINICAL INDICATION:Male, 82 years old with history of syncope; Syncope. TECHNIQUE: Brain: Multiple axial CT images of the brain were obtained without IV contrast. Cspine: Axial CT images from the skull base to the inferior aspect of T2 we obtained without intraven ous contrast. Coronal and sagittal reformatted images were also reviewed. FINDINGS: Brain: Extra-axial spaces: No abnormal extra-axial fluid collections. Ventricular system: Within normal limits Cerebral parenchyma: No acute intraparenchymal hemorrhage or mass effect. Loss of roberts-white differen tiation within bowel in the left inferiore occipital lobe. Cerebellum: Unremarkable. Mass effect: No evidence of midline shift. Intracranial vasculature: Atherosclerotic calcifications of the intracranial vessels. Soft tissues: Normal. Calvarium/osseous structures: No depressed skull fracture. Paranasal sinuses and mastoid air cells: Mild scattered mucosal thickening and or secretions. Visualized orbits: Orbital contents are intact. Cervical spine: Fracture: None. Osseous structures: Multilevel degenerative disc disease changes with endplate spurring and disc oste ophyte complex's. Vertebral alignment: Within normal limits. Spinal canal/Neural Foramina: Disc osteophyte complexes at C5-C6 and C6-C7 with at least mild spinal canal stenosis. No evidence for significant neural foraminal stenosis. Neck soft tissues: Prevertebral soft tissues are within normal limits. Other: The airway is patent. The lung apices are clear. Calcification's of the nuchal ligament. Ather osclerosis of the carotid bifurcations. IMPRESSION: 1. Age indeterminate suspected Acute/subacute CVA of the left inferior occipital lobe, new from prio r. Consider confirmation with MRI. 2. No evidence of cervical spine fracture. 3. Moderate multilevel degenerative disc disease.
[2022-10-22] MEDS: CALCIUM GLUCONATE IN NACL 1 GM in SALINE 1 100ML.BAG IVPB ONE ×2 (13:09→13:45)
[2022-10-22] MEDS ORDERED: MAGNESIUM SULFATE-D5W PMX 1 GM in DEXTROSE/WATER 1 100ML.BAG IVPB ONE (13:22)
[2022-10-22] MEDS ORDERED: NALOXONE 0.4 MG/ML 1 ML VIAL IV PRN (13:24)
[2022-10-22] MEDS ORDERED: ASPIRIN 81 MG PO STA (13:40)
[2022-10-22] MEDS: SODIUM CHLORIDE 0.9% 1,000 ML IV SCH (13:54)
[2022-10-22 16:50] LABS: Glucose,Whole Blood 135 mg/dL (70-110)
[2022-10-22] MEDS: CLOPIDOGREL 75 MG TAB PO SCH (18:39)
[2022-10-22] MEDS: HEPARIN SODIUM,PORCINE/PF 5,000 UNIT/0.5 ML SYRINGE SQ SCH (20:09)
[2022-10-22] MEDS: ATORVASTATIN 20 MG TAB PO SCH (20:09)
[2022-10-22] MEDS: GABAPENTIN 300 MG CAP PO SCH (20:09)
[2022-10-22] MEDS: metFORMIN 500 MG TAB PO SCH (20:10)
[2022-10-22 20:12] LABS: Glucose,Whole Blood 253 mg/dL (70-110)
--- NOTE | 2022-10-23 01:06 | P.CNNES ---
History of Present Illness Consult date: 10/22/22 Requesting physician: Gonsalo Louis Reason for Consult: Acute/subacute CVA History of Present Illness: Patient is a 82-year-old right-handed male, who recently suffered from an acute stroke treated in [facility], who came to the hospital by ambulance today at 12 PM for possible stroke/TIA. Patient states that 2 weeks ago on 10/04/2022 he developed acute short-term memory issues, balance issues, could not walk straight and blurred vision. He did not have any focal weakness, numbness, facial droop or slurred speech. He stayed home, until he went to the hospital in [facility] on 10/07/2022. He was diagnosed with an acute stroke. Patient did undergo MRI of the brain, appears also had NOHEMI performed, and loop recorder was placed. Patient was discharged home on aspirin 162 mg on 10/10/2022. Patient was not taking any antiplatelet medication prior to this stroke. He continue to have short-term memory issues after discharge. Patient states that in the past when he had hernia surgery, he went into atrial fibrillation. On review of records, his EKG from 02/18/2019 that show evidence of atrial fibrillation. He was not placed on any anticoagulation. Patient states that he did follow up in the [facility] last 10/18/2022 for loop recorder interrogation and there was no evidence of atrial fibrillation. This morning he went outside and felt dizzy. He also noticed weakness of the right arm. He came inside the house and was losing balance. He took a fall and hit his head on the kitchen table. His grandson and granddaughter saw him on the floor, picked him up and sat him on the chair. He passed out, and apparently had no pulse and they started CPR which was performed for about 25 seconds. He was unresponsive during this time. EMS flow sheet not available in the chart. Vital signs on arrival blood pressure 137/67, pulse rate 54, temperature 96.6. Blood test shows normal CBC, PT/PTT, sodium 136 potassium 3.5, normal renal functions, normal hepatic panel, troponin. Lactate was 5.6, which has not improved to 2.1. EKG showed sinus br adycardia with occasional supraventricular premature complexes. Pelvic x-ray shows no acute osseous pathology. Bilateral moderate osteoarthrosis changes. Chest x-ray showed no acute cardiopulmonary disease. CT head showed age indeterminate suspected acute/subacute CVA of the left inferior occipital lobe, new from prior. Consider confirmation with MRI. I personally reviewed CT head, agree with the findings. CT of the cervical spine showed no evidence of cervical spine fracture. Moderate multilevel degenerative disc disease. Patient has never smoked, drinks alcohol very occasionally. He does take aspirin 162 mg daily. Also on Lipitor 20 mg daily. He has diabetes for a few years, also has hypertension. Review of Systems Constitutional: Denies chills, Denies fever Eyes: bilateral blurred vision, denies diplopia, denies pain Ears: deny: decreased hearing, ear discharge Ears, nose, mouth and throat: Denies headache, Denies sore throat Cardiovascular: Denies chest pain, Denies shortness of breath Respiratory: Denies cough, Denies excessive sputum Gastrointestinal: Denies abdominal pain, Denies diarrhea, Denies nausea, Denies vomiting Musculoskeletal: Denies myalgias Integumentary: Denies pruritus, Denies rash Neurological: Reports as per HPI Psychiatric: Reports confusion, Reports memory loss Endocrine: Reports fatigue, Reports high blood sugars Hematologic/Lymphatic: Denies lymphadenopathy, Denies lymphedema Past Medical History Past Medical History: Diabetes Mellitus, GERD/Reflux, Hypertension, Osteoarthritis (OA) Additional Past Medical History / Comment(s): BRADYCARDIA, neuropathy, stroke, History of Any Multi-Drug Resistant Organisms: None Reported Past Surgical History: Appendectomy, Hernia Repair, Orthopedic Surgery, Prostate Surgery Additional Past Surgical History / Comment(s): colonsocopy, maye knee arthroscopy, EGD with diliation, inguinal hernia repair.,. 02/14/19 Manuel fundoplasty. 02/20/19 Exploratory lap r/t perforated bowel. TURP. INCISIONAL HERNIA 02/2022 Past Anesthesia/Blood Transfusion Reactions: No Reported Reaction Additional Past Anesthesia/Blood Transfusion Reaction / Comment(s): no hx blood transfusion Past Psychological History: No Psychological Hx Reported Smoking Status: Never smoker Past Alcohol Use History: Unable to Obtain Past Drug Use History: Unable to Obtain - Past Family History Mother Family Medical History: No Reported History Father Family Medical History: Myocardial Infarction (CT) Medications and Allergies Home Medications Medication Instructions Recorded Confirmed Type metFORMIN HCL 500 mg PO BID 04/07/19 10/22/22 History Metoprolol Tartrate [Lopressor] 50 mg PO BID 10/10/19 10/22/22 History Aspirin EC [Ecotrin Low Dose] 162 mg PO DAILY 10/22/22 10/22/22 History Atorvastatin [Lipitor] 20 mg PO HS 10/22/22 10/22/22 History Ergocalciferol (Vitamin D2) 1,250 mcg PO WE 10/22/22 10/22/22 History [Drisdol (50,000 Iu)] Gabapentin 600 mg PO BID 10/22/22 10/22/22 History Losartan [Cozaar] 50 mg PO DAILY 10/22/22 10/22/22 History hydroCHLOROthiazide 12.5 mg PO DAILY 10/22/22 10/22/22 History Allergies Allergy/AdvReac Type Severity Reaction Status Date / Time No Known Allergies Allergy Verified 10/22/22 13:44 Physical Examination - Vital Signs Vital Signs: Vital Signs Temp Pulse Pulse Resp BP Pulse Ox 10/22/22 14:30 60 20 146/66 100 10/22/22 14:00 54 L 20 150/69 99 10/22/22 13:30 52 L 20 145/65 100 10/22/22 13:07 98.0 F 10/22/22 12:30 52 L 16 155/73 100 10/22/22 12:20 50 L 20 141/57 100 10/22/22 12:10 51 L 16 137/67 100 10/22/22 12:09 50 L 16 137/67 100 10/22/22 12:08 48 L 10/22/22 12:00 96.6 F L 54 L 18 137/67 100 Intake and Output 10/22/22 10/22/22 10/22/22 06:59 14:59 22:59 Other: Weight 63.503 kg Patient is an elderly male, in no acute distress. Patient is alert awake oriented to time place and person. He knows it is October, but states the year is 2012. He knows that he is in [facility] in [place]. He Name of the current president, but not able to tell the name until prompted with choices. Speech and language functions are normal. Patient can name and repeat very well. No aphasia, although patient may have mild dysarthria, but patient's family believes that that is his baseline. Attention, concentration is intact and fund of knowledge is slightly limited. Detail cognitive function testing deferred. On cranial nerve examination, pupils are equal, round and reacting to light, visual madera reveal slight visual field deficit peripheral right upper quadrant. Extraocular muscles are intact with no nystagmus. patient has slight right facial asymmetry mainly with active testing. His tongue protrudes to the midline. Palatal elevation and sensation normal, hearing and shoulder shrug normal, facial sensation normal. On muscle strength testing, there is mild right pronation, but no drift. The muscle strength is normal in arms and legs distally and proximally. Deep tendon reflexes are symmetr1 all over in the arms and legs and plantars downgoing bilaterally. Sensory to touch is equal with no neglect on double simultaneous stimulation. Cerebellar function showed no ataxia for [id number] testing. No dysdiadochokinesia. No ataxia for [id number] testing on either side. Tone and bulk of muscles normal. Gait deferred.. On general examination, there is no carotid bruit or murmur, S1-S2 audible. Chest is clear on consultation. Abdomen is soft nontender. No organomegaly, bowel sounds present. Peripheral pulses are present. No edema. Results - Laboratory Findings CBC and BMP: 10/22/22 12:16 10/22/22 12:16 Abnormal Lab Findings: Abnormal Labs 10/22/22 10/22/22 10/22/22 12:11 12:16 12:16 APTT 20.1 L Sodium 136 L Carbon Dioxide 16 L Glucose 217 H POC Glucose (mg/dL) 191 H Plasma Lactic Acid Timothy Magnesium 1.5 L 10/22/22 10/22/22 12:16 15:03 APTT Sodium Carbon Dioxide Glucose POC Glucose (mg/dL) Plasma Lactic Acid Timothy 5.6 H* 3.0 H* Magnesium Assessment and Plan Assessment: * Possible TIA (transient right arm weakness, dizziness, gait imbalance) * Syncopal spell, unclear cause, rule out arrhythmia versus seizure. Family states that patient had "cardiac arrest requiring CPR for 25 seconds". * Recent history of CVA 2 weeks ago, treated at [facility] * History of atrial fibrillation (per EKG from 02/18/2019), currently not on anticoagulation * Hypertension * Diabetes * Memory loss related to recent CVA Plan: * MRI brain, evaluate for acute/subacute CVA * EEG rule out epileptiform activity * Patient's family reports of patient had a cardiac arrest requiring CPR for "25 seconds". Patient does have loop recorder. Consult cardiology for loop recorder interrogation. Patient also has history of atrial fibrillation in the past. Cardiology to assess need for anticoagulation. * It appears patient had extensive workup performed at [facility] just 2 weeks ago. Per family, he had a NOHEMI performed as well. Need to obtain records from [facility] for further review. * Fasting a.m. lipid panel, hemoglobin A1c, B12, folate. * Patient currently on aspirin 162 mg daily. We will start Plavix 75 mg daily for now pending further testing. * Continue Lipitor 20 mg daily. * DVT prophylaxis: Patient on heparin 5000 units subcu every 12 hour. * Dr. Tao Larose will resume neurology service in the morning. Thank you for th e consult. Time with Patient: Greater than 30
--- NOTE | 2022-10-23 02:39 | HP ---
HISTORY AND PHYSICAL CHIEF COMPLAINT: Dizziness and unresponsiveness. HISTORY OF PRESENT ILLNESS: This is an 82-year-old gentleman with past medical history of multiple medical problems including diabetes mellitus, hypertension, other medical issues, being followed outpatient recently, apparently admitted the patient apparently was found to have an episode of unresponsiveness by the family and the patient was taken to [facility] and was admitted for further evaluation and treatment. The labs showed lactic acid elevated to 5.6. Otherwise, the CT of the brain, which I reviewed personally showed subacute CVA in the left inferior occipital lobe. There is no history of any fever, rigors, or chills. PAST MEDICAL HISTORY: Reviewed. Diabetes mellitus, recent stroke. Rest of the history and rest of chart also reviewed. HOME MEDICATIONS: Reviewed dose and rest of medications noted. ALLERGIES: None. FAMILY HISTORY: No history of heart disease or strokes in the family. SOCIAL HISTORY: No history of smoking or alcohol. REVIEW OF SYSTEMS: Fourteen-point review is negative except as mentioned earlier. PHYSICAL EXAMINATION: VITAL SIGNS: Pulse is 60, blood pressure n, respirations 20. HEENT: Conjunctivae normal. NECK: No jugular venous distention. CARDIOVASCULAR: S1, S2 muffled. RESPIRATORY: Breath sounds diminished at the bases. No rhonchi. No crackles. ABDOMEN: Soft, nontender. LEGS: No edema. NERVOUS SYSTEM: No focal deficits. SKIN: No ulcer, rash, bleeding. JOINTS: No active deforming arthropathy. LABORATORY DATA: Labs are reviewed. ASSESSMENT: 1. Dizziness and unresponsiveness, rule out transient ischemic attack versus cardiac syncope. 2. History of recent left inferior occipital stroke. 3. Elevated lactic acid. 4. Diabetes mellitus, type 2. 5. Gastroesophageal reflux disease. 6. Hypertension. 7. Multiple medical issues. 8. History of bradycardia. RECOMMENDATIONS: This is an 82-year-old gentleman, who presented with multiple complex medical issues, we will monitor the patient closely. We will obtain Cardiology and Neurology consultations. Telemetry. Repeat labs. Resume the home medications including antiplatelets. Overall prognosis extremely guarded because of multiple complex medical issues. We will try to obtain the old records as well. Further recommendations to follow. See orders for further details. Discussed at length with the family and staff at the bedside. MMODL / IJN: [id number] / [facility]ALTH SYSTEMShon
[2022-10-23 06:07] LABS: Glucose,Whole Blood 148 mg/dL (70-110)
[2022-10-23 07:50] LABS: Basophils % (A) 0 %; Eosinophils # (A) 0.2 k/uL (0-0.7); Eosinophils % (A) 2 %; HCT 38.7 % (39.0-53.0); HGB 13.2 gm/dL (13.0-17.5); Lymphocytes # (A) 1.3 k/uL (1.0-4.8); Lymphocytes % (A) 15 %; MCH 31.4 pg (25.0-35.0); MCHC 34.1 g/dL (31.0-37.0); MCV 91.9 fL (80.0-100.0); Mean Platelet Volume 7.5; Monocytes # (A) 0.3 k/uL (0-1.0); Monocytes % (A) 4 %; Neutrophils # (A) 6.3 k/uL (1.3-7.7); Neutrophils % (A) 77 %; Platelet Count 191 k/uL (150-450); RBC 4.21 m/uL (4.30-5.90); RDW 13.2 % (11.5-15.5); WBC 8.2 k/uL (3.8-10.6)
[2022-10-23 08:08] LABS: ALT 18 U/L (4-49); AST 22 U/L (17-59); African American GFR (CKD) 77 (>60 ml/min/1.73 sqM); Albumin 3.5 g/dL (3.5-5.0); Alkaline Phosphatase 73 U/L (38-126); Anion Gap 9 mmol/L; Blood Urea Nitrogen 16 mg/dL (9-20); Calcium 8.4 mg/dL (8.4-10.2); Carbon Dioxide 25 mmol/L (22-30); Chloride 105 mmol/L (98-107); Glucose 159 mg/dL (74-99); Non-African American GFR(CKD) 66 (>60 ml/min/1.73 sqM); Potassium 3.6 mmol/L (3.5-5.1); Sodium 139 mmol/L (137-145); Total Bilirubin 0.7 mg/dL (0.2-1.3)
[2022-10-23] MEDS: metFORMIN 500 MG TAB PO SCH ×2 (08:17→20:12)
[2022-10-23] MEDS: GABAPENTIN 300 MG CAP PO SCH ×2 (08:17→20:12)
[2022-10-23] MEDS: SODIUM CHLORIDE 0.9% 1,000 ML IV SCH ×2 (08:17→15:12)
[2022-10-23] MEDS: LOSARTAN 50 MG TAB PO SCH (08:17)
[2022-10-23] MEDS: CLOPIDOGREL 75 MG TAB PO SCH (08:17)
[2022-10-23] MEDS: ASPIRIN 81 MG PO SCH (08:17)
[2022-10-23] MEDS: HEPARIN SODIUM,PORCINE/PF 5,000 UNIT/0.5 ML SYRINGE SQ SCH ×2 (08:17→20:12)
[2022-10-23] MEDS ORDERED: AMINOPHYLLINE 500 MG/20 ML VIAL IV PRN (08:30)
[2022-10-23] MEDS ORDERED: CAFFEINE CITRATE 60 MG/3 ML VIAL IV PRN (08:30)
[2022-10-23] MEDS ORDERED: REGADENOSON 0.4 MG/5 ML SYRINGE IV PRN (08:30)
--- NOTE | 2022-10-23 09:19 | US ---
EXAMINATION TYPE: US carotid duplex BILAT DATE OF EXAM: 10/23/2022 COMPARISON: NONE CLINICAL INDICATION: Male, 82 years old with history of syncope; Patient states having 2 recent [place] wi thin 3-4 weeks. No hx TIA. TECHNIQUE: Carotid duplex ultrasound examination. Indirect Doppler criteria was utilized. FINDINGS: EXAM MEASUREMENTS: RIGHT: Peak Systolic Velocity (PSV) cm/sec ----- Right CCA: 108.1 ----- Right ICA: 139.8 ----- Right ECA: 194.8 ICA/CCA ratio: 1.3 RIGHT: End Diastole cm/sec ----- Right CCA: 9.5 ----- Right ICA: 17.5 ----- Right ECA: 0.0 LEFT: Peak Systolic Velocity (PSV) cm/sec ----- Left CCA: 101.6 ----- Left ICA: 127.9 ----- Left ECA: 186.5 ICA/CCA ratio: 1.3 LEFT: End Diastole cm/sec ----- Left CCA: 11.1 ----- Left ICA: 21.5 ----- Left ECA: 0.0 VERTEBRALS (direction of flow): Right Vertebral: Antegrade Left Vertebral: Antegrade Rhythm: Arrhythmia KIESELGUHR REGENERATOR OPERATOR NOTES: Bilateral wall thickening with plaque seen in both bulbs. Elevated bilateral ECA velocities. No significant stenosis. IMPRESSION: 1. Moderate atherosclerotic changes at the bilateral carotid bifurcations. There may be a mild, less than 50% stenosis at both proximal ICAs. Doppler measurements do not suggest a hemodynamically signif icant internal carotid artery stenosis on either side. 2. Note that the equipment engineer indicates an arrhythmia during scanning. Criteria for Assigning % of Stenosis / Diameter reduction (Estimation based on the indirect measurements of the internal carotid artery velocities (ICA PSV). 1. Normal (no stenosis)=ICA PSV < 125 cm/s: ratio < 2.0: ICA EDV<40 cm/s. 2. Less than 50% stenosis=ICA PSV < 125 cm/s: ratio < 2.0: ICA EDV<40 cm/s. 3. 50 to 69% stenosis=ICA PSV of 125 to 230 cm/s: ration 2.0 ? 4.0: ICA EDV 40-100 cm/s. 4. Greater than 70% stenosis to near occlusion= ICA PSV > 230 cm/s: ratio > 4.0: ICA EDV > 100 cm/s. 5. Near occlusion= ICA PSV velocities may be low or undetectable: variable ratio and ICA EDV. 6. Total occlusion=unable to detect flow.
--- NOTE | 2022-10-23 10:18 | P.CRDCN ---
History of Present Illness Consult date: 10/23/22 Consult reason: sycope (Sinus bradycardia) History of present illness: History of present illness: This is an 82-year-old male patient of Dr. Mortensen with a past medical history of hypertension and PVCs on metoprolol. We have been asked to evaluate the patient for syncopal episode and bradycardia. Patient states that he was outside riding a 4 grimm was not feeling well walked into the house went to sit down because he was having difficulty walking and his balance was off. He ended up passing out and could not remember anything after that. His granddaughter was present who is a nurse and found that he was pulseless for about 30 seconds. CPR was started by the time EMS arrived patient was awake with a pulse. He still feels weak this morning but no lightheadedness or dizziness, no other syncopal episodes. EKG sinus rhythm at 54 bpm Chest x-ray: No acute findings CAT scan of the brain and cervical spine revealed age-indeterminate suspect acute subacute CVA of the left inferior occipital lobe. No evidence of cervical spine fracture. Moderate multilevel degenerative disc disease Carotid ultrasound revealed less than 50% stenosis in both proximal ICAs. CBC is unremarkable. Sodium 139, potassium 3.6, BUN 16 creatinine 1.05. Initial lactic acid 2.1 and today 1.1. Magnesium 1.5. Troponin negative 3. ProBNP 207. Home cardiac medications: Aspirin 162 mg daily, Lipitor 20 g at bedtime, hydrochlorothiazide 12.5 mg daily, losartan 50 mg daily, Lopressor 50 mg twice daily Nuclear stress test in 2019 was normal Review Of Systems: At the time of my evaluation: Constitutional: No fever, no chills. No weakness, fatigue or lethargy. EENT: No headache. No dizziness. Lungs: No shortness of breath, cough, no sputum production. No wheezing. Cardiovascular: No chest pain, no lower extremity edema. No palpitations. No paroxysmal nocturnal dyspnea. No orthopnea. No lightheadedness or dizziness. Reported syncopal episode. Abdominal: No abdominal pain. No nausea, vomiting. No diarrhea. No constipation. No bloody or tarry stools. Genitourinary: No dysuria.. No urinary retention. Musculoskeletal: No myalgias. No muscle weakness, no frequent falls. No back pain. No neck pain. Integumentary: No wounds. No rash. No unusual bruising. Neurologic: No aphasia. No facial droop. No change in mentation. No head injury. No headache. Physical examination: Gen: This is an 82-year-old male resting in bed appears to be comfortable no acute distress VS: reviewed HEENT: Head is atraumatic, normocephalic. Pupils equal, round. Sclerae is anicteric. NECK: Supple. No JVD. Right carotid bruit LUNGS: Clear to auscultation. No wheezes or rhonchi. No intercostal retractions. HEART: Regular rate and rhythm. No murmur. ABDOMEN: Soft No tenderness. EXTREMITIES: No pedal edema. No calf tenderness. NEUROLOGICAL: Patient is awake, alert and oriented x3. Assessment: Syncopal episode with pulselessness requiring brief CPR Suspected acute/subacute CVA in the left inferior occipital lobe on CT Bradycardia Hypertension PVCs Plan: Continue telemetry monitoring Continue patient's home cardiac medications except for Lopressor which has been placed on hold due to bradycardia Obtain orthostatic vital signs Obtain 2-D echocardiogram and Doppler study to assess cardiac structure and function Further recommendations to follow based upon clinical course Thank you kindly for this consultation. Nurse practitioner note has been reviewed, I agree with documented findings and plan of care. Patient was seen and examined. Past Medical History Past Medical History: Diabetes Mellitus, GERD/Reflux, Hypertension, Osteoarthritis (OA) Additional Past Medical History / Comment(s): BRADYCARDIA, neuropathy, stroke, History of Any Multi-Drug Resistant Organisms: None Reported Past Surgical History: Appendectomy, Hernia Repair, Orthopedic Surgery, Prostate Surgery Additional Past Surgical History / Comment(s): colonsocopy, maye knee arthroscopy, EGD with diliation, inguinal hernia repair.,. 02/14/19 Manuel fundoplasty. 02/20/19 Exploratory lap r/t perforated bowel. TURP. INCISIONAL HERNIA 02/2022 Past Anesthesia/Blood Transfusion Reactions: No Reported Reaction Additional Past Anesthesia/Blood Transfusion Reaction / Comment(s): no hx blood transfusion Past Psychological History: No Psychological Hx Reported Smoking Status: Never smoker Past Alcohol Use History: Unable to Obtain Past Drug Use History: Unable to Obtain - Past Family History Mother Family Medical History: No Reported History Father Family Medical History: Myocardial Infarction ([place]) Medications and Allergies Home Medications Medication Instructions Recorded Confirmed Type metFORMIN HCL 500 mg PO BID 04/07/19 10/22/22 History Metoprolol Tartrate [Lopressor] 50 mg PO BID 10/10/19 10/22/22 History Aspirin EC [Ecotrin Low Dose] 162 mg PO DAILY 10/22/22 10/22/22 History Atorvastatin [Lipitor] 20 mg PO HS 10/22/22 10/22/22 History Ergocalciferol (Vitamin D2) 1,250 mcg PO WE 10/22/22 10/22/22 History [Drisdol (50,000 Iu)] Gabapentin 600 mg PO BID 10/22/22 10/22/22 History Losartan [Cozaar] 50 mg PO DAILY 10/22/22 10/22/22 History hydroCHLOROthiazide 12.5 mg PO DAILY 10/22/22 10/22/22 History Allergies Allergy/AdvReac Type Severity Reaction Status Date / Time No Known Allergies Allergy Verified 10/22/22 13:44 Physical Exam Vitals: Vital Signs Temp Pulse Pulse Resp BP BP Pulse Ox 10/23/22 08:00 98.2 F 62 18 136/65 97 10/23/22 07:54 93 L 10/23/22 04:00 98.4 F 52 L 18 136/61 95 10/23/22 02:00 50 L 18 10/23/22 00:00 50 L 18 119/52 96 10/22/22 20:00 98.6 F 55 L 18 124/54 97 10/22/22 15:30 97.9 F 65 17 153/69 97 10/22/22 14:30 60 20 146/66 100 10/22/22 14:00 54 L 20 150/69 99 10/22/22 13:30 52 L 20 145/65 100 10/22/22 13:07 98.0 F 10/22/22 12:30 52 L 16 155/73 100 10/22/22 12:20 50 L 20 141/57 100 10/22/22 12:10 51 L 16 137/67 100 10/22/22 12:09 50 L 16 137/67 100 10/22/22 12:08 48 L 10/22/22 12:00 96.6 F L 54 L 18 137/67 100 Intake and Output 10/22/22 10/23/22 10/23/22 22:59 06:59 14:59 Intake Total 1203 425 310 Balance 1203 425 310 Intake: Intake, IV Titration 425 425 Amount Sodium Chloride 0.9% 1 425 000 ml @ 75 mls/hr IV . [id number] [facility] Rx#:[id number] Oral 773 310 Other: # Voids 2 1 Weight 74.1 kg Results 10/23/22 07:28 10/23/22 07:28 Cardiac Enzymes 10/22/22 10/22/22 10/22/22 Range/Units 12:16 12:16 15:03 AST 24 (17-59) U/L Troponin I <0.012 <0.012 (0.000-0.034) ng/mL 10/22/22 10/23/22 Range/Units 17:48 07:28 AST 22 (17-59) U/L Troponin I <0.012 (0.000-0.034) ng/mL Coagulation 10/22/22 Range/Units 12:16 PT 10.4 (9.0-12.0) sec APTT 20.1 L (22.0-30.0) sec CBC 10/22/22 10/23/22 Range/Units 12:16 07:28 WBC 9.8 8.2 (3.8-10.6) k/uL RBC 4.43 4.21 L (4.30-5.90) m/uL Hgb 14.1 13.2 (13.0-17.5) gm/dL Hct 39.9 38.7 L (39.0-53.0) % Plt Count 221 191 (150-450) k/uL Comprehensive Metabolic Panel 10/22/22 10/23/22 Range/Units 12:16 07:28 Sodium 136 L 139 (137-145) mmol/L Potassium 3.5 3.6 (3.5-5.1) mmol/L Chloride 104 105 (98-107) mmol/L Carbon Dioxide 16 L 25 (22-30) mmol/L BUN 20 16 (9-20) mg/dL Creatinine 1.15 1.05 (0.66-1.25) mg/dL Glucose 217 H 159 H (74-99) mg/dL Calcium 9.0 8.4 (8.4-10.2) mg/dL AST 24 22 (17-59) U/L ALT 21 18 (4-49) U/L Alkaline Phosphatase 77 73 (38-126) U/L Total Protein 6.4 6.0 L (6.3-8.2) g/dL Albumin 3.8 3.5 (3.5-5.0) g/dL Current Medications Generic Name Dose Route Start Last Admin Trade Name Freq PRN Reason Stop Dose Admin Aminophylline 100 mg 10/23/22 08:30 Aminophylline 500 Mg/20 Ml Vial IV 10/23/22 12:31 ONCE PRN Patient Response Aspirin 162 mg 10/23/22 09:00 10/23/22 08:17 Aspirin 81 Mg PO 162 mg DAILY RAJ Administration Atorvastatin Calcium 20 mg 10/22/22 21:00 10/22/22 20:09 Atorvastatin 20 Mg Tab PO 20 mg HS RAJ Administration Caffeine Citrate 60 mg 10/23/22 08:30 Caffeine Citrate 60 Mg/3 Ml Vial IV 10/23/22 12:31 ONCE PRN Patient Response Clopidogrel Bisulfate 75 mg 10/22/22 16:15 10/23/22 08:17 Clopidogrel 75 Mg Tab PO 75 mg DAILY RAJ Administration Ergocalciferol 1,250 mcg 10/25/22 17:00 Ergocalciferol 1,250 Mcg (50,000 Iu) Capsule PO WE RAJ Gabapentin 600 mg 10/22/22 21:00 10/23/22 08:17 Gabapentin 300 Mg Cap PO 600 mg BID RAJ Administration Heparin Sodium (Porcine) 5,000 unit 10/22/22 21:00 10/23/22 08:17 Heparin Sodium,Porcine/Pf 5,000 Unit/0.5 Ml Syringe SQ 5,000 unit Q12HR RAJ Administration Sodium Chloride 1,000 mls @ 75 mls/hr 10/22/22 13:30 10/23/22 08:17 Saline 0.9% IV 75 mls/hr .[id number] RAJ Administration Losartan Potassium 50 mg 10/23/22 09:00 10/23/22 08:17 Losartan 50 Mg Tab PO 50 mg DAILY RAJ Administration Metformin HCl 500 mg 10/22/22 21:00 10/23/22 08:17 Metformin 500 Mg Tab PO 500 mg BID RAJ Administration Naloxone HCl 0.2 mg 10/22/22 13:24 Naloxone 0.4 Mg/Ml 1 Ml Vial IV Q2M PRN Opioid Reversal Regadenoson 0.4 mg 10/23/22 08:30 Regadenoson 0.4 Mg/5 Ml Syringe IV 10/23/22 12:31 ONCE PRN Per Protocol Intake and Output 10/22/22 10/23/22 10/23/22 22:59 06:59 14:59 Intake Total 1203 425 310 Balance 1203 425 310 Intake: Intake, IV Titration 425 425 Amount Sodium Chloride 0.9% 1, 425 425 000 ml @ 75 mls/hr IV . [id number] [facility] Rx#:[id number] Oral 778 310 Other: # Voids 2 1 Weight 74.1 kg 10/23/22 07:28 10/23/22 07:28
[2022-10-23 11:25] LABS: Glucose,Whole Blood 257 mg/dL (70-110)
[2022-10-23 11:35] LABS: Chol/HDL Ratio 3.99 Ratio; LDL Cholesterol,Calculated 71.7 mg/dL (0.0-131.0)
--- NOTE | 2022-10-23 13:36 | P.PN ---
Subjective Progress Note Date: 10/23/22 I'm seeing the patient for the first time during this admission. Please refer to Dr. Aaron's note for further details. She is accompanied with his daughter and son-in-law was our bedside that. It appears the patient had a recent stroke about 2 and half weeks ago and was hospitalized at [facility]. According to his daughter the there were told that the patient had a stroke and a the stroke was due to the his atrial fibrillation but is not placed on anticoagulation. He was placed on the loop recorder. Seems the patient had a loop recorder interrogation according to notes and there is no evidence of atrial fibrillation. Patient possibly had a syncopal spell unclear cause at at home and he required about 25 seconds of CPR. Objective - Vital Signs Vital signs: Vital Signs Temp 98 F 10/23/22 11:49 Pulse 52 L 10/23/22 11:49 Resp 19 10/23/22 11:49 BP 117/54 10/23/22 11:49 Pulse Ox 97 10/23/22 11:49 FiO2 Intake & Output 10/22/22 10/23/22 10/23/22 18:59 06:59 18:59 Intake Total 658 970 550 Balance 658 970 550 Weight 63.503 kg 74.1 kg Intake: Intake, IV Titration 850 Amount Sodium Chloride 0.9% 1, 850 000 ml @ 75 mls/hr IV . [id number] [facility] Rx#:[id number] Oral 658 120 550 Other: # Voids 1 1 - Exam GENERAL: The patient is lying in bed and is not in acute distress. NEUROLOGICAL: Higher mental function: The patient is awake, alert, oriented to self, place. He stated the year is 2002 and correctly stated the current month. Patient is following simple commands. No aphasia and no neglect. Cranial nerves: The pupils are round, equal and reactive to light. Visual field s is right homonymous hemianopsia. Extraocular movement is intact no nystagmus is noted. Facial sensation is normal to touch throughout. The facial strength is normal throughout. Tongue is midline and moved [id number] without any difficulty. No dysarthria is noted. Shoulder shrug is normal bilaterally. Motor: The strength is 5 over 5 throughout. Normal tone and bulk. Cerebellum: Normal finger to nose heel to chin bilaterally. Sensation: Sensation is normal to touch throughout. - Labs CBC & Chem 7: 10/23/22 07:28 10/23/22 07:28 Labs: Abnormal Lab Results - Last 24 Hours (Table) 10/22/22 10/22/22 10/22/22 Range/Units 15:03 16:48 17:48 RBC (4.30-5.90) m/uL Hct (39.0-53.0) % Glucose (74-99) mg/dL POC Glucose (mg/dL) 135 H (70-110) mg/dL Hemoglobin A1c (0.0-6.0) % Plasma Lactic Acid Timothy 3.0 H* 4.3 H* (0.7-2.0) mmol/L Total Protein (6.3-8.2) g/dL HDL Cholesterol (40.00-60.00) mg/dL 10/22/22 10/22/22 10/23/22 Range/Units 20:10 21:26 06:05 RBC (4.30-5.90) m/uL Hct (39.0-53.0) % Glucose (74-99) mg/dL POC Glucose (mg/dL) 253 H 148 H (70-110) mg/dL Hemoglobin A1c (0.0-6.0) % Plasma Lactic Acid Timothy 2.1 H* (0.7-2.0) mmol/L Total Protein (6.3-8.2) g/dL HDL Cholesterol (40.00-60.00) mg/dL 10/23/22 10/23/22 10/23/22 Range/Units 07:28 07:28 07:28 RBC 4.21 L (4.30-5.90) m/uL Hct 38.7 L (39.0-53.0) % Glucose 159 H (74-99) mg/dL POC Glucose (mg/dL) (70-110) mg/dL Hemoglobin A1c 6.7 H (0.0-6.0) % Plasma Lactic Acid Timothy (0.7-2.0) mmol/L Total Protein 6.0 L (6.3-8.2) g/dL HDL Cholesterol 33.30 L (40.00-60.00) mg/dL 10/23/22 Range/Units 11:23 RBC (4.30-5.90) m/uL Hct (39.0-53.0) % Glucose (74-99) mg/dL POC Glucose (mg/dL) 257 H (70-110) mg/dL Hemoglobin A1c (0.0-6.0) % Plasma Lactic Acid Timothy (0.7-2.0) mmol/L Total Protein (6.3-8.2) g/dL HDL Cholesterol (40.00-60.00) mg/dL Assessment and Plan Assessment: * Possible TIA (transient right arm weakness, dizziness, gait imbalance) * Syncopal spell, unclear cause, rule out arrhythmia versus seizure. Family states that patient had "cardiac arrest requiring CPR for 25 seconds". * Recent history of CVA 2.5 weeks ago, treated at [facility] * Acute/subacute stroke over the left inferior occipital lobe on recent CT and on examination has right homonymous hemianopsia * History of atrial fibrillation (per EKG from 02/18/2019) and according to family has recent A-fib while hospitalized 2.5 weeks ago, currently not on anticoagulation * Very low normal vitamin B12 * Hypertension * Diabetes * Memory loss related to recent CVA Plan: * MRI brain, evaluate for acute/subacute CVA * EEG rule out epileptiform activity * Patient's family reports of patient had a cardiac arrest requiring CPR for "25 seconds". Patient does have loop recorder. Cardiology consulted for loop recorder interrogation. Patient also has history of atrial fibrillation. Cardiology to assess need for anticoagulation. * It appears patient had extensive workup performed at [facility] just 2.5 weeks ago. Per family, he had a NOHEMI performed as well. Need to obtain records from [facility] for further review. * Fasting a.m. lipid panel: Triglyceride 140, cholesterol is 133, LDL 71, HDL is 33 at. Hemoglobin A1c 6.7 * Serum folate is 9.0. Vitamin B12 is 255 (normal is 200-944). Since the bottom B12 is very low normal I will give him a vitamin B12 IM for today and tomorrow and then after that by mouth 1000mcg daily. * Carotid duplex was reported as moderate at this chronic changes at the bilateral carotid bifurcation. There may be a mild less than 50% stenosis of both proximal ICA. Doppler measurement do not suggest hemodynamically significant internal carotid artery stenosis on either side. Note the wire chief indicates an arrhythmia during scanning. * Patient currently on aspirin [address] Aaron started him on Plavix 75 mg daily for now pending further testing. * Continue Lipitor 20 mg daily. * DVT prophylaxis: Patient on heparin 5000 units subcu every 12 hour. The plan is discussed with patient and his family members (daughter and so-in-law). Discussed with his nurse as well Time with Patient: Less than 30
[2022-10-23] MEDS: CYANOCOBALAMIN 1,000 MCG/ML 1 ML VIAL IM SCH (14:06)
[2022-10-23] MEDS ORDERED: DEXTROSE 50% SYRINGE 50 ML IVP PRN ×2 (15:48)
[2022-10-23 17:01] LABS: Glucose,Whole Blood 298 mg/dL (70-110)
[2022-10-23] MEDS: INSULIN ASPART (NovoLOG) 100 UNIT/ML VIAL SQ SCH ×2 (17:05→20:12)
--- NOTE | 2022-10-23 17:55 | CA ---
Transthoracic Echo Report Name: Calvin Davies Age: 82 Gender: M : 1940 Exam Date: 10/23/2022 11:54 Exam Location: [place] Echo Ht (in): 68 Wt (lb): 163 Ordering Physician: Tiffany Urrutia Attending/Referring Phys: [id number], Ghada Black Studies Professor Shayy Garcia RDCS Procedure CPT: Indications: LVF Cardiac Hx: Technical Quality: Good Contrast 1: Total Dose (mL): Contrast 2: Total Dose (mL): MEASUREMENTS (Male / Female) Normal Values 2D ECHO LV Diastolic Diameter PLAX 4.2 cm 4.2 - 5.9 / 3.9 - 5.3 cm LV Systolic Diameter PLAX 3.1 cm IVS Diastolic Thickness 1.0 cm 0.6 - 1.0 / 0.6 - 0.9 cm LVPW Diastolic Thickness 1.3 cm 0.6 - 1.0 / 0.6 - 0.9 cm LV Relative Wall Thickness 0.6 RV Internal Dim ED PLAX 3.3 cm LA Systolic Diameter LX 3.4 cm 3.0 - 4.0 / 2.7 - 3.8 cm LV Diastolic Volume MOD 4C 112.5 cm??? LV Systolic Volume MOD 4C 49.6 cm??? LV Ejection Fraction MOD 4C 55.9 % LV Diastolic Length 4C 8.4 cm LV Systolic Length 4C 6.6 cm LV Diastolic Volume MOD 2C 67.6 cm??? LV Systolic Volume MOD 2C 36.6 cm??? LV Ejection Fraction MOD 2C 45.8 % LV Diastolic Length 2C 8.7 cm LV Systolic Length 2C 7.1 cm LA Volume 59.5 cm??? 18 - 58 / 22 - 52 cm??? M-MODE Aortic Root Diameter MM 3.1 cm MV E Point Septal Separation 0.7 cm AV Cusp Separation MM 2.3 cm DOPPLER AV Peak Velocity 170.7 cm/s AV Peak Gradient 11.7 mmHg AI Peak Velocity 421.4 cm/s AI Peak Gradient 71.0 mmHg AI Pressure Half Time 609.9 ms MV Area PHT 3.8 cm??? Mitral E Point Velocity 113.8 cm/s Mitral A Point Velocity 91.2 cm/s Mitral E to A Ratio 1.2 MV Deceleration Time 197.6 ms MV E' Velocity 7.6 cm/s Mitral E to MV E' Ratio 14.9 TR Peak Velocity 284.6 cm/s TR Peak Gradient 32.4 mmHg Right Ventricular Systolic Press 36.8 mmHg FINDINGS Left Ventricle Left ventricular ejection fraction is estimated at 50-55 %. Left ventricular cavity size normal. Right Ventricle Mild right ventricular dilatation. Mild pulmonary hypertension. Right Atrium Normal right atrial size. Left Atrium Mildly increased left atrial volume. Mildly increased left atrial area. Mitral Valve Mitral valve thickened. Mild mitral regurgitation. Aortic Valve Aortic valve sclerosis. Moderate aortic regurgitation. Tricuspid Valve Structurally normal tricuspid valve. Mild tricuspid regurgitation. Pulmonic Valve Structurally normal pulmonic valve. Trace pulmonic regurgitation. Pericardium Normal pericardium. No pericardial effusion. Aorta Normal size aortic root and proximal ascending aorta. CONCLUSIONS Normal LV systolic function Previewed by: Dr. Wilfredo Davalos MD (Electronically Signed) Final Date: 23 Oct 2022 17:55
--- NOTE | 2022-10-23 19:50 | MR ---
EXAMINATION TYPE: MR brain wo con DATE OF EXAM: 10/23/2022 COMPARISON: Brain 10/22/2022 HISTORY: Acute vs Subacute CVA CONTRAST: Performed utilizing 0 mL intravenous Gadavist gadolinium contrast. TECHNIQUE: Multiplanar, multiecho imaging on a 3.0 Cyndie magnet is performed through the brain. Stud y is performed within 24 hours of arrival to the hospital. The craniovertebral junction is normal. The pituitary is normal. Diffusion-weighted imaging is performed. There is increased signal within the anterior mid brain lev el fourth ventricle. Increased signal is within the periventricular region adjacent to the posterior left lateral ventricle. Some medial hippocampus signal may be present on the left. Medial periventric ular hyperintensity is present adjacent to the left lateral ventricle. Uptake is in the left aspect o f the corpus callosum. These areas are not as well-visualized on the T2-weighted sequences but appear to be present. Findings appear relatively apparent on the inversion recovery weighted sequences. Fin dings are suggestive for acute ischemic changes. Additional periventricular white matter hyperintensi ty is present compatible with older chronic white matter ischemic-type changes. No abnormal enhancement is evident. Ventricles and sulci are prominent for the patient age. IMPRESSIONS: 1. Acute left side brainstem and periventricular hyperintensity compatible with acute ischemic change s. 2. There are additional chronic appearing old white matter ischemic changes in the periventricular wh ite matter. 3. Age-related atrophy.
[2022-10-23 20:04] LABS: Glucose,Whole Blood 152 mg/dL (70-110)
[2022-10-23] MEDS: ATORVASTATIN 20 MG TAB PO SCH (20:12)
--- NOTE | 2022-10-23 21:46 | EEG ---
ELECTROENCEPHALOGRAM REPORT CLINICAL HISTORY: This is an 82-year-old gentleman with a syncopal episode. The video EEG is obtained to evaluate for seizure epileptiform activity. EEG TYPE: A routine 21-channel EEG is performed with video using the 10/20 electrode placement system. RELEVANT MEDICATION: The patient is not on any antiepileptic drugs. DESCRIPTION: Wakefulness is obtained. During awake state, the posterior-dominant rhythm consists of [id number] voltage of 8 to 8.5 hertz activity that is well modulated and well sustained. There is no physiological stage 2 sleep architecture seen. There is no focal slowing. Interictal and ictal is none. ACTIVATION PROCEDURE: Photic stimulation did not evoke a posterior driving response. There is no abnormality during the photic stimulation. Hyperventilation is not performed. CLINICAL INTERPRETATION: This is a normal routine EEG. There is no focal slowing, epileptiform discharge, or seizure on the EEG. A normal routine EEG does not rule out underlying epilepsy. Clinical correlation is recommended. [place] / AGUILA: [id number] / MTDShon
[2022-10-24 05:57] LABS: Glucose,Whole Blood 124 mg/dL (70-110)
[2022-10-24] MEDS: INSULIN ASPART (NovoLOG) 100 UNIT/ML VIAL SQ SCH ×4 (06:08→20:46)
--- NOTE | 2022-10-24 06:53 | PN ---
PROGRESS NOTE DATE OF SERVICE: 10/23/2022 SUBJECTIVE: This is an 82-year-old gentleman, who had a recent stroke, also was admitted with cardiac arrest apparently for 25 seconds. Cardiology is following the patient closely and recommending a stress test tomorrow. A carotid ultrasound showed less than 50% stenosis. The patient is being closely monitored at this time. Neurology is also following the patient closely. PAST MEDICAL HISTORY: Reviewed. REVIEW OF SYSTEMS: A 14-point review is negative except as mentioned earlier. CURRENT MEDICATIONS: Reviewed include aspirin and Lipitor. Doses and rest of medications noted. PHYSICAL EXAMINATION: VITAL SIGNS: Pulse is 52, blood pressure 124/59, no orthostatic changes. HEENT: Conjunctivae normal. CARDIOVASCULAR: S1, S2 muffled. ABDOMEN: Soft. LEGS: No edema. NERVOUS SYSTEM: Nonfocal. LABORATORY DATA: Labs are noted. Glucose 257. ASSESSMENT: 1. Dizziness and unresponsiveness, rule out transient ischemic attack versus cardiac syncope. 2. History of recent left inferior occipital stroke. 3. Cardiac arrest for 25 seconds and CPR. 4. Elevated lactic acid. 5. Diabetes mellitus, type 2. 6. Gastroesophageal reflux disease. 7. Hypertension. 8. Multiple medical issues. 9. History of bradycardia. 10.Full code. RECOMMENDATIONS: Recommend to continue current medications. Continue symptomatic treatment. I would recommend repeat labs. Monitor blood sugars closely. Accu-Cheks before meals and at bedtime. Otherwise, closely follow with Cardiology, Neurology. Possible stress test. Prognosis guarded. Resume the home medications. Further recommendations to follow. MMODL / IJN: [id number] /
[2022-10-24 07:17] LABS: Basophils % (A) 0 %; Eosinophils # (A) 0.4 k/uL (0-0.7); Eosinophils % (A) 6 %; HCT 37.3 % (39.0-53.0); HGB 12.7 gm/dL (13.0-17.5); Lymphocytes # (A) 1.2 k/uL (1.0-4.8); Lymphocytes % (A) 21 %; MCH 31.8 pg (25.0-35.0); MCHC 34.1 g/dL (31.0-37.0); MCV 93.3 fL (80.0-100.0); Mean Platelet Volume 7.6; Monocytes # (A) 0.3 k/uL (0-1.0); Monocytes % (A) 5 %; Neutrophils # (A) 3.9 k/uL (1.3-7.7); Neutrophils % (A) 67 %; Platelet Count 179 k/uL (150-450); RBC 3.99 m/uL (4.30-5.90); WBC 5.9 k/uL (3.8-10.6)
[2022-10-24 07:24] LABS: Calcium 8.2 mg/dL (8.4-10.2); Potassium 3.5 mmol/L (3.5-5.1)
[2022-10-24] MEDS ORDERED: CAFFEINE CITRATE 60 MG/3 ML VIAL IV PRN (07:46)
[2022-10-24] MEDS ORDERED: REGADENOSON 0.4 MG/5 ML SYRINGE IV PRN (07:46)
[2022-10-24] MEDS ORDERED: AMINOPHYLLINE 500 MG/20 ML VIAL IV PRN (07:46)
[2022-10-24] MEDS: CYANOCOBALAMIN 1,000 MCG/ML 1 ML VIAL IM SCH (08:07)
[2022-10-24] MEDS: ASPIRIN 81 MG PO SCH (08:14)
[2022-10-24] MEDS: metFORMIN 500 MG TAB PO SCH ×2 (08:14→20:01)
[2022-10-24] MEDS: HEPARIN SODIUM,PORCINE/PF 5,000 UNIT/0.5 ML SYRINGE SQ SCH (08:14)
[2022-10-24] MEDS: GABAPENTIN 300 MG CAP PO SCH ×2 (08:15→20:00)
[2022-10-24] MEDS: LOSARTAN 50 MG TAB PO SCH (08:15)
[2022-10-24] MEDS: CLOPIDOGREL 75 MG TAB PO SCH (08:15)
--- NOTE | 2022-10-24 11:28 | P.PN ---
Subjective Progress Note Date: 10/24/22 History of present illness: This is an 82-year-old male patient of Dr. Mortensen with a past medical history of hypertension and PVCs on metoprolol. We have been asked to evaluate the patient for syncopal episode and bradycardia. Patient states that he was outside riding a 4 grimm was not feeling well walked into the house went to sit down because he was having difficulty walking and his balance was off. He ended up passing out and could not remember anything after that. His granddaughter was present who is a nurse and found that he was pulseless for about 30 seconds. CPR was started by the time EMS arrived patient was awake with a pulse. He still feels weak this morning but no lightheadedness or dizziness, no other syncopal episodes. EKG sinus rhythm at 54 bpm Chest x-ray: No acute findings CAT scan of the brain and cervical spine revealed age-indeterminate suspect acute subacute CVA of the left inferior occipital lobe. No evidence of cervical spine fracture. Moderate multilevel degenerative disc disease Carotid ultrasound revealed less than 50% stenosis in both proximal ICAs. CBC is unremarkable. Sodium 139, potassium 3.6, BUN 16 creatinine 1.05. Initial lactic acid 2.1 and today 1.1. Magnesium 1.5. Troponin negative 3. ProBNP 207. Home cardiac medications: Aspirin 162 mg daily, Lipitor 20 g at bedtime, hydrochlorothiazide 12.5 mg daily, losartan 50 mg daily, Lopressor 50 mg twice daily Nuclear stress test in 2019 was normal 10/24 Yesterday, Lexiscan stress test for today was canceled because of the report of the CAT scan. Patient apparently had a stroke 2-1/2 weeks ago was treated as [facility]. Also he apparently had one episode of atrial fibrillation in the past and also had an episode at the [facility] 2 and half weeks ago but was not started on anticoagulation. Heart rate is running in the 60s to 70s, blood pressure 166/74. BUN 13 creatinine 0.92. Hemoglobin A1c MRI of the brain revealed acute left sided brainstem and periventricular h yperintensity compatible with acute ischemic changes. Chronic old white matter ischemic changes in the periventricular white matter. Echocardiogram reveals normal LV systolic function. Physical examination: Gen: This is an 82-year-old male resting in bed appears to be comfortable no acute distress VS: reviewed HEENT: Head is atraumatic, normocephalic. Pupils equal, round. Sclerae is a nicteric. NECK: Supple. No JVD. Right carotid bruit LUNGS: Clear to auscultation. No wheezes or rhonchi. No intercostal retractions. HEART: Regular rate and rhythm. No murmur. ABDOMEN: Soft No tenderness. EXTREMITIES: No pedal edema. No calf tenderness. NEUROLOGICAL: Patient is awake, alert and oriented x3. Assessment: Syncopal episode with pulselessness requiring brief CPR Suspected acute/subacute CVA in the left inferior occipital lobe on CT Bradycardia Paroxysmal Atrial fibrillation diagnosed at [facility] 2 and half weeks ago Hypertension PVCs Plan: Continue telemetry monitoring Continue patient's home cardiac medications except for Lopressor which has been placed on hold due to bradycardia Patient will be started on eliquis 5 mg twice daily Further recommendations to follow based upon clinical course Thank you kindly for this consultation. Nurse practitioner note has been reviewed, I agree with documented findings and plan of care. Patient was seen and examined. Objective - Vital Signs Vital signs: Vital Signs Temp 97 F L 10/23/22 20:00 Pulse 61 10/24/22 04:00 Resp 16 10/24/22 04:00 BP 151/70 10/24/22 04:00 Pulse Ox 95 10/24/22 04:00 FiO2 Intake & Output 10/23/22 10/24/22 10/24/22 18:59 06:59 18:59 Intake Total 770 Balance 770 Intake: Oral 770 Other: # Voids 2 2 - Labs CBC & Chem 7: 10/24/22 06:58 10/24/22 06:58 Labs: Abnormal Lab Results - Last 24 Hours (Table) 10/23/22 10/23/22 10/23/22 Range/Units 07:28 07:28 07:28 RBC 4.21 L (4.30-5.90) m/uL Hgb (13.0-17.5) gm/dL Hct 38.7 L (39.0-53.0) % Glucose 159 H (74-99) mg/dL POC Glucose (mg/dL) (70-110) mg/dL Hemoglobin A1c 6.7 H (0.0-6.0) % Calcium (8.4-10.2) mg/dL Total Protein 6.0 L (6.3-8.2) g/dL HDL Cholesterol 33.30 L (40.00-60.00) mg/dL 10/23/22 10/23/22 10/23/22 Range/Units 11:23 16:59 20:03 RBC (4.30-5.90) m/uL Hgb (13.0-17.5) gm/dL Hct (39.0-53.0) % Glucose (74-99) mg/dL POC Glucose (mg/dL) 257 H 298 H 152 H (70-110) mg/dL Hemoglobin A1c (0.0-6.0) % Calcium (8.4-10.2) mg/dL Total Protein (6.3-8.2) g/dL HDL Cholesterol (40.00-60.00) mg/dL 10/24/22 10/24/22 10/24/22 Range/Units 05:56 06:58 06:58 RBC 3.99 L (4.30-5.90) m/uL Hgb 12.7 L (13.0-17.5) gm/dL Hct 37.3 L (39.0-53.0) % Glucose 130 H (74-99) mg/dL POC Glucose (mg/dL) 124 H (70-110) mg/dL Hemoglobin A1c (0.0-6.0) % Calcium 8.2 L (8.4-10.2) mg/dL Total Protein (6.3-8.2) g/dL HDL Cholesterol (40.00-60.00) mg/dL
[2022-10-24 11:40] LABS: Glucose,Whole Blood 152 mg/dL (70-110)
[2022-10-24] MEDS: APIXABAN 5 MG TAB PO SCH ×2 (11:49→20:00)
--- NOTE | 2022-10-24 12:35 | NM ---
EXAMINATION TYPE: NM stress lexiscan cardiolite DATE OF EXAM: 10/24/2022 COMPARISON: NONE CLINICAL INDICATION: Male, 82 years old with history of CP; TECHNIQUE: After the intravenous administration of 10.21 mCi Tc 99m Sestamibi - Cardiolite resting S PECT images acquired 65 minutes post injection. The patient received 0.4mg Lexiscan, 25.5 mCi Tc 99m Sestamibi - Stress images obtained [address] injection FINDINGS: Review of stress and rest SPECT images demonstrates possible small area of reversibility along the in ferolateral apical wall. However, this is not corroborated on the polar maps. TID is upper limits o f normal at 1.16. No other distinct perfusion abnormality is seen. Gated analysis shows overall norm al wall motion with an estimated left ventricular ejection fraction of 72 %. IMPRESSION: Possible small area of reversibility along the apical inferolateral wall. However, we are unable to c orroborate this finding on the polar maps. Further evaluation as clinically indicated. Estimated LVEF 72%.
--- NOTE | 2022-10-24 14:11 | CA ---
Lexiscan Nuclear Stress Test Report Name: Calvin Davies Exam Date: 10/24/2022 09:21 Exam Location: [place] [facility] Ht (in): 68 Wt (lb): 163 BSA: 1.87 Ordering Phys: Tiffany Urrutia Referring Phys: Jed, Technologist: Boni Saucedo Age: 82 Gender: M : 1940 Procedure CPT: Indications: Reflex order-Stress test ICD-10 Codes: Patient History: Medications: SEE CHART Meds past 24 hrs: Pretest Chest Pain: STRESS TEST Lexiscan Protocol Exercise Duration (min:sec): 02:[address] Depressions (mm): Angina Score: Cárdenas Score: Resting HR (bpm): 60 Peak HR (bpm): 103 Resting BP (mmHg): 156 / 80 Peak BP (mmHg): / 61 MPHR: 138 Target HR: 117 % MPHR: 75 METS: 1.0 Total Dose: Peak Dose: Atropine: Double Product: BP Response: Stress Termination: PROTOCOL COMPLETE Stress Symptoms: VERTIGO Stress Summary: ECG ANALYSIS Resting ECG: Stress ECG: CONCLUSIONS Lexiscan Cardiolite stress test Heart rates ranging from 55-92 beats a minute line mildly elevated blood pressure readings Abnormal EKG with ST depression inferolaterally that became more prominent through Lexiscan infusion Occasional PVCs noted Nuclear portion will be reported separately Dr. Wilfredo Davalos MD (Electronically Signed) Final Date: 24 Oct 2022 14:11
[2022-10-24 16:44] LABS: Glucose,Whole Blood 135 mg/dL (70-110)
--- NOTE | 2022-10-24 17:01 | P.PN ---
Subjective Progress Note Date: 10/24/22 He is seen at bedside and he feels about the same. Denies of any worsening of his condition. Objective - Vital Signs Vital signs: Vital Signs Temp 97.5 F L 10/24/22 16:00 Pulse 64 10/24/22 16:00 Resp 16 10/24/22 16:00 BP 132/62 10/24/22 16:00 Pulse Ox 98 10/24/22 16:00 FiO2 Intake & Output 10/23/22 10/24/22 10/24/22 18:59 06:59 18:59 Intake Total 770 340 Balance 770 340 Intake: Oral 770 340 Other: # Voids 2 2 2 - Exam GENERAL: The patient is lying in bed and is not in acute distress. NEUROLOGICAL: Higher mental function: The patient is awake, alert, oriented to self, place. He stated the year is 2002 and correctly stated the current month. Patient is following simple commands. No aphasia and no neglect. Cranial nerves: The pupils are round, equal and reactive to light. Visual madera is right homonymous hemianopsia. Extraocular movement is intact no nystagmus is noted. Facial sensation is normal to touch throughout. The facial strength is normal throughout. Tongue is midline and moved [id number] without any difficulty. No dysarthria is noted. Shoulder shrug is normal bilaterally. Motor: The strength is 5 over 5 throughout. Normal tone and bulk. Cerebellum: Normal finger to nose heel to chin bilaterally. Sensation: Sensation is normal to touch throughout. - Labs CBC & Chem 7: 10/24/22 06:58 10/24/22 06:58 Labs: Abnormal Lab Results - Last 24 Hours (Table) 10/23/22 10/23/22 10/24/22 Range/Units 16:59 20:03 05:56 RBC (4.30-5.90) m/uL Hgb (13.0-17.5) gm/dL Hct (39.0-53.0) % Glucose (74-99) mg/dL POC Glucose (mg/dL) 298 H 152 H 124 H (70-110) mg/dL Hemoglobin A1c (0.0-6.0) % Calcium (8.4-10.2) mg/dL 10/24/22 10/24/22 10/24/22 Range/Units 06:58 06:58 06:58 RBC 3.99 L (4.30-5.90) m/uL Hgb 12.7 L (13.0-17.5) gm/dL Hct 37.3 L (39.0-53.0) % Glucose 130 H (74-99) mg/dL POC Glucose (mg/dL) (70-110) mg/dL Hemoglobin A1c 6.7 H (0.0-6.0) % Calcium 8.2 L (8.4-10.2) mg/dL 10/24/22 10/24/22 Range/Units 11:32 16:38 RBC (4.30-5.90) m/uL Hgb (13.0-17.5) gm/dL Hct (39.0-53.0) % Glucose (74-99) mg/dL POC Glucose (mg/dL) 152 H 135 H (70-110) mg/dL Hemoglobin A1c (0.0-6.0) % Calcium (8.4-10.2) mg/dL Assessment and Plan Assessment: * Acute to subacut ischemic stroke Present with transient right arm weakness, di zziness, gait imbalance. MRI pain reveals acute stroke over the left medial pontine region as well as the periventricular/medial temporal occipital region. * Syncopal spell, unclear cause, rule out arrhythmia versus seizure. Family states that patient had "cardiac arrest requiring CPR for 25 seconds". * Recent history of CVA 2.5 weeks ago, treated at [facility] * Acute/subacute stroke over the left inferior occipital lobe on recent CT and on examination has right homonymous hemianopsia * History of atrial fibrillation (per EKG from 02/18/2019) and according to family has recent A-fib while hospitalized 2.5 weeks ago, currently not on anticoagulation * Very low normal vitamin B12 * Hypertension * Diabetes * Memory loss related to recent CVA Plan: * MRI brain: It is reported as acute left brainstem in the paraventricular hyperintensity compatible with acute ischemic changes. I personally reviewed the MRI and I do agree. Patient does have acute ischemia over the left medial pontine, left periventricular region in the territory of the temporal occipital region. * EEG: Is normal. There is no focal slowing, from distress or seizure on the EEG. * Patient's family reports of patient had a cardiac arrest requiring CPR for "25 seconds". Patient does have loop recorder. Cardiology consulted for loop recorder interrogation. Patient also has history of atrial fibrillation. Cardiology to assess need for anticoagulation. * It appears patient had extensive workup performed at [facility] just 2.5 weeks ago. Per family, he had a NOHEMI performed as well. Need to obtain records from [facility] for further review. * Fasting a.m. lipid panel: Triglyceride 140, cholesterol is 133, LDL 71, HDL is 33 at. Hemoglobin A1c 6.7 * Serum folate is 9.0. Vitamin B12 is 255 (normal is 200-944). Since the bottom B12 is very low normal I will give him a vitamin B12 IM for today and tomorrow and then after that by mouth 1000mcg daily. * Carotid duplex was reported as moderate at this chronic changes at the bilateral carotid bifurcation. There may be a mild less than 50% stenosis of both proximal ICA. Doppler measurement do not suggest hemodynamically significant internal carotid artery stenosis on either side. Note the garbage pick up worker indicates an arrhythmia during scanning. * Patient currently on aspirin [address] Aaron started him on Plavix 75 mg daily for now pending further testing. I spoke with cardiology team regarding the use of anticoagulation. Recommend use of anticoagulation 4 days from now because of recent stroke to avoid any hemorrhagic conversion. Once anticoagulation is started no need for use of Plavix. * Continue Lipitor 20 mg daily. * DVT prophylaxis: Patient on heparin 5000 units subcu every 12 hour. The plan is discussed with patient, cardiology team and his nurse. Time with Patient: Less than 30
[2022-10-24] MEDS: ATORVASTATIN 20 MG TAB PO SCH (20:00)
[2022-10-24 20:43] LABS: Glucose,Whole Blood 139 mg/dL (70-110)
--- NOTE | 2022-10-24 21:20 | PN ---
PROGRESS NOTE DATE OF SERVICE: 10/24/2022 SUBJECTIVE: This is an 82-year-old gentleman, who was admitted with dizziness and unresponsiveness. He is being evaluated for cardiac causes, and Lexiscan stress test showed a small area of reversible ischemia in the apical area. No chest pain. No palpitations. No fever. OBJECTIVE: VITAL SIGNS: Pulse is 65, blood pressure 169/74, respirations 18. CHEST: Clear to auscultation. CARDIOVASCULAR: S1 and S2. ABDOMEN: Soft. NERVOUS SYSTEM: Nonfocal. LABORATORY DATA: Noted. ASSESSMENT: 1. Dizziness and unresponsiveness, rule out transient ischemic attack versus cardiac syncope. 2. Possible abnormal stress test. 3. History of recent left inferior occipital lobe stroke. 4. Cardiac arrest for 20 seconds and cardiopulmonary resuscitation. 5. Elevated lactic acid, improved. 6. Diabetes mellitus, type 2. 7. Multiple medical issues. RECOMMENDATIONS: Recommend to continue current medications. Continue symptomatic treatment. Otherwise, closely follow with Cardiology and Neurology. Repeat labs. Further recommendations to follow. MMODL / IJN: [id number] /
[2022-10-25 06:04] LABS: Glucose,Whole Blood 148 mg/dL (70-110)
[2022-10-25] MEDS: INSULIN ASPART (NovoLOG) 100 UNIT/ML VIAL SQ SCH ×4 (06:11→20:26)
[2022-10-25] MEDS: GABAPENTIN 300 MG CAP PO SCH ×2 (08:15→20:26)
[2022-10-25] MEDS: ASPIRIN 81 MG PO SCH (08:16)
[2022-10-25] MEDS: metFORMIN 500 MG TAB PO SCH ×2 (08:16→20:25)
[2022-10-25] MEDS: CLOPIDOGREL 75 MG TAB PO SCH (08:16)
[2022-10-25] MEDS: LOSARTAN 50 MG TAB PO SCH (08:16)
[2022-10-25] MEDS: APIXABAN 5 MG TAB PO SCH (08:16)
[2022-10-25] MEDS: CYANOCOBALAMIN 500 MCG TAB PO SCH (08:16)
[2022-10-25 08:43] LABS: Basophils % (A) 0 %; Eosinophils # (A) 0.4 k/uL (0-0.7); Eosinophils % (A) 6 %; HCT 40.9 % (39.0-53.0); HGB 13.7 gm/dL (13.0-17.5); Lymphocytes # (A) 1.3 k/uL (1.0-4.8); Lymphocytes % (A) 19 %; MCH 30.9 pg (25.0-35.0); MCHC 33.4 g/dL (31.0-37.0); MCV 92.7 fL (80.0-100.0); Mean Platelet Volume 7.4; Monocytes # (A) 0.4 k/uL (0-1.0); Monocytes % (A) 5 %; Neutrophils # (A) 4.6 k/uL (1.3-7.7); Neutrophils % (A) 67 %; Platelet Count 190 k/uL (150-450); RBC 4.42 m/uL (4.30-5.90); RDW 13.3 % (11.5-15.5)
[2022-10-25] MEDS ORDERED: ALPRAZolam 0.25 MG TAB PO PRN (08:47)
[2022-10-25] MEDS ORDERED: ALPRAZolam 0.5 MG TAB PO PRN (08:47)
[2022-10-25] MEDS ORDERED: NITROGLYCERIN SL TABS 0.4 MG TAB SUBLINGUAL PRN (08:47)
[2022-10-25] MEDS ORDERED: ASPIRIN 81 MG PO STA (08:47)
[2022-10-25] MEDS ORDERED: ATORVASTATIN 80 MG TAB PO STA (08:47)
--- NOTE | 2022-10-25 08:47 | P.PN ---
Subjective Progress Note Date: 10/25/22 History of present illness: This is an 82-year-old male patient of Dr. Mortensen with a past medical history of hypertension and PVCs on metoprolol. We have been asked to evaluate the patient for syncopal episode and bradycardia. Patient states that he was outside riding a 4 grimm was not feeling well walked into the house went to sit down because he was having difficulty walking and his balance was off. He ended up passing out and could not remember anything after that. His granddaughter was present who is a nurse and found that he was pulseless for about 30 seconds. CPR was started by the time EMS arrived patient was awake with a pulse. He still feels weak this morning but no lightheadedness or dizziness, no other syncopal episodes. EKG sinus rhythm at 54 bpm Chest x-ray: No acute findings CAT scan of the brain and cervical spine revealed age-indeterminate suspect acute subacute CVA of the left inferior occipital lobe. No evidence of cervical spine fracture. Moderate multilevel degenerative disc disease Carotid ultrasound revealed less than 50% stenosis in both proximal ICAs. CBC is unremarkable. Sodium 139, potassium 3.6, BUN 16 creatinine 1.05. Initial lactic acid 2.1 and today 1.1. Magnesium 1.5. Troponin negative 3. ProBNP 207. Home cardiac medications: Aspirin 162 mg daily, Lipitor 20 g at bedtime, hydrochlorothiazide 12.5 mg daily, losartan 50 mg daily, Lopressor 50 mg twice daily Nuclear stress test in 2019 was normal 10/24 Yesterday, Lexiscan stress test for today was canceled because of the report of the CAT scan. Patient apparently had a stroke 2-1/2 weeks ago was treated as [facility]. Also he apparently had one episode of atrial fibrillation in the past and also had an episode at the [facility] 2 and half weeks ago but was not started on anticoagulation. Heart rate is running in the 60s to 70s, blood pressure 166/74. BUN 13 creatinine 0.92. Hemoglobin A1c MRI of the brain revealed acute left sided brainstem and periventricular h yperintensity compatible with acute ischemic changes. Chronic old white matter ischemic changes in the periventricular white matter. Echocardiogram reveals normal LV systolic function. 10/25 Patient is seen today in follow-up. Patient was started on eliquis yesterday due to recent episode of atrial fibrillation. We are unable to corroborate this finding on polar maps. Estimated LVEF 72%. Discussed cardiac catheterization with the patient. However he did receive 2 doses of eliquis yesterday. We may have to postpone cardiac catheterization until tomorrow. Plan is to discuss this with Dr. Mortensen his primary wind turbine controls engineer and make plan for cardiac catheterization either late today or tomorrow. Physical examination: Gen: This is an 82-year-old male resting in bed appears to be comfortable no acute distress VS: reviewed HEENT: Head is atraumatic, normocephalic. Pupils equal, round. Sclerae is anicteric. NECK: Supple. No JVD. Right carotid bruit LUNGS: Clear to auscultation. No wheezes or rhonchi. No intercostal retractions. HEART: Regular rate and rhythm. No murmur. ABDOMEN: Soft No tenderness. EXTREMITIES: No pedal edema. No calf tenderness. NEUROLOGICAL: Patient is awake, alert and oriented x3. Assessment: Syncopal episode with pulselessness requiring brief CPR Suspected acute/subacute CVA in the left inferior occipital lobe on CT Bradycardia Paroxysmal Atrial fibrillation diagnosed at [facility] 2 and half weeks ago Hypertension PVCs Plan: Continue telemetry monitoring Continue patient's home cardiac medications except for Lopressor which has been placed on hold due to bradycardia Discontinue eliquis today Schedule patient for cardiac catheterization tomorrow with Dr. Delfina Mortensen Further recommendations to follow based upon clinical course Nurse practitioner note has been reviewed, I agree with documented findings and plan of care. Patient was seen and examined. Objective - Vital Signs Vital signs: Vital Signs Temp 98.0 F 10/25/22 04:00 Pulse 83 10/25/22 04:00 Resp 18 10/25/22 04:00 BP 152/69 10/25/22 04:00 Pulse Ox 95 10/25/22 04:00 FiO2 Intake & Output 10/24/22 10/25/22 10/25/22 18:59 06:59 18:59 Intake Total 576 Balance 576 Intake: Oral 576 Other: Voiding Method Toilet # Voids 2 2 - Labs CBC & Chem 7: 10/24/22 06:58 10/24/22 06:58 Labs: Abnormal Lab Results - Last 24 Hours (Table) 10/24/22 10/24/22 10/24/22 Range/Units 06:58 11:32 16:38 POC Glucose (mg/dL) 152 H 135 H (70-110) mg/dL Hemoglobin A1c 6.7 H (0.0-6.0) % 10/24/22 10/25/22 Range/Units 20:41 06:03 POC Glucose (mg/dL) 139 H 148 H (70-110) mg/dL Hemoglobin A1c (0.0-6.0) %
[2022-10-25 08:53] LABS: African American GFR (CKD) >90 (>60 ml/min/1.73 sqM); Anion Gap 10 mmol/L; Blood Urea Nitrogen 13 mg/dL (9-20); Calcium 8.7 mg/dL (8.4-10.2); Carbon Dioxide 23 mmol/L (22-30); Chloride 106 mmol/L (98-107); Glucose 164 mg/dL (74-99); Non-African American GFR(CKD) 80 (>60 ml/min/1.73 sqM); Potassium 3.7 mmol/L (3.5-5.1); Sodium 139 mmol/L (137-145)
[2022-10-25 11:54] LABS: Glucose,Whole Blood 118 mg/dL (70-110)
--- NOTE | 2022-10-25 13:53 | PN ---
PROGRESS NOTE DATE OF SERVICE: 10/25/2022 SUBJECTIVE: This 82-year-old gentleman was admitted with dizziness and unresponsiveness. He is being evaluated for cardiac pathology also. Stress test was abnormal. No chest pain, no palpitation. OBJECTIVE: VITAL SIGNS: Pulse is 65, blood pressure 116/74, respirations 18. CHEST: Few scattered rhonchi and crackles. ABDOMEN: Soft, nontender. NERVOUS SYSTEM: No focal deficits. LABORATORY DATA: Reviewed. ASSESSMENT: 1. Dizziness and unresponsive, rule out TIA versus cardiac syncope. 2. Abnormal stress test. 3. History of recent left inferior occipital lobe stroke. 4. Cardiac arrest for 20 seconds with CPR. 5. Atrial fibrillation. 6. Elevated lactic acid. 7. Diabetes mellitus, type 2. 8. Multiple medical issues. RECOMMENDATIONS AND DISCUSSION: Recommended to continue current management and treatment, otherwise cardiac ablation by Cardiology. I would recommend repeat labs. Increase ambulation. Closely follow with Neurology. Prognosis extremely guarded because of multiple complex medical issues. Further recommendations to follow. MMODL / IJN: [id number] /
[2022-10-25 16:36] LABS: Glucose,Whole Blood 99 mg/dL (70-110)
--- NOTE | 2022-10-25 16:49 | P.PN ---
Subjective Progress Note Date: 10/25/22 He was seen at bedside and he was sitting up in the chair and states she's doing well. Denies of any new neurological issues at. He feels back to baseline. I personally reviewed his records from the outside hospital in which on 10/07/2022 he had a CTA head/neck and MRI are reported as abrupt occlusion of the P1 segment of the left posterior cerebral artery correlating with an ischemic zone in the left occipital. Other sclerosis in the carotid bulb and internal carotid artery origins without significant stenosis. There is less than 50% stenosis. MRI of the brain is reported as tapered narrowing of the P1 segment. The body of the MRA report is reported this diffusion restriction in the left occipital lobe as well as left inferior medial temporal lobe in the posterior cerebral artery vascular territory. Objective - Vital Signs Vital signs: Vital Signs Temp 98.2 F 10/25/22 12:00 Pulse 64 10/25/22 12:00 Resp 16 10/25/22 12:00 BP 169/74 10/25/22 12:00 Pulse Ox 98 10/25/22 12:00 FiO2 Intake & Output 10/24/22 10/25/22 10/25/22 18:59 06:59 18:59 Intake Total 576 240 Balance 576 240 Intake: Oral 576 240 Other: Voiding Method Toilet # Voids 2 2 1 - Exam GENERAL: The patient is lying in bed and is not in acute distress. NEUROLOGICAL: Higher mental function: The patient is awake, alert, oriented to self, place. He stated the year is 2002 and correctly stated the current month. Patient is following simple commands. No aphasia and no neglect. Cranial nerves: The pupils are round, equal and reactive to light. Visual madera is right homonymous hemianopsia. Extraocular movement is intact no nystagmus is noted. Facial sensation is normal to touch throughout. The facial strength is normal throughout. Tongue is midline and moved [id number] without any difficulty. No dysarthria is noted. Shoulder shrug is normal bilaterally. Motor: The strength is 5 over 5 throughout. Normal tone and bulk. Cerebellum: Normal finger to nose heel to chin bilaterally. Sensation: Sensation is normal to touch throughout. - Labs CBC & Chem 7: 10/25/22 07:48 10/25/22 07:48 Labs: Abnormal Lab Results - Last 24 Hours (Table) 10/24/22 10/24/22 10/25/22 Range/Units 16:38 20:41 06:03 Glucose (74-99) mg/dL POC Glucose (mg/dL) 135 H 139 H 148 H (70-110) mg/dL 10/25/22 10/25/22 Range/Units 07:48 11:46 Glucose 164 H (74-99) mg/dL POC Glucose (mg/dL) 118 H (70-110) mg/dL Assessment and Plan Assessment: * Acute to subacute ischemic stroke Present with transient right arm weakness, dizziness, gait imbalance. MRI pain reveals acute stroke over the left medial pontine region as well as the periventricular/medial temporal occipital region. It seems at outside hospital at [place] he had acute ischemic stroke over the left occipital and left medial temporal. * Syncopal spell, unclear cause, rule out arrhythmia versus seizure. Family states that patient had "cardiac arrest requiring CPR for 25 seconds". * Recent history of CVA 2.5 weeks ago, treated at [facility] * Acute/subacute stroke over the left inferior occipital lobe on recent CT and on examination has right homonymous hemianopsia * History of atrial fibrillation (per EKG from 02/18/2019) and according to family has recent A-fib while hospitalized 2.5 weeks ago, currently not on anticoagulation * Very low normal vitamin B12 * Hypertension * Diabetes * Memory loss related to recent CVA Plan: * MRI brain: It is reported as acute left brainstem in the paraventricular hyperintensity compatible with acute ischemic changes. I personally reviewed the MRI and I do agree. Patient does have acute ischemia over the left medial pontine, left periventricular region in the territory of the temporal occipital region. * EEG: Is normal. There is no focal slowing, from distress or seizure on the EEG. * Patient's family reports of patient had a cardiac arrest requiring CPR for "25 seconds". Patient does have loop recorder. Cardiology consulted for loop re kenton interrogation. Patient also has history of atrial fibrillation. Cardiology to assess need for anticoagulation. * It appears patient had extensive workup performed at [facility] just 2.5 weeks ago. Per family, he had a NOHEMI performed as well: * I personally reviewed his records from the outside hospital in which on 10/07/2022 he had a CTA head/neck and MRI are reported as abrupt occlusion of the P1 segment of the left posterior cerebral artery correlating with an ischemic zone in the left occipital. Other sclerosis in the carotid bulb and internal carotid artery origins without significant stenosis. There is less than 50% stenosis. MRI of the brain is reported as tapered narrowing of the P1 segment. In the body of the MRA report is reported this diffusion restriction in the left occipital lobe as well as left inferior medial temporal lobe in the posterior cerebral artery vascular territory. * Fasting a.m. lipid panel: Triglyceride 140, cholesterol is 133, LDL 71, HDL is 33 at. Hemoglobin A1c 6.7 * Serum folate is 9.0. Vitamin B12 is 255 (normal is 200-944). Since the bottom B12 is very low normal I will give him a vitamin B12 IM for today and tomorrow and then after that by mouth 1000mcg daily. * Carotid duplex was reported as moderate at this chronic changes at the bilateral carotid bifurcation. There may be a mild less than 50% stenosis of both proximal ICA. Doppler measurement do not suggest hemodynamically significant internal carotid artery stenosis on either side. Note the rock mason apprentice indicates an arrhythmia during scanning. * Patient currently on aspirin [address] Aaron started him on Plavix 75 mg daily for now pending further testing. I spoke with cardiology team regarding the use of anticoagulation. Recommend use of anticoagulation 3 days from now because of recent stroke to avoid any hemorrhagic conversion. Once anticoagulation is started no need for use of Plavix. It seems the patient was started on eliquis 5mg bid by cardiology and received 2 doses then stopped for cardiac cath. * Continue Lipitor 20 mg daily. * DVT prophylaxis: Was on Eliquis but placed on hold. The plan is discussed with patient and his nurse. I have also updated the patient's daughter via phone. Time with Patient: Less than 30
[2022-10-25] MEDS ORDERED: ERGOCALCIFEROL 1,250 MCG (50,000 IU) CAPSULE PO SCH (17:00)
[2022-10-25 20:11] LABS: Glucose,Whole Blood 175 mg/dL (70-110)
[2022-10-25] MEDS: ATORVASTATIN 20 MG TAB PO SCH (20:26)
[2022-10-26] MEDS: metFORMIN 500 MG TAB PO SCH (04:49)
[2022-10-26] MEDS ORDERED: ASPIRIN 81 MG PO STA (06:02)
[2022-10-26] MEDS ORDERED: ATORVASTATIN 80 MG TAB PO STA (06:03)
[2022-10-26 06:08] LABS: Glucose,Whole Blood 152 mg/dL (70-110)
[2022-10-26] MEDS: CYANOCOBALAMIN 500 MCG TAB PO SCH (06:10)
[2022-10-26] MEDS: LOSARTAN 50 MG TAB PO SCH (06:10)
[2022-10-26] MEDS: GABAPENTIN 300 MG CAP PO SCH ×2 (06:10→21:00)
[2022-10-26] MEDS: INSULIN ASPART (NovoLOG) 100 UNIT/ML VIAL SQ SCH ×4 (06:10→21:05)
[2022-10-26] MEDS: ASPIRIN 81 MG PO SCH (06:11)
[2022-10-26] MEDS: CLOPIDOGREL 75 MG TAB PO SCH (06:11)
[2022-10-26] MEDS ORDERED: HEPARIN SODIUM,PORCINE 10,000 UNIT in SODIUM CHLORIDE 0.9% 1,000 ML IRRIGATION PRN (07:00)
[2022-10-26] MEDS ORDERED: HEPARIN SODIUM,PORCINE 2,500 UNIT in SODIUM CHLORIDE 0.9% 250 ML IRRIGATION PRN (07:00)
[2022-10-26] MEDS ORDERED: MIDAZOLAM 2 MG/2 ML VIAL IV ONE ×2 (07:36)
[2022-10-26] MEDS ORDERED: fentaNYL (PF) 50 MCG/ML 2 ML AMP IV ONE ×3 (07:36)
[2022-10-26] MEDS ORDERED: LIDOCAINE 1% INJ 10MG/ML (5 ML VIAL-PF) SQ ONE (07:37)
[2022-10-26] MEDS ORDERED: IV FLUID CONTINUATION 900 ML IV ONE (07:37)
[2022-10-26] MEDS: HEPARIN SODIUM 1,000 UN/ML (10ML VL) IV ONE ×2 (07:48→08:15)
[2022-10-26] MEDS ORDERED: CLOPIDOGREL 75 MG TAB PO ONE (08:32)
[2022-10-26] MEDS ORDERED: MAG HYDROX/AL HYDROX/SIMETH 30 ML CUP PO PRN (08:51)
[2022-10-26] MEDS ORDERED: ATROPINE SULFATE 0.1 MG/ML 10ML SYRINGE IV PRN (08:51)
[2022-10-26] MEDS ORDERED: NITROGLYCERIN SL TABS 0.4 MG TAB SUBLINGUAL PRN (08:51)
[2022-10-26] MEDS ORDERED: ZOLPIDEM 5 MG TAB PO PRN (08:51)
[2022-10-26] MEDS ORDERED: RX INFO: IV CONTRAST WAS GIVEN 1 EACH MISC MISCELLANE PRN (08:51)
--- NOTE | 2022-10-26 08:56 | P.PCN ---
Date of Procedure: 10/26/22 Operative Findings: PERCUTANEOUS CORONARY INTERVENTION Performing physician Alexander Nevarez M.D. Procedure Performed: 1. Successful stenting of the proximal and mid LAD using 3.0 x 38 mm Xience drug-eluting stent with an excellent angiographic results with adjunctive use of imaging Indication: Syncope in this 82-year-old gentleman who underwent a stress test and that came in to be abnormal Approach: Right radial approach Complications: None Level of Sedation: Moderate with a sedation length of 40 minutes Procedure Discussion: After diagnostic heart catheterization was performed anticoagulation was initiated using heparin with continuous ACT monitoring. The left main was engaged using JL4 guiding catheter. I did wire the LAD using a run-through wire. Intravascular ultrasound was performed and showed diameter of the LAD in the mid about 3 mm and proximal 3.5 mm. I predilated using a 3 mm balloon before I deployed 3.0 x 38 mm stent with the stent was positioned under fluoroscopy guidance and deployed under fluoroscopy guidance. Post dilated using 3.5 mm noncompliant balloon. Final angiogram showed excellent angiographic results and the procedure was completed was no complication Postprocedure Management: 1. Dual antiplatelet therapy using aspirin and Plavix for 12 months 2. PCI of the LCx and FFR of the RCA 3. Follow-up with the patient
[2022-10-26] MEDS ORDERED: IOPAMIDOL-370 200ML BTL INJ ONE (08:57)
--- NOTE | 2022-10-26 08:57 | CC ---
CARDIAC CATHETERIZATION REPORT INDICATIONS: Syncope with abnormal stress test. PROCEDURE NOTE: After obtaining informed consent, left heart catheterization and coronary angiogram were performed via right radial artery using standard Kelsey catheters. The patient tolerated the procedure well without any obvious immediate complications. The patient received moderate conscious sedation. Total sedation time was 16 minutes. Right radial artery access was obtained using modified Seldinger technique. A 6-Israeli sheath was placed. Catheters and wires were floated into the ascending aorta under fluoroscopic guidance. FINDINGS: 1. Hemodynamics: Left ventricular end-diastolic pressure is 20 mm. There is no significant gradient across the aortic valve. 2. Left Ventriculogram: Left ventriculogram is not performed. 3. Angiographic Data: a.Right coronary artery: Right coronary artery is a large dominant vessel. There are [id number] collaterals to the distal RCA. There is a moderate area of stenosis in the mid portion which seems to be a 50% to 60% stenosis. b.Left main coronary artery appears calcified but is free of significant stenosis. Divides into left anterior descending coronary artery and circumflex coronary artery. LAD shows a long segment of stenosis that involves proximal and mid LAD that involves the proximal LAD. There is an 80% to 90% stenosis and there is a second segmental lesion that is another 70% to 80% stenosis. Circumflex coronary artery gives off 3 OM branches. The 3rd OM branch has a 70% to 80% stenosis. Proximal circ has moderate stenosis. CONCLUSIONS: Three-vessel coronary artery disease as described above with critical stenosis involving LAD. PLAN: I reviewed angiographic data with Dr. Nevarez, the on-call student development coordinator, and I spoke to the patient and explained to him the cardiac catheterization findings. Both the patient and I have opted for a catheter based revascularization at this time given his advanced age and patient's wishes. Dr. Nevarez will do angioplasty of the LAD and perform an FFR of the RCA and if that comes back significant, stent the RCA also and treat the circ lesion medically and repeat a stress test down the road. MMODL / IJN: [id number] /
[2022-10-26] MEDS ORDERED: SODIUM CHLORIDE 0.9% 1,000 ML in EMPTY BAG 1 BAG IV SCH (09:00)
[2022-10-26] MEDS ORDERED: LOSARTAN 50 MG TAB PO STA (10:21)
[2022-10-26 11:12] LABS: Basophils % (A) 0 %; Eosinophils # (A) 0.4 k/uL (0-0.7); Eosinophils % (A) 6 %; HCT 41.6 % (39.0-53.0); HGB 14.2 gm/dL (13.0-17.5); Lymphocytes # (A) 1.5 k/uL (1.0-4.8); Lymphocytes % (A) 22 %; MCH 32.3 pg (25.0-35.0); MCHC 34.1 g/dL (31.0-37.0); MCV 94.8 fL (80.0-100.0); Mean Platelet Volume 7.2; Monocytes # (A) 0.3 k/uL (0-1.0); Monocytes % (A) 4 %; Neutrophils # (A) 4.5 k/uL (1.3-7.7); Neutrophils % (A) 67 %; Platelet Count 199 k/uL (150-450); RBC 4.39 m/uL (4.30-5.90); WBC 6.7 k/uL (3.8-10.6)
[2022-10-26 11:31] LABS: African American GFR (CKD) >90 (>60 ml/min/1.73 sqM); Anion Gap 9 mmol/L; Blood Urea Nitrogen 14 mg/dL (9-20); Calcium 8.8 mg/dL (8.4-10.2); Carbon Dioxide 24 mmol/L (22-30); Chloride 105 mmol/L (98-107); Non-African American GFR(CKD) 84 (>60 ml/min/1.73 sqM); Potassium 3.9 mmol/L (3.5-5.1); Sodium 138 mmol/L (137-145)
[2022-10-26 11:46] LABS: Glucose,Whole Blood 132 mg/dL (70-110)
[2022-10-26 11:55] LABS: Glucose 172 mg/dL (74-99)
[2022-10-26 12:08] VITALS: BMI 24.8
--- NOTE | 2022-10-26 13:26 | P.PN ---
Subjective Progress Note Date: 10/26/22 Patient came back from a cardiac cath and is seems that the patient had successful stenting of the proximal LAD. Otherwise patient denies of any other neurological issues. Objective - Vital Signs Vital signs: Vital Signs Temp 97.8 F 10/26/22 09:05 Pulse 58 L 10/26/22 12:00 Resp 16 10/26/22 12:00 BP 124/63 10/26/22 12:00 Pulse Ox 97 10/26/22 12:00 FiO2 Intake & Output 10/25/22 10/26/22 10/26/22 18:59 06:59 18:59 Intake Total 350 200 Output Total 0 Balance 350 200 Weight 74.1 kg Intake: IV 200 Oral 350 Output: Gastric Drainage 0 Urine 0 Stool 0 Urine/Stool Mix 0 Emesis 0 Oral Regurgitation 0 Other 0 Other: Voiding Method Toilet Toilet # Voids 2 1 0 # Bowel Movements 0 - Exam GENERAL: The patient is lying in bed and is not in acute distress. NEUROLOGICAL: Higher mental function: The patient is awake, alert, oriented to self, place. He stated the year is 2002 and correctly stated the current month. Patient is following simple commands. No aphasia and no neglect. Cranial nerves: The pupils are round, equal and reactive to light. Visual madera is right homonymous hemianopsia. Extraocular movement is intact no nystagmus is noted. Facial sensation is normal to touch throughout. The facial strength is normal throughout. Tongue is midline and moved [id number] without any difficulty. No dysarthria is noted. Shoulder shrug is normal bilaterally. Motor: The strength is 5 over 5 throughout. Normal tone and bulk. Cerebellum: Normal finger to nose heel to chin bilaterally. Sensation: Sensation is normal to touch throughout. - Labs CBC & Chem 7: 10/26/22 10:32 10/26/22 10:32 Labs: Abnormal Lab Results - Last 24 Hours (Table) 10/25/22 10/26/22 10/26/22 Range/Units 20:10 06:03 10:32 Glucose 172 H (74-99) mg/dL POC Glucose (mg/dL) 175 H 152 H (70-110) mg/dL 10/26/22 Range/Units 11:45 Glucose (74-99) mg/dL POC Glucose (mg/dL) 132 H (70-110) mg/dL Assessment and Plan Assessment: * Acute to subacute ischemic stroke Present with transient right arm weakness, dizziness, gait imbalance. MRI pain reveals acute stroke over the left medial pontine region as well as the periventricular/medial temporal occipital region. It seems at outside hospital at [place] he had acute ischemic stroke over the left occipital and left medial temporal. * Stenting of the proximal LAD on 10/26/22 * Syncopal spell, unclear cause, rule out arrhythmia. No seizure on EEG. Family states that patient had "cardiac arrest requiring CPR for 25 seconds". * Recent history of CVA 2.5 weeks ago, treated at [facility] * Acute/subacute stroke over the left inferior occipital lobe on recent CT and on examination has right homonymous hemianopsia * History of atrial fibrillation (per EKG from 02/18/2019) and according to family has recent A-fib while hospitalized 2.5 weeks ago, currently not on anticoagulation * Very low normal vitamin B12 * Hypertension * Diabetes * Memory loss related to recent CVA Plan: * MRI brain: It is reported as acute left brainstem in the paraventricular hyperintensity compatible with acute ischemic changes. I personally reviewed the MRI and I do agree. Patient does have acute ischemia over the left medial pontine, left periventricular region in the territory of the temporal occipital region. * EEG: Is normal. There is no focal slowing, from distress or seizure on the EEG. * Patient's family reports of patient had a cardiac arrest requiring CPR for "25 seconds". Patient does have loop recorder. Cardiology consulted for loop recorder interrogation. Patient also has history of atrial fibrillation. Cardiology to assess need for anticoagulation. * It appears patient had extensive workup performed at [facility] just 2.5 weeks ago. Per family, he had a NOHEMI performed as well: * I personally reviewed his records from the outside hospital in which on 10/07/2022 he had a CTA head/neck and MRI are reported as abrupt occlusion of the P1 segment of the left posterior cerebral artery correlating with an ischemic zone in the left occipital. Other sclerosis in the carotid bulb and internal carotid artery origins without significant stenosis. There is less than 50% stenosis. MRI of the brain is reported as tapered narrowing of the P1 segment. In the body of the MRA report is reported this diffusion restriction in the left occipital lobe as well as left inferior medial temporal lobe in the posterior cerebral artery vascular territory. * I did not see any notes about NOHEMI. * Fasting a.m. lipid panel: Triglyceride 140, cholesterol is 133, LDL 71, HDL is 33 at. Hemoglobin A1c 6.7 * Serum folate is 9.0. Vitamin B12 is 255 (normal is 200-944). Since the bottom B12 is very low normal I will give him a vitamin B12 IM for today and tomorrow and then after that by mouth 1000mcg daily. * Carotid duplex was reported as moderate at this chronic changes at the bilateral carotid bifurcation. There may be a mild less than 50% stenosis of both proximal ICA. Doppler measurement do not suggest hemodynamically s ignificant internal carotid artery stenosis on either side. Note the after school driver indicates an arrhythmia during scanning. * Patient currently on aspirin [address] Aaron started him on Plavix 75 mg daily for now pending further testing. I spoke with cardiology team regarding the use of anticoagulation. Recommend use of anticoagulation 2 days from now because of recent stroke to avoid any hemorrhagic conversion. Once anticoagulation is started no need for use of ASA from neurological pe rspective, since cardiology has started him on ASA and Plavix. There is increase risk of bleed with anticoagulation and dual antiplatlete but will defer final decision to cardiology team. * Continue Lipitor 20 mg daily. * DVT prophylaxis: On heparin drip. The plan is discussed with patient. Otherwise no additional work-up. Time with Patient: Less than 30
[2022-10-26 16:26] LABS: Glucose,Whole Blood 127 mg/dL (70-110)
--- NOTE | 2022-10-26 17:57 | PN ---
PROGRESS NOTE DATE OF SERVICE: 10/26/2022 SUBJECTIVE: This is an 82-year-old gentleman admitted with dizziness and unresponsiveness and multiple complex medical issues. The MRI which I reviewed personally showed a left- sided midbrain lesion. Otherwise, Cardiology performed a stress test which was abnormal. The patient underwent cardiac catheterization as well as LAD stenting by Dr. Nevarez. Dual antiplatelet treatment for using aspirin, Plavix for 12 months recommended. Please note, cardiac cath showed multiple abnormalities. PAST MEDICAL HISTORY: Reviewed. REVIEW OF SYSTEMS: A 14-point review is negative except as mentioned earlier. CURRENT MEDICATIONS: Reviewed include aspirin . Dose and rest of medication reviewed. PHYSICAL EXAMINATION: VITAL SIGNS: Pulse 58, blood pressure , respirations 16. CHEST: Clear to auscultation. CARDIOVASCULAR: S1 and S2. ABDOMEN: Soft. NERVOUS SYSTEM: No focal deficits. LABORATORY DATA: Labs are reviewed. ASSESSMENT: 1. Dizziness and unresponsiveness, possibly cardiac syncope, status post cardiac catheterization and stenting of the LAD. 2. Possible left upper midbrain stroke. 3. Abdominal stress test. 4. History of recent left inferior occipital lobe stroke. 5. Cardiac arrest for 20 seconds with CPR. 6. Atrial fibrillation history. 7. Elevated lactic acid. 8. Diabetes mellitus, type 2. 9. Multiple medical issues. RECOMMENDATIONS AND DISCUSSION: I recommend to continue current medications. Continue symptomatic treatment. Continue with antiplatelet agents. The patient will require anticoagulants as well. Otherwise overall prognosis is extremely guarded because of multiple complex medical issues. Closely follow with Neurology, Cardiology. Further recommendations to follow. MMODL / IJN: [id number] /
[2022-10-26] MEDS: ATORVASTATIN 20 MG TAB PO SCH (21:00)
[2022-10-26 21:04] LABS: Glucose,Whole Blood 196 mg/dL (70-110)
[2022-10-27 05:52] LABS: Glucose,Whole Blood 130 mg/dL (70-110)
[2022-10-27] MEDS: INSULIN ASPART (NovoLOG) 100 UNIT/ML VIAL SQ SCH ×2 (06:45→14:08)
[2022-10-27] MEDS: CLOPIDOGREL 75 MG TAB PO SCH (08:47)
[2022-10-27] MEDS: ASPIRIN 81 MG PO SCH (08:47)
[2022-10-27] MEDS: CYANOCOBALAMIN 500 MCG TAB PO SCH (08:47)
[2022-10-27] MEDS: GABAPENTIN 300 MG CAP PO SCH (08:47)
[2022-10-27 08:51] VITALS: RESP 16
[2022-10-27 08:52] LABS: African American GFR (CKD) >90 (>60 ml/min/1.73 sqM); Non-African American GFR(CKD) 82 (>60 ml/min/1.73 sqM)
[2022-10-27] MEDS ORDERED: LOSARTAN 50 MG TAB PO SCH (09:00)
[2022-10-27] MEDS ORDERED: hydroCHLOROthiazide 25 MG TAB PO SCH (09:00)
[2022-10-27] MEDS ORDERED: APIXABAN 5 MG TAB PO SCH (09:00)
[2022-10-27] MEDS ORDERED: APIXABAN 2.5 MG TABLET PO SCH (09:00)
--- NOTE | 2022-10-27 09:39 | P.PN ---
Subjective Progress Note Date: 10/27/22 History of present illness: This is an 82-year-old male patient of Dr. Mortensen with a past medical history of hypertension and PVCs on metoprolol. We have been asked to evaluate the patient for syncopal episode and bradycardia. Patient states that he was outside riding a 4 grimm was not feeling well walked into the house went to sit down because he was having difficulty walking and his balance was off. He ended up passing out and could not remember anything after that. His granddaughter was present who is a nurse and found that he was pulseless for about 30 seconds. CPR was started by the time EMS arrived patient was awake with a pulse. He still feels weak this morning but no lightheadedness or dizziness, no other syncopal episodes. EKG sinus rhythm at 54 bpm Chest x-ray: No acute findings CAT scan of the brain and cervical spine revealed age-indeterminate suspect acute subacute CVA of the left inferior occipital lobe. No evidence of cervical spine fracture. Moderate multilevel degenerative disc disease Carotid ultrasound revealed less than 50% stenosis in both proximal ICAs. CBC is unremarkable. Sodium 139, potassium 3.6, BUN 16 creatinine 1.05. Initial lactic acid 2.1 and today 1.1. Magnesium 1.5. Troponin negative 3. ProBNP 207. Home cardiac medications: Aspirin 162 mg daily, Lipitor 20 g at bedtime, hydrochlorothiazide 12.5 mg daily, losartan 50 mg daily, Lopressor 50 mg twice daily Nuclear stress test in 2019 was normal 10/24 Yesterday, Lexiscan stress test for today was canceled because of the report of the CAT scan. Patient apparently had a stroke 2-1/2 weeks ago was treated as [facility]. Also he apparently had one episode of atrial fibrillation in the past and also had an episode at the [facility] 2 and half weeks ago but was not started on anticoagulation. Heart rate is running in the 60s to 70s, blood pressure 166/74. BUN 13 creatinine 0.92. Hemoglobin A1c MRI of the brain revealed acute left sided brainstem and periventricular h yperintensity compatible with acute ischemic changes. Chronic old white matter ischemic changes in the periventricular white matter. Echocardiogram reveals normal LV systolic function. 10/25 Patient is seen today in follow-up. Patient was started on eliquis yesterday due to recent episode of atrial fibrillation. We are unable to corroborate this finding on polar maps. Estimated LVEF 72%. Discussed cardiac catheterization with the patient. However he did receive 2 doses of eliquis yesterday. We may have to postpone cardiac catheterization until tomorrow. Plan is to discuss this with Dr. Mortensen his primary right of way buyer and make plan for cardiac catheterization either late today or tomorrow. 10/27 Yesterday, patient underwent cardiac catheterization and stenting of the proximal and mid LAD. He has been started on dual antiplatelet therapy. Due to the fact the patient is also on eliquis for paroxysmal atrial flutter fibrillation, patient will not be discharged on aspirin and will continue only on Plavix and eliquis. Patient denies any new complaints today. He does have an appointment for additional stenting of the left circumflex and FFR of the RCA. He denies having any chest pain. Telemetry has been in sinus rhythm. Heart rate is in the 60s to 80s, blood pressure 136/67. Creatinine 0.83. Physical examination: Gen: This is an 82-year-old male resting in bed appears to be comfortable no acute distress VS: reviewed HEENT: Head is atraumatic, normocephalic. Pupils equal, round. Sclerae is anicteric. NECK: Supple. No JVD. Right carotid bruit LUNGS: Clear to auscultation. No wheezes or rhonchi. No intercostal retractions. HEART: Regular rate and rhythm. No murmur. ABDOMEN: Soft No tenderness. EXTREMITIES: No pedal edema. No calf tenderness. NEUROLOGICAL: Patient is awake, alert and oriented x3. Assessment: Syncopal episode with pulselessness requiring brief CPR Suspected acute/subacute CVA in the left inferior occipital lobe on CT, recent C VA Bradycardia Paroxysmal Atrial fibrillation diagnosed at [facility] 2 and half weeks ago Hypertension PVCs Plan: Patient is cleared from cardiology for discharge with plan to continue on eliq uis, Plavix, atorvastatin, losartan Patient is not on beta sheyla due to bradycardia and no aspirin due to the use of eliquis and Plavix. Patient will follow-up with Dr. Maya in one week. Nurse practitioner note has been reviewed, I agree with documented findings and plan of care. Patient was seen and examined. Objective - Vital Signs Vital signs: Vital Signs Temp 98.2 F 10/27/22 08:45 Pulse 80 05/26/23 08:45 Resp 16 10/27/22 08:45 BP 136/67 10/27/22 08:45 Pulse Ox 96 10/27/22 08:45 FiO2 Intake & Output 10/26/22 10/27/22 10/27/22 18:59 06:59 18:59 Intake Total 440 120 Output Total 0 0 Balance 440 0 120 Weight 74.1 kg Intake: IV 200 Oral 240 120 Output: Gastric Drainage 0 Urine 0 Stool 0 0 Urine/Stool Mix 0 Emesis 0 Oral Regurgitation 0 Other 0 Other: Voiding Method Toilet Toilet # Voids 1 0 # Bowel Movements 0 - Labs CBC & Chem 7: 10/26/22 10:32 10/27/22 07:32 Labs: Abnormal Lab Results - Last 24 Hours (Table) 10/26/22 10/26/22 10/26/22 Range/Units 10:32 11:45 16:23 Glucose 172 H (74-99) mg/dL POC Glucose (mg/dL) 132 H 127 H (70-110) mg/dL 10/26/22 10/27/22 Range/Units 21:03 05:44 Glucose (74-99) mg/dL POC Glucose (mg/dL) 196 H 130 H (70-110) mg/dL
[2022-10-27 11:47] LABS: Glucose,Whole Blood 119 mg/dL (70-110)
[2022-10-27 12:23] VITALS: BP 143/69; PULSE 68; TEMP 98.2
== END 2022-10-27 14:07 | disposition home or self-care (01) | DRG 983 ==
LOC: EC 11:59 → 3SCARD 13:26
PROVIDERS: ADMIT Internal Medicine; ATTEND Internal Medicine
PROC: B2111ZZ Fluoroscopy of Multiple Coronary Arteries using Low Osmolar Contrast (ICD-10-PCS; 2022-10-26)
PROC: B2151ZZ Fluoroscopy of Left Heart using Low Osmolar Contrast (ICD-10-PCS; 2022-10-26)
PROC: 027034Z Dilation of Coronary Artery, One Artery with Drug-eluting Intraluminal Device, Percutaneous Approach (ICD-10-PCS; principal; 2022-10-26 07:30)
PROC: 4A033BC Measurement of Arterial Pressure, Coronary, Percutaneous Approach (ICD-10-PCS; 2022-10-26 07:30)
PROC: 4A023N7 Measurement of Cardiac Sampling and Pressure, Left Heart, Percutaneous Approach (ICD-10-PCS; 2022-10-26 07:30)
DX: I63.532 Cerebral infarction due to unspecified occlusion or stenosis of left posterior cerebral artery (principal); H53.461 Homonymous bilateral field defects, right side; E11.42 Type 2 diabetes mellitus with diabetic polyneuropathy; I48.0 Paroxysmal atrial fibrillation; I10 Essential (primary) hypertension; G83.21 Monoplegia of upper limb affecting right dominant side; E53.8 Deficiency of other specified B group vitamins; Z86.74 Personal history of sudden cardiac arrest; I49.3 Ventricular premature depolarization; M50.30 Other cervical disc degeneration, unspecified cervical region; E83.42 Hypomagnesemia; M16.0 Bilateral primary osteoarthritis of hip; I49.1 Atrial premature depolarization; R94.39 Abnormal result of other cardiovascular function study; R41.3 Other amnesia; K21.9 Gastro-esophageal reflux disease without esophagitis; I25.10 Atherosclerotic heart disease of native coronary artery without angina pectoris; R26.89 Other abnormalities of gait and mobility; I49.9 Cardiac arrhythmia, unspecified; R42 Dizziness and giddiness; W19.XXXA Unspecified fall, initial encounter; Z86.73 Personal history of transient ischemic attack (TIA), and cerebral infarction without residual deficits; Y92.009 Unspecified place in unspecified non-institutional (private) residence as the place of occurrence of the external cause; Z79.84 Long term (current) use of oral hypoglycemic drugs; Z79.891 Long term (current) use of opiate analgesic; Z79.82 Long term (current) use of aspirin; Z87.19 Personal history of other diseases of the digestive system; Z79.899 Other long term (current) drug therapy; Z82.49 Family history of ischemic heart disease and other diseases of the circulatory system
CPT/HCPCS: 36415; 70450; 70551; 71045; 72125; 72170; 78452; 80048; 80053; 80061; 82565; 82607; 82746; 83036; 83605; 83735; 83880; 84484; 85025; 85610; 85730; 92978; 93005; 93017; 93306; 93458; 93880; 94760; 95816; 96361; 96365; 96375; 99291

== ENCOUNTER 2022-11-02 07:59 | Inpatient (IN) | payer MEDICARE ==
[2022-11-02 08:33] LABS: Basophils % (A) 0 %; Eosinophils # (A) 0.1 k/uL (0-0.7); Eosinophils % (A) 1 %; HCT 34.6 % (39.0-53.0); HGB 11.9 gm/dL (13.0-17.5); Lymphocytes # (A) 0.3 k/uL (1.0-4.8); Lymphocytes % (A) 6 %; MCH 31.2 pg (25.0-35.0); MCHC 34.3 g/dL (31.0-37.0); Mean Platelet Volume 7.4; Monocytes # (A) 0.4 k/uL (0-1.0); Monocytes % (A) 7 %; Neutrophils # (A) 4.3 k/uL (1.3-7.7); Neutrophils % (A) 84 %; Platelet Count 186 k/uL (150-450); RDW 13.2 % (11.5-15.5); WBC 5.1 k/uL (3.8-10.6)
[2022-11-02 08:43] LABS: Partial Thromboplastin Time 24.4 sec (22.0-30.0); Prothrombin Time 10.8 sec (9.0-12.0)
--- NOTE | 2022-11-02 08:44 | XR ---
EXAMINATION TYPE: XR chest 2V DATE OF EXAM: 11/02/2022 COMPARISON: 10/22/2022 HISTORY: 82-year-old male with cough TECHNIQUE: AP and lateral views FINDINGS: Loop recorder device projects at the left side of the heart. Low lung volumes with some crowded vascu lar markings. This may accentuate the heart size which is upper limits of normal. Interstitial promin ence is unchanged. No zulma consolidation or pleural effusion seen. Loss of the subacromial space of the right shoulder compatible chronic full-thickness rotator cuff tear. IMPRESSION: Hypoventilatory changes in addition to some chronic changes. No definite acute process.
--- NOTE | 2022-11-02 08:44 | ED ---
General Adult HPI - General Chief complaint: Weakness Stated complaint: weakness Time Seen by Provider: 11/02/22 08:01 Source: patient, RN notes reviewed, old records reviewed Mode of arrival: EMS Limitations: no limitations - History of Present Illness Initial comments: Patient is a 82-year-old male with past medical history remarkable for diabetes, hypertension, prior stroke, recently diagnosed A. fib on eliquis, recent LAD cardiac stenting following a cardiac arrest outside of the hospital on 10/22/2022 was discharged home last Sunday and presents today with over concern for generalized weakness. Initially presented to [facility] last night complaining of his symptoms of generalized weakness. Workup was remarkable for an elevated troponin of 0.7 with a recent history of cardiac catheterization and stenting. No obvious acute EKG changes. CT imaging of the brain negative for any acute intracranial process. Was transferred here for further evaluation. Was scheduled also to receive additional cardiac stents next Sunday. States the weakness was all yesterday which is why he presents emergency department. Only other symptoms as a mild nonproductive cough. Denies chest pain, abdominal pain, nausea, vomiting. Denies any leg swelling. Denies any orthopnea. Denies any PND. No known sick contacts. Presents for further evaluation at this time.. - Related Data Home Medications Medication Instructions Recorded Confirmed Atorvastatin [Lipitor] 20 mg PO HS 10/22/22 11/02/22 Ergocalciferol (Vitamin D2) 1,250 mcg PO WE 10/22/22 11/02/22 [Drisdol (50,000 Iu)] Gabapentin 600 mg PO BID 10/22/22 11/02/22 hydroCHLOROthiazide 12.5 mg PO DAILY 10/22/22 11/02/22 Previous Rx's Medication Instructions Recorded Apixaban [Eliquis] 2.5 mg PO BID #180 tab 10/27/22 Clopidogrel [Plavix] 75 mg PO DAILY #90 tab 10/27/22 Losartan [Cozaar] 100 mg PO DAILY #180 tab 10/27/22 metFORMIN HCL 500 mg PO BID #0 10/27/22 Allergies Allergy/AdvReac Type Severity Reaction Status Date / Time No Known Allergies Allergy Verified 11/02/22 08:31 Review of Systems ROS Statement: Those systems with pertinent positive or pertinent negative responses have been documented in the HPI. Review of Systems: CONST: Denies fever EYES: Denies blurry vision ENT: Denies nasal congestion C/V: Denies Chest pain RESP: Denies shortness of breath GI: Denies abdominal pain : Denies dysuria SKIN: Denies rash. MSK: Denies joint pain. NEURO: Denies headache ROS Other: All systems not noted in ROS Statement are negative. Past Medical History Past Medical History: Diabetes Mellitus, GERD/Reflux, Hypertension, Osteoarthritis (OA) Additional Past Medical History / Comment(s): BRADYCARDIA, neuropathy, stroke, History of Any Multi-Drug Resistant Organisms: None Reported Past Surgical History: Appendectomy, Hernia Repair, Orthopedic Surgery, Prostate Surgery Additional Past Surgical History / Comment(s): colonsocopy, maye knee arthroscopy, EGD with diliation, inguinal hernia repair.,. 02/14/19 Manuel fundoplasty. 02/20/19 Exploratory lap r/t perforated bowel. TURP. INCISIONAL HERNIA 02/2022 Past Anesthesia/Blood Transfusion Reactions: No Reported Reaction Additional Past Anesthesia/Blood Transfusion Reaction / Comment(s): no hx blood transfusion Past Psychological History: No Psychological Hx Reported Smoking Status: Never smoker Past Alcohol Use History: Unable to Obtain Past Drug Use History: Unable to Obtain - Past Family History Mother Family Medical History: No Reported History Father Family Medical History: Myocardial Infarction ([place]) General Exam - General Exam Comments Initial Comments: General: Appears in no acute distress. HEAD: Normal with no signs of head trauma. EYES: PERRLA, EOMI, conjunctiva normal, no discharge. ENT: Hearing grossly intact, normal oropharynx. RESPIRATORY: Clear breath sounds bilaterally. No wheezes, rales, or rhonchi. C/V: Regular rate and rhythm. S1 and S2 auscultated, no edema, peripheral pulses 2+ and intact throughout ABD: Abd is soft, nontender, nondistended EXT: Normal range of motion, no obvious deformity SKIN: No rashes or lesions observed on exposed skin. NEURO: Alert and oriented x 4. Cranial nerves II-XII intact. No focal sensory or strength deficits. NIH of 0. GCS 15. Limitations: no limitations Course Vital Signs 11/02/22 11/02/22 11/02/22 08:04 08:06 08:30 Temperature 98.5 F Pulse Rate 77 76 70 Respiratory 18 18 17 Rate Blood Pressure 122/63 122/63 122/63 O2 Sat by Pulse 93 L 94 L 94 L Oximetry 11/02/22 09:17 Temperature Pulse Rate 70 Respiratory Rate Blood Pressure 128/59 O2 Sat by Pulse 96 Oximetry Medical Decision Making - Medical Decision Making Was pt. sent in by a medical professional or institution (, RAE, FRAME EXPANDER, urgent care, hospital, or usp...) When possible be specific @ -No Did you speak to anyone other than the patient for history (EMS, parent, family, police, friend...)? What history was obtained from this source @ -No Did you review nursing and triage notes (agree or disagree)? Why? @ -I reviewed and agree with nursing and triage notes Were old charts reviewed (outside hosp., previous admission, EMS record, old EKG, old radiological studies, urgent care reports/EKG's, usp records)? Report findings @ -Old charts recent admission in October 2022 were reviewed. Differential Diagnosis (chest pain, altered mental status, abdominal pain women, abdominal pain men, vaginal bleeding, weakness, fever, dyspnea, syncope, headache, dizziness, GI bleed, back pain, seizure, CVA, palpatations, mental health, musculoskeletal)? @ -Differential Weakness: Hypoglycemia, shock, sepsis, hyponatremia, anemia, infection, CA, ETOH, adverse medicine reaction, overdose, stroke, this is not meant to be an all-inclusive list. EKG interpreted by me (3pts min.). @ -As above X-rays interpreted by me (1pt min.). @ -Chest x-ray reveals no obvious acute cardiopulmonary process. CT interpreted by me (1pt min.). @ -None done U/S interpreted by me (1pt. min.). @ -None done What testing was considered but not performed or refused? (CT, X-rays, U/S, labs)? Why? @ -None What meds were considered but not given or refused? Why? @ -None Did you discuss the management of the patient with other professionals (professionals i.e. , RAE, FRAME EXPANDER, lab, RT, psych nurse, social worker assistant, paper carrier, teacher, correctional officer chief, case packer and sealer)? Give summary @ -I spoke with Dr. gross accepting physician who admits for Dr. Ng accepted the patient. He was in agreement with the plan. Was smoking cessation discussed for >3mins.? @ -No Was critical care preformed (if so, how long)? @ -No Were there social determinants of health that impacted care today? How? (Ho melessness, low income, unemployed, alcoholism, drug addiction, transportation, low edu. Level, literacy, decrease access to med. care, senior living, rehab)? @ -No Was there de-escalation of care discussed even if they declined (Discuss DNR or withdrawal of care, Hospice)? DNR status @ -No What co-morbidities impacted this encounter? (DM, HTN, Smoking, COPD, CAD, Cancer, CVA, ARF, Chemo, Hep., AIDS, mental health diagnosis, sleep apnea, morbid obesity)? @ -Recent cardiac arrest with LAD stenting and scheduled stenting next Sunday. Was patient admitted / discharged? Hospital course, mention meds given and route, prescriptions, significant lab abnormalities, going to OR and other pert inent info. @ -Based on the patient's presentation and physical exam, presents as a transfer for cardiac observation over concern for generalized weakness status post LAD stenting last week. He is due to receive additional stenting next Sunday. Has no other acute complaints at this time other than generalized weakness. Workup at the outside facility was remarkable for an elevated troponin of 0.7 which was attributed to the recent cardiac catheterization. No EKG changes. No chest pain. We'll repeat laboratory studies here in the emergency department and obtain a chest x-ray as well as viral swabs as the patient's only other complaint is mild nonproductive cough. He was in agreement this plan. He will be admitted to the hospital. Vital signs are within acceptable limits at this time. CT imaging was obtained of the brain at the outside facility which revealed no evidence of acute intracranial process. They did note progression of a known old stroke. Repeat EKG here reveals no obvious acute ST segment or T-wave abnormalities to suggest acute ischemia. No other obvious changes. Chest x-ray showed no evidence of acute cardiopulmonary process. Patient's labs are remarkable for a hemoglobin of 11.9 which is somewhat chronic for the patient. Troponin is elevated to 0.3, however this is decreased from troponin at outside facility last night which was 0.7. Covid 19 test is positive. I did the patient. Plan remains the same to admit him for cardiology evaluation and monitoring for his generalized weakness. He has no acute complaints at this time and was in agreement this plan. We will resume home medications. I spoke with the admitting physician, Dr. gross who accepted the patient. Cardiology consulted. Undiagnosed new problem with uncertain prognosis? @ -No Drug Therapy requiring intensive monitoring for toxicity (Heparin, Nitro, Insulin, Cardizem)? @ -No Were any procedures done? @ -No Diagnosis/symptom? @ -Weakness, Covid 19 infection, elevated troponin status post cardiac st enting, history of CAD Acute, or Chronic, or Acute on Chronic? @ -Acute Uncomplicated (without systemic symptoms) or Complicated (systemic symptoms)? @ -Complicated Side effects of treatment? @ -none Exacerbation, Progression, or Severe Exacerbation] @ -no Poses a threat to life or bodily function? @ -Yes - Lab Data Result diagrams: 11/02/22 08:22 11/02/22 08:22 Lab Results 11/02/22 11/02/22 11/02/22 Range/Units 08:22 08:22 08:22 WBC 5.1 (3.8-10.6) k/uL RBC 3.80 L (4.30-5.90) m/uL Hgb 11.9 L (13.0-17.5) gm/dL Hct 34.6 L (39.0-53.0) % MCV 91.0 (80.0-100.0) fL MCH 31.2 (25.0-35.0) pg MCHC 34.3 (31.0-37.0) g/dL RDW 13.2 (11.5-15.5) % Plt Count 186 (150-450) k/uL MPV 7.4 Neutrophils % 84 % Lymphocytes % 6 % Monocytes % 7 % Eosinophils % 1 % Basophils % 0 % Neutrophils # 4.3 (1.3-7.7) k/uL Lymphocytes # 0.3 L (1.0-4.8) k/uL Monocytes # 0.4 (0-1.0) k/uL Eosinophils # 0.1 (0-0.7) k/uL Basophils # 0.0 (0-0.2) k/uL PT 10.8 (9.0-12.0) sec INR 1.0 (<1.2) APTT 24.4 (22.0-30.0) sec Sodium 138 (137-145) mmol/L Potassium 3.7 (3.5-5.1) mmol/L Chloride 105 (98-107) mmol/L Carbon Dioxide 24 (22-30) mmol/L Anion Gap 9 mmol/L BUN 21 H (9-20) mg/dL Creatinine 1.16 (0.66-1.25) mg/dL Est GFR (CKD-EPI)AfAm 68 (>60 ml/min/1.73 sqM) Est GFR (CKD-EPI)NonAf 59 (>60 ml/min/1.73 sqM) Glucose 131 H (74-99) mg/dL Calcium 8.4 (8.4-10.2) mg/dL Magnesium 1.7 (1.6-2.3) mg/dL Total Bilirubin 0.6 (0.2-1.3) mg/dL AST 21 (17-59) U/L ALT 19 (4-49) U/L Alkaline Phosphatase 67 (38-126) U/L Troponin I (0.000-0.034) ng/mL NT-Pro-B Natriuret Pep pg/mL Total Protein 6.2 L (6.3-8.2) g/dL Albumin 3.6 (3.5-5.0) g/dL Influenza Type A (PCR) (Not Detectd) Influenza Type B (PCR) (Not Detectd) RSV (PCR) (Not Detectd) SARS-CoV-2 (PCR) (Not Detectd) 11/02/22 11/02/22 11/02/22 Range/Units 08:22 08:22 08:22 WBC (3.8-10.6) k/uL RBC (4.30-5.90) m/uL Hgb (13.0-17.5) gm/dL Hct (39.0-53.0) % MCV (80.0-100.0) fL MCH (25.0-35.0) pg MCHC (31.0-37.0) g/dL RDW (11.5-15.5) % Plt Count (150-450) k/uL MPV Neutrophils % % Lymphocytes % % Monocytes % % Eosinophils % % Basophils % % Neutrophils # (1.3-7.7) k/uL Lymphocytes # (1.0-4.8) k/uL Monocytes # (0-1.0) k/uL Eosinophils # (0-0.7) k/uL Basophils # (0-0.2) k/uL PT (9.0-12.0) sec INR (<1.2) APTT (22.0-30.0) sec Sodium (137-145) mmol/L Potassium (3.5-5.1) mmol/L Chloride (98-107) mmol/L Carbon Dioxide (22-30) mmol/L Anion Gap mmol/L BUN (9-20) mg/dL Creatinine (0.66-1.25) mg/dL Est GFR (CKD-EPI)AfAm (>60 ml/min/1.73 sqM) Est GFR (CKD-EPI)NonAf (>60 ml/min/1.73 sqM) Glucose (74-99) mg/dL Calcium (8.4-10.2) mg/dL Magnesium (1.6-2.3) mg/dL Total Bilirubin (0.2-1.3) mg/dL AST (17-59) U/L ALT (4-49) U/L Alkaline Phosphatase (38-126) U/L Troponin I 0.327 H* (0.000-0.034) ng/mL NT-Pro-B Natriuret Pep 863 pg/mL Total Protein (6.3-8.2) g/dL Albumin (3.5-5.0) g/dL Influenza Type A (PCR) Not Detected (Not Detectd) Influenza Type B (PCR) Not Detected (Not Detectd) RSV (PCR) Not Detected (Not Detectd) SARS-CoV-2 (PCR) Detected A (Not Detectd) - EKG Data -: EKG Interpreted by Me EKG Comments: 12-lead Electrocardiogram Interpretation Note EKG was reviewed and interpreted by myself. 12-lead ECG performed at 0818 is interpreted by me as revealing normal sinus rhythm at a rate of 78 beats per minute. Brohman is normal. RI interval is 160 ms, QRS duration is 92 ms, QTc is 407 ms.. There are nonspecific ST segment and T-wave abnormalities that are u nchanged from EKG from [facility] primarily in the leads III and aVF. These are somewhat redemonstrated from EKGs in 10/29/2022 10/27/2022 from his prior admission. No obvious acute ST segment or T-wave abnormalities appreciated to suggest acute ischemia.. R wave progression across the precordium was satisfactory. By my interpretation this EKG is non-diagnostic for acute ischemia. Disposition Clinical Impression: COVID-19 virus infection, Weakness, Elevated troponin Disposition: ADMITTED IP TO THIS HOSP Condition: Stable Referrals: Gopal Ng MD [Primary Care Provider] - 1-2 days Time of Disposition: 09:24
[2022-11-02 08:48] LABS: Albumin 3.6 g/dL (3.5-5.0); Calcium 8.4 mg/dL (8.4-10.2); Magnesium 1.7 mg/dL (1.6-2.3); Potassium 3.7 mmol/L (3.5-5.1); Total Bilirubin 0.6 mg/dL (0.2-1.3); Total Protein 6.2 g/dL (6.3-8.2)
[2022-11-02] MEDS ORDERED: ASPIRIN 81 MG PO STA (08:55)
[2022-11-02] MEDS ORDERED: NALOXONE 0.4 MG/ML 1 ML VIAL IV PRN (09:39)
[2022-11-02] MEDS ORDERED: SODIUM CHLORIDE 0.9% 1,000 ML IV STA (09:40)
[2022-11-02] MEDS: LOSARTAN 50 MG TAB PO SCH (10:17)
[2022-11-02] MEDS: APIXABAN 2.5 MG TABLET PO SCH ×2 (10:17→21:30)
[2022-11-02] MEDS: CLOPIDOGREL 75 MG TAB PO SCH (10:17)
[2022-11-02] MEDS: hydroCHLOROthiazide 12.5 MG CAP PO SCH (10:23)
[2022-11-02] MEDS ORDERED: DEXTROSE 50% SYRINGE 50 ML IVP PRN ×2 (10:46)
--- NOTE | 2022-11-02 10:48 | P.HPIM ---
History of Present Illness This is a pleasant 82 years old male with past medical history of Diabetes Mellitus, GERD/Reflux, Hypertension, Osteoarthritis BRADYCARDIA, neuropathy, stroke, He was recently in this hospital for syncope with pulselessness requiring a brief CPR with suspected acute/subacute left occipital stroke (right arm weakness, dizziness and gait imbalance) He underwent cardiac cath and had PCI of left circumflex and the right coronary artery He was discharged on liquids and Plavix. He presents because of generalized weakness and syncope. Patient says that he feels very weak this morning that he has difficulty getting up from bed and at the same time from getting up from the toilet seat that he has delayed for a few minutes, and on his way back to the bed this morning he passed out for a few seconds with no confusion, he woke up in a few seconds. He denies chest pain or dyspnea. No headache dizziness. He still complaining of f rom same weakness in the right upper extremity with no worsening. Other new weakness. No blurred vision or slurred speech or difficulty swallowing or talking. No GI or urinary symptoms. Patient says that his been taking his Plavix and a liquids as he is supposed to. Smoking alcohol or illicit drugs Vitals stable and patient is afebrile, And he is saturating 96% on room air. His hemoglobin is 11.9. INR is 1.0. BMP is unremarkable. Troponin 0.3 t EKG showing normal sinus rhythm at [address] T changes Chest x-ray: No acute process. I reviewed chest x-ray by myself Review of Systems Review of systems CONSTITUTIONAL: No fever, no malaise, no fatigue. HEENT: No recent visual problems or hearing problems. Denied any sore throat. CARDIOVASCULAR: No orthopnea, PND, no palpitations, no syncope. PULMONARY: No shortness of breath, no cough, no hemoptysis. GASTROINTESTINAL: No diarrhea, no nausea, no vomiting, no abdominal pain. Normoactive bowel sounds. NEUROLOGICAL: No headaches, no weakness, no numbness. HEMATOLOGICAL: Denies any bleeding or petechiae. GENITOURINARY: Denies any burning micturition, frequency, or urgency. MUSCULOSKELETAL/RHEUMATOLOGICAL: Denies any joint pain, swelling, or any muscle pain. ENDOCRINE: Denies any polyuria or polydipsia. Past Medical History Past Medical History: Diabetes Mellitus, GERD/Reflux, Hypertension, Osteoarthritis (OA) Additional Past Medical History / Comment(s): BRADYCARDIA, neuropathy, stroke, History of Any Multi-Drug Resistant Organisms: None Reported Past Surgical History: Appendectomy, Hernia Repair, Orthopedic Surgery, Prostate Surgery Additional Past Surgical History / Comment(s): colonsocopy, maye knee arthroscopy, EGD with diliation, inguinal hernia repair.,. 02/14/19 Manuel fundoplasty. 02/20/19 Exploratory lap r/t perforated bowel. TURP. INCISIONAL HERNIA 02/2022 Past Anesthesia/Blood Transfusion Reactions: No Reported Reaction Additional Past Anesthesia/Blood Transfusion Reaction / Comment(s): no hx blood transfusion Past Psychological History: No Psychological Hx Reported Smoking Status: Never smoker Past Alcohol Use History: Unable to Obtain Past Drug Use History: Unable to Obtain - Past Family History Mother Family Medical History: No Reported History Father Family Medical History: Myocardial Infarction ([place]) Medications and Allergies Home Medications Medication Instructions Recorded Confirmed Type Atorvastatin [Lipitor] 20 mg PO HS 10/22/22 11/02/22 History Ergocalciferol (Vitamin D2) 1,250 mcg PO WE 10/22/22 11/02/22 History [Drisdol (50,000 Iu)] Gabapentin 600 mg PO BID 10/22/22 11/02/22 History hydroCHLOROthiazide 12.5 mg PO DAILY 10/22/22 11/02/22 History Apixaban [Eliquis] 2.5 mg PO BID #180 tab 10/27/22 11/02/22 Rx Clopidogrel [Plavix] 75 mg PO DAILY #90 tab 10/27/22 11/02/22 Rx Losartan [Cozaar] 100 mg PO DAILY #180 tab 10/27/22 11/02/22 Rx metFORMIN HCL 500 mg PO BID #0 10/27/22 11/02/22 Rx Allergies Allergy/AdvReac Type Severity Reaction Status Date / Time No Known Allergies Allergy Verified 11/02/22 08:31 Physical Exam Vitals: Vital Signs Temp Pulse Resp BP Pulse Ox 11/02/22 09:17 70 128/59 96 11/02/22 08:30 70 17 122/63 94 L 11/02/22 08:06 76 18 122/63 94 L 11/02/22 08:04 98.5 F 77 18 122/63 93 L Intake and Output 11/01/22 11/02/22 11/02/22 22:59 06:59 14:59 Other: Weight 72.575 kg GENERAL: The patient is alert and oriented x3, not in any acute distress. Well developed, well nourished. HEENT: Pupils are round and equally reacting to light. EOMI. No scleral icterus. No conjunctival pallor. Normocephalic, atraumatic. No pharyngeal erythema. No thyromegaly. CARDIOVASCULAR: S1 and S2 present. No murmurs, rubs, or gallops. PULMONARY: Chest is clear to auscultation, no wheezing or crackles. ABDOMEN: Soft, nontender, nondistended, normoactive bowel sounds. No palpable organomegaly. MUSCULOSKELETAL: No joint swelling or deformity. EXTREMITIES: No cyanosis, clubbing, or pedal edema. NEUROLOGICAL: Gross neurological examination did not reveal any focal deficits. SKIN: No rashes. no petechiae. Results CBC & Chem 7: 11/02/22 08:22 11/02/22 08:22 Labs: Abnormal Lab Results - Last 24 Hours (Table) 11/02/22 11/02/22 11/02/22 Range/Units 08:22 08:22 08:22 RBC 3.80 L (4.30-5.90) m/uL Hgb 11.9 L (13.0-17.5) gm/dL Hct 34.6 L (39.0-53.0) % Lymphocytes # 0.3 L (1.0-4.8) k/uL BUN 21 H (9-20) mg/dL Glucose 131 H (74-99) mg/dL Troponin I 0.327 H* (0.000-0.034) ng/mL Total Protein 6.2 L (6.3-8.2) g/dL SARS-CoV-2 (PCR) (Not Detectd) 11/02/22 Range/Units 08:22 RBC (4.30-5.90) m/uL Hgb (13.0-17.5) gm/dL Hct (39.0-53.0) % Lymphocytes # (1.0-4.8) k/uL BUN (9-20) mg/dL Glucose (74-99) mg/dL Troponin I (0.000-0.034) ng/mL Total Protein (6.3-8.2) g/dL SARS-CoV-2 (PCR) Detected A (Not Detectd) Assessment and Plan Assessment: Covid infection with no pneumonia or hypoxia Generalized weakness could be secondary to above a new episode of syncope Recent history of Syncopal episode with pulselessness requiring brief CPR. He had cardiac cath and showed coronary artery disease with PCI to left circumflex and RCA Suspected acute/subacute CVA in the left inferior occipital lobe on CT Paroxysmal Atrial fibrillation Hypertension Diabetes mellitus Hyperlipidemia History of bradycardia Plan: Continue with a Eliquis and Plavix Check orthostatic vitals Check TSH Cardiology consult Physical therapy evaluation Check hemoglobin A1c Start vitamin D, vitamin C and zinc for covid infectino . no need for steroid as pt is not hypoxic Labs and medication were reviewed.. Continue same treatment. Continue with symptomatic treatment. Resume home medication. Monitor labs and vitals. DVT and GI prophylaxis. Further recommendations as per clinical course of the patient DVT prophylaxis: On a eliquis GI Prophylaxis: Pepcid PT/OT: Pending Prognosis is guarded
[2022-11-02 11:52] LABS: Glucose,Whole Blood 111 mg/dL (70-110)
[2022-11-02] MEDS: INSULIN ASPART (NovoLOG) 100 UNIT/ML VIAL SQ SCH ×3 (11:55→20:20)
--- NOTE | 2022-11-02 12:04 | P.CRDCN ---
History of Present Illness History of present illness: HISTORY OF PRESENT ILLNESS: This is a 82-year-old male with a past medical history significant for atrial fibrillation, CVA, coronary artery disease, hypertension, hyperlipidemia, and bradycardia. Patient follows in the office with Dr. Mortensen. We have been asked to see the patient in consultation for syncope. Patient examined at the bedside. Patient was recently in the hospital and underwent cardiac catheterization on 10/22/2022 with stenting of the proximal and mid LAD. He was discharged home in stable condition. Patient was scheduled to come back on 11/08/2022 for repeat cardiac catheterization with PCI of the left circumflex and FFR of the RCA. Patient states for the past day he has been feeling weak. He denied any chest pain or shortness of breath. He does report having a cough for the past day as well. He denies having any fever or chills. He states he got this morning at 3 AM to use the bathroom. He states that he was so weak it took him 10 minutes to get out of bed. He states that he walked to the bathroom and use the bathroom and on his way back he was standing next to the bed when he fell to the ground. He reports feeling dizzy the entire time he was walking to the bathroom. He is unsure if he lost consciousness, although he does not think so. He states his was in the room when this happened but states that she is unsure if he lost consciousness or not. The patient was found to be positive for Covid 19 and he was admitted to the hospital for further evaluation. * EKG reveals sinus mechanism with T-wave inversion inferiorly, unchanged from previous EKG * Chest xray for ventilatory changes in addition to some chronic changes. No definite acute process. * Laboratory data: W BC 5.1. Hemoglobin 11.9. Platelet count 186. Sodium 138. Potassium 3.7. BUN 21. Creatinine 1.16. Troponin 0.327. ProBNP 163. * Current home cardiac medications include hydrocodone thiazide 12.5 mg daily, losartan 100 mg daily, Plavix 75 mg daily, Lipitor 20 mg at night, and Eliquis 2.5mg BID * Most recent echocardiogram obtained on 10/23/2022 revealing ejection fraction 50-55%, mild pulmonary hypertension, moderate aortic regurgitation, mild mitral regurgitation, mild tricuspid regurgitation REVIEW OF SYSTEMS: At the time of my exam: CONSTITUTIONAL: Denies fever or chills. HEENT: Denies blurred vision, vision changes, or eye pain. Denies hemoptysis CARDIOVASCULAR: Denies chest pain. Denies orthopnea. Denies PND. Denies palpitations RESPIRATORY: Denies shortness of breath. GASTROINTESTINAL: Denies abdominal pain. Denies nausea or vomiting. HEMATOLOGIC: Denies bleeding disorders. GENITOURINARY: Denies any blood in urine. SKIN: Denies pruitis. Denies rash. PHYSICAL EXAM: VITAL SIGNS: Reviewed. GENERAL: Well-developed in no acute distress. HEENT: Head is normocephalic. Pupils are equal, round. Sclerae anicteric. Mucous membranes of the mouth are moist. Neck supple. No JVD or thyromegaly LUNGS: Respirations even and unlabored. Lungs essentially clear to auscultation bilaterally. HEART: Regular rate and rhythm. S1 and S2 heard. ABDOMEN: Soft. Nondistended. Nontender. EXTREMITIES: Normal range of motion. No clubbing or cyanosis. Peripheral pulses intact. No lower extremity edema NEUROLOGIC: Awake and alert. Oriented x 3. ASSESSMENT: Generalized weakness Status post fall, unsure if syncopal episode or not Covid 19 Coronary artery disease with previous stenting of the proximal and mid LAD, scheduled for outpatient stenting of the left circumflex and FFR of the RCA Elevated troponin, may be secondary to recent stenting and/or covid infection, no signs of ACS Paroxysmal atrial fibrillation, currently maintaining sinus mechanism History of CVA in the left inferior occipital lobe History of bradycardia, not on AV britta blocking agents Hypertension PLAN: No need to repeat echocardiogram as this was performed last month Resume home cardiac medications Trend troponins Further recommendations pending patient course Nurse practitioner note has been reviewed by physician. Signing provider agrees with the documented findings, assessment, and plan of care. Past Medical History Past Medical History: Diabetes Mellitus, GERD/Reflux, Hypertension, Osteoarthritis (OA) Additional Past Medical History / Comment(s): BRADYCARDIA, neuropathy, stroke, History of Any Multi-Drug Resistant Organisms: None Reported Past Surgical History: Appendectomy, Hernia Repair, Orthopedic Surgery, Prostate Surgery Additional Past Surgical History / Comment(s): colonsocopy, maye knee arthroscopy, EGD with diliation, inguinal hernia repair.,. 02/14/19 Manuel fundoplasty. 02/20/19 Exploratory lap r/t perforated bowel. TURP. INCISIONAL HERNIA 02/2022 Past Anesthesia/Blood Transfusion Reactions: No Reported Reaction Additional Past Anesthesia/Blood Transfusion Reaction / Comment(s): no hx blood transfusion Past Psychological History: No Psychological Hx Reported Smoking Status: Never smoker Past Alcohol Use History: Unable to Obtain Past Drug Use History: Unable to Obtain - Past Family History Mother Family Medical History: No Reported History Father Family Medical History: Myocardial Infarction ([place]) Medications and Allergies Home Medications Medication Instructions Recorded Confirmed Type Atorvastatin [Lipitor] 20 mg PO HS 10/22/22 11/02/22 History Ergocalciferol (Vitamin D2) 1,250 mcg PO WE 10/22/22 11/02/22 History [Drisdol (50,000 Iu)] Gabapentin 600 mg PO BID 10/22/22 11/02/22 History hydroCHLOROthiazide 12.5 mg PO DAILY 10/22/22 11/02/22 History Apixaban [Eliquis] 2.5 mg PO BID #180 tab 10/27/22 11/02/22 Rx Clopidogrel [Plavix] 75 mg PO DAILY #90 tab 10/27/22 11/02/22 Rx Losartan [Cozaar] 100 mg PO DAILY #180 tab 10/27/22 11/02/22 Rx metFORMIN HCL 500 mg PO BID #0 10/27/22 11/02/22 Rx Allergies Allergy/AdvReac Type Severity Reaction Status Date / Time No Known Allergies Allergy Verified 11/02/22 08:31 Physical Exam Vitals: Vital Signs Temp Pulse Resp BP Pulse Ox 11/02/22 10:30 68 20 107/57 96 11/02/22 10:00 69 20 117/58 96 11/02/22 09:30 66 22 128/59 94 L 11/02/22 09:17 70 128/59 96 11/02/22 09:00 71 20 112/55 95 11/02/22 08:30 70 17 122/63 94 L 11/02/22 08:06 76 18 122/63 94 L 11/02/22 08:04 98.5 F 77 18 122/63 93 L Intake and Output 11/01/22 11/02/22 11/02/22 22:59 06:59 14:59 Other: Weight 72.575 kg Results 11/02/22 08:22 11/02/22 08:22 Cardiac Enzymes 11/02/22 11/02/22 Range/Units 08:22 08:22 AST 21 (17-59) U/L Troponin I 0.327 H* (0.000-0.034) ng/mL Coagulation 11/02/22 Range/Units 08:22 PT 10.8 (9.0-12.0) sec APTT 24.4 (22.0-30.0) sec CBC 11/02/22 Range/Units 08:22 WBC 5.1 (3.8-10.6) k/uL RBC 3.80 L (4.30-5.90) m/uL Hgb 11.9 L (13.0-17.5) gm/dL Hct 34.6 L (39.0-53.0) % Plt Count 186 (150-450) k/uL Comprehensive Metabolic Panel 11/02/22 Range/Units 08:22 Sodium 138 (137-145) mmol/L Potassium 3.7 (3.5-5.1) mmol/L Chloride 105 (98-107) mmol/L Carbon Dioxide 24 (22-30) mmol/L BUN 21 H (9-20) mg/dL Creatinine 1.16 (0.66-1.25) mg/dL Glucose 131 H (74-99) mg/dL Calcium 8.4 (8.4-10.2) mg/dL AST 21 (17-59) U/L ALT 19 (4-49) U/L Alkaline Phosphatase 67 (38-126) U/L Total Protein 6.2 L (6.3-8.2) g/dL Albumin 3.6 (3.5-5.0) g/dL Current Medications Generic Name Dose Route Start Last Admin Trade Name Freq PRN Reason Stop Dose Admin Apixaban 2.5 mg 11/02/22 09:45 11/02/22 10:17 Apixaban 2.5 Mg Tablet PO 2.5 mg BID [facility] Administration Protocol Ascorbic Acid 1,000 mg 11/02/22 11:00 Ascorbic Acid 500 Mg Tab PO DAILY [facility] Atorvastatin Calcium 20 mg 11/02/22 21:00 Atorvastatin 20 Mg Tab PO HS [facility] Cholecalciferol 50 mcg 11/02/22 11:00 Cholecalciferol 25 Mcg (1000 Iu) Tablet PO DAILY [facility] Clopidogrel Bisulfate 75 mg 11/02/22 09:45 11/02/22 10:17 Clopidogrel 75 Mg Tab PO 75 mg DAILY RAJ Administration Dextrose/Water 25 ml 11/02/22 10:46 Dextrose 50% Syringe 50 Ml IVP PER PROTOCOL PRN Hypoglycemia Protocol Dextrose/Water 50 ml 11/02/22 10:46 Dextrose 50% Syringe 50 Ml IVP PER PROTOCOL PRN Hypoglycemia Protocol Gabapentin 600 mg 11/02/22 21:00 Gabapentin 300 Mg Cap PO BID RAJ Hydrochlorothiazide 12.5 mg 11/02/22 09:45 11/02/22 10:23 Hydrochlorothiazide 12.5 Mg Cap PO 12.5 mg DAILY RAJ Administration Sodium Chloride 1,000 mls @ 75 mls/hr 11/02/22 09:40 11/02/22 10:16 Saline 0.9% IV 11/02/22 22:59 75 mls/hr .[id number] STA Administration Insulin Aspart 0 unit 11/02/22 12:30 Insulin Aspart (Novolog) 100 Unit/Ml Vial SQ ACHS RAJ Protocol Losartan Potassium 100 mg 11/02/22 09:45 11/02/22 10:17 Losartan 50 Mg Tab PO 100 mg DAILY RAJ Administration Naloxone HCl 0.2 mg 11/02/22 09:39 Naloxone 0.4 Mg/Ml 1 Ml Vial IV Q2M PRN Opioid Reversal Zinc Sulfate 220 mg 11/02/22 11:00 Zinc Sulfate 220 Mg Cap PO DAILY RAJ Intake and Output 11/01/22 11/02/22 11/02/22 22:59 06:59 14:59 Other: Weight 72.575 kg Patient Weight 11/03/22 06:59 Weight 72.575 kg 11/02/22 08:22 11/02/22 08:22
[2022-11-02] MEDS: CHOLECALCIFEROL 25 MCG (1000 IU) TABLET PO SCH (12:55)
[2022-11-02] MEDS: ZINC SULFATE 220 MG CAP PO SCH (12:55)
[2022-11-02] MEDS: ASCORBIC ACID 500 MG TAB PO SCH (12:55)
[2022-11-02 16:35] LABS: Glucose,Whole Blood 127 mg/dL (70-110)
[2022-11-02 20:11] LABS: Glucose,Whole Blood 135 mg/dL (70-110)
[2022-11-02] MEDS ORDERED: ATORVASTATIN 20 MG TAB PO SCH (21:00)
[2022-11-02] MEDS ORDERED: ATORVASTATIN 40 MG TAB PO SCH (21:00)
[2022-11-02] MEDS: GABAPENTIN 300 MG CAP PO SCH (21:30)
[2022-11-02 22:55] LABS: C Reactive Protein 3.1 mg/dL (<1.0)
[2022-11-03 06:02] LABS: Glucose,Whole Blood 121 mg/dL (70-110)
[2022-11-03 06:06] LABS: Appearance,Urine Clear (Clear); Bilirubin,Urine Negative (Negative); Blood,Urine Negative (Negative); Color,Urine Light Yellow; Glucose,Urine (UA) Negative (Negative); Ketones,Urine Negative (Negative); Leukocyte Esterase,Urine Negative (Negative); Nitrite,Urine Negative (Negative); PH, Urine 5.5 (5.0-8.0); Protein,Urine Negative (Negative); Specific Gravity,Urine 1.011 (1.001-1.035); Urobilinogen,Urine <2.0 mg/dL (<2.0)
[2022-11-03] MEDS: INSULIN ASPART (NovoLOG) 100 UNIT/ML VIAL SQ SCH ×2 (06:06→12:07)
[2022-11-03] MEDS: ASCORBIC ACID 500 MG TAB PO SCH (08:27)
[2022-11-03] MEDS: CLOPIDOGREL 75 MG TAB PO SCH (08:28)
[2022-11-03] MEDS: ZINC SULFATE 220 MG CAP PO SCH (08:28)
[2022-11-03] MEDS: APIXABAN 2.5 MG TABLET PO SCH (08:28)
[2022-11-03] MEDS: CHOLECALCIFEROL 25 MCG (1000 IU) TABLET PO SCH (08:28)
[2022-11-03] MEDS: GABAPENTIN 300 MG CAP PO SCH (08:28)
--- NOTE | 2022-11-03 10:55 | P.PN ---
Subjective HISTORY OF PRESENT ILLNESS: This is a 82-year-old male with a past medical history significant for atrial fibrillation, CVA, coronary artery disease, hypertension, hyperlipidemia, and bradycardia. Patient follows in the office with Dr. Mortensen. We have been asked to see the patient in consultation for syncope. Patient examined at the bedside. Patient was recently in the hospital and underwent cardiac catheterization on with stenting of the proximal and mid LAD. He was discharged home in stable condition. Patient was scheduled to come back on 11/08/2022 for repeat cardiac catheterization with PCI of the left circumflex and FFR of the RCA. Patient states for the past day he has been feeling weak. He denied any chest pain or shortness of breath. He does report having a cough for the past day as well. He denies having any fever or chills. He states he got this morning at 3 AM to use the bathroom. He states that he was so weak it took him 10 minutes to get out of bed. He states that he walked to the bathroom and use the bathroom and on his way back he was standing next to the bed when he fell to the ground. He reports feeling dizzy the entire time he was walking to the bathroom. He is unsure if he lost consciousness, although he does not think so. He states his was in the room when this happened but states that she is unsure if he lost consciousness or not. The patient was found to be positive for Covid 19 and he was admitted to the hospital for further evaluation. * EKG reveals sinus mechanism with T-wave inversion inferiorly, unchanged from previous EKG * Chest xray for ventilatory changes in addition to some chronic changes. No definite acute process. * Laboratory data: W BC 5.1. Hemoglobin 11.9. Platelet count 186. Sodium 138. Potassium 3.7. BUN 21. Creatinine 1.16. Troponin 0.327. ProBNP 163. * Current home cardiac medications include hydrocodone thiazide 12.5 mg daily, losartan 100 mg daily, Plavix 75 mg daily, Lipitor 20 mg at night, and Eliquis 2.5mg BID * Most recent echocardiogram obtained on 10/23/2022 revealing ejection fraction 50-55%, mild pulmonary hypertension, moderate aortic regurgitation, mild mitral regurgitation, mild tricuspid regurgitation 11/03/2022 Patient examined this morning at the bedside. Patient denies chest pain or pressure. He denies shortness of breath. He is anxious to be discharged home today. PHYSICAL EXAM: VITAL SIGNS: Reviewed. GENERAL: Well-developed in no acute distress. HEENT: Head is normocephalic. Pupils are equal, round. Sclerae anicteric. Mucous membranes of the mouth are moist. Neck supple. No JVD or thyromegaly LUNGS: Respirations even and unlabored. Lungs essentially clear to auscultation bilaterally. HEART: Regular rate and rhythm. S1 and S2 heard. ABDOMEN: Soft. Nondistended. Nontender. EXTREMITIES: Normal range of motion. No clubbing or cyanosis. Peripheral pulses intact. No lower extremity edema NEUROLOGIC: Awake and alert. Oriented x 3. ASSESSMENT: Generalized weakness Status post fall, unsure if syncopal episode or not Covid 19 Coronary artery disease with previous stenting of the proximal and mid LAD, scheduled for outpatient stenting of the left circumflex and FFR of the RCA Elevated troponin, may be secondary to recent stenting and/or covid infection, no signs of ACS Paroxysmal atrial fibrillation, currently maintaining sinus mechanism History of CVA in the left inferior occipital lobe History of bradycardia, not on AV britta blocking agents Hypertension PLAN: Continue current cardiac medications Patient encouraged to wear compression stockings and change positions slowly He may be discharged home today from a cardiac standpoint Nurse practitioner note has been reviewed by physician. Signing provider agrees with the documented findings, assessment, and plan of care. Objective - Vital Signs Vital signs: Vital Signs Temp 99.9 F H 11/03/22 08:20 Pulse 81 11/03/22 08:20 Resp 16 11/03/22 08:20 BP 144/68 11/03/22 08:20 Pulse Ox 98 11/03/22 08:20 FiO2 Intake & Output 11/02/22 11/03/22 11/03/22 18:59 06:59 18:59 Intake Total 525 658 Balance 525 658 Weight 72.575 kg 69.9 kg Intake: IV 525 Sodium Chloride 0.9% 1, 525 000 ml @ 75 mls/hr IV . [id number] STA Rx#:[id number] Oral 658 Other: Voiding Method Toilet Toilet Toilet # Voids 1 - Labs CBC & Chem 7: 11/02/22 08:22 11/02/22 08:22 Labs: Abnormal Lab Results - Last 24 Hours (Table) 11/02/22 11/02/22 11/02/22 Range/Units 08:22 11:50 11:56 POC Glucose (mg/dL) 111 H (70-110) mg/dL Troponin I 0.324 H* (0.000-0.034) ng/mL C-Reactive Protein 3.1 H (<1.0) mg/dL 11/02/22 11/02/22 11/02/22 Range/Units 15:32 16:33 20:08 POC Glucose (mg/dL) 127 H 135 H (70-110) mg/dL Troponin I 0.274 H* (0.000-0.034) ng/mL C-Reactive Protein (<1.0) mg/dL 11/03/22 Range/Units 06:00 POC Glucose (mg/dL) 121 H (70-110) mg/dL Troponin I (0.000-0.034) ng/mL C-Reactive Protein (<1.0) mg/dL
[2022-11-03 11:57] LABS: Glucose,Whole Blood 117 mg/dL (70-110)
[2022-11-03] MEDS: LOSARTAN 50 MG TAB PO SCH (12:44)
[2022-11-03] MEDS: hydroCHLOROthiazide 12.5 MG CAP PO SCH (12:44)
[2022-11-03 12:50] VITALS: BP 160/75; PULSE 66; RESP 18; TEMP 98.8
--- NOTE | 2022-11-03 22:33 | P.CONS ---
History of Present Illness - Reason for Consult Consult date: 11/03/22 Fever Requesting physician: Myles Dobbs - Chief Complaint weakness x 1 day - History of Present Illness Patient is a 82-year-old male with a past medical history significant for diabetes mellitus hypertension reflux osteoarthritis history of coronary artery disease and apparently recently did have a cardiac cath and intervention to the left circumflex and right coronary artery patient was brought to [facility] ER yesterday morning as a transfer from [facility] where the patient presented with generalized weakness patient was noticed to have a troponin of 0.7 patient was subsequently transferred to [facility] for further evaluation on presentation to this hospital patient was afebrile however he did spike a low-grade 100.2 last night and a low-grade fever of 99.9 this morning patient also tested positive for COVID that has progressed infectious disease consultation patient currently denies having any headache or URI symptoms patient denies having any chest pain or shortness of breath he did have very minimal mild cough no sputum production denies any nausea no vomiting no abdominal pain and no diarrhea patient remains to be afebrile patient is not hypoxic or need for supplemental oxygen currently 98% on room air patient did have a chest x-ray hypoventilatory changes no definite acute process infectious disease was consulted for the positive COVID test and need for further treatment, patient mention has been vaccinated for COVID however was not able to give further detail Review of Systems Positive point has been mentioned in HPI rest of the systems are negative Past Medical History Past Medical History: Diabetes Mellitus, GERD/Reflux, Hypertension, Osteoarthritis (OA) Additional Past Medical History / Comment(s): BRADYCARDIA, neuropathy, stroke, History of Any Multi-Drug Resistant Organisms: None Reported Past Surgical History: Appendectomy, Hernia Repair, Orthopedic Surgery, Prostate Surgery Additional Past Surgical History / Comment(s): colonsocopy, maye knee arthroscopy, EGD with diliation, inguinal hernia repair.,. 02/14/19 Manuel f undoplasty. 02/20/19 Exploratory lap r/t perforated bowel. TURP. INCISIONAL HERNIA 02/2022 Past Anesthesia/Blood Transfusion Reactions: No Reported Reaction Additional Past Anesthesia/Blood Transfusion Reaction / Comm: no hx blood transfusion Date of Last Stent Placement:: 10/2022 Past Psychological History: No Psychological Hx Reported Smoking Status: Never smoker Past Alcohol Use History: Unable to Obtain Past Drug Use History: Unable to Obtain - Past Family History Mother Family Medical History: No Reported History Father Family Medical History: Myocardial Infarction ([place]) Medications and Allergies Home Medications Medication Instructions Recorded Confirmed Type Gabapentin 600 mg PO BID 10/22/22 11/02/22 History hydroCHLOROthiazide 12.5 mg PO DAILY 10/22/22 11/02/22 History Apixaban [Eliquis] 2.5 mg PO BID #180 tab 10/27/22 11/02/22 Rx Clopidogrel [Plavix] 75 mg PO DAILY #90 tab 10/27/22 11/02/22 Rx Losartan [Cozaar] 100 mg PO DAILY #180 tab 10/27/22 11/02/22 Rx metFORMIN HCL 500 mg PO BID #0 10/27/22 11/02/22 Rx Ascorbic Acid [Vitamin C] 1,000 mg PO DAILY #60 tab 11/03/22 Rx Atorvastatin [Lipitor] 40 mg PO HS #30 tab 11/03/22 Rx Cholecalciferol [Vitamin D3 (25 50 mcg PO DAILY #30 tab 11/03/22 Rx Mcg = 1000 Iu)] Metoprolol Tartrate [Lopressor] 50 mg PO BID 11/03/22 11/03/22 History Zinc Sulfate [Orazinc] 220 mg PO DAILY #30 cap 11/03/22 Rx Allergies Allergy/AdvReac Type Severity Reaction Status Date / Time No Known Allergies Allergy Verified 11/02/22 08:31 Physical Exam Vitals: Vital Signs Temp Pulse Pulse Pulse Pulse Resp BP 11/03/22 08:20 99.9 F H 93 96 81 16 115/64 11/03/22 04:00 99.4 F 72 16 120/58 11/03/22 00:00 98.5 F 72 15 124/68 11/02/22 22:00 144/67 11/02/22 20:00 100.2 F H 67 16 11/02/22 16:07 61 11/02/22 15:50 98.3 F 61 16 BP BP BP Pulse Ox 11/03/22 08:20 114/60 144/68 98 11/03/22 04:00 116/64 142/68 94 L 11/03/22 00:00 113/59 129/67 95 11/02/22 22:00 133/63 151/69 11/02/22 20:00 138/65 97 11/02/22 16:07 11/02/22 15:50 144/72 98 Intake and Output 11/02/22 11/03/22 11/03/22 22:59 06:59 14:59 Intake Total 525 658 Balance 525 658 Intake: IV 525 Sodium Chloride 0.9% 1, 525 000 ml @ 75 mls/hr IV . [id number] STA Rx#:[id number] Oral 658 Other: Voiding Method Toilet Toilet Toilet # Voids 1 Weight 69.9 kg GENERAL DESCRIPTION: Elderly male up in bed, no distress. No tachypnea or accessory muscle of respiration use. HEENT: Shows Pallor , no scleral icterus. Oral mucous membrane is dry. NECK: Trachea central, no thyromegaly. LUNGS: Unlabored breathing. Clear to auscultation , No wheeze or crackle. HEART: S1, S2, regular rate and rhythm. ABDOMEN: Soft, no tenderness , guarding or rigidity EXTREMITIES: No edema of feet. SKIN: No rash, no masses palpable. NEUROLOGICAL: The patient is awake, alert, oriented x3, mood and affect normal. Results CBC & Chem 7: 11/02/22 08:22 11/02/22 08:22 Labs: Abnormal Lab Results - Last 24 Hours (Table) 11/02/22 11/02/22 11/02/22 Range/Units 08:22 11:56 15:32 POC Glucose (mg/dL) (70-110) mg/dL Troponin I 0.324 H* 0.274 H* (0.000-0.034) ng/mL C-Reactive Protein 3.1 H (<1.0) mg/dL 11/02/22 11/02/22 11/03/22 Range/Units 16:33 20:08 06:00 POC Glucose (mg/dL) 127 H 135 H 121 H (70-110) mg/dL Troponin I (0.000-0.034) ng/mL C-Reactive Protein (<1.0) mg/dL 11/03/22 Range/Units 11:55 POC Glucose (mg/dL) 117 H (70-110) mg/dL Troponin I (0.000-0.034) ng/mL C-Reactive Protein (<1.0) mg/dL Assessment and Plan (1) COVID-19 virus infection Status: Acute Code(s): U07.1 - COVID-19 SNOMED Code(s): 511681646 Plan: 1patient is in hospital generalized weakness which is likely multifactorial and the patient did tested positive for COVID-19 possibly contributing to some of his symptoms however the patient not behaving as a COVID-pneumonia currently very mild cough lungs were clear to auscultation no evidence of pneumonia on the chest x-ray and the patient not hypoxic or need for supplemental oxygen 2-treatment for COVID will be mostly supportive and there is no need for steroids or remdesivir This was explained to the patient in layman term and all question concern answered We will follow on clinical condition and cultures to further adjust medication if needed Thank you for this consultation we will follow the patient along with you
== END 2022-11-03 15:56 | disposition home or self-care (01) | DRG 178 ==
LOC: EC 07:59 → 3SCARD 09:40
PROVIDERS: ADMIT Internal Medicine; ATTEND Internal Medicine
DX: U07.1 COVID-19 (principal); I69.351 Hemiplegia and hemiparesis following cerebral infarction affecting right dominant side; I10 Essential (primary) hypertension; I48.0 Paroxysmal atrial fibrillation; R79.89 Other specified abnormal findings of blood chemistry; E78.5 Hyperlipidemia, unspecified; R55 Syncope and collapse; W19.XXXA Unspecified fall, initial encounter; R53.1 Weakness; E11.9 Type 2 diabetes mellitus without complications; I08.3 Combined rheumatic disorders of mitral, aortic and tricuspid valves; I27.20 Pulmonary hypertension, unspecified; E11.42 Type 2 diabetes mellitus with diabetic polyneuropathy; K21.9 Gastro-esophageal reflux disease without esophagitis; M19.90 Unspecified osteoarthritis, unspecified site; Z82.49 Family history of ischemic heart disease and other diseases of the circulatory system; Z79.01 Long term (current) use of anticoagulants; Z79.02 Long term (current) use of antithrombotics/antiplatelets; Z79.84 Long term (current) use of oral hypoglycemic drugs; Z79.899 Other long term (current) drug therapy; Z95.5 Presence of coronary angioplasty implant and graft; Z87.19 Personal history of other diseases of the digestive system; Z86.74 Personal history of sudden cardiac arrest
CPT/HCPCS: 36415; 71046; 80053; 81003; 83615; 83735; 83880; 84484; 85025; 85610; 85730; 86140; 87636; 93005; 99285

== ENCOUNTER 2022-11-28 05:31 | Day surgery (SDC) | payer MEDICARE ==
[2022-11-28] MEDS ORDERED: ALPRAZolam 0.25 MG TAB PO PRN (06:00)
[2022-11-28] MEDS ORDERED: ASPIRIN 325 MG TAB PO STA (06:00)
[2022-11-28] MEDS ORDERED: ALPRAZolam 0.5 MG TAB PO PRN (06:00)
[2022-11-28] MEDS ORDERED: HEPARIN SODIUM,PORCINE 2,500 UNIT in SODIUM CHLORIDE 0.9% 250 ML IRRIGATION PRN (06:00)
[2022-11-28] MEDS ORDERED: ATORVASTATIN 80 MG TAB PO STA (06:00)
[2022-11-28] MEDS ORDERED: HEPARIN SODIUM,PORCINE 10,000 UNIT in SODIUM CHLORIDE 0.9% 1,000 ML IRRIGATION PRN (06:00)
[2022-11-28] MEDS ORDERED: NITROGLYCERIN SL TABS 0.4 MG TAB SUBLINGUAL PRN ×2 (06:00→08:30)
[2022-11-28] MEDS: SODIUM CHLORIDE 0.9% 1,000 ML in EMPTY BAG 1 BAG IV SCH ×3 (06:20→20:30)
[2022-11-28 06:43] LABS: Glucose,Whole Blood 135 mg/dL (70-110)
[2022-11-28] MEDS ORDERED: VERAPAMIL 2.5 MG/ML 2 ML AMP ONE (07:16)
[2022-11-28] MEDS ORDERED: HEPARIN SODIUM 1,000 UN/ML (10ML VL) ONE (07:36)
[2022-11-28] MEDS ORDERED: MIDAZOLAM 2 MG/2 ML VIAL IV ONE (07:45)
[2022-11-28] MEDS ORDERED: LIDOCAINE 1% INJ 10MG/ML (5 ML VIAL-PF) SQ ONE (07:48)
[2022-11-28] MEDS: VERAPAMIL SYRINGE (5 MG/10 ML) INTRAARTER ONE ×2 (07:50→08:28)
[2022-11-28] MEDS ORDERED: HEPARIN SODIUM 1,000 UN/ML (10ML VL) IV ONE (07:51)
[2022-11-28] MEDS ORDERED: NITROGLYCERIN 1000MCG/10ML SYRINGE INTRACORON ONE (08:25)
[2022-11-28] MEDS ORDERED: IOPAMIDOL-370 100ML BTL INJ ONE (08:28)
[2022-11-28] MEDS ORDERED: ZOLPIDEM 5 MG TAB PO PRN (08:30)
[2022-11-28] MEDS ORDERED: MAG HYDROX/AL HYDROX/SIMETH 30 ML CUP PO PRN (08:30)
[2022-11-28] MEDS ORDERED: SODIUM CHLORIDE 0.9% 1,000 ML in EMPTY BAG 1 BAG IV SCH (08:30)
[2022-11-28] MEDS ORDERED: ATROPINE SULFATE 0.1 MG/ML 10ML SYRINGE IV PRN (08:30)
[2022-11-28] MEDS ORDERED: RX INFO: IV CONTRAST WAS GIVEN 1 EACH MISC MISCELLANE PRN (08:30)
--- NOTE | 2022-11-28 08:34 | P.PCN ---
Date of Procedure: 11/28/22 Operative Findings: PERCUTANEOUS CORONARY INTERVENTION Performing physician Alexander Nevarez M.D. Procedure Performed: 1. Successful stenting of the distal and mid RCA using 3.0 x 38 and 3.5 x 23 mm Xience drug-eluting stent with an excellent angiographic results. 2. Adjunctive use of intravascular ultrasound and FFR of the RCA 3. Ultrasound-guided access of the right radial artery Indication: Severe coronary artery disease Approach: Right radial artery Complications: None Level of Sedation: Moderate with a sedation length of 41 minutes Procedure Discussion: After obtaining an informed consent the patient was brought to the cardiac finishing lab technician. The right radial artery was cannulated using micropuncture technique under ultrasound guidance, the micro-puncture wire passed easily then I placed a 6- [place] sheath. I gave the patient 2 mg of verapamil intra-arterial and 5000 use of heparin intravenous. After zeroing the Doppler wire and equalizing between the Doppler wire and guiding catheter we did engage the RCA and then RCA was wired using the Doppler wire. iFR was performed and came in to be abnormal 0.84. Subsequently I did intravascular ultrasound of the RCA which showed a diameter distally about 3 mm and in the midportion about 3.5 mm. I deployed distally 3.0 x 38 mm stent and in the midportion 3.5 x 23 mm stent. Postdilatation was performed using 3.5 mm balloon. The final angiogram showed excellent ang iographic results and the procedure was completed was no complication Postprocedure Management: 1. Dual antiplatelet therapy using aspirin and Plavix for at least 6 months 2. Aggressive cholesterol control 3. Risk factors modification
[2022-11-28] MEDS ORDERED: CLOPIDOGREL 75 MG TAB PO ONE (08:37)
[2022-11-28] MEDS: GABAPENTIN 300 MG CAP PO SCH ×2 (10:20→20:31)
[2022-11-28] MEDS: CHOLECALCIFEROL 25 MCG (1000 IU) TABLET PO SCH (10:20)
[2022-11-28] MEDS: ZINC SULFATE 220 MG CAP PO SCH (10:21)
[2022-11-28] MEDS: ASCORBIC ACID 500 MG TAB PO SCH (10:21)
[2022-11-28] MEDS: METOPROLOL TARTRATE 50 MG TAB PO SCH ×2 (10:23→20:31)
[2022-11-28 12:12] LABS: Glucose,Whole Blood 112 mg/dL (70-110)
[2022-11-28 12:42] VITALS: BMI 24.8
[2022-11-28] MEDS: LOSARTAN 50 MG TAB PO SCH (16:09)
[2022-11-28] MEDS: hydroCHLOROthiazide 12.5 MG CAP PO SCH (16:09)
[2022-11-28 17:33] LABS: Glucose,Whole Blood 137 mg/dL (70-110)
[2022-11-28] MEDS ORDERED: ATORVASTATIN 40 MG TAB PO SCH (21:00)
[2022-11-29] MEDS: SODIUM CHLORIDE 0.9% 1,000 ML in EMPTY BAG 1 BAG IV SCH ×2 (04:57→11:34)
[2022-11-29 06:43] LABS: African American GFR (CKD) 73 (>60 ml/min/1.73 sqM); Non-African American GFR(CKD) 63 (>60 ml/min/1.73 sqM)
[2022-11-29 07:32] VITALS: BP 114/62; PULSE 60; RESP 14; TEMP 98
[2022-11-29] MEDS ORDERED: CLOPIDOGREL 75 MG TAB PO SCH (09:00)
[2022-11-29] MEDS: ZINC SULFATE 220 MG CAP PO SCH (09:15)
[2022-11-29] MEDS: hydroCHLOROthiazide 12.5 MG CAP PO SCH (09:15)
[2022-11-29] MEDS: ASCORBIC ACID 500 MG TAB PO SCH (09:15)
[2022-11-29] MEDS: LOSARTAN 50 MG TAB PO SCH (09:15)
[2022-11-29] MEDS: CHOLECALCIFEROL 25 MCG (1000 IU) TABLET PO SCH (09:15)
[2022-11-29] MEDS: METOPROLOL TARTRATE 50 MG TAB PO SCH (09:15)
[2022-11-29] MEDS: GABAPENTIN 300 MG CAP PO SCH (09:18)
--- NOTE | 2022-11-29 09:22 | P.DS ---
Providers Attending physician: Alexander Nevarez Consults: 11/28/22 08:30 Consult Physician Routine Consulting Provider: [facility] Consult Reason/Comments: Post Interventional Patient Do you want consulting provider notified?: Already Contacted Primary care physician: Gopal Ng [facility] Course: The patient is a pleasant 82-year-old gentleman who underwent yesterday and FFR and stenting of the right coronary artery with a good angiographic results and without any complication He was seen this morning he is asymptomatic and he is hemodynamically stable. The right radial site is soft and nontender with no bruises. The patient is going to be discharged home on Plavix and oral anticoagulation. He doesn't need to be on aspirin. He also would be going on statin. He will follow-up with Dr. Mortensen in a week Plan - Discharge Summary Discharge Rx Participant: Yes New Discharge Prescriptions: Continue hydroCHLOROthiazide 12.5 mg PO DAILY Losartan [Cozaar] 100 mg PO DAILY #180 tab Gabapentin 600 mg PO BID Apixaban [Eliquis] 2.5 mg PO BID #180 tab Clopidogrel [Plavix] 75 mg PO DAILY #90 tab Metoprolol Tartrate [Lopressor] 50 mg PO BID Atorvastatin [Lipitor] 40 mg PO HS #30 tab Zinc Sulfate [Orazinc] 220 mg PO DAILY #30 cap Ascorbic Acid [Vitamin C] 1,000 mg PO DAILY #60 tab Cholecalciferol [Vitamin D3 (25 Mcg = 1000 Iu)] 50 mcg PO DAILY #30 tab Discontinued metFORMIN HCL 500 mg PO BID #0 Discharge Medication List Gabapentin 600 mg PO BID 10/22/22 [History] hydroCHLOROthiazide 12.5 mg PO DAILY 10/22/22 [History] Apixaban [Eliquis] 2.5 mg PO BID #180 tab 10/27/22 [Rx] Clopidogrel [Plavix] 75 mg PO DAILY #90 tab 10/27/22 [Rx] Losartan [Cozaar] 100 mg PO DAILY #180 tab 10/27/22 [Rx] Ascorbic Acid [Vitamin C] 1,000 mg PO DAILY #60 tab 11/03/22 [Rx] Atorvastatin [Lipitor] 40 mg PO HS #30 tab 11/03/22 [Rx] Cholecalciferol [Vitamin D3 (25 Mcg = 1000 Iu)] 50 mcg PO DAILY #30 tab 11/03/22 [Rx] Metoprolol Tartrate [Lopressor] 50 mg PO BID 11/03/22 [History] Zinc Sulfate [Orazinc] 220 mg PO DAILY #30 cap 11/03/22 [Rx] Follow up Appointment(s)/Referral(s): Pelon Mortensen MD [STAFF PHYSICIAN] - 1 Week ([place] [facility] )
[2022-11-30] MEDS ORDERED: metFORMIN 500 MG TAB PO SCH (09:00)
== END 2022-11-29 13:32 | disposition home health service (06) ==
LOC: CATHCVL 05:31 → 6NMEDSUR 08:30 → CATHCVL 11-29 13:32
PROVIDERS: ATTEND Internal Medicine Interventional Cardiology
DX: I25.10 Atherosclerotic heart disease of native coronary artery without angina pectoris (principal); Z79.01 Long term (current) use of anticoagulants; Z79.02 Long term (current) use of antithrombotics/antiplatelets; Z79.82 Long term (current) use of aspirin; Z79.84 Long term (current) use of oral hypoglycemic drugs; Z79.899 Other long term (current) drug therapy
CPT/HCPCS: 94760; 92978; 93799; 82565; 99152; 99153 ×2; C9600; C1887 ×2; C1769 ×3; C1894; C1725 ×2; C1753; C1874 ×2; J2250; J2001; J1644; Q9967

== ENCOUNTER 2022-11-30 11:15 | Observation (INO) | payer MEDICARE ==
[2022-11-30 11:23] LABS: Glucose,Whole Blood 201 mg/dL (70-110)
--- NOTE | 2022-11-30 11:33 | ED ---
General Adult HPI - General Chief complaint: Syncope Stated complaint: RAFAL,Syncope Time Seen by Provider: 11/30/22 11:25 Source: patient, EMS, RN notes reviewed, old records reviewed Mode of arrival: EMS - History of Present Illness Initial comments: This is an 82-year-old male who presents emergency department patient states he had his stent recently was just discharged from the hospital yesterday. Patient states she also stent placed about 3 weeks ago. Patient states he was out back near his garden watching his family and all of a sudden family stated he passed out. Patient states he was lying on the ground according to family passed out 3 other times after he became awake. Patient denies any chest pain difficulty breathing or shortness of breath per patient denies any palpitations. Patient denies any near syncopal episode feeling currently. Patient denies any recent fever chills. Patient states he had no injury when he went to the ground. Patient states he did not hit his head he did not hurt his neck denies any injury to the back chest abdomen or any of his extremities. - Related Data Home Medications Medication Instructions Recorded Confirmed Gabapentin 600 mg PO BID 10/22/22 11/30/22 hydroCHLOROthiazide 12.5 mg PO DAILY 10/22/22 11/30/22 Metoprolol Tartrate [Lopressor] 50 mg PO BID 11/03/22 11/30/22 metFORMIN HCL 500 mg PO DIRECTED 11/30/22 11/30/22 Previous Rx's Medication Instructions Recorded Apixaban [Eliquis] 2.5 mg PO BID #180 tab 10/27/22 Clopidogrel [Plavix] 75 mg PO DAILY #90 tab 10/27/22 Losartan [Cozaar] 100 mg PO DAILY #180 tab 10/27/22 Ascorbic Acid [Vitamin C] 1,000 mg PO DAILY #60 tab 11/03/22 Atorvastatin [Lipitor] 40 mg PO HS #30 tab 11/03/22 Cholecalciferol [Vitamin D3 (25 50 mcg PO DAILY #30 tab 11/03/22 Mcg = 1000 Iu)] Zinc Sulfate [Orazinc] 220 mg PO DAILY #30 cap 11/03/22 Allergies Allergy/AdvReac Type Severity Reaction Status Date / Time No Known Allergies Allergy Verified 11/30/22 12:47 Review of Systems ROS Statement: Those systems with pertinent positive or pertinent negative responses have been documented in the HPI. ROS Other: All systems not noted in ROS Statement are negative. Past Medical History Past Medical History: CVA/TIA, Diabetes Mellitus, GERD/Reflux, Hypertension, Myocardial Infarction (LA), Osteoarthritis (OA) Additional Past Medical History / Comment(s): BRADYCARDIA, neuropathy, stroke, CVA- STILL HAS SOME RESIDUAL RT SIDED WEAKNESS, WENT INTO CARDIAC ARREST WITH [place] ON 10/22/22-HAD TO HAVE CPR, ALSO TESTED +COVID AT SAME TIME, Last Myocardial Infarction Date:: 10/22/22 History of Any Multi-Drug Resistant Organisms: None Reported Past Surgical History: Appendectomy, Heart Catheterization With Stent, Hernia Repair, Orthopedic Surgery, Prostate Surgery Additional Past Surgical History / Comment(s): colonsocopy, maye knee arthroscopy, EGD with diliation, inguinal hernia repair.,. 02/14/19 Manuel fundoplasty. 02/20/19 Exploratory lap r/t perforated bowel. TURP. INCISIONAL HERNIA 02/2022 Past Anesthesia/Blood Transfusion Reactions: No Reported Reaction Additional Past Anesthesia/Blood Transfusion Reaction / Comment(s): no hx blood transfusion Date of Last Stent Placement:: 10/26/22 Past Psychological History: No Psychological Hx Reported Smoking Status: Never smoker - Past Family History Mother Family Medical History: No Reported History Father Family Medical History: Myocardial Infarction (LA) General Exam - General Exam Comments Initial Comments: GENERAL: Patient is well-developed and well-nourished. Patient is nontoxic and well- hydrated and is in no acute distress. ENT: Neck is soft and supple. No significant lymphadenopathy is noted. Oropharynx is clear. Moist mucous membranes. Neck has full range of motion without eliciting any pain. EYES: The sclera were anicteric and conjunctiva were pink and moist. Extraocular movements were intact and pupils were equal round and reactive to light. Eyelids were unremarkable. PULMONARY: Unlabored respirations. Good breath sounds bilaterally. No audible rales rhonchi or wheezing was noted. CARDIOVASCULAR: There is a regular rate and rhythm without any murmurs gallops or rubs. ABDOMEN: Soft and nontender with normal bowel sounds. SKIN: Skin is clear with no lesions or rashes and otherwise unremarkable. NEUROLOGIC: Patient is alert and oriented x3. Cranial nerves II through XII are grossly intact. Motor and sensory are also intact. Normal speech, volume and content. Symmetrical smile. MUSCULOSKELETAL: Normal extremities with adequate strength and full range of motion. No lower extremity swelling or edema. No calf tenderness. LYMPHATICS: No significant lymphadenopathy is noted PSYCHIATRIC: Normal psychiatric evaluation. Course Vital Signs 11/30/22 11/30/22 11:22 11:31 Temperature 97.6 F Pulse Rate 61 Respiratory 18 Rate Blood Pressure 124/51 O2 Sat by Pulse 99 Oximetry Medical Decision Making - Medical Decision Making EKG as interpreted by myself shows a sinus bradycardia 58 bpm AR interval is 206 QRS is 94 QT interval 428 QTC is 425 per patient's EKG shows no ST segment elevation or depression. Was pt. sent in by a medical professional or institution (, PA, ASSOCIATE PROFESSOR OF ART, urgent care, hospital, or correction...) When possible be specific @ -[No] Did you speak to anyone other than the patient for history (EMS, parent, family, police, friend...)? What history was obtained from this source @ -[No] Did you review nursing and triage notes (agree or disagree)? Why? @ -[I reviewed and agree with nursing and triage notes] Were old charts reviewed (outside hosp., previous admission, EMS record, old EKG, old radiological studies, urgent care reports/EKG's, correction records)? Report findings @ -Prior charts in prior laboratory on this patient Differential Diagnosis (chest pain, altered mental status, abdominal pain women, abdominal pain men, vaginal bleeding, weakness, fever, dyspnea, syncope, headache, dizziness, GI bleed, back pain, seizure, CVA, palpatations, mental health, musculoskeletal)? @ -Differential Syncope: Valvular disease, hypertrophic cardiomyopathy, pulmonary embolism, tamponade, tachycardia, bradycardia, LA, hypovolemia, hemorrhage, dissection, anemia, intracranial hemorrhage, seizure, hypoglycemia, carbon monoxide poisoning, this is not meant to be an all-inclusive list. EKG interpreted by me (3pts min.). @ -[As above] X-rays interpreted by me (1pt min.). @ -Chest x-ray shows no acute abnormality CT interpreted by me (1pt min.). @ -[None done] U/S interpreted by me (1pt. min.). @ -[None done] What testing was considered but not performed or refused? (CT, X-rays, U/S, labs)? Why? @ -[None] What meds were considered but not given or refused? Why? @ -[None] Did you discuss the management of the patient with other professionals (professionals i.e. , PA, ASSOCIATE PROFESSOR OF ART, lab, RT, psych nurse, social work instructor, production gear cutter, teacher, workplace rehabilitation officer, rn field case manager)? Give summary @ -I spoke with Dr. greenberg he agreed to admit the patient Was smoking cessation discussed for >3mins.? @ -[No] Was critical care preformed (if so, how long)? @ -[No] Were there social determinants of health that impacted care today? How? (Homelessness, low income, unemployed, alcoholism, drug addiction, transportation, low edu. Level, literacy, decrease access to med. care, [facility], rehab)? @ -[No] Was there de-escalation of care discussed even if they declined (Discuss DNR or withdrawal of care, Hospice)? DNR status @ -[No] What co-morbidities impacted this encounter? (DM, HTN, Smoking, COPD, CAD, Cancer, CVA, ARF, Chemo, Hep., AIDS, mental health diagnosis, sleep apnea, morbid obesity)? @ -[None] Was patient admitted / discharged? Hospital course, mention meds given and route, prescriptions, significant lab abnormalities, going to OR and other pertinent info. @ -Patient had an elevated troponin however he does have a cardiac catheterization. I spoke with Dr. greenberg he agreed to admit the patient he wanted a consult to neuro and cardiology. Undiagnosed new problem with uncertain prognosis? @ -[No] Drug Therapy requiring intensive monitoring for toxicity (Heparin, Nitro, Insulin, Cardizem)? @ -No Were any procedures done? @ -[No] Diagnosis/symptom? @ -Syncope Acute, or Chronic, or Acute on Chronic? @ -Acute Uncomplicated (without systemic symptoms) or Complicated (systemic symptoms)? @ -Complicated Side effects of treatment? @ -[No] Exacerbation, Progression, or Severe Exacerbation? @ -[No] Poses a threat to life or bodily function? How? (Chest pain, USA, LA, pneumonia, PE, COPD, DKA, ARF, appy, cholecystitis, CVA, Diverticulitis, Homicidal, Suicidal, threat to staff... and all critical care pts) @ -Yes this could lead to patient deficit secondary to an arrhythmia. - Lab Data Result diagrams: 11/30/22 11:35 11/30/22 11:35 Lab Results 11/30/22 11/30/22 11/30/22 Range/Units 11:22 11:35 11:35 WBC 8.5 (3.8-10.6) k/uL RBC 3.89 L (4.30-5.90) m/uL Hgb 12.2 L (13.0-17.5) gm/dL Hct 36.1 L (39.0-53.0) % MCV 92.8 (80.0-100.0) fL MCH 31.3 (25.0-35.0) pg MCHC 33.7 (31.0-37.0) g/dL RDW 14.1 (11.5-15.5) % Plt Count 166 (150-450) k/uL MPV 7.7 Neutrophils % 84 % Lymphocytes % 9 % Monocytes % 5 % Eosinophils % 1 % Basophils % 0 % Neutrophils # 7.1 (1.3-7.7) k/uL Lymphocytes # 0.8 L (1.0-4.8) k/uL Monocytes # 0.4 (0-1.0) k/uL Eosinophils # 0.1 (0-0.7) k/uL Basophils # 0.0 (0-0.2) k/uL PT 10.3 (9.0-12.0) sec INR 1.0 (<1.2) APTT 22.3 (22.0-30.0) sec Sodium (137-145) mmol/L Potassium (3.5-5.1) mmol/L Chloride (98-107) mmol/L Carbon Dioxide (22-30) mmol/L Anion Gap mmol/L BUN (9-20) mg/dL Creatinine (0.66-1.25) mg/dL Est GFR (CKD-EPI)AfAm (>60 ml/min/1.73 sqM) Est GFR (CKD-EPI)NonAf (>60 ml/min/1.73 sqM) Glucose (74-99) mg/dL POC Glucose (mg/dL) 201 H (70-110) mg/dL POC Glu Development Geologist ID Ida, Lizette Calcium (8.4-10.2) mg/dL Magnesium (1.6-2.3) mg/dL Total Bilirubin (0.2-1.3) mg/dL AST (17-59) U/L ALT (4-49) U/L Alkaline Phosphatase (38-126) U/L Troponin I (0.000-0.034) ng/mL Total Protein (6.3-8.2) g/dL Albumin (3.5-5.0) g/dL 11/30/22 11/30/22 Range/Units 11:35 11:35 WBC (3.8-10.6) k/uL RBC (4.30-5.90) m/uL Hgb (13.0-17.5) gm/dL Hct (39.0-53.0) % MCV (80.0-100.0) fL MCH (25.0-35.0) pg MCHC (31.0-37.0) g/dL RDW (11.5-15.5) % Plt Count (150-450) k/uL MPV Neutrophils % % Lymphocytes % % Monocytes % % Eosinophils % % Basophils % % Neutrophils # (1.3-7.7) k/uL Lymphocytes # (1.0-4.8) k/uL Monocytes # (0-1.0) k/uL Eosinophils # (0-0.7) k/uL Basophils # (0-0.2) k/uL PT (9.0-12.0) sec INR (<1.2) APTT (22.0-30.0) sec Sodium 136 L (137-145) mmol/L Potassium 4.8 (3.5-5.1) mmol/L Chloride 102 (98-107) mmol/L Carbon Dioxide 22 (22-30) mmol/L Anion Gap 12 mmol/L BUN 29 H (9-20) mg/dL Creatinine 1.37 H (0.66-1.25) mg/dL Est GFR (CKD-EPI)AfAm 55 (>60 ml/min/1.73 sqM) Est GFR (CKD-EPI)NonAf 48 (>60 ml/min/1.73 sqM) Glucose 175 H (74-99) mg/dL POC Glucose (mg/dL) (70-110) mg/dL POC Glu Development Geologist ID Calcium 8.9 (8.4-10.2) mg/dL Magnesium 2.0 (1.6-2.3) mg/dL Total Bilirubin 0.9 (0.2-1.3) mg/dL AST 38 (17-59) U/L ALT 22 (4-49) U/L Alkaline Phosphatase 63 (38-126) U/L Troponin I 0.321 H* (0.000-0.034) ng/mL Total Protein 7.2 (6.3-8.2) g/dL Albumin 4.1 (3.5-5.0) g/dL Disposition Clinical Impression: Syncope Disposition: ADMITTED IP TO THIS HOSP Referrals: Gopal Ng MD [Primary Care Provider] - 1-2 days Time of Disposition: 13:34
--- NOTE | 2022-11-30 12:12 | XR ---
EXAMINATION TYPE: XR chest 2V DATE OF EXAM: 11/30/2022 12:04 PM COMPARISON: Chest radiographs from 11/02/2022 TECHNIQUE: XR chest 2V Frontal and lateral views of the chest. CLINICAL INDICATION:Male, 82 years old with history of Chest Pain; FINDINGS: Lungs/Pleura: There is no evidence of pleural effusion, focal consolidation, or pneumothorax. Pulmonary vascularity: Unremarkable. Heart/mediastinum: Cardiomediastinal silhouette is unremarkable. Musculoskeletal: Multiple level degenerative disc disease changes seen throughout the spine. No acute osseous abnormality. Other findings: Left chest wall loop recorder. IMPRESSION: No acute cardiopulmonary disease/process.
[2022-11-30 12:15] LABS: Basophils % (A) 0 %; Eosinophils # (A) 0.1 k/uL (0-0.7); Eosinophils % (A) 1 %; HCT 36.1 % (39.0-53.0); HGB 12.2 gm/dL (13.0-17.5); Lymphocytes # (A) 0.8 k/uL (1.0-4.8); Lymphocytes % (A) 9 %; MCH 31.3 pg (25.0-35.0); MCHC 33.7 g/dL (31.0-37.0); MCV 92.8 fL (80.0-100.0); Mean Platelet Volume 7.7; Monocytes # (A) 0.4 k/uL (0-1.0); Monocytes % (A) 5 %; Neutrophils # (A) 7.1 k/uL (1.3-7.7); Neutrophils % (A) 84 %; Platelet Count 166 k/uL (150-450); RBC 3.89 m/uL (4.30-5.90); RDW 14.1 % (11.5-15.5); WBC 8.5 k/uL (3.8-10.6)
[2022-11-30 12:30] LABS: ALT 22 U/L (4-49); African American GFR (CKD) 55 (>60 ml/min/1.73 sqM); Albumin 4.1 g/dL (3.5-5.0); Anion Gap 12 mmol/L; Blood Urea Nitrogen 29 mg/dL (9-20); Calcium 8.9 mg/dL (8.4-10.2); Carbon Dioxide 22 mmol/L (22-30); Chloride 102 mmol/L (98-107); Glucose 175 mg/dL (74-99); Non-African American GFR(CKD) 48 (>60 ml/min/1.73 sqM); Sodium 136 mmol/L (137-145); Total Bilirubin 0.9 mg/dL (0.2-1.3); Total Protein 7.2 g/dL (6.3-8.2)
[2022-11-30 12:31] LABS: AST 38 U/L (17-59); Alkaline Phosphatase 63 U/L (38-126); Potassium 4.8 mmol/L (3.5-5.1)
[2022-11-30 12:36] LABS: Partial Thromboplastin Time 22.3 sec (22.0-30.0); Prothrombin Time 10.3 sec (9.0-12.0)
[2022-11-30] MEDS ORDERED: NITROGLYCERIN SL TABS 0.4 MG TAB SUBLINGUAL PRN (13:34)
--- NOTE | 2022-11-30 15:21 | P.HPIM ---
History of Present Illness This is a pleasant 82 years old male with past medical history of Diabetes Mellitus, GERD/Reflux, Hypertension, Osteoarthritis BRADYCARDIA, neuropathy, stroke, He was recently in this hospital for syncope with pulselessness requiring a brief CPR with suspected acute/subacute left occipital stroke (right arm weakness, dizziness and gait imbalance) He underwent cardiac cath and had PCI of left circumflex and the right coronary artery He was discharged on a Eliquis and Plavix. He had history of recurrent syncope over the last 2 months. Also patient with history of postural hypotension. He presents because of syncope. Since morning he was not feeling very well but he wants into the cart and to help his brother working, he himself was doing nothing just watching his brother when he felt dizzy and asked out, and the next thing He remembers he is in his house. he denies any urine bowel incontinence, no tongue biting, no jerky movements suspicious or seizure-like activity. However he vomited once at house and one in the ambulance on the way to the hospital when his family called 911 for him. Patient currently is fully awake and oriented, lying in bed who looks a little bit lethargic but no other specific complaints, he denies chest pain dyspnea or coughing, no GI or urinary complaints. He denies headache dizziness weakness or numbness currently. no blurred Vision or slurred speech. Left-sided cartilages consistent for his heart recently Also patient gives history of stroke last May with right hemiparesis, patient denies any new weakness Glucose 175, liver enzymes not elevated, troponin slightly up on 0.3 Chest x-ray: No acute process. I reviewed chest x-ray by myself EKG showing sinus bradycardia at [address]-T changes except for T-wave inversion in lead 3 and aVF Vitals stable and patient is afebrile, And he is saturating 99% on room air. His hemoglobin is 12.2 INR is 1.0. BMP is unremarkable. Troponin 0.3 t creatinine mildly elevated at 1.0 up to 1.3 EKG showing normal sinus rhythm at [address] T changes Review of Systems Review of systems CONSTITUTIONAL: No fever, no malaise, no fatigue. HEENT: No recent visual problems or hearing problems. Denied any sore throat. CARDIOVASCULAR: No orthopnea, PND, no palpitations, no syncope. PULMONARY: No shortness of breath, no cough, no hemoptysis. GASTROINTESTINAL: No diarrhea, no nausea, no vomiting, no abdominal pain. Normoactive bowel sounds. NEUROLOGICAL: No headaches, no weakness, no numbness. HEMATOLOGICAL: Denies any bleeding or petechiae. GENITOURINARY: Denies any burning micturition, frequency, or urgency. MUSCULOSKELETAL/RHEUMATOLOGICAL: Denies any joint pain, swelling, or any muscle pain. ENDOCRINE: Denies any polyuria or polydipsia. Past Medical History Past Medical History: CVA/TIA, Diabetes Mellitus, GERD/Reflux, Hypertension, Myocardial Infarction (ID), Osteoarthritis (OA) Additional Past Medical History / Comment(s): BRADYCARDIA, neuropathy, stroke, CVA- STILL HAS SOME RESIDUAL RT SIDED WEAKNESS, WENT INTO CARDIAC ARREST WITH ID ON 10/22/22-HAD TO HAVE CPR, ALSO TESTED +COVID AT SAME TIME, Last Myocardial Infarction Date:: 10/22/22 History of Any Multi-Drug Resistant Organisms: None Reported Past Surgical History: Appendectomy, Heart Catheterization With Stent, Hernia Repair, Orthopedic Surgery, Prostate Surgery Additional Past Surgical History / Comment(s): colonsocopy, maye knee arthroscopy, EGD with diliation, inguinal hernia repair.,. 02/14/19 Manuel fundoplasty. 02/20/19 Exploratory lap r/t perforated bowel. TURP. INCISIONAL HERNIA 02/2022 Past Anesthesia/Blood Transfusion Reactions: No Reported Reaction Additional Past Anesthesia/Blood Transfusion Reaction / Comment(s): no hx blood transfusion Date of Last Stent Placement:: 10/26/22 Past Psychological History: No Psychological Hx Reported Smoking Status: Never smoker - Past Family History Mother Family Medical History: No Reported History Father Family Medical History: Myocardial Infarction (ID) Medications and Allergies Home Medications Medication Instructions Recorded Confirmed Type Gabapentin 600 mg PO BID 10/22/22 11/30/22 History hydroCHLOROthiazide 12.5 mg PO DAILY 10/22/22 11/30/22 History Apixaban [Eliquis] 2.5 mg PO BID #180 tab 10/27/22 11/30/22 Rx Clopidogrel [Plavix] 75 mg PO DAILY #90 tab 10/27/22 11/30/22 Rx Losartan [Cozaar] 100 mg PO DAILY #180 tab 10/27/22 11/30/22 Rx Ascorbic Acid [Vitamin C] 1,000 mg PO DAILY #60 tab 11/03/22 11/30/22 Rx Atorvastatin [Lipitor] 40 mg PO HS #30 tab 11/03/22 11/30/22 Rx Cholecalciferol [Vitamin D3 (25 50 mcg PO DAILY #30 tab 11/03/22 11/30/22 Rx Mcg = 1000 Iu)] Metoprolol Tartrate [Lopressor] 50 mg PO BID 11/03/22 11/30/22 History Zinc Sulfate [Orazinc] 220 mg PO DAILY #30 cap 11/03/22 11/30/22 Rx metFORMIN HCL 500 mg PO DIRECTED 11/30/22 11/30/22 History Allergies Allergy/AdvReac Type Severity Reaction Status Date / Time No Known Allergies Allergy Verified 11/30/22 12:47 Physical Exam Vitals: Vital Signs Temp Pulse Resp BP Pulse Ox 11/30/22 11:31 97.6 F 11/30/22 11:22 61 18 124/51 99 Intake and Output 11/29/22 11/30/22 11/30/22 22:59 06:59 14:59 Other: Weight 70.307 kg GENERAL: The patient is alert and oriented x3, not in any acute distress. Well developed, well nourished. -HEENT: Pupils are round and equally reacting to light. EOMI. No scleral icterus. No conjunctival pallor. Normocephalic, atraumatic. No pharyngeal erythema. No thyromegaly. Dry mucous membranes CARDIOVASCULAR: S1 and S2 present. No murmurs, rubs, or gallops. PULMONARY: Chest is clear to auscultation, no wheezing , no crackles. ABDOMEN: Soft, nontender, nondistended, normoactive bowel sounds. No palpable organomegaly. MUSCULOSKELETAL: No joint swelling or deformity. EXTREMITIES: No cyanosis, clubbing, or pedal edema. NEUROLOGICAL: Gross neurological examination did not reveal any focal deficits. SKIN: No rashes. no petechiae. Results CBC & Chem 7: 11/30/22 11:35 11/30/22 11:35 Labs: Abnormal Lab Results - Last 24 Hours (Table) 11/30/22 11/30/22 11/30/22 Range/Units 11:22 11:35 11:35 RBC 3.89 L (4.30-5.90) m/uL Hgb 12.2 L (13.0-17.5) gm/dL Hct 36.1 L (39.0-53.0) % Lymphocytes # 0.8 L (1.0-4.8) k/uL Sodium 136 L (137-145) mmol/L BUN 29 H (9-20) mg/dL Creatinine 1.37 H (0.66-1.25) mg/dL Glucose 175 H (74-99) mg/dL POC Glucose (mg/dL) 201 H (70-110) mg/dL Troponin I (0.000-0.034) ng/mL 11/30/22 Range/Units 11:35 RBC (4.30-5.90) m/uL Hgb (13.0-17.5) gm/dL Hct (39.0-53.0) % Lymphocytes # (1.0-4.8) k/uL Sodium (137-145) mmol/L BUN (9-20) mg/dL Creatinine (0.66-1.25) mg/dL Glucose (74-99) mg/dL POC Glucose (mg/dL) (70-110) mg/dL Troponin I 0.321 H* (0.000-0.034) ng/mL Assessment and Plan Assessment: Recurrent syncope while he was outside in the garden Recent history of coronary artery disease status post PCI to the left circumflex and right coronary artery Recent history of stroke (history of acute/subacute CVA in the left inferior occipital lobe on CT) and right hemiparesis History of postural hypertension and mild acute kidney injury and dehydration Recent history of Syncopal episode with pulselessness requiring brief CPR. He had cardiac cath and showed coronary artery disease with PCI to left circumflex and RCA Paroxysmal Atrial fibrillation Hypertension Diabetes mellitus Hyperlipidemia History of bradycardia Plan: Continue with a Eliquis and Plavix Check orthostatic vitals Check TSH Cardiology consult Check hemoglobin A1c Cardiology and neurology consult Labs and medication were reviewed.. Continue same treatment. Continue with symptomatic treatment. Resume home medication. Monitor labs and vitals. DVT and GI prophylaxis. Further recommendations as per clinical course of the patient DVT prophylaxis: On a eliquis GI Prophylaxis: Pepcid PT/OT: Pending Prognosis is guarded
[2022-11-30] MEDS: GABAPENTIN 300 MG CAP PO SCH (20:57)
[2022-11-30] MEDS: ATORVASTATIN 40 MG TAB PO SCH (20:57)
[2022-11-30] MEDS: APIXABAN 2.5 MG TABLET PO SCH (20:57)
[2022-11-30] MEDS ORDERED: METOPROLOL TARTRATE 50 MG TAB PO SCH (21:00)
[2022-12-01] MEDS ORDERED: ASPIRIN 325 MG TAB PO SCH (09:00)
[2022-12-01] MEDS ORDERED: hydroCHLOROthiazide 12.5 MG CAP PO SCH (09:00)
[2022-12-01 09:07] LABS: Chol/HDL Ratio 3.72 Ratio; LDL Cholesterol,Calculated 63.1 mg/dL (0.0-131.0)
[2022-12-01] MEDS: SODIUM CHLORIDE 0.9% 1,000 ML IV SCH ×2 (09:29→09:41)
[2022-12-01] MEDS: CLOPIDOGREL 75 MG TAB PO SCH (09:42)
[2022-12-01] MEDS: APIXABAN 2.5 MG TABLET PO SCH ×2 (09:42→19:59)
[2022-12-01] MEDS: metFORMIN 500 MG TAB PO SCH ×2 (09:42→19:59)
[2022-12-01] MEDS: LOSARTAN 50 MG TAB PO SCH (09:42)
[2022-12-01] MEDS: CHOLECALCIFEROL 25 MCG (1000 IU) TABLET PO SCH (09:42)
[2022-12-01] MEDS: GABAPENTIN 300 MG CAP PO SCH ×2 (09:42→19:59)
[2022-12-01] MEDS: METOPROLOL TARTRATE 25 MG TAB PO SCH (09:42)
--- NOTE | 2022-12-01 10:28 | P.CNNES ---
History of Present Illness Consult date: 11/30/22 Requesting physician: Marvin Mackenzie Reason for Consult: Syncope History of Present Illness: Patient is a 82-year-old right-handed male came to the hospital by ambulance today at 11:15 AM for another syncopal spell. Patient states that he was just recently discharged from the hospital last night at 4 PM. This morning, his brother came over who was planting tobacco was. Patient also came outside, carrying very light stuff like a string. He felt that he was not feeling well, he just wanted to sit down, tried to go to the chair which was few feet away, but never made it and fell on the floor on the dirt. He did not hit his head. His brother called the ambulance and was brought here. He does not know how lo ng he was out for. He says that he passed out 3 times, don't know for how long he was on the grass. Patient states that he was recently admitted to the hospital and underwent placement of stents by Dr. New. Patient states that he was doing very well in the last few days. He was walking without any device for the last 4-5 days. Since he came out of the hospital admission, he was using either the cane or the walker at home. EMS flow sheet not available in the chart. Patient's vitals on arrival blood pressure 124/51, pulse rate 61, temperature 97.6. Blood test shows normal WBC, hemoglobin 12.2, platelets 166. PT/PTT normal. Sodium 136 potassium 4.8, BUN 29, creatinine 1.37. Hepatic panel is normal, troponin mildly elevated. EKG shows sinus bradycardia. Chest x-ray showed no acute cardiopulmonary disease. Fasting a.m. lipid panel: Triglyceride 140, cholesterol is 133, LDL 71, HDL is 33 at. Hemoglobin A1c 6.7 Serum folate is 9.0. Vitamin B12 is 255 (normal is 200-944). Patient received B12 injection and folate on last admission. Carotid duplex was reported as moderate at this chronic changes at the bilateral carotid bifurcation. There may be a mild less than 50% stenosis of both proximal ICA. Doppler measurement do not suggest hemodynamically significant internal carotid artery stenosis on either side. Note the supervisor filling and packing indicates an arrhythmia during scanning. Patient's records from [facility] revealed on 10/07/2022 he had a CTA head/neck and MRI are reported as abrupt occlusion of the P1 segment of the left posterior cerebral artery correlating with an ischemic zone in the left occipital. Atherosclerosis in the carotid bulb and internal carotid artery origins without significant stenosis. There is less than 50% stenosis. MRI of the brain is reported as tapered narrowing of the P1 segment. In the body of the MRA report is reported this diffusion restriction in the left occipital lobe as well as left inferior medial temporal lobe in the posterior cerebral artery vascular territory. There is no report of NOHEMI. MRI brain 10/23/2022 revealed an acute stroke involving the left ventral medial emmett, left medial occipital region. I personally reviewed that MRI and agree with the findings. EEG: Is normal. There is no focal slowing, from distress or seizure on the EEG. Review of Systems Constitutional: Denies chills, Denies fever Eyes: bilateral blurred vision, denies diplopia, denies discharge, denies loss of vision Ears: deny: decreased hearing, ear discharge Ears, nose, mouth and throat: Denies headache, Denies sore throat Cardiovascular: Denies chest pain, Denies shortness of breath Respiratory: Denies cough, Denies excessive sputum Gastrointestinal: Denies abdominal pain, Denies diarrhea, Denies nausea, Denies vomiting Musculoskeletal: Denies low back pain, Denies myalgias, Denies neck pain Integumentary: Denies pruritus, Denies rash Neurological: Reports as per HPI Psychiatric: Reports memory loss, Denies irritability Endocrine: Reports fatigue, Denies weight change Past Medical History Past Medical History: CVA/TIA, Diabetes Mellitus, GERD/Reflux, Hypertension, Myocardial Infarction (OK), Osteoarthritis (OA) Additional Past Medical History / Comment(s): BRADYCARDIA, neuropathy, stroke, CVA- STILL HAS SOME RESIDUAL RT SIDED WEAKNESS, WENT INTO CARDIAC ARREST WITH [facility] ON 10/22/22-HAD TO HAVE CPR, ALSO TESTED +COVID AT SAME TIME, Cardiac Stent x1 10/24/2022 and Cardiac Stent x1 11/28/22; Loop Recorder placed at [facility] in [place] 10-09-2022 Last Myocardial Infarction Date:: 10/22/22 History of Any Multi-Drug Resistant Organisms: None Reported Past Surgical History: Appendectomy, Heart Catheterization With Stent, Hernia Repair, Orthopedic Surgery, Prostate Surgery Additional Past Surgical History / Comment(s): colonsocopy, maye knee arthroscopy, EGD with diliation, inguinal hernia repair.,. 02/14/19 Manuel fundoplasty. 02/20/19 Exploratory lap r/t perforated bowel. TURP. Loop Recorder placed at [facility] in [place] 10-09-2022. INCISIONAL HERNIA 02/2022 Past Anesthesia/Blood Transfusion Reactions: No Reported Reaction Additional Past Anesthesia/Blood Transfusion Reaction / Comment(s): no hx blood transfusion Date of Last Stent Placement:: 11/28/2022 Past Psychological History: No Psychological Hx Reported Smoking Status: Never smoker Past Alcohol Use History: None Reported Additional Past Alcohol Use History / Comment(s): pt states he has not drank in over 4 years Past Drug Use History: None Reported - Past Family History Mother Family Medical History: No Reported History Father Family Medical History: Myocardial Infarction (OK) Medications and Allergies Home Medications Medication Instructions Recorded Confirmed Type Gabapentin 600 mg PO BID 10/22/22 11/30/22 History hydroCHLOROthiazide 12.5 mg PO DAILY 10/22/22 11/30/22 History Apixaban [Eliquis] 2.5 mg PO BID #180 tab 10/27/22 11/30/22 Rx Clopidogrel [Plavix] 75 mg PO DAILY #90 tab 10/27/22 11/30/22 Rx Losartan [Cozaar] 100 mg PO DAILY #180 tab 10/27/22 11/30/22 Rx Ascorbic Acid [Vitamin C] 1,000 mg PO DAILY #60 tab 11/03/22 11/30/22 Rx Atorvastatin [Lipitor] 40 mg PO HS #30 tab 11/03/22 11/30/22 Rx Cholecalciferol [Vitamin D3 (25 50 mcg PO DAILY #30 tab 11/03/22 11/30/22 Rx Mcg = 1000 Iu)] Metoprolol Tartrate [Lopressor] 50 mg PO BID 11/03/22 11/30/22 History Zinc Sulfate [Orazinc] 220 mg PO DAILY #30 cap 11/03/22 11/30/22 Rx metFORMIN HCL 500 mg PO DIRECTED 11/30/22 11/30/22 History Allergies Allergy/AdvReac Type Severity Reaction Status Date / Time No Known Allergies Allergy Verified 11/30/22 12:47 Physical Examination - Vital Signs Vital Signs: Vital Signs Temp Pulse Pulse Pulse Pulse Resp BP 11/30/22 15:00 97.6 F 62 18 11/30/22 14:50 61 18 129/61 11/30/22 13:55 64 71 68 11/30/22 11:31 97.6 F 11/30/22 11:22 61 18 124/51 BP BP BP Pulse Ox 11/30/22 15:00 128/66 98 11/30/22 14:50 99 11/30/22 13:55 133/67 109/61 120/59 11/30/22 11:31 11/30/22 11:22 99 Intake and Output 11/30/22 11/30/22 11/30/22 06:59 14:59 22:59 Other: # Voids 1 Weight 70.307 kg 70.307 kg Patient is an elderly male, very pleasant, in no acute distress. Patient is alert awake oriented to time place and person. Speech and language functions are normal. Patient can name and repeat very well. No aphasia or dysarthria. Attention, concentration and fund of knowledge is adequate. On cranial nerve examination, pupils are equal, round and reacting to light, visual madera are full on confrontation, with no neglect on double simultaneous stimulation. Extraocular muscles are intact with no nystagmus. Patient has mild right facial asymmetry very very slight. His tongue protrudes to the midline. Palatal elevation and sensation normal, hearing and shoulder shrug normal, facial sensation normal. On muscle strength testing, there is no pronator drift and the strength is (right/left) deltoid 5/5, biceps 5/5, triceps 5/5, shipper/receiver 5-/5, hip flexion 5-/5, ankle dorsiflexion 5/5. Deep tendon reflexes are symmetric 1 all over and plantars downgoing bilaterally. Sensory to touch is equal with no neglect on double simultaneous stimulation. Cerebellar function showed slight tremulousness/ataxia for bilateral upper limbs . No ataxia in the lower limbs. Tone and bulk of muscles normal. Gait deferred.. On general examination, there is no carotid bruit or murmur, S1-S2 audible. Chest is clear on consultation. Abdomen is soft nontender. No organomegaly, bowel sounds present. Peripheral pulses are present. No edema. Results - Laboratory Findings CBC and BMP: 11/30/22 11:35 11/30/22 11:35 Abnormal Lab Findings: Abnormal Labs 0611/30/22 11/30/22 11:22 11:35 11:35 RBC 3.89 L Hgb 12.2 L Hct 36.1 L Lymphocytes # 0.8 L Sodium 136 L BUN 29 H Creatinine 1.37 H Glucose 175 H POC Glucose (mg/dL) 201 H Troponin I 11/30/22 11/30/22 11:35 14:25 RBC Hgb Hct Lymphocytes # Sodium BUN Creatinine Glucose POC Glucose (mg/dL) Troponin I 0.321 H* 0.193 H* Assessment and Plan Assessment: * Recurrent syncopal spells, probably due to orthostasis, rule out arrhythmia. Patient's orthostatics are slightly positive. 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 Plan: * Patient probably had syncopal spell. Need further cardiac workup. * Orthostatics checked supine blood pressure 120/59, with pulse rate 68, sitting 133/67, pulse 64, standing 109/61 with pulse of 71. * Orthostatics are slightly abnormal. Recommend tilt table test. * Cardiology consultation for loop recorder interrogation for ruling out arrhythmia. * EEG on 10/23/2022, which was normal. * Carotid Doppler from 10/23/2022 showed moderate atherosclerotic changes at the bilateral carotid bifurcation. Less than 50% stenosis in both proximal ICA. Antegrade flow in both vertebral arteries. No need to repeat carotid Doppler. * 2-D echo from 10/23/2022 revealed normal left ventricular systolic function with EF 50-55%. Left atrial size is mildly increased in volume. Mitral valve thickened. Mild MR, moderate AR. Cardiology on board. * Patient has paroxysmal atrial fibrillation. Continue Eliquis 2.5 mg twice a day, Plavix 75 mg. * Lipid panel with cholesterol 124, LDL 63, HDL 33 and triglycerides 138. Continue Lipitor 40 mg daily. * Hemoglobin A1c 6.7 on 10/24/2022. * Neurology will follow. Thank you for the consult. Time with Patient: Greater than 30
--- NOTE | 2022-12-01 12:14 | P.PN ---
Subjective This is a pleasant 82 years old male with past medical history of Diabetes Mellitus, GERD/Reflux, Hypertension, Osteoarthritis BRADYCARDIA, neuropathy, stroke, He was recently in this hospital for syncope with pulselessness requiring a brief CPR with suspected acute/subacute left occipital stroke (right arm weakness, dizziness and gait imbalance) He underwent cardiac cath and had PCI of left circumflex and the right coronary artery He was discharged on a Eliquis and Plavix. He had history of recurrent syncope over the last 2 months. Also patient with history of postural hypotension. He presents because of syncope. Since morning he was not feeling very well but he wants into the cart and to help his brother working, he himself was doing nothing just watching his brother when he felt dizzy and asked out, and the next thing He remembers he is in his house. he denies any urine bowel incontinence, no tongue biting, no jerky movements suspicious or seizure-like activity. However he vomited once at house and one in the ambulance on the way to the hospital when his family called 911 for him. Patient currently is fully awake and oriented, lying in bed who looks a little bit lethargic but no other specific complaints, he denies chest pain dyspnea or coughing, no GI or urinary complaints. He denies headache dizziness weakness or numbness currently. no blurred Vision or slurred speech. Left-sided cartilages consistent for his heart recently Also patient gives history of stroke last October with right hemiparesis, patient denies any new weakness Glucose 175, liver enzymes not elevated, troponin slightly up on 0.3 Chest x-ray: No acute process. I reviewed chest x-ray by myself EKG showing sinus bradycardia at [address]-T changes except for T-wave inversion in lead 3 and aVF Vitals stable and patient is afebrile, And he is saturating 99% on room air. His hemoglobin is 12.2 INR is 1.0. BMP is unremarkable. Troponin 0.3 t creatinine mildly elevated at 1.0 up to 1.3 EKG showing normal sinus rhythm at [address] T changes 12/01/2022 Patient with known new symptoms. No more dizziness or syncope. Hemodynamically stable but orthostatic vitals from yesterday they were positive Also patient with evidence of acute kidney injury with creatinine 1.0 and baseline equal or less than 1.0. I agree with starting normal saline 50 mL/h Also hold hydrochlorothiazide Pending pacemaker interrogation with sorting grapple operator team Neurologist on the case Possible discharge in 24-48 hours physical therapy evaluation is requested Objective - Vital Signs Vital signs: Vital Signs Temp 97.6 F 12/01/22 06:53 Pulse 59 L 12/01/22 06:53 Resp 18 12/01/22 06:53 BP 120/64 12/01/22 06:53 Pulse Ox 97 12/01/22 06:53 FiO2 Intake & Output 11/30/22 12/01/22 12/01/22 18:59 06:59 18:59 Output Total 1175 Balance -1175 Weight 70.307 kg Output: Urine 1175 Other: Voiding Method Toilet # Voids 1 1 - Exam GENERAL: The patient is alert and oriented x3, not in any acute distress. Well developed, well nourished. HEENT: Pupils are round and equally reacting to light. EOMI. No scleral icterus. No conjunctival pallor. Normocephalic, atraumatic. No pharyngeal erythema. No thyromegaly. CARDIOVASCULAR: S1 and S2 present. No murmurs, rubs, or gallops. PULMONARY: Chest is clear to auscultation, no wheezing , no crackles. ABDOMEN: Soft, nontender, nondistended, normoactive bowel sounds. No palpable organomegaly. MUSCULOSKELETAL: No joint swelling or deformity. EXTREMITIES: No cyanosis, clubbing, or pedal edema. NEUROLOGICAL: Gross neurological examination did not reveal any focal deficits. SKIN: No rashes. no petechiae. - Labs CBC & Chem 7: 11/30/22 11:35 11/30/22 11:35 Labs: Abnormal Lab Results - Last 24 Hours (Table) 11/30/22 11/30/22 11/30/22 Range/Units 11:35 11:35 11:35 RBC 3.89 L (4.30-5.90) m/uL Hgb 12.2 L (13.0-17.5) gm/dL Hct 36.1 L (39.0-53.0) % Lymphocytes # 0.8 L (1.0-4.8) k/uL Sodium 136 L (137-145) mmol/L BUN 29 H (9-20) mg/dL Creatinine 1.37 H (0.66-1.25) mg/dL Glucose 175 H (74-99) mg/dL Troponin I 0.321 H* (0.000-0.034) ng/mL HDL Cholesterol (40.00-60.00) mg/dL 11/30/22 11/30/22 11/30/22 Range/Units 11:35 14:25 17:40 RBC (4.30-5.90) m/uL Hgb (13.0-17.5) gm/dL Hct (39.0-53.0) % Lymphocytes # (1.0-4.8) k/uL Sodium (137-145) mmol/L BUN (9-20) mg/dL Creatinine (0.66-1.25) mg/dL Glucose (74-99) mg/dL Troponin I 0.193 H* 0.200 H* (0.000-0.034) ng/mL HDL Cholesterol 33.30 L (40.00-60.00) mg/dL Assessment and Plan Assessment: Recurrent syncope while he was outside in the garden . Suspected secondary to orthostatic hypotension and dehydration. Pending pacemaker interrogation Acute kidney injury Recent history of coronary artery disease status post PCI to the left circumflex and right coronary artery Recent history of stroke (history of acute/subacute CVA in the left inferior occipital lobe on CT) and right hemiparesis History of postural hypertension and mild acute kidney injury and dehydration Recent history of Syncopal episode with pulselessness requiring brief CPR. He had cardiac cath and showed coronary artery disease with PCI to left circumflex and RCA Paroxysmal Atrial fibrillation Hypertension Diabetes mellitus Hyperlipidemia History of bradycardia Plan: continue with normal saline Continue with a Eliquis and Plavix Cardiology consult Check hemoglobin A1c neurology consult given history of stroke Labs and medication were reviewed.. Continue same treatment. Continue with symptomatic treatment. Resume home medication. Monitor labs and vitals. DVT and GI prophylaxis. Further recommendations as per clinical course of the patient DVT prophylaxis: On a eliquis GI Prophylaxis: Pepcid PT/OT: Pending Prognosis is guarded
--- NOTE | 2022-12-01 14:42 | P.CRDCN ---
History of Present Illness Consult date: 12/01/22 Consult reason: sycope History of present illness: History of present illness: This is an 82-year-old male patient of Dr. Mortensen with a past medical history of atrial fibrillation, CVA, coronary artery disease, hypertension, hyperlipidemia, and bradycardia. Patient was recently in the hospital and underwent cardiac catheterization on 10/22/2022 with stenting of the proximal and mid LAD. Patient returned on underwent stenting of the distal and mid RCA. Patient was discharged in stable condition. We have been asked to evaluate the patient for syncopal episode. Patient gives history that he was outside by the [employer] watching his brother work and he suddenly didn't feel very good felt like he was going to pass out and went to the ground. He denies any loss of bowel or bladder. He states was told that it happened 2-3 more times. In the morning he had had coffee and cereal for breakfast. This probably occurred about 9:30 in the morning on 11/30. Patient came into [facility] emergency center for evaluation. EKG sinus rhythm at 58 bpm Chest x-ray: No acute findings WBC 8.5, hemoglobin 12.2, platelet count 166. INR 1. Sodium 136, potassium 4.8, BUN 29 creatinine 1.37. Troponins 0.3-1, 0.193 and 0.200. Liver function tests are normal. Home cardiac medications: Eliquis 2.5 mg twice daily, atorvastatin 40 mg at bedtime, Plavix 75 mg daily, Hytrin for thiazide 12.5 g daily, losartan 100 mg daily, Lopressor 50 mg twice daily PCI 11/28/2022 stenting of the distal and mid RCA PCI 10/22/2022 successful stenting of proximal and mid LAD Cardiac catheterization 10/[address] Maya revealed right coronary artery 50-60% stenosis, LAD proximal and mid with 80-90 and a segmental lesion 70-80% stenosis, third OM branch 70-80% stenosis, proximal circumflex has moderate stenosis. Echocardiogram 10/23/2022 reveals normal LV systolic function. Review Of Systems: At the time of my evaluation: Constitutional: No fever, no chills. No weakness, fatigue or lethargy. EENT: No headache. No dizziness. Lungs: No shortness of breath, cough, no sputum production. No wheezing. Cardiovascular: No chest pain, no lower extremity edema. No palpitations. No paroxysmal nocturnal dyspnea. No orthopnea. No lightheadedness or dizziness. Reported syncopal episode. Abdominal: No abdominal pain. No nausea, vomiting. No diarrhea. No constipation. No bloody or tarry stools. Genitourinary: No dysuria.. No urinary retention. Musculoskeletal: No myalgias. No muscle weakness, no frequent falls. No back pain. No neck pain. Integumentary: No wounds. No rash. No unusual bruising. Neurologic: No aphasia. No facial droop. No change in mentation. No head injury. No headache. Physical examination: Gen: This is an 82-year-old male resting in bed appears to be comfortable no acute distress VS: reviewed HEENT: Head is atraumatic, normocephalic. Pupils equal, round. Sclerae is anicteric. NECK: Supple. No JVD. Right carotid bruit LUNGS: Clear to auscultation. No wheezes or rhonchi. No intercostal r etractions. HEART: Regular rate and rhythm. No murmur. ABDOMEN: Soft No tenderness. EXTREMITIES: No pedal edema. No calf tenderness. NEUROLOGICAL: Patient is awake, alert and oriented x3. Assessment: Syncopal episodes Recent Covid 19 Coronary artery disease with previous stenting of the proximal and mid LAD, followed by stenting of the distal and mid RCA Elevated troponin, may be secondary to recent stenting and/or covid infection, no signs of ACS Paroxysmal atrial fibrillation, currently maintaining sinus mechanism History of CVA in the left inferior occipital lobe History of bradycardia Hypertension Plan: Continue telemetry monitoring for 24 hours Continue patient's home cardiac medications except for changes below Lopressor decreased to 25 mg 1 time daily Discontinue aspirin and hydrochlorothiazide Tilt table test today Interrogate loop recorder particular looking at the hours of 8:30 to 10:30 AM yesterday Further recommendations to follow based upon clinical course Thank you kindly for this consultation. Nurse practitioner note has been reviewed, I agree with documented findings and plan of care. Patient was seen and examined. Past Medical History Past Medical History: CVA/TIA, Diabetes Mellitus, GERD/Reflux, Hypertension, Myocardial Infarction ([place]), Osteoarthritis ([place]) Additional Past Medical History / Comment(s): BRADYCARDIA, neuropathy, stroke, CVA- STILL HAS SOME RESIDUAL RT SIDED WEAKNESS, WENT INTO CARDIAC ARREST WITH [place] ON 10/22/22-HAD TO HAVE CPR, ALSO TESTED +COVID AT SAME TIME, Cardiac Stent x1 10/24/2022 and Cardiac Stent x1 11/28/22; Loop Recorder placed at [facility] in [place] 10-09-2022 Last Myocardial Infarction Date:: 10/22/22 History of Any Multi-Drug Resistant Organisms: None Reported Past Surgical History: Appendectomy, Heart Catheterization With Stent, Hernia Repair, Orthopedic Surgery, Prostate Surgery Additional Past Surgical History / Comment(s): colonsocopy, maye knee arthroscopy, EGD with diliation, inguinal hernia repair.,. 02/14/19 Manuel fundo plasty. 02/20/19 Exploratory lap r/t perforated bowel. TURP. Loop Recorder placed at [facility] in [place] 10-09-2022. INCISIONAL HERNIA 02/2022 Past Anesthesia/Blood Transfusion Reactions: No Reported Reaction Additional Past Anesthesia/Blood Transfusion Reaction / Comment(s): no hx blood transfusion Date of Last Stent Placement:: 11/28/2022 Past Psychological History: No Psychological Hx Reported Smoking Status: Never smoker Past Alcohol Use History: None Reported Additional Past Alcohol Use History / Comment(s): pt states he has not drank in over 4 years Past Drug Use History: None Reported - Past Family History Mother Family Medical History: No Reported History Father Family Medical History: Myocardial Infarction ([place]) Medications and Allergies Home Medications Medication Instructions Recorded Confirmed Type Gabapentin 600 mg PO BID 10/22/22 11/30/22 History hydroCHLOROthiazide 12.5 mg PO DAILY 10/22/22 11/30/22 History Apixaban [Eliquis] 2.5 mg PO BID #180 tab 10/27/22 11/30/22 Rx Clopidogrel [Plavix] 75 mg PO DAILY #90 tab 10/27/22 11/30/22 Rx Losartan [Cozaar] 100 mg PO DAILY #180 tab 10/27/22 11/30/22 Rx Ascorbic Acid [Vitamin C] 1,000 mg PO DAILY #60 tab 11/03/22 11/30/22 Rx Atorvastatin [Lipitor] 40 mg PO HS #30 tab 11/03/22 11/30/22 Rx Cholecalciferol [Vitamin D3 (25 50 mcg PO DAILY #30 tab 11/03/22 11/30/22 Rx Mcg = 1000 Iu)] Metoprolol Tartrate [Lopressor] 50 mg PO BID 11/03/22 11/30/22 History Zinc Sulfate [Orazinc] 220 mg PO DAILY #30 cap 11/03/22 11/30/22 Rx metFORMIN HCL 500 mg PO DIRECTED 11/30/22 11/30/22 History Allergies Allergy/AdvReac Type Severity Reaction Status Date / Time No Known Allergies Allergy Verified 11/30/22 12:47 Physical Exam Vitals: Vital Signs Temp Pulse Pulse Pulse Pulse Resp BP 12/01/22 11:28 97.8 F 62 19 12/01/22 06:53 97.6 F 59 L 18 12/01/22 04:18 98.1 F 61 16 11/30/22 19:16 97.8 F 61 16 11/30/22 15:00 97.6 F 62 18 11/30/22 14:50 61 18 129/61 BP BP BP Pulse Ox 12/01/22 11:28 121/65 97 12/01/22 06:53 120/64 97 12/01/22 04:18 104/50 100 11/30/22 19:16 98/56 98 11/30/22 15:00 128/66 98 11/30/22 14:50 99 Intake and Output 11/30/22 12/01/22 12/01/22 22:59 06:59 14:59 Output Total 650 525 Balance -650 -525 Output: Urine 650 525 Other: Voiding Method Toilet # Voids 1 1 Weight 70.307 kg Results 11/30/22 11:35 11/30/22 11:35 Cardiac Enzymes 11/30/22 11/30/22 11/30/22 Range/Units 11:35 14:25 17:40 Troponin I 0.321 H* 0.193 H* 0.200 H* (0.000-0.034) ng/mL Lipids 11/30/22 Range/Units 11:35 Triglycerides 138.00 (0.00-149.00) mg/dL Cholesterol 124.00 (0.00-200.00) mg/dL HDL Cholesterol 33.30 L (40.00-60.00) mg/dL Cholesterol/HDL Ratio 3.72 Ratio Current Medications Generic Name Dose Route Start Last Admin Trade Name Freq PRN Reason Stop Dose Admin Apixaban 2.5 mg 11/30/22 21:00 12/01/22 09:42 Apixaban 2.5 Mg Tablet PO 2.5 mg BID RAJ Administration Protocol Atorvastatin Calcium 40 mg 11/30/22 21:00 11/30/22 20:57 Atorvastatin 40 Mg Tab PO 40 mg HS RAJ Administration Cholecalciferol 50 mcg 12/01/22 09:00 12/01/22 09:42 Cholecalciferol 25 Mcg (1000 Iu) Tablet PO 50 mcg DAILY RAJ Administration Clopidogrel Bisulfate 75 mg 12/01/22 09:00 12/01/22 09:42 Clopidogrel 75 Mg Tab PO 75 mg DAILY RAJ Administration Gabapentin 600 mg 11/30/22 21:00 12/01/22 09:42 Gabapentin 300 Mg Cap PO 600 mg BID RAJ Administration Sodium Chloride 1,000 mls @ 50 mls/hr 12/01/22 08:45 12/01/22 09:41 Saline 0.9% IV 50 mls/hr .Q20H RAJ Administration Sodium Chloride 1,000 mls @ 50 mls/hr 12/01/22 08:45 12/01/22 09:29 Saline 0.9% IV Not Given .Q20H RAJ Losartan Potassium 100 mg 12/01/22 09:00 12/01/22 09:42 Losartan 50 Mg Tab PO 100 mg DAILY RAJ Administration Metformin HCl 500 mg 12/01/22 09:00 12/01/22 09:42 Metformin 500 Mg Tab PO 500 mg BID RAJ Administration Metoprolol Tartrate 25 mg 12/01/22 09:00 12/01/22 09:42 Metoprolol Tartrate 25 Mg Tab PO 25 mg DAILY RAJ Administration Nitroglycerin 0.4 mg 11/30/22 13:34 Nitroglycerin Sl Tabs 0.4 Mg Tab SUBLINGUAL Q5M PRN Chest Pain Intake and Output 11/30/22 12/01/22 12/01/22 22:59 06:59 14:59 Output Total 650 525 Balance -650 -525 Output: Urine 650 525 Other: Voiding Method Toilet # Voids 1 1 Weight 70.307 kg 11/30/22 11:35 11/30/22 11:35
[2022-12-01] MEDS: ATORVASTATIN 40 MG TAB PO SCH (19:59)
[2022-12-02] MEDS: SODIUM CHLORIDE 0.9% 1,000 ML IV SCH ×2 (06:08)
[2022-12-02] MEDS: GABAPENTIN 300 MG CAP PO SCH (08:01)
[2022-12-02] MEDS: APIXABAN 2.5 MG TABLET PO SCH (08:02)
[2022-12-02] MEDS: METOPROLOL TARTRATE 25 MG TAB PO SCH (08:02)
[2022-12-02] MEDS: CHOLECALCIFEROL 25 MCG (1000 IU) TABLET PO SCH (08:02)
[2022-12-02] MEDS: LOSARTAN 50 MG TAB PO SCH (08:02)
[2022-12-02] MEDS: CLOPIDOGREL 75 MG TAB PO SCH (08:02)
[2022-12-02] MEDS: metFORMIN 500 MG TAB PO SCH (09:00)
--- NOTE | 2022-12-02 09:46 | P.PN ---
Subjective Progress Note Date: 12/02/22 History of present illness: This is an 82-year-old male patient of Dr. Mortensen with a past medical history of atrial fibrillation, CVA, coronary artery disease, hypertension, hyperlipidemia, and bradycardia. Patient was recently in the hospital and underwent cardiac catheterization on 10/22/2022 with stenting of the proximal and mid LAD. Patient returned on 627 underwent stenting of the distal and mid RCA. Patient was discharged in stable condition. We have been asked to evaluate the patient for syncopal episode. Patient gives history that he was outside by the garden watching his brother work and he suddenly didn't feel very good felt like he was going to pass out and went to the ground. He denies any loss of bowel or bladder. He states was told that it happened 2-3 more times. In the morning he had had coffee and cereal for breakfast. This probably occurred about 9:30 in the morning on 11/30. Patient came into [facility] emergency center for evaluation. EKG sinus rhythm at 58 bpm Chest x-ray: No acute findings WBC 8.5, hemoglobin 12.2, platelet count 166. INR 1. Sodium 136, potassium 4.8, BUN 29 creatinine 1.37. Troponins 0.3-1, 0.193 and 0.200. Liver function tests are normal. Home cardiac medications: Eliquis 2.5 mg twice daily, atorvastatin 40 mg at bedtime, Plavix 75 mg daily, Hytrin for thiazide 12.5 g daily, losartan 100 mg daily, Lopressor 50 mg twice daily PCI 11/28/2022 stenting of the distal and mid RCA PCI 10/22/2022 successful stenting of proximal and mid LAD Cardiac catheterization 10/[address] Maya revealed right coronary artery 50-60% stenosis, LAD proximal and mid with 80-90 and a segmental lesion 70-80% stenosis, third OM branch 70-80% stenosis, proximal circumflex has moderate stenosis. Echocardiogram 10/23/2022 reveals normal LV systolic function. 12/02 Patient is seen today overnight. He underwent tilt table testing yesterday which was negative. Event monitor was interrogated and no events were identified. Patient denies having any syncopal episodes since arrival. He states he normally does have a little bit of lightheadedness when he stands. His blood pressure 132/64, heart rate is in the 60s Physical examination: Gen: This is an 82-year-old male resting in bed appears to be comfortable no acute distress VS: reviewed HEENT: Head is atraumatic, normocephalic. Pupils equal, round. Sclerae is anicteric. NECK: Supple. No JVD. Right carotid bruit LUNGS: Clear to auscultation. No wheezes or rhonchi. No intercostal retractions. HEART: Regular rate and rhythm. No murmur. ABDOMEN: Soft No tenderness. EXTREMITIES: No pedal edema. No calf tenderness. NEUROLOGICAL: Patient is awake, alert and oriented x3. Assessment: Syncopal episodes Recent Covid 19 Coronary artery disease with previous stenting of the proximal and mid LAD, followed by stenting of the distal and mid RCA Elevated troponin, may be secondary to recent stenting and/or covid infection, no signs of ACS Paroxysmal atrial fibrillation, currently maintaining sinus mechanism History of CVA in the left inferior occipital lobe History of bradycardia Hypertension Plan: Continue patient's home cardiac medications except for changes below Lopressor decreased to 25 mg 1 time daily Discontinue aspirin and hydrochlorothiazide Patient is cleared for discharge by cardiology and may follow-up in the office with Dr. Delfina Mortensen as scheduled on 12/13 and [place]. Nurse practitioner note has been reviewed, I agree with documented findings and plan of care. Patient was seen and examined. Objective - Vital Signs Vital signs: Vital Signs Temp 97.7 F 12/02/22 07:00 Pulse 60 12/02/22 07:00 Resp 14 12/02/22 07:00 BP 113/64 12/02/22 07:00 Pulse Ox 97 12/02/22 07:47 FiO2 Intake & Output 12/01/22 12/02/22 12/02/22 18:59 06:59 18:59 Intake Total 360 Output Total 625 750 Balance -265 -750 Intake: Oral 360 Output: Urine 625 750 Other: Voiding Method Toilet Toilet # Voids 1 - Labs CBC & Chem 7: 11/30/22 11:35 11/30/22 11:35 Labs: Abnormal Lab Results - Last 24 Hours (Table) 11/30/22 11/30/22 11/30/22 Range/Units 11:35 11:35 11:35 Hemoglobin A1c 6.6 H (<=6.0) % Troponin I 0.321 H* (0.000-0.034) ng/mL HDL Cholesterol 33.30 L (40.00-60.00) mg/dL
--- NOTE | 2022-12-02 10:30 | P.PN ---
Subjective Progress Note Date: 12/01/22 Patient was seen for a follow-up. Patient is laying comfortably in the bed. Offers no complaints. No further syncopal spells. Objective - Vital Signs Vital signs: Vital Signs Temp 97.5 F L 12/01/22 14:13 Pulse 61 12/01/22 14:13 Resp 17 12/01/22 14:13 BP 106/58 12/01/22 14:13 Pulse Ox 97 12/01/22 14:13 FiO2 Intake & Output 11/30/22 12/01/22 12/01/22 18:59 06:59 18:59 Intake Total 180 Output Total 1175 625 Balance -1175 -445 Weight 70.307 kg Intake: Oral 180 Output: Urine 1175 625 Other: Voiding Method Toilet # Voids 1 1 - Exam Patient is alert and awake, very pleasant. Patient is walking in the hallway ho lding to the IV pole and the classroom instructional aide just by his side. He is walking very stable, normal gait. No imbalance appears. - Labs CBC & Chem 7: 11/30/22 11:35 11/30/22 11:35 Labs: Abnormal Lab Results - Last 24 Hours (Table) 11/30/22 11/30/22 11/30/22 Range/Units 11:35 11:35 11:35 Hemoglobin A1c 6.6 H (<=6.0) % Troponin I 0.321 H* (0.000-0.034) ng/mL HDL Cholesterol 33.30 L (40.00-60.00) mg/dL 11/30/22 Range/Units 17:40 Hemoglobin A1c (<=6.0) % Troponin I 0.200 H* (0.000-0.034) ng/mL HDL Cholesterol (40.00-60.00) mg/dL Assessment and Plan Assessment: * Recurrent syncopal spells, probably due to orthostasis, rule out arrhythmia. Patient's orthostatics are slightly positive. 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 Plan: * Patient probably had syncopal spell. Need further cardiac workup. * Orthostatics checked supine blood pressure 120/59, with pulse rate 68, sitting 133/67, pulse 64, standing 109/61 with pulse of 71. * Tilt table test reported as negative. * Event monitor interrogation showed no arrhythmia/events. * Cardiology input appreciated. Lopressor has been decreased, which hopefully will help with the orthostasis. * EEG on 10/23/2022, which was normal. * Carotid Doppler from 10/23/2022 showed moderate atherosclerotic changes at the bilateral carotid bifurcation. Less than 50% stenosis in both proximal ICA. Antegrade flow in both vertebral arteries. No need to repeat carotid Doppler. * 2-D echo from 10/23/2022 revealed normal left ventricular systolic function with EF 50-55%. Left atrial size is mildly increased in volume. Mitral valve thickened. Mild MR, moderate AR. Cardiology on board. * Patient has paroxysmal atrial fibrillation. Continue Eliquis 2.5 mg twice a day, Plavix 75 mg. * Lipid panel with cholesterol 124, LDL 63, HDL 33 and triglycerides 138. C ontinue Lipitor 40 mg daily. * Hemoglobin A1c 6.7 on 10/24/2022. * Neurologically clear for discharge.
--- NOTE | 2022-12-02 11:27 | P.PN ---
Subjective Progress Note Date: 12/02/22 Patient was seen for a follow-up. Patient is laying comfortably in the bed. Offers no complaints. No further syncopal spells. Patient wants to go home. Denies dizziness, headache or nausea. Objective - Vital Signs Vital signs: Vital Signs Temp 97.7 F 12/02/22 07:00 Pulse 60 12/02/22 08:00 Resp 14 12/02/22 08:00 BP 113/64 12/02/22 07:00 Pulse Ox 97 12/02/22 07:47 FiO2 Intake & Output 12/01/22 12/02/22 12/02/22 18:59 06:59 18:59 Intake Total 360 118 Output Total 625 750 Balance -265 -750 118 Intake: Oral 360 118 Output: Urine 625 750 Other: Voiding Method Toilet Toilet Toilet Urinal # Voids 1 - Exam Patient is alert and awake, very pleasant. Patient's mental status, speech and language functions are normal. Cranial nerves revealed pupils equal round and reacting, visual madera are full, face is symmetric and tongue protrudes the midline. On muscle strength testing, patient has mild right pronation or drift. The strength is normal in arms and legs distally and proximally. Sensory to touch is equal with no neglect. No ataxia for [id number] testing. Patient walked for me in the hallway. He was very stable. Normal stride. He turned around well. He was able to get up from bed without difficulty. - Labs CBC & Chem 7: 11/30/22 11:35 11/30/22 11:35 Labs: Abnormal Lab Results - Last 24 Hours (Table) 11/30/22 11/30/22 Range/Units 11:35 11:35 Hemoglobin A1c 6.6 H (<=6.0) % Troponin I 0.321 H* (0.000-0.034) ng/mL Assessment and Plan Assessment: * Recurrent syncopal spells, probably due to orthostasis, rule out arrhythmia. Patient's orthostatics are slightly positive. 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 Plan: * Patient had a syncopal spell prior to arrival. Patient had mild orthostasis. Patient underwent cardiac workup as below, all came back negative. * Orthostatics checked supine blood pressure 120/59, with pulse rate 68, sitting 133/67, pulse 64, standing 109/61 with pulse of 71. * Tilt table test reported as negative. * Event monitor interrogation showed no arrhythmia/events. * Cardiology input appreciated. Lopressor has been decreased, which hopefully will help with the orthostasis. * EEG on 10/23/2022, which was normal. * Carotid Doppler from 10/23/2022 showed moderate atherosclerotic changes at the bilateral carotid bifurcation. Less than 50% stenosis in both proximal ICA. Antegrade flow in both vertebral arteries. No need to repeat carotid Doppler. * 2-D echo from 10/23/2022 revealed normal left ventricular systolic function with EF 50-55%. Left atrial size is mildly increased in volume. Mitral valve thickened. Mild MR, moderate AR. Cardiology on board. * Patient has paroxysmal atrial fibrillation. Continue Eliquis 2.5 mg twice a day, Plavix 75 mg. * Lipid panel with cholesterol 124, LDL 63, HDL 33 and triglycerides 138. Continue Lipitor 40 mg daily. * Hemoglobin A1c 6.7 on 10/24/2022. * Neurologically clear for discharge. We will sign off.
[2022-12-02 11:53] LABS: BUN/Creat Ratio 23.27 Ratio (12.00-20.00); Blood Urea Nitrogen 25.6 mg/dL (9.0-27.0); Calcium 8.9 mg/dL (8.7-10.3); Carbon Dioxide 24.6 mmol/L (21.6-31.8); Chloride 105 mmol/L (96-109); Glucose 130 mg/dL (70-110); Potassium 4.2 mmol/L (3.5-5.5); Sodium 140 mmol/L (135-145)
[2022-12-02 14:42] VITALS: BP 103/60; PULSE 65; RESP 16; TEMP 97.6
--- NOTE | 2022-12-03 00:20 | P.DS ---
Providers Date of admission: 11/30/22 13:40 Attending physician: Myles Dobbs MD Consults: 11/30/22 13:34 Consult Physician Urgent Consulting Provider: Sudhir Aaron Consult Reason/Comments: Syncope Do you want consulting provider notified?: Yes 11/30/22 13:35 Consult Physician Urgent Consulting Provider: [facility] Consult Reason/Comments: Syncope Do you want consulting provider notified?: Yes Primary care physician: Gopal Ng Hospital Course: Diagnoses: Recurrent syncope while he was outside in the garden . Suspected secondary to orthostatic hypotension and dehydration. Status post pacemaker interrogation Acute kidney injury Recent history of coronary artery disease status post PCI to the left circumflex and right coronary artery Recent history of stroke (history of acute/subacute CVA in the left inferior occipital lobe on CT) and right hemiparesis History of postural hypertension and mild acute kidney injury and dehydration Recent history of Syncopal episode with pulselessness requiring brief CPR. He had cardiac cath and showed coronary artery disease with PCI to left circumflex and RCA Paroxysmal Atrial fibrillation Hypertension Diabetes mellitus Hyperlipidemia History of bradycardia Hospital course: This is a pleasant 82 years old male with past medical history of Diabetes Mellitus, GERD/Reflux, Hypertension, Osteoarthritis BRADYCARDIA, neuropathy, stroke, He was recently in this hospital for syncope with pulselessness requiring a brief CPR with suspected acute/subacute left occipital stroke (right arm weakness, dizziness and gait imbalance) He underwent cardiac cath and had PCI of left circumflex and the right coronary artery He was discharged on a Eliquis and Plavix. He had history of recurrent syncope over the last 2 months. Also patient with history of postural hypotension. He presents because of syncope. Since morning he was not feeling very well but he wants into the cart and to help his brother working, he himself was doing nothing just watching his brother when he felt dizzy and asked out, and the next thing He remembers he is in his house. Patient underwent further evaluation and seen by summer sessions director and neurologist, orthostatic vitals were positive. Patient hydrochlorothiazide was stopped and metoprolol dose delivered to have and 25, upon discharge, patient's symptoms improved. Also status post loop interpretation by summer sessions director who cleared him after discharge. Today patient was eager to go home. States that he is back to baseline. He was scheduled for discharge by cardiology and neurology services. Problems and management plan were discussed with the patient and he verbalized understanding and acceptance Patient was found stable and can be discharged home in guarded prognosis however he needs follow-up as an outpatient. Patient was instructed to follow up with PCP Dr. boyd garcia within one week and patient agrees Patient was instructed to follow up with summer sessions director Dr. Mortensen pending once [address] Mckenna 1-2 weeks and patient agrees to on mechanism appointments Physical exam Gen: patient is a AAOx3, no distress CVS: S1-S2, RRR, no murmur Lungs: B/L CTA, no wheezing Abdomen: soft, no distention, no tenderness, positive bowel sounds Extremity: no leg edema or induration Time spent more than 35 minutes he denies any urine bowel incontinence, no tongue biting, no jerky movements suspicious or seizure-like activity. However he vomited once at house and one in the ambulance on the way to the hospital when his family called 911 for him. Patient currently is fully awake and oriented, lying in bed who looks a little bit lethargic but no other specific complaints, he denies chest pain dyspnea or coughing, no GI or urinary complaints. He denies headache dizziness weakness or numbness currently. no blurred Vision or slurred speech. Left-sided cartilages consistent for his heart recently Also patient gives history of stroke last October with right hemiparesis, patient denies any new weakness Glucose 175, liver enzymes not elevated, troponin slightly up on 0.3 Chest x-ray: No acute process. I reviewed chest x-ray by myself EKG showing sinus bradycardia at [address]-T changes except for T-wave inversion in lead 3 and aVF Vitals stable and patient is afebrile, And he is saturating 99% on room air. His hemoglobin is 12.2 INR is 1.0. BMP is unremarkable. Troponin 0.3 t creatinine mildly elevated at 1.0 up to 1.3 EKG showing normal sinus rhythm at [address] T changes 12/01/2022 Patient with known new symptoms. No more dizziness or syncope. Hemodynamically stable but orthostatic vitals from yesterday they were positive Also patient with evidence of acute kidney injury with creatinine 1.0 and baseline equal or less than 1.0. I agree with starting normal saline 50 mL/h Also hold hydrochlorothiazide Pending pacemaker interrogation with summer sessions director team Neurologist on the case Possible discharge in 24-48 hours physical therapy evaluation is requested Plan - Discharge Summary Discharge Rx Participant: No New Discharge Prescriptions: New Metoprolol Tartrate [Lopressor] 25 mg PO DAILY #30 tab Continue Gabapentin 600 mg PO BID Apixaban [Eliquis] 2.5 mg PO BID #180 tab Clopidogrel [Plavix] 75 mg PO DAILY #90 tab Atorvastatin [Lipitor] 40 mg PO HS #30 tab Zinc Sulfate [Orazinc] 220 mg PO DAILY #30 cap Ascorbic Acid [Vitamin C] 1,000 mg PO DAILY #60 tab Cholecalciferol [Vitamin D3 (25 Mcg = 1000 Iu)] 50 mcg PO DAILY #30 tab metFORMIN HCL 500 mg PO DIRECTED Losartan [Cozaar] 100 mg PO DAILY 30 Days #120 tab Discontinued hydroCHLOROthiazide 12.5 mg PO DAILY Metoprolol Tartrate [Lopressor] 50 mg PO BID Discharge Medication List Gabapentin 600 mg PO BID 10/22/22 [History] Apixaban [Eliquis] 2.5 mg PO BID #180 tab 10/27/22 [Rx] Clopidogrel [Plavix] 75 mg PO DAILY #90 tab 10/27/22 [Rx] Ascorbic Acid [Vitamin C] 1,000 mg PO DAILY #60 tab 11/03/22 [Rx] Atorvastatin [Lipitor] 40 mg PO HS #30 tab 11/03/22 [Rx] Cholecalciferol [Vitamin D3 (25 Mcg = 1000 Iu)] 50 mcg PO DAILY #30 tab 11/03/22 [Rx] Zinc Sulfate [Orazinc] 220 mg PO DAILY #30 cap 11/03/22 [Rx] metFORMIN HCL 500 mg PO DIRECTED 11/30/22 [History] Losartan [Cozaar] 100 mg PO DAILY 30 Days #120 tab 12/02/22 [Rx] Metoprolol Tartrate [Lopressor] 25 mg PO DAILY #30 tab 12/02/22 [Rx] Follow up Appointment(s)/Referral(s): [facility] [NON-STAFF] - 1 Week Gopal Ng MD [Primary Care Provider] - 1-2 days Pelon Mortensen MD [STAFF PHYSICIAN] - 12/13/22 (may follow-up in the office with Dr. Delfina Mortensen as scheduled on 12/13 and .) Activity/Diet/Wound Care/Special Instructions: heart healthy diet activity is restricted till you see your doctor avoid aspirin Discharge Disposition: HOME SELF-CARE
--- NOTE | 2022-12-04 09:39 | P.EPPROC ---
- EP Procedure Note Electrophysiology Procedure Note: Diagnosis Recurrent syncope Twelve-lead EKG shows sinus mechanism normal NC narrow QRS normal ST segments Tilt table test per protocol Baseline blood pressure 128/65 mmHg Baseline heart rate is 69 beats a minute Patient was tilted upright at an angle of 70 per protocol. There was an imme diate drop in his blood pressure 102/59 mmHg. Thereafter his blood pressure remained in the high 90s and low 100s systolic Heart rates remained in the 70s and 80s No syncope Impression Mild orthostatic hypertension syndrome without symptoms No syncope
== END 2022-12-02 15:03 | disposition home or self-care (01) ==
LOC: EC 11:15 → 6NMEDSUR 13:40
PROVIDERS: ADMIT Internal Medicine; ATTEND Internal Medicine
DX: R55 Syncope and collapse (principal); N17.9 Acute kidney failure, unspecified; I25.10 Atherosclerotic heart disease of native coronary artery without angina pectoris; I48.0 Paroxysmal atrial fibrillation; E78.5 Hyperlipidemia, unspecified; I69.311 Memory deficit following cerebral infarction; R07.9 Chest pain, unspecified; I69.351 Hemiplegia and hemiparesis following cerebral infarction affecting right dominant side; E11.40 Type 2 diabetes mellitus with diabetic neuropathy, unspecified; R74.8 Abnormal levels of other serum enzymes; R00.1 Bradycardia, unspecified; K21.9 Gastro-esophageal reflux disease without esophagitis; I10 Essential (primary) hypertension; I25.2 Old myocardial infarction; Z79.899 Other long term (current) drug therapy; Z79.84 Long term (current) use of oral hypoglycemic drugs; Z79.01 Long term (current) use of anticoagulants; Z79.02 Long term (current) use of antithrombotics/antiplatelets; Z86.74 Personal history of sudden cardiac arrest; Z86.16 Personal history of COVID-19; Z95.5 Presence of coronary angioplasty implant and graft; Z82.49 Family history of ischemic heart disease and other diseases of the circulatory system; Z95.0 Presence of cardiac pacemaker
CPT/HCPCS: 99285; 36415; 94760; 93005; 97116; 97162; 97166; 93660; 80061; 80053; 80048; 84443; 83735; 84484; 85025; 85610; 85730; 83036; 71046; G0378 ×3